=== PATIENT | male | born 1945 | race Caucasian/White ===

== ENCOUNTER 2018-01-10 18:52 | Emergency (ER) | payer OTHER ==
[~2018-01-10] VITALS: Ht 167.6 cm; Wt 98.6 kg
[~2018-01-10 18:52] MED LIST: ACT/30 PO; AMIT75TA2 PO; ASPI-435 PO; ATOR-26 PO; CLOP1TAB5 PO; DONE10TA12 PO; GABA400C PO; GUAI1TAB55 PO; INSUINJ4 SQ; ISOS60TA25 PO; LISI-729 PO; MAGN400T6 PO; METO-551 PO; METO-596 PO; NITR0.4S UT; NVLGI SC; PANT40TA PO; RANO500T PO
[2018-01-10 19:06] VITALS: TEMP 36.7; Ht 167.6 cm; Wt 98.6 kg
[2018-01-10] MEDS ORDERED: ACETAMINOPHEN 500 MG TAB PO STA (19:16)
--- NOTE | 2018-01-10 19:26 | EMERGENCY ROOM VISIT NOTE ---
History Report prepared by Agapito: Kiersten Johnson Under the Supervision of: Dr. Alfonso Corral M.D. First contact with patient: 19:09 Chief Complaint: HEAD INJURY (MINOR) Stated Complaint: HEAD INJURY,ON BLOOD THINNER History of Present Illness The patient is a 72 year old male who presents to the Emergency Room with complaints of a head injury occurring shortly prior to arrival. The patient states that he tripped on the sidewalk and that he hit his head off of a brick wall. He does report having a headache, but denies passing out, nausea, vomiting , double vision, and neck pain. He states that he takes Aspirin and Plavix daily for his heart. He also reports that he takes 600 mg of Gabapentin in the morning and evening and that he takes 4 Tylenol per day. He denies a history of a brain bleed. The patient states that he does not know when his last Tetanus shot was. He reports that he had a CT scan of his carotid arteries today. Source of History: patient Onset: shortly prior to arrival Position: head Quality: other (injury) Associated Symptoms: + headache, No neck pain, No nausea, No vomiting Note: also denies: passing out, double vision Review of Systems See HPI for pertinent positives & negatives. A total of 10 systems reviewed and were otherwise negative. 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 (9) Peripheral vascular disease (10) PERSONAL HX OF TIA,& CEREBRAL INFARCTION W/OUT RES DEFICITS (11) Sleep apnea Family History No pertinent family history Social History Smoking Status: Current Every Day Smoker Marital Status: Housing Status: lives with family Occupation Status: retired Current/Historical Medications Scheduled Amitriptyline Hcl (Elavil), 1 TAB PO HS Aspirin (Aspirin 81), 1 TAB PO QAM Atorvastatin (Lipitor), 1 TAB PO HS Clopidogrel Bisulfate (Plavix), 1 TAB PO HS Donepezil Hydrochloride (Aricept), 1 TAB PO HS Gabapentin (Neurontin), 1 CAP PO TID Insulin Aspart (Novolog), 20 UNITS SC DAILYBB Insulin Aspart (Novolog), 10 UNITS SC DAILYBL Insulin Aspart (Novolog), 15 UNITS SC DAILYBD Insulin Glargine (Lantus Solostar Pen), 45 UNIT SQ QAM Insulin Glargine (Lantus Solostar Pen), 20 UNIT SQ QPM Isosorbide Mononitrate Ext Rel (Imdur Ext Rel), 60 MG PO HS Lisinopril (Prinivil), 5 MG PO HS Magnesium Oxide (Mag-Ox), 400 MG PO QAM Metoprolol Tartrate (Lopressor), 1 TAB PO QPM Metoprolol Tartrate (Lopressor), 1 TAB PO QAM Nitroglycerin (Nitrostat), 0.4 MG UT PRN Pantoprazole Sodium (Protonix), 1 TAB PO QAM Pioglitazone Hcl (Actos), 30 MG PO QAM Ranolazine (Ranexa), 1 TAB PO BID Scheduled PRN Guaifenesin Ext Rel (Mucinex Ext Rel), 600 MG PO Q12 PRN for Cough Allergies Coded Allergies: Fentanyl (Verified Adverse Reaction, Mild, vomiting, 04/10/15) Oxycodone (Verified Adverse Reaction, Mild, vomiting, 04/10/15) Uncoded Allergies: DARVOCET (Allergy, Severe, NAUSEA, 05/16/15) Physical Exam Vital Signs Date Time Temp Pulse Resp B/P (MAP) Pulse Ox O2 Delivery O2 Flow Rate FiO2 01/10/18 20:55 83 164/59 94 01/10/18 19:08 19 92 01/10/18 19:06 36.7 79 19 126/65 92 Room Air Physical Exam GENERAL: Patient is well appearing and in mild distress. EYES: No scleral icterus, unremarkable pupils. HEAD: Large hematoma right posterior scalp with overlying bleeding abrasions. No lacerations. ENT: Mucous membranes moist, no nasal congestion. NECK: No masses appreciated, no meningismus, trachea is midline. RESPIRATORY: No dyspnea. Clear to auscultation and equal bilaterally. No wheeze , no rhonchi. CARDIOVASCULAR: Regular rate and rhythm. No murmurs, rubs, gallops appreciated. BACK: No midline tenderness, no CVA tenderness EXTREMITIES: Normal motion all extremities, no cyanosis, no edema. NEUROLOGIC: Alert and oriented, no acute motor or sensory deficits, no focal weakness, cranial nerves grossly intact. SKIN: No rash, no jaundice, no diaphoresis. Medical Decision & Procedures ER Provider Diagnostic Interpretation: Radiology results and stated below per my review and radiologist interpretation: HEAD WITHOUT CONTRAST (CT) CLINICAL HISTORY: 72 years-old Male with posterior right head injury s/p fall. CTA neck earlier in day. Acute syncope TECHNIQUE: Multiple axial CT images of the head were obtained without contrast. A dose lowering technique was utilized adhering to the principles of ALARA. CT DOSE: 687.98 mGy.cm COMPARISON: CT head 04/10/2015. FINDINGS: No acute intracranial hemorrhage, midline shift, intracranial mass, hydrocephalus, territorial ischemia or abnormal extra-axial collection. Mild brain atrophy with ex vacuo ventriculomegaly. Remote lacunar infarctions about the left bedoya radiata and lentiform nucleus redemonstrated. Senescent calcifications about the basal ganglia. Vascular calcifications are seen at the level of the skull base. The calvarium is intact. Mild mucosal thickening of the sphenoid and left maxillary sinus with moderate ethmoid sinus disease. Soft tissue hematoma of the right parietal scalp at the vertex measures 1.3 x 4.6 cm. No opaque foreign body. Thinning of the bilateral optic lenses. Bilateral exophthalmos. IMPRESSION: 1. No acute intracranial abnormality or calvarial fracture. 2. Right parietal scalp hematoma. 3. Bilateral exophthalmos. The above report was generated using voice recognition software. It may contain grammatical, syntax or spelling errors. Electronically signed by: Magdy Nelson M.D. 01/10/2018 7:50 PM Dictated Date/Time: 01/10/2018 7:46 PM Medications Administered Medications (Trade) Dose Ordered Sig/Sabino Route Start Time Stop Time Status Last Admin Dose Admin Acetaminophen (Tylenol Tab) 1,000 mg NOW STAT PO 01/10/18 19:16 01/10/18 19:17 DC 01/10/18 19:26 1,000 MG Diphtheria/ Pertussis/Tetanus Vacc (Adacel Inj) 0.5 ml ONCE ONCE IM. 01/10/18 19:30 01/10/18 19:31 DC 01/10/18 21:03 0.5 ML ED Course 1909: The patient was evaluated in room C9. A complete history and physical exam was performed. 2020: Reevaluated the patient. Discussed results and discharge instructions: He verbalized understanding and agreement. The patient is ready for discharge. Medical Decision 72 yr old male arrives for evaluation of right posterior head injury. Trip and fall without other injuries. No neck pain nor TTP midline. Moderate headache without other concussion symptoms. Moderate hematoma with some abrasions over it which are deep enough to make it reasonable to treat Adacel. He has negative CT Head. He has with him at home. He was discussed symptoms requiring RTED. Stable and looks well at discharge. Medication Reconcilliation Current Medication List: was personally reviewed by me Blood Pressure Screening Patient's blood pressure: Normal blood pressure Impression Primary Impression: Closed head injury Additional Impressions: Hematoma of right parietal scalp Rrazcdamgl-lqpxjpy-vnlqjmtuz (DTP) vaccination Scribe Attestation The scribe's documentation has been prepared under my direction and personally reviewed by me in its entirety. I confirm that the note above accurately reflects all work, treatment, procedures, and medical decision making performed by me. Departure Information Dispostion Home / Self-Care Referrals Mckinley Wilkes M.D.(KISHOR) (PCP) Forms HOME CARE DOCUMENTATION FORM, IMPORTANT VISIT INFORMATION Patient Instructions ED Head Injury Closed, My [facility] Health Problem Qualifiers
[2018-01-10] MEDS ORDERED: DIPHTHERIA/TETANUS/PERTUSSIS 0.5 ML SYR/VIAL IM. ONE (19:30)
--- NOTE | 2018-01-10 19:51 | DIAGNOSTIC IMAGING REPORT ---
HEAD WITHOUT CONTRAST (CT) CLINICAL HISTORY: 72 years-old Male with posterior right head injury s/p fall. CTA neck earlier in day. Acute syncope TECHNIQUE: Multiple axial CT images of the head were obtained without contrast. A dose lowering technique was utilized adhering to the principles of ALARA. CT DOSE: 687.98 mGy.cm COMPARISON: CT head 04/10/2015. FINDINGS: No acute intracranial hemorrhage, midline shift, intracranial mass, hydrocephalus, territorial ischemia or abnormal extra-axial collection. Mild brain atrophy with ex vacuo ventriculomegaly. Remote lacunar infarctions about the left bedoya radiata and lentiform nucleus redemonstrated. Senescent calcifications about the basal ganglia. Vascular calcifications are seen at the level of the skull base. The calvarium is intact. Mild mucosal thickening of the sphenoid and left maxillary sinus with moderate ethmoid sinus disease. Soft tissue hematoma of the right parietal scalp at the vertex measures 1.3 x 4.6 cm. No opaque foreign body. Thinning of the bilateral optic lenses. Bilateral exophthalmos. IMPRESSION: 1. No acute intracranial abnormality or calvarial fracture. 2. Right parietal scalp hematoma. 3. Bilateral exophthalmos. The above report was generated using voice recognition software. It may contain grammatical, syntax or spelling errors. Electronically signed by: Magdy Nelson M.D. 01/10/2018 7:50 PM Dictated Date/Time: 01/10/2018 7:46 PM
[2018-01-10 20:55] VITALS: BP 164/59; PULSE 83; O2SAT 94
== END 2018-01-10 20:55 | disposition home or self-care (01) ==
LOC: C.EDB 18:53 → C.EDC 20:55
DX: S00.03XA Contusion of scalp, initial encounter (principal); W18.09XA Striking against other object with subsequent fall, initial encounter; Y92.480 Sidewalk as the place of occurrence of the external cause; R51 Headache; Z23 Encounter for immunization; E11.40 Type 2 diabetes mellitus with diabetic neuropathy, unspecified; Z79.4 Long term (current) use of insulin; Z79.82 Long term (current) use of aspirin; E78.5 Hyperlipidemia, unspecified; Z79.02 Long term (current) use of antithrombotics/antiplatelets; I10 Essential (primary) hypertension; F17.200 Nicotine dependence, unspecified, uncomplicated; Z86.73 Personal history of transient ischemic attack (TIA), and cerebral infarction without residual deficits; Z88.6 Allergy status to analgesic agent

== ENCOUNTER 2019-03-01 04:29 | Observation (INO) ==
[2019-03-01] MEDS ORDERED: NITROGLYCERIN 2% OINTMENT 30GM TUBE EXT STA (04:54)
[2019-03-01 05:04] LABS: Basophils # (auto) 0.02 K/uL (0-0.2); Basophils % (auto) 0.3 %; Eosinophils % (auto) 5.4 %; Hematocrit (blood only) 40.3 % (42-52); Immature Granulocytes # (auto) 0.01 K/uL (0.00-0.02); Immature Granulocytes % (auto) 0.1 %; Lymphocytes # (auto) 1.21 K/uL (1.2-3.4); Lymphocytes % (auto) 16.4 %; Mean Corpuscular Hgb Conc 32.3 g/dL (32-36); Mean Platelet Volume 10.6 fL (7.4-10.4); Monocytes # (auto) 0.82 K/uL (0.11-0.59); Monocytes % (auto) 11.1 %; Neutrophils # (auto) 4.91 K/uL (1.4-6.5); Neutrophils % (auto) 66.7 %; Platelet Count 144 K/uL (130-400); RDW Coefficient of Variation 15.6 % (11.5-14.5); RDW Standard Deviation 54.3 fL (36.4-46.3); Red Blood Count 4.24 M/uL (4.7-6.1); White Blood Count 7.37 K/uL (4.8-10.8)
[2019-03-01 05:25] LABS: Albumin Level 3.6 gm/dl (3.4-5.0); BUN Creatinine Ratio 18.1 (10-20); Calcium 8.2 mg/dl (8.5-10.1); Creatinine Clr Calc Pharmacy 53.6 ml/min; Est GFR (African American) 62.3; Est GFR (Non-African American) 53.8; Magnesium 2.3 mg/dl (1.8-2.4); Potassium 4.5 mmol/L (3.5-5.1)
[2019-03-01 05:30] LABS: Albumin Globulin Ratio 0.9 (0.9-2); Bilirubin,Total 0.4 mg/dl (0.2-1); Globulin 3.9 gm/dl (2.5-4.0); Total Protein 7.5 gm/dl (6.4-8.2); Troponin I 0.015 ng/ml (0-0.045)
[2019-03-01] MEDS ORDERED: SODIUM CHLORIDE 0.9% 500 ML IV SCH (06:30)
--- NOTE | 2019-03-01 07:39 | XRay Report ---
XR chest 1V portable HISTORY: Atypical chest pain COMPARISON: Chest 04/10/2015. FINDINGS: The heart remains mildly enlarged. There are poststernotomy changes. No pleural effusions. No pneumothorax. The lungs are clear. No evidence for pulmonary edema. IMPRESSION: No acute process within the chest. Stable mild cardiomegaly. Electronically signed by: Norberto Chan M.D. 03/01/2019 7:38 AM
--- NOTE | 2019-03-01 08:15 | Emergency Department Note ---
Entered by Alan Corado acting as a scribe for Melody Krueger DO History of Present Illness General Chief complaint: Chest Pain Stated complaint: PAIN IN CHEST Time Seen by Provider: 03/01/19 04:39 Source: patient History of Present Illness Provider complaint: chest pain Onset (ago): hour(s) 4 Location: chest Pain Consistency: + intermittent Maximum Pain Intensity: 3 Relieved By: + none Exacerbated By: + none Associated symptoms: + denies other symptoms The patient is a 73 y/o male who presents to the emergency department for intermittent chest pain that began 4 hours prior to arrival. The patient notes that he took 3 aspirins and 4 nitroglycerins before bed but the pain did not go away so he came to the emergency department. The patient notes that yesterday evening before bed he had similar pain but 3 nitroglycerins took away and took away the pain until this evening. He states that he follows with Dr. Ordonez for his angina with execration. He also reports that he has nitroglycerin for his angina though he hasnt needed to use them in the past. The patient has a history of angioplasty, triple bypass surgery, early onset heart issues, and diabetes. Patient states he does still smoke. The patient denies sweaty, being winded, nausea, and any other symptoms. Patient denies any recent illness or change in activity. States he has been compliant with all of his medications. Patient states no pain or symptoms currently. Patient states he does have a his tory of GERD and does take a stomach medication. States the symptoms last night and tonight are different than his usual heartburn/GERD symptoms. Home Medications Home Medications Medication Instructions Recorded Confirmed Type Medical Marijuana 1 - 3 drp PO UD 03/01/19 03/01/19 History Ranexa 1 tab PO BID 03/01/19 03/01/19 History acetaminophen [Tylenol Extra 1,000 mg PO Q6H PRN 03/01/19 03/01/19 History Strength] aspirin [Aspirin Childrens] 81 mg PO QAM 03/01/19 03/01/19 History atorvastatin 80 mg PO HS 03/01/19 03/01/19 History clopidogrel 75 mg PO HS 03/01/19 03/01/19 History donepezil 10 mg PO HS 03/01/19 03/01/19 History gabapentin 400 mg PO TID 03/01/19 03/01/19 History gabapentin 600 mg PO TID 03/01/19 03/01/19 History guaifenesin [Mucinex] 600 mg PO Q12H PRN 03/01/19 03/01/19 History hydrochlorothiazide 12.5 mg PO 3XWK PRN 03/01/19 03/01/19 History insulin NPH isoph U-100 human 25 unit SUBCUT .@ MIDNIGHT DAILY 03/01/19 03/01/19 History [Novolin N NPH U-100 Insulin] insulin NPH isoph U-100 human 36 unit SUBCUT .@ NOON DAILY 03/01/19 03/01/19 History [Novolin N NPH U-100 Insulin] insulin regular human [Novolin R 10 unit SUBCUT .WITH LUNCH 03/01/19 03/01/19 History Regular U-100 Insuln] insulin regular human [Novolin R 15 unit SUBCUT .WITH BREAKFAST 03/01/19 03/01/19 History Regular U-100 Insuln] insulin regular human [Novolin R 15 unit SUBCUT .WITH DINNER 03/01/19 03/01/19 History Regular U-100 Insuln] isosorbide mononitrate 60 mg PO AMHS 03/01/19 03/01/19 History lisinopril 5 mg PO HS 03/01/19 03/01/19 History magnesium oxide 400 mg PO QAM 03/01/19 03/01/19 History metoprolol tartrate 100 mg PO BID 03/01/19 03/01/19 History nitroglycerin [Nitrostat] 0.4 mg SUBLINGUAL UD PRN MDD 3 03/01/19 03/01/19 History doses in 15 minutes nortriptyline 75 mg PO HS 03/01/19 03/01/19 History pantoprazole 40 mg PO QAM 03/01/19 03/01/19 History pioglitazone 30 mg PO QAM 03/01/19 03/01/19 History Allergies Allergy/AdvReac Type Severity Reaction Status Date / Time fentanyl AdvReac Mild vomiting Verified 03/01/19 06:12 oxycodone AdvReac Mild vomiting Verified 03/01/19 06:12 DARVOCET Allergy Severe NAUSEA Uncoded 03/01/19 06:12 Past Med/Surg History Medical History Diabetes (Chronic) Surgical History H/O angioplasty S/P triple vessel bypass Family History Other Heart disease Social History Feels Safe at Home: Yes Smoking Status: Former smoker Review of Systems See HPI for pertinent positives & negatives. and A total of 10 systems reviewed and were otherwise negative Physical Exam Vital Signs Vital Signs - 24 hr 03/01/19 04:31 03/01/19 04:41 03/01/19 04:45 Temperature 36.5 C Temperature Source Oral Sepsis Recent Fever Within 48 Hours No Sepsis Action Taken by Nursing No Action Required Pulse Rate 77 78 78 Pulse Rate [Apical] Pulse Rate from SpO2 Sensor 78 78 Respiratory Rate 20 18 17 Respiratory Effort / Characteristics Non-Labored Spontaneous Respiratory Depth Normal Blood Pressure 147/75 H 152/78 H Blood Pressure [Right Arm] Blood Pressure Mean 99 102 Blood Pressure Mean [Right Arm] Pulse Oximetry 97 94 94 Oxygen Delivery Method Room Air Oxygen Flow Rate 03/01/19 05:00 03/01/19 05:30 03/01/19 06:29 Temperature Temperature Source Sepsis Recent Fever Within 48 Hours Sepsis Action Taken by Nursing Pulse Rate 75 72 Pulse Rate [Apical] 72 Pulse Rate from SpO2 Sensor 75 72 Respiratory Rate 16 21 18 Respiratory Effort / Characteristics Respiratory Depth Normal Blood Pressure 159/63 H 152/61 H Blood Pressure [Right Arm] 120/44 L Blood Pressure Mean 95 91 Blood Pressure Mean [Right Arm] 69 Pulse Oximetry 96 96 94 Oxygen Delivery Method Room Air Oxygen Flow Rate 03/01/19 07:06 Temperature Temperature Source Sepsis Recent Fever Within 48 Hours Sepsis Action Taken by Nursing Pulse Rate Pulse Rate [Apical] 75 Pulse Rate from SpO2 Sensor Respiratory Rate 16 Respiratory Effort / Characteristics Respiratory Depth Blood Pressure Blood Pressure [Right Arm] 117/47 L Blood Pressure Mean Blood Pressure Mean [Right Arm] 70 Pulse Oximetry 93 Oxygen Delivery Method Nasal Cannula Oxygen Flow Rate 2 GENERAL: alert, well appearing, well nourished, no distress, non-toxic EYE EXAM: normal conjunctiva, PERRL and EOM's grossly intact OROPHARYNX: no exudate, no erythema, lips, buccal mucosa, and tongue normal and mucous membranes are moist NECK: supple, no nuchal rigidity, no adenopathy, non-tender LUNGS: Clear to auscultation. Normal chest wall mechanics. No wheezes, rhonchi, or, rales. HEART: no murmurs, S1 normal and S2 normal, no reproducible chest pain ABDOMEN: abdomen soft, non-tender, normo-active bowel sounds, no masses, no rebound or guarding. BACK: Back is symmetrical on inspection and there is no deformity, no midline tenderness, no CVA tenderness. SKIN: no rashes and no bruising, no petechiae UPPER EXTREMITIES: upper extremities are grossly normal. FROM, nml pulses b/l. LOWER EXTREMITIES: 1+ bilateral lower extremity edema, well healed surgical scare to distal lower extremity consistent with prior vein harvest. NEURO EXAM: Cranial nerves II-XII intact, normal speech, no weakness of arms, no weakness of legs. Course 0444: Past medical records reviewed. The patient was evaluated in room A10. A complete history and physical exam was performed. 0548: Recent outpatient cardiology visit notes reviewed. Patient with extensive CAD and PVD. 0617: I checked on the patient. Updated on results. He notes no current chest pain. 0634: I spoke with Dr. Vivas hospitalist. Administered Medications Sodium Chloride (Nss) 500 mls @ 125 mls/hr IV .Q4H [facility] Stop: 03/31/19 06:29 Last Admin: 03/01/19 06:26 Dose: 125 mls/hr Documented by: [id number] Discontinued Medications Nitroglycerin (Nitro-Bid 2%) 1 inch EXT NOW STA Stop: 03/01/19 04:55 Last Admin: 03/01/19 05:05 Dose: 1 inch Documented by: [id number] Medical Decision Making Differential Diagnosis the differential was considered includes acute myocardial infarction, acute coronary syndrome, myocarditis, pericarditis, pericardial effusions /tamponad, esophageal perforation, thoracic aortic dissection, pulmonary embolism, pneumonia, pneumothorax, pancreatitis, shingles, acute cholecystitis, perforated abdominal viscus. Medical Records Attestation: I reviewed the patient's medical records. Home Medications Current Medication List: was personally reviewed by me Laboratory Data Attestation: I reviewed the patient's lab results. Result diagrams: 03/01/19 04:48 03/01/19 04:48 Lab Results 03/01/19 03/01/19 Range/Units 04:48 04:48 WBC 7.37 (4.8-10.8) K/uL RBC 4.24 L (4.7-6.1) M/uL Hgb 13.0 L (14.0-18.0) g/dL Hct 40.3 L (42-52) % MCV 95.0 (80-100) fL MCH 30.7 (25-34) pg MCHC 32.3 (32-36) g/dL RDW Std Deviation 54.3 H (36.4-46.3) fL RDW Coeff of Geremias 15.6 H (11.5-14.5) % Plt Count 144 (130-400) K/uL MPV 10.6 H (7.4-10.4) fL Immature Gran % (Auto) 0.1 % Neut % (Auto) 66.7 % Lymph % (Auto) 16.4 % Rogers % (Auto) 11.1 % Eos % (Auto) 5.4 % Baso % (Auto) 0.3 % Immature Gran # (Auto) 0.01 (0.00-0.02) K/uL Neut # (Auto) 4.91 (1.4-6.5) K/uL Lymph # (Auto) 1.21 (1.2-3.4) K/uL Rogers # (Auto) 0.82 H (0.11-0.59) K/uL Eos # (Auto) 0.40 (0-0.5) K/uL Baso # (Auto) 0.02 (0-0.2) K/uL Sodium 139 (136-145) mmol/L Potassium 4.5 (3.5-5.1) mmol/L Chloride 107 (98-107) mmol/L Carbon Dioxide 29 (21-32) mmol/L Anion Gap 3.0 (3-11) BUN 24 H (7-18) mg/dl Creatinine 1.30 (0.6-1.4) mg/dl Est Cr Clr Drug Dosing 53.6 ml/min Est GFR ( Amer) 62.3 Est GFR (Non-Af Amer) 53.8 BUN/Creatinine Ratio 18.1 (10-20) Glucose 183 H (70-99) mg/dl Calcium 8.2 L (8.5-10.1) mg/dl Magnesium 2.3 (1.8-2.4) mg/dl Total Bilirubin 0.4 (0.2-1) mg/dl AST 16 (15-37) U/L ALT 21 (12-78) U/L Alkaline Phosphatase 111 (45-117) U/L Troponin I 0.015 (0-0.045) ng/ml NT-Pro-B Natriuret Pep 698 (0-900) pg/ml Total Protein 7.5 (6.4-8.2) gm/dl Albumin 3.6 (3.4-5.0) gm/dl Globulin 3.9 (2.5-4.0) gm/dl Albumin/Globulin Ratio 0.9 (0.9-2) Lipase 190 (73-393) U/L ECG Data Indication: chest pain Rate (beats per minute): 79 Rhythm: sinus rhythm Findings: + other (QTC and QRS are normal.), + 1st degree AV block and + left axis deviation; no acute ischemic change Comparison ECG Date: from (03/12/15) Change: no significant change Blood Pressure Blood Pressure Findings: Elevated blood pressure Blood Pressure Disposition: further management by hospitalist MDM Narrative Patient here well-appearing at rest with no recurrent symptoms. Patient with significant past medical history for CAD and peripheral vascular disease and concerning story for evolving anginal symptoms over the last 48 hours. No other evidence of acute infectious etiology. Chest x-ray without effusions, pulmonary edema, or focal infiltrate. Patient hemodynamically stable here. Patient with no acute EKG changes and first troponin negative. Given concerning story and significant risk factors and past medical history, case discussed with hospitalist for additional inpatient evaluation and likely cardiology consultation. Patient and were made aware of all results, were in agreement with plan. Patient's other labs appear stable compared to baseline including his creatinine and H&H. Patient with mild hyperglycemia although is a known diabetic. No evidence of DKA or HHNK. Impression & Plan Unstable angina, Chest pain Discharge Plan Visit Data Chief Complaint: Chest Pain Stated Complaint: PAIN IN CHEST ED Provider: Melody Krueger Discharge Problem: Unstable angina, Chest pain Patient Disposition: Being Evaluated by Hospitalist Forms Stand Alone Forms: Call Back Authorization, [facility] StoreAge Prescriptions Prescriptions: No Action atorvastatin 80 mg Tablet 80 mg PO HS RF: 0 clopidogrel 75 mg Tablet 75 mg PO HS RF: 0 pantoprazole 40 mg Tablet,Delayed Release (Dr/Ec) 40 mg PO QAM RF: 0 aspirin [Aspirin Childrens] 81 mg Tablet,Chewable 81 mg PO QAM RF: 0 magnesium oxide 400 mg magnesium Tablet 400 mg PO QAM RF: 0 metoprolol tartrate 100 mg Tablet 100 mg PO BID RF: 0 donepezil 10 mg Tablet 10 mg PO HS RF: 0 nitroglycerin [Nitrostat] 0.4 mg Tablet, Sublingual 0.4 mg sublingual UD MDD 3 doses in 15 minutes PRN (Reason: Chest Pain) RF: 0 gabapentin 600 mg Tablet 600 mg PO TID RF: 0 gabapentin 400 mg Capsule 400 mg PO TID RF: 0 isosorbide mononitrate 60 mg Tablet Extended Release 24 Hr 60 mg PO AMHS RF: 0 lisinopril 10 mg Tablet 5 mg PO HS RF: 0 pioglitazone 30 mg Tablet 30 mg PO QAM RF: 0 guaifenesin [Mucinex] 600 mg Tablet Extended Release 12hr 600 mg PO Q12H PRN (Reason: cough and congestion) RF: 0 nortriptyline 75 mg Capsule 75 mg PO HS RF: 0 Novolin R Regular U-100 Insuln 100 unit/mL solution 10 unit subcut .WITH LUNCH RF: 0 Novolin R Regular U-100 Insuln 100 unit/mL solution 15 unit subcut .WITH DINNER RF: 0 Novolin R Regular U-100 Insuln 100 unit/mL solution 15 unit subcut .WITH BREAKFAST RF: 0 Novolin N NPH U-100 Insulin 100 unit/mL suspension 36 unit subcut .@ NOON DAILY RF: 0 Novolin N NPH U-100 Insulin 100 unit/mL suspension 25 unit subcut .@ MIDNIGHT DAILY RF: 0 acetaminophen [Tylenol Extra Strength] 500 mg Tablet 1,000 mg PO Q6H PRN (Reason: Pain) RF: 0 hydrochlorothiazide 12.5 mg Tablet 12.5 mg PO 3XWK PRN (Reason: Unknown) RF: 0 Ranexa 1 tab PO BID RF: 0 Medical Marijuana 1 - 3 drp PO UD RF: 0 Referrals Referrals: Mckinley Wilkes MD [Primary Care Provider] - Discharge Problem: Chest pain Qualifiers: Chest pain type: unspecified Qualified Code(s): R07.9 - Chest pain, unspecified The scribe's documentation has been prepared under my direction and personally reviewed by me in its entirety. I confirm that the note above accurately reflects all work, treatment, procedures, and medical decision making performed by me.
--- NOTE | 2019-03-01 09:04 | History & Physical Report ---
Date of Service March 01, 2019 Assessment & Plan (1) Angina pectoris: (2) CAD (coronary artery disease): CAD s/p angioplasty RCA in 1988, s/p CABG x 3 in 1997, NSTEMI demand ischemia after spinal surgery in 2012, S/P DWAYNE and angioplasty left circumflex in 2016; H/O chronic angina Pt presented with nonradiating anterior chest pain with associated mild diaphoresis started 1 AM this morning. Took 4 nitro and 3 baby aspirin at home without relief. Denies shortness of breath, dizziness, nausea, vomiting, palpitations. Presented to ER vitals were stable. 1 inch Nitropaste was placed in ER and patient has been chest pain free since. Troponin: 0.015, EKG no acute ischemic changes noted, CXR: No acute changes CHEST PAIN R/O ACS. Risk factors: Hx, CAD, HTN, hyperlipidemia, DM, obesity, tobacco use -Monitor Vitals -Repeat EKG in am -Will trend troponin -Echo -Lipid panel in am, continue statin -Continue ASA & beta ning -Has nitropaste in place -Continue Plavix, Imdur -Cardiology consult (3) PAD (peripheral artery disease): S/P angioplasty of left external iliac and right common iliac stenosis 07/2010; Dr. Brendon Royal at [facility] [place] (4) Diabetes mellitus, type II: A1c: 6.5 on 12/14/18 -Hold Actos -Hold home insulin -Novolog sliding scale, Lantus, Glycemic pharmacy consult to assist (5) HTN (hypertension): Stable -Continue Lisinopril, metoprolol -Holding home prn HCTZ and reassess extremity edema tomorrow (6) HLD (hyperlipidemia): -Continue atorvastatin (7) VENICE (obstructive sleep apnea): -CPAP HS with 2L oxygen (8) GERD (gastroesophageal reflux disease): -Continue PPI (9) Tobacco use: Currently smoking 4 cigarettes a day -Smoking cessation encouraged -Denies nicotine patch (10) Chronic back pain: On medical marijuana -Continue gabapentin DVT Prophylaxis -Heparin SQ Full Code as per discussion with pt Follows with Dr Wilkes for routine care Pt was seen and care coordinated with Dr Peralta. See addendum History of Present Illness Chief Complaint: CP Primary Care Provider: Mckinley Wilkes MD Pt is 73 y/o M with PMH CAD s/p angioplasty RCA in 1988, s/p CABG x 3 in 1997, NSTEMI demand ischemia after spinal surgery in 2012, S/P DWAYNE and angioplasty left circumflex in 2017, chronic angina, PAD, AAA, TIA, HTN, HLD, DM II, tobacco use, VENICE, COPD presented to ER with c/o CP. Patient states last night around 1 AM started with anterior chest pain with associated mild diaphoresis. Chest pain was nonradiating. Denies SOB, dizziness, palpitations, N/V. Patient states took 3 nitroglycerin without relief and then took a fourth nitroglycerin without relief. Reports took 3 baby aspirin. Chest pain continued and he presented to the ER this morning. In the ER patient 1 inch Nitropaste was applied and patient has been chest pain-free since. 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 Patient states chest pain he experienced today felt like his prior anginal chest pain. Patient followed up with cardiology-Dr. Ordonez in 01/2019 and was started on HCTZ couple times a week for BLE edema. Patient states this is been helpful at decreasing his BLE edema. Denies any increased edema. Denies fever/chills, N/V/D/C, MARI, dizziness, syncope, vision changes, neck pain, SOB, orthopnea, palpitations, cough, sore throat, choking, otalgia, rhinorrhea, abdominal pain, paresthesias, weakness, rashes, urinary symptoms. History cardiac cath 2017: Patent PFEIFFER-LAD and SVG-right PDA, Left circumflex received DWAYNE proximal lesion and balloon to mid lesion. Allergies Allergy/AdvReac Type Severity Reaction Status Date / Time fentanyl AdvReac Mild vomiting Verified 03/01/19 06:12 oxycodone AdvReac Mild vomiting Verified 03/01/19 06:12 DARVOCET Allergy Severe NAUSEA Uncoded 03/01/19 06:12 Home Medications Home Medications Medication Instructions Recorded Confirmed Type Medical Marijuana 1 - 3 drp PO UD 03/01/19 03/01/19 History acetaminophen [Tylenol Extra 1,000 mg PO BID PRN 03/01/19 03/01/19 History Strength] aspirin [Aspirin Childrens] 81 mg PO QAM 03/01/19 03/01/19 History atorvastatin 80 mg PO HS 03/01/19 03/01/19 History clopidogrel 75 mg PO HS 03/01/19 03/01/19 History donepezil 10 mg PO HS 03/01/19 03/01/19 History gabapentin 600 mg PO TID 03/01/19 03/01/19 History guaifenesin [Mucinex] 600 mg PO Q12H PRN 03/01/19 03/01/19 History hydrochlorothiazide 12.5 mg PO 3XWK PRN 03/01/19 03/01/19 History insulin NPH isoph U-100 human 25 unit SUBCUT .@ MIDNIGHT DAILY 03/01/19 03/01/19 History [Novolin N NPH U-100 Insulin] insulin NPH isoph U-100 human 36 unit SUBCUT .@ NOON DAILY 03/01/19 03/01/19 History [Novolin N NPH U-100 Insulin] insulin regular human [Novolin R 10 unit SUBCUT .WITH LUNCH 03/01/19 03/01/19 History Regular U-100 Insuln] insulin regular human [Novolin R 15 unit SUBCUT .WITH BREAKFAST 03/01/19 03/01/19 History Regular U-100 Insuln] insulin regular human [Novolin R 15 unit SUBCUT .WITH DINNER 03/01/19 03/01/19 History Regular U-100 Insuln] isosorbide mononitrate 60 mg PO AMHS 03/01/19 03/01/19 History lisinopril 5 mg PO HS 03/01/19 03/01/19 History magnesium oxide 400 mg PO QAM 03/01/19 03/01/19 History metoprolol tartrate 100 mg PO BID 03/01/19 03/01/19 History nitroglycerin [Nitrostat] 0.4 mg SUBLINGUAL UD PRN MDD 3 03/01/19 03/01/19 History doses in 15 minutes nortriptyline 75 mg PO HS 03/01/19 03/01/19 History pantoprazole 40 mg PO QAM 03/01/19 03/01/19 History pioglitazone 30 mg PO QAM 03/01/19 03/01/19 History Past Med/Surg History Medical History Angina pectoris (Chronic) AAA (abdominal aortic aneurysm) (Chronic) PAD (peripheral artery disease) (Chronic) S/P angioplasty of left external iliac and right common iliac stenosis 07/2010; Dr. 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) Diabetes (Chronic) Surgical History History of cataract surgery (Chronic) History of cardiac cath (Chronic) H/O angioplasty S/P triple vessel bypass Family History Other Diabetes Heart disease Stroke Social History Feels Safe at Home: Yes Smoking Status: Current every day smoker Cigarettes Per Day: 4 Hx Alcohol Use: Yes Alcohol Intake Frequency: Holidays/Special Occasions Hx Substance Use: Yes Substance Use Type Other:: Medical marijuana Review of Systems Review of Systems: All systems reviewed & are unremarkable except as noted in HPI & below Physical Exam Physical Exam: General: no acute distress, obese, chronic ill appearing Head: normocephalic, atraumatic Eyes: PERRL, EOM's intact, conjunctiva non-injected, anicteric ENT: normal inspection external ears, nose, mucous membranes moist Neck: supple, trachea midline Lungs: clear, no respiratory distress, no wheezing/rhonchi/rales CV: RRR, no murmur, anterior mid chest wall with tenderness to palpation, 1+ pretibial edema Abd: normal BS, soft, non-tender Ext: no cyanosis, no calf tenderness Neuro: A&O x 3, no focal deficits noted, normal affect Skin: warm, dry Results & Data Vital Signs (Past 12 Hours) Vital Signs Temp Pulse Pulse Resp BP BP Pulse Ox 03/01/19 08:32 66 18 123/76 98 03/01/19 07:06 75 16 117/47 L 93 03/01/19 06:29 72 18 120/44 L 94 03/01/19 05:30 72 21 152/61 H 96 03/01/19 05:00 75 16 159/63 H 96 03/01/19 04:45 78 17 94 03/01/19 04:41 78 18 152/78 H 94 03/01/19 04:31 36.5 C 77 20 147/75 H 97 Laboratory Results Short CBC 03/01/19 Range/Units 04:48 WBC 7.37 (4.8-10.8) K/uL Hgb 13.0 L (14.0-18.0) g/dL Hct 40.3 L (42-52) % Plt Count 144 (130-400) K/uL BMP 03/01/19 04:48 Sodium 139 Potassium 4.5 Chloride 107 Carbon Dioxide 29 BUN 24 H Creatinine 1.30 Glucose 183 H Calcium 8.2 L Cardiac Enzymes 03/01/19 Range/Units 04:48 Troponin I 0.015 (0-0.045) ng/ml Liver Function 03/01/19 Range/Units 04:48 Total Bilirubin 0.4 (0.2-1) mg/dl AST 16 (15-37) U/L ALT 21 (12-78) U/L Alkaline Phosphatase 111 (45-117) U/L Albumin 3.6 (3.4-5.0) gm/dl Diagnostic Findings CXR: IMPRESSION: No acute process within the chest. Stable mild cardiomegaly. Supervising Physician Co-Signing Physician Notes I have seen and examined the patient with physician equity sales assistant and agree with the assessment and plan as initially documented and would like to update that Patient is now to be transferred to [facility] in [place] for non-ST segment elevation myocardial infarction. Patient currently on IV heparin drip. Patient's care was discussed by software security architect Dr. Dee to the accepting cardiology physician Dr. Mckinley Cadena with possible plans for cardiac catheterization On exam General: comfortable Heart: regular rate and rhytm Lungs: clear to auscultation bilaterally Abdomen: soft, nontender, positive bowel sounds Extremities: moves all extremities
[2019-03-01] MEDS ORDERED: CARBOHYDRATES FOR HYPOGLYCEMIA PO PRN (09:29)
[2019-03-01] MEDS ORDERED: MAGNESIUM OXIDE 400 MG TAB PO SCH (09:29)
[2019-03-01] MEDS ORDERED: GLUCOSE 10 TABS/TUBE PO PRN (09:29)
[2019-03-01] MEDS ORDERED: GLUCAGON FOR INJ 1 MG VIAL SQ PRN (09:29)
[2019-03-01] MEDS ORDERED: PANTOprazole 40 MG TAB PO SCH (09:29)
[2019-03-01] MEDS ORDERED: ISOSORBIDE MONO EXTENDED REL 60 MG TABCR PO SCH (09:29)
[2019-03-01] MEDS ORDERED: METOPROLOL TARTRATE 100 MG TAB PO SCH (09:29)
[2019-03-01] MEDS ORDERED: DEXTROSE 50% 50 ML SYRINGE IV PRN (09:29)
[2019-03-01] MEDS ORDERED: GLUCOSE 40% GEL 15 GM TUBE PO PRN (09:29)
[2019-03-01] MEDS ORDERED: ASPIRIN 81 MG ECTAB PO SCH (09:29)
[2019-03-01] MEDS ORDERED: PHARMACY GLYCEMIC MGMT CONSULT SCH (11:00)
[2019-03-01] MEDS ORDERED: PERFLUTREN LIPID MICROSPHERE (DEFINITY) IV ONE (11:11)
[2019-03-01] MEDS: GABAPENTIN 600 MG TAB PO SCH ×2 (11:22→14:39)
[2019-03-01] MEDS ORDERED: INSULIN HUMAN NPH SC ONE (11:30)
--- NOTE | 2019-03-01 11:31 | Cardiology Consultation ---
Date of Consultation March 01, 2019 Assessment & Plan (1) NSTEMI (non-ST elevated myocardial infarction): The patient is currently pain-free. I will start him on heparin in addition to his current medications. His last cardiac catheterization and stent placement in 2016 along with the majority of his cardiac interventions have been done at [facility] in [place]. He will need a repeat cardiac catheterization. The patient is requesting [facility] and I am in agreement. I will make contact and arrange for transfer, most likely in the morning as long as patient remains stable. (2) CAD (coronary artery disease): (3) Diabetes mellitus, type II: (4) Hx of CABG: History of Present Illness Attending Physician: Nick Peralta MD History of Present Illness This is a 73-year-old male patient with the history as outlined below. The patient has significant vascular disease and chronic angina. He states his last angina episode was several months ago and was relieved with sublingual nitroglycerin. He has been doing well and then last evening he was awoken from sleep with severe angina. He took a total of 4 sublingual nitroglycerin which did not resolve his discomfort and he was brought to the emergency department by his . After treatment in the emergency department his chest pain went away and he was admitted to the hospital. His EKG did not show any acute changes. His initial troponin was essentially negative at point of care in the emergency department. His second troponin however has elevated consistent with a non- STEMI. He denies shortness of breath orthopnea. He has no prior history of cardiac arrhythmias. Past medical history: 1.Long-standing history of coronary artery disease status post remote coronary intervention with angioplasty to the right coronary artery in 1988. 2.History of coronary bypass grafting in 1997 for a diffuse 3-vessel disease receiving a PFEIFFER graft to the LAD, saphenous vein graft to the circumflex obtuse marginal, and saphenous vein graft to the posterior descending artery. 3.Chronic class II angina pectoris. 4.History of non-ST segment elevation myocardial infarction in the setting of demand based ischemia with associated spinal surgery in August 2012. 5.Chronic obstructive lung disease. 6.History of past TIA. 7.History of atherosclerotic peripheral vascular disease status post PTCA of the left external iliac and right common iliac arteries in July of 2010. 8.Atherosclerotic carotid plaquing. 9.Hyperlipidemia. 10.Long-standing insulin-dependent diabetes mellitus. 11.Chronic obstructive lung disease. 12. Status post coronary intervention, proximal and mid left circumflex on 01/29/2017, receiving drug-eluting stent to proximal lesion, balloon angioplasty to the distal lesion. Allergies Allergy/AdvReac Type Severity Reaction Status Date / Time fentanyl AdvReac Mild vomiting Verified 03/01/19 06:12 oxycodone AdvReac Mild vomiting Verified 03/01/19 06:12 DARVOCET Allergy Severe NAUSEA Uncoded 03/01/19 06:12 Home Medications Home Medications Medication Instructions Recorded Confirmed Type Medical Marijuana 1 - 3 drp PO UD 03/01/19 03/01/19 History acetaminophen [Tylenol Extra 1,000 mg PO BID PRN 03/01/19 03/01/19 History Strength] aspirin [Aspirin Childrens] 81 mg PO QAM 03/01/19 03/01/19 History atorvastatin 80 mg PO HS 03/01/19 03/01/19 History clopidogrel 75 mg PO HS 03/01/19 03/01/19 History donepezil 10 mg PO HS 03/01/19 03/01/19 History gabapentin 600 mg PO TID 03/01/19 03/01/19 History guaifenesin [Mucinex] 600 mg PO Q12H PRN 03/01/19 03/01/19 History hydrochlorothiazide 12.5 mg PO 3XWK PRN 03/01/19 03/01/19 History insulin NPH isoph U-100 human 25 unit SUBCUT .@ MIDNIGHT DAILY 03/01/19 03/01/19 History [Novolin N NPH U-100 Insulin] insulin NPH isoph U-100 human 36 unit SUBCUT .@ NOON DAILY 03/01/19 03/01/19 History [Novolin N NPH U-100 Insulin] insulin regular human [Novolin R 10 unit SUBCUT .WITH LUNCH 03/01/19 03/01/19 History Regular U-100 Insuln] insulin regular human [Novolin R 15 unit SUBCUT .WITH BREAKFAST 03/01/19 03/01/19 History Regular U-100 Insuln] insulin regular human [Novolin R 15 unit SUBCUT .WITH DINNER 03/01/19 03/01/19 History Regular U-100 Insuln] isosorbide mononitrate 60 mg PO AMHS 03/01/19 03/01/19 History lisinopril 5 mg PO HS 03/01/19 03/01/19 History magnesium oxide 400 mg PO QAM 03/01/19 03/01/19 History metoprolol tartrate 100 mg PO BID 03/01/19 03/01/19 History nitroglycerin [Nitrostat] 0.4 mg SUBLINGUAL UD PRN MDD 3 03/01/19 03/01/19 History doses in 15 minutes nortriptyline 75 mg PO HS 03/01/19 03/01/19 History pantoprazole 40 mg PO QAM 03/01/19 03/01/19 History pioglitazone 30 mg PO QAM 03/01/19 03/01/19 History Patient History Medical History Angina pectoris (Chronic) AAA (abdominal aortic aneurysm) (Chronic) PAD (peripheral artery disease) (Chronic) S/P angioplasty of left external iliac and right common iliac stenosis 07/2010; Dr. 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) Diabetes (Chronic) Surgical History History of cataract surgery (Chronic) History of cardiac cath (Chronic) H/O angioplasty S/P triple vessel bypass Family History Other Diabetes Heart disease Stroke Social History Feels Safe at Home: Yes Smoking Status: Current every day smoker Cigarettes Per Day: 4 Hx Alcohol Use: Yes Alcohol Intake Frequency: Holidays/Special Occasions Hx Substance Use: Yes Substance Use Type Other:: Medical marijuana Review of Systems Review of Systems: All systems reviewed & are unremarkable except as noted in HPI & below Nothing additional to add Physical Exam Physical Exam: General: no acute distress and stated age Head: normocephalic, no masses, lesions, tenderness or abnormalities Eyes: conjunctiva are pink and non-injected, sclera clear Neck: supple, no adenopathy, no bruits, normal jugular venous pulse, no hepatojugular reflux Chest: normal shape and normal respiratory effort Lungs: clear to auscultation and percussion Cardiac Exam: - regular rate & rhythm, no murmurs gallops or rubs - normal S1, normal S2 Pulses: 2(+) throughout Abdomen: abdomen soft, non-tender, no abnormal masses and no hepatosplenomegaly Musculoskeletal: no gait disturbance, no joint inflammation, no deforming arthritis Extremities: no edema and no cyanosis Neuro: grossly normal exam Results & Data Vital Signs (Past 12 Hours) Vital Signs Temp Pulse Pulse Resp BP BP Pulse Ox 03/01/19 10:39 66 03/01/19 09:11 78 16 116/42 L 98 03/01/19 08:39 36.6 C 66 16 136/76 96 03/01/19 08:32 66 18 123/76 98 03/01/19 07:06 75 16 117/47 L 93 03/01/19 06:29 72 18 120/44 L 94 03/01/19 05:30 72 21 152/61 H 96 03/01/19 05:00 75 16 159/63 H 96 03/01/19 04:45 78 17 94 03/01/19 04:41 78 18 152/78 H 94 03/01/19 04:31 36.5 C 77 20 147/75 H 97 Laboratory Results Laboratory Results - last 24 hr 03/01/19 03/01/19 03/01/19 04:48 04:48 09:56 WBC 7.37 RBC 4.24 L Hgb 13.0 L Hct 40.3 L MCV 95.0 MCH 30.7 MCHC 32.3 RDW Std Deviation 54.3 H RDW Coeff of Geremias 15.6 H Plt Count 144 MPV 10.6 H Immature Gran % (Auto) 0.1 Neut % (Auto) 66.7 Lymph % (Auto) 16.4 Hall % (Auto) 11.1 Eos % (Auto) 5.4 Baso % (Auto) 0.3 Immature Gran # (Auto) 0.01 Neut # (Auto) 4.91 Lymph # (Auto) 1.21 Hall # (Auto) 0.82 H Eos # (Auto) 0.40 Baso # (Auto) 0.02 PT INR Sodium 139 Potassium 4.5 Chloride 107 Carbon Dioxide 29 Anion Gap 3.0 BUN 24 H Creatinine 1.30 Est Cr Clr Drug Dosing 53.6 Est GFR ( Amer) 62.3 Est GFR (Non-Af Amer) 53.8 BUN/Creatinine Ratio 18.1 Glucose 183 H POC Glucose Calcium 8.2 L Magnesium 2.3 Total Bilirubin 0.4 AST 16 ALT 21 Alkaline Phosphatase 111 Troponin I 0.015 1.180 H* NT-Pro-B Natriuret Pep 698 Total Protein 7.5 Albumin 3.6 Globulin 3.9 Albumin/Globulin Ratio 0.9 Lipase 190 03/01/19 03/01/19 03/01/19 11:06 11:39 11:52 WBC 6.37 RBC 3.95 L Hgb 11.8 L Hct 37.3 L MCV 94.4 MCH 29.9 MCHC 31.6 L RDW Std Deviation 52.7 H RDW Coeff of Geremias 15.4 H Plt Count 119 L MPV 10.3 Immature Gran % (Auto) 0.5 Neut % (Auto) 64.7 Lymph % (Auto) 16.6 Hall % (Auto) 11.6 Eos % (Auto) 6.1 Baso % (Auto) 0.5 Immature Gran # (Auto) 0.03 H Neut # (Auto) 4.12 Lymph # (Auto) 1.06 L Hall # (Auto) 0.74 H Eos # (Auto) 0.39 Baso # (Auto) 0.03 PT 10.3 INR 1.0 Sodium Potassium Chloride Carbon Dioxide Anion Gap BUN Creatinine Est Cr Clr Drug Dosing Est GFR ( Amer) Est GFR (Non-Af Amer) BUN/Creatinine Ratio Glucose POC Glucose 149 H Calcium Magnesium Total Bilirubin AST ALT Alkaline Phosphatase Troponin I NT-Pro-B Natriuret Pep Total Protein Albumin Globulin Albumin/Globulin Ratio Lipase Medications Administered Current Inpatient Medications Aspir[facility] ([facility]) [facility] [place] Stop: 03/31/19 09:28 Last Admin: 03/01/19 11:22 Dose: 81 mg Documented by: Atorvastatin Calcium (Lipitor) 80 mg PO [facility] Stop: 03/31/19 20:59 Clopidogrel Bisulfate (Plavix) 75 mg PO HS [facility] Stop: 03/31/19 20:59 Dextrose (Dextrose 50%) 25 - 50 ml IV UD PRN; Protocol PRN Reason: Hypoglycemia Protocol Stop: 03/31/19 09:28 Donepezil HCl (Aricept) 10 mg PO HS [facility] Stop: 03/31/19 20:59 Gabapentin (Neurontin) 600 mg PO TID [facility] Stop: 03/31/19 09:28 Last Admin: 03/01/19 11:22 Dose: 600 mg Documented by: Glucagon (Glucagen) 1 mg SQ UD PRN; Protocol PRN Reason: Hypoglycemia Protocol Stop: 03/31/19 09:28 Glucose (Glucose 40%) 15 - 30 gm PO UD PRN; Protocol PRN Reason: Hypoglycemia Protocol Stop: 03/31/19 09:28 Glucose (Dex4 Glucose) 4 - 8 tabs PO UD PRN; Protocol PRN Reason: Hypoglycemia Protocol Stop: 03/31/19 09:28 Heparin Sodium/Dextrose (Heparin Sodium/Dextrose) 25,000 units in 500 mls @ 27 mls/hr IV .[id number] [facility]; Protocol Stop: 03/31/19 11:45 Last Admin: 03/01/19 12:10 Dose: 1,350 units/hr, 27 mls/hr Documented by: Insulin Aspart (Novolog Flexpen) 0 units SC Q6 LYNDA; Protocol Stop: 03/31/19 11:59 Last Admin: 03/01/19 12:12 Dose: Not Given Documented by: Insulin Human NPH (Novolin N Nph) 15 units SC DAILY@2100 LYNDA; Protocol Stop: 03/31/19 20:59 Insulin Human NPH (Novolin N Nph) 20 units SC DAILY@1130 ONE Stop: 03/02/19 11:31 Isosorbide Mononitrate (Imdur Extended Rel) 60 mg PO AMHS [facility] Stop: 03/31/19 09:28 Last Admin: 03/01/19 11:22 Dose: 60 mg Documented by: Lisinopril (Zestril) 5 mg PO [facility] Stop: 03/31/19 20:59 Magnesium Oxide (Mag-Ox) 400 mg PO QAM [facility] Stop: 03/31/19 09:28 Last Admin: 03/01/19 11:24 Dose: 400 mg Documented by: Metoprolol Tartrate (Lopressor) 100 mg PO BID [facility] Stop: 03/31/19 09:28 Last Admin: 03/01/19 11:23 Dose: 100 mg Documented by: Miscellaneous (Carbohydrates For Hypoglycemia) 15 - 30 gm PO UD PRN PRN Reason: Hypoglycemia Treatment Stop: 03/31/19 09:28 Miscellaneous Information (Consult Glycemic Management Pharmacy) 1 ea N/A UD [facility]YN[facility] Stop: 03/31/19 10:59 Nortriptyline HCl (Pamelor) 75 mg PO HS [facility] Stop: 03/31/19 20:59 Pantoprazole Sodium (Protonix) 40 mg PO QAM [facility] Stop: 03/31/19 09:28 Last Admin: 03/01/19 11:22 Dose: 40 mg Documented by:
[2019-03-01 11:37] LABS: Prothrombin Time 10.3 Seconds (9.0-12.0)
[2019-03-01] MEDS ORDERED: HEPARIN IV BOLUS 6,000 UNITS in SYRINGE 0 ML IV ONE (11:45)
[2019-03-01] MEDS ORDERED: Heparin Adult STANDARD Wt-Based Dextrose 5% 25,000 units/500 mL IV SCH (11:46)
[2019-03-01 11:50] LABS: Basophils # (auto) 0.03 K/uL (0-0.2); Basophils % (auto) 0.5 %; Eosinophils # (auto) 0.39 K/uL (0-0.5); Eosinophils % (auto) 6.1 %; Hematocrit (blood only) 37.3 % (42-52); Hemoglobin 11.8 g/dL (14.0-18.0); Immature Granulocytes # (auto) 0.03 K/uL (0.00-0.02); Immature Granulocytes % (auto) 0.5 %; Lymphocytes # (auto) 1.06 K/uL (1.2-3.4); Lymphocytes % (auto) 16.6 %; Mean Corpuscular Volume 94.4 fL (80-100); Mean Platelet Volume 10.3 fL (7.4-10.4); Monocytes # (auto) 0.74 K/uL (0.11-0.59); Monocytes % (auto) 11.6 %; Neutrophils # (auto) 4.12 K/uL (1.4-6.5); Neutrophils % (auto) 64.7 %; Platelet Count 119 K/uL (130-400); RDW Coefficient of Variation 15.4 % (11.5-14.5); RDW Standard Deviation 52.7 fL (36.4-46.3); Red Blood Count 3.95 M/uL (4.7-6.1); White Blood Count 6.37 K/uL (4.8-10.8)
[2019-03-01 12:10] LABS: Mean Corpuscular Hgb Conc 31.6 g/dL (32-36)
[2019-03-01] MEDS: INSULIN ASPART 100 UNITS/ML 3 ML PEN SC SCH ×2 (12:12→17:52)
[2019-03-01] MEDS ORDERED: SODIUM CHLORIDE 0.9% 1000ML 1,000 ML IV SCH (12:30)
--- NOTE | 2019-03-01 13:41 | Discharge Summary ---
Date of Service March 01, 2019 Admission HPI Per Admitting Provider Pt is 73 y/o M with PMH CAD s/p angioplasty RCA in 1988, s/p CABG x 3 in 1997, NSTEMI demand ischemia after spinal surgery in 2012, S/P DWAYNE and angioplasty left circumflex in 2016, chronic angina, PAD, AAA, TIA, HTN, HLD, DM II, tobacco use, VENICE, COPD presented to ER with c/o CP. Patient states last night around 1 AM started with anterior chest pain with associated mild diaphoresis. Chest pain was nonradiating. Denies SOB, dizziness, palpitations, N/V. Patient states took 3 nitroglycerin without relief and then took a fourth nitroglycerin without relief. Reports took 3 baby aspirin. Chest pain continued and he presented to the ER this morning. In the ER patient 1 inch Nitropaste was applied and patient has been chest pain-free since. 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 Patient states chest pain he expe rienced today felt like his prior anginal chest pain. Patient followed up with cardiology-Dr. Ordonez in 01/2019 and was started on HCTZ couple times a week for BLE edema. Patient states this is been helpful at decreasing his BLE edema. Denies any increased edema. Denies fever/chills, N/V/D/C, MARI, dizziness, syncope, vision changes, neck pain, SOB, orthopnea, palpitations, cough, sore throat, choking, otalgia, rhinorrhea, abdominal pain, paresthesias, weakness, rashes, urinary symptoms. History cardiac cath 2017: Patent PFEIFFER-LAD and SVG-right PDA, Left circumflex received DWAYNE proximal lesion and balloon to mid lesion. Admission Exam Per Admitting Provider General: no acute distress, obese, chronic ill appearing Head: normocephalic, atraumatic Eyes: PERRL, EOM's intact, conjunctiva non-injected, anicteric ENT: normal inspection external ears, nose, mucous membranes moist Neck: supple, trachea midline Lungs: clear, no respiratory distress, no wheezing/rhonchi/rales CV: RRR, no murmur, anterior mid chest wall with tenderness to palpation, 1+ pretibial edema Abd: normal BS, soft, non-tender Ext: no cyanosis, no calf tenderness Neuro: A&O x 3, no focal deficits noted, normal affect Skin: warm, dry Principal Diagnosis non-ST segment elevation myocardial infarction; Diabetes mellitus type 2 with fci current use of insulin Discharge Exam General: no acute distress, obese, chronic ill appearing Head: normocephalic, atraumatic Eyes: PERRL, EOM's intact, conjunctiva non-injected, anicteric ENT: normal inspection external ears, nose, mucous membranes moist Neck: supple, trachea midline Lungs: clear, no respiratory distress, no wheezing/rhonchi/rales CV: RRR, no murmur, anterior mid chest wall with tenderness to palpation, 1+ pretibial edema Abd: normal BS, soft, non-tender Ext: no cyanosis, no calf tenderness Neuro: A&O x 3, no focal deficits noted, normal affect Skin: warm, dry Discharge Data Allergies Allergy/AdvReac Type Severity Reaction Status Date / Time fentanyl AdvReac Mild vomiting Verified 03/01/19 06:12 oxycodone AdvReac Mild vomiting Verified 03/01/19 06:12 DARVOCET Allergy Severe NAUSEA Uncoded 03/01/19 06:12 Consultations 03/01/19 09:29 Consult Cardiology- Dr Dee NSTEMI (non-ST elevated myocardial infarction): The patient is currently pain-free. I will start him on heparin in addition to his current medications. His last cardiac catheterization and stent placement in 2017 along with the majority of his cardiac interventions have been done at [facility] in [place]. He will need a repeat cardiac catheterization. The patient is requesting [facility] and I am in agreement. I will make contact and arrange for transfer, most likely in the morning as long as patient remains stable. Ordered Studies Echo report not available CXR: No acute process within the chest. Stable mild cardiomegaly. Short CBC 03/01/19 03/01/19 Range/Units 04:48 11:39 WBC 7.37 6.37 (4.8-10.8) K/uL Hgb 13.0 L 11.8 L (14.0-18.0) g/dL Hct 40.3 L 37.3 L (42-52) % Plt Count 144 119 L (130-400) K/uL BMP 03/01/19 04:48 Sodium 139 Potassium 4.5 Chloride 107 Carbon Dioxide 29 BUN 24 H Creatinine 1.30 Glucose 183 H Calcium 8.2 L Cardiac Enzymes 03/01/19 03/01/19 Range/Units 04:48 09:56 Troponin I 0.015 1.180 H* (0-0.045) ng/ml Liver Function 03/01/19 Range/Units 04:48 Total Bilirubin 0.4 (0.2-1) mg/dl AST 16 (15-37) U/L ALT 21 (12-78) U/L Alkaline Phosphatase 111 (45-117) U/L Albumin 3.6 (3.4-5.0) gm/dl Hospital Course (1) NSTEMI (non-ST elevated myocardial infarction): Hx CAD s/p angioplasty RCA in 1988, s/p CABG x 3 in 1997, NSTEMI demand ischemia after spinal surgery in 2012, S/P DWAYNE and angioplasty left circumflex in 2016; H/O chronic angina Pt presented with nonradiating anterior chest pain with associated mild diaphoresis started 1 AM this morning. Took 4 nitro and 3 baby aspirin at home without relief. Denies shortness of breath, dizziness, nausea, vomiting, palpitations. Presented to ER vitals were stable. 1 inch Nitropaste was placed in ER and patient has been chest pain free since. Troponin: 0.015, EKG no acute ischemic changes noted, CXR: No acute changes Pt continued on Plavix, aspirin, imdur, metoprolol Repeat troponin: 1.18 Pt continues to be CP free Pt started on Heparin IV Cardiology consult - Recommends repeat cardiac catheterization. The patient is requesting [facility]. Arrangements made and Dr Cadena accepting physician (2) PAD (peripheral artery disease): S/P angioplasty of left external iliac and right common iliac stenosis 07/2010; Dr. Brendon Royal at [facility] (3) Diabetes mellitus, type II: A1c: 6.5 on 12/14/18 -Home Actos on hold -Glycemic pharmacist assisting in NPH insulin dosing (4) HTN (hypertension): Stable -PRN HCTZ on hold -Continue Lisinopril, metoprolol (5) HLD (hyperlipidemia): -Continue atorvastatin (6) VENICE (obstructive sleep apnea): -CPAP HS with 2L oxygen (7) GERD (gastroesophageal reflux disease): -Continue PPI (8) Tobacco use: Currently smoking 4 cigarettes a day -Smoking cessation encouraged -Denies nicotine patch (9) Chronic back pain: On medical marijuana -Continue gabapentin DVT Prophylaxis -Heparin IV Total Time Total Time Spent Total Time Spent (In Minutes): 40 minutes Total Time Includes: Examination of the Patient, Discharge Planning, Medication Reconciliation and Communication With Other Providers Discharge Plan Discharge Items Patient Disposition: Transfer Acute Care Hospital Reason For Visit: cp Discharge Diagnosis: non-ST segment elevation myocardial infarction; 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 Patient currently on IV heparin drip. Patient's care was discussed by sealer sander Dr. Dee to the accepting cardiology physician Dr. Mckinley Cadena with possible plans for cardiac catheterization Prescriptions: Continued atorvastatin 80 mg Tablet 80 mg PO HS RF: 0 clopidogrel 75 mg Tablet 75 mg PO HS RF: 0 pantoprazole 40 mg Tablet,Delayed Release (Dr/Ec) 40 mg PO QAM RF: 0 aspirin [Aspirin Childrens] 81 mg Tablet,Chewable 81 mg PO QAM RF: 0 magnesium oxide 400 mg magnesium Tablet 400 mg PO QAM RF: 0 metoprolol tartrate 100 mg Tablet 100 mg PO BID RF: 0 donepezil 10 mg Tablet 10 mg PO HS RF: 0 nitroglycerin [Nitrostat] 0.4 mg Tablet, Sublingual 0.4 mg sublingual UD MDD 3 doses in 15 minutes PRN (Reason: Chest Pain) RF: 0 gabapentin 600 mg Tablet 600 mg PO TID RF: 0 isosorbide mononitrate 60 mg Tablet Extended Release 24 Hr 60 mg PO AMHS RF: 0 lisinopril 10 mg Tablet 5 mg PO HS RF: 0 pioglitazone 30 mg Tablet 30 mg PO QAM RF: 0 guaifenesin [Mucinex] 600 mg Tablet Extended Release 12hr 600 mg PO Q12H PRN (Reason: cough and congestion) RF: 0 nortriptyline 75 mg Capsule 75 mg PO HS RF: 0 Novolin R Regular U-100 Insuln 100 unit/mL solution 10 unit subcut .WITH LUNCH RF: 0 Novolin R Regular U-100 Insuln 100 unit/mL solution 15 unit subcut .WITH DINNER RF: 0 Novolin R Regular U-100 Insuln 100 unit/mL solution 15 unit subcut .WITH BREAKFAST RF: 0 Novolin N NPH U-100 Insulin 100 unit/mL suspension 36 unit subcut .@ NOON DAILY RF: 0 Novolin N NPH U-100 Insulin 100 unit/mL suspension 25 unit subcut .@ MIDNIGHT DAILY RF: 0 acetaminophen [Tylenol Extra Strength] 500 mg Tablet 1,000 mg PO BID PRN (Reason: Pain) RF: 0 hydrochlorothiazide 12.5 mg Tablet 12.5 mg PO 3XWK PRN (Reason: Unknown) RF: 0 Discontinued Medical Marijuana 1 - 3 drp PO UD RF: 0 Stand-Alone Forms: Call Back Authorization, [facility] Discharge Orders: Discharge Order (Routine); Ordered 03/01/19 Ordered By: Nick Peralta Admission Data Admit Date/Time: 03/01/19 08:32 Attending Provider: Nick Peralta Admit Provider: Nick Peralta Primary Care Provider: Mckinley iWlkes Other Providers: Kanu Dee ; Jose Kessler Service: Telemetry Medical
[2019-03-01] MEDS ORDERED: HEPARIN SOD 5,000 UNIT/0.5 ML VIAL SQ SCH (14:00)
--- NOTE | 2019-03-01 14:03 | Pharmacy Report ---
Pharmacy Glycemic Short Note 2 - Date of Service March 01, 2019 - Glycemic Short BSG Results (Last 24 hours): 03/01/19 03/01/19 04:48 11:52 Glucose 183 H POC Glucose 149 H OUTPATIENT ANTIDIABETIC REGIMEN: * NPH 36 units w/ breakfast (he eats breakfast ~noontime daily) + 25 units at midnight (~12 hours after breakfast NPH dose) * Regular insulin 15 units w/ breakfast + 15 units with dinner; if patient eats a lunch he will also take 10 units with lunch however he rarely does so * A1c = ? ASSESSMENT: * Type 2 diabetic admitted with chest pain. * Uncertain level of glycemic control prior to admission - will check A1c * Will initiate insulin regimen based upon home insulin regimen which typically provides ~76-86 units of insulin per day * Patient does use NPH for his basal needs, will attempt to utilize basal insulin while admitted. Pt is NPO thus will reduce NPH dose to 70% of outpt dose as this insulin does provide some "prandial" needs due to it's peak. * Novolog doses will be based upon out-pt total daily dosage * Patient may be transferred to [facility] this evening? PLAN FOR INPATIENT GLYCEMIC CONTROL: * Basal insulin * NPH units SQ 20 units w/ breakfast + 15 units w/ dinner while on a hospital schedule * Bolus insulin * NovoLog per scale ACHS or Q6hrs while NPO * Goal Range: Low 110 mg/dL - High 140 mg/dL * Correction Factor: 18mg/dL/unit * Nutritional / Prandial insulin per carb ratio of 1 unit per 6 grams CHO consumed PLAN FOR DISCHARGE: * to be determined; A1c is pending
[2019-03-01 18:53] LABS: Partial Thromboplastin Ratio 4.7
[2019-03-01 18:55] LABS: Partial Thromboplastin Time 127.3 Seconds (21.0-31.0)
[2019-03-01] MEDS ORDERED: CLOPIDOGREL BISULFATE 75 MG TAB PO SCH (21:00)
[2019-03-01] MEDS ORDERED: ATORVASTATIN 40 MG TAB PO SCH (21:00)
[2019-03-01] MEDS ORDERED: LISINOPRIL 10 MG TAB PO SCH (21:00)
[2019-03-01] MEDS ORDERED: NORTRIPTYLINE HCL 25 MG CAP PO SCH (21:00)
[2019-03-01] MEDS ORDERED: INSULIN HUMAN NPH SC SCH (21:00)
[2019-03-01] MEDS ORDERED: DONEPEZIL HCL 10 MG TAB PO SCH (21:00)
[2019-03-02] MEDS ORDERED: INSULIN HUMAN NPH SC ONE (11:30)
== END 2019-03-01 20:27 | disposition short-term general hospital (02) ==
LOC: 2N 04:29 → ED 04:29 → 2N 09:18

== ENCOUNTER 2021-06-23 15:07 | Inpatient (IN) ==
--- NOTE | 2021-06-23 15:44 | XRay Report ---
XR chest 1V portable HISTORY: Shortness of breath. COMPARISON: Chest 03/01/2019. FINDINGS: No pneumothorax. No pleural effusions. There are low lung volumes. The cardiac silhouette r emains enlarged. There are poststernotomy changes. Calcifications again noted within the aortic knob. There slight progression of the perihilar interstitial/vascular thickening consistent with mild michael estive change. IMPRESSION: Slight progression of the mild central pulmonary vascular congestion without overt edema. Stable card iomegaly. ACT 112: Negative or not required by law. Electronically signed by: Norberto Chan M.D. 06/23/2021 3:42 PM
--- NOTE | 2021-06-23 15:57 | Emergency Department Note ---
Impression & Plan Breath shortness, New onset atrial flutter ED Provider Note NAME: ALIYAH GUARDADO AGE: 75 SEX: M : 1945 ARRIVES VIA: Walk-In INFORMANT: Patient ED PROVIDER(S): Nestor Stern DO CHIEF COMPLAINT: shortness of breath HPI: Patient is a 75-year-old male who presents to the ER for shortness of breath which has been present for the past 4 to 5 days. It has been getting gradually worse.Shortness of breath is worse with movement and does improve with rest. He does not think it changes with lying flat. He denies any chest pain, cough, runny nose or sore throat. No belly pain, nausea, vomiting, or diarrhea. No dysuria, urgency, or frequency. He was seen by his PCP and referred over for new onset a flutter. ROS: See above HPI for pertinent positives & negatives. A total of 10 systems reviewed and were otherwise negative. PAST MEDICAL HISTORY:See Below PAST SURGICAL HISTORY:See Below FAMILY HISTORY:See Below SOCIAL HISTORY:See Below HOME MEDICATIONS:See Below ALLERGIES:See Below VITALS:See Below PHYSICAL EXAMINATION: GENERAL: Sitting up in bed, alert, Chronically ill-appearing, disheveled EYE EXAM: normal conjunctiva. OROPHARYNX: Mask in place NECK: supple, no nuchal rigidity, no adenopathy, non-tender LUNGS: Clear to auscultation. Normal chest wall mechanics HEART: Irregularly irregular, S1 normal and S2 normal ABDOMEN: abdomen soft, non-tender, normo-active bowel sounds, no masses, no rebound or guarding. UPPER EXTREMITIES: upper extremities are grossly normal. LOWER EXTREMITIES: +edema in B/L LE NEURO EXAM: Normal sensorium, cranial nerves II-XII grossly intact, normal speech, no gross weakness of arms, no gross weakness of legs. MEDICAL DECISION MAKING: Patient is a 75-year-old male who presents the ER for Shortness of breath new onset atrial flutter with a variable block. IV was established blood work was obtained. Labs showed no significant leukocytosis or anemia. INR was unremarkable. BMP along with LFTs bilirubin are negative. Troponin was negative. Covid was negative.Chest x-ray with some mild vascular congestion. EKG did show atrial flutter with a variable block. Patient was rate controlled. Was slightly hypoxic in triage at 80%. Patient was Discussed with hospitalist for further evaluation. Triage Nursing notes reviewed. Limited review of prior medical records performed Vital Signs: reviewed and remarkable for HTN Differential diagnosis: Differential diagnoses includes but is not limited to acute coronary syndrome, myocardial infarction, pericarditis, pulmonary embolus, aortic dissection, pneumonia, pneumothorax, musculoskeletal, shingles, esophageal. ER treatment provided: See below Diagnostics interpreted by me: ECG: Aflutter rate of 70 Left axis No PVCs QTC 442 Cardiac Monitoring: An order was placed for continuous cardiac monitoring. The monitor shows a rate of 70 with aflutter rhythm. Laboratory studies: As stated above and show below. Imaging studies: Chest x-ray with vascular congestion bilaterally Consultation(s): Discussed hospice for further evaluation Procedures: none Critical Care: None Past Med/Surg History Medical History (Updated 06/23/21 @ 19:16 by Nestor Stern DO) AAA (abdominal aortic aneurysm) Angina pectoris CAD (coronary artery disease) s/p angioplasty RCA in 1988, s/p CABG x 3 in 1997; NSTEMI demand ischemia after spinal surgery in 2012; S/P DWAYNE and angioplasty left circumflex in 2017 Chronic back pain COPD (chronic obstructive pulmonary disease) Diabetes Diabetes mellitus, type II GERD (gastroesophageal reflux disease) HLD (hyperlipidemia) HTN (hypertension) 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 Brendon Royal at [facility] Surgical History (Updated 03/01/19 @ 12:50 by Kanu Dee DO) H/O angioplasty History of cardiac cath History of cataract surgery S/P triple vessel bypass Family History Other Diabetes Heart disease Stroke Social History Smoking Status: Current every day smoker Cigarettes Per Day: 2; Second Hand Exposure: No; Do You Dip or Chew Tobacco: No; Tobacco Cessation Education Requested by Patient: No Hx Alcohol Use: No Hx Substance Use: Yes Substance Use Type Other:: Medical marijuana/RSO Gummies Preferred Language: Korean Communication Ability: Effective 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 Beliefs That Will Affect Care: None Current Living Situation: Spouse Current Living Situation Comment: ranch home Other Information That Helps Us Care for You: No Feels Safe at Home: Yes Safety Concerns: Feels Safe At This Time Assistive Devices: CPAP, Glasses and Oxygen - Continuous Allergies Allergies Allergy/AdvReac Type Severity Reaction Status Date / Time fentanyl AdvReac Mild vomiting Verified 06/23/21 16:29 oxycodone AdvReac Mild vomiting Verified 06/23/21 16:29 propoxyphene AdvReac Mild Nausea - Verified 06/23/21 18:44 Darvocet Home Meds Home Medications Medication Instructions Recorded Confirmed acetaminophen 500 mg tablet 1,000 mg PO BID PRN 03/01/19 06/23/21 (Tylenol Extra Strength) aspirin 81 mg chewable tablet 81 mg PO QAM 03/01/19 06/23/21 (Aspirin Childrens) atorvastatin 80 mg tablet 80 mg PO HS 03/01/19 06/23/21 clopidogrel 75 mg tablet 75 mg PO QAM 03/01/19 06/23/21 donepezil 10 mg tablet (Aricept) 10 mg PO HS 03/01/19 06/23/21 gabapentin 600 mg tablet 600 mg PO BID 03/01/19 06/23/21 guaifenesin 600 mg tablet, 600 mg PO Q12H PRN 03/01/19 06/23/21 extended release 12 hr (Mucinex) hydrochlorothiazide 12.5 mg tablet 12.5 mg PO 3XWK PRN 03/01/19 06/23/21 insulin NPH isoph U-100 human 100 25 unit SUBCUT PM 03/01/19 06/23/21 unit/mL subcutaneous suspension (Novolin N NPH U-100 Insulin isophane) insulin NPH isoph U-100 human 100 36 unit SUBCUT QAM 03/01/19 06/23/21 unit/mL subcutaneous suspension (Novolin N NPH U-100 Insulin isophane) insulin regular human 100 unit/mL 10 unit SUBCUT QDD 03/01/19 06/23/21 injection solution (Novolin R Regular U-100 Insulin) insulin regular human 100 unit/mL 15 unit SUBCUT QAM 03/01/19 06/23/21 injection solution (Novolin R Regular U-100 Insulin) insulin regular human 100 unit/mL 15 unit SUBCUT QDL 03/01/19 06/23/21 injection solution (Novolin R Regular U-100 Insulin) isosorbide mononitrate 60 mg 60 mg PO AMHS 03/01/19 06/23/21 tablet,extended release 24 hr lisinopril 10 mg tablet 5 mg PO HS 03/01/19 06/23/21 magnesium oxide 400 mg PO HS 03/01/19 06/23/21 metoprolol tartrate 100 mg tablet 100 mg PO BID 03/01/19 06/23/21 nitroglycerin 0.4 mg sublingual 0.4 mg SUBLINGUAL UD PRN MDD 3 03/01/19 06/23/21 tablet (Nitrostat) doses in 15 minutes nortriptyline 75 mg capsule 75 mg PO HS 03/01/19 06/23/21 pantoprazole 40 mg tablet,delayed 40 mg PO QAM 03/01/19 06/23/21 release pioglitazone 30 mg tablet (Actos) 30 mg PO QAM 03/01/19 06/23/21 trazodone 100 mg tablet 100 mg PO HS 06/23/21 06/23/21 Results & Data (ED) Vital Signs Vital Signs - 24 hr 06/23/21 15:27 06/23/21 15:46 06/23/21 15:52 Temperature 36.5 C Temperature Source Oral Pulse Rate 61 69 62 Pulse Rate [Apical] 68 Pulse Rate from SpO2 Sensor 60 Pulse Rhythm Irregular Respiratory Rate 20 20 28 H Respiratory Effort / Characteristics Non-Labored Spontaneous Respiratory Depth Normal Blood Pressure 153/75 H Blood Pressure [Right Arm] 168/92 H Blood Pressure Mean 101 Blood Pressure Mean [Right Arm] 117 Blood Pressure Position Sitting Blood Pressure Position [Right Arm] Sitting Pulse Oximetry 88 L 92 94 Oxygen Delivery Method Room Air Room Air Oxygen Flow Rate Sepsis Recent Fever Within 48 Hours No Sepsis New/Unexplained Change in Mental Status N/A Sepsis Action Taken by Nursing No Action Required 06/23/21 16:00 06/23/21 16:10 06/23/21 16:20 Temperature Temperature Source Pulse Rate 66 67 67 Pulse Rate [Apical] Pulse Rate from SpO2 Sensor 61 75 72 Pulse Rhythm Respiratory Rate 23 19 23 Respiratory Effort / Characteristics Respiratory Depth Blood Pressure Blood Pressure [Right Arm] Blood Pressure Mean Blood Pressure Mean [Right Arm] Blood Pressure Position Blood Pressure Position [Right Arm] Pulse Oximetry 93 92 87 L Oxygen Delivery Method Oxygen Flow Rate Sepsis Recent Fever Within 48 Hours Sepsis New/Unexplained Change in Mental Status Sepsis Action Taken by Nursing 06/23/21 16:30 06/23/21 16:40 06/23/21 18:52 Temperature Temperature Source Pulse Rate 66 63 Pulse Rate [Apical] 69 Pulse Rate from SpO2 Sensor 69 63 Pulse Rhythm Respiratory Rate 18 26 H 20 Respiratory Effort / Characteristics Respiratory Depth Blood Pressure Blood Pressure [Right Arm] Blood Pressure Mean Blood Pressure Mean [Right Arm] Blood Pressure Position Blood Pressure Position [Right Arm] Pulse Oximetry 84 L 97 96 Oxygen Delivery Method Nasal Cannula Nasal Cannula Oxygen Flow Rate 2 2 Sepsis Recent Fever Within 48 Hours Sepsis New/Unexplained Change in Mental Status Sepsis Action Taken by Nursing 06/23/21 19:03 Temperature 36.8 C Temperature Source Oral Pulse Rate Pulse Rate [Apical] 84 Pulse Rate from SpO2 Sensor Pulse Rhythm Respiratory Rate 21 Respiratory Effort / Characteristics Non-Labored Respiratory Depth Normal Blood Pressure Blood Pressure [Right Arm] 146/104 H Blood Pressure Mean Blood Pressure Mean [Right Arm] 118 Blood Pressure Position Blood Pressure Position [Right Arm] Pulse Oximetry 96 Oxygen Delivery Method Room Air Oxygen Flow Rate Sepsis Recent Fever Within 48 Hours Sepsis New/Unexplained Change in Mental Status Sepsis Action Taken by Nursing Laboratory Data Result diagrams: 06/23/21 15:56 06/23/21 15:56 Lab Results 06/23/21 06/23/21 06/23/21 Range/Units 15:56 15:56 15:56 WBC 6.49 (4.8-10.8) K/uL RBC 4.18 L (4.7-6.1) M/uL Hgb 12.2 L (14.0-18.0) g/dL Hct 38.7 L (42-52) % MCV 92.6 (80-100) fL MCH 29.2 (25-34) pg MCHC 31.5 L (32-36) g/dL RDW Std Deviation 55.3 H (36.4-46.3) fL RDW Coeff of Geremias 16.4 H (11.5-14.5) % Plt Count 157 (130-400) K/uL MPV 10.5 H (7.4-10.4) fL Immature Gran % (Auto) 0.2 % Neut % (Auto) 71.5 % Lymph % (Auto) 12.0 % [place] % (Auto) 11.6 % Eos % (Auto) 4.2 % Baso % (Auto) 0.5 % Neut # (Auto) 4.65 (1.4-6.5) K/uL Lymph # (Auto) 0.78 L (1.2-3.4) K/uL [place] # (Auto) 0.75 H (0.11-0.59) K/uL Eos # (Auto) 0.27 (0-0.5) K/uL Baso # (Auto) 0.03 (0-0.2) K/uL Immature Gran # (Auto) 0.01 (0.00-0.02) K/uL PT 10.3 (9.0-12.0) Seconds INR 1.0 (0.9-1.1) APTT 26.3 (21.0-31.0) Seconds PTT Ratio 1.0 Sodium 137 (136-145) mmol/L Potassium 4.4 (3.5-5.1) mmol/L Chloride 107 (98-107) mmol/L Carbon Dioxide 24 (21-32) mmol/L Anion Gap 6.0 (3-11) BUN 17 (7-18) mg/dl Creatinine 1.14 (0.6-1.4) mg/dl Est Cr Clr Drug Dosing 60.4 ml/min Est GFR ( Amer) 72.0 ml/min Est GFR (Non-Af Amer) 62.1 ml/min BUN/Creatinine Ratio 15.0 (10-20) Glucose 81 (70-99) mg/dl Calcium 8.7 (8.5-10.1) mg/dl Magnesium 2.3 (1.8-2.4) mg/dl Total Bilirubin 0.7 (0.2-1) mg/dl AST 12 L (15-37) U/L ALT 17 (12-78) U/L Alkaline Phosphatase 88 (45-117) U/L Troponin I < 0.015 (0-0.045) ng/ml Total Protein 6.8 (6.4-8.2) gm/dl Albumin 3.1 L (3.4-5.0) gm/dl Globulin 3.7 (2.5-4.0) gm/dl Albumin/Globulin Ratio 0.8 L (0.9-2) COVID-19 Eval Order SARS-CoV-2 (PCR) (Negative) 06/23/21 06/23/21 Range/Units 16:37 16:37 WBC (4.8-10.8) K/uL RBC (4.7-6.1) M/uL Hgb (14.0-18.0) g/dL Hct (42-52) % MCV (80-100) fL MCH (25-34) pg MCHC (32-36) g/dL RDW Std Deviation (36.4-46.3) fL RDW Coeff of Geremias (11.5-14.5) % Plt Count (130-400) K/uL MPV (7.4-10.4) fL Immature Gran % (Auto) % Neut % (Auto) % Lymph % (Auto) % [place] % (Auto) % Eos % (Auto) % Baso % (Auto) % Neut # (Auto) (1.4-6.5) K/uL Lymph # (Auto) (1.2-3.4) K/uL [place] # (Auto) (0.11-0.59) K/uL Eos # (Auto) (0-0.5) K/uL Baso # (Auto) (0-0.2) K/uL Immature Gran # (Auto) (0.00-0.02) K/uL PT (9.0-12.0) Seconds INR (0.9-1.1) APTT (21.0-31.0) Seconds PTT Ratio Sodium (136-145) mmol/L Potassium (3.5-5.1) mmol/L Chloride (98-107) mmol/L Carbon Dioxide (21-32) mmol/L Anion Gap (3-11) BUN (7-18) mg/dl Creatinine (0.6-1.4) mg/dl Est Cr Clr Drug Dosing ml/min Est GFR ( Amer) ml/min Est GFR (Non-Af Amer) ml/min BUN/Creatinine Ratio (10-20) Glucose (70-99) mg/dl Calcium (8.5-10.1) mg/dl Magnesium (1.8-2.4) mg/dl Total Bilirubin (0.2-1) mg/dl AST (15-37) U/L ALT (12-78) U/L Alkaline Phosphatase (45-117) U/L Troponin I (0-0.045) ng/ml Total Protein (6.4-8.2) gm/dl Albumin (3.4-5.0) gm/dl Globulin (2.5-4.0) gm/dl Albumin/Globulin Ratio (0.9-2) COVID-19 Eval Order Covid19 at [facility] SARS-CoV-2 (PCR) NEGATIVE (Negative) Imaging Data Radiologist's Impression: Chest X-Ray 06/23/21 15:31 XR chest 1V portable HISTORY: Shortness of breath. COMPARISON: Chest 03/01/2019. FINDINGS: No pneumothorax. No pleural effusions. There are low lung volumes. The cardiac silhouette remains enlarged. There are poststernotomy changes. Calcifications again noted within the aortic knob. There slight progression of the perihilar interstitial/vascular thickening consistent with mild congestive change. IMPRESSION: Slight progression of the mild central pulmonary vascular congestion without overt edema. Stable cardiomegaly. ACT 112: Negative or not required by law. Electronically signed by: Norberto Chan M.D. 06/23/2021 3:42 PM Discharge Plan Visit Data Chief Complaint: Shortness of Breath/Dyspnea Stated Complaint: SOB,CARDIAC ISSUES, REF BY DOC ED Provider: Nestor Stenr Discharge Problem: Breath shortness, New onset atrial flutter Forms Stand Alone Forms: My [facility] Prescriptions Prescriptions: No Action atorvastatin 80 mg Tablet 80 mg PO HS RF: 0 clopidogrel 75 mg Tablet 75 mg PO QAM RF: 0 pantoprazole 40 mg Tablet,Delayed Release (Dr/Ec) 40 mg PO QAM RF: 0 aspirin [Aspirin Childrens] 81 mg Tablet,Chewable 81 mg PO QAM RF: 0 magnesium oxide 400 mg magnesium Tablet 400 mg PO HS RF: 0 metoprolol tartrate 100 mg Tablet 100 mg PO BID RF: 0 donepezil [Aricept] 10 mg Tablet 10 mg PO HS RF: 0 nitroglycerin [Nitrostat] 0.4 mg Tablet, Sublingual 0.4 mg sublingual UD MDD 3 doses in 15 minutes PRN (Reason: Chest Pain) RF: 0 gabapentin 600 mg Tablet 600 mg PO BID RF: 0 isosorbide mononitrate 60 mg Tablet Extended Release 24 Hr 60 mg PO AMHS RF: 0 lisinopril 10 mg Tablet 5 mg PO HS RF: 0 pioglitazone [Actos] 30 mg Tablet 30 mg PO QAM RF: 0 guaifenesin [Mucinex] 600 mg Tablet Extended Release 12hr 600 mg PO Q12H PRN (Reason: cough and congestion) RF: 0 nortriptyline 75 mg Capsule 75 mg PO HS RF: 0 Novolin R Regular U-100 Insuln 100 unit/mL solution 10 unit subcut QDD RF: 0 Novolin R Regular U-100 Insuln 100 unit/mL solution 15 unit subcut QAM RF: 0 Novolin R Regular U-100 Insuln 100 unit/mL solution 15 unit subcut QDL RF: 0 Novolin N NPH U-100 Insulin 100 unit/mL suspension 36 unit subcut QAM RF: 0 Novolin N NPH U-100 Insulin 100 unit/mL suspension 25 unit subcut PM RF: 0 acetaminophen [Tylenol Extra Strength] 500 mg Tablet 1,000 mg PO BID PRN (Reason: Pain) RF: 0 hydrochlorothiazide 12.5 mg Tablet 12.5 mg PO 3XWK PRN (Reason: Unknown) RF: 0 trazodone 100 mg tablet 100 mg PO HS RF: 0 Referrals Referrals: Mckinley Wilkes MD [Physician] -
[2021-06-23 16:24] LABS: Alanine Aminotransferase 17 U/L (12-78); Albumin Level 3.1 gm/dl (3.4-5.0); Aspartate Aminotransferase 12 U/L (15-37); Blood Urea Nitrogen 17 mg/dl (7-18); Calcium 8.7 mg/dl (8.5-10.1); Carbon Dioxide 24 mmol/L (21-32); Chloride 107 mmol/L (98-107); Creatinine Clr Calc Pharmacy 60.4 ml/min; Est GFR (Non-African American) 62.1 ml/min; Glucose 81 mg/dl (70-99); Magnesium 2.3 mg/dl (1.8-2.4); Potassium 4.4 mmol/L (3.5-5.1); Sodium 137 mmol/L (136-145)
[2021-06-23 16:26] LABS: Partial Thromboplastin Time 26.3 Seconds (21.0-31.0); Prothrombin Time 10.3 Seconds (9.0-12.0)
[2021-06-23 16:28] LABS: Basophils # (auto) 0.03 K/uL (0-0.2); Basophils % (auto) 0.5 %; Eosinophils # (auto) 0.27 K/uL (0-0.5); Eosinophils % (auto) 4.2 %; Hematocrit (blood only) 38.7 % (42-52); Hemoglobin 12.2 g/dL (14.0-18.0); Immature Granulocytes # (auto) 0.01 K/uL (0.00-0.02); Immature Granulocytes % (auto) 0.2 %; Lymphocytes # (auto) 0.78 K/uL (1.2-3.4); Mean Corpuscular Hemoglobin 29.2 pg (25-34); Mean Corpuscular Hgb Conc 31.5 g/dL (32-36); Mean Corpuscular Volume 92.6 fL (80-100); Mean Platelet Volume 10.5 fL (7.4-10.4); Monocytes # (auto) 0.75 K/uL (0.11-0.59); Monocytes % (auto) 11.6 %; Neutrophils # (auto) 4.65 K/uL (1.4-6.5); Neutrophils % (auto) 71.5 %; Platelet Count 157 K/uL (130-400); RDW Coefficient of Variation 16.4 % (11.5-14.5); RDW Standard Deviation 55.3 fL (36.4-46.3); Red Blood Count 4.18 M/uL (4.7-6.1); White Blood Count 6.49 K/uL (4.8-10.8)
[2021-06-23 16:29] LABS: Albumin Globulin Ratio 0.8 (0.9-2); Alkaline Phosphatase 88 U/L (45-117); Bilirubin,Total 0.7 mg/dl (0.2-1); Globulin 3.7 gm/dl (2.5-4.0); Total Protein 6.8 gm/dl (6.4-8.2); Troponin I < 0.015 ng/ml (0-0.045)
--- NOTE | 2021-06-23 17:33 | Electrocardiogram Report ---
Test Reason : Blood Pressure : / mmHG Vent. Rate : 070 BPM Atrial Rate : 234 BPM P-R Int : 000 ms QRS Dur : 086 ms QT Int : 410 ms P-R-T Axes : 082 -60 048 degrees QTc Int : 442 ms Atrial flutter with variable A-V block with premature ventricular or aberrantly conducted complexes Left axis deviation Abnormal ECG When compared with ECG of 01-MAR-2019 04:39, Atrial flutter has replaced Sinus rhythm Confirmed by Jonathan Coates ([id number]) on 06/23/2021 5:33:21 PM Referred By: ED Confirmed By:Christian Coates
[2021-06-23] MEDS ORDERED: Heparin IV Adult Wt-Based Low-Dose *NO* Bolus Protocol IV SCH (18:35)
--- NOTE | 2021-06-23 18:39 | History & Physical Report ---
Date of Service June 23, 2021 Assessment & Plan (1) CHF (congestive heart failure): Plan: Exertional shortness of breath for the last 7 days Chest x-ray evidence of pulmonary congestion and new onset a flutter with variable block Has 1+ edema bilaterally Will give 40 mg Lasix IV x1 and decide further Lasix tomorrow We will get cardiology evaluation (2) Atrial flutter: Plan: Noted to be a flutter with variable block and the rate is controlled Started on low-dose heparin without bolus after discussion pros and cons with heparin We will get serial cardiac enzymes to rule out any ACS Continue beta-ning Echo cardio gram and cardiology evaluation (3) CAD (coronary artery disease): Plan: History of CAD and status post CABG No acute chest pain (4) COPD (chronic obstructive pulmonary disease): Plan: History of COPD and sleep apnea Has been using oxygen at nighttime (5) Diabetes mellitus, type II: Plan: We will put him on sliding scale insulin coverage (6) VENICE (obstructive sleep apnea): Plan: Uses CPAP/BiPAP at night with oxygen Continue BiPAP with home setting (7) PAD (peripheral artery disease): Plan: No acute symptoms (8) AAA (abdominal aortic aneurysm): Plan: Denies any abdominal pain (9) HLD (hyperlipidemia): Plan: Continue statin (10) HTN (hypertension): Plan: Blood pressure remains on the upper side Continue home blood pressure medication (11) GERD (gastroesophageal reflux disease): Plan: Continue PPI DVT prophylaxis Intravenous heparin CODE STATUS Full History of Present Illness Chief Complaint: Shortness of breath with exertion for the last 7 days Primary Care Provider: Zachariah Duarte DO He is a 75 years old male with significant complicated past medical history including CAD status post CABG, abdominal aortic aneurysm, peripheral artery disease, VENICE on CPAP/BiPAP with oxygen at home, hypertension, COPD, type 2 diabetes, hyperlipidemia and history of tobacco abuse apparently has been complaining of exertional shortness of breath for the last 1 week. He denies any fever and/or chills associated with it and denies any cough. No palpitation or chest pain. He has not gained any weight but has minimal bilateral leg swelling. He denies any nausea and or vomiting or any problem with urine and or bowel habit. He was noted to be hypoxic on arrival and chest x-ray did show pulmonary congestion without overt pulmonary edema and also he was noted to have a flutter with controlled rate. He was admitted to telemetry unit for continuation of care and heparin was administered after discussion with him the risk and benefit. Allergies Allergy/AdvReac Type Severity Reaction Status Date / Time fentanyl AdvReac Mild vomiting Verified 06/23/21 16:29 oxycodone AdvReac Mild vomiting Verified 06/23/21 16:29 propoxyphene AdvReac Mild Nausea - Verified 06/23/21 18:44 Darvocet Home Medications Medication Instructions Recorded Confirmed Type acetaminophen 500 mg tablet 1,000 mg PO BID PRN 03/01/19 06/23/21 History (Tylenol Extra Strength) aspirin 81 mg chewable tablet 81 mg PO QAM 03/01/19 06/23/21 History (Aspirin Childrens) atorvastatin 80 mg tablet 80 mg PO HS 03/01/19 06/23/21 History clopidogrel 75 mg tablet 75 mg PO QAM 03/01/19 06/23/21 History donepezil 10 mg tablet (Aricept) 10 mg PO HS 03/01/19 06/23/21 History gabapentin 600 mg tablet 600 mg PO BID 03/01/19 06/23/21 History guaifenesin 600 mg tablet, 600 mg PO Q12H PRN 03/01/19 06/23/21 History extended release 12 hr (Mucinex) hydrochlorothiazide 12.5 mg tablet 12.5 mg PO 3XWK PRN 03/01/19 06/23/21 History insulin NPH isoph U-100 human 100 25 unit SUBCUT PM 03/01/19 06/23/21 History unit/mL subcutaneous suspension (Novolin N NPH U-100 Insulin isophane) insulin NPH isoph U-100 human 100 36 unit SUBCUT QAM 03/01/19 06/23/21 History unit/mL subcutaneous suspension (Novolin N NPH U-100 Insulin isophane) insulin regular human 100 unit/mL 10 unit SUBCUT QDD 03/01/19 06/23/21 History injection solution (Novolin R Regular U-100 Insulin) insulin regular human 100 unit/mL 15 unit SUBCUT QAM 03/01/19 06/23/21 History injection solution (Novolin R Regular U-100 Insulin) insulin regular human 100 unit/mL 15 unit SUBCUT QDL 03/01/19 06/23/21 History injection solution (Novolin R Regular U-100 Insulin) isosorbide mononitrate 60 mg 60 mg PO AMHS 03/01/19 06/23/21 History tablet,extended release 24 hr lisinopril 10 mg tablet 5 mg PO HS 03/01/19 06/23/21 History magnesium oxide 400 mg PO HS 03/01/19 06/23/21 History metoprolol tartrate 100 mg tablet 100 mg PO BID 03/01/19 06/23/21 History nitroglycerin 0.4 mg sublingual 0.4 mg SUBLINGUAL UD PRN MDD 3 03/01/19 06/23/21 History tablet (Nitrostat) doses in 15 minutes nortriptyline 75 mg capsule 75 mg PO HS 03/01/19 06/23/21 History pantoprazole 40 mg tablet,delayed 40 mg PO QAM 03/01/19 06/23/21 History release pioglitazone 30 mg tablet (Actos) 30 mg PO QAM 03/01/19 06/23/21 History trazodone 100 mg tablet 100 mg PO HS 06/23/21 06/23/21 History Past Med/Surg History Medical History (Updated 06/23/21 @ 19:16 by Nestor Stern DO) AAA (abdominal aortic aneurysm) Angina pectoris CAD (coronary artery disease) s/p angioplasty RCA in 1988, s/p CABG x 3 in 1997; NSTEMI demand ischemia after spinal surgery in 2012; S/P DWAYNE and angioplasty left circumflex in 2016 Chronic back pain COPD (chronic obstructive pulmonary disease) Diabetes Diabetes mellitus, type II GERD (gastroesophageal reflux disease) HLD (hyperlipidemia) HTN (hypertension) 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 Required: No Beliefs That Will Affect Care: None Current Living Situation: Spouse Current Living Situation Comment: ranch home Other Information That Helps Us Care for You: No Feels Safe at Home: Yes Safety Concerns: Feels Safe At This Time Assistive Devices: CPAP, Glasses and Oxygen - Continuous Review of Systems Review of Systems: All systems reviewed & are unremarkable except as noted in HPI & below Respiratory: Shortness of breath on exertion Physical Exam Physical Exam: Lying in bed with minimal shortness of breath Constitutional: well developed, well nourished, + ill appearing and + obese Eyes: PERRL, conjunctivae normal, anicteric sclerae ENMT: external ear and nose normal, oropharynx normal Neck: trachea midline, no thyromegaly Respiratory: + respiratory distress (Minimal shortness of breath at rest); no cough Auscultation: + diminished lung sounds and + crackles (Minimal crackles at the bases) Cardiovascular: Rate/Rhythm: + irregularly irregular; not tachycardic Heart Sounds: normal S1, normal S2 and + murmur (2/6 ESM over precordium) Extremities: + edema (1+ edema bilaterally) Gastrointestinal (Abdomen): Inspection/Auscultation: normal bowel sounds; abdomen not distended Percussion/Palpation: abdomen soft; abdomen nontender Musculoskeletal: No acute arthritis in any joint Neurologic: Alert, awake and oriented x3. Generally weak but no focal sensory or motor deficit appreciated Psychiatric: A+Ox3, euthymic affect Lymphatic: no cervical or axillary lymphadenopathy Results & Data Results & Data ([facility]) Vital Signs (Past 12 Hours) Vital Signs Temp Pulse Pulse Resp BP BP Pulse Ox 06/23/21 16:40 63 26 H 97 06/23/21 16:30 66 18 84 L 06/23/21 16:20 67 23 87 L 06/23/21 16:10 67 19 92 06/23/21 16:00 66 23 93 06/23/21 15:52 62 28 H 94 06/23/21 15:46 69 68 20 168/92 H 92 06/23/21 15:27 36.5 C 61 20 153/75 H 88 L Laboratory Results Short CBC 06/23/21 Range/Units 15:56 WBC 6.49 (4.8-10.8) K/uL Hgb 12.2 L (14.0-18.0) g/dL Hct 38.7 L (42-52) % Plt Count 157 (130-400) K/uL BMP 06/23/21 15:56 Sodium 137 Potassium 4.4 Chloride 107 Carbon Dioxide 24 BUN 17 Creatinine 1.14 Glucose 81 Calcium 8.7 Cardiac Enzymes 06/23/21 Range/Units 15:56 Troponin I < 0.015 (0-0.045) ng/ml Liver Function 06/23/21 Range/Units 15:56 Total Bilirubin 0.7 (0.2-1) mg/dl AST 12 L (15-37) U/L ALT 17 (12-78) U/L Alkaline Phosphatase 88 (45-117) U/L Albumin 3.1 L (3.4-5.0) gm/dl Medications Administered Current Inpatient Medications Furosemide (Furosemide 40 Mg/4 Ml Vial) 40 mg IV ONE ONE Stop: 06/23/21 18:34 Heparin Sodium/Dextrose (Heparin Iv Adult Wt-Based Low-Dose *No* Bolus Protocol) 1 ea N/A ONE ONE; Protocol Stop: 06/23/21 18:36 Heparin Sodium/Dextrose (Heparin Sodium/Dextrose) 25,000 units in 500 mls @ 0.02 mls/hr IV .Q24H LYNDA; Protocol Stop: 07/23/21 18:44 Code Status & VTE Plan VTE Prophylaxis Plan VTE Prophylaxis will be ordered: Yes
[2021-06-23] MEDS ORDERED: FUROSEMIDE 40 MG/4 ML VIAL IV ONE (18:45)
[2021-06-23] MEDS: HEPARIN SODIUM/DEXTROSE 25,000 UNITS/500 ML BAG IV SCH (19:12)
[2021-06-23] MEDS ORDERED: PHARMACY GLYCEMIC MGMT CONSULT PRN (20:55)
[2021-06-23] MEDS ORDERED: ACETAMINOPHEN 325 MG TAB PO PRN (20:57)
[2021-06-23] MEDS ORDERED: GLUCAGON FOR INJ 1 MG VIAL SQ PRN (20:57)
[2021-06-23] MEDS ORDERED: POLYETHYLENE (MIRALAX) 17 GM PACK PO PRN (20:57)
[2021-06-23] MEDS ORDERED: DEXTROSE 50% 50 ML SYRINGE IV PRN (20:57)
[2021-06-23] MEDS ORDERED: GLUCOSE 10 TABS/TUBE PO PRN (20:57)
[2021-06-23] MEDS ORDERED: GLUCOSE 40% GEL 15 GM TUBE PO PRN (20:57)
[2021-06-23] MEDS ORDERED: guaiFENesin 600 MG TABCR PO PRN (20:57)
[2021-06-23] MEDS ORDERED: ONDANSETRON INJ 2 MG/ML 2 ML VIAL IV PRN (20:57)
[2021-06-23] MEDS ORDERED: NITROGLYCERIN SL 0.4 MG/TAB TAB SL PRN (20:57)
[2021-06-23] MEDS ORDERED: CARBOHYDRATES FOR HYPOGLYCEMIA PO PRN (20:57)
[2021-06-23] MEDS: GABAPENTIN 600 MG TAB PO SCH (22:38)
[2021-06-23] MEDS: MAGNESIUM OXIDE 400 MG TAB PO SCH (22:38)
[2021-06-23] MEDS: ATORVASTATIN 40 MG TAB PO SCH (22:38)
[2021-06-23] MEDS: lisinopril 5 MG TAB PO SCH (22:38)
[2021-06-23] MEDS: DONEPEZIL HCL 10 MG TAB PO SCH (22:38)
[2021-06-23] MEDS: ISOSORBIDE MONO EXTENDED REL 60 MG TABCR PO SCH (22:38)
[2021-06-23] MEDS: METOPROLOL TARTRATE 100 MG TAB PO SCH (22:39)
[2021-06-23] MEDS: NORTRIPTYLINE HCL 25 MG CAP PO SCH (22:39)
[2021-06-23] MEDS: traZODone HCL 100 MG TAB PO SCH (22:39)
[2021-06-23] MEDS: INSULIN ASPART 100 UNITS/ML 3 ML PEN SC SCH ×2 (22:45→23:39)
--- NOTE | 2021-06-24 00:38 | Pharmacy Report ---
Pharmacy Glycemic Short Note 2 - Date of Service June 24, 2021 - Glycemic Short BSG Results (Last 24 hours): 06/23/21 06/23/21 06/23/21 15:56 22:41 23:38 Glucose 81 POC Glucose 194 H 217 H OUTPATIENT ANTIDIABETIC REGIMEN: * NPH 36 units SC AM + 25 units SC PM * Novolin R 15 units SC with breakfast and lunch, 10 units SC with dinner * HbA1c pending ASSESSMENT: * 75 yo M admitted from outpatient cardiology office today secondary to dyspnea on exertion and abnormal ECG. Outpatient records indicate patient is a type 1 diabetic but our records indicate type 2. Needs confirmed with patient later today. Currently ordered a type 2 diet which may need adjusted. * Plasma BSG was 81 mg/dL upon arrival to ED. No insulin administered and unsure if patient ate in ED. Will utilize NPH and Novolog while inpatient. * POC BSG was 194 mg/dL which increased to 217 mg/dL after receiving 3 units of Novolog. Tightened parameters following midnight dose of Novolog. * No NPH this evening. Will reduce AM NPH by ~25% in case patient needs to have a procedure done in the AM and becomes NPO. PLAN FOR INPATIENT GLYCEMIC CONTROL: * Basal insulin * NPH 25 units SC AM * Needs PM NPH ordered * Bolus insulin * NovoLog per scale ACHS or Q6hrs while NPO * Goal Range: Low 110 mg/dL - High 140 mg/dL * Correction Factor: 15 mg/dL/unit * Nutritional / Prandial insulin per carb ratio of 1 unit per 5 grams CHO consumed PLAN FOR DISCHARGE: * To be determined
[2021-06-24 01:12] LABS: Partial Thromboplastin Ratio 1.6; Partial Thromboplastin Time 43.3 Seconds (21.0-31.0)
[2021-06-24] MEDS: INSULIN ASPART 100 UNITS/ML 3 ML PEN SC SCH ×5 (04:30→20:43)
[2021-06-24 07:12] LABS: Hematocrit (blood only) 37.6 % (42-52); Hemoglobin 11.8 g/dL (14.0-18.0); Mean Corpuscular Hemoglobin 28.2 pg (25-34); Mean Corpuscular Hgb Conc 31.4 g/dL (32-36); Mean Platelet Volume 10.6 fL (7.4-10.4); Platelet Count 160 K/uL (130-400); RDW Coefficient of Variation 16.5 % (11.5-14.5); Red Blood Count 4.18 M/uL (4.7-6.1); White Blood Count 6.51 K/uL (4.8-10.8)
[2021-06-24] MEDS ORDERED: INSULIN HUMAN NPH SC SCH ×3 (07:30→16:30)
[2021-06-24 07:34] LABS: Partial Thromboplastin Ratio 2.6
[2021-06-24 07:43] LABS: Partial Thromboplastin Time 67.5 Seconds (21.0-31.0)
[2021-06-24 08:19] LABS: BUN Creatinine Ratio 16.6 (10-20); Blood Urea Nitrogen 18 mg/dl (7-18); Calcium 8.6 mg/dl (8.5-10.1); Carbon Dioxide 26 mmol/L (21-32); Chloride 103 mmol/L (98-107); Est GFR (African American) 78.6 ml/min; Est GFR (Non-African American) 67.8 ml/min; Glucose 133 mg/dl (70-99); Magnesium 2.2 mg/dl (1.8-2.4); Potassium 3.8 mmol/L (3.5-5.1); Sodium 138 mmol/L (136-145); Troponin I < 0.015 ng/ml (0-0.045)
[2021-06-24] MEDS: PANTOprazole 40 MG TAB PO SCH (08:52)
[2021-06-24] MEDS: CLOPIDOGREL BISULFATE 75 MG TAB PO SCH (08:52)
[2021-06-24] MEDS: ASPIRIN 81 MG CHEW PO SCH (08:52)
[2021-06-24] MEDS: ISOSORBIDE MONO EXTENDED REL 60 MG TABCR PO SCH ×2 (08:52→20:57)
[2021-06-24] MEDS: GABAPENTIN 600 MG TAB PO SCH ×2 (08:52→20:57)
[2021-06-24] MEDS: METOPROLOL TARTRATE 100 MG TAB PO SCH ×2 (08:52→20:57)
--- NOTE | 2021-06-24 09:01 | Cardiology Consultation ---
Date of Consultation June 24, 2021 Assessment & Plan (1) New onset atrial flutter: (2) PAD (peripheral artery disease): (3) CAD (coronary artery disease): (4) Dyspnea: Patiet with new onset atrial flutter, controlled rates, likely starting about 5 days ago. He appears euvolemic. BNP is normal. Troponin negative x3 No ischemic changes on his EKG. He has a history of CAD, s/p remote CABG and PCI to vein grafts in 2018 and history of PVD with history of PTCA of the iliac arteries in 2009. He has been maintained on ASA and Plavix. He also has a histor of TIA due to moderate b/l carotid stenosis. He is followed closely by vascular surgery. Given [id number] VASc score of 7, anticoagulation therapy is recommended for this new onset atrial flutter. Heparin initiated. Treatment options for atrial flutter discussed with patient in detail. Given the fact he is symptomatic, will arrange HEAVENLY/CV for likely the morning of 06/25 (patient ate breakfast this morning). Patient NPO after midnight, except meds. Will then likely transition to Eliquis and Plavix and stop ASA. Continue metoprolol tartrate for now. Echo reviewed with preserved LV systolic function, moderate LA enlargement, and no significant valvular disease. He has [employer] and uses [facility], along with [employer] [facility]. One month supply would be approx $24, so likely affordable on discharge. Case discussed with Dr. Joseph. Supervising Physician Co-Signing Physician Notes Supervising Physician Attestation: I have personally performed a history and physical examination on the patient. I agree with the physician janitorial assistant's findings and plan as documented with the following additions. Subjective: Patient feeling comfortable at present. Rate controlled atrial flutter noted. Exam: Irregular rhythm, 1/6 systolic murmur Data: Echocardiogram with preserved LVEF. Moderate left atrial dilatation noted, moderate aortic valve sclerosis without stenosis, mild mitral regurgitation, moderate atherosclerotic plaque in the ascending aorta. Assessment and Plan: Symptomatic atrial flutter -Rate likely controlled due to his longstanding treatment with high-dose metoprolol, utilized for treatment of his chronic angina. -Patient is currently on a heparin infusion. We will transfer him to Eliquis 5 mg twice daily starting tonight at 2100. N.p.o. after midnight for HEAVENLY guided cardioversion. Informed consent was obtained patient agreeable to proceed. Anesthesia consult placed. DVT prophylaxis: Discontinue unfractionated heparin, start Eliquis. Marco Antonio Joseph DO History of Present Illness Reason for Consultation: Atrial flutter; SOB Requesting Physician: Dr. Stafford Attending Physician: Dr. Joseph History of Present Illness Patient is a 75 year old male who is well known to [facility], following with Dr. Ordonez for complex cardiovascular disease. History includes: 1.Long-standing history of coronary artery disease status post remote c oronary intervention with angioplasty to the right coronary artery in 1988. 2.History of coronary bypass grafting in 1997 for a diffuse 3-vessel disease receiving a PFEIFFER graft to the LAD, saphenous vein graft to the circumflex obtuse marginal, and saphenous vein graft to the posterior descending artery. 3.Chronic class II angina pectoris. 4.History of non-ST segment elevation myocardial infarction in the setting of demand based ischemia with associated spinal surgery in August 2012. 5.Chronic obstructive lung disease. 6.History of past TIA. 7.History of atherosclerotic peripheral vascular disease status post PTCA of the left external iliac and right common iliac arteries in July of 2010. 8.Atherosclerotic carotid plaquing. 9.Hyperlipidemia. 10.Long-standing insulin-dependent diabetes mellitus. 11.Chronic obstructive lung disease. 12. Status post coronary intervention, proximal and mid left circumflex on 01/29/2017, receiving drug-eluting stent to proximal lesion, balloon angioplasty to the distal lesion. 13. Non ST segment elevation myocardial infarction with crescendo angina March 01, 2019 with subsequent coronary intervention (at [facility]) with drug-eluting stents x2 to the saphenous vein graft supplying the distal right coronary artery. Distal circumflex and right coronary artery were notably diffusely diseased. PFEIFFER graft patent Patient presented to PCP office yesterday with complaints of worsening SOB with exertional activities over the prior 5 days. EKG was obtained and found to have new onset atrial flutter with controlled ventricular response. He was sent to the ER for evaluation. Upon arrival to ER, initial troponin was negative, along with subsequent repeat troponin x2. BNP was normal. Chest xray was read as mild pulm vascular congestion without edema. He was treated with one dose of IV lasix. EKG once again confirmed atrial flutter with controlled ventricular response. Rates were controlled. Home dose metoprolol tartrate was continued. He was started on IV heparin and admitted for further treatment/work up. At time of consult, patient resting in bed comfortably. He denies acute complaints other than dyspnea with exertional activities such as ambulation to the restroom. No SOB at rest. No orthopnea, PND or edema. Patient denies recent cough, fever, chills. No recent weight gain. He is unaware of palpitations or "fluttering". No dizziness, syncope or near syncope. To his knowledge, he denies a history of atrial fibrillation or flutter. He ate breakfast this morning prior to consult. Allergies Allergy/AdvReac Type Severity Reaction Status Date / Time fentanyl AdvReac Mild vomiting Verified 06/23/21 16:29 oxycodone AdvReac Mild vomiting Verified 06/23/21 16:29 propoxyphene AdvReac Mild Nausea - Verified 06/23/21 18:44 Darvocet Home Medications Medication Instructions Recorded Confirmed Type acetaminophen 500 mg tablet 1,000 mg PO BID PRN 03/01/19 06/23/21 History (Tylenol Extra Strength) aspirin 81 mg chewable tablet 81 mg PO QAM 03/01/19 06/23/21 History (Aspirin Childrens) atorvastatin 80 mg tablet 80 mg PO HS 03/01/19 06/23/21 History clopidogrel 75 mg tablet 75 mg PO QAM 03/01/19 06/23/21 History donepezil 10 mg tablet (Aricept) 10 mg PO HS 03/01/19 06/23/21 History gabapentin 600 mg tablet 600 mg PO BID 03/01/19 06/23/21 History guaifenesin 600 mg tablet, 600 mg PO Q12H PRN 03/01/19 06/23/21 History extended release 12 hr (Mucinex) hydrochlorothiazide 12.5 mg tablet 12.5 mg PO 3XWK PRN 03/01/19 06/23/21 History insulin NPH isoph U-100 human 100 25 unit SUBCUT PM 03/01/19 06/23/21 History unit/mL subcutaneous suspension (Novolin N NPH U-100 Insulin isophane) insulin NPH isoph U-100 human 100 36 unit SUBCUT QAM 03/01/19 06/23/21 History unit/mL subcutaneous suspension (Novolin N NPH U-100 Insulin isophane) insulin regular human 100 unit/mL 10 unit SUBCUT QDD 03/01/19 06/23/21 History injection solution (Novolin R Regular U-100 Insulin) insulin regular human 100 unit/mL 15 unit SUBCUT QAM 03/01/19 06/23/21 History injection solution (Novolin R Regular U-100 Insulin) insulin regular human 100 unit/mL 15 unit SUBCUT QDL 03/01/19 06/23/21 History injection solution (Novolin R Regular U-100 Insulin) isosorbide mononitrate 60 mg 60 mg PO AMHS 03/01/19 06/23/21 History tablet,extended release 24 hr lisinopril 10 mg tablet 5 mg PO HS 03/01/19 06/23/21 History magnesium oxide 400 mg PO HS 03/01/19 06/23/21 History metoprolol tartrate 100 mg tablet 100 mg PO BID 03/01/19 06/23/21 History nitroglycerin 0.4 mg sublingual 0.4 mg SUBLINGUAL UD PRN MDD 3 03/01/19 06/23/21 History tablet (Nitrostat) doses in 15 minutes nortriptyline 75 mg capsule 75 mg PO HS 03/01/19 06/23/21 History pantoprazole 40 mg tablet,delayed 40 mg PO QAM 03/01/19 06/23/21 History release pioglitazone 30 mg tablet (Actos) 30 mg PO QAM 03/01/19 06/23/21 History trazodone 100 mg tablet 100 mg PO HS 06/23/21 06/23/21 History Patient History Medical History (Updated 06/24/21 @ 12:17 by Faby Singleton PA-C) AAA (abdominal aortic aneurysm) Angina pectoris CAD (coronary artery disease) s/p angioplasty RCA in 1988, s/p CABG x 3 in 1997; NSTEMI demand ischemia after spinal surgery in 2012; S/P DWAYNE and angioplasty left circumflex in 2017 Chronic back pain COPD (chronic obstructive pulmonary disease) Diabetes Diabetes mellitus, type II GERD (gastroesophageal reflux disease) HLD (hyperlipidemia) HTN (hypertension) 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 Brendon Royal at [facility] Surgical History (Updated 03/01/19 @ 12:50 by Kanu Dee DO) H/O angioplasty History of cardiac cath History of cataract surgery S/P triple vessel bypass Family History Other Diabetes Heart disease Stroke Social History Smoking Status: Current every day smoker Cigarettes Per Day: 2; Second Hand Exposure: No; Do You Dip or Chew Tobacco: No; Tobacco Cessation Education Requested by Patient: No Hx Alcohol Use: No Hx Substance Use: Yes Substance Use Type Other:: Medical marijuana/RSO Gummies Preferred Language: Turkmen Communication Ability: Effective Demolition Worker Required: No Beliefs That Will Affect Care: None Current Living Situation: Spouse Current Living Situation Comment: ranch home Other Information That Helps Us Care for You: No Feels Safe at Home: Yes Safety Concerns: Feels Safe At This Time Assistive Devices: Denture - Upper, Denture - Lower, Glasses, Oxygen - at Night and Oxygen - Continuous Review of Systems Review of Systems: All systems reviewed & are unremarkable except as noted in HPI & below Physical Exam Constitutional: WD/WN, vitals as above well developed; no acute distress Respiratory: normal respiratory effort, lungs clear to auscultation Cardiovascular: Rate/Rhythm: + irregularly irregular Heart Sounds: normal S1 and normal S2; no murmur Vessels: no JVD Extremities: no edema Gastrointestinal (Abdomen): normal bowel sounds, soft, nontender, no hepatosplenomegaly Musculoskeletal: no cyanosis or clubbing, extremities motor strength 5/5 Skin: no rashes, warm and dry Results & Data ([facility]) Vital Signs (Past 12 Hours) Vital Signs Temp Pulse Pulse Resp BP Pulse Ox Pulse Ox 06/24/21 05:06 36.6 C 73 22 121/53 L 92 06/24/21 04:10 80 22 94 06/24/21 00:07 24 95 06/23/21 22:53 83 20 166/81 H 94 06/23/21 21:08 67 22 93 92 Laboratory Results 06/24/21 06/24/21 06/24/21 Range/Units 07:47 06:58 06:58 WBC (4.8-10.8) K/uL RBC (4.7-6.1) M/uL Hgb (14.0-18.0) g/dL Hct (42-52) % MCV (80-100) fL MCH (25-34) pg MCHC (32-36) g/dL RDW Std Deviation (36.4-46.3) fL RDW Coeff of Geremias (11.5-14.5) % Plt Count (130-400) K/uL MPV (7.4-10.4) fL Immature Gran % (Auto) % Neut % (Auto) % Lymph % (Auto) % Christian % (Auto) % Eos % (Auto) % Baso % (Auto) % Neut # (Auto) (1.4-6.5) K/uL Lymph # (Auto) (1.2-3.4) K/uL Christian # (Auto) (0.11-0.59) K/uL Eos # (Auto) (0-0.5) K/uL Baso # (Auto) (0-0.2) K/uL Immature Gran # (Auto) (0.00-0.02) K/uL PT (9.0-12.0) Seconds INR (0.9-1.1) APTT 67.5 H* (21.0-31.0) Seconds PTT Ratio 2.6 Sodium 138 (136-145) mmol/L Potassium 3.8 (3.5-5.1) mmol/L Chloride 103 (98-107) mmol/L Carbon Dioxide 26 (21-32) mmol/L Anion Gap 8.0 (3-11) BUN 18 (7-18) mg/dl Creatinine 1.06 (0.6-1.4) mg/dl Est Cr Clr Drug Dosing 65.0 ml/min Est GFR ( Amer) 78.6 ml/min Est GFR (Non-Af Amer) 67.8 ml/min BUN/Creatinine Ratio 16.6 (10-20) Glucose 133 H (70-99) mg/dl POC Glucose 129 H (70-99) mg/dl Estimat Average Glucose Hemoglobin A1c Calcium 8.6 (8.5-10.1) mg/dl Magnesium 2.2 (1.8-2.4) mg/dl Total Bilirubin (0.2-1) mg/dl AST (15-37) U/L ALT (12-78) U/L Alkaline Phosphatase (45-117) U/L Troponin I < 0.015 (0-0.045) ng/ml Total Protein (6.4-8.2) gm/dl Albumin (3.4-5.0) gm/dl Globulin (2.5-4.0) gm/dl Albumin/Globulin Ratio (0.9-2) COVID-19 Eval Order SARS-CoV-2 (PCR) (Negative) 06/24/21 06/24/21 06/24/21 Range/Units 06:58 06:58 04:29 WBC 6.51 (4.8-10.8) K/uL RBC 4.18 L (4.7-6.1) M/uL Hgb 11.8 L (14.0-18.0) g/dL Hct 37.6 L (42-52) % MCV 90.0 (80-100) fL MCH 28.2 (25-34) pg MCHC 31.4 L (32-36) g/dL RDW Std Deviation 54.0 H (36.4-46.3) fL RDW Coeff of Geremias 16.5 H (11.5-14.5) % Plt Count 160 (130-400) K/uL MPV 10.6 H (7.4-10.4) fL Immature Gran % (Auto) % Neut % (Auto) % Lymph % (Auto) % Christian % (Auto) % Eos % (Auto) % Baso % (Auto) % Neut # (Auto) (1.4-6.5) K/uL Lymph # (Auto) (1.2-3.4) K/uL Christian # (Auto) (0.11-0.59) K/uL Eos # (Auto) (0-0.5) K/uL Baso # (Auto) (0-0.2) K/uL Immature Gran # (Auto) (0.00-0.02) K/uL PT (9.0-12.0) Seconds INR (0.9-1.1) APTT (21.0-31.0) Seconds PTT Ratio Sodium (136-145) mmol/L Potassium (3.5-5.1) mmol/L Chloride (98-107) mmol/L Carbon Dioxide (21-32) mmol/L Anion Gap (3-11) BUN (7-18) mg/dl Creatinine (0.6-1.4) mg/dl Est Cr Clr Drug Dosing ml/min Est GFR ( Amer) ml/min Est GFR (Non-Af Amer) ml/min BUN/Creatinine Ratio (10-20) Glucose (70-99) mg/dl POC Glucose 134 H (70-99) mg/dl Estimat Average Glucose Pending Hemoglobin A1c Pending Calcium (8.5-10.1) mg/dl Magnesium (1.8-2.4) mg/dl Total Bilirubin (0.2-1) mg/dl AST (15-37) U/L ALT (12-78) U/L Alkaline Phosphatase (45-117) U/L Troponin I (0-0.045) ng/ml Total Protein (6.4-8.2) gm/dl Albumin (3.4-5.0) gm/dl Globulin (2.5-4.0) gm/dl Albumin/Globulin Ratio (0.9-2) COVID-19 Eval Order SARS-CoV-2 (PCR) (Negative) 06/24/21 06/23/21 06/23/21 Range/Units 00:34 23:38 22:41 WBC (4.8-10.8) K/uL RBC (4.7-6.1) M/uL Hgb (14.0-18.0) g/dL Hct (42-52) % MCV (80-100) fL MCH (25-34) pg MCHC (32-36) g/dL RDW Std Deviation (36.4-46.3) fL RDW Coeff of Geremias (11.5-14.5) % Plt Count (130-400) K/uL MPV (7.4-10.4) fL Immature Gran % (Auto) % Neut % (Auto) % Lymph % (Auto) % Christian % (Auto) % Eos % (Auto) % Baso % (Auto) % Neut # (Auto) (1.4-6.5) K/uL Lymph # (Auto) (1.2-3.4) K/uL Christian # (Auto) (0.11-0.59) K/uL Eos # (Auto) (0-0.5) K/uL Baso # (Auto) (0-0.2) K/uL Immature Gran # (Auto) (0.00-0.02) K/uL PT (9.0-12.0) Seconds INR (0.9-1.1) APTT 43.3 H (21.0-31.0) Seconds PTT Ratio 1.6 Sodium (136-145) mmol/L Potassium (3.5-5.1) mmol/L Chloride (98-107) mmol/L Carbon Dioxide (21-32) mmol/L Anion Gap (3-11) BUN (7-18) mg/dl Creatinine (0.6-1.4) mg/dl Est Cr Clr Drug Dosing ml/min Est GFR ( Amer) ml/min Est GFR (Non-Af Amer) ml/min BUN/Creatinine Ratio (10-20) Glucose (70-99) mg/dl POC Glucose 217 H 194 H (70-99) mg/dl Estimat Average Glucose Hemoglobin A1c Calcium (8.5-10.1) mg/dl Magnesium (1.8-2.4) mg/dl Total Bilirubin (0.2-1) mg/dl AST (15-37) U/L ALT (12-78) U/L Alkaline Phosphatase (45-117) U/L Troponin I (0-0.045) ng/ml Total Protein (6.4-8.2) gm/dl Albumin (3.4-5.0) gm/dl Globulin (2.5-4.0) gm/dl Albumin/Globulin Ratio (0.9-2) COVID-19 Eval Order SARS-CoV-2 (PCR) (Negative) 06/23/21 06/23/21 06/23/21 Range/Units 22:04 16:37 16:37 WBC (4.8-10.8) K/uL RBC (4.7-6.1) M/uL Hgb (14.0-18.0) g/dL Hct (42-52) % MCV (80-100) fL MCH (25-34) pg MCHC (32-36) g/dL RDW Std Deviation (36.4-46.3) fL RDW Coeff of Geremias (11.5-14.5) % Plt Count (130-400) K/uL MPV (7.4-10.4) fL Immature Gran % (Auto) % Neut % (Auto) % Lymph % (Auto) % Christian % (Auto) % Eos % (Auto) % Baso % (Auto) % Neut # (Auto) (1.4-6.5) K/uL Lymph # (Auto) (1.2-3.4) K/uL Christian # (Auto) (0.11-0.59) K/uL Eos # (Auto) (0-0.5) K/uL Baso # (Auto) (0-0.2) K/uL Immature Gran # (Auto) (0.00-0.02) K/uL PT (9.0-12.0) Seconds INR (0.9-1.1) APTT (21.0-31.0) Seconds PTT Ratio Sodium (136-145) mmol/L Potassium (3.5-5.1) mmol/L Chloride (98-107) mmol/L Carbon Dioxide (21-32) mmol/L Anion Gap (3-11) BUN (7-18) mg/dl Creatinine (0.6-1.4) mg/dl Est Cr Clr Drug Dosing ml/min Est GFR ( Amer) ml/min Est GFR (Non-Af Amer) ml/min BUN/Creatinine Ratio (10-20) Glucose (70-99) mg/dl POC Glucose (70-99) mg/dl Estimat Average Glucose Hemoglobin A1c Calcium (8.5-10.1) mg/dl Magnesium (1.8-2.4) mg/dl Total Bilirubin (0.2-1) mg/dl AST (15-37) U/L ALT (12-78) U/L Alkaline Phosphatase (45-117) U/L Troponin I < 0.015 (0-0.045) ng/ml Total Protein (6.4-8.2) gm/dl Albumin (3.4-5.0) gm/dl Globulin (2.5-4.0) gm/dl Albumin/Globulin Ratio (0.9-2) COVID-19 Eval Order Covid19 at [facility] SARS-CoV-2 (PCR) NEGATIVE (Negative) 06/23/21 06/23/21 06/23/21 Range/Units 15:56 15:56 15:56 WBC 6.49 (4.8-10.8) K/uL RBC 4.18 L (4.7-6.1) M/uL Hgb 12.2 L (14.0-18.0) g/dL Hct 38.7 L (42-52) % MCV 92.6 (80-100) fL MCH 29.2 (25-34) pg MCHC 31.5 L (32-36) g/dL RDW Std Deviation 55.3 H (36.4-46.3) fL RDW Coeff of Geremias 16.4 H (11.5-14.5) % Plt Count 157 (130-400) K/uL MPV 10.5 H (7.4-10.4) fL Immature Gran % (Auto) 0.2 % Neut % (Auto) 71.5 % Lymph % (Auto) 12.0 % Christian % (Auto) 11.6 % Eos % (Auto) 4.2 % Baso % (Auto) 0.5 % Neut # (Auto) 4.65 (1.4-6.5) K/uL Lymph # (Auto) 0.78 L (1.2-3.4) K/uL Christian # (Auto) 0.75 H (0.11-0.59) K/uL Eos # (Auto) 0.27 (0-0.5) K/uL Baso # (Auto) 0.03 (0-0.2) K/uL Immature Gran # (Auto) 0.01 (0.00-0.02) K/uL PT 10.3 (9.0-12.0) Seconds INR 1.0 (0.9-1.1) APTT 26.3 (21.0-31.0) Seconds PTT Ratio 1.0 Sodium 137 (136-145) mmol/L Potassium 4.4 (3.5-5.1) mmol/L Chloride 107 (98-107) mmol/L Carbon Dioxide 24 (21-32) mmol/L Anion Gap 6.0 (3-11) BUN 17 (7-18) mg/dl Creatinine 1.14 (0.6-1.4) mg/dl Est Cr Clr Drug Dosing 60.4 ml/min Est GFR ( Amer) 72.0 ml/min Est GFR (Non-Af Amer) 62.1 ml/min BUN/Creatinine Ratio 15.0 (10-20) Glucose 81 (70-99) mg/dl POC Glucose (70-99) mg/dl Estimat Average Glucose Hemoglobin A1c Calcium 8.7 (8.5-10.1) mg/dl Magnesium 2.3 (1.8-2.4) mg/dl Total Bilirubin 0.7 (0.2-1) mg/dl AST 12 L (15-37) U/L ALT 17 (12-78) U/L Alkaline Phosphatase 88 (45-117) U/L Troponin I < 0.015 (0-0.045) ng/ml Total Protein 6.8 (6.4-8.2) gm/dl Albumin 3.1 L (3.4-5.0) gm/dl Globulin 3.7 (2.5-4.0) gm/dl Albumin/Globulin Ratio 0.8 L (0.9-2) COVID-19 Eval Order SARS-CoV-2 (PCR) (Negative) Diagnostic Findings Telemetry reviewed: persistent atrial flutter with variable AV block and controlled rates ranging 70-90 bpm Echo during this admission: Afib/flutter with controlled ventricular rates noted during exam. Mild concentric LVH LV wall motion is normal. EF 55-60% RV is normal in size and function LA is moderately dilated Aortic valve sclerosis moderate without significant aortic valvular stenosis Mild MR. Moderate atherosclerotic plaque in the ascending aorta. EKG on admission reviewed: Atrial flutter with variable A-V block with premature ventricular or aberrantly conducted complexes Left axis deviation Abnormal ECG When compared with ECG of 01-MAR-2019 04:39, Atrial flutter has replaced Sinus rhythm EKG at outpatient office reviewed yesterday - Atrial flutter with controlled rate at 60 bpm Left anterior fascicular block Cannot rule out Anterior infarct , age undetermined Atrial flutter has replaced Sinus rhythm Chest xray report on admission: IMPRESSION: Slight progression of the mild central pulmonary vascular congestion without overt edema. Stable cardiomegaly. Prior echo in 2019: Interpretation Summary The examination is adequate to evaluate the referral indication. The qualitative LV ejection fraction is 50-54% (normal). No LV segmental wall motion abnormalities. There is moderate mitral annular calcification. Mild mitral regurgitation is present. There is no evidence of pulmonary hypertension. Medications Administered Current Inpatient Medications Acetaminophen (Acetaminophen 325 Mg Tab) 650 mg PO Q4H PRN PRN Reason: Pain or Fever Stop: 07/23/21 20:56 [facility]irin ([facility]in 81 Mg Chew) [facility] Stop: 07/24/21 08:59 Last Admin: 06/24/21 08:52 Dose: 81 mg Documented by: Atorvastatin Calcium (Atorvastatin 40 Mg Tab) 80 mg PO [facility] Stop: 07/23/21 21:59 Last Admin: 06/23/21 22:38 Dose: 80 mg Documented by: Clopidogrel Bisulfate (Clopidogrel Bisulfate 75 Mg Tab) 75 mg PO [facility] Stop: 07/24/21 08:59 Last Admin: 06/24/21 08:52 Dose: 75 mg Documented by: Dextrose (Dextrose 50% 50 Ml Syringe) 25 - 50 ml IV UD PRN; Protocol PRN Reason: Hypoglycemia Protocol Stop: 07/23/21 20:56 Donepezil HCl (Donepezil Hcl 10 Mg Tab) 10 mg PO [facility] Stop: 07/23/21 21:59 Last Admin: 06/23/21 22:38 Dose: 10 mg Documented by: Gabapentin (Gabapentin 600 Mg Tab) 600 mg PO BID [facility] Stop: 07/23/21 21:59 Last Admin: 06/24/21 08:52 Dose: 600 mg Documented by: Glucagon (Glucagon For Inj 1 Mg Vial) 1 mg SQ UD PRN; Protocol PRN Reason: Hypoglycemia Protocol Stop: 07/23/21 20:56 Glucose (Glucose 10 Tabs/Tube) 4 - 8 tabs PO UD PRN; Protocol PRN Reason: Hypoglycemia Protocol Stop: 07/23/21 20:56 Glucose (Glucose 40% Gel 15 Gm Tube) 15 - 30 gm PO UD PRN; Protocol PRN Reason: Hypoglycemia Protocol Stop: 07/23/21 20:56 Guaifenesin (Guaifenesin 600 Mg Tabcr) 600 mg PO Q12H PRN PRN Reason: cough and congestion Stop: 07/23/21 20:56 Heparin Sodium/Dextrose (Heparin Sodium/Dextrose) 25,000 units in 500 mls @ 21 mls/hr IV .[id number] [facility]; Protocol Stop: 07/23/21 18:44 Last Titration: 06/24/21 01:18 Dose: 1,050 units/hr, 21 mls/hr Documented by: Insulin Aspart (Insulin Aspart 100 Units/Ml 3 Ml Pen) 0 units SC ACHS [facility]; Protocol Stop: 07/23/21 21:44 Last Admin: 06/24/21 08:51 Dose: 4 units Documented by: Insulin Human NPH (Insulin Human Nph) 25 units SC QDB [facility]; Protocol Stop: 07/24/21 07:29 Last Admin: 06/24/21 08:51 Dose: 25 units Documented by: Insulin Human NPH (Insulin Human Nph) 20 units SC DAILY@1630 [facility]; Protocol Stop: 07/24/21 16:29 Isosorbide Mononitrate (Isosorbide Christian Extended Rel 60 Mg Tabcr) 60 mg PO BID [facility] Stop: 07/23/21 21:59 Last Admin: 06/24/21 08:52 Dose: 60 mg Documented by: Lisinopril (Lisinopril 5 Mg Tab) 5 mg PO [facility] Stop: 07/23/21 21:59 Last Admin: 06/23/21 22:38 Dose: 5 mg Documented by: Magnesium Oxide (Magnesium Oxide 400 Mg Tab) 400 mg PO [facility] Stop: 07/23/21 21:59 Last Admin: 06/23/21 22:38 Dose: 400 mg Documented by: Metoprolol Tartrate (Metoprolol Tartrate 100 Mg Tab) 100 mg PO BID [facility] Stop: 07/23/21 21:59 Last Admin: 06/24/21 08:52 Dose: 100 mg Documented by: Miscellaneous (Carbohydrates For Hypoglycemia ) 15 - 30 gm PO UD PRN PRN Reason: Hypoglycemia Protocol Stop: 07/23/21 20:56 Miscellaneous Information (Pharmacy Glycemic Mgmt Consult) 1 ea N/A UD PRN; Protocol PRN Reason: Consult Stop: 07/23/21 20:54 Nitroglycerin (Nitroglycerin Sl 0.4 Mg/Tab Tab) 0.4 mg SL Q5M PRN PRN Reason: Chest Pain Stop: 07/23/21 20:56 Nortriptyline HCl (Nortriptyline Hcl 25 Mg Cap) 75 mg PO [facility] Stop: 07/23/21 21:59 Last Admin: 06/23/21 22:39 Dose: 75 mg Documented by: Ondansetron HCl (Ondansetron Inj 2 Mg/Ml 2 Ml Vial) 4 mg IV Q6H PRN PRN Reason: Nausea Stop: 07/23/21 20:56 Pantoprazole Sodium (Pantoprazole 40 Mg Tab) 40 mg PO QAM [facility] Stop: 07/24/21 08:59 Last Admin: 06/24/21 08:52 Dose: 40 mg Documented by: Polyethylene Glycol (Polyethylene (Miralax) 17 Gm Pack) 17 gm PO DAILY PRN PRN Reason: Constipation Stop: 07/23/21 20:56 Trazodone HCl (Trazodone Hcl 100 Mg Tab) 100 mg PO HS [facility] Stop: 07/23/21 21:59 Last Admin: 06/23/21 22:39 Dose: 100 mg Documented by:
[2021-06-24 10:13] LABS: Estimated Average Glucose 154 mg/dl
--- NOTE | 2021-06-24 11:19 | Pharmacy Report ---
Pharmacy Glycemic Short Note 2 - Date of Service June 24, 2021 - Glycemic Short BSG Results (Last 24 hours): 06/23/21 06/23/21 06/23/21 15:56 22:41 23:38 Glucose 81 POC Glucose 194 H 217 H 06/24/21 06/24/21 06/24/21 04:29 06:58 07:47 Glucose 133 H POC Glucose 134 H 129 H OUTPATIENT ANTIDIABETIC REGIMEN (per patient report 06/24/21): * NPH 36 units SC AM + 25 units SC PM * Novolin R 15 units SC with breakfast, lunch, and dinner - of note however, he claims that he only eats two meals per day on average * 7.0% 06/24/21 ASSESSMENT: * 75 yo M admitted from outpatient cardiology office today secondary to dyspnea on exertion and new onset a flutter. Outpatient records indicate patient is a type 1 diabetic but our records indicate type 2. I spoke with patient today and he claims he is a type 2 diabetic first diagnosed during his hospital admit for cardiac intervention at [facility]. * Fasting BSG at goal this AM, FBS = 129, after having received only 36 units NPH yesterday AM. Will continue same dose however will split BID and give 2/3 dose in AM and 1/3 dose in PM. * Novolog dosing parameters are reasonable starting points for someone reported to require ~100 units per day in outpt setting PLAN FOR INPATIENT GLYCEMIC CONTROL: * Basal insulin * NPH 25 units SC w/ breakfast + 12 units with evening meal * Bolus insulin * NovoLog per scale ACHS and at 0200 to screen for hyper- / hypo- glycemia initially * Goal Range: Low 110 mg/dL - High 140 mg/dL * Correction Factor: 15 mg/dL/unit * Nutritional / Prandial insulin per carb ratio of 1 unit per 5 grams CHO consumed PLAN FOR DISCHARGE: * To be determined
--- NOTE | 2021-06-24 15:52 | Hospitalist Progress Note ---
Date of Service June 24, 2021 Assessment & Plan (1) CHF (congestive heart failure): Plan: Exertional shortness of breath for the last 7 days Chest x-ray evidence of pulmonary congestion and new onset a flutter with variable block Has 1+ edema bilaterally Will give 40 mg Lasix IV x1 and decide further Lasix tomorrow Appreciate cardiology input and recommendation Echo of the heart did not show any significant findings and the EF was 55 to 60%. LV is moderately dilated. Aortic sclerosis without stenosis. Moderate atherosclerotic plaques in the ascending aorta Denies any symptoms of shortness of breath at rest (2) Atrial flutter: Plan: Noted to be a flutter with variable block and the rate is controlled Started on low-dose heparin without bolus after discussion pros and cons with heparin We will get serial cardiac enzymes to rule out any ACS Continue beta-ning Serial cardiac enzymes have been negative for any ACS and EKG did not show any significant change Has been on heparin and will be put on Eliquis on discharge HEAVENLY tomorrow and cardioversion tomorrow (3) CAD (coronary artery disease): Plan: History of CAD and status post CABG No acute chest pain (4) COPD (chronic obstructive pulmonary disease): Plan: History of COPD and sleep apnea Has been using oxygen at nighttime (5) Diabetes mellitus, type II: Plan: We will put him on sliding scale insulin coverage (6) VENICE (obstructive sleep apnea): Plan: Uses CPAP/BiPAP at night with oxygen Continue BiPAP with home setting (7) PAD (peripheral artery disease): Plan: No acute symptoms (8) AAA (abdominal aortic aneurysm): Plan: Denies any abdominal pain (9) HLD (hyperlipidemia): Plan: Continue statin (10) HTN (hypertension): Plan: Blood pressure remains on the upper side Continue home blood pressure medication (11) GERD (gastroesophageal reflux disease): Plan: Continue PPI DVT prophylaxis Intravenous heparin CODE STATUS Full Admission and Anticipated Discharge Date Admission Date: June 23, 2021 Subjective 06/24/2021 The patient was seen and examined in emergency room-he has been waiting to go up Has been feeling much better Denies any symptoms of palpitation and/or shortness of breath Review of Systems Review of Systems: All systems reviewed and are unremarkable except as noted below Respiratory: Shortness of breath on exertion Physical Exam Physical Exam: Lying in bed with minimal shortness of breath Constitutional: well developed, well nourished, + ill appearing and + obese Eyes: PERRL, conjunctivae normal, anicteric sclerae ENMT: external ear and nose normal, oropharynx normal Neck: trachea midline, no thyromegaly Respiratory: + respiratory distress (Minimal shortness of breath at rest); no cough Auscultation: + diminished lung sounds and + crackles (Minimal crackles at the bases) Cardiovascular: Rate/Rhythm: + irregularly irregular; not tachycardic Heart Sounds: normal S1, normal S2 and + murmur (2/6 ESM over precordium) Extremities: + edema (1+ edema bilaterally) Gastrointestinal (Abdomen): Inspection/Auscultation: normal bowel sounds; abdomen not distended Percussion/Palpation: abdomen soft; abdomen nontender Musculoskeletal: No acute arthritis in any joint Neurologic: Alert, awake and oriented x3 Psychiatric: A+Ox3, euthymic affect Lymphatic: no cervical or axillary lymphadenopathy Results & Data Results & Data ([facility]) Vital Signs (Past 12 Hours) Vital Signs Temp Pulse Pulse Resp BP Pulse Ox 06/24/21 05:06 36.6 C 73 22 121/53 L 92 06/24/21 04:10 80 22 94 Laboratory Results Short CBC 06/23/21 06/24/21 Range/Units 15:56 06:58 WBC 6.49 6.51 (4.8-10.8) K/uL Hgb 12.2 L 11.8 L (14.0-18.0) g/dL Hct 38.7 L 37.6 L (42-52) % Plt Count 157 160 (130-400) K/uL BMP 06/23/21 06/24/21 15:56 06:58 Sodium 137 138 Potassium 4.4 3.8 Chloride 107 103 Carbon Dioxide 24 26 BUN 17 18 Creatinine 1.14 1.06 Glucose 81 133 H Calcium 8.7 8.6 Cardiac Enzymes 06/23/21 06/23/21 06/24/21 Range/Units 15:56 22:04 06:58 Troponin I < 0.015 < 0.015 < 0.015 (0-0.045) ng/ml Liver Function 06/23/21 Range/Units 15:56 Total Bilirubin 0.7 (0.2-1) mg/dl AST 12 L (15-37) U/L ALT 17 (12-78) U/L Alkaline Phosphatase 88 (45-117) U/L Albumin 3.1 L (3.4-5.0) gm/dl Medications Administered Current Inpatient Medications Acetaminophen (Acetaminophen 325 Mg Tab) 650 mg PO Q4H PRN PRN Reason: Pain or Fever Stop: 07/23/21 20:56 Aspirin ([facility]in 81 Mg Chew) [facility] [place]: 07/24/21 08:59 Last Admin: 06/24/21 08:52 Dose: 81 mg Documented by: Atorvastatin Calcium (Atorvastatin 40 Mg Tab) 80 mg PO [facility] Stop: 07/23/21 21:59 Last Admin: 06/23/21 22:38 Dose: 80 mg Documented by: Clopidogrel Bisulfate (Clopidogrel Bisulfate 75 Mg Tab) 75 mg PO [facility] Stop: 07/24/21 08:59 Last Admin: 06/24/21 08:52 Dose: 75 mg Documented by: Dextrose (Dextrose 50% 50 Ml Syringe) 25 - 50 ml IV UD PRN; Protocol PRN Reason: Hypoglycemia Protocol Stop: 07/23/21 20:56 Donepezil HCl (Donepezil Hcl 10 Mg Tab) 10 mg PO [facility] Stop: 07/23/21 21:59 Last Admin: 06/23/21 22:38 Dose: 10 mg Documented by: Gabapentin (Gabapentin 600 Mg Tab) 600 mg PO BID [facility] Stop: 07/23/21 21:59 Last Admin: 06/24/21 08:52 Dose: 600 mg Documented by: Glucagon (Glucagon For Inj 1 Mg Vial) 1 mg SQ UD PRN; Protocol PRN Reason: Hypoglycemia Protocol Stop: 07/23/21 20:56 Glucose (Glucose 10 Tabs/Tube) 4 - 8 tabs PO UD PRN; Protocol PRN Reason: Hypoglycemia Protocol Stop: 07/23/21 20:56 Glucose (Glucose 40% Gel 15 Gm Tube) 15 - 30 gm PO UD PRN; Protocol PRN Reason: Hypoglycemia Protocol Stop: 07/23/21 20:56 Guaifenesin (Guaifenesin 600 Mg Tabcr) 600 mg PO Q12H PRN PRN Reason: cough and congestion Stop: 07/23/21 20:56 Heparin Sodium/Dextrose (Heparin Sodium/Dextrose) 25,000 units in 500 mls @ 19 mls/hr IV .Q24H LYNDA; Protocol Stop: 07/23/21 18:44 Last Titration: 06/24/21 09:07 Dose: 950 units/hr, 19 mls/hr Documented by: Insulin Aspart (Insulin Aspart 100 Units/Ml 3 Ml Pen) 0 units SC ACHS [facility]; Protocol Stop: 07/23/21 21:44 Last Admin: 06/24/21 12:46 Dose: 10 units Documented by: Insulin Aspart (Insulin Aspart 100 Units/Ml 3 Ml Pen) 0 units SC TODAY@0200 [facility]; Protocol Stop: 06/25/21 02:01 Insulin Human NPH (Insulin Human Nph) 25 units SC QDB [facility]; Protocol Stop: 07/24/21 07:29 Last Admin: 06/24/21 08:51 Dose: 25 units Documented by: Insulin Human NPH (Insulin Human Nph) 12 units SC DAILY@1630 [facility]; Protocol Stop: 07/24/21 16:29 Isosorbide Mononitrate (Isosorbide [place] Extended Rel 60 Mg Tabcr) 60 mg PO BID [facility] Stop: 07/23/21 21:59 Last Admin: 06/24/21 08:52 Dose: 60 mg Documented by: Lisinopril (Lisinopril 5 Mg Tab) 5 mg PO [facility] Stop: 07/23/21 21:59 Last Admin: 06/23/21 22:38 Dose: 5 mg Documented by: Magnesium Oxide (Magnesium Oxide 400 Mg Tab) 400 mg PO [facility] Stop: 07/23/21 21:59 Last Admin: 06/23/21 22:38 Dose: 400 mg Documented by: Metoprolol Tartrate (Metoprolol Tartrate 100 Mg Tab) 100 mg PO BID [facility] Stop: 07/23/21 21:59 Last Admin: 06/24/21 08:52 Dose: 100 mg Documented by: Miscellaneous (Carbohydrates For Hypoglycemia ) 15 - 30 gm PO UD PRN PRN Reason: Hypoglycemia Protocol Stop: 07/23/21 20:56 Miscellaneous Information (Pharmacy Glycemic Mgmt Consult) 1 ea N/A UD PRN; Protocol PRN Reason: Consult Stop: 07/23/21 20:54 Nitroglycerin (Nitroglycerin Sl 0.4 Mg/Tab Tab) 0.4 mg SL Q5M PRN PRN Reason: Chest Pain Stop: 07/23/21 20:56 Nortriptyline HCl (Nortriptyline Hcl 25 Mg Cap) 75 mg PO HS [facility] Stop: 07/23/21 21:59 Last Admin: 06/23/21 22:39 Dose: 75 mg Documented by: Ondansetron HCl (Ondansetron Inj 2 Mg/Ml 2 Ml Vial) 4 mg IV Q6H PRN PRN Reason: Nausea Stop: 07/23/21 20:56 Pantoprazole Sodium (Pantoprazole 40 Mg Tab) 40 mg PO [facility] Stop: 07/24/21 08:59 Last Admin: 06/24/21 08:52 Dose: 40 mg Documented by: Polyethylene Glycol (Polyethylene (Miralax) 17 Gm Pack) 17 gm PO DAILY PRN PRN Reason: Constipation Stop: 07/23/21 20:56 Trazodone HCl (Trazodone Hcl 100 Mg Tab) 100 mg PO [facility] Stop: 07/23/21 21:59 Last Admin: 06/23/21 22:39 Dose: 100 mg Documented by:
[2021-06-24 16:06] LABS: Partial Thromboplastin Ratio 2.4
[2021-06-24 16:21] LABS: Partial Thromboplastin Time 62.3 Seconds (21.0-31.0)
--- NOTE | 2021-06-24 16:53 | Anesthesiology Consultation ---
Date of Service June 24, 2021 Assessment & Plan Chart Review Chart Review: Acceptable Risk for Surgery Consults Requested none History Surgery Operation Date: 06/25/21 07:15 Proposed Procedures p Transesophageal Echo w/Anesthesia - Marco Antonio Joseph DO s Cardioversion [employer] w/Anesthesia - Marco Antonio Joseph DO Height/Weight Height: 5 ft 5 in Weight: 101.5 kg Allergies Allergy/AdvReac Type Severity Reaction Status Date / Time fentanyl AdvReac Mild vomiting Verified 06/23/21 16:29 oxycodone AdvReac Mild vomiting Verified 06/23/21 16:29 propoxyphene AdvReac Mild Nausea - Verified 06/23/21 18:44 Darvocet Medications Home Medications Medication Instructions Recorded Confirmed Last Taken acetaminophen 500 mg tablet 1,000 mg PO BID PRN 03/01/19 06/23/21 06/23/21 (Tylenol Extra Strength) aspirin 81 mg chewable tablet 81 mg PO QAM 03/01/19 06/23/21 06/23/21 (Aspirin Childrens) atorvastatin 80 mg tablet 80 mg PO HS 03/01/19 06/23/21 06/22/21 clopidogrel 75 mg tablet 75 mg PO QAM 03/01/19 06/23/21 06/23/21 donepezil 10 mg tablet (Aricept) 10 mg PO HS 03/01/19 06/23/21 06/22/21 gabapentin 600 mg tablet 600 mg PO BID 03/01/19 06/23/21 06/23/21 guaifenesin 600 mg tablet, 600 mg PO Q12H PRN 03/01/19 06/23/21 06/22/21 extended release 12 hr (Mucinex) hydrochlorothiazide 12.5 mg tablet 12.5 mg PO 3XWK PRN 03/01/19 06/23/21 02/26/19 insulin NPH isoph U-100 human 100 25 unit SUBCUT PM 03/01/19 06/23/21 06/22/21 unit/mL subcutaneous suspension (Novolin N NPH U-100 Insulin isophane) insulin NPH isoph U-100 human 100 36 unit SUBCUT QAM 03/01/19 06/23/21 06/23/21 unit/mL subcutaneous suspension (Novolin N NPH U-100 Insulin isophane) insulin regular human 100 unit/mL 10 unit SUBCUT QDD 03/01/19 06/23/21 06/22/21 injection solution (Novolin R Regular U-100 Insulin) insulin regular human 100 unit/mL 15 unit SUBCUT QAM 03/01/19 06/23/21 06/23/21 injection solution (Novolin R Regular U-100 Insulin) insulin regular human 100 unit/mL 15 unit SUBCUT QDL 03/01/19 06/23/21 06/22/21 injection solution (Novolin R Regular U-100 Insulin) isosorbide mononitrate 60 mg 60 mg PO [facility] 03/01/19 06/23/21 06/23/21 tablet,extended release 24 hr lisinopril 10 mg tablet 5 mg PO HS 03/01/19 06/23/21 06/22/21 magnesium oxide 400 mg PO HS 03/01/19 06/23/21 06/22/21 metoprolol tartrate 100 mg tablet 100 mg PO BID 03/01/19 06/23/21 06/23/21 nitroglycerin 0.4 mg sublingual 0.4 mg SUBLINGUAL UD PRN MDD 3 03/01/19 06/23/21 03/01/19 tablet (Nitrostat) doses in 15 minutes nortriptyline 75 mg capsule 75 mg PO HS 03/01/19 06/23/21 06/22/21 pantoprazole 40 mg tablet,delayed 40 mg PO QAM 03/01/19 06/23/21 06/23/21 release pioglitazone 30 mg tablet (Actos) 30 mg PO QAM 03/01/19 06/23/21 06/23/21 trazodone 100 mg tablet 100 mg PO HS 06/23/21 06/23/21 06/22/21 Active Medications Generic Name Dose Route Start Last Admin Trade Name Freq PRN Reason Stop Dose Admin Aspirin 81 mg 06/24/21 09:00 06/24/21 08:52 Aspirin 81 Mg Chew PO 07/24/21 08:59 81 mg QAM LYNDA Administration Atorvastatin Calcium 80 mg 06/23/21 22:00 06/23/21 22:38 Atorvastatin 40 Mg Tab PO 07/23/21 21:59 80 mg HS LYNDA Administration Clopidogrel Bisulfate 75 mg 06/24/21 09:00 06/24/21 08:52 Clopidogrel Bisulfate 75 Mg Tab PO 07/24/21 08:59 75 mg QAM LYNDA Administration Donepezil HCl 10 mg 06/23/21 22:00 06/23/21 22:38 Donepezil Hcl 10 Mg Tab PO 07/23/21 21:59 10 mg HS LYNDA Administration Gabapentin 600 mg 06/23/21 22:00 06/24/21 08:52 Gabapentin 600 Mg Tab PO 07/23/21 21:59 600 mg BID LYNDA Administration Heparin Sodium/Dextrose 25,000 units in 500 mls @ 19 mls/hr 06/23/21 18:45 06/24/21 09:07 Heparin Sodium/Dextrose IV 07/23/21 18:44 950 units/hr .Q24H LYNDA 19 mls/hr Titration Protocol 950 UNITS/HR Insulin Aspart 0 units 06/23/21 21:45 06/24/21 12:46 Insulin Aspart 100 Units/Ml 3 Ml Pen SC 07/23/21 21:44 10 units ACHS LYNDA Administration Protocol Insulin Human NPH 25 units 06/24/21 07:30 06/24/21 08:51 Insulin Human Nph SC 07/24/21 07:29 25 units QDB LYNDA Administration Protocol Isosorbide Mononitrate 60 mg 06/23/21 22:00 06/24/21 08:52 Isosorbide [place] Extended Rel 60 Mg Tabcr PO 07/23/21 21:59 60 mg BID LYNDA Administration Lisinopril 5 mg 06/23/21 22:00 06/23/21 22:38 Lisinopril 5 Mg Tab PO 07/23/21 21:59 5 mg HS LYNDA Administration Magnesium Oxide 400 mg 06/23/21 22:00 06/23/21 22:38 Magnesium Oxide 400 Mg Tab PO 07/23/21 21:59 400 mg HS LYNDA Administration Metoprolol Tartrate 100 mg 06/23/21 22:00 06/24/21 08:52 Metoprolol Tartrate 100 Mg Tab PO 07/23/21 21:59 100 mg BID LYNDA Administration Nortriptyline HCl 75 mg 06/23/21 22:00 06/23/21 22:39 Nortriptyline Hcl 25 Mg Cap PO 07/23/21 21:59 75 mg HS LYNDA Administration Pantoprazole Sodium 40 mg 06/24/21 09:00 06/24/21 08:52 Pantoprazole 40 Mg Tab PO 07/24/21 08:59 40 mg QAM LYNDA Administration Trazodone HCl 100 mg 06/23/21 22:00 06/23/21 22:39 Trazodone Hcl 100 Mg Tab PO 07/23/21 21:59 100 mg HS LYNDA Administration Past Medical History Medical History (Updated 06/24/21 @ 12:17 by Faby Singleton PA-C) AAA (abdominal aortic aneurysm) Angina pectoris CAD (coronary artery disease) s/p angioplasty RCA in 1988, s/p CABG x 3 in 1997; NSTEMI demand ischemia after spinal surgery in 2012; S/P DWAYNE and angioplasty left circumflex in 2016 Chronic back pain COPD (chronic obstructive pulmonary disease) Diabetes Diabetes mellitus, type II GERD (gastroesophageal reflux disease) HLD (hyperlipidemia) HTN (hypertension) 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 [facility] [place] Family History Family History Other Diabetes Heart disease Stroke Past Surgical History Surgical History (Updated 03/01/19 @ 12:50 by Kanu Dee DO) H/O angioplasty History of cardiac cath History of cataract surgery S/P triple vessel bypass Social History Smoking Status: Current every day smoker tobacco type: cigarettes Smoking cigarettes per day: 2 Do You Dip or Chew Tobacco: No Hx Alcohol Use: No Hx Substance Use: Yes Substance Use Type Other:: Medical marijuana/RSO Gummies Physical Exam Vital Signs Last Vital Signs Temp 36.6 C 06/24/21 16:16 Pulse 61 06/24/21 16:16 Resp 18 06/24/21 16:16 BP 117/72 06/24/21 16:16 Pulse Ox 96 06/24/21 16:16 Testing Laboratory Results 06/24/21 06:58 06/24/21 06:58 PT 10.3 Seconds (9.0-12.0) 06/23/21 15:56 INR 1.0 (0.9-1.1) 06/23/21 15:56 APTT 62.3 Seconds (21.0-31.0) H* 06/24/21 15:29 Hemoglobin A1c 7.0 % (4.5-5.6) H 06/24/21 06:58 06/24/21 06/24/21 06/24/21 15:44 12:01 07:47 POC Glucose 101 H 220 H 129 H
[2021-06-24] MEDS: HEPARIN SODIUM/DEXTROSE 25,000 UNITS/500 ML BAG IV SCH (20:16)
[2021-06-24] MEDS: NORTRIPTYLINE HCL 25 MG CAP PO SCH (20:56)
[2021-06-24] MEDS: traZODone HCL 100 MG TAB PO SCH (20:56)
[2021-06-24] MEDS: lisinopril 5 MG TAB PO SCH (20:57)
[2021-06-24] MEDS: DONEPEZIL HCL 10 MG TAB PO SCH (20:57)
[2021-06-24] MEDS: ATORVASTATIN 40 MG TAB PO SCH (20:58)
[2021-06-24] MEDS: MAGNESIUM OXIDE 400 MG TAB PO SCH (20:58)
[2021-06-24] MEDS: APIXABAN 5 MG TABLET PO SCH (20:58)
[2021-06-25] MEDS ORDERED: INSULIN ASPART 100 UNITS/ML 3 ML PEN SC ONE (02:00)
[2021-06-25 06:27] LABS: Mean Corpuscular Hemoglobin 29.2 pg (25-34); Mean Corpuscular Hgb Conc 32.4 g/dL (32-36); Mean Platelet Volume 10.4 fL (7.4-10.4); Platelet Count 156 K/uL (130-400); RDW Coefficient of Variation 16.4 % (11.5-14.5); RDW Standard Deviation 53.7 fL (36.4-46.3); Red Blood Count 4.11 M/uL (4.7-6.1); White Blood Count 6.12 K/uL (4.8-10.8)
[2021-06-25] MEDS ORDERED: LIDOCAINE 2% 2 ML VIAL/AMP(20MG/ML) INFIL ONE (06:52)
[2021-06-25] MEDS ORDERED: PROPOFOL IV EMULSION 10 MG/ML 20 ML VIAL IV ONE (06:52)
[2021-06-25 06:55] LABS: BUN Creatinine Ratio 16.8 (10-20); Calcium 8.3 mg/dl (8.5-10.1); Creatinine Clr Calc Pharmacy 57.5 ml/min; Est GFR (African American) 69.1 ml/min; Est GFR (Non-African American) 59.6 ml/min; Magnesium 2.4 mg/dl (1.8-2.4); Potassium 3.8 mmol/L (3.5-5.1)
--- NOTE | 2021-06-25 07:21 | History & Physical Bridge Note ---
Date of Service June 25, 2021 History & Physical Bridge Note I have examined the patient, reviewed the History & Physical and in the interval since the performance of the History & Physical I have noted the following changes of clinical significance: no changes noted
--- NOTE | 2021-06-25 08:00 | Post Operative Brief Note ---
Cardiology Brief Post Op Date of Surgery June 25, 2021 Pre & Post Diagnosis Preprocedure diagnosis: Symptomatic atrial flutter Postprocedure diagnosis: No left atrial appendage thrombus, successful conversion to sinus rhythm Operation Date: 06/25/21 07:15 Procedure Procedure: Transesophageal echocardiogram guided direct-current cardioversion The patient's vital signs were monitored via the standard fashion. After informed consent was obtained and timeout was performed the patient received sedation with the assistance of the anesthesia service receiving a total of 80 mg of IV lidocaine and 160 mg of IV propofol. The patient underwent transesophageal echocardiogram revealing no evidence of left atrial or left atrial appendage thrombus. The left ventricular ejection fraction was normal. The patient then underwent direct-current cardioversion receiving a single dose of synchronized energy, 200 J, with successful conversion to sinus rhythm the 70s. Patient tolerated procedure well. Warehouser Marco Antonio Joseph DO Administrative Fellow Delia Young RN Estimated Blood Loss 0 Findings Consistent with Post-Op Diagnosis as noted above. Anesthesia Type MAC Complications none Disposition Disposition: PCU
--- NOTE | 2021-06-25 08:04 | Cardioversion ---
Date of Service June 25, 2021 Cardiology Brief Post Op Date of Surgery June 25, 2021 Pre & Post Diagnosis Preprocedure diagnosis: Symptomatic atrial flutter Postprocedure diagnosis: No left atrial appendage thrombus, successful conversion to sinus rhythm Operation Date: 06/25/21 07:15 Procedure Procedure: Transesophageal echocardiogram guided direct-current cardioversion The patient's vital signs were monitored via the standard fashion. After informed consent was obtained and timeout was performed the patient received sedation with the assistance of the anesthesia service receiving a total of 80 mg of IV lidocaine and 160 mg of IV propofol. The patient underwent transesophageal echocardiogram revealing no evidence of left atrial or left atrial appendage thrombus. The left ventricular ejection fraction was normal. The patient then underwent direct-current cardioversion receiving a single dose of synchronized energy, 200 J, with successful conversion to sinus rhythm the 70s. Patient tolerated procedure well. Acute Dialysis Nurse Marco Antonio Joseph DO Manager Domestic Delia Young RN Estimated Blood Loss 0 Findings as noted above. Anesthesia Type MAC Complicationsnone DispositionDisposition:PCU
[2021-06-25] MEDS: GABAPENTIN 600 MG TAB PO SCH (09:23)
[2021-06-25] MEDS: METOPROLOL TARTRATE 100 MG TAB PO SCH (09:23)
[2021-06-25] MEDS: PANTOprazole 40 MG TAB PO SCH (09:23)
[2021-06-25] MEDS: ASPIRIN 81 MG CHEW PO SCH (09:23)
[2021-06-25] MEDS: ISOSORBIDE MONO EXTENDED REL 60 MG TABCR PO SCH (09:23)
[2021-06-25] MEDS: APIXABAN 5 MG TABLET PO SCH (09:24)
[2021-06-25] MEDS: CLOPIDOGREL BISULFATE 75 MG TAB PO SCH (09:24)
[2021-06-25] MEDS: INSULIN ASPART 100 UNITS/ML 3 ML PEN SC SCH ×2 (09:24→11:48)
[2021-06-25] MEDS ORDERED: INSULIN HUMAN NPH SC SCH (11:15)
--- NOTE | 2021-06-25 11:21 | Electrocardiogram Report ---
Test Reason : Blood Pressure : / mmHG Vent. Rate : 070 BPM Atrial Rate : 242 BPM P-R Int : 000 ms QRS Dur : 094 ms QT Int : 452 ms P-R-T Axes : 061 -47 041 degrees QTc Int : 488 ms Atrial flutter with variable A-V block Left axis deviation Incomplete right bundle branch block Prolonged QT Abnormal ECG When compared with ECG of 23-JUN-2021 15:28, No significant change was found Confirmed by Jonathan Coates ([id number]) on 06/25/2021 11:20:46 AM Referred By: Zachariah Duarte Confirmed By:Christian Coates
--- NOTE | 2021-06-25 11:21 | Electrocardiogram Report ---
Test Reason : Blood Pressure : / mmHG Vent. Rate : 072 BPM Atrial Rate : 072 BPM P-R Int : 206 ms QRS Dur : 094 ms QT Int : 424 ms P-R-T Axes : 060 -62 065 degrees QTc Int : 464 ms Normal sinus rhythm with 1st degree AV block Left axis deviation Incomplete right bundle branch block Poor R wave progression, consider anterior MD vs. lead placement vs. LVH Abnormal ECG When compared with ECG of 25-JUN-2021 06:30, (unconfirmed) Sinus rhythm has replaced Atrial flutter Minimal criteria for Anterior infarct are now Present Confirmed by Jonathan Coates ([id number]) on 06/25/2021 11:21:20 AM Referred By: Zachariah Duarte Confirmed By:Christian Coates
--- NOTE | 2021-06-25 11:25 | Anesthesiology Progress Note ---
Date of Service June 25, 2021 Anesthesia Post Procedure Vital Signs Vital Signs: Temp Pulse Pulse Pulse Resp BP BP 06/25/21 10:10 36.9 C 75 16 106/63 06/25/21 09:30 36.5 C 78 12 142/69 H 06/25/21 08:59 36.4 C L 74 14 127/75 06/25/21 08:45 72 06/25/21 08:31 36.3 C L 93 H 14 126/73 06/25/21 08:09 71 20 114/63 06/25/21 07:54 72 20 129/59 L 06/25/21 07:09 97 H 18 131/66 06/25/21 03:08 36.6 C 82 16 137/64 06/24/21 23:47 36.6 C 75 18 100/62 06/24/21 23:00 84 06/24/21 21:00 06/24/21 20:55 83 119/68 06/24/21 19:30 36.7 C 62 18 113/68 06/24/21 16:16 36.6 C 61 18 117/72 06/24/21 15:52 61 Pulse Ox Pulse Ox 06/25/21 10:10 97 06/25/21 09:30 98 06/25/21 08:59 96 06/25/21 08:45 06/25/21 08:31 98 06/25/21 08:09 99 06/25/21 07:54 100 06/25/21 07:09 95 06/25/21 03:08 91 06/24/21 23:47 91 06/24/21 23:00 06/24/21 21:00 91 06/24/21 20:55 06/24/21 19:30 94 06/24/21 16:16 96 06/24/21 15:52 Transfer of Care Handoff Completed per policy Notes Mental Status: alert / awake / arousable and participated in evaluation Patient Amnestic to Procedure: Yes Nausea / Vomiting: adequately controlled Pain: adequately controlled Airway Patency, RR, SpO2: stable & adequate BP & HR: stable & adequate Hydration State: stable & adequate Anesthetic Complications: no major complications apparent and Pt Satisfied with anesthetic care
--- NOTE | 2021-06-25 11:41 | Pharmacy Report ---
Pharmacy Glycemic Short Note 2 - Date of Service June 25, 2021 - Glycemic Short BSG Results (Last 24 hours): 06/24/21 06/24/21 06/24/21 12:01 15:44 20:27 Glucose POC Glucose 220 H 101 H 66 L* 06/24/21 06/24/21 06/24/21 20:28 20:49 21:04 Glucose POC Glucose 65 L* 60 L* 92 06/25/21 06/25/21 06/25/21 02:30 05:44 07:14 Glucose 117 H POC Glucose 125 H 126 H 06/25/21 11:01 Glucose POC Glucose 192 H OUTPATIENT ANTIDIABETIC REGIMEN (per patient report 06/24/21): * NPH 36 units SC AM + 25 units SC PM * Novolin R 15 units SC with breakfast, lunch, and dinner - of note however, he claims that he only eats two meals per day on average * 7.0% 06/24/21 ASSESSMENT: 06/25 * Patient received total of 57 units of insulin yesterday, of which 37 units were NPH * BSGs trending down at HS time yesterday, treated per hypoglycemia protocol - Plan to eliminate evening dose NPH and also loosen CR today * NPO this AM for cardioversion - morning NPH given later this AM 06/24 * 75 yo M admitted from outpatient cardiology office today secondary to dyspnea on exertion and new onset a flutter. Outpatient records indicate patient is a type 1 diabetic but our records indicate type 2. I spoke with patient today and he claims he is a type 2 diabetic first diagnosed during his hospital admit for cardiac intervention at [facility]. * Fasting BSG at goal this AM, FBS = 129, after having received only 36 units NPH yesterday AM. Will continue same dose however will split BID and give 2/3 dose in AM and 1/3 dose in PM. * Novolog dosing parameters are reasonable starting points for someone reported to require ~100 units per day in outpt setting PLAN FOR INPATIENT GLYCEMIC CONTROL: * Basal insulin - decrease * NPH 25 units SC w/ breakfast * Bolus insulin - loosen * NovoLog per scale ACHS * Goal Range: Low 110 mg/dL - High 140 mg/dL * Correction Factor: 20 mg/dL/unit * Nutritional / Prandial insulin per carb ratio of 1 unit per 7 grams CHO consumed PLAN FOR DISCHARGE: * A1c 7% - goal <7% * Reasonable to continue home diabetes regimen on discharge as long as patient not experiencing frequent hypo/hyperglycemia
--- NOTE | 2021-06-25 13:41 | Hospitalist Progress Note ---
Date of Service June 25, 2021 Assessment & Plan (1) CHF (congestive heart failure): Plan: Exertional shortness of breath for the last 7 days Chest x-ray evidence of pulmonary congestion and new onset a flutter with variable block Has 1+ edema bilaterally Will give 40 mg Lasix IV x1 and decide further Lasix tomorrow Appreciate cardiology input and recommendation Echo of the heart did not show any significant findings and the EF was 55 to 60%. LV is moderately dilated. Aortic sclerosis without stenosis. Moderate atherosclerotic plaques in the ascending aorta Denies any symptoms of shortness of breath at rest Condition has improved a lot and will be discharged home this afternoon Cellulitis of the left leg Keflex 500 mg 3 times daily for 7 days was prescribed (2) Atrial flutter: Plan: Noted to be a flutter with variable block and the rate is controlled Started on low-dose heparin without bolus after discussion pros and cons with heparin We will get serial cardiac enzymes to rule out any ACS Continue beta-ning Serial cardiac enzymes have been negative for any ACS and EKG did not show any significant change Has been on heparin and will be put on Eliquis on discharge HEAVENLY tomorrow and cardioversion tomorrow Status post HEAVENLY cardioversion and remained in sinus rhythm Appreciate cardiology input and recommendation Will be discharged home on Eliquis and Plavix but no aspirin (3) CAD (coronary artery disease): Plan: History of CAD and status post CABG No acute chest pain (4) COPD (chronic obstructive pulmonary disease): Plan: History of COPD and sleep apnea Has been using oxygen at nighttime (5) Diabetes mellitus, type II: Plan: We will put him on sliding scale insulin coverage (6) VENICE (obstructive sleep apnea): Plan: Uses CPAP/BiPAP at night with oxygen Continue BiPAP with home setting (7) PAD (peripheral artery disease): Plan: No acute symptoms (8) AAA (abdominal aortic aneurysm): Plan: Denies any abdominal pain (9) HLD (hyperlipidemia): Plan: Continue statin (10) HTN (hypertension): Plan: Blood pressure remains on the upper side Continue home blood pressure medication (11) GERD (gastroesophageal reflux disease): Plan: Continue PPI DVT prophylaxis Intravenous heparin CODE STATUS Full Admission and Anticipated Discharge Date Admission Date: June 23, 2021 Subjective 06/24/2021 The patient was seen and examined in emergency room-he has been waiting to go up Has been feeling much better Denies any symptoms of palpitation and/or shortness of breath 06/25/2021 The patient was seen and examined in telemetry unit He is status post HEAVENLY cardioversion and has been doing fine Denies any cardiac symptoms Has left leg redness with a spreading cellulitis Review of Systems Review of Systems: All systems reviewed and are unremarkable except as noted below Respiratory: Shortness of breath on exertion Physical Exam Physical Exam: Lying in bed with minimal shortness of breath Constitutional: well developed, well nourished, + ill appearing and + obese Eyes: PERRL, conjunctivae normal, anicteric sclerae ENMT: external ear and nose normal, oropharynx normal Neck: trachea midline, no thyromegaly Respiratory: + respiratory distress (Minimal shortness of breath at rest); no cough Auscultation: + diminished lung sounds and + crackles (Minimal crackles at the bases) Cardiovascular: Rate/Rhythm: + irregularly irregular; not tachycardic Heart Sounds: normal S1, normal S2 and + murmur (2/6 ESM over precordium) Extremities: + edema (1+ edema bilaterally) Gastrointestinal (Abdomen): Inspection/Auscultation: normal bowel sounds; abdomen not distended Percussion/Palpation: abdomen soft; abdomen nontender Musculoskeletal: Left lower leg swelling with redness and increased local temperature and tenderness Neurologic: Alert, awake and oriented x3. No focal sensory or motor deficit appreciated Psychiatric: A+Ox3, euthymic affect Lymphatic: no cervical or axillary lymphadenopathy Results & Data Results & Data ([facility]) Vital Signs (Past 12 Hours) Vital Signs Temp Pulse Pulse Pulse Resp BP BP 06/25/21 10:10 36.9 C 75 16 106/63 06/25/21 09:30 36.5 C 78 12 142/69 H 06/25/21 08:59 36.4 C L 74 14 127/75 06/25/21 08:45 72 06/25/21 08:31 36.3 C L 93 H 14 126/73 06/25/21 08:09 71 20 114/63 06/25/21 07:54 72 20 129/59 L 06/25/21 07:09 97 H 18 131/66 06/25/21 03:08 36.6 C 82 16 137/64 Pulse Ox 06/25/21 10:10 97 06/25/21 09:30 98 06/25/21 08:59 96 06/25/21 08:45 06/25/21 08:31 98 06/25/21 08:09 99 06/25/21 07:54 100 06/25/21 07:09 95 06/25/21 03:08 91 Laboratory Results Short CBC 06/25/21 Range/Units 05:44 WBC 6.12 (4.8-10.8) K/uL Hgb 12.0 L (14.0-18.0) g/dL Hct 37.0 L (42-52) % Plt Count 156 (130-400) K/uL BMP 06/25/21 05:44 Sodium 134 L Potassium 3.8 Chloride 101 Carbon Dioxide 28 BUN 20 H Creatinine 1.18 Glucose 117 H Calcium 8.3 L Medications Administered Current Inpatient Medications Acetaminophen (Acetaminophen 325 Mg Tab) 650 mg PO Q4H PRN PRN Reason: Pain or Fever Stop: 07/23/21 20:56 Apixaban (Apixaban 5 Mg Tablet) 5 mg PO BID LYNDA Stop: 07/24/21 20:59 Last Admin: 06/25/21 09:24 Dose: 5 mg Documented by: Aspirin (Aspirin 81 Mg Chew) 81 mg PO QAM [facility] Stop: 07/24/21 08:59 Last Admin: 06/25/21 09:23 Dose: 81 mg Documented by: Atorvastatin Calcium (Atorvastatin 40 Mg Tab) 80 mg PO HS [facility] Stop: 07/23/21 21:59 Last Admin: 06/24/21 20:58 Dose: 80 mg Documented by: Cephalexin HCl (Cephalexin 500 Mg Cap) 500 mg PO TID LYNDA Stop: 07/02/21 13:59 Clopidogrel Bisulfate (Clopidogrel Bisulfate 75 Mg Tab) 75 mg PO QAM LYNDA Stop: 07/24/21 08:59 Last Admin: 06/25/21 09:24 Dose: 75 mg Documented by: Dextrose (Dextrose 50% 50 Ml Syringe) 25 - 50 ml IV UD PRN; Protocol PRN Reason: Hypoglycemia Protocol Stop: 07/23/21 20:56 Donepezil HCl (Donepezil Hcl 10 Mg Tab) 10 mg PO HS LYNDA Stop: 07/23/21 21:59 Last Admin: 06/24/21 20:57 Dose: 10 mg Documented by: Gabapentin (Gabapentin 600 Mg Tab) 600 mg PO BID LYNDA Stop: 07/23/21 21:59 Last Admin: 06/25/21 09:23 Dose: 600 mg Documented by: Glucagon (Glucagon For Inj 1 Mg Vial) 1 mg SQ UD PRN; Protocol PRN Reason: Hypoglycemia Protocol Stop: 07/23/21 20:56 Glucose (Glucose 10 Tabs/Tube) 4 - 8 tabs PO UD PRN; Protocol PRN Reason: Hypoglycemia Protocol Stop: 07/23/21 20:56 Glucose (Glucose 40% Gel 15 Gm Tube) 15 - 30 gm PO UD PRN; Protocol PRN Reason: Hypoglycemia Protocol Stop: 07/23/21 20:56 Guaifenesin (Guaifenesin 600 Mg Tabcr) 600 mg PO Q12H PRN PRN Reason: cough and congestion Stop: 07/23/21 20:56 Insulin Aspart (Insulin Aspart 100 Units/Ml 3 Ml Pen) 0 units SC ACHS [facility]; Protocol Stop: 07/23/21 21:44 Last Admin: 06/25/21 11:48 Dose: 7 units Documented by: Insulin Human NPH (Insulin Human Nph) 25 units SC QDB [facility]; Protocol Stop: 07/25/21 11:14 Last Admin: 06/25/21 11:48 Dose: 25 units Documented by: Isosorbide Mononitrate (Isosorbide [place] Extended Rel 60 Mg Tabcr) 60 mg PO BID [facility] Stop: 07/23/21 21:59 Last Admin: 06/25/21 09:23 Dose: 60 mg Documented by: Lisinopril (Lisinopril 5 Mg Tab) 5 mg PO [facility] Stop: 07/23/21 21:59 Last Admin: 06/24/21 20:57 Dose: 5 mg Documented by: Magnesium Oxide (Magnesium Oxide 400 Mg Tab) 400 mg PO HS [facility] Stop: 07/23/21 21:59 Last Admin: 06/24/21 20:58 Dose: 400 mg Documented by: Metoprolol Tartrate (Metoprolol Tartrate 100 Mg Tab) 100 mg PO BID [facility] Stop: 07/23/21 21:59 Last Admin: 06/25/21 09:23 Dose: 100 mg Documented by: Miscellaneous (Carbohydrates For Hypoglycemia ) 15 - 30 gm PO UD PRN PRN Reason: Hypoglycemia Protocol Stop: 07/23/21 20:56 Last Admin: 06/24/21 20:42 Dose: 15 gm Documented by: Miscellaneous Information (Pharmacy Glycemic Mgmt Consult) 1 ea N/A UD PRN; Protocol PRN Reason: Consult Stop: 07/23/21 20:54 Nitroglycerin (Nitroglycerin Sl 0.4 Mg/Tab Tab) 0.4 mg SL Q5M PRN PRN Reason: Chest Pain Stop: 07/23/21 20:56 Nortriptyline HCl (Nortriptyline Hcl 25 Mg Cap) 75 mg PO HS [facility] Stop: 07/23/21 21:59 Last Admin: 06/24/21 20:56 Dose: 75 mg Documented by: Ondansetron HCl (Ondansetron Inj 2 Mg/Ml 2 Ml Vial) 4 mg IV Q6H PRN PRN Reason: Nausea Stop: 07/23/21 20:56 Pantoprazole Sodium (Pantoprazole 40 Mg Tab) [facility] [place] [facility] [place]: 07/24/21 08:59 Last Admin: 06/25/21 09:23 Dose: 40 mg Documented by: Polyethylene Glycol (Polyethylene (Miralax) 17 Gm Pack) 17 gm PO DAILY PRN PRN Reason: Constipation Stop: 07/23/21 20:56 Trazodone HCl (Trazodone Hcl 100 Mg Tab) 100 mg PO HS LYNDA Stop: 07/23/21 21:59 Last Admin: 06/24/21 20:56 Dose: 100 mg Documented by:
[2021-06-25] MEDS ORDERED: cephALEXin 500 MG CAP PO SCH (14:00)
--- NOTE | 2021-06-25 15:16 | Cardiology Progress Note ---
Date of Service June 25, 2021 Assessment & Plan (1) New onset atrial flutter: Plan: Patient presented with easy fatigability, dyspnea on exertion, likely due to new onset atrial flutter. He underwent transesophageal echocardiogram guided direct-current cardioversion this morning and tolerated the procedure well. He has been found to have mild erythema of the left lower leg, perhaps related to a subtle cellulitis. Please the patient is doing well, and can be discharged with plans to complete a course of oral antibiotics. He is afebrile, and has no leukocytosis. Recommend discharge on new medication of Eliquis 5 mg twice daily for stroke prophylaxis. Given his history of chronic coronary disease with multiple complex coronary inventions he had been on chronic dual antiplatelet therapy with aspirin and clopidogrel. We will discontinue aspirin, and continue chronic clopidogrel. In summary, discharge on Eliquis and clopidogrel without aspirin. Continue current hospital cardiac medications. Admission and Anticipated Discharge Date Admission Date: June 23, 2021 Subjective Patient seen in cardiology follow-up, having had transesophageal echocardiogram guided direct-current cardioversion this morning. He remains in sinus rhythm in the range of 7080 bpm. Post procedure EKG revealed sinus rhythm at 72 bpm with OH interval of 206 ms, QT interval 464 ms. Physical Exam Physical Exam: Temp Pulse Resp BP Pulse Ox 36.9 C 93 H 16 106/63 97 06/25/21 14:08 06/25/21 14:08 06/25/21 14:08 06/25/21 14:08 06/25/21 14:08 Constitutional: WD/WN, vitals as above Respiratory: normal respiratory effort, lungs clear to auscultation Cardiovascular: RRR, no murmur, no edema Gastrointestinal (Abdomen): normal bowel sounds, soft, nontender, no hepatosplenomegaly Skin: Mild erythema at the distal portion of the left lower extremity consiste nt with cellulitis. Neurologic: PERRL, EOMI, accommodation nl, no face palsy, no dysarthria Results & Data ([facility]) Vital Signs (Past 12 Hours) Vital Signs Temp Pulse Pulse Pulse Resp BP BP 06/25/21 14:08 36.9 C 93 H 75 16 126/73 106/63 06/25/21 10:10 36.9 C 75 16 106/63 06/25/21 09:30 36.5 C 78 12 142/69 H 06/25/21 08:59 36.4 C L 74 14 127/75 06/25/21 08:45 72 06/25/21 08:31 36.3 C L 93 H 14 126/73 06/25/21 08:09 71 20 114/63 06/25/21 07:54 72 20 129/59 L 06/25/21 07:09 97 H 18 131/66 Pulse Ox 06/25/21 14:08 97 06/25/21 10:10 97 06/25/21 09:30 98 06/25/21 08:59 96 06/25/21 08:45 06/25/21 08:31 98 06/25/21 08:09 99 06/25/21 07:54 100 06/25/21 07:09 95 Laboratory Results Coagulation 06/24/21 Range/Units 15:29 APTT 62.3 H* (21.0-31.0) Seconds CBC 06/25/21 Range/Units 05:44 WBC 6.12 (4.8-10.8) K/uL RBC 4.11 L (4.7-6.1) M/uL Hgb 12.0 L (14.0-18.0) g/dL Hct 37.0 L (42-52) % Plt Count 156 (130-400) K/uL Comprehensive Metabolic Panel 06/25/21 Range/Units 05:44 Sodium 134 L (136-145) mmol/L Potassium 3.8 (3.5-5.1) mmol/L Chloride 101 (98-107) mmol/L Carbon Dioxide 28 (21-32) mmol/L BUN 20 H (7-18) mg/dl Creatinine 1.18 (0.6-1.4) mg/dl Glucose 117 H (70-99) mg/dl Calcium 8.3 L (8.5-10.1) mg/dl Intake and Output 06/25/21 06/25/21 06/25/21 06:59 14:59 22:59 Intake Total 240 / 993.733 360 / 360 Balance 240 / 993.733 360 / 360 Intake: Oral 240 / 600 360 / 360 Other: Weight 98.7 kg 98.7 kg Weight Measurement Method Built in [facility] Patient Weight 06/26/21 06:59 Weight 98.7 kg
--- NOTE | 2021-06-26 10:54 | Discharge Summary ---
Date of Service June 26, 2021 Admission HPI Per Admitting Provider He is a 75 years old male with significant complicated past medical history including CAD status post CABG, abdominal aortic aneurysm, peripheral artery disease, VENICE on CPAP/BiPAP with oxygen at home, hypertension, COPD, type 2 diabetes, hyperlipidemia and history of tobacco abuse apparently has been complaining of exertional shortness of breath for the last 1 week. He denies any fever and/or chills associated with it and denies any cough. No palpitation or chest pain. He has not gained any weight but has minimal bilateral leg swelling. He denies any nausea and or vomiting or any problem with urine and or bowel habit. He was noted to be hypoxic on arrival and chest x-ray did show pulmonary congestion without overt pulmonary edema and also he was noted to have a flutter with controlled rate. He was admitted to telemetry unit for continuation of care and heparin was administered after discussion with him the risk and benefit. Admission Exam Per Admitting Provider Physical Exam: Lying in bed with minimal shortness of breath Constitutional: well developed, well nourished, + ill appearing and + obese Eyes: PERRL, conjunctivae normal, anicteric sclerae ENMT: external ear and nose normal, oropharynx normal Neck: trachea midline, no thyromegaly Respiratory: + respiratory distress (Minimal shortnes s of breath at rest); no cough Auscultation: + diminished lung sounds and + crackles (Minimal crackles at the bases) Cardiovascular: Rate/Rhythm: + irregularly irregular; not tachycardic Heart Sounds: normal S1, normal S2 and + murmur (2/6 ESM over precordium) Extremities: + edema (1+ edema bilaterally) Gastrointestinal (Abdomen): Inspection/Auscultation: normal bowel sounds; abdomen not distended Percussion/Palpation: abdomen soft; abdomen nontender Musculoskeletal: No acute arthritis in any joint Neurologic: Alert, awake and oriented x3. Generally weak but no focal sensory or motor deficit appreciated Psychiatric: A+Ox3, euthymic affect Lymphatic: no cervical or axillary lymphadenopathy Principal Diagnosis New onset atrial flutter, CHF likely diastolic, CAD, VENICE on CPAP/BiPAP, type 2 diabetes Discharge Exam Lying in bed with minimal shortness of breath Constitutional well developed, well nourished, + ill appearing and + obese Eyes PERRL, conjunctivae normal, anicteric sclerae ENMT external ear and nose normal, oropharynx normal Neck trachea midline, no thyromegaly Respiratory + respiratory distress (Minimal shortness of breath at rest); no cough Auscultation: + diminished lung sounds and + crackles (Minimal crackles at the bases) Cardiovascular Rate/Rhythm: + irregularly irregular; not tachycardic Heart Sounds: normal S1, normal S2 and + murmur (2/6 ESM over precordium) Extremities: + edema (1+ edema bilaterally) Gastrointestinal (Abdomen) Inspection/Auscultation: normal bowel sounds; abdomen not distended Percussion/Palpation: abdomen soft; abdomen nontender Psychiatric A+Ox3, euthymic affect Lymphatic no cervical or axillary lymphadenopathy Discharge Data Allergies Allergy/AdvReac Type Severity Reaction Status Date / Time fentanyl AdvReac Mild vomiting Verified 06/23/21 16:29 oxycodone AdvReac Mild vomiting Verified 06/23/21 16:29 propoxyphene AdvReac Mild Nausea - Verified 06/23/21 18:44 Darvocet Consultations 06/23/21 17:38 ED Decision to Admit Stat 06/23/21 20:57 Consult Cardiology Routine 06/24/21 16:04 Consult Anesthesiology Routine Procedures Performed Operation Date: 06/25/21 07:15 Actual Procedures p Echo Transesophageal - Marco Antonio Joseph DO s Echo Color Flow - Marco Antonio Joseph DO Hospital Course (1) CHF (congestive heart failure): Exertional shortness of breath for the last 7 days Chest x-ray evidence of pulmonary congestion and new onset a flutter with variable block Has 1+ edema bilaterally Will give 40 mg Lasix IV x1 and decide further Lasix tomorrow Appreciate cardiology input and recommendation Echo of the heart did not show any significant findings and the EF was 55 to 6 0%. LV is moderately dilated. Aortic sclerosis without stenosis. Moderate atherosclerotic plaques in the ascending aorta Denies any symptoms of shortness of breath at rest Condition has improved a lot and will be discharged home this afternoon Cellulitis of the left leg Keflex 500 mg 3 times daily for 7 days was prescribed (2) Atrial flutter: Noted to be a flutter with variable block and the rate is controlled Started on low-dose heparin without bolus after discussion pros and cons with heparin We will get serial cardiac enzymes to rule out any ACS Continue beta-ning Serial cardiac enzymes have been negative for any ACS and EKG did not show any significant change Has been on heparin and will be put on Eliquis on discharge HEAVENLY tomorrow and cardioversion tomorrow Status post HEAVENLY cardioversion and remained in sinus rhythm Appreciate cardiology input and recommendation Will be discharged home on Eliquis and Plavix but no aspirin (3) CAD (coronary artery disease): History of CAD and status post CABG No acute chest pain (4) COPD (chronic obstructive pulmonary disease): History of COPD and sleep apnea Has been using oxygen at nighttime (5) Diabetes mellitus, type II: We will put him on sliding scale insulin coverage (6) VENICE (obstructive sleep apnea): Uses CPAP/BiPAP at night with oxygen Continue BiPAP with home setting (7) PAD (peripheral artery disease): No acute symptoms (8) AAA (abdominal aortic aneurysm): Denies any abdominal pain (9) HLD (hyperlipidemia): Continue statin (10) HTN (hypertension): Blood pressure remains on the upper side Continue home blood pressure medication (11) GERD (gastroesophageal reflux disease): Continue PPI DVT prophylaxis Intravenous heparin CODE STATUS Full Total Time Total Time Spent Total Time Spent (In Minutes): 35 minutes Discharge Plan Discharge Items Patient Disposition: Home - Self-Care Reason For Visit: VOLUME OVERLOAD, NEW ONSET RATE ONTROLLED A FLUTTE Discharge Diagnosis: New onset atrial flutter, CHF likely diastolic, CAD, VENICE on CPAP/BiPAP, type 2 diabetes Condition on Discharge: Good Activity: Resume your previous activity Non-emergency contact: Primary Care Provider Call non-emergency contact if: you have any medication questions and your symptoms worsen Follow-up/Referrals: Zachariah Duarte DO [Primary Care Provider] - (Date & Time 07/01/2021 11:20 AM Provider Zachariah Duarte DO Department Family [facility] ) Diet: Carb Consistent or DM2 and Heart Healthy Fluids: 1500ml (6 cups) Addtl Attending Provider Instructions: Please take precautions to avoid falls Your aspirin has been stopped Eliquis has been started and needs to be continued Antibiotic should be continued for 7 days in total Pending Studies at Discharge: No Stand-Alone Forms: My [employer], Smoking Cessation Medications and DC Order Prescriptions: New Eliquis 5 mg Tablet 5 mg PO BID Qty: 30 RF: 0 cephalexin 500 mg Capsule 500 mg PO TID Qty: 20 RF: 0 Continued atorvastatin 80 mg Tablet 80 mg PO HS RF: 0 clopidogrel 75 mg Tablet 75 mg PO QAM RF: 0 pantoprazole 40 mg Tablet,Delayed Release (Dr/Ec) 40 mg PO QAM RF: 0 magnesium oxide 400 mg magnesium Tablet 400 mg PO HS RF: 0 metoprolol tartrate 100 mg Tablet 100 mg PO BID RF: 0 donepezil [Aricept] 10 mg Tablet 10 mg PO HS RF: 0 nitroglycerin [Nitrostat] 0.4 mg Tablet, Sublingual 0.4 mg sublingual UD MDD 3 doses in 15 minutes PRN (Reason: Chest Pain) RF: 0 gabapentin 600 mg Tablet 600 mg PO BID RF: 0 isosorbide mononitrate 60 mg Tablet Extended Release 24 Hr 60 mg PO AMHS RF: 0 lisinopril 10 mg Tablet 5 mg PO HS RF: 0 pioglitazone [Actos] 30 mg Tablet 30 mg PO QAM RF: 0 guaifenesin [Mucinex] 600 mg Tablet Extended Release 12hr 600 mg PO Q12H PRN (Reason: cough and congestion) RF: 0 nortriptyline 75 mg Capsule 75 mg PO HS RF: 0 Novolin R Regular U-100 Insuln 100 unit/mL solution 10 unit subcut QDD RF: 0 Novolin R Regular U-100 Insuln 100 unit/mL solution 15 unit subcut QAM RF: 0 Novolin R Regular U-100 Insuln 100 unit/mL solution 15 unit subcut QDL RF: 0 Novolin N NPH U-100 Insulin 100 unit/mL suspension 36 unit subcut QAM RF: 0 Novolin N NPH U-100 Insulin 100 unit/mL suspension 25 unit subcut PM RF: 0 acetaminophen [Tylenol Extra Strength] 500 mg Tablet 1,000 mg PO BID PRN (Reason: Pain) RF: 0 hydrochlorothiazide 12.5 mg Tablet 12.5 mg PO 3XWK PRN (Reason: Unknown) RF: 0 trazodone 100 mg tablet 100 mg PO HS RF: 0 Discontinued aspirin [Aspirin Childrens] 81 mg Tablet,Chewable 81 mg PO QAM RF: 0 Discharge Orders: Discharge Order (Routine); Ordered 06/25/21 Ordered By: Myron Bergman/Other Patient Handouts: A1C, Managing Type 2 Diabetes Admission Data Admit Date/Time: 06/23/21 18:17 Attending Provider: Myron Stafford Admit Provider: Myron Stafford Primary Care Provider: Zachariah Duarte Other Providers: Myron Stafford ; Marco Antonio Joseph ; Kanu Ding Other Interventions: Discharge Summary Assessment (RN) Last Done: 06/25/21 14:08
== END 2021-06-25 15:00 | disposition home or self-care (01) | DRG 309 ==
LOC: ED 15:07 → EDINP 18:17 → 2S 20:55

== ENCOUNTER 2021-10-21 03:04 | Inpatient (IN) ==
--- NOTE | 2021-10-21 03:15 | Emergency Department Note ---
Impression & Plan Hypoxia ADMIT ED Provider Note HPI: The patient is a 76-year-old gentleman with history of coronary artery disease, status post CABG, history of atrial fibrillation, on Eliquis, presents the emergency department with a chief complaint of shortness of breath and chest pa in. Patient states he has felt short of breath over the past 1 to 2 days. States this evening he also developed a substernal chest discomfort that is now resolved. Patient arrives via EMS, he was given sublingual nitroglycerin prior to arrival and this did seem to help with his pain. On arrival to the ED the patient is noted to be hypoxic at 87% on room air, he was placed on supplemental oxygen with good improvement. ROS: - cardio: Transient chest pain *10 point review systems was conducted and is otherwise negative unless stated above *Outpatient medications and allergy history reviewed PE: General: Alert, NAD HEENT: Normocephalic, atraumatic Eyes: Extraocular eye movement is intact, no scleral erythema Pulmonary: Clear to auscultation bilaterally, no wheezing Cardio: Regular rate and rhythm GI: Abdomen is soft, nontender : No suprapubic tenderness MSK: No evidence of trauma or malformation of the extremities, no edema Skin: No evidence of rash Neuro: Alert, no focal deficits Psychiatric: Cooperative pvc monitor: - An order was placed for continuous cardiac monitoring - Patient was noted to be in sinus rhythm with rate of 80 EKG: Rate: 95 Rhythm: Sinus rhythm Intervals: DE interval prolonged at 222 ms, otherwise within normal limits ST changes: No ST elevation Time: 0312 CTA CHEST: No evidence of pulmonary emboli or acute cardiopulmonary process. Radiologist: Mateusz Thomason MD Medical Decision Making: The patient is a 76-year-old gentleman with history of atrial fibrillation, paroxysmal, on anticoagulation, CHF, history of coronary artery disease with CABG, presents emergency department with a chief complaint of chest discomfort. Patient states this pain had been ongoing but intermittent in nature over the past 1 to 2 days. On arrival here to the ED he states he is no longer symptomatic from the standpoint of chest pain. States he does have some mild shortness of breath, he is noted to be hypoxic at 85% on room air and was placed on supplemental oxygen with good improvement. Patient states he does wear a CPAP at night but does not normally wear oxygen during the day. IV was established, lab work obtained, patient's troponin is slightly elevated at 0.30, he does have a history of troponin elevation with NSTEMI however this did downtrend within normal limits on his last result and is now elevated again at 0.3. Patient was given aspirin in the ED, he is currently asymptomatic, will hold on heparin drip. Lab work otherwise shows hyperglycemia, no evidence of acute kidney injury, no evidence of anion gap elevation. His EKG does not show any acute ischemic changes. CT angiography of the chest was obtained given the patient's hypoxia and this does not show any evidence of pulmonary emboli, no acute cardiopulmonary process is noted. On my reassessment the patient is resting comfortably in bed on 2 L nasal cannula oxygen. Case was discussed with the on-call hospitalist for [facility] [place][note 2], Dr. Diaz, and the patient was admitted in stable condition. * CRITICAL CARE TIME: 33 minutes -Stabilization of hypoxia with oxygen saturations less than 90% on room air requiring supplemental oxygen for improvement, time spent at bedside, interpretation of diagnostic studies, discussion with other physicians and rudolph gasca of admission for hypoxia and elevated troponin Diagnosis: 1. Hypoxia 2. Elevated troponin 3. Chest pain, transient, history of coronary artery disease 4. 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 Brendon Royal at [facility] [place], [place] Surgical History (Updated 03/01/19 @ 12:50 by Kanu Dee DO) H/O angioplasty History of cardiac cath History of cataract surgery S/P triple vessel bypass Family History Other Diabetes Heart disease Stroke Social History Smoking Status: Never smoker Cigarettes Per Day: 2; Second Hand Exposure: No; Hx Alcohol Use: No Hx Substance Use: No Preferred Language: Urdu Communication Ability: Effective Home Lighting Adviser Required: No Beliefs That Will Affect Care: None Current Living Situation: Spouse Current Living Situation Comment: ranch home Feels Safe at Home: Yes Assistive Devices: CPAP and Glasses Allergies Allergies Allergy/AdvReac Type Severity Reaction Status Date / Time fentanyl AdvReac Mild vomiting Verified 06/23/21 16:29 oxycodone AdvReac Mild vomiting Verified 06/23/21 16:29 propoxyphene AdvReac Mild Nausea - Verified 06/23/21 18:44 Darvocet Home Meds Home Medications Medication Instructions Recorded Confirmed acetaminophen 500 mg tablet 1,000 mg PO BID PRN 03/01/19 06/23/21 (Tylenol Extra Strength) atorvastatin 80 mg tablet 80 mg PO HS 03/01/19 06/23/21 clopidogrel 75 mg tablet 75 mg PO QAM 03/01/19 06/23/21 donepezil 10 mg tablet (Aricept) 10 mg PO HS 03/01/19 06/23/21 gabapentin 600 mg tablet 600 mg PO BID 03/01/19 06/23/21 guaifenesin 600 mg tablet, 600 mg PO Q12H PRN 03/01/19 06/23/21 extended release 12 hr (Mucinex) hydrochlorothiazide 12.5 mg tablet 12.5 mg PO 3XWK PRN 03/01/19 06/23/21 insulin NPH isoph U-100 human 100 25 unit SUBCUT PM 03/01/19 06/23/21 unit/mL subcutaneous suspension (Novolin N NPH U-100 Insulin isophane) insulin NPH isoph U-100 human 100 36 unit SUBCUT QAM 03/01/19 06/23/21 unit/mL subcutaneous suspension (Novolin N NPH U-100 Insulin isophane) insulin regular human 100 unit/mL 10 unit SUBCUT QDD 03/01/19 06/23/21 injection solution (Novolin R Regular U-100 Insulin) insulin regular human 100 unit/mL 15 unit SUBCUT QAM 03/01/19 06/23/21 injection solution (Novolin R Regular U-100 Insulin) insulin regular human 100 unit/mL 15 unit SUBCUT QDL 03/01/19 06/23/21 injection solution (Novolin R Regular U-100 Insulin) isosorbide mononitrate 60 mg 60 mg PO AMHS 03/01/19 06/23/21 tablet,extended release 24 hr lisinopril 10 mg tablet 5 mg PO HS 03/01/19 06/23/21 magnesium oxide 400 mg PO HS 03/01/19 06/23/21 metoprolol tartrate 100 mg tablet 100 mg PO BID 03/01/19 06/23/21 nitroglycerin 0.4 mg sublingual 0.4 mg SUBLINGUAL UD PRN MDD 3 03/01/19 06/23/21 tablet (Nitrostat) doses in 15 minutes nortriptyline 75 mg capsule 75 mg PO HS 03/01/19 06/23/21 pantoprazole 40 mg tablet,delayed 40 mg PO QAM 03/01/19 06/23/21 release pioglitazone 30 mg tablet (Actos) 30 mg PO QAM 03/01/19 06/23/21 trazodone 100 mg tablet 100 mg PO HS 06/23/21 06/23/21 Previous Rx's Medication Instructions Recorded apixaban 5 mg tablet (Eliquis) 5 mg PO BID #30 tab 06/25/21 cephalexin 500 mg capsule 500 mg PO TID #20 cap 06/25/21 Results & Data (ED) Vital Signs Vital Signs - 24 hr 10/21/21 02:44 10/21/21 03:11 10/21/21 03:20 Temperature 37.6 C H Temperature Source Oral Pulse Rate 90 96 H 91 H Pulse Rate from SpO2 Sensor 94 H 92 H Respiratory Rate 22 31 H 27 H Respiratory Effort / Characteristics Non-Labored Respiratory Depth Normal Blood Pressure 185/74 H Blood Pressure Mean 111 Pulse Oximetry 87 L 100 99 Oxygen Delivery Method Nasal Cannula Oxygen Flow Rate 3 Sepsis Recent Fever Within 48 Hours No Sepsis New/Unexplained Change in Mental Status No Sepsis Action Taken by Nursing No Action Required Pulse Oximetry Post Tiitration 99 10/21/21 03:30 10/21/21 03:40 10/21/21 03:50 Temperature Temperature Source Pulse Rate 88 88 90 Pulse Rate from SpO2 Sensor 88 88 90 Respiratory Rate 20 22 21 Respiratory Effort / Characteristics Respiratory Depth Blood Pressure Blood Pressure Mean Pulse Oximetry 99 100 99 Oxygen Delivery Method Oxygen Flow Rate Sepsis Recent Fever Within 48 Hours Sepsis New/Unexplained Change in Mental Status Sepsis Action Taken by Nursing Pulse Oximetry Post Tiitration 10/21/21 04:00 10/21/21 04:10 10/21/21 04:20 Temperature Temperature Source Pulse Rate 88 87 89 Pulse Rate from SpO2 Sensor 88 88 Respiratory Rate 18 17 Respiratory Effort / Characteristics Respiratory Depth Blood Pressure Blood Pressure Mean Pulse Oximetry 99 95 Oxygen Delivery Method Oxygen Flow Rate Sepsis Recent Fever Within 48 Hours Sepsis New/Unexplained Change in Mental Status Sepsis Action Taken by Nursing Pulse Oximetry Post Tiitration 10/21/21 04:30 10/21/21 04:40 10/21/21 04:50 Temperature Temperature Source Pulse Rate 85 Pulse Rate from SpO2 Sensor 87 86 86 Respiratory Rate 20 Respiratory Effort / Characteristics Respiratory Depth Blood Pressure Blood Pressure Mean Pulse Oximetry 96 95 97 Oxygen Delivery Method Oxygen Flow Rate Sepsis Recent Fever Within 48 Hours Sepsis New/Unexplained Change in Mental Status Sepsis Action Taken by Nursing Pulse Oximetry Post Tiitration 10/21/21 05:00 Temperature Temperature Source Pulse Rate 80 Pulse Rate from SpO2 Sensor 84 Respiratory Rate Respiratory Effort / Characteristics Respiratory Depth Blood Pressure 162/52 H Blood Pressure Mean 88 Pulse Oximetry 95 Oxygen Delivery Method Oxygen Flow Rate Sepsis Recent Fever Within 48 Hours Sepsis New/Unexplained Change in Mental Status Sepsis Action Taken by Nursing Pulse Oximetry Post Tiitration Laboratory Data Result diagrams: 10/21/21 03:23 10/21/21 03:23 Lab Results 10/21/21 10/21/21 10/21/21 Range/Units 03:23 03:23 03:23 WBC 5.95 (4.8-10.8) K/uL RBC 3.99 L (4.7-6.1) M/uL Hgb 11.3 L (14.0-18.0) g/dL Hct 36.5 L (42-52) % MCV 91.5 (80-100) fL MCH 28.3 (25-34) pg MCHC 31.0 L (32-36) g/dL RDW Std Deviation 55.5 H (36.4-46.3) fL RDW Coeff of Geremias 16.4 H (11.5-14.5) % Plt Count 169 (130-400) K/uL MPV 10.4 (7.4-10.4) fL Immature Gran % (Auto) 1.5 % Neut % (Auto) 80.7 % Lymph % (Auto) 12.1 % [place] % (Auto) 4.7 % Eos % (Auto) 0.7 % Baso % (Auto) 0.3 % Neut # (Auto) 4.80 (1.4-6.5) K/uL Lymph # (Auto) 0.72 L (1.2-3.4) K/uL [place] # (Auto) 0.28 (0.11-0.59) K/uL Eos # (Auto) 0.04 (0-0.5) K/uL Baso # (Auto) 0.02 (0-0.2) K/uL Immature Gran # (Auto) 0.09 H (0.00-0.02) K/uL PT Cancelled INR Cancelled APTT Cancelled PTT Ratio Cancelled VBG pH (7.36-7.41) VBG pCO2 (38-50) mmHg VBG pO2 mmHg VBG HCO3 mmol/L VBG O2 Saturation % VBG Base Excess mEq/L Sodium 134 L (136-145) mmol/L Potassium 4.1 (3.5-5.1) mmol/L Chloride 101 (98-107) mmol/L Carbon Dioxide 25 (21-32) mmol/L Anion Gap 8 (3-11) BUN 25 H (6-23) mg/dl Creatinine 1.17 (0.6-1.4) mg/dl Est Cr Clr Drug Dosing 58.7 ml/min Est GFR ( Amer) 69.3 ml/min Est GFR (Non-Af Amer) 59.8 ml/min BUN/Creatinine Ratio 21.4 H (10-20) Glucose 323 H* (70-99(Fasting)) mg/dl Calcium 7.9 L (8.5-10.1) mg/dl Magnesium (1.7-2.4) mg/dl Total Bilirubin 1.0 (0.2-1.0) mg/dl AST 16 (13-39) U/L ALT 12 (7-52) U/L Alkaline Phosphatase 85 (34-104) U/L Troponin I 0.30 H* (0-0.04) ng/ml B-Natriuretic Peptide (0-100) pg/ml Total Protein 6.7 (6.0-8.3) gm/dl Albumin 3.8 (3.4-5.0) gm/dl Globulin 2.9 (2.5-4.0) gm/dl Albumin/Globulin Ratio 1.3 (0.9-2) Lipase 22 (11-82) U/L Procalcitonin (0-0.5) ng/ml SARS-CoV-2, RNA, NAAT (NEGATIVE) 10/21/21 10/21/21 10/21/21 Range/Units 03:23 03:23 03:23 WBC (4.8-10.8) K/uL RBC (4.7-6.1) M/uL Hgb (14.0-18.0) g/dL Hct (42-52) % MCV (80-100) fL MCH (25-34) pg MCHC (32-36) g/dL RDW Std Deviation (36.4-46.3) fL RDW Coeff of Geremias (11.5-14.5) % Plt Count (130-400) K/uL MPV (7.4-10.4) fL Immature Gran % (Auto) % Neut % (Auto) % Lymph % (Auto) % [place] % (Auto) % Eos % (Auto) % Baso % (Auto) % Neut # (Auto) (1.4-6.5) K/uL Lymph # (Auto) (1.2-3.4) K/uL [place] # (Auto) (0.11-0.59) K/uL Eos # (Auto) (0-0.5) K/uL Baso # (Auto) (0-0.2) K/uL Immature Gran # (Auto) (0.00-0.02) K/uL PT INR APTT PTT Ratio VBG pH (7.36-7.41) VBG pCO2 (38-50) mmHg VBG pO2 mmHg VBG HCO3 mmol/L VBG O2 Saturation % VBG Base Excess mEq/L Sodium (136-145) mmol/L Potassium (3.5-5.1) mmol/L Chloride (98-107) mmol/L Carbon Dioxide (21-32) mmol/L Anion Gap (3-11) BUN (6-23) mg/dl Creatinine (0.6-1.4) mg/dl Est Cr Clr Drug Dosing ml/min Est GFR ( Amer) ml/min Est GFR (Non-Af Amer) ml/min BUN/Creatinine Ratio (10-20) Glucose (70-99(Fasting)) mg/dl Calcium (8.5-10.1) mg/dl Magnesium 2.0 (1.7-2.4) mg/dl Total Bilirubin (0.2-1.0) mg/dl AST (13-39) U/L ALT (7-52) U/L Alkaline Phosphatase (34-104) U/L Troponin I (0-0.04) ng/ml B-Natriuretic Peptide (0-100) pg/ml Total Protein (6.0-8.3) gm/dl Albumin (3.4-5.0) gm/dl Globulin (2.5-4.0) gm/dl Albumin/Globulin Ratio (0.9-2) Lipase (11-82) U/L Procalcitonin 0.50 (0-0.5) ng/ml SARS-CoV-2, RNA, NAAT NEGATIVE (NEGATIVE) 10/21/21 10/21/21 10/21/21 Range/Units 03:49 03:49 03:49 WBC (4.8-10.8) K/uL RBC (4.7-6.1) M/uL Hgb (14.0-18.0) g/dL Hct (42-52) % MCV (80-100) fL MCH (25-34) pg MCHC (32-36) g/dL RDW Std Deviation (36.4-46.3) fL RDW Coeff of Geremias (11.5-14.5) % Plt Count (130-400) K/uL MPV (7.4-10.4) fL Immature Gran % (Auto) % Neut % (Auto) % Lymph % (Auto) % [place] % (Auto) % Eos % (Auto) % Baso % (Auto) % Neut # (Auto) (1.4-6.5) K/uL Lymph # (Auto) (1.2-3.4) K/uL [place] # (Auto) (0.11-0.59) K/uL Eos # (Auto) (0-0.5) K/uL Baso # (Auto) (0-0.2) K/uL Immature Gran # (Auto) (0.00-0.02) K/uL PT 10.5 INR 1.0 APTT 34.0 H PTT Ratio 1.3 VBG pH 7.44 H (7.36-7.41) VBG pCO2 42 (38-50) mmHg VBG pO2 41 mmHg VBG HCO3 28 mmol/L VBG O2 Saturation 73.8 % VBG Base Excess 3.3 mEq/L Sodium (136-145) mmol/L Potassium (3.5-5.1) mmol/L Chloride (98-107) mmol/L Carbon Dioxide (21-32) mmol/L Anion Gap (3-11) BUN (6-23) mg/dl Creatinine (0.6-1.4) mg/dl Est Cr Clr Drug Dosing ml/min Est GFR ( Amer) ml/min Est GFR (Non-Af Amer) ml/min BUN/Creatinine Ratio (10-20) Glucose (70-99(Fasting)) mg/dl Calcium (8.5-10.1) mg/dl Magnesium (1.7-2.4) mg/dl Total Bilirubin (0.2-1.0) mg/dl AST (13-39) U/L ALT (7-52) U/L Alkaline Phosphatase (34-104) U/L Troponin I (0-0.04) ng/ml B-Natriuretic Peptide 338 H (0-100) pg/ml Total Protein (6.0-8.3) gm/dl Albumin (3.4-5.0) gm/dl Globulin (2.5-4.0) gm/dl Albumin/Globulin Ratio (0.9-2) Lipase (11-82) U/L Procalcitonin (0-0.5) ng/ml SARS-CoV-2, RNA, NAAT (NEGATIVE) Administered Medications Discontinued Medications Acetaminophen (Acetaminophen 325 Mg Tab) 650 mg PO NOW STA Stop: 10/21/21 05:04 Last Admin: 10/21/21 06:14 Dose: Not Given Documented by: [id number] Aspirin (Aspirin Chew 324 Mg) 324 mg PO NOW STA Stop: 10/21/21 06:10 Last Admin: 10/21/21 06:14 Dose: Not Given Documented by: [id number] Calcium Gluconate () 1,000 mg in 60 mls @ 240 mls/hr IV NOW STA Stop: 10/21/21 05:19 Last Infusion: 10/21/21 06:35 Dose: 0 mls/hr Documented by: [id number] Admin: 10/21/21 06:10 Dose: 240 mls/hr Documented by: [id number] Sodium Chloride (Nss 1000ml) 500 mls @ 999 mls/hr IV .Q31M ONE Stop: 10/21/21 06:42 Last Admin: 10/21/21 06:45 Dose: Not Given Documented by: [id number] Ioversol (Optiray 320 125ml) 125 ml IV ONCE ONE Stop: 10/21/21 05:23 Last Admin: 10/21/21 05:22 Dose: 97 ml Documented by: [id number] Metoprolol Tartrate (Metoprolol Tartrate 100 Mg Tab) 100 mg PO NOW STA Stop: 10/21/21 05:22 Last Admin: 10/21/21 06:10 Dose: 100 mg Documented by: [id number] Discharge Plan Visit Data Chief Complaint: Chest Pain Stated Complaint: chest pain ED Provider: Jj Rutherford Discharge Problem: Hypoxia Forms Stand Alone Forms: [facility] Prescriptions Prescriptions: No Action atorvastatin 80 mg Tablet 80 mg PO HS RF: 0 clopidogrel 75 mg Tablet 75 mg PO QAM RF: 0 pantoprazole 40 mg Tablet,Delayed Release (Dr/Ec) 40 mg PO QAM RF: 0 magnesium oxide 400 mg magnesium Tablet 400 mg PO HS RF: 0 metoprolol tartrate 100 mg Tablet 100 mg PO BID RF: 0 donepezil [Aricept] 10 mg Tablet 10 mg PO HS RF: 0 nitroglycerin [Nitrostat] 0.4 mg Tablet, Sublingual 0.4 mg sublingual UD MDD 3 doses in 15 minutes PRN (Reason: Chest Pain) RF: 0 gabapentin 600 mg Tablet 600 mg PO BID RF: 0 isosorbide mononitrate 60 mg Tablet Extended Release 24 Hr 60 mg PO AMHS RF: 0 lisinopril 10 mg Tablet 5 mg PO HS RF: 0 pioglitazone [Actos] 30 mg Tablet 30 mg PO QAM RF: 0 guaifenesin [Mucinex] 600 mg Tablet Extended Release 12hr 600 mg PO Q12H PRN (Reason: cough and congestion) RF: 0 nortriptyline 75 mg Capsule 75 mg PO HS RF: 0 Novolin R Regular U-100 Insuln 100 unit/mL solution 10 unit subcut QDD RF: 0 Novolin R Regular U-100 Insuln 100 unit/mL solution 15 unit subcut QAM RF: 0 Novolin R Regular U-100 Insuln 100 unit/mL solution 15 unit subcut QDL RF: 0 Novolin N NPH U-100 Insulin 100 unit/mL suspension 36 unit subcut QAM RF: 0 Novolin N NPH U-100 Insulin 100 unit/mL suspension 25 unit subcut PM RF: 0 acetaminophen [Tylenol Extra Strength] 500 mg Tablet 1,000 mg PO BID PRN (Reason: Pain) RF: 0 hydrochlorothiazide 12.5 mg Tablet 12.5 mg PO 3XWK PRN (Reason: Unknown) RF: 0 trazodone 100 mg tablet 100 mg PO HS RF: 0 Eliquis 5 mg Tablet 5 mg PO BID Qty: 30 RF: 0 cephalexin 500 mg Capsule 500 mg PO TID Qty: 20 RF: 0 Referrals Referrals: Zachariah Duarte DO [Primary Care Provider] -
[2021-10-21 03:38] LABS: Basophils # (auto) 0.02 K/uL (0-0.2); Basophils % (auto) 0.3 %; Eosinophils # (auto) 0.04 K/uL (0-0.5); Eosinophils % (auto) 0.7 %; Hematocrit (blood only) 36.5 % (42-52); Hemoglobin 11.3 g/dL (14.0-18.0); Immature Granulocytes # (auto) 0.09 K/uL (0.00-0.02); Immature Granulocytes % (auto) 1.5 %; Lymphocytes # (auto) 0.72 K/uL (1.2-3.4); Lymphocytes % (auto) 12.1 %; Mean Corpuscular Hemoglobin 28.3 pg (25-34); Mean Corpuscular Volume 91.5 fL (80-100); Mean Platelet Volume 10.4 fL (7.4-10.4); Monocytes # (auto) 0.28 K/uL (0.11-0.59); Monocytes % (auto) 4.7 %; Neutrophils % (auto) 80.7 %; Platelet Count 169 K/uL (130-400); RDW Coefficient of Variation 16.4 % (11.5-14.5); RDW Standard Deviation 55.5 fL (36.4-46.3); Red Blood Count 3.99 M/uL (4.7-6.1); White Blood Count 5.95 K/uL (4.8-10.8)
[2021-10-21 04:01] LABS: Albumin Globulin Ratio 1.3 (0.9-2); Albumin Level 3.8 gm/dl (3.4-5.0); BUN Creatinine Ratio 21.4 (10-20); Calcium 7.9 mg/dl (8.5-10.1); Creatinine Clr Calc Pharmacy 58.7 ml/min; Est GFR (African American) 69.3 ml/min; Est GFR (Non-African American) 59.8 ml/min; Globulin 2.9 gm/dl (2.5-4.0); Potassium 4.1 mmol/L (3.5-5.1); Total Protein 6.7 gm/dl (6.0-8.3)
[2021-10-21 04:12] LABS: Partial Thromboplastin Ratio 1.3; Prothrombin Time 10.5 Seconds (9.0-12.0)
[2021-10-21 04:21] LABS: Troponin I 0.3 ng/ml (0-0.04)
[2021-10-21 04:48] LABS: Base Excess VBG 3.3 mEq/L; HCO3 VBG 28 mmol/L; Oxygen Saturation VBG 73.8 %; PCO2 VBG 42 mmHg (38-50); PO2 VBG 41 mmHg; pH VBG 7.44 (7.36-7.41)
[2021-10-21] MEDS ORDERED: ACETAMINOPHEN 325 MG TAB PO STA (05:03)
[2021-10-21] MEDS ORDERED: CALCIUM GLUCONATE 1,000 MG/60 ML BAG IV STA (05:05)
[2021-10-21] MEDS ORDERED: METOPROLOL TARTRATE 100 MG TAB PO STA (05:21)
[2021-10-21] MEDS ORDERED: OPTIRAY 320 125ml IV ONE (05:22)
--- NOTE | 2021-10-21 06:08 | History & Physical Report ---
Date of Service October 21, 2021 Assessment & Plan (1) Hypoxia: Plan: No PE on initial CT read. No congestion as per conversation with teleradiologist. Some atelectasis noted as per radiologist initial read. Chest pain with troponin elevation Secondary to uncontrolled blood pressure Possible musculoskeletal component given reproducibility on examination Rule out ACS, hx CAD status post CABG/stent chronic diastolic heart failure (EF 60-65%, TTE 2020 ), equivocal volume status given abn BNP atrial flutter status post cardioversion on Eliquis, px NSR hx TIA, PVD hyperlipidemia on statin Rx DM2 insulin requiring, patient markedly hyperglycemic secondary to missed PM insulin because he was not feeling well last night well-controlled as of recent hemoglobin A1c of 29 June 2021 history DVT As per records chronic anemia, Hemoglobin at baseline mixed dementia on Aricept, Patient mentating well lung nodule, 15 mm cavitary lesion on follow-up outpatient CT chest requested by [facility] Pulmonology Possible UTI on 3-day course of Cipro, outpatient UA pending ongoing tobacco abuse Supplemental O2 Follow official CT chest Follow troponin, titrate home BP meds ASA (along w px Plavix) for secondary CAD prevention until ACS ruled out TTE if with progression Cardiology consult Re: Chest pain with troponin elevation N.p.o. until patient seen by cardiology in anticipation of procedure. Hold Eliquis until patient seen by cardiology Pulmonology follow-up for pulmonary nodule Follow outpatient UA result, continue Cipro for now Basal insulin adjusted for n.p.o. status, ISS BG goal 1 10-1 40 DVT prophylaxis. Eliquis if no procedure contemplated Full code Patient requests for to be updated of plan of care. Katherine Sammi Oakley, contact #[phone]. Text document was generated using [employer] voice recognition software. It may contain grammatical or spelling errors. Kindly contact undersigned for clarification of any documentation item in question. History of Present Illness Chief Complaint: Chest pain Primary Care Provider: Zachariah Duarte DO History obtained from patient, family, and records. Medical history significant for chronic diastolic heart failure (EF 60-65%, TTE 2020 ), CAD status post CABG/stent, atrial flutter status post cardioversion on Eliquis, hx TIA, PVD, hypertension, hyperlipidemia, DM2 insulin requiring, history DVT, chronic anemia (baseline hemoglobin 11-12 ), mixed dementia as per records, lung nodule, ongoing tobacco abuse. Last confinement June 2021 for CHF and new onset atrial flutter. Patient underwent HEAVENLY cardioversion. Discharged on Eliquis for anticoagulation. Few days history of worsening shortness of breath mostly on exertion and inte rmittent chest pain symptoms similar to anginal attack as per patient. Patient worried about atrial flutter recurrence. Patient saw PCP yesterday. EKG done at the office. No A. fib or a flutter on EKG as per patient. Patient also told his PCP about dysuria symptoms without hematuria/fever/chills. Ciprofloxacin prescribed by PCP for presumptive UTI symptoms. UA pending at [facility] as per patient. Patient skipped his insulin last night because he went to bed not feeling well and not hungry. Few hours ago, patient noted worsening left-sided chest pain with shortness of breath. Chest pain pleuritic. No unusual cough symptoms. No fluid retention as per patient. No immediate relief with nitroglycerin intake at home. Some improvement after aspirin administration by EMS. Patient compliant with home medications. Usual stressors at home. Does not check blood pressure. O2 sats 87 on room air upon arrival at the ER. Patient currently comfortable. 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 Allergies Allergy/AdvReac Type Severity Reaction Status Date / Time fentanyl AdvReac Mild vomiting Verified 10/21/21 07:30 oxycodone AdvReac Mild vomiting Verified 10/21/21 07:30 propoxyphene AdvReac Mild Nausea - Verified 10/21/21 07:30 Darvocet Home Medications Medication Instructions Recorded Confirmed Type atorvastatin 80 mg tablet 80 mg PO HS 03/01/19 10/21/21 History clopidogrel 75 mg tablet 75 mg PO QAM 03/01/19 10/21/21 History donepezil 10 mg tablet (Aricept) 10 mg PO HS 03/01/19 10/21/21 History gabapentin 600 mg tablet 600 mg PO TID 03/01/19 10/21/21 History guaifenesin 600 mg tablet, 600 mg PO Q12H PRN 03/01/19 10/21/21 History extended release 12 hr (Mucinex) insulin NPH isoph U-100 human 100 25 unit SUBCUT HS 03/01/19 10/21/21 History unit/mL subcutaneous suspension (Novolin N NPH U-100 Insulin isophane) insulin NPH isoph U-100 human 100 36 unit SUBCUT QAM 03/01/19 10/21/21 History unit/mL subcutaneous suspension (Novolin N NPH U-100 Insulin isophane) insulin regular human 100 unit/mL 15 unit SUBCUT TIDM 03/01/19 10/21/21 History injection solution (Novolin R Regular U-100 Insulin) isosorbide mononitrate 60 mg 60 mg PO BID 03/01/19 10/21/21 History tablet,extended release 24 hr lisinopril 10 mg tablet 5 mg PO HS 03/01/19 10/21/21 History magnesium oxide 400 mg PO HS 03/01/19 10/21/21 History metoprolol tartrate 100 mg tablet 100 mg PO BID 03/01/19 10/21/21 History nitroglycerin 0.4 mg sublingual 0.4 mg SUBLINGUAL UD PRN MDD 3 03/01/19 10/21/21 History tablet (Nitrostat) doses in 15 minutes nortriptyline 75 mg capsule 75 mg PO HS 03/01/19 10/21/21 History pantoprazole 40 mg tablet,delayed 40 mg PO QAM 03/01/19 10/21/21 History release pioglitazone 30 mg tablet (Actos) 30 mg PO QAM 03/01/19 10/21/21 History trazodone 100 mg tablet 100 mg PO HS 06/23/21 10/21/21 History apixaban 5 mg tablet (Eliquis) 5 mg PO BID #30 tab 06/25/21 10/21/21 Rx albuterol sulfate 90 mcg/actuation 2 puff INHALATION Q4H PRN 10/21/21 10/21/21 History aerosol inhaler furosemide 20 mg tablet 20 mg PO QAM 10/21/21 10/21/21 History umeclidinium 62.5 mcg-vilanterol 1 inh INHALATION BID 10/21/21 10/21/21 History 25 mcg/actuation powdr for inhalation (Anoro Ellipta) Past Med/Surg History Medical History (Updated 10/21/21 @ 05:47 by Jj Rutherford DO) AAA (abdominal aortic aneurysm) Angina pectoris CAD (coronary artery disease) s/p angioplasty RCA in 1988, s/p CABG x 3 in 1997; NSTEMI demand ischemia after spinal surgery in 2012; S/P DWAYNE and angioplasty left circumflex in 2017 Chronic back pain COPD (chronic obstructive pulmonary disease) Diabetes Diabetes mellitus, type II GERD (gastroesophageal reflux disease) HLD (hyperlipidemia) HTN (hypertension) 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 Brendon Royal at 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 Beliefs That Will Affect Care: None Current Living Situation: Spouse Current Living Situation Comment: ranch home Feels Safe at Home: Yes Assistive Devices: CPAP and Glasses Review of Systems Review of Systems: As per HPI, all 10 systems reviewed, all other ROS negative Physical Exam Physical Exam: GENERAL: Comfortable, Pleasant, obese, no respiratory distress SKIN: Pallor, warm HEENT:Alopecia, pale palpebral conjunctivae, no ptosis, moist buccal mucosa, Nasal cannula in place NECK : Supple, Short neck,no tenderness CHEST : Decreased breath sounds, L Sided chest wall tenderness HEART : RRR, no obvious murmurs ABDOMEN: distention, nontender EXTREMITIES : minimal LE swelling/tenderness, no other conspicuous deformities noted NEUROLOGIC : Coherent, no facial asymmetry, no other gross focality Results & Data Results & Data ([facility]) Vital Signs (Past 12 Hours) Vital Signs Temp Pulse Resp BP Pulse Ox 10/21/21 05:00 80 162/52 H 95 10/21/21 04:50 85 20 97 10/21/21 04:40 95 10/21/21 04:30 96 10/21/21 04:20 89 95 10/21/21 04:10 87 17 10/21/21 04:00 88 18 99 10/21/21 03:50 90 21 99 10/21/21 03:40 88 22 100 10/21/21 03:30 88 20 99 10/21/21 03:20 91 H 27 H 99 10/21/21 03:11 96 H 31 H 100 10/21/21 02:44 37.6 C H 90 22 185/74 H 87 L Laboratory Results Laboratory Results WBC 5.95 K/uL (4.8-10.8) 10/21/21 03:23 RBC 3.99 M/uL (4.7-6.1) L 10/21/21 03:23 Hgb 11.3 g/dL (14.0-18.0) L 10/21/21 03:23 Hct 36.5 % (42-52) L 10/21/21 03:23 MCV 91.5 fL (80-100) 10/21/21 03:23 MCH 28.3 pg (25-34) 10/21/21 03:23 MCHC 31.0 g/dL (32-36) L 10/21/21 03:23 RDW Std Deviation 55.5 fL (36.4-46.3) H 10/21/21 03:23 RDW Coeff of Geremias 16.4 % (11.5-14.5) H 10/21/21 03:23 Plt Count 169 K/uL (130-400) 10/21/21 03:23 MPV 10.4 fL (7.4-10.4) 10/21/21 03:23 Immature Gran % (Auto) 1.5 % 10/21/21 03:23 Neut % (Auto) 80.7 % 10/21/21 03:23 Lymph % (Auto) 12.1 % 10/21/21 03:23 [place] % (Auto) 4.7 % 10/21/21 03:23 Eos % (Auto) 0.7 % 10/21/21 03:23 Baso % (Auto) 0.3 % 10/21/21 03:23 Neut # (Auto) 4.80 K/uL (1.4-6.5) 10/21/21 03:23 Lymph # (Auto) 0.72 K/uL (1.2-3.4) L 10/21/21 03:23 [place] # (Auto) 0.28 K/uL (0.11-0.59) 10/21/21 03:23 Eos # (Auto) 0.04 K/uL (0-0.5) 10/21/21 03:23 Baso # (Auto) 0.02 K/uL (0-0.2) 10/21/21 03:23 Immature Gran # (Auto) 0.09 K/uL (0.00-0.02) H 10/21/21 03:23 PT 10.5 Seconds (9.0-12.0) 10/21/21 03:49 INR 1.0 (0.9-1.1) 10/21/21 03:49 APTT 34.0 Seconds (21.0-31.0) H 10/21/21 03:49 PTT Ratio 1.3 10/21/21 03:49 VBG pH 7.44 (7.36-7.41) H 10/21/21 03:49 VBG pCO2 42 mmHg (38-50) 10/21/21 03:49 VBG pO2 41 mmHg 10/21/21 03:49 VBG HCO3 28 mmol/L 10/21/21 03:49 VBG O2 Saturation 73.8 % 10/21/21 03:49 VBG Base Excess 3.3 mEq/L 10/21/21 03:49 Sodium 134 mmol/L (136-145) L 10/21/21 03:23 Potassium 4.1 mmol/L (3.5-5.1) 10/21/21 03:23 Chloride 101 mmol/L (98-107) 10/21/21 03:23 Carbon Dioxide 25 mmol/L (21-32) 10/21/21 03:23 Anion Gap 8 (3-11) 10/21/21 03:23 BUN 25 mg/dl (6-23) H 10/21/21 03:23 Creatinine 1.17 mg/dl (0.6-1.4) 10/21/21 03:23 Est Cr Clr Drug Dosing 58.7 ml/min 10/21/21 03:23 Est GFR ( Amer) 69.3 ml/min 10/21/21 03:23 Est GFR (Non-Af Amer) 59.8 ml/min 10/21/21 03:23 BUN/Creatinine Ratio 21.4 (10-20) H 10/21/21 03:23 Glucose 323 mg/dl (70-99(Fasting)) H* 10/21/21 03:23 Calcium 7.9 mg/dl (8.5-10.1) L 10/21/21 03:23 Magnesium 2.0 mg/dl (1.7-2.4) 10/21/21 03:23 Total Bilirubin 1.0 mg/dl (0.2-1.0) 10/21/21 03:23 AST 16 U/L (13-39) 10/21/21 03:23 ALT 12 U/L (7-52) 10/21/21 03:23 Alkaline Phosphatase 85 U/L (34-104) 10/21/21 03:23 Troponin I 0.30 ng/ml (0-0.04) H* 10/21/21 03:23 B-Natriuretic Peptide 338 pg/ml (0-100) H 10/21/21 03:49 Total Protein 6.7 gm/dl (6.0-8.3) 10/21/21 03:23 Albumin 3.8 gm/dl (3.4-5.0) 10/21/21 03:23 Globulin 2.9 gm/dl (2.5-4.0) 10/21/21 03:23 Albumin/Globulin Ratio 1.3 (0.9-2) 10/21/21 03:23 Lipase 22 U/L (11-82) 10/21/21 03:23 Procalcitonin 0.50 ng/ml (0-0.5) 10/21/21 03:23 SARS-CoV-2, RNA, NAAT NEGATIVE (NEGATIVE) 10/21/21 03:[address] chest initial read: No evidence of pulmonaryemboli or acute cardiopulmonaryprocess. EKG: As per my interpretation: Rate 95, NSR, LAD, LAFB, no ischemia,
[2021-10-21] MEDS ORDERED: ASPIRIN CHEW 324 MG PO STA (06:09)
[2021-10-21] MEDS ORDERED: SODIUM CHLORIDE 0.9% 1000ML 500 ML IV ONE (06:12)
[2021-10-21] MEDS ORDERED: INSULIN GLARGINE SOLOSTAR 100 UNITS/ML 3 ML PEN SC STA (06:17)
[2021-10-21] MEDS ORDERED: GLUCOSE 40% GEL 15 GM TUBE PO PRN (06:24)
[2021-10-21] MEDS ORDERED: DEXTROSE 50% 50 ML SYRINGE IV PRN (06:24)
[2021-10-21] MEDS ORDERED: CARBOHYDRATES FOR HYPOGLYCEMIA PO PRN (06:24)
[2021-10-21] MEDS ORDERED: GLUCOSE 10 TABS/TUBE PO PRN (06:24)
[2021-10-21] MEDS ORDERED: GLUCAGON FOR INJ 1 MG VIAL SQ PRN (06:24)
[2021-10-21] MEDS ORDERED: PROMETHAZINE HCL 12.5 MG in SODIUM CHLORIDE 0.9% 50 ML IV PRN (06:24)
[2021-10-21] MEDS ORDERED: traMADol HCL 50 MG TABLET PO PRN (06:24)
[2021-10-21 07:49] LABS: Estimated Average Glucose 160 mg/dl; Hemoglobin A1C 7.2 % (4.5-5.6)
[2021-10-21 07:55] LABS: Influenza A virus by PCR Negative (Negative); Influenza B virus by PCR Negative (Negative)
[2021-10-21] MEDS: INSULIN ASPART PER UNIT SC SCH ×5 (08:00→20:08)
[2021-10-21] MEDS ORDERED: MoRPHine SULFATE 2 MG/ML CARP IV PRN (08:02)
[2021-10-21] MEDS ORDERED: ACETAMINOPHEN 325 MG TAB PO PRN (08:02)
[2021-10-21] MEDS ORDERED: NITROGLYCERIN SL 0.4 MG/TAB TAB SL PRN (08:02)
--- NOTE | 2021-10-21 08:28 | Cardiology Consultation ---
Date of Consultation October 21, 2021 Assessment & Plan (1) Hypoxia: (2) Dyspnea: (3) Atrial flutter: (4) Hx of CABG: (5) Tobacco use: (6) PAD (peripheral artery disease): (7) AAA (abdominal aortic aneurysm): (8) Chronic back pain: (9) CAD (coronary artery disease): (10) VENICE (obstructive sleep apnea): (11) HTN (hypertension): (12) Diabetes mellitus, type II: (13) COPD (chronic obstructive pulmonary disease): Patient with a longstanding history of complex coronary artery disease We will repeat a resting 2D echocardiogram at this time but do not see the benefit to stress testing. Patient does not examine volume overloaded. CT of the chest suggests infectious process and asked the primary team to address antibiotics accordingly. Was significantly hypertensive on presentation so we will add spironolactone 25 mg daily for further blood pressure control as well as the aldosterone antagonist and benefits given his diastolic dysfunction. Continue to monitor clinically overnight. History of Present Illness Reason for Consultation: chest pain/uncontrolled hypertension Requesting Physician: Dr. Yoder Attending Physician: Flavio Nuñez MD History of Present Illness Mr. Oakley is a cardiovascularly complex 76 yo male who presented to [facility] ER on 10/20/21 per the recommendations of his pcp for chest pain. PMHX per most recent cardiology note: 1.Long-standing history of coronary artery disease status post remote coronary intervention with angioplasty to the right coronary artery in 1988. 2.History of coronary bypass grafting in 1997 for a diffuse 3-vessel disease receiving a PFEIFFER graft to the LAD, saphenous vein graft to the circumflex obtuse marginal, and saphenous vein graft to the posterior descending artery. 3.Chronic class II angina pectoris. 4.History of non-ST segment elevation myocardial infarction in the setting of demand based ischemia with associated spinal surgery in August 2012. 5.Chronic obstructive lung disease. 6.History of past TIA. 7.History of atherosclerotic peripheral vascular disease status post PTCA of the left external iliac and right common iliac arteries in July of 2010. 8.Atherosclerotic carotid plaquing. 9.Hyperlipidemia. 10.Long-standing insulin-dependent diabetes mellitus. 11.Chronic obstructive lung disease. 12. Status post coronary intervention, proximal and mid left circumflex on 01/29/2017, receiving drug-eluting stent to proximal lesion, balloon angioplasty to the distal lesion. 13. Non ST segment elevation myocardial infarction with crescendo angina March 01, 2019 with subsequent coronary intervention with drug-eluting stents x2 to the saphenous vein graft supplying the distal right coronary artery. Distal circumflex and right coronary artery were notably diffusely diseased. PFEIFFER graft patent 14. New onset atrial flutter, June,, prompting direct current cardioversion 06/25/2021, [facility] on Eliquis Allergies Allergy/AdvReac Type Severity Reaction Status Date / Time fentanyl AdvReac Mild vomiting Verified 10/21/21 07:30 oxycodone AdvReac Mild vomiting Verified 10/21/21 07:30 propoxyphene AdvReac Mild Nausea - Verified 10/21/21 07:30 Darvocet Home Medications Medication Instructions Recorded Confirmed Type atorvastatin 80 mg tablet 80 mg PO HS 03/01/19 10/21/21 History clopidogrel 75 mg tablet 75 mg PO QAM 03/01/19 10/21/21 History donepezil 10 mg tablet (Aricept) 10 mg PO HS 03/01/19 10/21/21 History gabapentin 600 mg tablet 600 mg PO TID 03/01/19 10/21/21 History guaifenesin 600 mg tablet, 600 mg PO Q12H PRN 03/01/19 10/21/21 History extended release 12 hr (Mucinex) insulin NPH isoph U-100 human 100 25 unit SUBCUT HS 03/01/19 10/21/21 History unit/mL subcutaneous suspension (Novolin N NPH U-100 Insulin isophane) insulin NPH isoph U-100 human 100 36 unit SUBCUT QAM 03/01/19 10/21/21 History unit/mL subcutaneous suspension (Novolin N NPH U-100 Insulin isophane) insulin regular human 100 unit/mL 15 unit SUBCUT TIDM 03/01/19 10/21/21 History injection solution (Novolin R Regular U-100 Insulin) isosorbide mononitrate 60 mg 60 mg PO BID 03/01/19 10/21/21 History tablet,extended release 24 hr lisinopril 10 mg tablet 5 mg PO HS 03/01/19 10/21/21 History magnesium oxide 400 mg PO HS 03/01/19 10/21/21 History metoprolol tartrate 100 mg tablet 100 mg PO BID 03/01/19 10/21/21 History nitroglycerin 0.4 mg sublingual 0.4 mg SUBLINGUAL UD PRN MDD 3 03/01/19 10/21/21 History tablet (Nitrostat) doses in 15 minutes nortriptyline 75 mg capsule 75 mg PO HS 03/01/19 10/21/21 History pantoprazole 40 mg tablet,delayed 40 mg PO QAM 03/01/19 10/21/21 History release pioglitazone 30 mg tablet (Actos) 30 mg PO QAM 03/01/19 10/21/21 History trazodone 100 mg tablet 100 mg PO HS 06/23/21 10/21/21 History apixaban 5 mg tablet (Eliquis) 5 mg PO BID #30 tab 06/25/21 10/21/21 Rx albuterol sulfate 90 mcg/actuation 2 puff INHALATION Q4H PRN 10/21/21 10/21/21 History aerosol inhaler furosemide 20 mg tablet 20 mg PO QAM 10/21/21 10/21/21 History umeclidinium 62.5 mcg-vilanterol 1 inh INHALATION BID 10/21/21 10/21/21 History 25 mcg/actuation powdr for inhalation (Anoro Ellipta) Patient History Medical History AAA (abdominal aortic aneurysm) Angina pectoris CAD (coronary artery disease) s/p angioplasty RCA in 1988, s/p CABG x 3 in 1997; NSTEMI demand ischemia after spinal surgery in 2012; S/P DWAYNE and angioplasty left circumflex in 2016 Chronic back pain COPD (chronic obstructive pulmonary disease) Diabetes Diabetes mellitus, type II GERD (gastroesophageal reflux disease) HLD (hyperlipidemia) HTN (hypertension) 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 [facility] [place] History H/O angioplasty History of cardiac cath History of cataract surgery S/P triple vessel bypass Family History Other Diabetes Heart disease Stroke Social History Smoking Status: Light tobacco smoker Cigarettes Per Day: 2 per week; Second Hand Exposure: No; Do You Dip or Chew Tobacco: No; Hx Alcohol Use: Yes Alcohol type: hard liquor Hx Substance Use: No Preferred Language: Gabonese Communication Ability: Effective Mail Handler Required: No Beliefs That Will Affect Care: None Current Living Situation: Spouse Current Living Situation Comment: ranch home Other Information That Helps Us Care for You: No Feels Safe at Home: Yes Safety Concerns: Feels Safe At This Time Assistive Devices: Denture - Upper, Denture - Lower and Glasses Review of Systems Review of Systems: All systems reviewed & are unremarkable except as noted in HPI & below Results & Data ([facility]) Vital Signs (Past 12 Hours) Vital Signs Temp Pulse Pulse Resp BP BP Pulse Ox 10/21/21 07:00 80 16 130/63 95 10/21/21 05:00 80 162/52 H 95 10/21/21 04:50 85 20 97 10/21/21 04:40 95 10/21/21 04:30 96 10/21/21 04:20 89 95 10/21/21 04:10 87 17 10/21/21 04:00 88 18 99 10/21/21 03:50 90 21 99 10/21/21 03:40 88 22 100 10/21/21 03:30 88 20 99 10/21/21 03:20 91 H 27 H 99 10/21/21 03:11 96 H 31 H 100 10/21/21 02:44 37.6 C H 90 22 185/74 H 87 L
--- NOTE | 2021-10-21 08:44 | CT Scan Report ---
CHEST CTA for PULMONARY ARTERIES CT DOSE: 525.28 mGy.cm HISTORY: Shortness of breath. Mid chest pain. TECHNIQUE: Multiaxial CT images of the chest were performed following the intravenous administration of contrast to evaluate the pulmonary arteries. Maximal intensity projection images were also obtaine d. A dose lowering technique was utilized adhering to the principles of ALARA. COMPARISON STUDY: Chest 06/23/2021. FINDINGS: Limited views of the upper abdomen demonstrate a normal liver and spleen. Normal esophagus. The heart is mildly enlarged. No pleural or pericardial effusions. There are few mildly enlarged med iastinal and bilateral hilar lymph nodes. Dominant right paratracheal lymph node on image 191 measure s 1.8 x 1.2 cm. There are poststernotomy changes. No acute fractures within the visualized osseous st ructures. Calcified plaque within the normal caliber thoracic aorta. No evidence for an aortic dissec tion. No filling defects within the pulmonary arteries to suggest a pulmonary embolus. The central ai rways are patent. No pneumothorax. Mild emphysema. Small area of patchy groundglass densities within the base of the left lower lobe. This may represent a mild infectious bronchiolitis. A few calcified granulomas within the right upper lobe. IMPRESSION: 1. No evidence for pulmonary embolus. 2. Mild emphysema. 3. Mild cardiomegaly. 4. Smaller patchy groundglass densities within the base of the left lower lobe. This may represent mi ld inflammatory/infectious change. 5. Nonspecific mild mediastinal and bilateral hilar lymphadenopathy. Consider six-month chest CT foll ow-up to ensure resolution of the lymphadenopathy. ACT 112: Positive. There are findings on this exam that require communication between the performing entity and the patient following Patient Test Result Information Act ([place] Act 112) guidelines. Electronically signed by: Norberto Chan M.D. 10/21/2021 8:43 AM
[2021-10-21] MEDS ORDERED: CIPROFLOXACIN 250 MG TAB PO SCH (09:00)
[2021-10-21] MEDS ORDERED: GABAPENTIN 600 MG TAB PO SCH (09:00)
[2021-10-21] MEDS: CLOPIDOGREL BISULFATE 75 MG TAB PO SCH (09:20)
[2021-10-21] MEDS: PANTOprazole 40 MG TAB PO SCH (09:22)
[2021-10-21] MEDS: ISOSORBIDE MONO EXTENDED REL 60 MG TABCR PO SCH ×2 (09:22→20:03)
[2021-10-21] MEDS: UMECLIDINIUM/VILANTEROL 62.5/25MCG 7 PUFFS/INHALER INH SCH (09:30)
[2021-10-21] MEDS: APIXABAN 5 MG TABLET PO SCH ×2 (11:26→20:04)
[2021-10-21] MEDS: SPIRONOLACTONE 25 MG TAB PO SCH (11:30)
--- NOTE | 2021-10-21 13:18 | Electrocardiogram Report ---
Test Reason : Blood Pressure : / mmHG Vent. Rate : 095 BPM Atrial Rate : 095 BPM P-R Int : 222 ms QRS Dur : 092 ms QT Int : 364 ms P-R-T Axes : 059 -64 077 degrees QTc Int : 457 ms Sinus rhythm with 1st degree A-V block Left anterior fascicular block Poor R wave progression, consider anterior UT vs. lead placement vs. LVH Abnormal ECG When compared with ECG of 25-JUN-2021 08:00, No significant change was found Confirmed by Jesse Flores ([id number]) on 10/21/2021 1:17:51 PM Referred By: REFERRED SELF Confirmed By:Jesse Flores
--- NOTE | 2021-10-21 17:05 | Communication Note ---
Date of Service: October 21, 2021 Pt was seen and examined for worsening SOB with minimal exertion. Sitting in bed with no acute distress eating lunch. Denies any chest pain currently. Troponin 0.3->1.18->1.11. CTA chest showed no evidence of PE. Smaller patchy groundglass densities within the base of the left lower lobe. cardio on board. Case discussed with cardio plan tos start on spironolactone 25mg. Plan to get an echo- Pending. Will d/c cipro that was started by PCP for possible UTI. Will add cefepime to cover for Possible UTI and Pulmonary. Continue monitor closely. MD Joaquin
[2021-10-21] MEDS: CEFDINIR 300 MG CAP PO SCH (20:03)
[2021-10-21] MEDS: GABAPENTIN 600 MG TAB PO SCH (20:04)
[2021-10-21] MEDS: DONEPEZIL HCL 10 MG TAB PO SCH (20:05)
[2021-10-21] MEDS: lisinopril 5 MG TAB PO SCH (20:06)
[2021-10-21] MEDS: METOPROLOL TARTRATE 100 MG TAB PO SCH (20:06)
[2021-10-21] MEDS: traZODone HCL 100 MG TAB PO SCH (20:06)
[2021-10-21] MEDS: NORTRIPTYLINE HCL 25 MG CAP PO SCH (20:06)
[2021-10-21] MEDS: ATORVASTATIN 40 MG TAB PO SCH (20:07)
[2021-10-21] MEDS ORDERED: INSULIN GLARGINE SOLOSTAR 100 UNITS/ML 3 ML PEN SC SCH (21:00)
[2021-10-21 22:44] LABS: Appearance Urine Clear (Clear); Bacteria Urine Automated Negative (Negative); Bilirubin Urine Negative (Negative); Blood Urine 1+ (Negative); Cast Urine Automated 0 /lpf (0-5); Color Urine Yellow; Glucose Urine UA 2+ (Negative); Ketones Urine Negative (Negative); Leukocyte Esterase Urine Negative (Negative); Nitrite Urine Negative (Negative); Protein Urine Trace (Negative); RBC Urine Automated 0-4 /hpf (0-4); Specific Gravity Urine 1.018 (1.000-1.030); Urobilinogen Urine Negative (Negative)
[2021-10-22 06:11] LABS: Basophils # (auto) 0.02 K/uL (0-0.2); Basophils % (auto) 0.3 %; Eosinophils # (auto) 0.14 K/uL (0-0.5); Eosinophils % (auto) 2.3 %; Hemoglobin 10.1 g/dL (14.0-18.0); Immature Granulocytes # (auto) 0.05 K/uL (0.00-0.02); Immature Granulocytes % (auto) 0.8 %; Lymphocytes # (auto) 0.95 K/uL (1.2-3.4); Lymphocytes % (auto) 15.4 %; Mean Corpuscular Hemoglobin 28.8 pg (25-34); Mean Corpuscular Hgb Conc 31.6 g/dL (32-36); Mean Corpuscular Volume 91.2 fL (80-100); Mean Platelet Volume 10.3 fL (7.4-10.4); Monocytes # (auto) 1.02 K/uL (0.11-0.59); Monocytes % (auto) 16.5 %; Neutrophils # (auto) 3.99 K/uL (1.4-6.5); Neutrophils % (auto) 64.7 %; Platelet Count 151 K/uL (130-400); RDW Coefficient of Variation 16.5 % (11.5-14.5); Red Blood Count 3.51 M/uL (4.7-6.1); White Blood Count 6.17 K/uL (4.8-10.8)
[2021-10-22 06:55] LABS: BUN Creatinine Ratio 24.1 (10-20); Calcium 8.6 mg/dl (8.5-10.1); Chol HDL Ratio 2.9 (0-5); Est GFR (African American) 96.5 ml/min; Est GFR (Non-African American) 83.2 ml/min; Potassium 3.7 mmol/L (3.5-5.1)
[2021-10-22] MEDS: CEFDINIR 300 MG CAP PO SCH ×2 (08:15→20:11)
[2021-10-22] MEDS: ASPIRIN 81 MG ECTAB PO SCH (08:15)
[2021-10-22] MEDS: SPIRONOLACTONE 25 MG TAB PO SCH (08:15)
[2021-10-22] MEDS: ISOSORBIDE MONO EXTENDED REL 60 MG TABCR PO SCH ×2 (08:15→20:10)
[2021-10-22] MEDS: APIXABAN 5 MG TABLET PO SCH ×2 (08:15→20:12)
[2021-10-22] MEDS: GABAPENTIN 600 MG TAB PO SCH ×2 (08:16→20:10)
[2021-10-22] MEDS: METOPROLOL TARTRATE 100 MG TAB PO SCH ×2 (08:16→20:11)
[2021-10-22] MEDS: CLOPIDOGREL BISULFATE 75 MG TAB PO SCH (08:16)
[2021-10-22] MEDS: PANTOprazole 40 MG TAB PO SCH (08:16)
[2021-10-22] MEDS: UMECLIDINIUM/VILANTEROL 62.5/25MCG 7 PUFFS/INHALER INH SCH (08:16)
[2021-10-22] MEDS: INSULIN ASPART PER UNIT SC SCH ×4 (08:28→20:14)
[2021-10-22] MEDS: INSULIN GLARGINE SOLOSTAR 100 UNITS/ML 3 ML PEN SC SCH ×2 (08:28→20:13)
--- NOTE | 2021-10-22 09:45 | Cardiology Progress Note ---
Date of Service October 22, 2021 Assessment & Plan (1) Hypoxia: (2) Dyspnea: (3) Atrial flutter: (4) Hx of CABG: (5) Tobacco use: (6) PAD (peripheral artery disease): (7) AAA (abdominal aortic aneurysm): (8) Chronic back pain: (9) CAD (coronary artery disease): (10) VENICE (obstructive sleep apnea): (11) HTN (hypertension): (12) Diabetes mellitus, type II: (13) COPD (chronic obstructive pulmonary disease): Plan: Patient symptoms improved, now chest pain-free. Blood pressure now well controlled with addition of spironolactone. 2D echocardiogram without any significant change. Continue antibiotics as per primary team. Okay to DC from telemetry or to home from a cardiac standpoint. Would discharge home on current medical regimen Admission and Anticipated Discharge Date Admission Date: October 21, 2021 Subjective Patient seen and examined, chart reviewed. States he is feeling much better today. No further chest discomfort and states the breathing is improving. Denies palpitations, lightheadedness, dizziness or syncope. Telemetry reviewed: Normal sinus rhythm with left anterior fascicular block, no arrhythmias Review of Systems Review of Systems: All systems reviewed & are unremarkable except as noted in HPI & below Physical Exam Physical Exam: General: Awake, alert and oriented x 3. No acute distress. HEENT: Normocephalic, atraumatic. Pupils equal, round and reactive to light and accommodation. Extraocular muscles are intact. Anicteric sclera. Moist mucous membranes. Neck: No JVD. No bruit. Cardiovascular: irregularly irregular, unable to appreciate murmur, rub or gallop. Pulmonary: Clear to auscultation bilaterally. No rales, rhonchi, or wheezing. Abdomen: Bowel sounds x 4, soft. No rebound, guarding or tenderness. No organomegaly. Extremities: No clubbing, cyanosis or edema. +2 pedal pulses bilaterally. Skin: Warm and dry. Results & Data ([facility]) Vital Signs (Past 12 Hours) Vital Signs Temp Pulse Pulse Resp BP Pulse Ox 10/22/21 07:08 36.8 C 69 18 124/63 93 10/22/21 07:00 73 10/22/21 03:21 36.7 C 67 18 107/52 L 95 10/21/21 23:17 36.5 C 69 17 114/65 92 10/21/21 22:56 63
--- NOTE | 2021-10-22 16:30 | Hospitalist Progress Note ---
Date of Service October 22, 2021 Assessment & Plan (1) Hypoxia: Plan: Likely multifactorial: History of COPD, chronic diastolic CHF, sleep apnea and he is a smoker No PE on initial CT read. No congestion as per conversation with teleradiologist. Some atelectasis noted as per radiologist initial read. Chronic diastolic heart failure (EF 60-65%, TTE 2020 ), BNP is minimally elevated Atrial flutter status post cardioversion on Eliquis, px NSR Heart rate was minimally elevated at rest 95 on admission Likely had component of acute on chronic heart failure Saturating normally on 2 L of oxygen via nasal cannula Denies any shortness of breath at rest Get PT and OT evaluation and 2 step O2 saturation test tomorrow Increasing troponins Chest pain with troponin elevation Secondary to uncontrolled blood pressure Possible musculoskeletal component given reproducibility on examination Rule out ACS, hx CAD status post CABG/stent Echo remains unremarkable Appreciate cardiology input and recommendation Atrial flutter status post cardioversion on Eliquis, px NSR Heart rate was minimally elevated at rest 95 on admission Has been on high-dose beta-ning Heart rate is controlled Continue Eliquis, aspirin and Plavix Hypertension Continue beta-ning and lisinopril DM2 insulin requiring, patient markedly hyperglycemic secondary to missed PM insulin because he was not feeling well last night Well-controlled as of recent hemoglobin A1c of 29 June 2021 Basal insulin adjusted for n.p.o. status, ISS BG goal 1 10-1 40 Chronic anemia, Hemoglobin at baseline Mixed dementia on Aricept, Patient mentating well Lung nodule, 15 mm cavitary lesion on follow-up outpatient CT chest requested by [facility] Pulmon[facility] Pulmonology follow-up for pulmonary nodule Possible UTI on 3-day course of Cipro, outpatient UA pending Follow outpatient UA result, continue Cipro for now He has been getting Cefdinir 300 mg BID and not Cipro Ongoing tobacco abuse DVT prophylaxis. Eliquis if no procedure contemplated Full code Patient requests for to be updated of plan of care. Ms. Sammi Oakley, contact #[phone]. Admission and Anticipated Discharge Date Admission Date: October 21, 2021 Subjective 10/22/2021 The patient was seen and examined in telemetry unit He has been feeling much better and denies any significant symptoms at rest His blood pressure is maintained Review of Systems Review of Systems: All systems reviewed and are unremarkable except as mentioned below Respiratory: No shortness of breath at rest Cardiovascular: Additional Comments: No palpitation and no chest pain Physical Exam Physical Exam: Lying in bed comfortably Constitutional: well developed, well nourished and + obese; not ill appearing Eyes: PERRL, conjunctivae normal, anicteric sclerae ENMT: external ear and nose normal, oropharynx normal Neck: trachea midline, no thyromegaly Respiratory: no respiratory distress Auscultation: lungs clear to auscultation bilaterally and + diminished lung sounds Cardiovascular: Rate/Rhythm: + irregularly irregular Heart Sounds: normal S1 and normal S2; no murmur Extremities: + edema (1+ edema bilaterally) Gastrointestinal (Abdomen): Inspection/Auscultation: normal bowel sounds; abdomen not distended Percussion/Palpation: abdomen soft; abdomen nontender Musculoskeletal: No acute arthritis in any joint Results & Data Results & Data ([facility]) Vital Signs (Past 12 Hours) Vital Signs Temp Pulse Pulse Resp BP Pulse Ox 10/22/21 15:43 36.5 C 65 19 136/70 95 10/22/21 15:00 65 10/22/21 11:20 36.3 C L 78 18 127/68 90 10/22/21 07:08 36.8 C 69 18 124/63 93 10/22/21 07:00 73 Laboratory Results Short CBC 10/22/21 Range/Units 05:41 WBC 6.17 (4.8-10.8) K/uL Hgb 10.1 L (14.0-18.0) g/dL Hct 32.0 L (42-52) % Plt Count 151 (130-400) K/uL BMP 10/22/21 05:41 Sodium 137 Potassium 3.7 Chloride 104 Carbon Dioxide 27 BUN 21 Creatinine 0.87 D Glucose 153 H Calcium 8.6 Urine 10/21/21 Range/Units 22:33 Urine Color Yellow Urine Appearance Clear (Clear) Urine pH 6.0 (4.5-7.5) Ur Specific [place] 1.018 (1.000-1.030) Urine Protein Trace H (Negative) Urine Glucose (UA) 2+ H (Negative) Medications Administered Current Inpatient Medications Acetaminophen (Acetaminophen 325 Mg Tab) 650 mg PO Q4H PRN PRN Reason: Pain or Fever Stop: 11/20/21 08:01 Last Admin: 10/21/21 15:02 Dose: 650 mg Documented by: Apixaban (Apixaban 5 Mg Tablet) 5 mg PO BID COUNTS INCLUDE 234 BEDS AT THE [facility] Stop: 11/20/21 10:59 Last Admin: 10/22/21 08:15 Dose: 5 mg Documented by: Aspirin (Aspirin 81 Mg Ectab) 81 mg PO QAM COUNTS INCLUDE 234 BEDS AT THE [facility] Stop: 11/21/21 08:59 Last Admin: 10/22/21 08:15 Dose: 81 mg Documented by: Atorvastatin Calcium (Atorvastatin 40 Mg Tab) 80 mg PO HS COUNTS INCLUDE 234 BEDS AT THE [facility] Stop: 11/20/21 20:59 Last Admin: 10/21/21 20:07 Dose: 80 mg Documented by: Cefdinir (Cefdinir 300 Mg Cap) 300 mg PO Q12 COUNTS INCLUDE 234 BEDS AT THE [facility] Stop: 10/26/21 20:59 Last Admin: 10/22/21 08:15 Dose: 300 mg Documented by: Clopidogrel Bisulfate (Clopidogrel Bisulfate 75 Mg Tab) 75 mg PO QAM COUNTS INCLUDE 234 BEDS AT THE [facility] Stop: 11/20/21 08:59 Last Admin: 10/22/21 08:16 Dose: 75 mg Documented by: Dextrose (Dextrose 50% 50 Ml Syringe) 25 - 50 ml IV UD PRN; Protocol PRN Reason: Hypoglycemia Protocol Stop: 11/20/21 06:23 Donepezil HCl (Donepezil Hcl 10 Mg Tab) 10 mg PO [facility] Stop: 11/20/21 20:59 Last Admin: 10/21/21 20:05 Dose: 10 mg Documented by: Gabapentin (Gabapentin 600 Mg Tab) 600 mg PO BID COUNTS INCLUDE 234 BEDS AT [facility] Stop: 11/20/21 20:59 Last Admin: 10/22/21 08:16 Dose: 600 mg Documented by: Glucagon (Glucagon For Inj 1 Mg Vial) 1 mg SQ UD PRN; Protocol PRN Reason: Hypoglycemia Protocol Stop: 11/20/21 06:23 Glucose (Glucose 10 Tabs/Tube) 4 - 8 tabs PO UD PRN; Protocol PRN Reason: Hypoglycemia Protocol Stop: 11/20/21 06:23 Glucose (Glucose 40% Gel 15 Gm Tube) 15 - 30 gm PO UD PRN; Protocol PRN Reason: Hypoglycemia Protocol Stop: 11/20/21 06:23 Promethazine HCl 12.5 mg/ (Sodium Chloride) 50.5 mls @ 202 mls/hr IV Q6H PRN PRN Reason: Nausea And Vomiting Stop: 11/20/21 06:23 Insulin Aspart (Insulin Aspart Per Unit) 0 units SC ACHS COUNTS INCLUDE 234 BEDS AT THE [facility] Stop: 11/20/21 06:24 Last Admin: 10/22/21 12:01 Dose: 6 units Documented by: Insulin Glargine (Insulin Glargine Solostar 100 Units/Ml 3 Ml Pen) 25 units SC BID COUNTS INCLUDE 234 BEDS AT THE [facility] Stop: 11/21/21 08:59 Last Admin: 10/22/21 08:28 Dose: 25 units Documented by: Isosorbide Mononitrate (Isosorbide [place] Extended Rel 60 Mg Tabcr) 60 mg PO [facility] COUNTS INCLUDE 234 BEDS AT [facility] Stop: 11/20/21 08:59 Last Admin: 10/22/21 08:15 Dose: 60 mg Documented by: Lisinopril (Lisinopril 5 Mg Tab) 5 mg PO [facility] Stop: 11/20/21 20:59 Last Admin: 10/21/21 20:06 Dose: 5 mg Documented by: Metoprolol Tartrate (Metoprolol Tartrate 100 Mg Tab) 100 mg PO BID COUNTS INCLUDE 234 BEDS AT [facility] Stop: 11/20/21 20:59 Last Admin: 10/22/21 08:16 Dose: 100 mg Documented by: Miscellaneous (Carbohydrates For Hypoglycemia ) 15 - 30 gm PO UD PRN PRN Reason: Hypoglycemia Protocol Stop: 11/20/21 06:23 Morphine Sulfate (Morphine Sulfate 2 Mg/Ml Carp) 2 mg IV Q3H PRN PRN Reason: Pain Stop: 11/04/21 08:01 Nitroglycerin (Nitroglycerin Sl 0.4 Mg/Tab Tab) 0.4 mg SL UD PRN PRN Reason: Chest Pain Stop: 11/20/21 08:01 Nortriptyline HCl (Nortriptyline Hcl 25 Mg Cap) 75 mg PO [facility] Stop: 11/20/21 20:59 Last Admin: 10/21/21 20:06 Dose: 75 mg Documented by: Pantoprazole Sodium (Pantoprazole 40 Mg Tab) 40 mg PO [facility] Stop: 11/20/21 08:59 Last Admin: 10/22/21 08:16 Dose: 40 mg Documented by: Spironolactone (Spironolactone 25 Mg Tab) 25 mg PO [facility] Stop: 11/20/21 10:59 Last Admin: 10/22/21 08:15 Dose: 25 mg Documented by: Trazodone HCl (Trazodone Hcl 100 Mg Tab) 100 mg PO HS COUNTS INCLUDE 234 BEDS AT [facility] Stop: 11/20/21 20:59 Last Admin: 10/21/21 20:06 Dose: 100 mg Documented by: Umeclidinium/Vilanterol (Umeclidinium/Vilanterol 62.5/25mcg 7 Puffs/Inhaler) 1 puffs INH DAILY [facility] Stop: 11/20/21 08:59 Last Admin: 10/22/21 08:16 Dose: 1 puffs Documented by:
[2021-10-22 18:22] LABS: Appearance Urine Clear (Clear); Bacteria Urine Automated Negative (Negative); Bilirubin Urine Negative (Negative); Blood Urine Trace (Negative); Color Urine Dark Yellow; Epithelial Cell Urine Auto >30 /lpf (0-5); Glucose Urine UA 1+ (Negative); Ketones Urine Trace (Negative); Leukocyte Esterase Urine Trace (Negative); Nitrite Urine Negative (Negative); Protein Urine 1+ (Negative); Specific Gravity Urine 1.024 (1.000-1.030); Urobilinogen Urine Negative (Negative); pH Urine 5.5 (4.5-7.5)
[2021-10-22] MEDS: ATORVASTATIN 40 MG TAB PO SCH (20:10)
[2021-10-22] MEDS: traZODone HCL 100 MG TAB PO SCH (20:11)
[2021-10-22] MEDS: DONEPEZIL HCL 10 MG TAB PO SCH (20:11)
[2021-10-22] MEDS: lisinopril 5 MG TAB PO SCH (20:11)
[2021-10-22] MEDS: NORTRIPTYLINE HCL 25 MG CAP PO SCH (20:12)
[2021-10-23 06:33] LABS: BUN Creatinine Ratio 18.9 (10-20); Calcium 8.5 mg/dl (8.5-10.1); Creatinine Clr Calc Pharmacy 61.9 ml/min; Est GFR (African American) 73.8 ml/min; Est GFR (Non-African American) 63.7 ml/min; Magnesium 2.1 mg/dl (1.7-2.4)
[2021-10-23] MEDS: ISOSORBIDE MONO EXTENDED REL 60 MG TABCR PO SCH (08:10)
[2021-10-23] MEDS: PANTOprazole 40 MG TAB PO SCH (08:10)
[2021-10-23] MEDS: CLOPIDOGREL BISULFATE 75 MG TAB PO SCH (08:10)
[2021-10-23] MEDS: METOPROLOL TARTRATE 100 MG TAB PO SCH (08:10)
[2021-10-23] MEDS: APIXABAN 5 MG TABLET PO SCH (08:10)
[2021-10-23] MEDS: SPIRONOLACTONE 25 MG TAB PO SCH (08:10)
[2021-10-23] MEDS: GABAPENTIN 600 MG TAB PO SCH (08:10)
[2021-10-23] MEDS: CEFDINIR 300 MG CAP PO SCH (08:10)
[2021-10-23] MEDS: ASPIRIN 81 MG ECTAB PO SCH (08:10)
[2021-10-23] MEDS: UMECLIDINIUM/VILANTEROL 62.5/25MCG 7 PUFFS/INHALER INH SCH (08:11)
[2021-10-23] MEDS: INSULIN ASPART PER UNIT SC SCH ×2 (08:17→12:06)
[2021-10-23] MEDS: INSULIN GLARGINE SOLOSTAR 100 UNITS/ML 3 ML PEN SC SCH (08:17)
--- NOTE | 2021-10-23 11:12 | Cardiology Progress Note ---
Date of Service October 23, 2021 Assessment & Plan (1) Hypoxia: (2) Dyspnea: (3) Atrial flutter: (4) Hx of CABG: (5) Tobacco use: (6) PAD (peripheral artery disease): (7) AAA (abdominal aortic aneurysm): (8) Chronic back pain: (9) CAD (coronary artery disease): (10) VENICE (obstructive sleep apnea): (11) HTN (hypertension): (12) Diabetes mellitus, type II: (13) COPD (chronic obstructive pulmonary disease): Plan: Patient symptoms improved, now chest pain-free. Blood pressure now well controlled with addition of spironolactone. 2D echocardiogram without any significant change. Continue antibiotics as per primary team. Okay to DC from telemetry or to home from a cardiac standpoint. Would discharge home on current medical regimen Admission and Anticipated Discharge Date Admission Date: October 21, 2021 Subjective Patient seen and examined, chart reviewed and case discussed with primary team. Patient states he feels much better today. Denies any chest pain or shortness of breath. Tolerating medication changes without any issues. Review of Systems Review of Systems: All systems reviewed & are unremarkable except as noted in HPI & below Physical Exam Physical Exam: General: Awake, alert and oriented x 3. No acute distress. HEENT: Normocephalic, atraumatic. Pupils equal, round and reactive to light and accommodation. Extraocular muscles are intact. Anicteric sclera. Moist mucous membranes. Neck: No JVD. No bruit. Cardiovascular: irregularly irregular, unable to appreciate murmur, rub or gallop. Pulmonary: Clear to auscultation bilaterally. No rales, rhonchi, or wheezing. Abdomen: Bowel sounds x 4, soft. No rebound, guarding or tenderness. No organomegaly. Extremities: No clubbing, cyanosis or edema. +2 pedal pulses bilaterally. Skin: Warm and dry. Results & Data ([facility]) Vital Signs (Past 12 Hours) Vital Signs Temp Pulse Pulse Resp BP Pulse Ox Pulse Ox 10/23/21 11:03 36.6 C 63 16 118/62 92 10/23/21 11:00 92 10/23/21 07:28 36.6 C 65 16 123/69 92 10/23/21 07:00 64 10/23/21 02:50 36.8 C 64 18 127/70 98 10/23/21 00:59 66 10/22/21 23:19 36.8 C 72 18 116/66 92 Pulse Ox Pulse Ox 10/23/21 11:03 10/23/21 11:00 94 83 L 10/23/21 07:28 10/23/21 07:00 10/23/21 02:50 10/23/21 00:59 10/22/21 23:19
--- NOTE | 2021-10-23 12:02 | Hospitalist Progress Note ---
Date of Service October 23, 2021 Assessment & Plan (1) Hypoxia: Plan: Likely multifactorial: History of COPD, chronic diastolic CHF, sleep apnea and he is a smoker No PE on initial CT read. No congestion as per conversation with teleradiologist. Some atelectasis noted as per radiologist initial read. Chronic diastolic heart failure (EF 60-65%, TTE 2020 ), BNP is minimally elevated Atrial flutter status post cardioversion on Eliquis, px NSR Heart rate was minimally elevated at rest 95 on admission Likely had component of acute on chronic heart failure Saturating normally on 2 L of oxygen via nasal cannula Denies any shortness of breath at rest Get PT and OT evaluation and 2 step O2 saturation test tomorrow Will need 3 L at rest and 4 with exertion on discharge We will continue cefdinir for a total of 7 days to cover bronchitis as well as UTI Increasing troponins Chest pain with troponin elevation Secondary to uncontrolled blood pressure Possible musculoskeletal component given reproducibility on examination Rule out ACS, hx CAD status post CABG/stent Echo remains unremarkable Appreciate cardiology input and recommendation Atrial flutter status post cardioversion on Eliquis, px NSR Heart rate was minimally elevated at rest 95 on admission Has been on high-dose beta-ning Heart rate is controlled Continue Eliquis, aspirin and Plavix Hypertension Continue beta-ning and lisinopril DM2 insulin requiring, patient markedly hyperglycemic secondary to missed PM insulin because he was not feeling well last night Well-controlled as of recent hemoglobin A1c of 29 June 2021 Basal insulin adjusted for n.p.o. status, ISS BG goal 1 10-1 40 Chronic anemia, Hemoglobin at baseline Mixed dementia on Aricept, Patient mentating well Lung nodule, 15 mm cavitary lesion on follow-up outpatient CT chest [facility] [place] [facility] Pulmonology follow-up for pulmonary nodule Possible UTI on 3-day course of Cipro, outpatient UA pending Follow outpatient UA result,-no significant growth He has been getting Cefdinir 300 mg BID Ongoing tobacco abuse DVT prophylaxis. Eliquis if no procedure contemplated Full code Patient requests for to be updated of plan of care. Ms. Sammi Oakley, contact #[phone]. Likely discharge this afternoon Admission and Anticipated Discharge Date Admission Date: October 21, 2021 Subjective 10/22/2021 The patient was seen and examined in telemetry unit He has been feeling much better and denies any significant symptoms at rest His blood pressure is maintained 10/23/2021 The patient was seen and examined in telemetry unit He has been feeling much better and denies any significant symptoms No shortness of breath, chest pain or palpitation at rest He has had PT evaluation and also 2 steps O2 saturation test done He will be discharged home this afternoon Review of Systems Review of Systems: All systems reviewed and are unremarkable except as mentioned below Respiratory: No shortness of breath at rest Cardiovascular: Additional Comments: No palpitation and no chest pain Physical Exam Physical Exam: Lying in bed comfortably Constitutional: well developed, well nourished and + obese; not ill appearing Eyes: PERRL, conjunctivae normal, anicteric sclerae ENMT: external ear and nose normal, oropharynx normal Neck: trachea midline, no thyromegaly Respiratory: no respiratory distress Auscultation: lungs clear to auscultation bilaterally and + diminished lung sounds Cardiovascular: Rate/Rhythm: + irregularly irregular Heart Sounds: normal S1 and normal S2; no murmur Extremities: + edema (1+ edema bilaterally) Gastrointestinal (Abdomen): Inspection/Auscultation: normal bowel sounds; abdomen not distended Percussion/Palpation: abdomen soft; abdomen nontender Musculoskeletal: no cyanosis or clubbing, extremities motor strength 5/5 Neurologic: normal touch/pain/proprioception and CN's II-XI intact bilaterally Results & Data Results & Data ([facility]) Vital Signs (Past 12 Hours) Vital Signs Temp Pulse Pulse Resp BP Pulse Ox Pulse Ox 10/23/21 11:03 36.6 C 63 16 118/62 92 10/23/21 11:00 92 10/23/21 07:28 36.6 C 65 16 123/69 92 10/23/21 07:00 64 10/23/21 02:50 36.8 C 64 18 127/70 98 10/23/21 00:59 66 Pulse Ox Pulse Ox 10/23/21 11:03 10/23/21 11:00 94 83 L 10/23/21 07:28 10/23/21 07:00 10/23/21 02:50 10/23/21 00:59 Laboratory Results BMP 10/23/21 05:44 Sodium 137 Potassium 4.0 Chloride 104 Carbon Dioxide 27 BUN 21 Creatinine 1.11 Glucose 178 H Calcium 8.5 Urine 10/22/21 Range/Units 15:25 Urine Color Dark Yellow Urine Appearance Clear (Clear) Urine pH 5.5 (4.5-7.5) Ur Specific [place] 1.024 (1.000-1.030) Urine Protein 1+ H (Negative) Urine Glucose (UA) 1+ H (Negative) Medications Administered Current Inpatient Medications Acetaminophen (Acetaminophen 325 Mg Tab) 650 mg PO Q4H PRN PRN Reason: Pain or Fever Stop: 11/20/21 08:01 Last Admin: 10/21/21 15:02 Dose: 650 mg Documented by: Apixaban (Apixaban 5 Mg Tablet) 5 mg PO BID [facility] Stop: 11/20/21 10:59 Last Admin: 10/23/21 08:10 Dose: 5 mg Documented by: Aspirin (Aspirin 81 Mg Ectab) 81 mg PO QAM [facility] Stop: 11/21/21 08:59 Last Admin: 10/23/21 08:10 Dose: 81 mg Documented by: Atorvastatin Calcium (Atorvastatin 40 Mg Tab) 80 mg PO [facility] Stop: 11/20/21 20:59 Last Admin: 10/22/21 20:10 Dose: 80 mg Documented by: Cefdinir (Cefdinir 300 Mg Cap) 300 mg PO Q12 [facility] Stop: 10/26/21 20:59 Last Admin: 10/23/21 08:10 Dose: 300 mg Documented by: Clopidogrel Bisulfate (Clopidogrel Bisulfate 75 Mg Tab) 75 mg PO QAM [facility] Stop: 11/20/21 08:59 Last Admin: 10/23/21 08:10 Dose: 75 mg Documented by: Dextrose (Dextrose 50% 50 Ml Syringe) 25 - 50 ml IV UD PRN; Protocol PRN Reason: Hypoglycemia Protocol Stop: 11/20/21 06:23 Donepezil HCl (Donepezil Hcl 10 Mg Tab) 10 mg PO [facility] Stop: 11/20/21 20:59 Last Admin: 10/22/21 20:11 Dose: 10 mg Documented by: Gabapentin (Gabapentin 600 Mg Tab) 600 mg PO BID [facility] Stop: 11/20/21 20:59 Last Admin: 10/23/21 08:10 Dose: 600 mg Documented by: Glucagon (Glucagon For Inj 1 Mg Vial) 1 mg SQ UD PRN; Protocol PRN Reason: Hypoglycemia Protocol Stop: 11/20/21 06:23 Glucose (Glucose 10 Tabs/Tube) 4 - 8 tabs PO UD PRN; Protocol PRN Reason: Hypoglycemia Protocol Stop: 11/20/21 06:23 Glucose (Glucose 40% Gel 15 Gm Tube) 15 - 30 gm PO UD PRN; Protocol PRN Reason: Hypoglycemia Protocol Stop: 11/20/21 06:23 Promethazine HCl 12.5 mg/ (Sodium Chloride) 50.5 mls @ 202 mls/hr IV Q6H PRN PRN Reason: Nausea And Vomiting Stop: 11/20/21 06:23 Insulin Aspart (Insulin Aspart Per Unit) 0 units SC ACHS [facility] Stop: 11/20/21 06:24 Last Admin: 10/23/21 08:17 Dose: 6 units Documented by: Insulin Glargine (Insulin Glargine Solostar 100 Units/Ml 3 Ml Pen) 25 units SC BID [facility] Stop: 11/21/21 08:59 Last Admin: 10/23/21 08:17 Dose: 25 units Documented by: Isosorbide Mononitrate (Isosorbide [place] Extended Rel 60 Mg Tabcr) 60 mg PO [facility] Stop: 11/20/21 08:59 Last Admin: 10/23/21 08:10 Dose: 60 mg Documented by: Lisinopril (Lisinopril 5 Mg Tab) 5 mg PO [facility] Stop: 11/20/21 20:59 Last Admin: 10/22/21 20:11 Dose: 5 mg Documented by: Metoprolol Tartrate (Metoprolol Tartrate 100 Mg Tab) 100 mg PO BID [facility] Stop: 11/20/21 20:59 Last Admin: 10/23/21 08:10 Dose: 100 mg Documented by: Miscellaneous (Carbohydrates For Hypoglycemia ) 15 - 30 gm PO UD PRN PRN Reason: Hypoglycemia Protocol Stop: 11/20/21 06:23 Morphine Sulfate (Morphine Sulfate 2 Mg/Ml Carp) 2 mg IV Q3H PRN PRN Reason: Pain Stop: 11/04/21 08:01 Nitroglycerin (Nitroglycerin Sl 0.4 Mg/Tab Tab) 0.4 mg SL UD PRN PRN Reason: Chest Pain Stop: 11/20/21 08:01 Nortriptyline HCl (Nortriptyline Hcl 25 Mg Cap) 75 mg PO [facility] Stop: 11/20/21 20:59 Last Admin: 10/22/21 20:12 Dose: 75 mg Documented by: Pantoprazole Sodium (Pantoprazole 40 Mg Tab) 40 mg PO QAM [facility] Stop: 11/20/21 08:59 Last Admin: 10/23/21 08:10 Dose: 40 mg Documented by: Spironolactone (Spironolactone 25 Mg Tab) 25 mg PO QAM [facility] Stop: 11/20/21 10:59 Last Admin: 10/23/21 08:10 Dose: 25 mg Documented by: Trazodone HCl (Trazodone Hcl 100 Mg Tab) 100 mg PO [facility] Stop: 11/20/21 20:59 Last Admin: 10/22/21 20:11 Dose: 100 mg Documented by: Umeclidinium/Vilanterol (Umeclidinium/Vilanterol 62.5/25mcg 7 Puffs/Inhaler) 1 puffs INH DAILY [facility] Stop: 11/20/21 08:59 Last Admin: 10/23/21 08:11 Dose: 1 puffs Documented by:
--- NOTE | 2021-10-24 07:50 | Discharge Summary ---
Date of Service October 24, 2021 Admission HPI Per Admitting Provider History obtained from patient, family, and records. Medical history significant for chronic diastolic heart failure (EF 60-65%, TTE 2020 ), CAD status post CABG/stent, atrial flutter status post cardioversion on Eliquis, hx TIA, PVD, hypertension, hyperlipidemia, DM2 insulin requiring, history DVT, chronic anemia (baseline hemoglobin 11-12 ), mixed dementia as per records, lung nodule, ongoing tobacco abuse. Last confinement June 2021 for CHF and new onset atrial flutter. Patient underwent HEAVENLY cardioversion. Discharged on Eliquis for anticoagulation. Few days history of worsening shortness of breath mostly on exertion and intermittent chest pain symptoms similar to anginal attack as per patient. Patient worried about atrial flutter recurrence. Patient saw PCP yesterday. EKG done at the office. No A. fib or a flutter on EKG as per patient. Patient also told his PCP about dysuria symptoms without hematuria/fever/chills. Ciprofloxacin prescribed by PCP for presumptive UTI symptoms. UA pending at [facility] as per patient. Patient skipped his insulin last night because he went to bed not feeling well and not hungry. Few hours ago, patient noted worsening left-sided chest pain with shortness of breath. Chest pain pleuritic. No unusual cough symptoms. No fluid retention as per patient. No immediate relief with nitroglycerin intake at home. Some improvement after aspirin administration by EMS. Patient compliant with home medications. Usual stressors at home. Does not check blood pressure. O2 sats 87 on room air upon arrival at the ER. Patient currently comfortable. 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 Admission Exam Per Admitting Provider Physical Exam: GENERAL: Comfortable, Pleasant, obese, no respiratory distress SKIN: Pallor, warm HEENT:Alopecia, pale palpebral conjunctivae, no ptosis, moist buccal mucosa, Nasal cannula in place NECK : Supple, Short neck,no tenderness CHEST : Decreased breath sounds, L Sided chest wall tenderness HEART : RRR, no obvious murmurs ABDOMEN: distention, nontender EXTREMITIES : minimal LE swelling/tenderness, no other conspicuous deformities noted NEUROLOGIC : Coherent, no facial asymmetry, no other gross focality Principal Diagnosis Hypoxia secondary to COPD, pneumonia, chronic diastolic CHF, sleep apnea, atrial flutter on Eliquis, type 2 diabetes, hypertension Discharge Exam Lying in bed comfortably Constitutional well developed, well nourished and + obese; not ill appearing Eyes PERRL, conjunctivae normal, anicteric sclerae ENMT external ear and nose normal, oropharynx normal Neck trachea midline, no thyromegaly Respiratory no respiratory distress Auscultation: lungs clear to auscultation bilaterally and + diminished lung sounds Cardiovascular Rate/Rhythm: + irregularly irregular Heart Sounds: normal S1 and normal S2; no murmur Extremities: + edema (1+ edema bilaterally) Gastrointestinal (Abdomen) Inspection/Auscultation: normal bowel sounds; abdomen not distended Percussion/Palpation: abdomen soft; abdomen nontender Musculoskeletal no cyanosis or clubbing, extremities motor strength 5/5 Neurologic normal touch/pain/proprioception and CN's II-XI intact bilaterally Discharge Data Allergies Allergy/AdvReac Type Severity Reaction Status Date / Time fentanyl AdvReac Mild vomiting Verified 10/21/21 07:30 oxycodone AdvReac Mild vomiting Verified 10/21/21 07:30 propoxyphene AdvReac Mild Nausea - Verified 10/21/21 07:30 Darvocet Consultations 10/21/21 04:56 ED Decision to Admit Stat 10/21/21 05:07 ED Decision to Admit Stat 10/21/21 08:02 Consult Cardiology Routine Ordered Studies 10/21/21 03:13 CT angio chest PE protocol Urgent Hospital Course (1) Hypoxia: Likely multifactorial: History of COPD, chronic diastolic CHF, sleep apnea and he is a smoker No PE on initial CT read. No congestion as per conversation with teleradiologist. Some atelectasis noted as per radiologist initial read. Chronic diastolic heart failure (EF 60-65%, TTE 2020 ), BNP is minimally elevated Atrial flutter status post cardioversion on Eliquis, px NSR Heart rate was minimally elevated at rest 95 on admission Likely had component of acute on chronic heart failure Saturating normally on 2 L of oxygen via nasal cannula Denies any shortness of breath at rest Get PT and OT evaluation and 2 step O2 saturation test tomorrow Will need 3 L at rest and 4 with exertion on discharge We will continue cefdinir for a total of 7 days to cover bronchitis as well as UTI Increasing troponins Chest pain with troponin elevation Secondary to uncontrolled blood pressure Possible musculoskeletal component given reproducibility on examination Rule out ACS, hx CAD status post CABG/stent Echo remains unremarkable Appreciate cardiology input and recommendation Atrial flutter status post cardioversion on Eliquis, px NSR Heart rate was minimally elevated at rest 95 on admission Has been on high-dose beta-ning Heart rate is controlled Continue Eliquis, aspirin and Plavix Hypertension Continue beta-ning and lisinopril DM2 insulin requiring, patient markedly hyperglycemic secondary to missed PM insulin because he was not feeling well last night Well-controlled as of recent hemoglobin A1c of 29 June 2021 Basal insulin adjusted for n.p.o. status, ISS BG goal 1 10-1 40 Chronic anemia, Hemoglobin at baseline Mixed dementia on Aricept, Patient mentating well Lung nodule, 15 mm cavitary lesion on follow-up outpatient CT chest requested by [facility] Pulmonology Pulmonology follow-up for pulmonary nodule Possible UTI on 3-day course of Cipro, outpatient UA pending Follow outpatient UA result,-no significant growth He has been getting Cefdinir 300 mg BID Ongoing tobacco abuse DVT prophylaxis. Eliquis if no procedure contemplated Full code Patient requests for to be updated of plan of care. Ms. Sammi Oakley, contact #[phone]. Likely discharge this afternoon Total Time Total Time Spent Total Time Spent (In Minutes): 35 minutes Discharge Plan Discharge Items Patient Disposition: Home - Self-Care Reason For Visit: RESP FAILURE Discharge Diagnosis: Hypoxia secondary to COPD, pneumonia, chronic diastolic CHF, sleep apnea, atrial flutter on Eliquis, type 2 diabetes, hypertension Condition on Discharge: Fair Activity: Resume your previous activity Non-emergency contact: Primary Care Provider Call non-emergency contact if: you have any medication questions and your symptoms worsen Follow-up/Referrals: Mauri Ordonez MD [Physician] - 11/10/21 3:00 pm (Date & Time 11/10/2021 3:00 PM Provider Mauri Ordonez MD Department Cardiology, [facility] ) Zachariah Duarte DO [Primary Care Provider] - 10/30/21 1:40 pm (Date & Time 10/30/2021 1:40 PM Provider Zachariah Duarte DO Department Family Practice [facility] ) Diet: Heart Healthy and Low Sodium (2gm) Fluids: 1800ml (7 cups) Addtl Attending Provider Instructions: Please take precautions to avoid fall Continue to use your oxygen as advised Finish the course of antibiotic Please take your medications as advised Keep appointments with your healthcare providers You likely need to have repeat CT of the chest in 6-month Pending Studies at Discharge: No Stand-Alone Forms: My [facility], Smoking Cessation Medications and DC Order Prescriptions: New aspirin 81 mg Tablet,Delayed Release (Dr/Ec) 81 mg PO QAM 30 Days Qty: 30 RF: 0 spironolactone 25 mg Tablet 25 mg PO QAM 30 Days Qty: 30 RF: 0 cefdinir 300 mg Capsule 300 mg PO Q12 3 Days Qty: 6 RF: 0 Continued atorvastatin 80 mg Tablet 80 mg PO HS RF: 0 clopidogrel 75 mg Tablet 75 mg PO QAM RF: 0 pantoprazole 40 mg Tablet,Delayed Release (Dr/Ec) 40 mg PO QAM RF: 0 magnesium oxide 400 mg magnesium Tablet 400 mg PO HS RF: 0 metoprolol tartrate 100 mg Tablet 100 mg PO BID RF: 0 donepezil [Aricept] 10 mg Tablet 10 mg PO HS RF: 0 nitroglycerin [Nitrostat] 0.4 mg Tablet, Sublingual 0.4 mg sublingual UD MDD 3 doses in 15 minutes PRN (Reason: Chest Pain) RF: 0 gabapentin 600 mg Tablet 600 mg PO TID RF: 0 isosorbide mononitrate 60 mg Tablet Extended Release 24 Hr 60 mg PO BID RF: 0 lisinopril 10 mg Tablet 5 mg PO HS RF: 0 pioglitazone [Actos] 30 mg Tablet 30 mg PO QAM RF: 0 guaifenesin [Mucinex] 600 mg Tablet Extended Release 12hr 600 mg PO Q12H PRN (Reason: cough and congestion) RF: 0 nortriptyline 75 mg Capsule 75 mg PO HS RF: 0 Novolin R Regular U-100 Insuln 100 unit/mL solution 15 unit subcut TIDM RF: 0 Novolin N NPH U-100 Insulin 100 unit/mL suspension 36 unit subcut QAM RF: 0 Novolin N NPH U-100 Insulin 100 unit/mL suspension 25 unit subcut HS RF: 0 furosemide 20 mg tablet 20 mg PO QAM RF: 0 albuterol sulfate 90 mcg/actuation HFA aerosol inhaler 2 puff INHALATION Q4H PRN (Reason: Shortness Of Breath Or Wheezing) RF: 0 Anoro Ellipta 62.5-25 mcg/actuation blister with device 1 inh INHALATION BID RF: 0 trazodone 100 mg tablet 100 mg PO HS RF: 0 Eliquis 5 mg Tablet 5 mg PO BID Qty: 30 RF: 0 Discharge Orders: Discharge Order (Routine); Ordered 10/23/21 Ordered By: Myron Bergman/Other Patient Handouts: High Blood Sugar (Hyperglycemia), Managing Type 2 Diabetes Admission Data Admit Date/Time: 10/21/21 06:21 Attending Provider: Myron Stafford Admit Provider: Jose Kessler Primary Care Provider: Zachariah Duarte Other Providers: Jose Kessler ; Greg Blair ; Marco Antonio Joseph ; Mauri Ordonez ; Kaleb Paul ; Kanu Dee ; Jj Wilkerson ; Faby Singleton ; Jessica Patterson ; Shanta Cortes ; Gavin Haynes Other Interventions: Discharge Summary Assessment (RN) Last Done: 10/23/21 14:21
--- NOTE | 2021-10-29 15:22 | Coding Query ---
CONGESTIVE HEART FAILURE The patient did not present with Acute CHF. Has Chronic diastolic CHF and did not have any exacerbation-Cardiology note did not have any documentation of CHF. To Promote full compliance with coding requirements relating to patient care, physician participation is requested in all cases of criminalist uncertainty. Please assist us with the following questions. A diagnosis of Congestive Heart Failure is documented in the patient's medical record ( Discharge Summary - acute on chronic heart failure) . To accurately code this diagnosis and to compare patient severity, we ask that you specify the type of heart failure by placing an X within the parenthesis (x). SYSTOLIC HEART FAILURE ( ) Acute ( ) Chronic ( ) Acute on Chronic ( ) Rheumatic ( ) Unknown DIASTOLIC HEART FAILURE ( ) Acute ( ) Chronic ( ) Acute on Chronic ( ) Rheumatic ( ) Unknown COMBINED SYSTOLIC AND DIASTOLIC HEART FAILURE ( ) Acute ( ) Chronic ( ) Acute on Chronic ( ) Rheumatic ( ) Unknown Was the CHF Present On Admission? Please check the appropriate box: ( ) Present on Admission ( +) Not Present On Admission ( ) Clinically undetermined Thank you SAMMI Healy [facility]
--- NOTE | 2021-10-30 07:00 | Coding Query ---
CODING QUERY To promote full compliance with coding requirements relating to patient care, provider participation is requested in all cases of psychology professor uncertainty. Please assist us with the question(s) below: Coding Question(s): Patient admitted with chest pain and shortness of breath- hypoxic , 87% oxymetry in ED. Discharge summary documented multifactoral - including heart failure. Please check below the type of diastolic heart failure that was treated during this Inpatient stay. Thanks for your help! Eddy Malcolm [facility] Physician's Response(s): acute diastolic heart failure POA acute on chronic diastolic heart failure, POA x chronic diastolic heart failure , POA unspecified diastolic heart failure, POA Chronic Diastolic failure is a chronic medical condition. Principal Diagnosis: "that condition established after study, to be chiefly responsible for occasioning the admission of the patient to the hospital for care." Co-Existing Principal Diagnosis: "when two or more diagnoses equally meet the criteria for principal diagnosis as determined by the circumstances of admission, diagnostic work up, and/or therapy provided, and the Alphabetic Index, Tabular List, or another coding guideline does not provide sequencing direction, any one of the diagnoses may be sequenced first." "When the physician has documented what appears to be a current diagnosis in the body of the record, but has not included the diagnosis in the final diagnostic statement, the physician should be asked whether the diagnosis should be added." (Source Coding [facility] 2 QTR90. p3-4) JERRICA
== END 2021-10-23 16:33 | disposition home or self-care (01) | DRG 292 ==
LOC: ED 03:04 → SUATTDRO 06:21 → 2S 06:21

== ENCOUNTER 2023-01-21 14:08 | Inpatient (IN) ==
[2023-01-21] MEDS ORDERED: SODIUM CHLORIDE 0.9% 500 ML IV SCH (15:00)
[2023-01-21 15:09] LABS: Basophils # (auto) 0.05 K/uL (0-0.2); Basophils % (auto) 0.4 %; Eosinophils # (auto) 0.13 K/uL (0-0.50); Eosinophils % (auto) 1.1 %; Hematocrit (blood only) 46.8 % (42.0-52.0); Hemoglobin 16.2 g/dl (14.0-18.0); Immature Granulocytes # (auto) 0.04 K/uL (0.01-0.20); Immature Granulocytes % (auto) 0.4 %; Lymphocytes # (auto) 2.68 K/uL (1.2-3.4); Lymphocytes % (auto) 23.7 %; Mean Corpuscular Hemoglobin 31.3 pg (25.0-34.0); Mean Corpuscular Hgb Conc 34.6 g/dL (32.0-36.0); Mean Corpuscular Volume 90.3 fL (80.0-100.0); Mean Platelet Volume 9.5 fL (9.4-12.4); Monocytes # (auto) 0.72 K/uL (0.11-0.59); Monocytes % (auto) 6.4 %; Neutrophils # (auto) 7.69 K/uL (1.40-6.50); Platelet Count 260 K/uL (130-400); RDW Coefficient of Variation 12.6 % (11.5-14.5); RDW Standard Deviation 41.9 fL (36.4-46.3); Red Blood Count 5.18 M/uL (4.70-6.10); White Blood Count 11.31 K/ul (4.8-10.8)
--- NOTE | 2023-01-21 15:15 | XRay Report ---
XR chest 1V portable CLINICAL HISTORY: weakness TECHNIQUE: Single frontal radiograph of the chest was obtained. Comparison: Comparison is made to chest radiograph 06/23/2021 FINDINGS: Median sternotomy wires are unchanged. Cardiomegaly is noted. The aortic arch is calcified. Reticular interstitial opacities are seen. No evidence of pleural effusion or pneumothorax. IMPRESSION: No acute chest disease. ACT 112: Negative or not required by law. Electronically signed by: Tavo Hayden M.D. 01/21/2023 3:14 PM
--- NOTE | 2023-01-21 15:21 | Emergency Department Note ---
Impression & Plan Weakness, Closed T12 fracture, Closed fracture of transverse process of lumbar vertebra, Leukocytosis ED Provider Note NAME: ALIYAH GUARDADO AGE: 77 SEX: M : 1945 ARRIVES VIA: Ambulance INFORMANT: [Patient][family] ED PROVIDER(S): [Fei Johnson MD] CHIEF COMPLAINT: Leg weakness, bilateral HISTORY OF PRESENT ILLNESS: The patient is a 77-year-old male who states that a few weeks ago, he fell. He injured his lower back. He was seen for the fall and no significant injury was found. He is still swollen and bruised in the area. He has not been quite himself since the fall but today, around 4 to 5 hours ago, he suddenly felt so weak he could not stand on his own. He could not get out of the chair. He was able to walk earlier in the day today. The patient complains of some ongoing lower back pain but no pain at the present. The pain seems to be around and giving him notice when he is moving. He is not short of breath, there has been no cough or congestion or chest pain. No vomiting diarrhea, no urinary complaints. No fever. The patient does state he is thirsty. PMHx/PSHx: See Below SOCIAL HISTORY: See Below. PHYSICAL EXAM: GENERAL: Patient is in no acute distress. HEENT: No acute trauma, normocephalic atraumatic, mucous membranes dry, no nasal congestion. NECK: No stridor, no adenopathy, no meningismus, trachea is midline. LUNGS: Clear to auscultation bilaterally, no wheeze, no rhonchi, breath sounds equal. HEART: 2/6 systolic murmur heard best at the right sternal border. Regular rate and rhythm. ABDOMEN: Soft, nontender, bowel sounds positive, no peritonitis. EXTREMITIES: No cyanosis or edema, full range of motion of all the joints without pain or difficulty, no signs for acute trauma. NEUROLOGIC: Oriented x 3, no acute motor or sensory deficits, no focal weakness. Able to lift both legs off the bed without difficulty. SKIN: No rash, no jaundice, no diaphoresis. Back: There is an older contusion to the right lumbar musculature. This area is tender to palpate. DIFFERENTIAL DIAGNOSIS: Dehydration, electrolyte imbalance, renal or liver failure, spinal stenosis, spinal fracture, intracranial bleeding, infection, UTI, among others. EMERGENCY DEPARTMENT COURSE/PROCEDURES: Prior/Outside records reviewed: EMS notes. ECG per my interpretation: Patient was weakness. The ECG shows a sinus bradycardia with a first-degree AV block. The rate is 56. LVH is present. There is no ST elevation, no PVCs. There is a borderline left bundle branch block. The QTc is 478. Continuous Cardiac Monitoring per my interpretation: An order was placed for continuous cardiac monitoring. The monitor shows a rate of 56 with sinus bradycardia with a first-degree AV block. MEDICAL DECISION MAKING: There is a mild leukocytosis, this could be consistent with the stress of his presentation or potentially infection. There is a normal hemoglobin and platelet count. INR was elevated, this is consistent with his Coumadin use. No electrolyte abnormality in need of emergent correction. Lactic acid level was not elevated making severe sepsis less likely. No concerning liver enzyme elevation. Ammonia level was not elevated. ECG showed a sinus bradycardia, no ischemia. Cardiac enzyme testing is not consistent with acute cardiac injury. Patient appeared to be in a euthyroid state. Urinalysis did not show infection. COVID test was negative. Chest x-ray per my review did not show mediastinal widening, pneumonia or pneumothorax. Brain CT showed no acute bleed or mass effect. CT of the lumbar spine was performed, there was a T12 fracture which appeared stable. There was an L1 right transverse process fracture. Patient received IV saline, 1 L in total. He did not require anything for pain. The patient attempted to walk. His legs were weak and would give out on him. He was in no condition for discharge home. The cause for the weakness is unclear. The back pain can be explained by the fractures found on CT imaging. The patient does require a hospital stay. I spoke with the patient and case management, the on-call hospitalist was consulted. DISPOSITION: Patient's presentation and findings warrant a hospital stay. 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 Beliefs That Will Affect Care: None marital status: Current Living Situation: Spouse Current Living Situation Comment: ranch home How many Children do You have: 3 Other Information That Helps Us Care for You: No Feels Safe at Home: Yes Safety Concerns: Feels Safe At This Time Assistive Devices: Cane, Scooter/Electric Scooter and Walker Allergies Allergies Allergy/AdvReac Type Severity Reaction Status Date / Time fentanyl AdvReac Intermediate vomiting Verified 01/21/23 17:11 oxycodone AdvReac Intermediate vomiting Verified 01/21/23 17:11 propoxyphene AdvReac Intermediate Nausea - Verified 01/21/23 17:11 Darvocet Home Meds Home Medications Medication Instructions Recorded Confirmed atorvastatin 80 mg tablet 80 mg PO HS 03/01/19 01/21/23 clopidogrel 75 mg tablet 75 mg PO QAM 03/01/19 01/21/23 insulin NPH isoph U-100 human 100 25 unit subcut HS 03/01/19 01/21/23 unit/mL subcutaneous suspension (Novolin N NPH U-100 Insulin isophane) insulin NPH isoph U-100 human 100 36 unit subcut QDL 03/01/19 01/21/23 unit/mL subcutaneous suspension (Novolin N NPH U-100 Insulin isophane) insulin regular human 100 unit/mL 15 unit subcut TIDM 03/01/19 01/21/23 injection solution (Novolin R Regular U-100 Insulin) isosorbide mononitrate 60 mg 60 mg PO BID 03/01/19 01/21/23 tablet,extended release 24 hr magnesium oxide 400 mg PO HS 03/01/19 01/21/23 metoprolol tartrate 100 mg tablet 100 mg PO BID 03/01/19 01/21/23 nitroglycerin 0.4 mg sublingual 0.4 mg sublingual UD PRN Chest Pain 03/01/19 01/21/23 tablet (Nitrostat) nortriptyline 75 mg capsule 75 mg PO HS 03/01/19 01/21/23 pantoprazole 40 mg tablet,delayed 40 mg PO QAM 03/01/19 01/21/23 release trazodone 100 mg tablet 100 mg PO HS PRN Sleep 06/23/21 01/21/23 furosemide 20 mg tablet 20 mg PO QAM 10/21/21 01/21/23 acetaminophen 500 mg tablet 1,000 mg PO BID 01/21/23 01/21/23 (Tylenol Extra Strength) albuterol sulfate 2.5 mg/3 mL 2.5 mg inhalation DIRECTED PRN 01/21/23 01/21/23 (0.083 %) solution for nebulization Shortness Of Breath albuterol sulfate 5 mg/mL(0.5 %) 2.5 mg inhalation DIRECTED PRN 01/21/23 01/21/23 solution for nebulization Shortness Of Breath docusate sodium 100 mg capsule 100 mg PO BID 01/21/23 01/21/23 (Colace) famotidine 20 mg tablet 20 mg PO BID PRN Heartburn 01/21/23 01/21/23 ipratropium 0.5 mg-albuterol 3 mg 3 ml inhalation TID 01/21/23 01/21/23 (2.5 mg base)/3 mL nebulization soln memantine 5 mg tablet 5 mg PO BID 01/21/23 01/21/23 ondansetron HCl 4 mg tablet 4 mg PO Q6H PRN NAUSEA/VOMITING 01/21/23 01/21/23 ranolazine 500 mg tablet,extended 500 mg PO Q12H 01/21/23 01/21/23 release,12 hr umeclidinium 62.5 mcg/actuation 1 inh inhalation DAILY 01/21/23 01/21/23 blister powder for inhalation (Incruse Ellipta) warfarin 5 mg tablet 2.5 mg PO SUMOTUWETHSA@1600 01/21/23 01/21/23 warfarin 5 mg tablet 5 mg PO FR@1600 01/21/23 01/21/23 Results & Data (ED) Vital Signs Vital Signs - 24 hr 01/21/23 14:11 01/21/23 14:11 01/21/23 14:49 Temperature 36.7 C 36.7 C Temperature Source Oral Oral Pulse Rate 56 L 56 L Pulse Rate [Right Finger] 56 L Pulse Rhythm Regular Regular Pulse Rhythm [Right Finger] Regular Pulse Strength Normal Pulse Strength [Right Finger] Normal Respiratory Rate 19 19 19 Respiratory Effort / Characteristics Non-Labored Spontaneous Non-Labored Spontaneous Respiratory Depth Normal Normal Respiratory Pattern Regular Regular Blood Pressure 125/55 L Blood Pressure [Right Arm] 125/55 L Blood Pressure Mean 78 Blood Pressure Mean [Right Arm] 78 Blood Pressure Position Lying Blood Pressure Position [Right Arm] Lying Pulse Oximetry 92 92 94 Oxygen Delivery Method Room Air Room Air Room Air Sepsis Recent Fever Within 48 Hours No Sepsis New/Unexplained Change in Mental Status No Sepsis Action Taken by Nursing No Action Required 01/21/23 16:10 Temperature Temperature Source Pulse Rate 58 L Pulse Rate [Right Finger] Pulse Rhythm Pulse Rhythm [Right Finger] Pulse Strength Pulse Strength [Right Finger] Respiratory Rate Respiratory Effort / Characteristics Respiratory Depth Respiratory Pattern Blood Pressure Blood Pressure [Right Arm] Blood Pressure Mean Blood Pressure Mean [Right Arm] Blood Pressure Position Blood Pressure Position [Right Arm] Pulse Oximetry Oxygen Delivery Method Sepsis Recent Fever Within 48 Hours Sepsis New/Unexplained Change in Mental Status Sepsis Action Taken by [facility] Medications Current Medication List: was personally reviewed by me Laboratory Data Attestation: I reviewed the patient's lab results. 01/21/23 14:20 01/21/23 14:20 Lab Results 01/21/23 01/21/23 01/21/23 Range/Units 14:20 14:20 14:20 WBC 11.31 H (4.8-10.8) K/ul RBC 5.18 (4.70-6.10) M/uL Hgb 16.2 (14.0-18.0) g/dl Hct 46.8 (42.0-52.0) % MCV 90.3 (80.0-100.0) fL MCH 31.3 (25.0-34.0) pg MCHC 34.6 (32.0-36.0) g/dL RDW Std Deviation 41.9 (36.4-46.3) fL RDW Coeff of Geremias 12.6 (11.5-14.5) % Plt Count 260 (130-400) K/uL MPV 9.5 (9.4-12.4) fL Immature Gran % (Auto) 0.4 % Neut % (Auto) 68.0 % Lymph % (Auto) 23.7 % [place] % (Auto) 6.4 % Eos % (Auto) 1.1 % Baso % (Auto) 0.4 % Neut # (Auto) 7.69 H (1.40-6.50) K/uL Lymph # (Auto) 2.68 (1.2-3.4) K/uL [place] # (Auto) 0.72 H (0.11-0.59) K/uL Eos # (Auto) 0.13 (0-0.50) K/uL Baso # (Auto) 0.05 (0-0.2) K/uL Immature Gran # (Auto) 0.04 (0.01-0.20) K/uL PT 11.0 (9.0-12.0) Seconds INR 1.0 (0.9-1.1) APTT 36.1 H (21.0-31.0) Seconds PTT Ratio 1.3 Sodium 139 (136-145) mmol/L Potassium 4.0 (3.5-5.1) mmol/L Chloride 104 (98-107) mmol/L Carbon Dioxide 29 (21-32) mmol/L Anion Gap 6 (3-11) BUN 20 (6-23) mg/dl Creatinine 0.86 (0.6-1.4) mg/dl Est Cr Clr Drug Dosing 53.7 ml/min Est GFR ( Amer) 96.3 ml/min Est GFR (Non-Af Amer) 83.1 ml/min BUN/Creatinine Ratio 23.3 H (10-20) Glucose 89 (70-99(Fasting)) mg/dl Lactate (0.4-2.0) mmol/L Calcium 10.0 (8.6-10.3) mg/dl Magnesium 2.1 (1.7-2.4) mg/dl Total Bilirubin 0.6 (0.2-1.0) mg/dl AST 25 (13-39) U/L ALT 24 (7-52) U/L Alkaline Phosphatase 79 (34-104) U/L Ammonia (18-72) umol/L Troponin I High Sens 2.7 (0-20) pg/ml Total Protein 8.1 (6.0-8.3) gm/dl Albumin 4.9 (3.4-5.0) gm/dl Globulin 3.2 (2.5-4.0) gm/dl Albumin/Globulin Ratio 1.5 (0.9-2) TSH (0.300-4.500) uIu/ml Urine Color Urine Appearance (Clear) Urine pH (4.5-7.5) Ur Specific [place] (1.000-1.030) Urine Protein (Negative) Urine Glucose (UA) (Negative) Urine Ketones (Negative) Urine Blood (Negative) Urine Nitrite (Negative) Urine Bilirubin (Negative) Urine Urobilinogen (Negative) Ur Leukocyte Esterase (Negative) SARS-CoV-2, RNA, NAAT (NEGATIVE) 01/21/23 01/21/23 01/21/23 Range/Units 14:20 15:27 15:32 WBC (4.8-10.8) K/ul RBC (4.70-6.10) M/uL Hgb (14.0-18.0) g/dl Hct (42.0-52.0) % MCV (80.0-100.0) fL MCH (25.0-34.0) pg MCHC (32.0-36.0) g/dL RDW Std Deviation (36.4-46.3) fL RDW Coeff of Geremias (11.5-14.5) % Plt Count (130-400) K/uL MPV (9.4-12.4) fL Immature Gran % (Auto) % Neut % (Auto) % Lymph % (Auto) % [place] % (Auto) % Eos % (Auto) % Baso % (Auto) % Neut # (Auto) (1.40-6.50) K/uL Lymph # (Auto) (1.2-3.4) K/uL [place] # (Auto) (0.11-0.59) K/uL Eos # (Auto) (0-0.50) K/uL Baso # (Auto) (0-0.2) K/uL Immature Gran # (Auto) (0.01-0.20) K/uL PT (9.0-12.0) Seconds INR (0.9-1.1) APTT (21.0-31.0) Seconds PTT Ratio Sodium (136-145) mmol/L Potassium (3.5-5.1) mmol/L Chloride (98-107) mmol/L Carbon Dioxide (21-32) mmol/L Anion Gap (3-11) BUN (6-23) mg/dl Creatinine (0.6-1.4) mg/dl Est Cr Clr Drug Dosing ml/min Est GFR ( Amer) ml/min Est GFR (Non-Af Amer) ml/min BUN/Creatinine Ratio (10-20) Glucose (70-99(Fasting)) mg/dl Lactate 1.2 (0.4-2.0) mmol/L Calcium (8.6-10.3) mg/dl Magnesium (1.7-2.4) mg/dl Total Bilirubin (0.2-1.0) mg/dl AST (13-39) U/L ALT (7-52) U/L Alkaline Phosphatase (34-104) U/L Ammonia (18-72) umol/L Troponin I High Sens (0-20) pg/ml Total Protein (6.0-8.3) gm/dl Albumin (3.4-5.0) gm/dl Globulin (2.5-4.0) gm/dl Albumin/Globulin Ratio (0.9-2) TSH 0.987 (0.300-4.500) uIu/ml Urine Color Urine Appearance (Clear) Urine pH (4.5-7.5) Ur Specific [place] (1.000-1.030) Urine Protein (Negative) Urine Glucose (UA) (Negative) Urine Ketones (Negative) Urine Blood (Negative) Urine Nitrite (Negative) Urine Bilirubin (Negative) Urine Urobilinogen (Negative) Ur Leukocyte Esterase (Negative) SARS-CoV-2, RNA, NAAT NEGATIVE (NEGATIVE) 01/21/23 01/21/23 Range/Units 15:32 17:30 WBC (4.8-10.8) K/ul RBC (4.70-6.10) M/uL Hgb (14.0-18.0) g/dl Hct (42.0-52.0) % MCV (80.0-100.0) fL MCH (25.0-34.0) pg MCHC (32.0-36.0) g/dL RDW Std Deviation (36.4-46.3) fL RDW Coeff of Geremias (11.5-14.5) % Plt Count (130-400) K/uL MPV (9.4-12.4) fL Immature Gran % (Auto) % Neut % (Auto) % Lymph % (Auto) % [place] % (Auto) % Eos % (Auto) % Baso % (Auto) % Neut # (Auto) (1.40-6.50) K/uL Lymph # (Auto) (1.2-3.4) K/uL [place] # (Auto) (0.11-0.59) K/uL Eos # (Auto) (0-0.50) K/uL Baso # (Auto) (0-0.2) K/uL Immature Gran # (Auto) (0.01-0.20) K/uL PT (9.0-12.0) Seconds INR (0.9-1.1) APTT (21.0-31.0) Seconds PTT Ratio Sodium (136-145) mmol/L Potassium (3.5-5.1) mmol/L Chloride (98-107) mmol/L Carbon Dioxide (21-32) mmol/L Anion Gap (3-11) BUN (6-23) mg/dl Creatinine (0.6-1.4) mg/dl Est Cr Clr Drug Dosing ml/min Est GFR ( Amer) ml/min Est GFR (Non-Af Amer) ml/min BUN/Creatinine Ratio (10-20) Glucose (70-99(Fasting)) mg/dl Lactate (0.4-2.0) mmol/L Calcium (8.6-10.3) mg/dl Magnesium (1.7-2.4) mg/dl Total Bilirubin (0.2-1.0) mg/dl AST (13-39) U/L ALT (7-52) U/L Alkaline Phosphatase (34-104) U/L Ammonia 19.0 (18-72) umol/L Troponin I High Sens (0-20) pg/ml Total Protein (6.0-8.3) gm/dl Albumin (3.4-5.0) gm/dl Globulin (2.5-4.0) gm/dl Albumin/Globulin Ratio (0.9-2) TSH (0.300-4.500) uIu/ml Urine Color Yellow Urine Appearance Clear (Clear) Urine pH 5.5 (4.5-7.5) Ur Specific [place] 1.017 (1.000-1.030) Urine Protein Negative (Negative) Urine Glucose (UA) Trace H (Negative) Urine Ketones Negative (Negative) Urine Blood Negative (Negative) Urine Nitrite Negative (Negative) Urine Bilirubin Negative (Negative) Urine Urobilinogen Negative (Negative) Ur Leukocyte Esterase Negative (Negative) SARS-CoV-2, RNA, NAAT (NEGATIVE) Administered Medications Acetaminophen (Acetaminophen 500 Mg Tab) 1,000 mg PO BID [facility] Stop: 02/20/23 20:59 Last Admin: 01/21/23 21:30 Dose: 1,000 mg Documented By: AV Atorvastatin Calcium (Atorvastatin 40 Mg Tab) 80 mg PO HS [facility] Stop: 02/20/23 20:59 Last Admin: 01/21/23 21:30 Dose: 80 mg Documented By: AV Docusate Sodium (Docusate Sodium 100 Mg Cap) 100 mg PO BID [facility] Stop: 02/20/23 20:59 Last Admin: 01/21/23 21:30 Dose: 100 mg Documented By: ALLY Insulin Aspart (Insulin Aspart Per Unit Charge) 0 units SC ACHS [facility] Stop: 02/20/23 20:59 Last Admin: 01/21/23 21:28 Dose: 1 units Documented By: ALLY Co-signed By: DANA Insulin Human NPH (Insulin Human Nph) 0 - 20 units SC Q12H [facility]; Protocol Stop: 02/20/23 20:59 Last Admin: 01/21/23 21:29 Dose: 20 units Documented By: ALLY Co-signed By: DANA Isosorbide Mononitrate (Isosorbide [place] Extended Rel 60 Mg Tabcr) 60 mg PO BID [facility] Stop: 02/20/23 20:59 Last Admin: 01/21/23 21:30 Dose: 60 mg Documented By: AV Magnesium Oxide (Magnesium Oxide 400 Mg Tab) 400 mg PO HS [facility] Stop: 02/20/23 20:59 Last Admin: 01/21/23 21:31 Dose: 400 mg Documented By: AV Memantine (Memantine Hcl 5 Mg Tab) 5 mg PO BID [facility] Stop: 02/20/23 20:59 Last Admin: 01/21/23 21:31 Dose: 5 mg Documented By: AV Metoprolol Tartrate (Metoprolol Tartrate 100 Mg Tab) 100 mg PO BID [facility] Stop: 02/20/23 20:59 Last Admin: 01/21/23 21:31 Dose: 100 mg Documented By: AV Nortriptyline HCl (Nortriptyline Hcl 25 Mg Cap) 75 mg PO HS [facility] Stop: 02/20/23 20:59 Last Admin: 01/21/23 21:31 Dose: 75 mg Documented By: AV Ranolazine (Ranolazine 500 Mg Er Tab) 500 mg PO Q12H [facility] Stop: 02/20/23 20:59 Last Admin: 01/21/23 21:31 Dose: 500 mg Documented By: AV Warfarin Sodium (Warfarin Sod 2.5 Mg Tab) 2.5 mg PO SUMOTUWETHSA@1600 [facility] Stop: 02/20/23 20:59 Last Admin: 01/21/23 21:31 Dose: 2.5 mg Documented By: AV Discontinued Medications Albuterol (Albut/Ipratrop 3mg/0.5mg Neb 3 Ml Vial) 3 ml INH TIDR [facility]; Protocol Stop: 02/20/23 20:59 Last Admin: 01/21/23 21:50 Dose: Not Given Documented By: DREW Sodium Chloride (Nss) 500 mls @ 999 mls/hr IV .Q31M [facility] Stop: 01/21/23 15:30 Last Infusion: 01/21/23 18:08 Dose: 0 mls/hr Documented By: COUNCIL ON AGING DIRECTOR Admin: 01/21/23 15:48 Dose: 999 mls/hr Documented By: COUNCIL ON AGING DIRECTOR Sodium Chloride (Nss 1000ml) 500 mls @ 999 mls/hr IV .Q31M [facility] Stop: 01/21/23 16:25 Last Infusion: 01/21/23 18:08 Dose: 0 mls/hr Documented By: COUNCIL ON AGING DIRECTOR Admin: 01/21/23 16:54 Dose: 999 mls/hr Documented By: S Imaging Data Radiologist's Impression: Chest X-Ray 01/21/23 14:49 XR chest 1V portable CLINICAL HISTORY: weakness TECHNIQUE: Single frontal radiograph of the chest was obtained. Comparison: Comparison is made to chest radiograph 06/23/2021 FINDINGS: Median sternotomy wires are unchanged. Cardiomegaly is noted. The aortic arch is calcified. Reticular interstitial opacities are seen. No evidence of pleural effusion or pneumothorax. IMPRESSION: No acute chest disease. ACT 112: Negative or not required by law. Electronically signed by: Tavo Hayden M.D. 01/21/2023 3:[address] 01/21/23 15:13 CT head/brain wo con CLINICAL HISTORY: confused, weak Technique: Contiguous axial CT images of the head were acquired from the base of the skull to the vertex without intravenous contrast administration. Images were viewed in brain, subdural and bone windows. Automated dose lowering techniques and/or adjustment according to patient size were utilized for this exam. Comparison: Comparison is made to CT head 01/02/2023 Findings: Areas of decreased attenuation are present in the periventricular and subcortical white matter bilaterally consistent with small vessel ischemic disease. Generalized cerebral atrophy with commensurate enlargement of the ventricles, sulci, and cisterns is also present. There is no acute intracranial hemorrhage or evidence of acute territorial infarction. No shift of the midline structures, mass effect, or extra-axial abnormalities are shown. Atherosclerotic calcifications are present in the intracranial segments of the internal carotid arteries. 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 Imaged portions of the paranasal sinuses and mastoid air cells are clear. The orbits appear normal. There are no acute fractures of the calvaria or scalp swelling. Impression: No acute intracranial hemorrhage, no evidence of acute territorial infarction or other acute intracranial disease process. ACT 112: Negative or not required by law. Electronically signed by: Tavo Hayden M.D. 01/21/2023 4:[address] 01/21/23 15:[address] DOSE: 1172.28 mGy.cm HISTORY: fall, low back pain TECHNIQUE: Multiaxial CT images of the lumbar spine were performed and reformatted in the sagittal and coronal plane without the use of contrast. A dose lowering technique was utilized adhering to the principles of ALARA. COMPARISON: Abdomen and pelvis CT 01/02/2023. Lumbar spine CT 12/06/2015. FINDINGS: Mild levoscoliosis of the lumbar spine. Nondisplaced fracture within the right L1 transverse process. This appears to be subacute. There is an acute nondisplaced fracture through the superior endplate of T12 which likely involves the T11-T12 disc space. The posterior elements appear intact. No acute fractures within the lumbar spine. Mild to moderate degenerative disc disease and facet osteoarthritis within the lumbar spine. There is a left L5 pars defect noted. IMPRESSION: 1. Acute nondisplaced fracture through the superior endplate of T12 which likely involves the T11-T12 disc space. The posterior elements appear intact. 2. Nondisplaced right L1 transverse process fracture. This appears to be subacute. ACT 112: Negative or not required by law. Electronically signed by: Norberto Chan M.D. 01/21/2023 4:34 PM Discharge Plan Visit Data Chief Complaint: Leg Weakness, Bilateral ED Provider: Fei Johnson Discharge Problem: Weakness, Closed T12 fracture, Closed fracture of transverse process of lumbar vertebra, Leukocytosis Patient Disposition: Admitted As Inpatient Condition: Fair Discharge Instructions Interventions: ED Discharge Assessment Last Done: 01/21/23 20:10
[2023-01-21 15:23] LABS: Albumin Globulin Ratio 1.5 (0.9-2); Albumin Level 4.9 gm/dl (3.4-5.0); BUN Creatinine Ratio 23.3 (10-20); Bilirubin,Total 0.6 mg/dl (0.2-1.0); Creatinine Clr Calc Pharmacy 53.7 ml/min; Est GFR (African American) 96.3 ml/min; Est GFR (Non-African American) 83.1 ml/min; Globulin 3.2 gm/dl (2.5-4.0); Magnesium 2.1 mg/dl (1.7-2.4); Total Protein 8.1 gm/dl (6.0-8.3)
[2023-01-21 15:29] LABS: Troponin I High Sensitivity 2.7 pg/ml (0-20)
[2023-01-21 15:53] LABS: Partial Thromboplastin Ratio 1.3; Partial Thromboplastin Time 36.1 Seconds (21.0-31.0)
[2023-01-21] MEDS ORDERED: SODIUM CHLORIDE 0.9% 1000ML 500 ML IV ONE (15:55)
--- NOTE | 2023-01-21 16:31 | CT Scan Report ---
CT head/brain wo con CLINICAL HISTORY: confused, weak Technique: Contiguous axial CT images of the head were acquired from the base of the skull to the humza leon without intravenous contrast administration. Images were viewed in brain, subdural and bone [facility]. Automated dose lowering techniques and/or adjustment according to patient size were utilized for this exam. Comparison: Comparison is made to CT head 01/02/2023 Findings: Areas of decreased attenuation are present in the periventricular and subcortical white matter bilate rally consistent with small vessel ischemic disease. Generalized cerebral atrophy with commensurate e nlargement of the ventricles, sulci, and cisterns is also present. There is no acute intracranial hem orrhage or evidence of acute territorial infarction. No shift of the midline structures, mass effect, or extra-axial abnormalities are shown. Atherosclerotic calcifications are present in the intracran ial segments of the internal carotid arteries. 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 Imaged portions of the paranasal sinuses and mastoid air cells are clear. The orbits appear normal. There are no acute fractures of the calvaria or scalp swelling. Impression: No acute intracranial hemorrhage, no evidence of acute territorial infarction or other acute intracra nial disease process. ACT 112: Negative or not required by law. Electronically signed by: Tavo Hayden M.D. 01/21/2023 4:30 PM
--- NOTE | 2023-01-21 16:36 | CT Scan Report ---
LUMBAR SPINE CT CT DOSE: 1172.28 mGy.cm HISTORY: fall, low back pain TECHNIQUE: Multiaxial CT images of the lumbar spine were performed and reformatted in the sagittal an d coronal plane without the use of contrast. A dose lowering technique was utilized adhering to the principles of ALARA. COMPARISON: Abdomen and pelvis CT 01/02/2023. Lumbar spine CT 12/06/2015. FINDINGS: Mild levoscoliosis of the lumbar spine. Nondisplaced fracture within the right L1 transvers e process. This appears to be subacute. There is an acute nondisplaced fracture through the superior endplate of T12 which likely involves the T11-T12 disc space. The posterior elements appear intact. N o acute fractures within the lumbar spine. Mild to moderate degenerative disc disease and facet osteo arthritis within the lumbar spine. There is a left L5 pars defect noted. IMPRESSION: 1. Acute nondisplaced fracture through the superior endplate of T12 which likely involves the T11-T12 disc space. The posterior elements appear intact. 2. Nondisplaced right L1 transverse process fracture. This appears to be subacute. ACT 112: Negative or not required by law. Electronically signed by: Norberto Chan M.D. 01/21/2023 4:34 PM
--- NOTE | 2023-01-21 17:33 | Electrocardiogram Report ---
Test Reason : Blood Pressure : / mmHG Vent. Rate : 056 BPM Atrial Rate : 056 BPM P-R Int : 276 ms QRS Dur : 140 ms QT Int : 496 ms P-R-T Axes : 023 -65 133 degrees QTc Int : 478 ms Sinus bradycardia with 1st degree A-V block Left axis deviation Left bundle branch block Abnormal ECG When compared with ECG of 02-JAN-2023 00:36, No significant change Confirmed by Tevin Miles ([id number]) on 01/21/2023 5:33:14 PM Referred By: REFERRED SELF Confirmed By:Tevin Miles
[2023-01-21 18:03] LABS: Appearance Urine Clear (Clear); Bilirubin Urine Negative (Negative); Blood Urine Negative (Negative); Color Urine Yellow; Glucose Urine UA Trace (Negative); Ketones Urine Negative (Negative); Leukocyte Esterase Urine Negative (Negative); Nitrite Urine Negative (Negative); Protein Urine Negative (Negative); Specific Gravity Urine 1.017 (1.000-1.030); Urobilinogen Urine Negative (Negative); pH Urine 5.5 (4.5-7.5)
--- NOTE | 2023-01-21 19:48 | History & Physical Report ---
Date of Service January 21, 2023 Assessment & Plan (1) Bilateral leg weakness: (2) Ambulatory dysfunction: (3) Vertebral compression fracture: (4) New onset left bundle branch block (LBBB): (5) CAD (coronary artery disease): (6) Atrial flutter: (7) CHF (congestive heart failure): (8) COPD (chronic obstructive pulmonary disease): (9) Diabetes mellitus, type II: Plan This is a 77-year-old male with complex medical issues including chronic hypoxic respiratory failure, COPD, VENICE on CPAP, CAD with history of CABG x3, insulin- dependent T2DM, ectatic abdominal aorta, PAD, diastolic CHF, atrial flutter, CKD stage III, bilateral carotid artery stenosis, long-term anticoagulation, HTN, GERD, dementia, history of TIA, chronic back pain, lumbar disc disorder with myelopathy and gait disturbance who presents to ED due to bilateral leg weakness and inability to walk. Bilateral leg weakness Ambulatory dysfunction Compression fracture Admit to med telemetry CT lumbar spine revealed acute nondisplaced fracture through superior endplate of T12 which likely involves the T11-T12 disc space, also noted is a nondisplaced right L1 transverse process fracture Likely related to patient's fall approximately [address] Cruz orthopedic spine PT and OT Patient likely to need rehab Lidocaine patch, heat at bedside states patient does not tolerate narcotics well including oxycodone and Darvocet New left bundle branch block CAD with history of CABG Atrial flutter on long-term anticoagulation Chronic HFpEF HTN HLD Patient without cardiac complaint, troponin normal Given new left bundle branch block and reported weakness will cycle trops, repeat EKG and obtain echocardiogram Patient currently on atorvastatin, Plavix, Lasix, Imdur, metoprolol tartrate and Ranexa Daily weights Continue warfarin, INR in [facility] was 2.9 today, home regimen of 5 mg on Wednesday and 2.5 mg all other days, will continue Chronic hypoxic respiratory failure COPD VENICE on CPAP Continue nebulizer, Incruse Encourage incentive spirometer No acute exacerbation Insulin-dependent T2DM Last A1c in 2021 5.6 NPH/NovoLog per protocol A1c in a.m. Lumbar spinal stenosis Chronic back pain As above CKD stage III Creatinine baseline, avoid nephrotoxic agent Dementia without mood disturbance Continue namenda DVT ppx: warfarin Dispo: med/tele PCP:Felicia Conditional code: no mech ventilation A total of 95 was spent coordinating, documenting, and providing care for this patient excluding time spent in the performance of separately billed services. This included personally viewing all current laboratories and imaging studies, medication reconciliation, outpatient chart review, and discussion with specialists. Pt was seen and collaborated with Dr. Roberto History of Present Illness Chief Complaint: Bilateral leg weakness & inability to walk. Primary Care Provider: Zachariah Duarte DO This is a 77-year-old male with complex medical issues including chronic hypoxic respiratory failure, COPD, VENICE on CPAP, CAD with history of CABG x3, insulin- dependent T2DM, ectatic abdominal aorta, PAD, diastolic CHF, atrial flutter, CKD stage III, bilateral carotid artery stenosis, long-term anticoagulation, HTN, GERD, dementia, history of TIA, chronic back pain, lumbar disc disorder with myelopathy and gait disturbance who presents to ED due to bilateral leg weakness and inability to walk. Patient's is at bedside. She states he fell backward and onto his back approximately 2 to 3 weeks ago. He has chronic back pain at baseline and feels like this fall exacerbated it. Since then has been having increasing difficulty to move around and has been more sedentary. She does make him get up and ambulate with a walker to and from the bathroom approximately 3 times a day. Patient went into the kitchen and sat down today. She went and asked him if he was ready to go shopping when he was unable to get out of the chair. They contacted [facility] to help get him up and was eventually brought to ED. he denies any fever, chills, sweats, lightheadedness, dizziness, chest pain, worsening shortness of breath, nausea, vomiting, abdominal pain. He does complain of mild dysuria but denies any increased urgency or frequency with urination or hematuria. He moves his bowels every other day. His appetite is otherwise stable. No weight loss or lower extremity swelling. In ED patient remained hemodynamically stable. CBC and CMP was generally unremarkable except for mild elevation in WBC at 11 K. His urinalysis was negative for infection. Lumbar spine CT did reveal an acute nondisplaced fracture through the superior endplate of T12 which likely involves the T11-12 disc space. Also noted was an L1 transverse process fracture which appears to be subacute. Patient does state he does have a prior history of laminectomy back in 2012. Head CT negative for any acute abnormality. Allergies Allergy/AdvReac Type Severity Reaction Status Date / Time fentanyl AdvReac Intermediate vomiting Verified 01/21/23 17:11 oxycodone AdvReac Intermediate vomiting Verified 01/21/23 17:11 propoxyphene AdvReac Intermediate Nausea - Verified 01/21/23 17:11 Darvocet Home Medications Medication Instructions Recorded Confirmed Type atorvastatin 80 mg tablet 80 mg PO HS 03/01/19 01/21/23 History clopidogrel 75 mg tablet 75 mg PO QAM 03/01/19 01/21/23 History insulin NPH isoph U-100 human 100 25 unit subcut HS 03/01/19 01/21/23 History unit/mL subcutaneous suspension (Novolin N NPH U-100 Insulin isophane) insulin NPH isoph U-100 human 100 36 unit subcut QDL 03/01/19 01/21/23 History unit/mL subcutaneous suspension (Novolin N NPH U-100 Insulin isophane) insulin regular human 100 unit/mL 15 unit subcut TIDM 03/01/19 01/21/23 History injection solution (Novolin R Regular U-100 Insulin) isosorbide mononitrate 60 mg 60 mg PO BID 03/01/19 01/21/23 History tablet,extended release 24 hr magnesium oxide 400 mg PO HS 03/01/19 01/21/23 History metoprolol tartrate 100 mg tablet 100 mg PO BID 03/01/19 01/21/23 History nitroglycerin 0.4 mg sublingual 0.4 mg sublingual UD PRN Chest Pain 03/01/19 01/21/23 History tablet (Nitrostat) nortriptyline 75 mg capsule 75 mg PO HS 03/01/19 01/21/23 History pantoprazole 40 mg tablet,delayed 40 mg PO QAM 03/01/19 01/21/23 History release trazodone 100 mg tablet 100 mg PO HS PRN Sleep 06/23/21 01/21/23 History furosemide 20 mg tablet 20 mg PO QAM 10/21/21 01/21/23 History acetaminophen 500 mg tablet 1,000 mg PO BID 01/21/23 01/21/23 History (Tylenol Extra Strength) albuterol sulfate 2.5 mg/3 mL 2.5 mg inhalation DIRECTED PRN 01/21/23 01/21/23 History (0.083 %) solution for nebulization Shortness Of Breath albuterol sulfate 5 mg/mL(0.5 %) 2.5 mg inhalation DIRECTED PRN 01/21/23 01/21/23 History solution for nebulization Shortness Of Breath docusate sodium 100 mg capsule 100 mg PO BID 01/21/23 01/21/23 History (Colace) famotidine 20 mg tablet 20 mg PO BID PRN Heartburn 01/21/23 01/21/23 History ipratropium 0.5 mg-albuterol 3 mg 3 ml inhalation TID 01/21/23 01/21/23 History (2.5 mg base)/3 mL nebulization soln memantine 5 mg tablet 5 mg PO BID 01/21/23 01/21/23 History ondansetron HCl 4 mg tablet 4 mg PO Q6H PRN NAUSEA/VOMITING 01/21/23 01/21/23 History ranolazine 500 mg tablet,extended 500 mg PO Q12H 01/21/23 01/21/23 History release,12 hr umeclidinium 62.5 mcg/actuation 1 inh inhalation DAILY 01/21/23 01/21/23 History blister powder for inhalation (Incruse Ellipta) warfarin 5 mg tablet 2.5 mg PO SUMOTUWETHSA@1600 01/21/23 01/21/23 History warfarin 5 mg tablet 5 mg PO FR@1600 01/21/23 01/21/23 History Past Med/Surg History Medical History AAA (abdominal aortic aneurysm) Angina pectoris CAD (coronary artery disease) s/p angioplasty RCA in 1988, s/p CABG x 3 in 1997; NSTEMI demand ischemia after spinal surgery in 2012; S/P DWAYNE and angioplasty left circumflex in 2016 Chronic back pain COPD (chronic obstructive pulmonary disease) Diabetes Diabetes mellitus, type II GERD (gastroesophageal reflux disease) HLD (hyperlipidemia) HTN (hypertension) 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 Brendon Royal at [facility] Surgical History H/O angioplasty History of cardiac cath History of cataract surgery S/P triple vessel bypass Family History Other Diabetes Heart disease Stroke Social History Smoking Status: Former smoker Tobacco Type: Cigarettes Cigarettes Per Day: 2 per week; Second Hand Exposure: No; Do You Dip or Chew Tobacco: No; Hx Alcohol Use: No Hx Substance Use: Yes Substance Use Type Other:: Medical marijuana/RSO Gummies Preferred Language: Czech Communication Ability: Effective Dye Box Operator Required: No Beliefs That Will Affect Care: None marital status: Current Living Situation: Spouse Current Living Situation Comment: ranch home How many Children do You have: 3 Other Information That Helps Us Care for You: No Feels Safe at Home: Yes Safety Concerns: Feels Safe At This Time Assistive Devices: Cane, Scooter/Electric Scooter and Walker Review of Systems Review of Systems: All systems reviewed & are unremarkable except as noted in HPI & below Physical Exam Physical Exam: Constitutional: Elderly male, lying in bed, hard of hearing,WD/WN, vitals as above, NAD, sitting up in bed, pleasant, conversing easily Head: Normocephalic, Atraumatic Eyes: PERRL, conjunctivae normal, anicteric sclerae ENMT: external ear and nose normal, oropharynx normal Neck: trachea midline, no thyromegaly normal visual inspection Respiratory: normal respiratory effort, decreased breath sounds at bases, lungs clear to auscultation, no wheeze, rales, rhonchi. Normal insp/exp effort, no accessory muscle use Cardiovascular: RRR, 2 out of 6 KRISTYN right sternal border, no edema Vessels: no JVD or carotid bruit Chest: normal inspection of chest Abdomen: normal bowel sounds, soft, nontender, no hepatosplenomegaly Musculoskeletal: no cyanosis or clubbing, active range of motion of bilateral upper extremities, he is able to lift both legs off the bed without difficulty Skin: no rashes, warm and dry normal turgor Neurologic: PERRL, EOMI, accommodation nl, no face palsy, no dysarthria CN's II-XI intact bilaterally and moves all extremities Psychiatric: A+Ox3, euthymic affect Lymphatic: no cervical or axillary lymphadenopathy : deferred Results & Data Results & Data Vital Signs (Past 12 Hours) Vital Signs Temp Pulse Pulse Resp BP BP Pulse Ox 01/21/23 16:10 58 L 01/21/23 14:49 56 L 19 94 01/21/23 14:11 36.7 C 56 L 19 125/55 L 92 01/21/23 14:11 36.7 C 56 L 19 125/55 L 92 O2 Del Method 01/21/23 16:10 01/21/23 14:49 Room Air 01/21/23 14:11 Room Air 01/21/23 14:11 Room Air Diagnostic Findings Chest X-Ray 01/21/23 14:49 XR chest 1V portable CLINICAL HISTORY: weakness TECHNIQUE: Single frontal radiograph of the chest was obtained. Comparison: Comparison is made to chest radiograph 06/23/2021 FINDINGS: Median sternotomy wires are unchanged. Cardiomegaly is noted. The aortic arch is calcified. Reticular interstitial opacities are seen. No evidence of pleural effusion or pneumothorax. IMPRESSION: No acute chest disease. ACT 112: Negative or not required by law. Electronically signed by: Tavo Hayden M.D. 01/21/2023 3:[address] 01/21/23 15:13 CT head/brain wo con CLINICAL HISTORY: confused, weak Technique: Contiguous axial CT images of the head were acquired from the base of the skull to the vertex without intravenous contrast administration. Images were viewed in brain, subdural and bone windows. Automated dose lowering techniques and/or adjustment according to patient size were utilized for this exam. Comparison: Comparison is made to CT head 01/02/2023 Findings: Areas of decreased attenuation are present in the periventricular and subcortic al white matter bilaterally consistent with small vessel ischemic disease. Generalized cerebral atrophy with commensurate enlargement of the ventricles, sulci, and cisterns is also present. There is no acute intracranial hemorrhage or evidence of acute territorial infarction. No shift of the midline structures, mass effect, or extra-axial abnormalities are shown. Atherosclerotic calcifications are present in the intracranial segments of the internal carotid arteries. 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 Imaged portions of the paranasal sinuses and mastoid air cells are clear. The orbits appear normal. There are no acute fractures of the calvaria or scalp swelling. Impression: No acute intracranial hemorrhage, no evidence of acute territorial infarction or other acute intracranial disease process. ACT 112: Negative or not required by law. Electronically signed by: Tavo Hayden M.D. 01/21/2023 4:[address] 01/21/23 15:[address] DOSE: 1172.28 mGy.cm HISTORY: fall, low back pain TECHNIQUE: Multiaxial CT images of the lumbar spine were performed and reformatted in the sagittal and coronal plane without the use of contrast. A dose lowering technique was utilized adhering to the principles of ALARA. COMPARISON: Abdomen and pelvis CT 01/02/2023. Lumbar spine CT 12/06/2015. FINDINGS: Mild levoscoliosis of the lumbar spine. Nondisplaced fracture within the right L1 transverse process. This appears to be subacute. There is an acute nondisplaced fracture through the superior endplate of T12 which likely involves the T11-T12 disc space. The posterior elements appear intact. No acute fractures within the lumbar spine. Mild to moderate degenerative disc disease and facet osteoarthritis within the lumbar spine. There is a left L5 pars defect noted. IMPRESSION: 1. Acute nondisplaced fracture through the superior endplate of T12 which likely involves the T11-T12 disc space. The posterior elements appear intact. 2. Nondisplaced right L1 transverse process fracture. This appears to be subacute. ACT 112: Negative or not required by law. Electronically signed by: Norberto Chan M.D. 01/21/2023 4:34 PM Medications Administered Medication List Discontinued Medications Sodium Chloride (Nss) 500 mls @ 999 mls/hr IV .Q31M LYNDA Stop: 01/21/23 15:30 Last Infusion: 01/21/23 18:08 Dose: 0 mls/hr Documented By: AREA RELIEF PILOT Admin: 01/21/23 15:48 Dose: 999 mls/hr Documented By: AREA RELIEF PILOT Sodium Chloride (Nss 1000ml) 500 mls @ 999 mls/hr IV .Q31M ONE Stop: 01/21/23 16:25 Last Infusion: 01/21/23 18:08 Dose: 0 mls/hr Documented By: AREA RELIEF PILOT Admin: 01/21/23 16:54 Dose: 999 mls/hr Documented By: WCS ECG Rate (beats per minute): 56 Rhythm: sinus bradycardia Findings: + LBBB Additional Comments: LBBB is new COVID-19 Results Results COVID-19 Adm Lab Results: RBC 3.73 M/uL (4.70-6.10) L 01/22/23 WBC 7.08 K/ul (4.8-10.8) 01/22/23 Hgb 11.0 g/dl (14.0-18.0) L 01/22/23 Hct 34.3 % (42.0-52.0) L 01/22/23 Plt Count 187 K/uL (130-400) 01/22/23 Neutrophils (%) (Auto) 66.0 % 01/22/23 Lymphocytes (%) (Auto) 14.1 % 01/22/23 Monocytes # (Auto) 0.97 K/uL (0.11-0.59) H 01/22/23 Eosinophils # (Auto) 0.37 K/uL (0-0.50) 01/22/23 Immature Granulocyte % (Auto) 0.3 % 01/22/23 Neutrophils # (Auto) 4.67 K/uL (1.40-6.50) 01/22/23 Lymphocytes # (Auto) 1.00 K/uL (1.2-3.4) L 01/22/23 Monocytes # (Auto) 0.97 K/uL (0.11-0.59) H 01/22/23 Eosinophils # (Auto) 0.37 K/uL (0-0.50) 01/22/23 Basophils # (Auto) 0.05 K/uL (0-0.2) 01/22/23 Immature Granulocyte # (Auto) 0.02 K/uL (0.01-0.20) 3 Na 138 mmol/L (136-145) 01/22/23 K 4.2 mmol/L (3.5-5.1) 01/22/23 Cl 106 mmol/L (98-107) 01/22/23 CO2 27 mmol/L (21-32) 01/22/23 Anion Gap 5 (3-11) 01/22/23 BUN 23 mg/dl (6-23) 01/22/23 Creatinine 1.32 mg/dl (0.6-1.4) 01/22/23 BUN/Creatinine Ratio 17.4 (10-20) 01/22/23 Glucose Level 120 mg/dl (70-99(Fasting)) H 01/22/23 Ca 8.4 mg/dl (8.6-10.3) L 01/22/23 Total Bilirubin 0.6 mg/dl (0.2-1.0) 01/22/23 AST/SGOT 14 U/L (13-39) 01/22/23 ALT/SGPT 10 U/L (7-52) 01/22/23 Alkaline Phosphatase 75 U/L (34-104) 01/22/23 Total Protein 6.3 gm/dl (6.0-8.3) 01/22/23 Albumin 3.6 gm/dl (3.4-5.0) 01/22/23 Globulin 2.7 gm/dl (2.5-4.0) 01/22/23 Albumin/Globulin Ratio 1.3 (0.9-2) 01/22/23 PTT 36.1 Seconds (21.0-31.0) H 01/21/23 INR 3.7 (0.9-1.1) H 01/22/23 SARS-CoV-2, RNA, NAAT NEGATIVE (NEGATIVE) 01/21/23 Chest X-Ray 01/21/23 Code Status & VTE Plan VTE Prophylaxis Plan VTE Prophylaxis will be ordered: Yes Supervising Physician Co-Signing Physician Notes Pt seen and examined by myself, Zaria Roberto MD on the day of service. Care was coordinated with Yahaira Quinones PA-C. Please refer to her note for additional information. 77yoM with dementia, vertebral fracture and ambulatory dysfunction. at bedside, very supportive. Ortho/spine consult, pain control, PT/OT Will likely need placement for ambulatory dysfunction. Otherwise as above. (9) Diabetes mellitus, type II Diabetes mellitus complication status: without complication Diabetes mellitus detention insulin use: unspecified superintendent terminal insulin use status Qualified Code(s): E11.9 - Type 2 diabetes mellitus without complications
[2023-01-21] MEDS ORDERED: POLYETHYLENE (MIRALAX) 17 GM PACK PO PRN (20:35)
[2023-01-21] MEDS ORDERED: FAMOTIDINE 20 MG TAB PO PRN (20:35)
[2023-01-21] MEDS ORDERED: MAGNESIUM HYDROXIDE SUSP 30 ML UDC PO PRN (20:35)
[2023-01-21] MEDS ORDERED: GLUCOSE 10 TAB/TUBE PO PRN (20:35)
[2023-01-21] MEDS ORDERED: ONDANSETRON INJ 2 MG/ML 2 ML VIAL IV PRN (20:35)
[2023-01-21] MEDS ORDERED: GLUCOSE 40% GEL 15 GM TUBE PO PRN (20:35)
[2023-01-21] MEDS ORDERED: DEXTROSE 50% 50 ML SYRINGE IV PRN (20:35)
[2023-01-21] MEDS ORDERED: ALUMINUM/MAGNESIUM SUSP 30 ML UDC PO PRN (20:35)
[2023-01-21] MEDS ORDERED: CARBOHYDRATES FOR HYPOGLYCEMIA PO PRN (20:35)
[2023-01-21] MEDS ORDERED: traZODone HCL 100 MG TAB PO PRN (20:35)
[2023-01-21] MEDS ORDERED: ALBUTEROL 0.083% NEBU SOLN 3 ML VIAL NEB PRN (20:35)
[2023-01-21] MEDS ORDERED: GLUCAGON FOR INJ 1 MG VIAL SQ PRN (20:35)
[2023-01-21] MEDS ORDERED: ACETAMINOPHEN 325 MG TAB PO PRN (20:35)
[2023-01-21] MEDS ORDERED: ALBUT/IPRATROP 3MG/0.5MG NEB 3 ML VIAL INH SCH (21:00)
[2023-01-21] MEDS: INSULIN ASPART PER UNIT CHARGE SC SCH (21:28)
[2023-01-21] MEDS: INSULIN HUMAN NPH SC SCH (21:29)
[2023-01-21] MEDS: ATORVASTATIN 40 MG TAB PO SCH (21:30)
[2023-01-21] MEDS: ISOSORBIDE MONO EXTENDED REL 60 MG TABCR PO SCH (21:30)
[2023-01-21] MEDS: DOCUSATE SODIUM 100 MG CAP PO SCH (21:30)
[2023-01-21] MEDS: ACETAMINOPHEN 500 MG TAB PO SCH (21:30)
[2023-01-21] MEDS: METOPROLOL TARTRATE 100 MG TAB PO SCH (21:31)
[2023-01-21] MEDS: MEMANTINE HCL 5 MG TAB PO SCH (21:31)
[2023-01-21] MEDS: MAGNESIUM OXIDE 400 MG TAB PO SCH (21:31)
[2023-01-21] MEDS: NORTRIPTYLINE HCL 25 MG CAP PO SCH (21:31)
[2023-01-21] MEDS: RANOLAZINE 500 MG ER TAB PO SCH (21:31)
[2023-01-21] MEDS: WARFARIN SOD 2.5 MG TAB PO SCH (21:31)
[2023-01-21 22:10] LABS: INR 3.6 (0.9-1.1); Prothrombin Time 36.2 Seconds (9.0-12.0)
[2023-01-22 03:09] LABS: Albumin Globulin Ratio 1.3 (0.9-2); Albumin Level 3.6 gm/dl (3.4-5.0); BUN Creatinine Ratio 17.4 (10-20); Bilirubin,Total 0.6 mg/dl (0.2-1.0); Calcium 8.4 mg/dl (8.6-10.3); Creatinine Clr Calc Pharmacy 48.9 ml/min; Est GFR (African American) 59.5 ml/min; Est GFR (Non-African American) 51.3 ml/min; Globulin 2.7 gm/dl (2.5-4.0); Potassium 4.2 mmol/L (3.5-5.1); Total Protein 6.3 gm/dl (6.0-8.3)
[2023-01-22 03:19] LABS: Basophils # (auto) 0.05 K/uL (0-0.2); Basophils % (auto) 0.7 %; Eosinophils # (auto) 0.37 K/uL (0-0.50); Eosinophils % (auto) 5.2 %; Hematocrit (blood only) 34.3 % (42.0-52.0); Immature Granulocytes # (auto) 0.02 K/uL (0.01-0.20); Immature Granulocytes % (auto) 0.3 %; Lymphocytes % (auto) 14.1 %; Mean Corpuscular Hemoglobin 29.5 pg (25.0-34.0); Mean Corpuscular Hgb Conc 32.1 g/dL (32.0-36.0); Mean Platelet Volume 10.6 fL (9.4-12.4); Monocytes # (auto) 0.97 K/uL (0.11-0.59); Monocytes % (auto) 13.7 %; Neutrophils # (auto) 4.67 K/uL (1.40-6.50); Platelet Count 187 K/uL (130-400); RDW Coefficient of Variation 15.8 % (11.5-14.5); RDW Standard Deviation 53.1 fL (36.4-46.3); Red Blood Count 3.73 M/uL (4.70-6.10); White Blood Count 7.08 K/ul (4.8-10.8)
[2023-01-22 03:30] LABS: INR 3.7 (0.9-1.1); Prothrombin Time 37.4 Seconds (9.0-12.0)
[2023-01-22] MEDS: ALBUT/IPRATROP 3MG/0.5MG NEB 3 ML VIAL INH SCH ×3 (07:25→19:10)
[2023-01-22 07:46] LABS: Estimated Average Glucose 143 mg/dl; Hemoglobin A1C 6.6 % (4.5-5.6)
[2023-01-22] MEDS: INSULIN ASPART PER UNIT CHARGE SC SCH ×4 (08:22→21:08)
[2023-01-22] MEDS: INSULIN HUMAN NPH SC SCH ×2 (08:23→21:07)
[2023-01-22] MEDS: CLOPIDOGREL BISULFATE 75 MG TAB PO SCH (08:24)
[2023-01-22] MEDS: PANTOprazole 40 MG TAB PO SCH (08:24)
[2023-01-22] MEDS: UMECLIDINIUM BROMIDE 62.5MCG/BLISTER 7 PUFFS/INHALER INH SCH (08:24)
[2023-01-22] MEDS: DOCUSATE SODIUM 100 MG CAP PO SCH ×2 (08:25→21:44)
[2023-01-22] MEDS: MEMANTINE HCL 5 MG TAB PO SCH ×2 (08:25→21:06)
[2023-01-22] MEDS: METOPROLOL TARTRATE 100 MG TAB PO SCH ×2 (08:26→21:06)
[2023-01-22] MEDS: ACETAMINOPHEN 500 MG TAB PO SCH ×2 (08:26→21:06)
[2023-01-22] MEDS: LIDOCAINE 5% 1 PATCH TD SCH (08:26)
[2023-01-22] MEDS: RANOLAZINE 500 MG ER TAB PO SCH ×2 (08:26→21:07)
--- NOTE | 2023-01-22 08:31 | Electrocardiogram Report ---
Test Reason : Blood Pressure : / mmHG Vent. Rate : 059 BPM Atrial Rate : 059 BPM P-R Int : 266 ms QRS Dur : 134 ms QT Int : 478 ms P-R-T Axes : 059 -64 131 degrees QTc Int : 473 ms Sinus bradycardia with 1st degree A-V block Left axis deviation Left ventricular hypertrophy with QRS widening and repolarization abnormality Abnormal ECG When compared with ECG of 21-JAN-2023 15:19, No significant change was found Confirmed by Tevin Miles ([id number]) on 01/22/2023 8:31:02 AM Referred By: REFERRED SELF Confirmed By:Tevin Miles
--- NOTE | 2023-01-22 09:57 | Orthopedic Consultation ---
Date of Consultation January 22, 2023 Assessment & Plan (1) Closed T12 fracture: Dr. Cruz and I have reviewed the films together. The fracture pattern appears to be stable. There is no involvement of the posterior elements at this point would recommend ongoing pain control ambulation with physical therapy the patient does realize that he is going to have weakness in his legs based on neurogenic and vascular claudication. He does not want any type of invasive procedure performed. He may follow-up with his primary care physician as an outpatient. (2) Closed fracture of transverse process of lumbar vertebra: History of Present Illness Attending Physician: Veena Duffy MD History of Present Illness Patient is a pleasant 77-year-old male who presented to the emergency room yesterday secondary to low back pain and ambulatory dysfunction. He had taken a fall approximately 3 weeks ago. He has been having issues with his back since 1997. He has never had any spine surgery. He has chronic pain in his left leg from a vein harvest for his bypass surgery he also has known arterial disease with claudicant symptoms. Today he states his pain is relatively well controll ed. Were consulted to comment on his T12 endplate fracture and the right L1 transverse process fracture. He denies any other numbness, tingling, or paresthesias. Allergies Allergy/AdvReac Type Severity Reaction Status Date / Time fentanyl AdvReac Intermediate vomiting Verified 01/21/23 17:11 oxycodone AdvReac Intermediate vomiting Verified 01/21/23 17:11 propoxyphene AdvReac Intermediate Nausea - Verified 01/21/23 17:11 Darvocet Home Medications Medication Instructions Recorded Confirmed Type atorvastatin 80 mg tablet 80 mg PO HS 03/01/19 01/21/23 History clopidogrel 75 mg tablet 75 mg PO QAM 03/01/19 01/21/23 History insulin NPH isoph U-100 human 100 25 unit subcut HS 03/01/19 01/21/23 History unit/mL subcutaneous suspension (Novolin N NPH U-100 Insulin isophane) insulin NPH isoph U-100 human 100 36 unit subcut QDL 03/01/19 01/21/23 History unit/mL subcutaneous suspension (Novolin N NPH U-100 Insulin isophane) insulin regular human 100 unit/mL 15 unit subcut TIDM 03/01/19 01/21/23 History injection solution (Novolin R Regular U-100 Insulin) isosorbide mononitrate 60 mg 60 mg PO BID 03/01/19 01/21/23 History tablet,extended release 24 hr magnesium oxide 400 mg PO HS 03/01/19 01/21/23 History metoprolol tartrate 100 mg tablet 100 mg PO BID 03/01/19 01/21/23 History nitroglycerin 0.4 mg sublingual 0.4 mg sublingual UD PRN Chest Pain 03/01/19 01/21/23 History tablet (Nitrostat) nortriptyline 75 mg capsule 75 mg PO HS 03/01/19 01/21/23 History pantoprazole 40 mg tablet,delayed 40 mg PO QAM 03/01/19 01/21/23 History release trazodone 100 mg tablet 100 mg PO HS PRN Sleep 06/23/21 01/21/23 History furosemide 20 mg tablet 20 mg PO QAM 10/21/21 01/21/23 History acetaminophen 500 mg tablet 1,000 mg PO BID 01/21/23 01/21/23 History (Tylenol Extra Strength) albuterol sulfate 2.5 mg/3 mL 2.5 mg inhalation DIRECTED PRN 01/21/23 01/21/23 History (0.083 %) solution for nebulization Shortness Of Breath albuterol sulfate 5 mg/mL(0.5 %) 2.5 mg inhalation DIRECTED PRN 01/21/23 01/21/23 History solution for nebulization Shortness Of Breath docusate sodium 100 mg capsule 100 mg PO BID 01/21/23 01/21/23 History (Colace) famotidine 20 mg tablet 20 mg PO BID PRN Heartburn 01/21/23 01/21/23 History ipratropium 0.5 mg-albuterol 3 mg 3 ml inhalation TID 01/21/23 01/21/23 History (2.5 mg base)/3 mL nebulization soln memantine 5 mg tablet 5 mg PO BID 01/21/23 01/21/23 History ondansetron HCl 4 mg tablet 4 mg PO Q6H PRN NAUSEA/VOMITING 01/21/23 01/21/23 History ranolazine 500 mg tablet,extended 500 mg PO Q12H 01/21/23 01/21/23 History release,12 hr umeclidinium 62.5 mcg/actuation 1 inh inhalation DAILY 01/21/23 01/21/23 History blister powder for inhalation (Incruse Ellipta) warfarin 5 mg tablet 2.5 mg PO SUMOTUWETHSA@1600 01/21/23 01/21/23 History warfarin 5 mg tablet 5 mg PO FR@1600 01/21/23 01/21/23 History Patient History Medical History AAA (abdominal aortic aneurysm) Angina pectoris CAD (coronary artery disease) s/p angioplasty RCA in 1988, s/p CABG x 3 in 1997; NSTEMI demand ischemia after spinal surgery in 2012; S/P DWAYNE and angioplasty left circumflex in 2016 Chronic back pain COPD (chronic obstructive pulmonary disease) Diabetes Diabetes mellitus, type II GERD (gastroesophageal reflux disease) HLD (hyperlipidemia) HTN (hypertension) 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 He is able to roll side to side without difficulties. His lower extreme motor exam reveals no focal atrophy his strength is 5 out of 5 to detailed muscle testing without exception. Sensations intact to light touch she is hyperesthetic in the left lower extremity along the medial side from the knee to the ankle. His skin is clean dry and intact. He is nontender palpation along lower portion of his lumbar spine. He has full range of motion of the hips and knees. Cardiovascular exam reveals no gross abnormalities. Visual montemayor are intact. Breathing is even and unlabored. Results & Data Vital Signs (Past 12 Hours) Vital Signs Temp Pulse Pulse Resp BP Pulse Ox O2 Del Method 01/22/23 08:05 36.4 C L 58 L 16 105/58 L 100 Nebulizer 01/22/23 07:40 60 01/22/23 07:38 60 16 98 Nasal Cannula 01/22/23 07:37 60 01/22/23 04:04 36.7 C 59 L 18 119/64 96 Nasal Cannula 01/21/23 22:36 62 01/21/23 23:30 36.4 C L 64 18 116/73 97 Room Air 01/21/23 22:00 36.4 C L 62 18 160/70 H 94 Room Air O2 Flow Rate 01/22/23 08:05 01/22/23 07:40 01/22/23 07:38 3 01/22/23 07:37 01/22/23 04:04 2 01/21/23 22:36 01/21/23 23:30 01/21/23 22:[address] scan of the thoracic and lumbar spine reviewed. This reveals a fracture of the superior portion of the endplate of T12 extending to the disc space. The posterior elements are intact at this level. There is also a nondisplaced right L1 transverse process fracture. (1) Closed T12 fracture Encounter type: initial encounter Fracture morphology: unspecified fracture morphology Qualified Code(s): S22.089A - Unspecified fracture of T11-T12 vertebra, initial encounter for closed fracture (2) Closed fracture of transverse process of lumbar vertebra Encounter type: initial encounter Qualified Code(s): S32.009A - Unspecified fracture of unspecified lumbar vertebra, initial encounter for closed fracture
[2023-01-22] MEDS: FUROSEMIDE 20 MG TAB PO SCH (10:57)
[2023-01-22] MEDS: ISOSORBIDE MONO EXTENDED REL 60 MG TABCR PO SCH ×2 (10:58→21:06)
--- NOTE | 2023-01-22 13:00 | Hospitalist Progress Note ---
Date of Service January 22, 2023 Assessment & Plan (1) Bilateral leg weakness: (2) Ambulatory dysfunction: (3) Vertebral compression fracture: (4) New onset left bundle branch block (LBBB): (5) CAD (coronary artery disease): (6) Atrial flutter: (7) CHF (congestive heart failure): (8) COPD (chronic obstructive pulmonary disease): (9) Diabetes mellitus, type II: Plan This is a 77-year-old male with complex medical issues including chronic hypoxic respiratory failure, COPD, VENICE on CPAP, CAD with history of CABG x3, insulin- dependent T2DM, ectatic abdominal aorta, PAD, diastolic CHF, atrial flutter, CKD stage III, bilateral carotid artery stenosis, long-term anticoagulation, HTN, GERD, dementia, history of TIA, chronic back pain, lumbar disc disorder with myelopathy and gait disturbance who presents to ED due to bilateral leg weakness and inability to walk. Bilateral leg weakness Ambulatory dysfunction Compression fracture CT lumbar spine revealed acute nondisplaced fracture through superior endplate of T12 which likely involves the T11-T12 disc space, also noted is a nondisplaced right L1 transverse process fracture Likely related to patient's fall approximately 3 weeks ago Orthospine evaluated, recommends PT OT and rehab. Pain management. Continue with PT and OT, likely will need rehab. Pain management, lidocaine patch, heat Patient reports pain under control. New left bundle branch block CAD with history of CABG Atrial flutter on long-term anticoagulation Chronic HFpEF HTN HLD Patient without cardiac complaint, troponin trend normal Patient currently on atorvastatin, Plavix, Lasix, Imdur, metoprolol tartrate and Ranexa Echo reviewed, normal RV and LV function. Warfarin: Home regimen of 5 mg on Wednesday and 2.5 mg all other days, will continue We will hold warfarin today, INR 3.7 today. Follow-up INR tomorrow. Chronic hypoxic respiratory failure COPD VENICE on CPAP Continue nebulizer, Incruse Encourage incentive spirometer No acute exacerbation Uses 3 L oxygen during sleep at baseline. Insulin-dependent T2DM NPH/NovoLog per protocol A1c of 6.6 this admission Lumbar spinal stenosis Chronic back pain As above CKD stage III Creatinine baseline, avoid nephrotoxic agent Dementia without mood disturbance Continue namenda DVT ppx: warfarin Dispo: med/tele PCP:Felicia Conditional code: no me[facility] ventilation Admission and Anticipated Discharge Date Admission Date: January 21, 2023 Subjective Patient seen and examined at bedside for follow-up of BLE weakness, compression fracture vertebrae. Patient was lying in bed, on 2 L nasal cannula oxygen, NAD, patient reports low back pain with walking and weakness with walking, denies headache or dizziness or chest pain, reports eating okay and moving bowels okay, has no problem with bowel and bladder movement controlled. Does not have any radicular pain down his legs. Physical Exam Physical Exam: GENERAL: Alert and oriented x3. NAD, on 3L NC O2. appears weak/frail. HEENT: No pallor, no icterus. Pupils equal, round and reactive to light. Oral mucosa moist. NECK: No JVD, no neck masses. HEART: S1 and S2 heard. Regular rate and rhythm. No murmur, no gallop. RESPIRATORY SYSTEM: Normal AP diameter. No accessory muscle use. No wheezing, no crackles. ABDOMEN: Soft, bowel sounds present, nontender, no distention. CENTRAL NERVOUS SYSTEM: No facial droop. Speech is clear. Obeys simple commands. Moves extremities. EXTREMITIES: No edema, no erythema seen. Results & Data Results & Data Vital Signs (Past 12 Hours) Vital Signs Temp Pulse Pulse Resp BP Pulse Ox O2 Del Method 01/22/23 11:50 36.7 C 58 L 16 105/63 96 Nasal Cannula 01/22/23 10:00 36.4 C L 62 16 101/63 95 Nasal Cannula 01/22/23 08:05 36.4 C L 58 L 16 105/58 L 100 Nebulizer 01/22/23 07:40 60 01/22/23 07:38 60 16 98 Nasal Cannula 01/22/23 07:37 60 01/22/23 04:04 36.7 C 59 L 18 119/64 96 Nasal Cannula O2 Flow Rate 01/22/23 11:50 3 01/22/23 10:00 2 01/22/23 08:05 01/22/23 07:40 01/22/23 07:38 3 01/22/23 07:37 01/22/23 04:04 2 (9) Diabetes mellitus, type II Diabetes mellitus complication status: without complication Diabetes mellitus 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
[2023-01-22] MEDS ORDERED: WARFARIN SOD 5 MG TAB PO SCH (16:00)
[2023-01-22] MEDS: ATORVASTATIN 40 MG TAB PO SCH (21:06)
[2023-01-22] MEDS: MAGNESIUM OXIDE 400 MG TAB PO SCH (21:06)
[2023-01-22] MEDS: NORTRIPTYLINE HCL 25 MG CAP PO SCH (21:07)
[2023-01-23 06:28] LABS: INR 3.3 (0.9-1.1); Prothrombin Time 33.9 Seconds (9.0-12.0)
[2023-01-23] MEDS: ALBUT/IPRATROP 3MG/0.5MG NEB 3 ML VIAL INH SCH ×3 (07:04→19:26)
[2023-01-23] MEDS: INSULIN ASPART PER UNIT CHARGE SC SCH ×4 (08:20→21:59)
[2023-01-23] MEDS: INSULIN HUMAN NPH SC SCH ×2 (08:21→22:03)
[2023-01-23] MEDS: UMECLIDINIUM BROMIDE 62.5MCG/BLISTER 7 PUFFS/INHALER INH SCH (09:01)
[2023-01-23] MEDS: ISOSORBIDE MONO EXTENDED REL 60 MG TABCR PO SCH ×2 (09:01→21:54)
[2023-01-23] MEDS: PANTOprazole 40 MG TAB PO SCH (09:02)
[2023-01-23] MEDS: FUROSEMIDE 20 MG TAB PO SCH (09:02)
[2023-01-23] MEDS: METOPROLOL TARTRATE 100 MG TAB PO SCH ×2 (09:02→21:53)
[2023-01-23] MEDS: RANOLAZINE 500 MG ER TAB PO SCH ×2 (09:02→21:52)
[2023-01-23] MEDS: CLOPIDOGREL BISULFATE 75 MG TAB PO SCH (09:02)
[2023-01-23] MEDS: MEMANTINE HCL 5 MG TAB PO SCH ×2 (09:03→21:53)
[2023-01-23] MEDS: ACETAMINOPHEN 500 MG TAB PO SCH ×2 (09:04→21:44)
[2023-01-23] MEDS: LIDOCAINE 5% 1 PATCH TD SCH ×2 (09:04→18:09)
[2023-01-23] MEDS: DOCUSATE SODIUM 100 MG CAP PO SCH ×2 (09:04→21:59)
[2023-01-23] MEDS ORDERED: ERGOCALCIFEROL 50,000 UNITS 1250 MCG CAP PO SCH (10:00)
--- NOTE | 2023-01-23 13:40 | Hospitalist Progress Note ---
Date of Service January 23, 2023 Assessment & Plan (1) Bilateral leg weakness: (2) Ambulatory dysfunction: (3) Vertebral compression fracture: (4) New onset left bundle branch block (LBBB): (5) CAD (coronary artery disease): (6) Atrial flutter: (7) CHF (congestive heart failure): (8) COPD (chronic obstructive pulmonary disease): (9) Diabetes mellitus, type II: Plan This is a 77-year-old male with complex medical issues including chronic hypoxic respiratory failure, COPD, VENICE on CPAP, CAD with history of CABG x3, insulin- dependent T2DM, ectatic abdominal aorta, PAD, diastolic CHF, atrial flutter, CKD stage III, bilateral carotid artery stenosis, long-term anticoagulation, HTN, GERD, dementia, history of TIA, chronic back pain, lumbar disc disorder with myelopathy and gait disturbance who presents to ED due to bilateral leg weakness and inability to walk. Bilateral leg weakness Ambulatory dysfunction Compression fracture CT lumbar spine revealed acute nondisplaced fracture through superior endplate of T12 which likely involves the T11-T12 disc space, also noted is a nondisplaced right L1 transverse process fracture Likely related to patient's fall approximately 3 weeks ago Orthospine evaluated, recommends PT OT and rehab. Pain management. Continue with PT and OT, likely will need rehab. Pain management, lidocaine patch, heat Patient reports pain under control. New left bundle branch block CAD with history of CABG Atrial flutter on long-term anticoagulation Chronic HFpEF HTN HLD Patient without cardiac complaint, troponin trend normal Patient currently on atorvastatin, Plavix, Lasix, Imdur, metoprolol tartrate and Ranexa Echo reviewed, normal RV and LV function. Warfarin: Home regimen of 5 mg on Wednesday and 2.5 mg all other days, will continue Follow-up INR tomorrow. Chronic hypoxic respiratory failure COPD VENICE on CPAP Continue nebulizer, Incruse Encourage incentive spirometer No acute exacerbation Uses 3 L oxygen during sleep at baseline. Insulin-dependent T2DM NPH/NovoLog per protocol A1c of 6.6 this admission Lumbar spinal stenosis Chronic back pain As above CKD stage III Creatinine baseline, avoid nephrotoxic agent Dementia without mood disturbance Continue namenda DVT ppx: warfarin Dispo: med/surg, awaiting placement. PCP:Felicia Conditional code: no [facility] ventilation Admission and Anticipated Discharge Date Admission Date: January 21, 2023 Subjective Patient seen and examined at bedside for follow-up of BLE weakness, compression fracture vertebrae. Patient was lying in bed, on RA, NAD, patient reports low back pain with walking (better today) and weakness with walking, denies headache or dizziness or chest pain, reports eating okay and moving bowels okay, has no problem with bowel and bladder movement controlled. Does not have any radicular pain down his legs. Physical Exam Physical Exam: GENERAL: Alert and oriented x3. NAD, on RA. appears weak/frail. HEENT: No pallor, no icterus. Pupils equal, round and reactive to light. Oral mucosa moist. NECK: No JVD, no neck masses. HEART: S1 and S2 heard. Regular rate and rhythm. No murmur, no gallop. RESPIRATORY SYSTEM: Normal AP diameter. No accessory muscle use. No wheezing, no crackles. ABDOMEN: Soft, bowel sounds present, nontender, no distention. CENTRAL NERVOUS SYSTEM: No facial droop. Speech is clear. Obeys simple commands. Moves extremities. EXTREMITIES: No edema, no erythema seen. 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
[2023-01-23] MEDS: WARFARIN SOD 2.5 MG TAB PO SCH (15:27)
[2023-01-23] MEDS ORDERED: Nursing to Pharmacy Communication SCH (18:15)
[2023-01-23] MEDS: MAGNESIUM OXIDE 400 MG TAB PO SCH (21:52)
[2023-01-23] MEDS: ATORVASTATIN 40 MG TAB PO SCH (21:53)
[2023-01-23] MEDS: NORTRIPTYLINE HCL 25 MG CAP PO SCH (21:53)
[2023-01-24] MEDS: ALBUT/IPRATROP 3MG/0.5MG NEB 3 ML VIAL INH SCH ×3 (07:15→19:21)
[2023-01-24 07:55] LABS: INR 1.9 (0.9-1.1); Prothrombin Time 19.6 Seconds (9.0-12.0)
[2023-01-24] MEDS: METOPROLOL TARTRATE 100 MG TAB PO SCH ×2 (08:05→20:15)
[2023-01-24] MEDS: ISOSORBIDE MONO EXTENDED REL 60 MG TABCR PO SCH ×2 (08:05→20:15)
[2023-01-24] MEDS: MEMANTINE HCL 5 MG TAB PO SCH ×2 (08:06→20:16)
[2023-01-24] MEDS: RANOLAZINE 500 MG ER TAB PO SCH ×2 (08:06→20:15)
[2023-01-24] MEDS: CLOPIDOGREL BISULFATE 75 MG TAB PO SCH (08:07)
[2023-01-24] MEDS: PANTOprazole 40 MG TAB PO SCH (08:07)
[2023-01-24] MEDS: FUROSEMIDE 20 MG TAB PO SCH (08:07)
[2023-01-24] MEDS: UMECLIDINIUM BROMIDE 62.5MCG/BLISTER 7 PUFFS/INHALER INH SCH (08:07)
[2023-01-24] MEDS: INSULIN HUMAN NPH SC SCH ×2 (08:08→20:37)
[2023-01-24] MEDS: INSULIN ASPART PER UNIT CHARGE SC SCH ×4 (08:09→20:36)
[2023-01-24] MEDS: ACETAMINOPHEN 500 MG TAB PO SCH ×2 (08:11→20:15)
[2023-01-24] MEDS: DOCUSATE SODIUM 100 MG CAP PO SCH ×2 (08:49→20:15)
--- NOTE | 2023-01-24 13:54 | Hospitalist Progress Note ---
Date of Service January 24, 2023 Assessment & Plan (1) Bilateral leg weakness: (2) Ambulatory dysfunction: (3) Vertebral compression fracture: (4) New onset left bundle branch block (LBBB): (5) CAD (coronary artery disease): (6) Atrial flutter: (7) CHF (congestive heart failure): (8) COPD (chronic obstructive pulmonary disease): (9) Diabetes mellitus, type II: Plan This is a 77-year-old male with complex medical issues including chronic hypoxic respiratory failure, COPD, VENICE on CPAP, CAD with history of CABG x3, insulin- dependent T2DM, ectatic abdominal aorta, PAD, diastolic CHF, atrial flutter, CKD stage III, bilateral carotid artery stenosis, long-term anticoagulation, HTN, GERD, dementia, history of TIA, chronic back pain, lumbar disc disorder with myelopathy and gait disturbance who presents to ED due to bilateral leg weakness and inability to walk. Bilateral leg weakness Ambulatory dysfunction Compression fracture CT lumbar spine revealed acute nondisplaced fracture through superior endplate of T12 which likely involves the T11-T12 disc space, also noted is a nondisplaced right L1 transverse process fracture Likely related to patient's fall approximately 3 weeks ago Orthospine evaluated, recommends PT OT and rehab. Pain management. Continue with PT and OT, likely will need rehab. Pain management, lidocaine patch, heat Patient reports pain under control. New left bundle branch block CAD with history of CABG Atrial flutter on long-term anticoagulation Chronic HFpEF HTN HLD Patient without cardiac complaint, troponin trend normal Patient currently on atorvastatin, Plavix, Lasix, Imdur, metoprolol tartrate and Ranexa Echo reviewed, normal RV and LV function. Warfarin: Home regimen of 5 mg on Wednesday and 2.5 mg all other days, will continue f/u inr daily or as needed. Chronic hypoxic respiratory failure COPD VENICE on CPAP Continue nebulizer, Incruse Encourage incentive spirometer No acute exacerbation Uses 3 L oxygen during sleep at baseline. Insulin-dependent T2DM NPH/NovoLog per protocol A1c of 6.6 this admission Lumbar spinal stenosis Chronic back pain As above CKD stage III Creatinine baseline, avoid nephrotoxic agent Dementia without mood disturbance Continue namenda DVT ppx: warfarin Dispo: med/surg, awaiting placement. medically stable. PCP:Felicia Conditional code: no [facility] ventilation Admission and Anticipated Discharge Date Admission Date: January 21, 2023 Subjective Patient seen and examined at bedside for follow-up of BLE weakness, compression fracture vertebrae. Patient was lying in bed, on RA, NAD, patient reports low back pain and weakness stable/better, reports filling chilly - increased room temp (it was cold in the room), denies headache or dizziness or chest pain, reports eating okay and moving bowels okay, has no problem with bowel and bladder movement control. Does not have any radicular pain down his legs. Physical Exam Physical Exam: GENERAL: Alert and oriented x3. NAD, on RA. appears weak/frail. HEENT: No pallor, no icterus. Pupils equal, round and reactive to light. Oral mucosa moist. NECK: No JVD, no neck masses. HEART: S1 and S2 heard. Regular rate and rhythm. No murmur, no gallop. RESPIRATORY SYSTEM: Normal AP diameter. No accessory muscle use. No wheezing, no crackles. ABDOMEN: Soft, bowel sounds present, nontender, no distention. CENTRAL NERVOUS SYSTEM: No facial droop. Speech is clear. Obeys simple commands. Moves extremities. EXTREMITIES: No edema, no erythema seen. Results & Data Results & Data Vital Signs (Past 12 Hours) Vital Signs Temp Pulse Pulse Pulse Resp BP Pulse Ox 01/24/23 12:36 70 16 94 01/24/23 11:56 36.8 C 70 18 109/61 91 01/24/23 08:00 01/24/23 08:10 36.2 C L 63 16 116/69 95 01/24/23 07:17 74 20 93 01/24/23 07:05 66 01/24/23 04:00 36.3 C L 71 18 120/75 97 O2 Del Method O2 Flow Rate 01/24/23 12:36 Room Air 01/24/23 11:56 Room Air 01/24/23 08:00 Room Air 01/24/23 08:10 CPAP 3 01/24/23 07:17 CPAP 01/24/23 07:05 01/24/23 04:00 Room Air, CPAP (9) Diabetes mellitus, type II Diabetes mellitus complication status: without complication Diabetes mellitus assisted insulin use: unspecified assisted insulin use status Qualified Code(s): E11.9 - Type 2 diabetes mellitus without complications
[2023-01-24] MEDS: LIDOCAINE 5% 1 PATCH TD SCH (17:38)
[2023-01-24] MEDS: WARFARIN SOD 2.5 MG TAB PO SCH (17:38)
[2023-01-24] MEDS: ATORVASTATIN 40 MG TAB PO SCH (20:15)
[2023-01-24] MEDS: MAGNESIUM OXIDE 400 MG TAB PO SCH (20:15)
[2023-01-24] MEDS: NORTRIPTYLINE HCL 25 MG CAP PO SCH (20:16)
[2023-01-25] MEDS: ALBUT/IPRATROP 3MG/0.5MG NEB 3 ML VIAL INH SCH ×3 (07:10→19:41)
[2023-01-25 08:00] LABS: Prothrombin Time 21.4 Seconds (9.0-12.0)
[2023-01-25] MEDS: METOPROLOL TARTRATE 100 MG TAB PO SCH ×2 (08:42→22:27)
[2023-01-25] MEDS: ACETAMINOPHEN 500 MG TAB PO SCH ×2 (08:42→22:26)
[2023-01-25] MEDS: MEMANTINE HCL 5 MG TAB PO SCH ×2 (08:42→22:28)
[2023-01-25] MEDS: UMECLIDINIUM BROMIDE 62.5MCG/BLISTER 7 PUFFS/INHALER INH SCH (08:42)
[2023-01-25] MEDS: DOCUSATE SODIUM 100 MG CAP PO SCH ×2 (08:42→22:39)
[2023-01-25] MEDS: ISOSORBIDE MONO EXTENDED REL 60 MG TABCR PO SCH ×2 (08:42→22:28)
[2023-01-25] MEDS: RANOLAZINE 500 MG ER TAB PO SCH ×2 (08:42→22:27)
[2023-01-25] MEDS: FUROSEMIDE 20 MG TAB PO SCH (08:43)
[2023-01-25] MEDS: PANTOprazole 40 MG TAB PO SCH (08:43)
[2023-01-25] MEDS: CLOPIDOGREL BISULFATE 75 MG TAB PO SCH (08:44)
[2023-01-25] MEDS: INSULIN HUMAN NPH SC SCH ×2 (08:45→22:40)
[2023-01-25] MEDS: INSULIN ASPART PER UNIT CHARGE SC SCH ×4 (08:45→22:39)
--- NOTE | 2023-01-25 16:25 | Hospitalist Progress Note ---
Date of Service January 25, 2023 Assessment & Plan (1) Bilateral leg weakness: (2) Ambulatory dysfunction: (3) Vertebral compression fracture: (4) New onset left bundle branch block (LBBB): (5) CAD (coronary artery disease): (6) Atrial flutter: (7) CHF (congestive heart failure): (8) COPD (chronic obstructive pulmonary disease): (9) Diabetes mellitus, type II: Plan This is a 77-year-old male with complex medical issues including chronic hypoxic respiratory failure, COPD, VENICE on CPAP, CAD with history of CABG x3, insulin- dependent T2DM, ectatic abdominal aorta, PAD, diastolic CHF, atrial flutter, CKD stage III, bilateral carotid artery stenosis, long-term anticoagulation, HTN, GERD, dementia, history of TIA, chronic back pain, lumbar disc disorder with myelopathy and gait disturbance who presents to ED due to bilateral leg weakness and inability to walk. Bilateral leg weakness Ambulatory dysfunction Compression fracture CT lumbar spine revealed acute nondisplaced fracture through superior endplate of T12 which likely involves the T11-T12 disc space, also noted is a nondisplaced right L1 transverse process fracture Likely related to patient's fall approximately 3 weeks ago Orthospine evaluated, recommends PT OT and rehab. Pain management. Continue with PT and OT, likely will need rehab. Pain management, lidocaine patch, heat Patient reports pain under control. New left bundle branch block CAD with history of CABG Atrial flutter on long-term anticoagulation Chronic HFpEF HTN HLD Patient without cardiac complaint, troponin trend normal Patient currently on atorvastatin, Plavix, Lasix, Imdur, metoprolol tartrate and Ranexa Echo reviewed, normal RV and LV function. Warfarin: Home regimen of 5 mg on Wednesday and 2.5 mg all other days, will continue f/u inr as needed. Chronic hypoxic respiratory failure COPD VENICE on CPAP Continue nebulizer, Incruse Encourage incentive spirometer No acute exacerbation Uses 3 L oxygen during sleep at baseline. Insulin-dependent T2DM NPH/NovoLog per protocol A1c of 6.6 this admission Lumbar spinal stenosis Chronic back pain As above CKD stage III Creatinine baseline, avoid nephrotoxic agent Dementia without mood disturbance Continue namenda DVT ppx: warfarin Dispo: med/surg, awaiting placement. medically stable. PCP:Felicia Conditional code: no [facility] ventilation Admission and Anticipated Discharge Date Admission Date: January 21, 2023 Subjective Patient seen and examined at bedside for follow-up of BLE weakness, compression fracture vertebrae. Patient was lying in bed, on RA, NAD, patient reports low back pain and weakness stable/better, denies headache or dizziness or chest pain, reports eating okay and moving bowels okay, has no problem with bowel and bladder movement control. Does not have any radicular pain down his legs. Physical Exam Physical Exam: GENERAL: Alert and oriented x3. NAD, on RA. appears weak/frail. HEENT: No pallor, no icterus. Pupils equal, round and reactive to light. Oral mucosa moist. NECK: No JVD, no neck masses. HEART: S1 and S2 heard. Regular rate and rhythm. No murmur, no gallop. RESPIRATORY SYSTEM: Normal AP diameter. No accessory muscle use. No wheezing, no crackles. ABDOMEN: Soft, bowel sounds present, nontender, no distention. CENTRAL NERVOUS SYSTEM: No facial droop. Speech is clear. Obeys simple commands. Moves extremities. EXTREMITIES: No edema, no erythema seen. Results & Data Results & Data Vital Signs (Past 12 Hours) Vital Signs Temp Pulse Resp BP BP Pulse Ox O2 Del Method 01/25/23 14:52 36.6 C 60 18 131/77 93 Room Air 01/25/23 13:08 63 18 90 Room Air 01/25/23 07:07 36.5 C 65 18 127/68 93 BiPAP 01/25/23 07:11 63 18 95 Room Air (9) Diabetes mellitus, type II Diabetes mellitus complication status: without complication Diabetes mellitus skilled nursing insulin use: unspecified skilled nursing insulin use status Qualified Code(s): E11.9 - Type 2 diabetes mellitus without complications
[2023-01-25] MEDS: LIDOCAINE 5% 1 PATCH TD SCH (17:08)
[2023-01-25] MEDS: WARFARIN SOD 2.5 MG TAB PO SCH (17:08)
[2023-01-25] MEDS: MAGNESIUM OXIDE 400 MG TAB PO SCH (22:27)
[2023-01-25] MEDS: ATORVASTATIN 40 MG TAB PO SCH (22:28)
[2023-01-25] MEDS: NORTRIPTYLINE HCL 25 MG CAP PO SCH (22:58)
--- NOTE | 2023-01-26 01:24 | Communication Note ---
Date of Service: January 26, 2023 Patient fell on the floor attempting to go to the bathroom. Subsequent head trauma. Patient complaining of headache. AP Head trauma secondary to fall CT head CT cervical spine Hold antiplatelet and anticoagulant Rx until CT results back.
[2023-01-26] MEDS ORDERED: ACETAMINOPHEN 500 MG TAB PO STA (01:48)
--- NOTE | 2023-01-26 01:59 | CT Scan Report ---
Exam(s): CT HEAD Without Contrast EXAM: CT Head Without Intravenous Contrast CLINICAL HISTORY: Reason for exam: head trauma. TECHNIQUE: Axial computed tomography images of the head/brain without intravenous contrast. CTDI is 37.42 mGy and DLP is 702.46 mGy-cm. Automated exposure control was utilized for the study. A dose lowering technique was utilized adhering to the principles of ALARA. COMPARISON: CT head 01/21/23 FINDINGS: Limitations: Motion artifact. Brain: Chronic lacunar infarcts involving the left basal ganglia. Royal-white matter differentiation appears grossly maintained. Generalized parenchymal volume loss. Chronic small vessel ischemic changes. No acute intracranial hemorrhage, mass-effect, or edema. Ventricles: Unremarkable. No hydrocephalus. Bones/joints: Unremarkable. No skull fracture. Soft tissues: Unremarkable. Vasculature: Intracranial atherosclerosis. Sinuses: Patchy mucosal thickening in the paranasal sinuses. No sinus fluid levels. Mastoid air cells: Unremarkable as visualized. No mastoid effusion. Orbits: Bilateral lens replacements. IMPRESSION: No acute intracranial process. Electronically signed by: Vanessa Washburn M.D. 01/26/23 01:58 AM
--- NOTE | 2023-01-26 02:00 | CT Scan Report ---
Exam(s): CT C SPINE EXAM: CT Cervical Spine Without Intravenous Contrast CLINICAL HISTORY: Reason for exam: fall. TECHNIQUE: Axial computed tomography images of the cervical spine without intravenous contrast. CTDI is 26.96 mGy and DLP is 522.73 mGy-cm. Automated exposure control was utilized for the study. A dose lowering technique was utilized adhering to the principles of ALARA. COMPARISON: 01/02/23 FINDINGS: Bones are osteopenic. Vertebral body height and alignment are maintained. There is no acute fracture or traumatic subluxation. Multilevel degenerative changes are stable from prior exam. Carotid calcifications are noted. There is no prevertebral soft tissue swelling. IMPRESSION: 1. No acute osseous findings. 2. Multilevel degenerative changes, stable from 01/02/23. Electronically signed by: Vanessa Washburn M.D. 01/26/23 01:59 AM
[2023-01-26] MEDS: ALBUT/IPRATROP 3MG/0.5MG NEB 3 ML VIAL INH SCH ×3 (07:14→20:04)
[2023-01-26] MEDS: INSULIN HUMAN NPH SC SCH ×2 (08:16→19:53)
[2023-01-26] MEDS: UMECLIDINIUM BROMIDE 62.5MCG/BLISTER 7 PUFFS/INHALER INH SCH (08:18)
[2023-01-26] MEDS: RANOLAZINE 500 MG ER TAB PO SCH ×2 (08:18→19:35)
[2023-01-26] MEDS: CLOPIDOGREL BISULFATE 75 MG TAB PO SCH (08:18)
[2023-01-26] MEDS: MEMANTINE HCL 5 MG TAB PO SCH ×2 (08:18→19:36)
[2023-01-26] MEDS: DOCUSATE SODIUM 100 MG CAP PO SCH ×2 (08:18→19:32)
[2023-01-26] MEDS: FUROSEMIDE 20 MG TAB PO SCH (08:18)
[2023-01-26] MEDS: ISOSORBIDE MONO EXTENDED REL 60 MG TABCR PO SCH ×2 (08:18→19:36)
[2023-01-26] MEDS: METOPROLOL TARTRATE 100 MG TAB PO SCH ×2 (08:18→19:36)
[2023-01-26] MEDS: PANTOprazole 40 MG TAB PO SCH (08:18)
[2023-01-26] MEDS: ACETAMINOPHEN 500 MG TAB PO SCH ×2 (08:27→19:37)
[2023-01-26] MEDS: INSULIN ASPART PER UNIT CHARGE SC SCH ×4 (08:27→19:54)
--- NOTE | 2023-01-26 15:04 | Hospitalist Progress Note ---
Date of Service January 26, 2023 Assessment & Plan (1) Bilateral leg weakness: (2) Ambulatory dysfunction: (3) Vertebral compression fracture: (4) New onset left bundle branch block (LBBB): (5) CAD (coronary artery disease): (6) Atrial flutter: (7) CHF (congestive heart failure): (8) COPD (chronic obstructive pulmonary disease): (9) Diabetes mellitus, type II: Plan This is a 77-year-old male with complex medical issues including chronic hypoxic respiratory failure, COPD, VENICE on CPAP, CAD with history of CABG x3, insulin- dependent T2DM, ectatic abdominal aorta, PAD, diastolic CHF, atrial flutter, CKD stage III, bilateral carotid artery stenosis, long-term anticoagulation, HTN, GERD, dementia, history of TIA, chronic back pain, lumbar disc disorder with myelopathy and gait disturbance who presents to ED due to bilateral leg weakness and inability to walk. Bilateral leg weakness Ambulatory dysfunction Compression fracture CT lumbar spine revealed acute nondisplaced fracture through superior endplate of T12 which likely involves the T11-T12 disc space, also noted is a nondisplaced right L1 transverse process fracture Likely related to patient's fall approximately 3 weeks ago Orthospine evaluated, recommends PT OT and rehab. Pain management. Continue with PT and OT, likely will need rehab. Pain management, lidocaine patch, heat Patient reports pain under control. New left bundle branch block CAD with history of CABG Atrial flutter on long-term anticoagulation Chronic HFpEF HTN HLD Patient without cardiac complaint, troponin trend normal Patient currently on atorvastatin, Plavix, Lasix, Imdur, metoprolol tartrate and Ranexa Echo reviewed, normal RV and LV function. Warfarin: Home regimen of 5 mg on Wednesday and 2.5 mg all other days, will continue f/u inr as needed. Chronic hypoxic respiratory failure COPD VENICE on CPAP Continue nebulizer, Incruse Encourage incentive spirometer No acute exacerbation Uses 3 L oxygen during sleep at baseline. Insulin-dependent T2DM NPH/NovoLog per protocol A1c of 6.6 this admission Lumbar spinal stenosis Chronic back pain As above CKD stage III Creatinine baseline, avoid nephrotoxic agent Dementia without mood disturbance Continue namenda DVT ppx: warfarin Dispo: med/surg, awaiting placement. medically stable. PCP:Felicia Conditional code: no [facility] ventilation Admission and Anticipated Discharge Date Admission Date: January 21, 2023 Subjective Patient seen and examined at bedside for follow-up of BLE weakness, compression fracture vertebrae. Patient was lying in bed, on RA, NAD, patient reports low back pain and weakness stable/better, denies headache or dizziness or chest pain, reports eating okay and moving bowels okay, has no problem with bowel and bladder movement control. Does not have any radicular pain down his legs. Overnight, patient woke up for passing urine and reports that he was confused and then slipped on his own urine and fell on his back. CT of the head and C- spine noted, no acute findings. Patient with no pain. Physical Exam Physical Exam: GENERAL: Alert and oriented x3. NAD, on RA. appears weak/frail. HEENT: No pallor, no icterus. Pupils equal, round and reactive to light. Oral mucosa moist. NECK: No JVD, no neck masses. HEART: S1 and S2 heard. Regular rate and rhythm. No murmur, no gallop. RESPIRATORY SYSTEM: Normal AP diameter. No accessory muscle use. No wheezing, no crackles. ABDOMEN: Soft, bowel sounds present, nontender, no distention. CENTRAL NERVOUS SYSTEM: No facial droop. Speech is clear. Obeys simple commands. Moves extremities. EXTREMITIES: No edema, no erythema seen. Results & Data Results & Data Vital Signs (Past 12 Hours) Vital Signs Temp Pulse Resp BP BP Pulse Ox O2 Del Method 01/26/23 13:20 76 18 92 Room Air 01/26/23 11:57 Room Air 01/26/23 11:32 36.8 C 74 18 114/65 95 Room Air 01/26/23 07:15 67 18 95 Room Air 01/26/23 07:10 35.8 C L 67 18 125/66 95 CPAP 01/26/23 04:00 36.5 C 76 20 157/76 H 97 Room Air (9) Diabetes mellitus, type II Diabetes mellitus complication status: without complication Diabetes mellitus fdc insulin use: unspecified intermediate card tender insulin use status Qualified Code(s): E11.9 - Type 2 diabetes mellitus without complications
[2023-01-26] MEDS: WARFARIN SOD 2.5 MG TAB PO SCH (15:53)
[2023-01-26] MEDS: LIDOCAINE 5% 1 PATCH TD SCH (17:58)
[2023-01-26] MEDS: ATORVASTATIN 40 MG TAB PO SCH (19:36)
[2023-01-26] MEDS: MAGNESIUM OXIDE 400 MG TAB PO SCH (19:36)
[2023-01-26] MEDS: NORTRIPTYLINE HCL 25 MG CAP PO SCH (19:38)
[2023-01-27] MEDS: ALBUT/IPRATROP 3MG/0.5MG NEB 3 ML VIAL INH SCH (07:02)
[2023-01-27] MEDS: METOPROLOL TARTRATE 100 MG TAB PO SCH (08:06)
[2023-01-27] MEDS: RANOLAZINE 500 MG ER TAB PO SCH (08:06)
[2023-01-27] MEDS: ISOSORBIDE MONO EXTENDED REL 60 MG TABCR PO SCH (08:06)
[2023-01-27] MEDS: MEMANTINE HCL 5 MG TAB PO SCH (08:06)
[2023-01-27] MEDS: FUROSEMIDE 20 MG TAB PO SCH (08:06)
[2023-01-27] MEDS: PANTOprazole 40 MG TAB PO SCH (08:06)
[2023-01-27] MEDS: CLOPIDOGREL BISULFATE 75 MG TAB PO SCH (08:06)
[2023-01-27] MEDS: UMECLIDINIUM BROMIDE 62.5MCG/BLISTER 7 PUFFS/INHALER INH SCH (08:07)
[2023-01-27] MEDS: INSULIN ASPART PER UNIT CHARGE SC SCH (08:13)
[2023-01-27] MEDS: ACETAMINOPHEN 500 MG TAB PO SCH (08:13)
[2023-01-27] MEDS: INSULIN HUMAN NPH SC SCH (08:14)
[2023-01-27] MEDS: DOCUSATE SODIUM 100 MG CAP PO SCH (08:14)
[2023-01-27 08:42] LABS: INR 2.6 (0.9-1.1)
--- NOTE | 2023-01-27 10:22 | Discharge Summary ---
Date of Service January 27, 2023 Admission HPI Per Admitting Provider This is a 77-year-old male with complex medical issues including chronic hypoxic respiratory failure, COPD, VENICE on CPAP, CAD with history of CABG x3, insulin- dependent T2DM, ectatic abdominal aorta, PAD, diastolic CHF, atrial flutter, CKD stage III, bilateral carotid artery stenosis, long-term anticoagulation, HTN, GERD, dementia, history of TIA, chronic back pain, lumbar disc disorder with myelopathy and gait disturbance who presents to ED due to bilateral leg weakness and inability to walk. Patient's is at bedside. She states he fell backward and onto his back approximately 2 to 3 weeks ago. He has chronic back pain at baseline and feels like this fall exacerbated it. Since then has been having increasing difficulty to move around and has been more sedentary. She does make him get up and ambulate with a walker to and from the bathroom approximately 3 times a day. Patient went into the kitchen and sat down today. She went and asked him if he was ready to go shopping when he was unable to get out of the chair. They contacted [employer] to help get him up and was eventually brought to ED. he denies any fever, chills, sweats, lightheadedness, dizziness, chest pain, worsening shortness of breath, nausea, vomiting, abdominal pain. He does complain of mild dysuria but denies any increased urgency or frequency with urination or hematuria. He moves his bowels every other day. His appetite is otherwise stable. No weight loss or lower extremity swelling. In ED patient remained hemodynamically stable. CBC and CMP was generally unremarkable except for mild elevation in WBC at 11 K. His urinalysis was negative for infection. Lumbar spine CT did reveal an acute nondisplaced fracture through the superior endplate of T12 which likely involves the T11-12 disc space. Also noted was an L1 transverse process fracture which appears to be subacute. Patient does state he does have a prior history of laminectomy back in 2012. Head CT negative for any acute abnormality. Admission Exam Per Admitting Provider Constitutional: Elderly male, lying in bed, hard of hearing,WD/WN, vitals as above, NAD, sitting up in bed, pleasant, conversing easily Head: Normocephalic, Atraumatic Eyes: PERRL, conjunctivae normal, anicteric sclerae ENMT: external ear and nose normal, oropharynx normal Neck: trachea midline, no thyromegaly normal visual inspection Respiratory: normal respiratory effort, decreased breath sounds at bases, lungs clear to auscultation, no wheeze, rales, rhonchi. Normal insp/exp effort, no accessory muscle use Cardiovascular: RRR, 2 out of 6 KRISTYN right sternal border, no edema Vessels: no JVD or carotid bruit Chest: normal inspection of chest Abdomen: normal bowel sounds, soft, nontender, no hepatosplenomegaly Musculoskeletal: no cyanosis or clubbing, active range of motion of bilateral upper extremities, he is able to lift both legs off the bed without difficulty Skin: no rashes, warm and dry normal turgor Neurologic: PERRL, EOMI, accommodation nl, no face palsy, no dysarthria CN's II-XI intact bilaterally and moves all extremities Psychiatric: A+Ox3, euthymic affect Lymphatic: no cervical or axillary lymphadenopathy : deferred Principal Diagnosis Ambulatory dysfunction Non displaced T12 fracture L1 transverse process fracture Fall Left bundle branch block Discharge Exam Constitutional + well hydrated; no acute distress Eyes PERRL, conjunctivae normal, anicteric sclerae ENMT external ear and nose normal, oropharynx normal Respiratory normal respiratory effort, lungs clear to auscultation Cardiovascular Rate/Rhythm: regular rate and regular rhythm S1 S2 Gastrointestinal (Abdomen) normal bowel sounds, soft, nontender, no hepatosplenomegaly Musculoskeletal No pedal edema Neurologic PERRL, EOMI, accommodation nl, no face palsy, no dysarthria Psychiatric A+Ox3, euthymic affect Discharge Data Allergies Allergy/AdvReac Type Severity Reaction Status Date / Time fentanyl AdvReac Intermediate vomiting Verified 01/21/23 17:11 oxycodone AdvReac Intermediate vomiting Verified 01/21/23 17:11 propoxyphene AdvReac Intermediate Nausea - Verified 01/21/23 17:11 Darvocet Consultations 01/21/23 18:33 ED Decision to Admit Stat 01/21/23 18:46 Consult Orthopedic Surgery Routine Ordered Studies 01/21/23 15:13 CT head/brain wo con Stat CT lumbar spine wo con Stat 01/26/23 01:19 CT cervical spine wo con Stat CT head/brain wo con Stat Hospital Course (1) Bilateral leg weakness: (2) Ambulatory dysfunction: (3) Vertebral compression fracture: (4) New onset left bundle branch block (LBBB): (5) CAD (coronary artery disease): (6) Atrial flutter: (7) CHF (congestive heart failure): (8) COPD (chronic obstructive pulmonary disease): (9) Diabetes mellitus, type II: Plan 77-year-old male with complex medical issues including chronic hypoxic respiratory failure, COPD, VENICE on CPAP, CAD with history of CABG x3, insulin- dependent T2DM, ectatic abdominal aorta, PAD, diastolic CHF, atrial flutter, CKD stage III, bilateral carotid artery stenosis, long-term anticoagulation, HTN, GERD, dementia, history of TIA, chronic back pain, lumbar disc disorder with myelopathy and gait disturbance who presents to ED due to bilateral leg weakness and inability to walk. Bilateral leg weakness Ambulatory dysfunction Compression fracture CT lumbar spine revealed acute nondisplaced fracture through superior endplate of T12 which likely involves the T11-T12 disc space, also noted is a nondisplaced right L1 transverse process fracture Likely related to patient's fall approximately 3 weeks ago Ortho spine Surgeon evaluated and recommends PT/OT/rehab. Patient reports pain is well controlled Left bundle branch block CAD with history of CABG Atrial flutter on long-term anticoagulation Chronic HFpEF HTN HLD Patient without cardiac complaint Troponin trend normal Patient currently on atorvastatin, Plavix, Lasix, Imdur, metoprolol tartrate and Ranexa Echo reviewed, normal RV and LV function, mild MR Warfarin: Home regimen of 5 mg on Wednesday and 2.5 mg all other days INR is 2.6 today. Continue home dose and rehab facility can monitor INR Chronic hypoxic respiratory failure COPD VENICE on CPAP Continue nebulizer, Incruse Encourage incentive spirometer No acute exacerbation Uses 3 L oxygen during sleep at baseline. Insulin-dependent T2DM NPH/NovoLog per protocol A1c of 6.6 this admission Considering report of hypoglycemia episode at home to DM educator, A1c and trend inpatient, home NPH was reduced to 30U AM and 20U HS from 36U AM and 25U HS that patient reported Regimen can be adjusted as needed based on glucose readings at rehab facility Lumbar spinal stenosis Chronic back pain As above CKD stage III Creatinine baseline Dementia without mood disturbance Continue namenda Total Time Total Time Spent Total Time Spent (In Minutes): 50 Total Time Includes: Examination of the Patient, Discharge Planning and Medication Reconciliation Discharge Plan Discharge Items Patient Disposition[facility] Reason For Visit: AMBULATORY DYSFUNCTION, COMPRESSION FRACTURE Discharge Diagnosis: Ambulatory dysfunction Non displaced T12 fracture L1 transverse process fracture Fall Left bundle branch block Condition on Discharge: Fair Activity: As commented below Activity Comment: Per physical therapist recommendations Non-emergency contact: Primary Care Provider Call non-emergency contact if: you have any medication questions Follow-up/Referrals: Zachariah Duarte, [Primary Care Provider] - Diet: Carb Consistent or DM2 and Heart Healthy Ambulatory Orders: Prothrombin Time INR (Timed) Timeframe: 2 Days Location: Determined by Patient Ordered By: Lo Flowers Attending Provider Instructions: Mr Oakley You were brought to the hospital due to worsening leg weakness and ambulatory dysfunction. You were evaluated and noted to have some spinal fracture. These were evaluated by Orthopedic surgeon and noted to be stable. [facility] Your insulin NPH was reduced from 36U in the morning to 30U and 25U at bedtime to 20U. They will continue to monitor your blood glucose at the facility before meals and at bedtime and may make adjustments as needed. You were started on Vitamin D weekly. Please continue your warfarin and the facility can continue to monitor your PT/INR It was a pleasure taking care of you. Pending Studies at Discharge: No Stand-Alone Forms: [facility] Skilled Items Patient informed of condition?: Yes DNR: No Discharge Level of Care: Skilled Communicable Disease: No Discharge Prognosis: Stable Lines: None Urinary Catheter: No Medications and DC Order Prescriptions: New lidocaine 5 % Adhesive Patch,Medicated 1 patch transdermal TODAY@1800 Qty: 30 0RF ergocalciferol (vitamin D2) 1,250 mcg (50,000 unit) Capsule 50,000 unit PO Q7D Qty: 7 0RF Rx Instructions: Next dose is 01/30/23 acetaminophen 325 mg Tablet 650 mg PO Q4H PRN (Reason: pain) Qty: 60 0RF Rx Instructions: Not to exceed 4000mg per day Continued nitroglycerin [Nitrostat] 0.4 mg Tablet, Sublingual 0.4 mg sublingual UD MDD 3 doses in 15 minutes PRN (Reason: Chest Pain) Rx Instructions: place 1 tab under tongue every 5 min as needed for pain. atorvastatin 80 mg Tablet 80 mg PO HS Qty: 30 0RF ipratropium-albuterol 0.5 mg-3 mg(2.5 mg base)/3 mL Solution For Nebulization 3 ml INHALATION TID Qty: 90 0RF metoprolol tartrate 100 mg Tablet 100 mg PO BID Qty: 60 0RF ondansetron HCl 4 mg Tablet 4 mg PO Q6H PRN (Reason: NAUSEA/VOMITING) Qty: 30 0RF clopidogrel 75 mg Tablet 75 mg PO QAM Qty: 30 0RF acetaminophen [Tylenol Extra Strength] 500 mg Tablet 1,000 mg PO BID Qty: 60 0RF isosorbide mononitrate 60 mg Tablet Extended Release 24 Hr 60 mg PO BID Qty: 60 0RF famotidine 20 mg Tablet 20 mg PO BID PRN (Reason: Heartburn) Qty: 60 0RF trazodone 100 mg tablet 100 mg PO HS PRN (Reason: Sleep) Qty: 30 0RF nortriptyline 75 mg Capsule 75 mg PO HS Qty: 30 0RF pantoprazole 40 mg Tablet,Delayed Release (Dr/Ec) 40 mg PO QAM Qty: 30 0RF Novolin R Regular U-100 Insuln 100 unit/mL solution 15 unit subcut TIDM Qty: 10 0RF Rx Instructions: plus correction of 1 unit for every 25 points BS>150 warfarin 5 mg Tablet 2.5 mg PO SUMOTUWETHSA@1600 Qty: 15 0RF warfarin 5 mg Tablet 5 mg PO FR@1600 Qty: 5 0RF docusate sodium [Colace] 100 mg Capsule 100 mg PO BID Qty: 60 0RF furosemide 20 mg tablet 20 mg PO QAM Qty: 30 0RF Rx Instructions: TAKES ADDITIONAL 20 MG 2XWK PER GMG. memantine 5 mg Tablet 5 mg PO BID Qty: 60 0RF ranolazine 500 mg Tablet Extended Release 12 Hr 500 mg PO Q12H Qty: 60 0RF umeclidinium 62.5 mcg/actuation Blister With Device 1 inh INHALATION DAILY Qty: 30 0RF magnesium oxide 400 mg magnesium Tablet 400 mg PO HS Qty: 30 0RF Changed albuterol sulfate 2.5 mg /3 mL (0.083 %) Solution For Nebulization 2.5 mg INHALATION Q6H PRN (Reason: Shortness Of Breath) Qty: 75 0RF Novolin N NPH U-100 Insulin 100 unit/mL suspension 30 unit subcut QDL Qty: 10 0RF Novolin N NPH U-100 Insulin 100 unit/mL suspension 20 unit subcut HS Qty: 10 0RF Discontinued albuterol sulfate [Proventil] 5 mg/mL Solution For Nebulization 2.5 mg INHALATION DIRECTED PRN (Reason: Shortness Of Breath) Discharge Orders: Discharge Order (Routine); Ordered 01/27/23 Ordered By: Lo Bergman/Other Patient Handouts: High Blood Sugar (Hyperglycemia), Hypoglycemia (Low Blood Sugar), Managing Type 2 Diabetes, Falls Prevent Use Cane Walker Admission Data Admit Date/Time: 01/21/23 18:40 Attending Provider: Lo Bingham I. Admit Provider: Zaria Roberto Primary Care Provider: Zachariah Duarte Other Providers: [facility] ; [place] ; Zaria Roberto ; Talat Cruz Rishikesh Other Interventions: Discharge Summary Assessment (RN) Last Done: 01/27/23 09:38
== END 2023-01-27 11:50 | DRG 543 ==
LOC: ED 14:08 → SUATTDRO 18:40 → 3N 18:40 → 2N 21:58

== ENCOUNTER 2023-08-27 14:21 | Inpatient (IN) ==
--- NOTE | 2023-08-27 14:41 | Emergency Department Note ---
Impression & Plan Acute dyspnea, Non-ST elevation PA (NSTEMI), Acute kidney injury superimposed on chronic kidney disease, Acute exacerbation of CHF (congestive heart failure), Elevated brain natriuretic peptide (BNP) level ED Provider Note HISTORY OF PRESENT ILLNESS: Patient is a 77-year-old male presenting with shortness of breath. Patient reports he woke up this morning and was significantly short of breath. He normally wears 5L NC at baseline. Reports a nonproductive cough for the last few days. He states that last night he had substernal chest pain and he took 2 sublingual nitro and the pain resolved. He has not had any pain since. Denies any recent sick contact exposures. Reports he had a low-grade fever last night. Denies any DVT or PE history. He is on aspirin and Coumadin. ROS: as above PHYSICAL EXAM: Constitutional: Patient appears in no acute distress. HENT: Head: Normocephalic and atraumatic. Eyes: EOMI, PERRL Mouth/Throat: Mucous membranes moist. Neck: Trachea midline. Neck supple. Cardiovascular: RRR, No murmurs, rubs or gallops. Intact distal pulses. Pulmonary/Chest: No respiratory distress. Breath sounds clear and equal bilaterally. On 15L non-rebreather. Coarse breath sounds bilaterally Abdominal: Abdomen soft, no tenderness, rebound or guarding. Musculoskeletal: No edema, tenderness or deformity noted. Skin: Warm and dry. No rash, erythema, pallor or cyanosis Psychiatric: Appropriate mood and affect for situation. Neurological: Alert and keenly responsive. CN II-XII grossly intact, moving all extremities equally and fully. MDM: - Vitals signs showed hypoxia. Patient was on 15 L nonrebreather and was transition to high flow nasal cannula given his work of breathing - History obtained via patient. Patient presents with shortness of breath. Patient reports he woke up this morning and was significantly short of breath. He wears 5 L nasal cannula at baseline. He has had a nonproductive cough for the last few days. He had some substernal chest pain last night took 2 sublingual nitro and the pain resolved. Has not had any pain since. Denies any recent sick contact exposures. Reports low-grade fevers last night. He is on aspirin and Coumadin. - Chronic conditions affecting care: CAD; VENICE; COPD; DM-2; HTN; HLD - Differential diagnoses include, but are not limited to: Congestive heart failure; acute coronary syndrome; COPD/asthma exacerbation; pulmonary edema; pulmonary embolism; pneumonia; pneumothorax; viral syndrome - Order placed for continuous cardiac monitoring. At this time, monitor showed rate of 81 bpm with normal sinus rhythm, per my interpretation. - External medical records reviewed. EMS run sheet was reviewed. Patient was hypoxic on his baseline nasal cannula and started on 15 L nonrebreather. - EKG interpreted by myself showed normal sinus rhythm. Rate 77 bpm. QTc 450. No acute ischemic changes. Patient is noted to have some ST depression in leads V4 and V5. - Laboratory workup interpreted by myself showed leukopenia (WBC 2.0); subtherapeutic INR (1.9); normal electrolytes; FERN on CKD (Cr 1.57); elevated troponin (1027.6); elevated BNP (785) - VBG shows respiratory acidosis (pH 7.25; pCO2 57) - Viral respiratory panel negative - CXR showed pulmonary vascular congestion, per my interpretation - Patient givne 40 mg IV lasix - Moderate risk HEART score - His BP became hypotensive. However, with repositioning of the cough and starting 500 cc of normal saline, patient blood pressure improved to 92/44 - CT PE negative for PE. Noted to have cardiomegaly and congestive failure mild pulmonary edema. Small bilateral pleural effusions. - Discussion was had with memory care program resident about patient's case and need for admission - Hospitalist consulted for admission [facility]. I have personally spent 34 minutes of critical care time in the direct management of this patient. This includes bedside care, interpretation of diagnostic studies, and testing, discussion with consultants, patient, and family members, and other required patient management activities. This 34 minutes is in excess of all separately billable procedures. ASSESSMENT AND PLAN: Diagnosis: dyspnea; FERN on CKD; NSTEMI; elevated troponin; CHF exacerbation Plan: admit Past Med/Surg History Medical History (Updated 08/27/23 @ 19:03 by Jennifer Vitale MD) Angina pectoris AAA (abdominal aortic aneurysm) PAD (peripheral artery disease) S/P angioplasty of left external iliac and right common iliac stenosis 07/2010; Dr. Brendon Royal at 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) Surgical History History of cataract surgery History of cardiac cath H/O angioplasty S/P triple vessel bypass Family History Other Diabetes Heart disease Stroke Social History Smoking Status: Never smoker Tobacco Type: Cigarettes Cigarettes Per Day: 2 per week; Second Hand Exposure: No; Do You Dip or Chew Tobacco: No; Hx Alcohol Use: No Hx Substance Use: Yes Substance Use Type Other:: Medical marijuana/RSO Gummies Preferred Language: Polish Communication Ability: Effective 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 Off Machine Unloader Required: No Beliefs That Will Affect Care: None marital status: Current Living Situation: Spouse Current Living Situation Comment: ranch home How many Children do You have: 3 Feels Safe at Home: Yes Assistive Devices: CPAP, Oxygen - at Night and Walker Allergies Allergies Allergy/AdvReac Type Severity Reaction Status Date / Time fentanyl AdvReac Intermediate vomiting Verified 08/27/23 16:07 oxycodone AdvReac Intermediate vomiting Verified 08/27/23 16:07 propoxyphene AdvReac Intermediate Nausea - Verified 08/27/23 16:07 Darvocet Home Meds Home Medications Medication Instructions Recorded Confirmed nitroglycerin 0.4 mg sublingual 0.4 mg sublingual UD PRN Chest Pain 03/01/19 08/27/23 tablet (Nitrostat) insulin NPH isoph U-100 human 100 26 unit subcut HS 08/27/23 08/27/23 unit/mL subcutaneous suspension (Novolin N NPH U-100 Insulin isophane) insulin NPH isoph U-100 human 100 36 unit subcut QDL 08/27/23 08/27/23 unit/mL subcutaneous suspension (Novolin N NPH U-100 Insulin isophane) warfarin 5 mg tablet 2.5 mg PO QPM 08/27/23 08/27/23 Previous Rx's Medication Instructions Recorded acetaminophen 500 mg tablet 1,000 mg (2 x 500 mg) PO BID #60 01/27/23 (Tylenol Extra Strength) tabs atorvastatin 80 mg tablet 80 mg PO HS #30 tabs 01/27/23 furosemide 20 mg tablet 20 mg PO QAM #30 tabs 01/27/23 insulin regular human 100 unit/mL 15 unit (0.15 mL) subcut TIDM #10 01/27/23 injection solution (Novolin R mL Regular U-100 Insulin) isosorbide mononitrate 60 mg 60 mg PO BID #60 tabs 01/27/23 tablet,extended release 24 hr magnesium oxide 400 mg PO HS #30 tabs 01/27/23 memantine 5 mg tablet 5 mg PO BID #60 tabs 01/27/23 metoprolol tartrate 100 mg tablet 100 mg PO BID #60 tabs 01/27/23 ondansetron HCl 4 mg tablet 4 mg PO Q6H PRN NAUSEA/VOMITING 01/27/23 #30 tabs pantoprazole 40 mg tablet,delayed 40 mg PO QAM #30 tabs 01/27/23 release ranolazine 500 mg tablet,extended 500 mg PO Q12H #60 tabs 01/27/23 release,12 hr trazodone 100 mg tablet 100 mg PO HS PRN Sleep #30 tabs 01/27/23 umeclidinium 62.5 mcg/actuation 1 inh inhalation DAILY #30 ea 01/27/23 blister powder for inhalation Results & Data (ED) Vital Signs Vital Signs - 24 hr 08/27/23 14:30 08/27/23 14:30 08/27/23 14:32 Temperature 36.5 C Temperature Source Oral Pulse Rate 77 77 Pulse Rate [Apical] Respiratory Rate 28 H Respiratory Effort / Characteristics Grunting Labored Grunting Labored Respiratory Depth Respiratory Pattern Gasping Grunting Blood Pressure 139/61 Blood Pressure [Right Arm] Blood Pressure Mean 87 Blood Pressure Mean [Right Arm] Blood Pressure Position Lying Blood Pressure Position [Right Arm] Pulse Oximetry 98 Oxygen Delivery Method Non-rebreather Non-rebreather Oxygen Flow Rate 10 10 Fraction of Inspired Oxygen Sepsis Recent Fever Within 48 Hours No Sepsis New/Unexplained Change in Mental Status No Sepsis Action Taken by Nursing No Action Required 08/27/23 15:00 08/27/23 15:01 08/27/23 15:57 Temperature Temperature Source Pulse Rate Pulse Rate [Apical] 79 78 93 H Respiratory Rate 30 H 30 H 26 H Respiratory Effort / Characteristics Spontaneous Short of Breath Spontaneous Respiratory Depth Respiratory Pattern Blood Pressure Blood Pressure [Right Arm] 99/60 L Blood Pressure Mean Blood Pressure Mean [Right Arm] 73 Blood Pressure Position Blood Pressure Position [Right Arm] Semi-fowlers Pulse Oximetry 90 90 94 Oxygen Delivery Method High Flow Nasal Cannula High Flow Nasal Cannula High Flow Nasal Cannula Oxygen Flow Rate 35 35 40 Fraction of Inspired Oxygen 35 60 Sepsis Recent Fever Within 48 Hours Sepsis New/Unexplained Change in Mental Status Sepsis Action Taken by Nursing 08/27/23 16:00 08/27/23 17:05 08/27/23 17:45 Temperature Temperature Source Pulse Rate Pulse Rate [Apical] 95 H 85 85 Respiratory Rate 27 H 35 H Respiratory Effort / Characteristics Respiratory Depth Respiratory Pattern Blood Pressure Blood Pressure [Right Arm] 113/53 L 103/55 L 77/46 L Blood Pressure Mean Blood Pressure Mean [Right Arm] 73 71 56 Blood Pressure Position Blood Pressure Position [Right Arm] Semi-fowlers Semi-fowlers Semi-fowlers Pulse Oximetry 95 93 Oxygen Delivery Method High Flow Nasal Cannula High Flow Nasal Cannula Oxygen Flow Rate 40 40 Fraction of Inspired Oxygen Sepsis Recent Fever Within 48 Hours Sepsis New/Unexplained Change in Mental Status Sepsis Action Taken by Nursing 08/27/23 17:51 08/27/23 18:00 08/27/23 18:41 Temperature Temperature Source Pulse Rate 82 Pulse Rate [Apical] 85 81 Respiratory Rate 23 Respiratory Effort / Characteristics Respiratory Depth Normal Respiratory Pattern Blood Pressure Blood Pressure [Right Arm] 92/44 L 99/47 L Blood Pressure Mean Blood Pressure Mean [Right Arm] 60 64 Blood Pressure Position Blood Pressure Position [Right Arm] Semi-fowlers Semi-fowlers Pulse Oximetry 97 Oxygen Delivery Method High Flow Nasal Cannula Oxygen Flow Rate 40 Fraction of Inspired Oxygen Sepsis Recent Fever Within 48 Hours Sepsis New/Unexplained Change in Mental Status Sepsis Action Taken by Nursing 08/27/23 18:43 Temperature Temperature Source Pulse Rate Pulse Rate [Apical] 81 Respiratory Rate 22 Respiratory Effort / Characteristics Respiratory Depth Normal Respiratory Pattern Blood Pressure Blood Pressure [Right Arm] 95/46 L Blood Pressure Mean Blood Pressure Mean [Right Arm] 62 Blood Pressure Position Blood Pressure Position [Right Arm] Semi-fowlers Pulse Oximetry 93 Oxygen Delivery Method High Flow Nasal Cannula Oxygen Flow Rate 40 Fraction of Inspired Oxygen Sepsis Recent Fever Within 48 Hours Sepsis New/Unexplained Change in Mental Status Sepsis Action Taken by Nursing Laboratory Data 08/27/23 14:42 08/27/23 15:55 Lab Results 08/27/23 08/27/23 08/27/23 Range/Units 14:40 14:42 14:47 WBC 2.00 L (4.8-10.8) K/ul RBC 3.99 L (4.70-6.10) M/uL Hgb 10.5 L (14.0-18.0) g/dl Hct 35.9 L (42.0-52.0) % MCV 90.0 (80.0-100.0) fL MCH 26.3 (25.0-34.0) pg MCHC 29.2 L (32.0-36.0) g/dL RDW Std Deviation 59.8 H (36.4-46.3) fL RDW Coeff of Geremias 18.1 H (11.5-14.5) % Plt Count 160 (130-400) K/uL MPV 10.9 (9.4-12.4) fL Immature Gran % (Auto) 1.0 % Neut % (Auto) 90.0 % Lymph % (Auto) 4.5 % [place] % (Auto) 1.5 % Eos % (Auto) 2.5 % Baso % (Auto) 0.5 % Neut # (Auto) 1.80 (1.40-6.50) K/uL Lymph # (Auto) 0.09 L (1.20-3.40) K/uL [place] # (Auto) 0.03 L (0.11-0.59) K/uL Eos # (Auto) 0.05 (0.00-0.50) K/uL Baso # (Auto) 0.01 (0.00-0.20) K/uL Immature Gran # (Auto) 0.02 (0.01-0.20) K/uL PT (9.0-12.0) Seconds INR (0.9-1.1) VBG pH 7.25 L (7.36-7.41) VBG pCO2 57 H (38-50) mmHg VBG pO2 26 mmHg VBG HCO3 25 mmol/L VBG O2 Saturation < 60.0 % VBG Base Excess -3.1 mEq/L Sodium Cancelled Potassium Cancelled Chloride Cancelled Carbon Dioxide Cancelled Anion Gap Cancelled BUN Cancelled Creatinine Cancelled Est Cr Clr Drug Dosing Cancelled Est GFR ( Amer) Cancelled Est GFR (Non-Af Amer) Cancelled BUN/Creatinine Ratio Cancelled Glucose Cancelled Calcium Cancelled Magnesium Cancelled Total Bilirubin Cancelled AST Cancelled ALT Cancelled Alkaline Phosphatase Cancelled Troponin I High Sens Cancelled B-Natriuretic Peptide (0-100) pg/ml Total Protein Cancelled Albumin Cancelled Globulin Cancelled Albumin/Globulin Ratio Cancelled Adenovirus (PCR) Not Detected (NotDetected) B. pertussis DNA (PCR) Not Detected (NotDetected) B.parapertussis DNA PCR Not Detected (NotDetected) C. pneumoniae DNA (PCR) Not Detected (NotDetected) Coronavirus OC43 (PCR) Not Detected (NotDetected) Coronavirus HKU1 (PCR) Not Detected (NotDetected) Coronavirus 229E (PCR) Not Detected (NotDetected) SARS-CoV-2 (PCR) Not Detected (NotDetected) Coronavirus NL63 (PCR) Not Detected (NotDetected) Human Metapneumovir PCR Not Detected (NotDetected) Influenza Type A (PCR) Not Detected (NotDetected) Influenza Type B (PCR) Not Detected (NotDetected) M. pneumoniae (PCR) Not Detected (NotDetected) Parainfluenza 1 (PCR) Not Detected (NotDetected) Parainfluenza 2 (PCR) Not Detected (NotDetected) Parainfluenza 3 (PCR) Not Detected (NotDetected) Parainfluenza 4 (PCR) Not Detected (NotDetected) RSV (PCR) Not Detected (NotDetected) Entero/Rhino (PCR) Not Detected (NotDetected) 08/27/23 Range/Units 15:55 WBC (4.8-10.8) K/ul RBC (4.70-6.10) M/uL Hgb (14.0-18.0) g/dl Hct (42.0-52.0) % MCV (80.0-100.0) fL MCH (25.0-34.0) pg MCHC (32.0-36.0) g/dL RDW Std Deviation (36.4-46.3) fL RDW Coeff of Geremias (11.5-14.5) % Plt Count (130-400) K/uL MPV (9.4-12.4) fL Immature Gran % (Auto) % Neut % (Auto) % Lymph % (Auto) % [place] % (Auto) % Eos % (Auto) % Baso % (Auto) % Neut # (Auto) (1.40-6.50) K/uL Lymph # (Auto) (1.20-3.40) K/uL [place] # (Auto) (0.11-0.59) K/uL Eos # (Auto) (0.00-0.50) K/uL Baso # (Auto) (0.00-0.20) K/uL Immature Gran # (Auto) (0.01-0.20) K/uL PT 19.8 H (9.0-12.0) Seconds INR 1.9 H (0.9-1.1) VBG pH (7.36-7.41) VBG pCO2 (38-50) mmHg VBG pO2 mmHg VBG HCO3 mmol/L VBG O2 Saturation % VBG Base Excess mEq/L Sodium 142 Potassium 3.9 Chloride 109 H Carbon Dioxide 24 Anion Gap 9 BUN 33 H Creatinine 1.57 H Est Cr Clr Drug Dosing 41.6 Est GFR ( Amer) 48.2 Est GFR (Non-Af Amer) 41.6 BUN/Creatinine Ratio 21.0 H Glucose 94 Calcium 8.0 L Magnesium 2.2 Total Bilirubin 1.6 H AST 19 ALT 11 Alkaline Phosphatase 112 H Troponin I High Sens 1027.6 H* B-Natriuretic Peptide 785 H (0-100) pg/ml Total Protein 6.8 Albumin 3.7 Globulin 3.1 Albumin/Globulin Ratio 1.2 Adenovirus (PCR) (NotDetected) B. pertussis DNA (PCR) (NotDetected) B.parapertussis DNA PCR (NotDetected) C. pneumoniae DNA (PCR) (NotDetected) Coronavirus OC43 (PCR) (NotDetected) Coronavirus HKU1 (PCR) (NotDetected) Coronavirus 229E (PCR) (NotDetected) SARS-CoV-2 (PCR) (NotDetected) Coronavirus NL63 (PCR) (NotDetected) Human Metapneumovir PCR (NotDetected) Influenza Type A (PCR) (NotDetected) Influenza Type B (PCR) (NotDetected) M. pneumoniae (PCR) (NotDetected) Parainfluenza 1 (PCR) (NotDetected) Parainfluenza 2 (PCR) (NotDetected) Parainfluenza 3 (PCR) (NotDetected) Parainfluenza 4 (PCR) (NotDetected) RSV (PCR) (NotDetected) Entero/Rhino (PCR) (NotDetected) Administered Medications Discontinued Medications Aspirin (Aspirin Chew 324 Mg) 324 mg PO NOW STA Stop: 08/27/23 16:49 Last Admin: 08/27/23 16:56 Dose: 324 mg Documented By: ALDO Furosemide (Furosemide 40 Mg/4 Ml Vial) 40 mg IV ONE ONE Stop: 08/27/23 15:37 Last Admin: 08/27/23 15:48 Dose: 40 mg Documented By: ALDO Ioversol (Optiray 320 125ml) 114 ml IV ONCE ONE Stop: 08/27/23 18:33 Last Admin: 08/27/23 18:32 Dose: 114 ml Documented By: RIAN Ondansetron HCl (Ondansetron Inj 2 Mg/Ml 2 Ml Vial) Confirm Administered Dose 4 mg .ROUTE .STK-MED ONE Stop: 08/27/23 15:54 Last Admin: 08/27/23 15:57 Dose: 4 mg Documented By: ALDO Ondansetron HCl (Ondansetron Inj 2 Mg/Ml 2 Ml Vial) 4 mg IV NOW STA Stop: 08/27/23 15:56 Last Admin: 08/27/23 15:59 Dose: Not Given Documented By: ALDO Imaging Data Radiologist's Impression: Chest X-Ray 08/27/23 14:39 XR chest 1V portable HISTORY: Dyspnea COMPARISON: Chest 01/21/2023. FINDINGS: The heart is enlarged with progressive interstitial/vascular thickening and hazy airspace opacities. This is consistent with moderate pulmonary edema. No pneumothorax. Low lung volumes. No pleural effusions. There are poststernotomy changes. No acute fractures. IMPRESSION: Cardiomegaly with progressive interstitial/vascular thickening consistent with moderate pulmonary edema. ACT 112: Negative or not required by law. Electronically signed by: Norberto Chan M.D. 08/27/2023 3:11 PM Chest CTA 08/27/23 17:54 CT ANGIOGRAM OF THE CHEST CLINICAL HISTORY: Dyspnea. COMPARISON STUDY: Chest x-ray dated 08/27/2023. Chest CT dated 10/21/2021. TECHNIQUE: Following the IV administration of 114 cc of Optiray 320, CT angiogram of the chest was performed from the upper abdomen to the thoracic inlet utilizing the pulmonary embolus protocol. Images are reviewed in the axial, sagittal, and coronal planes. 3-D MIPS images are created and assessed. IV contrast was administered without complication. A dose lowering technique was utilized adhering to the principles of ALARA. CT DOSE: 804.11 mGy.cm FINDINGS: Thyroid: Imaged portions of the thyroid gland are normal in size and attenuation. Thoracic aorta: There is atherosclerotic calcification of the thoracic aorta, which is normal in caliber and demonstrates standard 3-vessel arch anatomy. No dissection is seen. Pulmonary vasculature: The pulmonary trunk is normal in caliber. There are no filling defects identified in main, lobar, or segmental pulmonary branches to suggest pulmonary embolus. Heart: The patient is status post midline sternotomy. The heart is enlarged and without pericardial effusion. The coronary arteries are densely calcified. Lungs and pleural spaces: Evaluation of the lung parenchyma is degraded by motion artifact. Emphysema and chronic interstitial thickening is similar to previous. There are small pleural effusions with dependent consolidation. Intralobular septal thickening is noted with associated peribronchial and interstitial thickening with patchy groundglass opacity. There are scattered calcified granulomas. The trachea and central airways are clear. Low suspicion foci of pleural-based nodularity are again seen along an accessory fissure in the right upper lobe. Mediastinum: There are mild enlargement of central lymph nodes. A right paratracheal node on image #147 measures 13 mm short axis and a high right paratracheal node on image #166 measures 14 mm in short axis. Vicki: Mildly enlarged hilar lymph nodes measure up to 15 mm in short axis. Axillae: There is no axillary lymphadenopathy. Upper abdomen: A small hiatal hernia. The gallbladder is distended but otherwise normal as imaged. Skeletal structures: The skeletal structures are osteopenic. Degenerative change is noted in the shoulders and thoracic spine. No lytic or blastic bony lesions are seen. IMPRESSION: 1. There is no evidence of pulmonary embolus in the main, lobar, or segmental pulmonary arteries. 2. Cardiomegaly and emphysema with evidence of congestive failure and mild pulmonary edema. Radiographic follow-up to resolution is recommended. 3. Small pleural effusions with dependent consolidation. 4. The gallbladder is distended but otherwise normal as imaged. If there is clinical concern for gallbladder disease then a right upper quadrant ultrasound should be obtained. 5. Mildly enlarged mediastinal and hilar lymph nodes are nonspecific and similar to the 10/21/2021 examination. Correlate clinically and follow-up if warranted. 6. Additional findings as above. ACT 112: Negative or not required by law. Electronically signed by: Fei Dolan M.D. 08/27/2023 6:55 PM Discharge Plan Visit Data Chief Complaint: Shortness of Breath/Dyspnea ED Provider: Jennifer Vitale Discharge Problem: Acute dyspnea, Non-ST elevation PA (NSTEMI), Acute kidney injury superimposed on chronic kidney disease, Acute exacerbation of CHF (congestive heart failure), Elevated brain natriuretic peptide (BNP) level Forms Stand Alone Forms: [facility] [facility] Prescriptions Prescriptions: No Action nitroglycerin [Nitrostat] 0.4 mg Tablet, Sublingual 0.4 mg sublingual UD MDD 3 doses in 15 minutes PRN (Reason: Chest Pain) Rx Instructions: place 1 tab under tongue every 5 min as needed for pain. atorvastatin 80 mg Tablet 80 mg PO HS Qty: 30 0RF metoprolol tartrate 100 mg Tablet 100 mg PO BID Qty: 60 0RF ondansetron HCl 4 mg Tablet 4 mg PO Q6H PRN (Reason: NAUSEA/VOMITING) Qty: 30 0RF acetaminophen [Tylenol Extra Strength] 500 mg Tablet 1,000 mg PO BID Qty: 60 0RF isosorbide mononitrate 60 mg Tablet Extended Release 24 Hr 60 mg PO BID Qty: 60 0RF trazodone 100 mg tablet 100 mg PO HS PRN (Reason: Sleep) Qty: 30 0RF pantoprazole 40 mg Tablet,Delayed Release (Dr/Ec) 40 mg PO QAM Qty: 30 0RF Novolin R Regular U100 Insulin 100 unit/mL solution 15 unit subcut TIDM Qty: 10 0RF Rx Instructions: plus correction of 1 unit for every 25 points BS>150 furosemide 20 mg tablet 20 mg PO QAM Qty: 30 0RF Rx Instructions: TAKES ADDITIONAL 20 MG 2XWK PER GMG. memantine 5 mg Tablet 5 mg PO BID Qty: 60 0RF ranolazine 500 mg Tablet Extended Release 12 Hr 500 mg PO Q12H Qty: 60 0RF umeclidinium 62.5 mcg/actuation Blister With Device 1 inh INHALATION DAILY Qty: 30 0RF magnesium oxide 400 mg magnesium Tablet 400 mg PO HS Qty: 30 0RF warfarin 5 mg tablet 2.5 mg PO QPM Novolin N NPH U-100 Insulin 100 unit/mL suspension 36 unit subcut QDL Novolin N NPH U-100 Insulin 100 unit/mL suspension 26 unit subcut HS Referrals Referrals: Zachariah Duarte DO [Primary Care Provider] -
[2023-08-27 15:00] LABS: Base Excess VBG -3.1 mEq/L; HCO3 VBG 25 mmol/L; Oxygen Saturation VBG < 60.0 %; PCO2 VBG 57 mmHg (38-50); PO2 VBG 26 mmHg; pH VBG 7.25 (7.36-7.41)
--- NOTE | 2023-08-27 15:12 | XRay Report ---
XR chest 1V portable HISTORY: Dyspnea COMPARISON: Chest 01/21/2023. FINDINGS: The heart is enlarged with progressive interstitial/vascular thickening and hazy airspace o pacities. This is consistent with moderate pulmonary edema. No pneumothorax. Low lung volumes. No ple ural effusions. There are poststernotomy changes. No acute fractures. IMPRESSION: Cardiomegaly with progressive interstitial/vascular thickening consistent with moderate pulmonary tre ma. ACT 112: Negative or not required by law. Electronically signed by: Norberto Chan M.D. 08/27/2023 3:11 PM
[2023-08-27] MEDS ORDERED: FUROSEMIDE 40 MG/4 ML VIAL IV ONE (15:36)
--- NOTE | 2023-08-27 15:41 | Electrocardiogram Report ---
Test Reason : Blood Pressure : / mmHG Vent. Rate : 077 BPM Atrial Rate : 077 BPM P-R Int : 194 ms QRS Dur : 084 ms QT Int : 398 ms P-R-T Axes : 041 -47 125 degrees QTc Int : 450 ms Normal sinus rhythm Left axis deviation Abnormal ECG When compared with ECG of 22-JAN-2023 05:01, OK interval has decreased QRS duration has decreased Confirmed by Jesse Flores ([id number]) on 08/27/2023 3:41:17 PM Referred By: Confirmed By:Jesse Flores
[2023-08-27 15:49] LABS: Adenovirus PCR Not Detected (NotDetected); Bordetella parapertussis PCR Not Detected (NotDetected); Bordetella pertussis PCR Not Detected (NotDetected); Chlamydia pneumoniae PCR Not Detected (NotDetected); Coronavirus 229E PCR Not Detected (NotDetected); Coronavirus CoV-2 (COVID19)PCR Not Detected (NotDetected); Coronavirus HKU1 PCR Not Detected (NotDetected); Coronavirus NL63 PCR Not Detected (NotDetected); Coronavirus OC43PCR Not Detected (NotDetected); Human Metapneumovirus PCR Not Detected (NotDetected); Influenza A PCR Not Detected (NotDetected); Influenza B PCR Not Detected (NotDetected); Mycoplasma pneumoniae PCR Not Detected (NotDetected); Parainfluenza Virus 1 PCR Not Detected (NotDetected); Parainfluenza Virus 2 PCR Not Detected (NotDetected); Parainfluenza Virus 3 PCR Not Detected (NotDetected); Parainfluenza Virus 4 PCR Not Detected (NotDetected); Respiratory Syncytial VirusPCR Not Detected (NotDetected); Rhinovirus/Enterovirus PCR Not Detected (NotDetected)
[2023-08-27] MEDS ORDERED: ONDANSETRON INJ 2 MG/ML 2 ML VIAL ONE (15:53)
[2023-08-27] MEDS ORDERED: ONDANSETRON INJ 2 MG/ML 2 ML VIAL IV STA (15:55)
[2023-08-27 16:40] LABS: Albumin Globulin Ratio 1.2 (0.9-2); Albumin Level 3.7 gm/dl (3.4-5.0); Bilirubin,Total 1.6 mg/dl (0.2-1.0); Creatinine Clr Calc Pharmacy 41.6 ml/min; Est GFR (African American) 48.2 ml/min; Est GFR (Non-African American) 41.6 ml/min; Globulin 3.1 gm/dl (2.5-4.0); Magnesium 2.2 mg/dl (1.7-2.4); Potassium 3.9 mmol/L (3.5-5.1); Total Protein 6.8 gm/dl (6.0-8.3)
[2023-08-27 16:48] LABS: INR 1.9 (0.9-1.1); Prothrombin Time 19.8 Seconds (9.0-12.0)
[2023-08-27] MEDS ORDERED: ASPIRIN CHEW 324 MG PO STA (16:48)
[2023-08-27 16:49] LABS: Troponin I High Sensitivity 1027.6 pg/ml (0-20)
[2023-08-27 17:04] LABS: Basophils # (auto) 0.01 K/uL (0.00-0.20); Basophils % (auto) 0.5 %; Eosinophils # (auto) 0.05 K/uL (0.00-0.50); Eosinophils % (auto) 2.5 %; Hematocrit (blood only) 35.9 % (42.0-52.0); Hemoglobin 10.5 g/dl (14.0-18.0); Immature Granulocytes # (auto) 0.02 K/uL (0.01-0.20); Lymphocytes # (auto) 0.09 K/uL (1.20-3.40); Lymphocytes % (auto) 4.5 %; Mean Corpuscular Hemoglobin 26.3 pg (25.0-34.0); Mean Corpuscular Hgb Conc 29.2 g/dL (32.0-36.0); Mean Platelet Volume 10.9 fL (9.4-12.4); Monocytes # (auto) 0.03 K/uL (0.11-0.59); Monocytes % (auto) 1.5 %; Platelet Count 160 K/uL (130-400); RDW Coefficient of Variation 18.1 % (11.5-14.5); RDW Standard Deviation 59.8 fL (36.4-46.3); Red Blood Count 3.99 M/uL (4.70-6.10)
[2023-08-27] MEDS ORDERED: OPTIRAY 320 125ml IV ONE (18:32)
[2023-08-27] MEDS ORDERED: Heparin IV Adult Wt-Based Standard *NO* INITIAL Bolus Protocol IV STA (18:42)
--- NOTE | 2023-08-27 18:58 | CT Scan Report ---
CT ANGIOGRAM OF THE CHEST CLINICAL HISTORY: Dyspnea. COMPARISON STUDY: Chest x-ray dated 08/27/2023. Chest CT dated 10/21/2021. TECHNIQUE: Following the IV administration of 114 cc of Optiray 320, CT angiogram of the chest was pe rformed from the upper abdomen to the thoracic inlet utilizing the pulmonary embolus protocol. Images are reviewed in the axial, sagittal, and coronal planes. 3-D MIPS images are created and assessed. I V contrast was administered without complication. A dose lowering technique was utilized adhering to the principles of ALARA. CT DOSE: 804.11 mGy.cm FINDINGS: Thyroid: Imaged portions of the thyroid gland are normal in size and attenuation. Thoracic aorta: There is atherosclerotic calcification of the thoracic aorta, which is normal in vic perez and demonstrates standard 3-vessel arch anatomy. No dissection is seen. Pulmonary vasculature: The pulmonary trunk is normal in caliber. There are no filling defects identif ied in main, lobar, or segmental pulmonary branches to suggest pulmonary embolus. Heart: The patient is status post midline sternotomy. The heart is enlarged and without pericardial e ffusion. The coronary arteries are densely calcified. Lungs and pleural spaces: Evaluation of the lung parenchyma is degraded by motion artifact. Emphysema and chronic interstitial thickening is similar to previous. There are small pleural effusions with d ependent consolidation. Intralobular septal thickening is noted with associated peribronchial and int erstitial thickening with patchy groundglass opacity. There are scattered calcified granulomas. The t rachea and central airways are clear. Low suspicion foci of pleural-based nodularity are again seen a long an accessory fissure in the right upper lobe. Mediastinum: There are mild enlargement of central lymph nodes. A right paratracheal node on image #1 [id number] measures 13 mm short axis and a high right paratracheal node on image #166 measures 14 mm in short axis. Vicki: Mildly enlarged hilar lymph nodes measure up to 15 mm in short axis. Axillae: There is no axillary lymphadenopathy. Upper abdomen: A small hiatal hernia. The gallbladder is distended but otherwise normal as imaged. Skeletal structures: The skeletal structures are osteopenic. Degenerative change is noted in the shou lders and thoracic spine. No lytic or blastic bony lesions are seen. IMPRESSION: 1. There is no evidence of pulmonary embolus in the main, lobar, or segmental pulmonary arteries. 2. Cardiomegaly and emphysema with evidence of congestive failure and mild pulmonary edema. Radiograp hic follow-up to resolution is recommended. 3. Small pleural effusions with dependent consolidation. 4. The gallbladder is distended but otherwise normal as imaged. If there is clinical concern for gall bladder disease then a right upper quadrant ultrasound should be obtained. 5. Mildly enlarged mediastinal and hilar lymph nodes are nonspecific and similar to the 10/21/2021 exam ination. Correlate clinically and follow-up if warranted. 6. Additional findings as above. ACT 112: Negative or not required by law. Electronically signed by: Fei Dolan M.D. 08/27/2023 6:55 PM
[2023-08-27] MEDS ORDERED: HEPARIN SODIUM/DEXTROSE 25,000 UNITS/500 ML BAG IV SCH (19:00)
--- NOTE | 2023-08-27 19:50 | Critical Care Consultation ---
Date of Consultation August 27, 2023 Assessment & Plan (1) COPD (chronic obstructive pulmonary disease): (2) HLD (hyperlipidemia): (3) Diabetes mellitus, type II: (4) HTN (hypertension): (5) CAD (coronary artery disease): (6) VENICE (obstructive sleep apnea): (7) Angina pectoris: (8) Acute exacerbation of CHF (congestive heart failure): Plan Overall 77 YOM with cardiac and pulmonary history: At this time most likely that he is experiencing an acute exacerbation of CHF possibly more right than left sided secondary to increase in pulmonary efforts. He was retaining some CO2 on arrival and would treat for COPD exacerbation. Continue with diuresing and with respiratory support. Continue with CPAP 5-10 home settings and consider transitioning to BiPAP if increase in work of breathing or pulmonary edema. Current recommendations: - As he is without vasopressor or inotropic needs at this time nor without immediate need for airway intervention, he can be followed on PCU - From a hemodynamic standpoint- continue with diuresing, BiPAP or CPAP overnight to assist with work of breathing and offloading LV- continue to diurese- would tolerate mild hypotension to allow for diuresing and follow renal indices and perfusion markers. - HScTNI has already trended down- making type II most likely - defer further management to primary service Believe his elevation in his HScTNI and BNP without acute ECG changes are demand from his dyspnea and relative hypoxia- likely Type II demand- Repeat ECHO and cardiology consult may help - His dyspnea is likely worsening of his underlying pulmonary disease- he is only on umeclidinium at home- no PFTs available for review- consider pulmonary consultation for adjustment of inhalers and should have follow up as outpatient with repeat PFTS - He has increase in intraseptal thickening and ground glass opacities- he has had this in the past as well as with lymph-nodes in mediastinum and hilar- I am unsure if this has been serially followed or had further workup- - This may be inflammatory, however with chronicity consider DDX- pulmonary edema, ILD like picture, or inflammatory as above- as well as other - would treat for COPD exacerbation with increase in his CO2 and resp iratory acidosis - Would repeat VBG or ABG to evaluate pulmonary status following treatments - Pleural effusions are mild and do not require intervention to drain- diurese - Continue with home CPAP settings 5-10 autoPAP or BiPAP if indicated - Mild leukopenia- send PCT- currently do not favor a bacterial infection like picture on the pulmonary side Please feel free to consult us if patient deteriorates overnight, otherwise as above and consider pulmonary consultation for above Follow up with outpatient django developer and repeat imaging at interval time would also be favorable. 2144 Addendum: Patient will be admitted to ICU for closer monitoring and vasopressor support as needed ICU CONSULT NOTE FORMAT: Neuro - No acute needs at this time CAM ICU: NEGATIVE Cardiac - HFpEF exacerbation, CAD in [place] and bypassed vessels, PAD, Hypotensive shock unspecified, angina - Patient originally responded well to diureses at initial time of evaluation- he was then found to be hypotensive with HFNC off and hypoxic - Hypotension may have multitude of factors at this time to include hypercarbia, cardiogenic in nature, or medication induced in light of worsening renal function and clearance; however he is not bradycardic at this time - Will give 1-2 GM Calcium Gluconate as CA is low and likely to assist with contractility and hemodynamic support - Will evlauate with bedside POCUS on arrival,. recheck ABG, - Vasopressor in form of Norsynephrine if needed to maintain MAPS 60-65 - Check lactate - HScTNI as above likely elevated secondary to type II demand in setting of chronic cardiac pathology- however heparin infusion initiated by admitting service, continue until cardiology evaluation completed as possible had some angina and decision made on invasive evaluation completed. - Diurese as able - Hold BB and other hypertensive agents until hemodynamics proven stable, likely able to restart in AM Respiratory - COPD, VENICE, Abnormal CT of chest - As above - Continue EMELINA, LABA/LAMA- - HFNC, CPAP, BiPAP as needed for to ease respiratory efforts and at night - With his ground glass opacities appearing chronic in nature will benefit from pulmonary follow up with repeat PFTS and following of lymphadenopathy- see above GI - Distended gallbladder - Fevers, chills, elevated alkphos and bilirubin- noted enlargement on CT scan chest- will obtain RUQUS RENAL/LYTES - Respiratory Acidosis - Improved as above - Continue supportive care - Follow electrolytes - NO acute needs -Condom cath for accurate HARLEEN - Declined miller but was OK with Condom cath ENDO - DMII Hold oral hyperglycemics- will place on ICU hyper and hypoglycemic protocol. HEME - Leukopenia, Anemia - Respiratory biofire negative for viruses tested for - Will check PCT however doubt bacterial pulmonary infection at this time, blood culture and urine culture will be obtained - With his lymphadenopathy in chest - follow cell lines, if remain low will add peripheral smear ID - As above in HEME - PCT elevated 3.74, Lactate normal, Leukpenia, afebrile - Will place on emperiic GI coverage abx with distended gallbladder- Zosyn 4.5 IV q8, Daptomycin emperic - MRSA swab - await urine and blood cultures LINES/IV ACCESS - PIV, Continue use of these lines - May need Sargent for accurate hemodynamic assessment, possible vasopressor need, and blood draws DVT PROPHYLAXIS - - SCDS- Heparin infusion DISPO: ICU until hemodynamics and respiratory efforts proven stable and improving I have personally spent 55 minutes of critical care time in the direct management of this patient. This is a life/limb threatening event. This includes time spent evaluating patient, direct bedside care, chart review, placing orders, interpretation of diagnostic studies, discussion with consultants, patient, and family members, as well as other required patient management activities. This time is exclusive of all separately billable procedures, and teaching time and separate from and in addition to any other critical care service time. Thank you for allowing us to participate in the care of this patient. Please refer to my attending physician's documentation for any further recommendations. History of Present Illness Reason for Consultation: hypotension, dyspnea Requesting Physician: Azra Baird PA-C Attending Physician: Dori Padilla History of Present Illness 77 YOM with medical history of: COPD on home oxygen 5L, VENICE (CPAP [id number] reported), CAD 1988 with hx of CABG PFEIFFER/LAD/SVG to circ and OM and PDA, PCI in 2019 to SVGs, PAD with PTCA 2009, AAA, HTN, Aflutter x1 eppisode. Patient comes to the EMD today for complaints of worsening dyspnea, cough that started today, and chest pain for which he took 2 nitroglycerine last night with minimal relief. The patient was accompanied by his who assisted in medical history gathering. Patient and state that he had fevers and chills over the past 3 days with increasing shortness of breath and a non-productive cough that started yesterday and into this morning. He did have ches pain in his upper left chest and was unsure if it was worse with coughing or with movement. He took 2 nitroglycerine tablets with minimal relieve, but currently he feels his chest pain is gone. He endorsed that he had some radiation of the pain down into his right fingers in the morning, but this has also resolved. In regards to his shortness of breath, he and report that he had very fast breathing this morning with what she felt was respiratory rates in the 40s, this did not improve until this afternoon while in the EMD following initiation of HFNC and Lasix. He had a VBG on arrival that was consistent with Respiratory Acidosis. He had routine labs performed to include HScTNI, BNP, VBG, and ECG performed. He was noted with increased BNP and HsCTNI >1000 with ECG that did no have acute STEMI changes. He had an CTA of the chest performed that was negative for PE, but did have increase in ground glass opacities when compared to previous in 2021, and small pleural effusions (see offical interpretation below). Initially consulted secondary to increased work of breathing and borderline blood pressures with SBP [id number] with MAPS 69-74. On evaluation in the EMD the patient was s/p Lasix, HFNC, and CTA completion. He is actually lying flat in bed and had just finished rolling side to side following DR. Garcia evaluation and he was not conversationally dyspneic, did not suffer from drop in oxygen saturation, and without ectopy on the monitor. He is warm and well perfused. As night progressed at 0- patient was noted to be hypotensive and with HFNC not in and hypoxic. Notified by admitting service and patient will be transferred to ICU for overall closer monitoring as well as hemodynamic support if required. CODE: FULL Allergies Allergy/AdvReac Type Severity Reaction Status Date / Time fentanyl AdvReac Intermediate vomiting Verified 08/27/23 16:07 oxycodone AdvReac Intermediate vomiting Verified 08/27/23 16:07 propoxyphene AdvReac Intermediate Nausea - Verified 08/27/23 16:07 Darvocet Home Medications Medication Instructions Recorded Confirmed Type nitroglycerin 0.4 mg sublingual 0.4 mg sublingual UD PRN Chest Pain 03/01/19 08/27/23 History tablet (Nitrostat) acetaminophen 500 mg tablet 1,000 mg (2 x 500 mg) PO BID #60 01/27/23 08/27/23 Rx (Tylenol Extra Strength) tabs atorvastatin 80 mg tablet 80 mg PO HS #30 tabs 01/27/23 08/27/23 Rx furosemide 20 mg tablet 20 mg PO QAM #30 tabs 01/27/23 08/27/23 Rx insulin regular human 100 unit/mL 15 unit (0.15 mL) subcut TIDM #10 01/27/23 08/27/23 Rx injection solution (Novolin R mL Regular U-100 Insulin) isosorbide mononitrate 60 mg 60 mg PO BID #60 tabs 01/27/23 08/27/23 Rx tablet,extended release 24 hr magnesium oxide 400 mg PO HS #30 tabs 01/27/23 08/27/23 Rx memantine 5 mg tablet 5 mg PO BID #60 tabs 01/27/23 08/27/23 Rx metoprolol tartrate 100 mg tablet 100 mg PO BID #60 tabs 01/27/23 08/27/23 Rx ondansetron HCl 4 mg tablet 4 mg PO Q6H PRN NAUSEA/VOMITING 01/27/23 08/27/23 Rx #30 tabs pantoprazole 40 mg tablet,delayed 40 mg PO QAM #30 tabs 01/27/23 08/27/23 Rx release ranolazine 500 mg tablet,extended 500 mg PO Q12H #60 tabs 01/27/23 08/27/23 Rx release,12 hr trazodone 100 mg tablet 100 mg PO HS PRN Sleep #30 tabs 01/27/23 08/27/23 Rx umeclidinium 62.5 mcg/actuation 1 inh inhalation DAILY #30 ea 01/27/23 08/27/23 Rx blister powder for inhalation cholecalciferol (vitamin D3) 25 25 mcg PO DAILY 08/27/23 08/27/23 History mcg (1,000 unit) tablet insulin NPH isoph U-100 human 100 26 unit subcut HS 08/27/23 08/27/23 History unit/mL subcutaneous suspension (Novolin N NPH U-100 Insulin isophane) insulin NPH isoph U-100 human 100 36 unit subcut QDL 08/27/23 08/27/23 History unit/mL subcutaneous suspension (Novolin N NPH U-100 Insulin isophane) vitamin E 1,000 unit tablet 1 tab PO DAILY 08/27/23 08/27/23 History warfarin 5 mg tablet 2.5 mg PO QPM 08/27/23 08/27/23 History Patient History Medical History Closed T12 fracture Atrial flutter Tobacco use Angina pectoris AAA (abdominal aortic aneurysm) PAD (peripheral artery disease) S/P angioplasty of left external iliac and right common iliac stenosis 07/2010; Dr. Brendon Royal at [facility] [place] Chronic back pain VENICE (obstructive sleep apnea) CAD (coronary artery disease) s/p angioplasty RCA in 1988, s/p CABG x 3 in 1997; NSTEMI demand ischemia after spinal surgery in 2012; S/P WDAYNE and angioplasty left circumflex in 2016 HTN (hypertension) GERD (gastroesophageal reflux disease) COPD (chronic obstructive pulmonary disease) HLD (hyperlipidemia) Diabetes mellitus, type II Diabetes Surgical History History of cataract surgery History of cardiac cath H/O angioplasty S/P triple vessel bypass Family History Other Diabetes Heart disease Stroke Social History Smoking Status: Former smoker Tobacco Type: Cigarettes Cigarettes Per Day: 2 per week; Second Hand Exposure: No; Do You Dip or Chew Tobacco: No; Hx Alcohol Use: No Hx Substance Use: Yes Substance Use Type Other:: Medical marijuana/RSO Gummies Preferred Language: Kyrgyz Communication Ability: Effective Investigation Specialist Required: No Beliefs That Will Affect Care: None marital status: Current Living Situation: Spouse Current Living Situation Comment: [facility] How many Children do You have: 3 Other Information That Helps Us Care for You: No Feels Safe at Home: Yes Safety Concerns: Feels Safe At This Time Assistive Devices: Cane, Scooter/Electric Scooter and Walker Review of Systems Review of Systems: REVIEW OF SYSTEMS: Constitutional: (+) fever, sweats or chills Eyes: No diplopia, no worsening or blurred vision ENT: normal hearing, no trouble swallowing Respiratory: (+) cough, dyspnea at rest or on exertion, sputum, Cardiovascular: (+) chest pain resolved, tightness or palpitations Abdomen: No pain, nausea, vomiting, diarrhea or constipation Musculoskeletal: No joint pain, calf pain, swelling Neurologic: No weakness, numbness/tingling, or balance problems Skin: No rash or itch Physical Exam Physical Exam: PHYSICAL EXAM: General: awake, alert, no apparent distress Head: Normocephalic, atraumatic ENT: PERRLA, EOMI, no pharyngeal exudate, mucous membranes moist Neuro: AAO x 3, speech clear and appropriate, strength intact bilaterally 5/5, sensation intact and equal all extremities and dermatomes, no pronator drift Chest: equal rise and fall of the chest, no accessory muscle use, no heaves or thrills, scattered crackles throughout, not bronchospastic, Cardiac: Regular rate and rhythm, telemetry reviewed- NSR no ectopy, skin warm dry, cap refill <3 seconds, peripheral pulses +2 no JVD, no murmur, no overt peripheral edema GI: NABS x 4 quadrants, soft, epigastric pain with palpation, no rebound, guarding or tenderness : Spontaneously voiding, no pain, no CVA tenderness, Skin: no rash or erythema Results & Data Results & Data Vital Signs (Past 12 Hours) Vital Signs Temp Pulse Pulse Resp BP BP Pulse Ox 08/27/23 18:43 81 22 95/46 L 93 08/27/23 18:41 82 08/27/23 18:00 81 23 99/47 L 97 08/27/23 17:51 85 92/44 L 08/27/23 17:45 85 77/46 L 08/27/23 17:05 85 35 H 103/55 L 93 08/27/23 16:00 95 H 27 H 113/53 L 95 08/27/23 15:57 93 H 26 H 94 08/27/23 15:01 78 30 H 90 08/27/23 15:00 79 30 H 99/60 L 90 08/27/23 14:32 77 08/27/23 14:30 36.5 C 77 28 H 139/61 98 08/27/23 14:30 O2 Del Method O2 Flow Rate FiO2 08/27/23 18:43 High Flow Nasal Cannula 40 08/27/23 18:41 08/27/23 18:00 High Flow Nasal Cannula 40 08/27/23 17:51 08/27/23 17:45 08/27/23 17:05 High Flow Nasal Cannula 40 08/27/23 16:00 High Flow Nasal Cannula 40 08/27/23 15:57 High Flow Nasal Cannula 40 60 08/27/23 15:01 High Flow Nasal Cannula 35 35 08/27/23 15:00 High Flow Nasal Cannula 35 08/27/23 14:32 08/27/23 14:30 Non-rebreather 10 08/27/23 14:30 Non-rebreather 10 Laboratory Results Abnormal lab results 08/27/23 08/27/23 08/27/23 Range/Units 14:40 14:42 15:55 WBC 2.00 L (4.8-10.8) K/ul RBC 3.99 L (4.70-6.10) M/uL Hgb 10.5 L (14.0-18.0) g/dl Hct 35.9 L (42.0-52.0) % MCHC 29.2 L (32.0-36.0) g/dL RDW Std Deviation 59.8 H (36.4-46.3) fL RDW Coeff of Geremias 18.1 H (11.5-14.5) % Lymph # (Auto) 0.09 L (1.20-3.40) K/uL Rains # (Auto) 0.03 L (0.11-0.59) K/uL PT 19.8 H (9.0-12.0) Seconds INR 1.9 H (0.9-1.1) VBG pH 7.25 L (7.36-7.41) VBG pCO2 57 H (38-50) mmHg Chloride 109 H (98-107) mmol/L BUN 33 H (6-23) mg/dl Creatinine 1.57 H (0.6-1.4) mg/dl BUN/Creatinine Ratio 21.0 H (10-20) Calcium 8.0 L (8.6-10.3) mg/dl Total Bilirubin 1.6 H (0.2-1.0) mg/dl Alkaline Phosphatase 112 H (34-104) U/L Troponin I High Sens 1027.6 H* (0-20) pg/ml B-Natriuretic Peptide 785 H (0-100) pg/ml 08/27/23 Range/Units 17:52 WBC (4.8-10.8) K/ul RBC (4.70-6.10) M/uL Hgb (14.0-18.0) g/dl Hct (42.0-52.0) % MCHC (32.0-36.0) g/dL RDW Std Deviation (36.4-46.3) fL RDW Coeff of Geremias (11.5-14.5) % Lymph # (Auto) (1.20-3.40) K/uL Rains # (Auto) (0.11-0.59) K/uL PT (9.0-12.0) Seconds INR (0.9-1.1) VBG pH (7.36-7.41) VBG pCO2 (38-50) mmHg Chloride (98-107) mmol/L BUN (6-23) mg/dl Creatinine (0.6-1.4) mg/dl BUN/Creatinine Ratio (10-20) Calcium (8.6-10.3) mg/dl Total Bilirubin (0.2-1.0) mg/dl Alkaline Phosphatase (34-104) U/L Troponin I High Sens 954.5 H* (0-20) pg/ml B-Natriuretic Peptide (0-100) pg/ml Diagnostic Findings Chest X-Ray 08/27/23 14:39 XR chest 1V portable HISTORY: Dyspnea COMPARISON: Chest 01/21/2023. FINDINGS: The heart is enlarged with progressive interstitial/vascular thickening and hazy airspace opacities. This is consistent with moderate pul monary edema. No pneumothorax. Low lung volumes. No pleural effusions. There are poststernotomy changes. No acute fractures. IMPRESSION: Cardiomegaly with progressive interstitial/vascular thickening consistent with moderate pulmonary edema. ACT 112: Negative or not required by law. Electronically signed by: Norberto Chan M.D. 08/27/2023 3:11 PM Chest CTA 08/27/23 17:54 CT ANGIOGRAM OF THE CHEST CLINICAL HISTORY: Dyspnea. COMPARISON STUDY: Chest x-ray dated 08/27/2023. Chest CT dated 10/21/2021. TECHNIQUE: Following the IV administration of 114 cc of Optiray 320, CT angiogram of the chest was performed from the upper abdomen to the thoracic inlet utilizing the pulmonary embolus protocol. Images are reviewed in the axial, sagittal, and coronal planes. 3-D MIPS images are created and assessed. IV contrast was administered without complication. A dose lowering technique was utilized adhering to the principles of ALARA. CT DOSE: 804.11 mGy.cm FINDINGS: Thyroid: Imaged portions of the thyroid gland are normal in size and attenuation. Thoracic aorta: There is atherosclerotic calcification of the thoracic aorta, which is normal in caliber and demonstrates standard 3-vessel arch anatomy. No dissection is seen. Pulmonary vasculature: The pulmonary trunk is normal in caliber. There are no filling defects identified in main, lobar, or segmental pulmonary branches to suggest pulmonary embolus. Heart: The patient is status post midline sternotomy. The heart is enlarged and without pericardial effusion. The coronary arteries are densely calcified. Lungs and pleural spaces: Evaluation of the lung parenchyma is degraded by motion artifact. Emphysema and chronic interstitial thickening is similar to previous. There are small pleural effusions with dependent consolidation. Intralobular septal thickening is noted with associated peribronchial and interstitial thickening with patchy groundglass opacity. There are scattered calcified granulomas. The trachea and central airways are clear. Low suspicion foci of pleural-based nodularity are again seen along an accessory fissure in the right upper lobe. Mediastinum: There are mild enlargement of central lymph nodes. A right paratracheal node on image #147 measures 13 mm short axis and a high right paratracheal node on image #166 measures 14 mm in short axis. Vicki: Mildly enlarged hilar lymph nodes measure up to 15 mm in short axis. Axillae: There is no axillary lymphadenopathy. Upper abdomen: A small hiatal hernia. The gallbladder is distended but otherwise normal as imaged. Skeletal structures: The skeletal structures are osteopenic. Degenerative change is noted in the shoulders and thoracic spine. No lytic or blastic bony lesions are seen. IMPRESSION: 1. There is no evidence of pulmonary embolus in the main, lobar, or segmental pulmonary arteries. 2. Cardiomegaly and emphysema with evidence of congestive failure and mild pulmonary edema. Radiographic follow-up to resolution is recommended. 3. Small pleural effusions with dependent consolidation. 4. The gallbladder is distended but otherwise normal as imaged. If there is clinical concern for gallbladder disease then a right upper quadrant ultrasound should be obtained. 5. Mildly enlarged mediastinal and hilar lymph nodes are nonspecific and similar to the 10/21/2021 examination. Correlate clinically and follow-up if warranted. 6. Additional findings as above. ACT 112: Negative or not required by law. Electronically signed by: Fei Dolan M.D. 08/27/2023 6:55 PM Medications Administered Discontinued Medications Aspirin (Aspirin Chew 324 Mg) 324 mg PO NOW STA Stop: 08/27/23 16:49 Last Admin: 08/27/23 16:56 Dose: 324 mg Documented By: ALDO Furosemide (Furosemide 40 Mg/4 Ml Vial) 40 mg IV ONE ONE Stop: 08/27/23 15:37 Last Admin: 08/27/23 15:48 Dose: 40 mg Documented By: ALDO Ioversol (Optiray 320 125ml) 114 ml IV ONCE ONE Stop: 08/27/23 18:33 Last Admin: 08/27/23 18:32 Dose: 114 ml Documented By: RIAN Ondansetron HCl (Ondansetron Inj 2 Mg/Ml 2 Ml Vial) Confirm Administered Dose 4 mg .ROUTE .STK-MED ONE Stop: 08/27/23 15:54 Last Admin: 08/27/23 15:57 Dose: 4 mg Documented By: ALDO Ondansetron HCl (Ondansetron Inj 2 Mg/Ml 2 Ml Vial) 4 mg IV NOW STA Stop: 08/27/23 15:56 Last Admin: 08/27/23 15:59 Dose: Not Given Documented By: ALDO ECG Additional Comments: Normal sinus rhythm Left axis deviation Abnormal ECG When compared with ECG of 22-JAN-2023 05:01, RI interval has decreased QRS duration has decreased Confirmed by Jesse Flores ([id number]) on 08/27/2023 3:41:17 PM Coding Level of Care Code 06344 CRITICAL CARE 1ST 30-74M Diagnoses COPD (chronic obstructive pulmonary disease) J44.9 HLD (hyperlipidemia) E78.5 Diabetes mellitus, type II E11.9 Diabetes mellitus complication status: without complication Diabetes mellitus care home insulin use: 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
[2023-08-27 20:01] LABS: Base Excess ABG -2.5 mEq/L (-9-1.8); HCO3 ABG 22 mmol/L (19-24); PCO2 ABG 35 mmHg (35-46); PO2 ABG 69 mmHg (80-95)
--- NOTE | 2023-08-27 20:19 | History & Physical Report ---
Date of Service August 27, 2023 Assessment & Plan (1) Acute hypoxic respiratory failure: (2) Acute exacerbation of CHF (congestive heart failure): (3) CAD (coronary artery disease): (4) Elevated troponin: Plan: Admit to telemetry Patient presenting from home with reports of shortness of breath. History of extensive CAD s/p CABG and multiple interventions, HFpEF managed with Lasix. In the ED, requiring 40L Hi Flow to maintain saturations CXR shows pulmonary edema, proBNP 785 Initial HS trop 1027 -> 954 Episode of chest pain last evening relieved with SL nitro x [address] changes Case discussed with cardiology Dr. 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 Will hold Coumadin and start heparin infusion Change Hi Harjinder to BiPap S/p Lasix 40 mg IV in the ED, will hold on additional diuresis at this time and reevaluate volume status in the morning Resting echo Continue ASA and statin Due to borderline low BPs, will hold isosorbide, continue metoprolol with holding parameters in place (5) Atrial flutter: Plan: Rate controlled on metoprolol Holding Coumadin and placing on heparin as above (6) Diabetes mellitus, type II: Plan: Hgb A1c 7.0 03/2023 Hold home regimen of Novolin and and Novolin R and utilize Lantus and NovoLog per protocol while hospitalized Glycemic pharmacy consult (7) COPD (chronic obstructive pulmonary disease): Plan: Chronically on 3 L of oxygen No wheezing noted on exam Continue home inhalers (8) VENICE (obstructive sleep apnea): Plan: BiPAP as above DVT PROPHYLAXIS On IV heparin Patient seen in collaboration with Dr. Talbert. I spent a total of 75 minutes coordinating, documenting, and providing care for this patient excluding time spent in the performance of separately billed services. This included personally reviewing all current laboratories and imaging studies, medication reconciliation, outpatient chart review, and discussion with specialists. History of Present Illness Chief Complaint: Shortness of breath Primary Care Provider: Zachariah Duarte DO 77-year-old male with PMH COPD, chronic hypoxic respiratory failure on 3 L of oxygen, VENICE on CPAP, extensive CAD s/p multiple stents and CABG, atrial flutter anticoagulated on Coumadin, PAD, diastolic CHF, HTN, GERD, history of TIA, and other problems listed below who presents to the ED for evaluation of shortness of breath. History is obtained from the patient and who is the bedside as well as review of outpatient PCP and cardiology records. Patient reports worsening shortness of breath over the past couple days. Reports last evening while laying in bed, he had sudden onset of chest pain for which she took 2 sublingual nitroglycerin and had resolution. Patient does not remember the last time he used nitroglycerin. Today, patient reports acute worsening of shortness of breath. Reports shortness of breath at rest as well as with minimal exertion. Today he developed a mild, dry, nonproductive cough. Denies fevers and chills. No lightheadedness, dizziness, diaphoresis, syncopal events. While in the ED, patient reports 4 episodes of vomiting. No abdominal pain, hematemesis, diarrhea, bright red bleeding per rectum, dark tarry stools. In the ED, patient was placed on high flow nasal cannula 40 L to maintain saturations. CXR shows signs of pulmonary edema. Initial HS troponin 1027, proBNP 785. EKG without acute ST changes. CTA chest negative for pulmonary embolism. Patient was given full dose aspirin, Lasix 40 mg IV, IV Zofran. Allergies Allergy/AdvReac Type Severity Reaction Status Date / Time fentanyl AdvReac Intermediate vomiting Verified 08/27/23 16:07 oxycodone AdvReac Intermediate vomiting Verified 08/27/23 16:07 propoxyphene AdvReac Intermediate Nausea - Verified 08/27/23 16:07 Darvocet Home Medications Medication Instructions Recorded Confirmed Type nitroglycerin 0.4 mg sublingual 0.4 mg sublingual UD PRN Chest Pain 03/01/19 08/27/23 History tablet (Nitrostat) acetaminophen 500 mg tablet 1,000 mg (2 x 500 mg) PO BID #60 01/27/23 08/27/23 Rx (Tylenol Extra Strength) tabs atorvastatin 80 mg tablet 80 mg PO HS #30 tabs 01/27/23 08/27/23 Rx furosemide 20 mg tablet 20 mg PO QAM #30 tabs 01/27/23 08/27/23 Rx insulin regular human 100 unit/mL 15 unit (0.15 mL) subcut TIDM #10 01/27/23 08/27/23 Rx injection solution (Novolin R mL Regular U-100 Insulin) isosorbide mononitrate 60 mg 60 mg PO BID #60 tabs 01/27/23 08/27/23 Rx tablet,extended release 24 hr magnesium oxide 400 mg PO HS #30 tabs 01/27/23 08/27/23 Rx memantine 5 mg tablet 5 mg PO BID #60 tabs 01/27/23 08/27/23 Rx metoprolol tartrate 100 mg tablet 100 mg PO BID #60 tabs 01/27/23 08/27/23 Rx ondansetron HCl 4 mg tablet 4 mg PO Q6H PRN NAUSEA/VOMITING 01/27/23 08/27/23 Rx #30 tabs pantoprazole 40 mg tablet,delayed 40 mg PO QAM #30 tabs 01/27/23 08/27/23 Rx release ranolazine 500 mg tablet,extended 500 mg PO Q12H #60 tabs 01/27/23 08/27/23 Rx release,12 hr trazodone 100 mg tablet 100 mg PO HS PRN Sleep #30 tabs 01/27/23 08/27/23 Rx umeclidinium 62.5 mcg/actuation 1 inh inhalation DAILY #30 ea 01/27/23 08/27/23 Rx blister powder for inhalation cholecalciferol (vitamin D3) 25 25 mcg PO DAILY 08/27/23 08/27/23 History mcg (1,000 unit) tablet insulin NPH isoph U-100 human 100 26 unit subcut HS 08/27/23 08/27/23 History unit/mL subcutaneous suspension (Novolin N NPH U-100 Insulin isophane) insulin NPH isoph U-100 human 100 36 unit subcut QDL 08/27/23 08/27/23 History unit/mL subcutaneous suspension (Novolin N NPH U-100 Insulin isophane) vitamin E 1,000 unit tablet 1 tab PO DAILY 08/27/23 08/27/23 History warfarin 5 mg tablet 2.5 mg PO QPM 08/27/23 08/27/23 History Past Med/Surg History Medical History (Updated 08/27/23 @ 20:30 by ZEYAD De Anda) Closed T12 fracture Atrial flutter Tobacco use Angina pectoris AAA (abdominal aortic aneurysm) PAD (peripheral artery disease) S/P angioplasty of left external iliac and right common iliac stenosis 07/2010; Dr. Brendon Royal at [facility] Chronic back pain VENICE (obstructive sleep apnea) CAD (coronary artery disease) s/p angioplasty RCA in 1988, s/p CABG x 3 in 1997; NSTEMI demand ischemia after spinal surgery in 2012; S/P DWAYNE and angioplasty left circumflex in 2017 HTN (hypertension) GERD (gastroesophageal reflux disease) COPD (chronic obstructive pulmonary disease) HLD (hyperlipidemia) Diabetes mellitus, type II Diabetes Surgical History History of cataract surgery History of cardiac cath H/O angioplasty S/P triple vessel bypass Family History Other Diabetes Heart disease Stroke Social History Smoking Status: Never smoker Tobacco Type: Cigarettes Cigarettes Per Day: 2 per week; Second Hand Exposure: No; Do You Dip or Chew Tobacco: No; Hx Alcohol Use: No Hx Substance Use: Yes Substance Use Type Other:: Medical marijuana/RSO Gummies Preferred Language: Belarusian Communication Ability: Effective Manager Floral Required: No Beliefs That Will Affect Care: None marital status: Current Living Situation: Spouse Current Living Situation Comment: ranch home How many Children do You have: 3 Feels Safe at Home: Yes Assistive Devices: CPAP, Oxygen - at Night and Walker Physical Exam Constitutional: WD/WN, vitals as above + ill appearing; no acute distress Eyes: PERRL, conjunctivae normal, anicteric sclerae ENMT: external ear and nose normal, oropharynx normal Respiratory: + tachypneic; no respiratory distress Auscultation: + diminished lung sounds Cardiovascular: Rate/Rhythm: regular rate and regular rhythm Vessels: normal peripheral pulses Extremities: + edema (trace edema) Gastrointestinal (Abdomen): normal bowel sounds, soft, nontender, no hepatosplenomegaly Musculoskeletal: no cyanosis or clubbing, extremities motor strength 5/5 Skin: no rashes, warm and dry Neurologic: PERRL, EOMI, accommodation nl, no face palsy, no dysarthria Psychiatric: A+Ox3, euthymic affect Results & Data Results & Data Vital Signs (Past 12 Hours) Vital Signs Temp Pulse Pulse Resp BP BP Pulse Ox 08/27/23 18:43 81 22 95/46 L 93 08/27/23 18:41 82 08/27/23 18:00 81 23 99/47 L 97 08/27/23 17:51 85 92/44 L 08/27/23 17:45 85 77/46 L 08/27/23 17:05 85 35 H 103/55 L 93 08/27/23 16:00 95 H 27 H 113/53 L 95 08/27/23 15:57 93 H 26 H 94 08/27/23 15:01 78 30 H 90 08/27/23 15:00 79 30 H 99/60 L 90 08/27/23 14:32 77 08/27/23 14:30 36.5 C 77 28 H 139/61 98 08/27/23 14:30 O2 Del Method O2 Flow Rate FiO2 08/27/23 18:43 High Flow Nasal Cannula 40 08/27/23 18:41 08/27/23 18:00 High Flow Nasal Cannula 40 08/27/23 17:51 08/27/23 17:45 08/27/23 17:05 High Flow Nasal Cannula 40 08/27/23 16:00 High Flow Nasal Cannula 40 08/27/23 15:57 High Flow Nasal Cannula 40 60 08/27/23 15:01 High Flow Nasal Cannula 35 35 08/27/23 15:00 High Flow Nasal Cannula 35 08/27/23 14:32 08/27/23 14:30 Non-rebreather 10 08/27/23 14:30 Non-rebreather 10 Laboratory Results Short CBC 08/27/23 Range/Units 14:42 WBC 2.00 L (4.8-10.8) K/ul Hgb 10.5 L (14.0-18.0) g/dl Hct 35.9 L (42.0-52.0) % Plt Count 160 (130-400) K/uL BMP 08/27/23 08/27/23 14:42 15:55 Sodium Cancelled 142 Potassium Cancelled 3.9 Chloride Cancelled 109 H Carbon Dioxide Cancelled 24 BUN Cancelled 33 H Creatinine Cancelled 1.57 H Glucose Cancelled 94 Calcium Cancelled 8.0 L Liver Function 08/27/23 08/27/23 Range/Units 14:42 15:55 Total Bilirubin Cancelled 1.6 H AST Cancelled 19 ALT Cancelled 11 Alkaline Phosphatase Cancelled 112 H Albumin Cancelled 3.7 Diagnostic Findings Chest X-Ray 08/27/23 14:39 XR chest 1V portable HISTORY: Dyspnea COMPARISON: Chest 01/21/2023. FINDINGS: The heart is enlarged with progressive interstitial/vascular thickening and hazy airspace opacities. This is consistent with moderate pulmonary edema. No pneumothorax. Low lung volumes. No pleural effusions. There are poststernotomy changes. No acute fractures. IMPRESSION: Cardiomegaly with progressive interstitial/vascular thickening consistent with moderate pulmonary edema. ACT 112: Negative or not required by law. Electronically signed by: Norberto Chan M.D. 08/27/2023 3:11 PM Chest CTA 08/27/23 17:54 CT ANGIOGRAM OF THE CHEST CLINICAL HISTORY: Dyspnea. COMPARISON STUDY: Chest x-ray dated 08/27/2023. Chest CT dated 10/21/2021. TECHNIQUE: Following the IV administration of 114 cc of Optiray 320, CT angiogram of the chest was performed from the upper abdomen to the thoracic inlet utilizing the pulmonary embolus protocol. Images are reviewed in the axial, sagittal, and coronal planes. 3-D MIPS images are created and assessed. IV contrast was administered without complication. A dose lowering technique was utilized adhering to the principles of ALARA. CT DOSE: 804.11 mGy.cm FINDINGS: Thyroid: Imaged portions of the thyroid gland are normal in size and attenuation. Thoracic aorta: There is atherosclerotic calcification of the thoracic aorta, which is normal in caliber and demonstrates standard 3-vessel arch anatomy. No dissection is seen. Pulmonary vasculature: The pulmonary trunk is normal in caliber. There are no filling defects identified in main, lobar, or segmental pulmonary branches to suggest pulmonary embolus. Heart: The patient is status post midline sternotomy. The heart is enlarged and without pericardial effusion. The coronary arteries are densely calcified. Lungs and pleural spaces: Evaluation of the lung parenchyma is degraded by motion artifact. Emphysema and chronic interstitial thickening is similar to previous. There are small pleural effusions with dependent consolidation. Intralobular septal thickening is noted with associated peribronchial and interstitial thickening with patchy groundglass opacity. There are scattered calcified granulomas. The trachea and central airways are clear. Low suspicion foci of pleural-based nodularity are again seen along an accessory fissure in the right upper lobe. Mediastinum: There are mild enlargement of central lymph nodes. A right paratracheal node on image #147 measures 13 mm short axis and a high right paratracheal node on image #166 measures 14 mm in short axis. Vicki: Mildly enlarged hilar lymph nodes measure up to 15 mm in short axis. Axillae: There is no axillary lymphadenopathy. Upper abdomen: A small hiatal hernia. The gallbladder is distended but otherwise normal as imaged. Skeletal structures: The skeletal structures are osteopenic. Degenerative change is noted in the shoulders and thoracic spine. No lytic or blastic bony lesions are seen. IMPRESSION: 1. There is no evidence of pulmonary embolus in the main, lobar, or segmental pulmonary arteries. 2. Cardiomegaly and emphysema with evidence of congestive failure and mild pulmonary edema. Radiographic follow-up to resolution is recommended. 3. Small pleural effusions with dependent consolidation. 4. The gallbladder is distended but otherwise normal as imaged. If there is clinical concern for gallbladder disease then a right upper quadrant ultrasound should be obtained. 5. Mildly enlarged mediastinal and hilar lymph nodes are nonspecific and similar to the 10/21/2021 examination. Correlate clinically and follow-up if warranted. 6. Additional findings as above. ACT 112: Negative or not required by law. Electronically signed by: Fei Dolan M.D. 08/27/2023 6:55 PM Code Status & VTE Plan VTE Prophylaxis Plan VTE Prophylaxis will be ordered: No Supervising Physician Co-Signing Physician Notes I have seen and examined the patient and have discussed the case with the provider above. I agree with the assessment and plan as stated. 77-year-old man with history of chronic hypoxic respiratory failure secondary to COPD also with VENICE on CPAP and extensive CAD status post multiple stents and CABG in the past presents with shortness of breath. reports that he has been short of breath for the last 3 to 4 days. He has had a cough today that is not productive. Denies fevers or chills. Reported chest pain last evening but not present now. Has a significant history of vascular disease. He is on Coumadin for atrial flutter. He arrived hypotensive which spontaneously improved. He was given Lasix 40 mg IV and had an episode of incontinence. He declined a Mar catheter but was fine with a condom catheter. He has evidence of leukopenia with a white blood cell count of 2. H&H is slightly low at 10.5/36. Around 2 PM this afternoon he had a VBG drawn which showed a respiratory acidosis. He was placed on high flow nasal cannula with improvement. Repeat ABG at 7:30p reveals this acidosis has resolved. His creatinine is slightly bumped up to 1.6 from 1.3 baseline. Total bilirubin is mildly elevated to 1.6. Troponin is elevated at 1023 with repeat of 955. EKG reviewed with lots of artifact and no clear ST changes that would be consistent with acute ischemia. BNP is elevated at 785 and chest x-ray with evidence of mild pulmonary edema. Lungs are clear to auscultation throughout on exam. Patient is laying supine and is speaking in full complete sentences. He reports feeling more comfortable lying supine without any elevation in his head. Bio fire nasopharyngeal test was negative. Given history of CAD and PAD, elevated troponin and recent chest pain is concerning for possible developing ACS. Continue trending troponin overnight consult cardiology and start heparin holding Coumadin. Continue metoprolol but hold Imdur in the setting of hypotension. Continue atorvastatin. Diabetes appears well-controlled with last A1c of 6.6 in January. Repeat A1c in AM. Given his elevated BNP, nonproductive cough and evidence of pulmonary edema on chest x-ray, acute heart failure is also in the differential. He received Lasix 40 mg IV once tonight. He does not appear overtly fluid overloaded however. He has no peripheral edema and feels comfortable lying flat and speaking in full sentences. Would not be aggressive with Lasix given hypotension. Reassess in a.m. before additional dosing. His COPD may be also playing a role given he has VENICE and had evidence of a respiratory acidosis on initial blood gas. There is no overt wheezing however. I see no reason to add antibiotics or steroids at this time. Will continue to monitor. If no respiratory improvement with diuresis, would consider consulting pulmonology. Monitor in PCU. 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
[2023-08-27 20:22] LABS: Allen Test Pos (Pos)
[2023-08-27] MEDS ORDERED: GLUCAGON FOR INJ 1 MG VIAL SQ PRN (20:53)
[2023-08-27] MEDS ORDERED: GLUCOSE 10 TAB/TUBE PO PRN (20:53)
[2023-08-27] MEDS ORDERED: CARBOHYDRATES FOR HYPOGLYCEMIA PO PRN (20:53)
[2023-08-27] MEDS ORDERED: PHARMACY GLYCEMIC MGMT CONSULT PRN (20:53)
[2023-08-27] MEDS ORDERED: ACETAMINOPHEN 325 MG TAB PO PRN (20:53)
[2023-08-27] MEDS ORDERED: GLUCOSE 40% GEL 15 GM TUBE PO PRN (20:53)
[2023-08-27] MEDS ORDERED: DEXTROSE 50% 50 ML SYRINGE IV PRN (20:53)
[2023-08-27] MEDS ORDERED: ONDANSETRON INJ 2 MG/ML 2 ML VIAL IV PRN (20:55)
[2023-08-27] MEDS ORDERED: MAGNESIUM OXIDE 400 MG TAB PO SCH (21:00)
[2023-08-27] MEDS ORDERED: MEMANTINE HCL 5 MG TAB PO SCH (21:00)
[2023-08-27] MEDS ORDERED: ISOSORBIDE MONO EXTENDED REL 60 MG TABCR PO SCH (21:00)
[2023-08-27] MEDS ORDERED: METOPROLOL TARTRATE 100 MG TAB PO SCH (21:00)
[2023-08-27] MEDS ORDERED: RANOLAZINE 500 MG ER TAB PO SCH (21:00)
[2023-08-27] MEDS ORDERED: ATORVASTATIN 40 MG TAB PO SCH (21:00)
[2023-08-27] MEDS ORDERED: INSULIN ASPART PER UNIT CHARGE SC SCH (21:00)
--- NOTE | 2023-08-27 22:01 | Communication Note ---
Date of Service: August 27, 2023 Patient persistently hypotensive with systolic blood pressures in the 70s-80s. Patient re-evaluated at the bedside. Patient initially found to be hypoxic however nasal canula off. Hi Harjinder nasal canula reapplied, 40L 50%. O2 sat 93%. BP 87/53 MAP 53 Patient mentating but appears weak. Denies chest pain and shortness of breath. Case rediscussed with ICU ZEYAD Herman and cardiology Dr. Joseph updated on events. Will obtain blood cultures, lactate, and procalcitonin. Transfer to ICU. Total critical care time spent 30 minutes including reevaluation of patient at the bedside, discussion with nursing and providers, and placing ICU transfer orders. ZEYAD De Anda
[2023-08-27] MEDS ORDERED: ALBUTEROL HFA 8 GM INHALER INH PRN (23:39)
[2023-08-27] MEDS ORDERED: ALBUTEROL 0.083% NEBU SOLN 3 ML VIAL NEB PRN (23:39)
[2023-08-27] MEDS ORDERED: CALCIUM GLUCONATE IV ONE (23:42)
[2023-08-27] MEDS ORDERED: MINI B IV ONE (23:42)
[2023-08-27] MEDS ORDERED: SODIUM CHLOR 0.9% IV ONE (23:42)
[2023-08-27] MEDS ORDERED: STAT IV/IM STA (23:42)
[2023-08-27] MEDS ORDERED: PIPER/TAZO 4.5g in D5W MINI-B 100 ML IV STA (23:48)
[2023-08-27] MEDS ORDERED: CALCIUM GLUCONATE 10% 2,000 MG in 0.9 % SODIUM CHLORIDE 100 ML IV STA (23:50)
[2023-08-28] MEDS ORDERED: DAPTOmycin 450 MG in SYRINGE 0 ML IV SCH
[2023-08-28] MEDS ORDERED: RAPID SEQUENCE INDUCTION BAG ONE (01:37)
[2023-08-28] MEDS ORDERED: PROPOFOL IV EMULSION 10 MG/ML 100 ML VIAL IV ONE (01:48)
[2023-08-28] MEDS ORDERED: PHENYLEPHRINE HCL 25 MG/250 ML NSS IV ONE (01:53)
[2023-08-28] MEDS ORDERED: INSULIN ASPART PER UNIT CHARGE SC ONE (02:00)
[2023-08-28 02:12] LABS: iSTAT Allen Test Pass; iSTAT Art Bld Gas pCO2 Correct 39 mmHg (35-46); iSTAT Art Bld Gas pH Corrected 7.233 (7.35-7.45); iSTAT Arterial Blood Gas HCO3 17 meg/L (19-24); iSTAT Arterial Blood Gas pCO2 40 mmHg (35-46); iSTAT Arterial Blood Gas pH 7.23 (7.35-7.45); iSTAT Arterial Blood Gas pO2 52 mmHg (80-95); iSTAT Arterial Blood Gas pO2 C 50; iSTAT Carbon Dioxide 18 mmol/L (24-31); iSTAT FiO2 50 %; iSTAT Hematocrit 24 % (42-52); iSTAT Hemoglobin 8.2 g/dl (14.0-18.0); iSTAT Site L Radial; iSTAT Sodium 140 mmol/L (135-144)
[2023-08-28] MEDS ORDERED: SODIUM BICARB 8.4% INJ 50 MEQ/50 ML SYR IV ONE ×2 (02:33→05:53)
--- NOTE | 2023-08-28 03:01 | Procedure Note ---
Procedure Note Date of Service August 28, 2023 Note INTUBATION PROCEDURE NOTE: Proceduralist: Tomas JEFFERS ([facility] EMD Attending: DR. Krueger Attending: Dr. Quinn Patient was evaluated and required intubation for Cardiac Arrest. Sedative agent used: Versed 5mg Paralysis agent used: Rocuronium 60mg Procedure was Emergent as patient suffered cardiac arrest. The patient was prepared in the appropriate fashion. Sedation was achieved utilizing Versed and Rocuronium, per Dr. Krueger's administration. The patient was easily ventilated using [id number] to achieve adequate oxygenation. A 7.5 Nepali endotracheal tube was placed under 23 to cm at the lip. The stylette was removed and balloon was inflated with 10mL of air. Appropriate Colorimetric change was appreciated. Bilateral breath sounds were heard without air sounds in the abdomen. Dr. Krueger was present for the entire procedure. x Post Intubation Chest X-ray confirms placement without pneumothorax. ETT backed out 1 cm Patient tolerated the procedure well and there were no immediate complications noted Coding CPT Codes Resuscitation - Resuscitation: 52973 Endotracheal Intubation, emergency ([id number]) [facility] [place] [facility] [place] Procedure Codes (Charges) Resuscitation Resuscitation: [id number] Endotracheal Intubation, emergency
--- NOTE | 2023-08-28 03:02 | Cardiology Consultation ---
Date of Consultation August 28, 2023 Assessment & Plan (1) Non-ST elevation VA (NSTEMI): (2) Cardiac arrest: Plan Dr Patel alerted me of the patient's change in status at 1:57 am with EKG then revealing atrial flutter at 143 bpm with left bundle branch block and associated repolarization changes. Patient had previously been observed to have an intermitted left bundle branch block in January. I arrived at just after 2:15 am at which point the patient had already become pulseless 4 times and was intubated and was on epinephrine and phenylephrine infusions. An effort was made for direct current cardioversion, however tachycardia returned followed by more episodes of asystole requiring multiple additional doses of epinephrine in addition to the infusion. Patient had an intermittent pulse but then multiple recurrences of asystole and pulseless electrical activity. Bedside ultrasound revealed progressively worse cardiac function and development of agonal mechanical activity. The cardiac catheterization laboratory was activated however the patient's pulselessness b ecame refractory to intervention and efforts were suspended after over 90 minutes of CPR before patient could be transferred to the cardiac catheterization laboratory. Dr Patel had updated the patient's spouse about his change in condition and he a few minutes before her arrival. I spoke to her and provided a summery of events before taking her to his bedside. History of Present Illness Attending Physician: Dori Talbert DO History of Present Illness Mr Oakley is a 77 year old male seen in cardiology consultation in the Intensive Care Unit. Patient known to the undersigned from previous admission in June, and I have cared for the patient's spouse, Sammi, as her outpatient psychologist counseling for several years. Mr Oakley has a longstanding history of complex vascular disease. His initial coronary intervention had been in 1988 with CABG for severe 3 vessel [place] coronary heart disease in 1997, complex percutaneous coronary intervention to the circumflex in 2017 . In 2019, he underwent complex intervention to the saphenous vein graft supplying the distal right coronary artery. The distal circumflex and right coronary arteries were notably diffusely diseased at that time with patent PFEIFFER graft. Mr Oakley presented to the emergency department the afternoon of 08/27/23 with several days of worsening shortness of breath. The evening prior to arrival he had sudden onset of chest discomfort for which he took two doses of sublingual nitroglycerin with resolution of the chest pain. Through 08/27/23 he developed worsening shortness of breath. Initial EKG revealed sinus rhythm at [address] T wave abnormality, relatively unchanged compared to prior in January,. Chest X ray and CTA chest were compatible with pulmonary edema and initial HS troponin was elevated at 1,027 pg/ml. I initially spoke to the admitting team at 6:45 pm and recommended admission , holding Coumadin and transition to heparin infusion with INR of 1.9 and agreed with treatment with furosemide as had already been initiated. Patient initially admitted to the Progressive Care Unit , but transferred to the ICU for worsening hypotension. At just after 1:30 am patient developed bradycardia and became pulseless. A Code Blue alert was called and resuscitative efforts were initialed per ACLS protocol for findings of pulseless bradycardia and then pulseless electrical activity. Allergies Allergy/AdvReac Type Severity Reaction Status Date / Time fentanyl AdvReac Intermediate vomiting Verified 08/27/23 16:07 oxycodone AdvReac Intermediate vomiting Verified 08/27/23 16:07 propoxyphene AdvReac Intermediate Nausea - Verified 08/27/23 16:07 Darvocet Home Medications Medication Instructions Recorded Confirmed Type nitroglycerin 0.4 mg sublingual 0.4 mg sublingual UD PRN Chest Pain 03/01/19 08/27/23 History tablet (Nitrostat) acetaminophen 500 mg tablet 1,000 mg (2 x 500 mg) PO BID #60 01/27/23 08/27/23 Rx (Tylenol Extra Strength) tabs atorvastatin 80 mg tablet 80 mg PO HS #30 tabs 01/27/23 08/27/23 Rx furosemide 20 mg tablet 20 mg PO QAM #30 tabs 01/27/23 08/27/23 Rx insulin regular human 100 unit/mL 15 unit (0.15 mL) subcut TIDM #10 01/27/23 08/27/23 Rx injection solution (Novolin R mL Regular U-100 Insulin) isosorbide mononitrate 60 mg 60 mg PO BID #60 tabs 01/27/23 08/27/23 Rx tablet,extended release 24 hr magnesium oxide 400 mg PO HS #30 tabs 01/27/23 08/27/23 Rx memantine 5 mg tablet 5 mg PO BID #60 tabs 01/27/23 08/27/23 Rx metoprolol tartrate 100 mg tablet 100 mg PO BID #60 tabs 01/27/23 08/27/23 Rx ondansetron HCl 4 mg tablet 4 mg PO Q6H PRN NAUSEA/VOMITING 01/27/23 08/27/23 Rx #30 tabs pantoprazole 40 mg tablet,delayed 40 mg PO QAM #30 tabs 01/27/23 08/27/23 Rx release ranolazine 500 mg tablet,extended 500 mg PO Q12H #60 tabs 01/27/23 08/27/23 Rx release,12 hr trazodone 100 mg tablet 100 mg PO HS PRN Sleep #30 tabs 01/27/23 08/27/23 Rx umeclidinium 62.5 mcg/actuation 1 inh inhalation DAILY #30 ea 01/27/23 08/27/23 Rx blister powder for inhalation cholecalciferol (vitamin D3) 25 25 mcg PO DAILY 08/27/23 08/27/23 History mcg (1,000 unit) tablet insulin NPH isoph U-100 human 100 26 unit subcut HS 08/27/23 08/27/23 History unit/mL subcutaneous suspension (Novolin N NPH U-100 Insulin isophane) insulin NPH isoph U-100 human 100 36 unit subcut QDL 08/27/23 08/27/23 History unit/mL subcutaneous suspension (Novolin N NPH U-100 Insulin isophane) vitamin E 1,000 unit tablet 1 tab PO DAILY 08/27/23 08/27/23 History warfarin 5 mg tablet 2.5 mg PO QPM 08/27/23 08/27/23 History Patient History Medical History Closed T12 fracture Atrial flutter Tobacco use Angina pectoris AAA (abdominal aortic aneurysm) PAD (peripheral artery disease) S/P angioplasty of left external iliac and right common iliac stenosis 07/2010; Dr. Brendon Royal [place] [facility] [place] Chronic back pain VENICE (obstructive sleep apnea) CAD (coronary artery disease) s/p angioplasty RCA in 1988, s/p CABG x 3 in 1997; NSTEMI demand ischemia after spinal surgery in 2012; S/P DWAYNE and angioplasty left circumflex in 2016 HTN (hypertension) GERD (gastroesophageal reflux disease) COPD (chronic obstructive pulmonary disease) HLD (hyperlipidemia) Diabetes mellitus, type II Diabetes Surgical History History of cataract surgery History of cardiac cath H/O angioplasty S/P triple vessel bypass Family History Other Diabetes Heart disease Stroke Social History Smoking Status: Never smoker Tobacco Type: Cigarettes Cigarettes Per Day: 2 per week; Second Hand Exposure: No; Do You Dip or Chew Tobacco: No; Hx Alcohol Use: No Hx Substance Use: Yes Substance Use Type Other:: Medical marijuana/RSO Gummies Preferred Language: Persian Communication Ability: Effective Live In Companion Required: No Beliefs That Will Affect Care: None marital status: Current Living Situation: Spouse Current Living Situation Comment: ranch home How many Children do You have: 3 Feels Safe at Home: Yes Assistive Devices: CPAP, Oxygen - at Night and Walker Review of Systems Review of Systems: Unobtainable due to reduced consciousness Physical Exam Physical Exam: Unresponsive Endotracheal tube in place Intermitted pulse detected on bedside Doppler of the right femoral artery before patient . Results & Data Vital Signs (Past 12 Hours) Vital Signs Pulse Pulse Resp BP BP Pulse Ox O2 Del Method 08/28/23 01:51 68/50 L 08/28/23 01:51 142 H 24 99 08/28/23 01:50 143 H 24 96 08/28/23 01:45 114/67 08/28/23 01:45 150 H 87 L 08/28/23 01:42 150 H 94 08/28/23 01:42 186/74 H 08/28/23 01:40 155 H 79 L 08/28/23 01:39 155 H 67 L 08/28/23 01:39 211/96 H 08/28/23 01:31 68 27 H 08/28/23 01:31 64/35 L 08/28/23 01:30 71 31 H 08/28/23 01:23 94 H 32 H 08/28/23 01:23 126/44 L 08/28/23 01:20 90 27 H 08/28/23 01:17 84 29 H 08/28/23 01:10 75 28 H 92 08/28/23 01:01 99/53 L 08/28/23 01:01 74 26 H 92 08/28/23 01:00 74 30 H 93 08/28/23 00:50 73 18 92 08/28/23 00:46 73 31 H 94 08/28/23 00:46 111/43 L 08/28/23 00:40 73 28 H 94 08/28/23 00:30 108/44 L 08/28/23 00:30 72 30 H 89 L 08/28/23 00:20 72 29 H 91 08/28/23 00:16 74 32 H 91 08/28/23 00:16 114/45 L 08/28/23 00:15 73 24 92 08/28/23 00:10 73 33 H 90 08/28/23 00:01 118/52 L 08/28/23 00:01 75 29 H 90 08/28/23 00:00 75 20 91 08/27/23 23:50 74 29 H 90 08/27/23 23:45 98/47 L 08/27/23 23:45 74 28 H 90 08/27/23 23:42 76 30 H 95 08/27/23 23:25 76 20 93 High Flow Nasal Cannula 08/27/23 23:00 78 34 H 100 08/27/23 23:00 103/45 L 08/27/23 22:55 78 20 94 High Flow Nasal Cannula 08/27/23 21:59 94 High Flow Nasal Cannula 08/27/23 21:57 75 30 H 82/44 L 94 High Flow Nasal Cannula 08/27/23 20:46 72 30 H 95 High Flow Nasal Cannula 08/27/23 20:46 71/34 L 08/27/23 20:45 77/37 L 08/27/23 20:45 71 35 H 96 High Flow Nasal Cannula 08/27/23 20:39 71 22 99 High Flow Nasal Cannula 08/27/23 20:35 72 28 H 99 High Flow Nasal Cannula 08/27/23 20:24 75 20 93/51 L 94 High Flow Nasal Cannula 08/27/23 18:43 81 22 95/46 L 93 High Flow Nasal Cannula 08/27/23 18:41 82 08/27/23 18:00 81 23 99/47 L 97 High Flow Nasal Cannula 08/27/23 17:51 85 92/44 L 08/27/23 17:45 85 77/46 L 08/27/23 17:05 85 35 H 103/55 L 93 High Flow Nasal Cannula 08/27/23 16:00 95 H 27 H 113/53 L 95 High Flow Nasal Cannula 08/27/23 15:57 93 H 26 H 94 High Flow Nasal Cannula 08/27/23 15:01 78 30 H 90 High Flow Nasal Cannula O2 Flow Rate FiO2 08/28/23 01:51 08/28/23 01:51 08/28/23 01:50 08/28/23 01:45 08/28/23 01:45 08/28/23 01:42 08/28/23 01:42 08/28/23 01:40 08/28/23 01:39 08/28/23 01:39 08/28/23 01:31 08/28/23 01:31 08/28/23 01:30 08/28/23 01:23 08/28/23 01:23 08/28/23 01:20 08/28/23 01:17 08/28/23 01:10 08/28/23 01:01 08/28/23 01:01 08/28/23 01:00 08/28/23 00:50 08/28/23 00:46 08/28/23 00:46 08/28/23 00:40 08/28/23 00:30 08/28/23 00:30 08/28/23 00:20 08/28/23 00:16 08/28/23 00:16 08/28/23 00:15 5 08/28/23 00:10 08/28/23 00:01 08/28/23 00:01 08/28/23 00:00 08/27/23 23:50 08/27/23 23:45 08/27/23 23:45 08/27/23 23:42 08/27/23 23:25 40 45 08/27/23 23:00 08/27/23 23:00 08/27/23 22:55 40 50 08/27/23 21:59 40 08/27/23 21:57 40 08/27/23 20:46 40 08/27/23 20:46 08/27/23 20:45 08/27/23 20:45 40 08/27/23 20:39 40 60 08/27/23 20:35 40 08/27/23 20:24 40 08/27/23 18:43 40 01/05/24 18:41 08/27/23 18:00 40 08/27/23 17:51 08/27/23 17:45 08/27/23 17:05 40 08/27/23 16:00 40 08/27/23 15:57 40 60 08/27/23 15:01 35 35 Laboratory Results Cardiac Enzymes 08/27/23 08/27/23 08/27/23 Range/Units 14:42 15:55 17:52 AST Cancelled 19 Troponin I High Sens Cancelled 1027.6 H* 954.5 H* B-Natriuretic Peptide 785 H (0-100) pg/ml 08/27/23 Range/Units 21:05 AST Troponin I High Sens 899.3 H* B-Natriuretic Peptide (0-100) pg/ml Coagulation 08/27/23 Range/Units 15:55 PT 19.8 H (9.0-12.0) Seconds B-Natriuretic Peptide 785 H (0-100) pg/ml CBC 08/27/23 Range/Units 14:42 WBC 2.00 L (4.8-10.8) K/ul RBC 3.99 L (4.70-6.10) M/uL Hgb 10.5 L (14.0-18.0) g/dl Hct 35.9 L (42.0-52.0) % Plt Count 160 (130-400) K/uL Neut # (Auto) 1.80 (1.40-6.50) K/uL Lymph # (Auto) 0.09 L (1.20-3.40) K/uL [place] # (Auto) 0.03 L (0.11-0.59) K/uL Eos # (Auto) 0.05 (0.00-0.50) K/uL Baso # (Auto) 0.01 (0.00-0.20) K/uL Comprehensive Metabolic Panel 08/27/23 08/27/23 Range/Units 14:42 15:55 Sodium Cancelled 142 Potassium Cancelled 3.9 Chloride Cancelled 109 H Carbon Dioxide Cancelled 24 BUN Cancelled 33 H Creatinine Cancelled 1.57 H Glucose Cancelled 94 Calcium Cancelled 8.0 L AST Cancelled 19 ALT Cancelled 11 Alkaline Phosphatase Cancelled 112 H Total Protein Cancelled 6.8 Albumin Cancelled 3.7
--- NOTE | 2023-08-28 03:26 | Death Pronouncement Note ---
Date of Service August 28, 2023 Pronouncement Note Admission Date Admission Date: August 27, 2023 Contributing Factors (1) CAD (coronary artery disease): (2) COPD (chronic obstructive pulmonary disease): (3) Angina pectoris: (4) Acute exacerbation of CHF (congestive heart failure): (5) HLD (hyperlipidemia): (6) Diabetes mellitus, type II: (7) HTN (hypertension): (8) VENICE (obstructive sleep apnea): Hospital Course Hospital Course: Patient admitted 08/27/23 for worsening dyspnea over the past 2-3 days with developing hypoxia and cough earlier in the day. He was noted to have elevated HScTNI on arrival as well as elevated BNP. Patient and state that he had fevers and chills over the past 3 days with increasing shortness of breath and a non-productive cough that started yesterday and into this morning. He did have chest pain in his upper left chest and was unsure if it was worse with coughing or with movement. He took 2 nitroglycerine tablets with minimal relieve, but currently he feels his chest pain is gone. He endorsed that he had some radiation of the pain down into his right fingers in the morning, but this has also resolved. In regards to his shortness of breath, he and report that he had very fast breathing this morning with what she felt was respiratory rates in the 40s, this did not improve until this afternoon while in the EMD following initiation of HFNC and Lasix. He had a VBG on arrival that was consistent with Respiratory Acidosis. He had routine labs performed to include HScTNI, BNP, VBG, and ECG performed. He was noted with increased BNP and HsCTNI >1000 with ECG that did no have acute STEMI changes. Case was discussed by primary service and cardiology service. He had an CTA of the chest performed that was negative for PE, but did have increase in ground glass opacities when compared to previous in 2021, and small pleural effusions (see official interpretation below). As night progressed patient was noted to be hypotensive and with HFNC not in and hypoxic. Notified by admitting service and patient will be transferred to ICU for overall closer monitoring as well as hemodynamic support if required. Patient was admitted to ICU and remained hemodynamically stable, was tolerating his CPAP for bedtime, around 130 the patient became acutely agitated pulling off his CPAP mask, stated he could not breath and went unresponsive. He underwent CPR for PEA and was successfully resuscitated with return of ROSC, he remained with agonal breathing and subsequently was intubated. He remained hypotensive and was placed on Neosynepherine infusion, his ABG was with PH 7.22, CO2 33, HCO3 16, PaO2 59. PEEP was increased and remained on FIo2 100%. ECG was obtained that was noted with axis change, LBBB, and ST elevations. Cardiology was notified and was on way in. While preparing for access the patient again went bradycardic to asystole requiring CPR initiation Epinephrine pushes, he again had return of ROSC. He was also started on Epinephrine infusion at that time. Following Emergent central access to his groin, the patient again went pulseless with PEA with HR in the 70s. CPR initiated again and return with ROSC following Epinephrine push and Bicarb. After this resuscitation Cardiology was present and assisted with resuscitation. Airway was re-evaluated multiple times and remained with adequate ETcO2 through CPR. Bedside ultrasound performed on by Cardiology Dr. Evans with contractions noted and without tamponade. Patient continued to have refractory PEA and Asystole with cardiac arrests. When he would get a rhythm back appeared to have been in flutter and did attempt x1 at cardioversion to stabilize his electrical activity. Heart Alert was activated with hopes of getting patient to the director labor standards, however we were unsuccessful at maintaining a perfusing rhythm without CPR or further inotrope. Despite epinephrine infusion and Dopamine infusions and Norsynephrine infusions, the patient was resuscitated for close to 1 hour and 25 minutes and decision was made to terminate resuscitation efforts secondary to time of CPR, refractory non perfusable rhythms, and asystole. Time of 0254. See cardiac arrest record for full details. Summary Additional details: Cardiac arrest as above. Likely suffered acute STEMI resulting in cardiac arrest. Additional Data Attending physician: Dori Talbert DO
--- NOTE | 2023-08-28 03:40 | Procedure Note ---
Procedure Note Date of Service August 28, 2023 Note LEFT FEMORAL CENTRAL LINE PROCEDURE NOTE: Procedure: LEFT FEMORAL Central Line Placement Proceduralist: Tomas JEFFERS (ACNP-) Attending: Dr. Quinn Indication: Central Drug Administration, Poor Venous Access, Multiple Lab Draws Necessary, etc. Anesthesia: [x]None Emergent Consent implied as patient was cardiac arrest and active resuscitation. As this was under cardiac arrest the central line WAS NOT placed under Maximum Sterile Barriers. Patients LEFT GROIN was cleansed using Chloraprep, sterile gloves were used and minimal drape was used to cover immediate area. The FEMORAL Vein and FEMORAL Artery were identified using ultrasound. Under direct visualization with the ultrasound the LEFT FEMORAL vein was cannulated under direct ultrasound guidance using an introducer needle on a syringe. Good venous blood return was maintained prior to removal of syringe from introducer needle. Using Seldinger Technique, a guide wire was advanced through the introducer needle without resistance. The introducer needle was removed and ultrasound images were obtained of the guide wire within FEMORAL Vein and saved to the patients medical record. A small incision was made in penetrating fashion at the guide wire insertion site utilizing an 11 blade scalpel. The dilator was advanced to the vessel without resistance. The dilator was exchanged for the triple lumen catheter which was advanced into the vessel without resistance. The guide wire was removed intact from the catheter without issue. Claves were placed on each catheter tip with confirmation of good blood flow from each lumen. Each port was easily flushed with sterile saline. The catheter was placed at 20 cm and sutured in place. BioPatch was applied to the catheter and a sterile Tegaderm dressing was applied over the catheter with careful attention to sterility. Patient tolerated procedure well. No immediate complications were met. Images obtained WERE NOT saved for permanent record as placed under cardiac arrest Artery AND Vein visualized: YES Compressible Vein: YES Guidewire or Short Catheter seen in vein prior to dilation: YES Coding
[2023-08-28] MEDS ORDERED: SODIUM CHLORIDE 0.9% 10ML FLUSH IV ONE (05:53)
[2023-08-28] MEDS ORDERED: ROCURONIUM BROMIDE 10 MG/ML 5 ML VIAL IV ONE (05:53)
[2023-08-28] MEDS ORDERED: ATROPINE SULFATE 0.1 MG/ML 10ML SYR IV ONE (05:53)
[2023-08-28] MEDS ORDERED: CALCIUM CHLORIDE 10% 10 ML SYR IV ONE (05:53)
[2023-08-28] MEDS ORDERED: LORazepam 2 MG/1 ML VIAL IV ONE (05:53)
[2023-08-28] MEDS ORDERED: PIPERACILLIN/TAZOBACTAM 4.5 GM in DEXTROSE 5% MINI-B 100 ML IV SCH (06:00)
--- NOTE | 2023-08-28 07:34 | XRay Report ---
SUPINE PORTABLE AP CHEST RADIOGRAPH CLINICAL HISTORY: eval ETT post intubation COMPARISON STUDY: Chest radiograph and chest CT August 27, 2023. FINDINGS: Tip of endotracheal tube is 1 cm above the eddie. Tip of nasogastric tube is below the low er aspect of this image but at least within the body of the stomach. Elevation of the right hemidiaph ragm is unchanged. There are median sternotomy wires. Cardiomegaly is again noted. There is no pneumo thorax. Small bilateral pleural effusions are suspected although better depicted on prior chest CT. I nterstitial thickening persists. IMPRESSION: 1. Tip of endotracheal tube 1 cm above the eddie. The tube could be withdrawn 2 cm. 2. Persistent interstitial thickening which favors pulmonary edema. An infectious process could appea r similar although is considered less likely. ACT 112: Negative or not required by law. Electronically signed by: Justin Lundy M.D. 08/28/2023 7:33 AM
--- NOTE | 2023-08-28 08:02 | Ultrasound Report ---
ABDOMINAL ULTRASOUND, RIGHT UPPER QUADRANT HISTORY: eval for gallbladder disease. COMPARISON: CT of the abdomen and pelvis January 02, 2023. Chest CT August 27, 2023. FINDINGS: This exam is compromised by suboptimal penetration. The pancreas is largely obscured by sto ol. No hepatic lesions are identified. There is no biliary ductal dilatation. Common bile duct measur es 6 mm in caliber. The gallbladder is distended. However, there are no gallstones. There is no gallb ladder wall thickening. No sonographic Pena sign was reported by the technologist. There is no righ t hydronephrosis. IMPRESSION: 1. Distended gallbladder. However, no gallstones. No gallbladder wall thickening. No sonographic evid ence for acute cholecystitis. 2. No biliary ductal dilatation. ACT 112: Negative or not required by law. Electronically signed by: Justin Lundy M.D. 08/28/2023 8:01 AM
--- NOTE | 2023-08-28 08:24 | Procedure Note ---
Procedure Note Date of Service August 28, 2023 Note CODE ALEXANDER Responded to a CODE BLUE called overhead in room 108. Upon my arrival CPR was in progress, several staff members already at bedside, and medication had been given. ACLS being followed and firer powerhouse recording. Patient was being bagged using BVM by Moses Luong NP in the ICU. We did achieve ROSC, and I assisted respiratory and setting up for intubation. Patient noted to be tachycardic and hypertensive, IV fluids given additionally and medications drawn for intubation. I supervised the sedation and subsequent intubation of this patient noting success using video laryngoscopy watching the 7.5 ET tube passed through the patient's cords. Tube secured at 23 cm at the lip. I personally performed auscultation and noted breath sounds bilaterally, positive color change noted, condensation of the tube, and improved oxygen saturations. Patient given additional IV fluids, and blood pressure maintained following the procedure. Patient started on propofol for sedation. Please see the ICU VETERINARY NURSE notes for additional details regarding this episode and ongoing patient care. Time spent at code: 17 min Coding
--- OUTSIDE RECORDS SUMMARY | 2023-08-28 08:32 | External Medical Summary | Summary of Care ---
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* Allergies Active Allergy Reactions Criticality Noted Date Comments Propoxyphene N-Acetaminophen 06/22/2012 N/V Fentanyl Nausea/vomiting 10/15/2009 Oxycodone High 01/21/2023 Other reaction(s): vomiting Oxycodone-Acetaminophen Nausea/vomiting High 010 documented as of this encounter (statuses as of 08/10/2023) Medications Medication Sig Dispensed Refills Start Date End Date Status SYRINGE (DISPOSABLE) 5 ML MISCIndications:DM type 2 causing neurological disease (HCC) use as directed for lantus 1 box 11 09/11/2009 Active ONETOUCH ULTRA 2 W/DEVICE KITIndications:DM type 2, goal A1C 7-8 use as directed 1 Kit 0 03/09/2012 Active ONETOUCH DELICA LANCETS MISCIndications:DM type 2, goal A1C 7-8 use up to 4 times daily 100 Each 11 03/09/2012 Active ONETOUCH ULTRA BLUE STRPIndications:DM type 2, goal A1C 7-8 TEST BLOOD SUGAR 7 TIMES A DAY 200 Strip 5 01/12/2014 Active Magnesium Oxide 400 MG TabletIndications:H ypomagnesemia TAKE 1 TABLET BY MOUTH ONCE A DAY 30 Tab 5 09/29/2017 Active Insulin Syringe-Needle U-100 (BD INSULIN SYRINGE ULTRAFINE) 31G X 5/16" 0.5 ML MISCIndications:Typ e 1 diabetes mellitus with hemoglobin A1c goal of less than 8.0% (HCC) Use to inject insulin 5 times daily 200 Each 11 06/23/2018 Active Misc Natural Products (T-RELIEF CBD+13) SUBL Place 1 Each under the tongue at bedtime. 0 Active insulin isophane human (NOVOLIN N RELION) 100 UNIT/ML injectionIndication s:Type 1 diabetes mellitus with hemoglobin A1c goal of less than 8.0% (HCC) INJECT 36 UNITS SUBCUTANEOUSLY AT NOON AND INJECT 25 UNITS AT MIDNIGHT DAILY 30 mL 0 01/17/2020 Active CPAP every night at bedtime . 0 Active oxygen IN GASIndications:Cent rilobular emphysema (HCC),Chronic respiratory failure with hypoxia (HCC) Use 2 LPM with exertion 1 Each 0 11/26/2021 Active Additional Information Patient taking differently: 3 L/min(Oxygen) HS, Use 3 LPM with exertion and at night, Reported on 10/26/2022 Nebulizer DeviceIndications:C hronic respiratory failure with hypoxia (HCC),Centrilobular emphysema (HCC) Use with nebulized medications 1 Each 0 04/09/2022 Active oxygen IN GASIndications:Co Op bobbi respiratory failure with hypoxia (HCC),Centrilobular emphysema (HCC) 2 LPM by inogen or portable oxygen concentrator with exertion. Use 3 LPM by standing concentrator with sleep 1 Each 0 05/19/2022 Active Docusate Sodium 100 MG Oral Tablet Take 1 Tablet by mouth in the morning and 1 Tablet before bedtime. 0 Active Tylenol 325 MG Oral Capsule (Acetaminophen) Take 650 mg by mouth in the morning and 650 mg before bedtime. 0 Active Metoprolol Tartrate 100 MG Oral Tablet (Lopressor)Indicati ons:Essential hypertension with goal blood pressure less than 140/90 TAKE 1 TABLET BY MOUTH IN THE MORNING AND 1 TABLET BEFORE BEDTIME 180 Tablet 3 12/30/2022 4 Active traZODone HCl 100 MG Oral Tablet (Desyrel) TAKE ONE TABLET BY MOUTH AT BEDTIME NEEDED FOR SLEEP 90 Tablet 2 11/13/2022 4 Active Umeclidinium [place] 62.5 MCG/ACT Inhalation Aerosol Powder Breath Activated (INCRUSE ellipta)Indications :COPD, group B, by GOLD 2017 classification ([facility]) INHALE ONE PUFF BY MOUTH EVERY DAY IN THE MORNING 90 Each 3 11/05/2022 4 Active Warfarin Sodium 5 MG Oral Tablet (Coumadin) TAKE ONE TABLET BY MOUTH AT BEDTIME 90 Tablet 3 11/02/2022 4 Active Furosemide 20 MG Oral Tablet (Lasix) TAKE ONE TABLET BY MOUTH EVERY MORNING PLUS ADDITIONAL ONE TABLET TWO DAYS PER WEEK 110 Tablet 3 10/23/2022 4 Active Atorvastatin Calcium 80 MG Oral Tablet (Lipitor)Indication s:Dyslipidemia, goal LDL below 100 TAKE ONE TABLET BY MOUTH EVERY DAY 90 Tablet 0 10/06/2022 4 Active Ranolazine ER 500 MG Oral Tablet Extended Release 12 Hour (Ranexa)Indications :Coronary artery disease of [place] artery of [place] heart with stable angina pectoris ([facility]) TAKE ONE TABLET BY MOUTH TWICE A DAY -- IN THE MORNING AND BEFORE BEDTIME 180 Tablet 3 09/07/2022 4 Active Isosorbide Mononitrate ER 60 MG Oral Tablet Extended Release 24 Hour (Imdur)Indications: HTN, goal below 130/80,Old myocardial infarction TAKE ONE TABLET BY MOUTH TWICE A DAY 200 Tablet 3 03/02/2023 Active Vitamin D 25 MCG (1000 UT) Oral Tablet Take 1 Tablet by mouth every evening. 0 Active Vitamin E 1000 UNIT Oral Capsule Take 1 Capsule by mouth in the morning. 0 Active NovoLIN R ReliOn 100 UNIT/ML Injection Solution (insulin REGULAR human)Indications:T ype 1 diabetes mellitus with hemoglobin A1c goal of less than 8.0% ([facility]) Inject 15 Units under the skin in the morning and 15 Units at noon and 15 Units before bedtime. With meals. DISPENSE 5 vials. 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 Has O2 at home to wear. Low suspicion of PE. On coumadin. No wheezing, doubt COPD exacerbation -CMP, CBC, PT/INR and CXR -continue PT -will f/u closely Type 2 diabetes mellitus without complication Last Assessment & Plan: Continue novolin 15 u TID Gait disturbance 10/26/2022 Severe obesity (BMI 35.0-39.9) with comorbidity 08/26/2022 COPD, group B, by GOLD 2017 classification 08/03 Overview: Per COPD GOLD Classification Last Assessment & Plan: Current Status : Actively exacerbating Degree of Condition Awareness: Demonstrates very good awareness of condition, disease course, and prognosis "RED FLAG" COPD symptoms: o Increased dyspnea on exertion ("I can't walk to the kitchen or up the stairs without coughing and wheezing", "My chest feels tight any time I move") Medication Regimen o Class A - SHAMIKA-EMELINA Combination Inhaler, incruse Self-Management plan o High frequency nebulizer treatments every 4-6 hours around the clock Exacerbation plan o Has not required in home advanced interventions Typical atrial flutter 07/31/2022 Chronic respiratory failure with hypoxia 022 Last Assessment & Plan: Only wearing oxygen at night and during exertion. Restrictive lung disease 02/11/2022 Hypertensive heart and kidne y disease with chronic diastolic congestive heart failure and stage 3a chronic kidney disease 01/26/2022 Last Assessment & Plan: Current Status: "Stable" for patient / At or near baseline Degree of Condition Awareness: Demonstrates very good awareness of condition, disease course, and prognosis Current Heart Failure Classifications: o With ordinary activity such as doing housework, yard work or shopping ([employer] CLASS II) "RED FLAG" HF Symptoms: o Increased dyspnea on exertion (Example: "I can't walk to the kitchen or up the stairs") Chronic Medication Regimen: o Beta Charli Therapy: Metoprolol Tartrate o RONY Inhibitor/ARB Therapy: Other: none o Diuretic therapy: Lasix Self - Management Plan o Double dose of Furosemide for 3 days Exacerbation Plan o Anticipated IV Lasix dose: 40 mg Diastolic congestive heart failure 10/20/2021 Last Assessment & Plan: Continue Lasix Spironolactone discontinued Atrial flutter 10/20/2021 Last Assessment & Plan: Rate controlled -changed from eliquis to coumadin. Last INR 3.9. 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 Last Assessment & Plan: Cognition at baseline -not tolerating Aricept HTN (hypertension) 09/28/2012 Atherosclerosis of [place] artery of extremity Obstructive sleep apnea 01/13/2010 Overview: ICD-10 update of inactive term Last Assessment & Plan: Compliant with CPAP Old myocardial infarction 10/25/2009 Lumbar disc disorder with myelopathy 10/15/2009 Overview: Fentanyl patch caused severe nausea and vomiting Failed ultram Oxycodone caused nausea Preglaucoma 08/29/1998 History of TIA (transient ischemic attack) documented as of this encounter (statuses as of 08/10/2023) Resolved Problems Problem Noted Date Diagnosed Date Resolved Date Diabetic polyneuropathy asso ciated with type 1 diabetes mellitus 10/26/2022 10/26/2022 Hypertensive kidney disease with stage 3a chronic kidney disease 10/05/2022 10/20/2022 CKD stage 3 due to type 1 diabetes mellitus 07/01/2020 01/26/2022 Overview: Per CKD protocol-More specific added to PL Hypertensive kidney disease with stage 3a chronic kidney disease 07/01/2020 07/02/2022 Overview: Per CKD protocol - HTN + CKD III - conditions have assumed relationship per current coding guidelines. Hypertensive kidney disease with chronic kidney disease stage III 02/19/2020 07/04/2020 Overview: HTN + CKD III - conditions have assumed relationship per current coding guidelines. Type 1 diabetes mellitus wit h peripheral angiopathy without gangrene 02/19/2020 07/09/2022 Overview: DM1 + PAD - conditions have assumed relationship per current coding guidelines. 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 HTN, goal below 130/80 03/31/201204/14 Overview: Per HTN Protocol #27. Hypertension goal BP (blood pressure) < 140/90 10/06/2011 03/31/2012 HTN, goal below 130/80 09/18/200910/06 Overview: Per HTN Taxonomy. Diuretics caused dizziness. Dyslipidemia, goal LDL below 70 08/01/2009 10/26/2022 Overview: Per Lipid Taxonomy. Last Assessment & Plan: Continue atorvastatin Type 1 diabetes mellitus wit h hemoglobin A1c goal of less than 7.0% 06/06/2009 10/25/2009 Overview: Modified per Diabetes protocol #14. ICD-10 update of inactive term DM type 1, not at goal 07/29/200106/06 Overview: Modified per Diabetes protocol #14. Dyslipidemia, goal to be determined 07/29/2001 07/17/2009 Overview: Per Lipid Taxonomy Other psoriasis 07/29/2001 03/22/2020 HTN, goal below 140/90 07/29/200109/18 Overview: Per HTN Taxonomy. CELLULITIS OF LEG of L vein graft site 12/31/1997 02/19/1998 PURE HYPERCHOLESTEROLEM 07/23 Overview: Per Lipid Taxonomy. CHR ISCHEMIC HRT DIS NEC 12/2009 DM type 2, not at goal 06/06 Overview: Modified per Diabetes protocol #14. documented as of this encounter (statuses as of 08/10/2023) Immunizations Name Administration Dates Next Due COVID-19 mRNA, LNP-s, No Pre serve, 2-Dose Series (Moderna) 12/23/2021,07/24/2021,01/10/2021,12/13 COVID-19, mRNA, LNP-s, PF, B ooster, 100mcg/0.5mg (Moderna) 07/24/2021 H1N1 2009 Influenza, IM 10/15/2009 Pneumococcal Conjugate Vacc, 13 Valent (Prevnar) 05/14/2015 Pneumococcal Polysaccharide PPV23 (Pneumovax) 09/11/2009 Season Influenza, Quad, PF, Adjuvanted, 65+ Yrs, IM (FLUAD) 05/04/2020 Seasonal Influenza, PF, 6 M & above, IM , (FluLaval or Fluzone) 06/08/2018,06/16/2017 Seasonal Influenza, Quadriva lent Hd (Fluzone Hd) 05/18/2023,05/27/2022,06/23/2021 Seasonal Influenza, Quadriva lent, No Preserve, IM 07/06/2016 Seasonal Influenza, Split, I IV3, With Preserve, Inj 05/14/2015,05/11/2014,05/16/2013,06/06,06/29/2011,05/14/2010,06/06/2009 Seasonal Influenza, Trivalen t, Adjuvanted, 65+ yrs 05/16/2019 TDAP (age 10 and older)(Boostrix) 10/03/2012 TDAP (age 11 and older)(Adacel) 01/10/2018 Zoster Vaccine Recombinant (Shingrix) 03/22/2020 ,08/30/2019 documented as of this encounter Social History Tobacco Use Types Packs/Day Years Used Date Smoking Tobacco: Some Days Cigarettes 64 Smokeless Tobacco: Never Comments:2 - 4 cigarettes pe r month Alcohol Use Standard Drinks/Week Comments Yes 0 (1 standard drink = 0.6 oz pur e alcohol) 6 drink/yr if that PHQ-2 Answer Date Recorded PHQ Adult Total Score 0 11/20/2022 Hunger Vital Sign Answer Date Recorded Within the past 12 months, y ou worried that your food would run out before you got the money to buy more. Never true 11/21/19 23 Within the past 12 months, t he food you bought just didn't last and you didn't have money to get more. Never true 11/20/2022 Sex and Gender Information Value Date Recorded Sex Assigned at Male 11/20/2022 1:24 PM EDT Gender Identity Male 11/20/2022 1:24 PM EDT Sexual Orientation Straight 11/20/2022 1: 24 PM EDT Job Start Date Occupation Industry Not on file Not on file Not on file documented as of this encounter Functional Status Functional Status Response Date of Assess ment Are you deaf or do you have serious difficulty h earing? No 03/01/2019 Are you blind or do you have serious difficulty seeing, even when wearing glasses? No 03/01/2019 Do you have serious difficul ty walking or climbing stairs? (5 years old or older) No 03/01/2019 Do you have difficulty dress ing or bathing? (5 years old or older) No 03/01/2019 Because of a physical, menta l, or emotional condition, do you have difficulty doing errands alone such as visiting a doctor s office or shopping? (15 years old or older) No 03/01/20 19 Cognitive Status Response Date of Assessm ent Because of a physical, menta l, or emotional condition, do you have serious difficulty concentrating, remembering, or making decisions? (5 years old or older) No 03/01/2019 documented as of this encounter Progress Notes * Rona Garcia, skein bleacher - 08/10/2023 12:35 PM EST Contacts Type Contact Phone/Fax 08/09/2023 11:38 AM EST Fax (Incoming) 08/10/2023 12:34 PM EST Phone (Outgoing) Kaleb Oakley (Self) [phone] (H) Left Message Subjective Advised patient to contact Anticoagulation Clinic if any unusual bruising or bleeding, recent illness, changes in medication, or questions/concerns. PT/INR results, Coumadin dose instructions, and next PT/INR date communicated as noted by Pharmacist: Yes SHIKHA DAVILA Tech 08/10/2023, 12:35 PM * Layne Fuller RP - 08/10/2023 9:35 AM EST Images from the original note were not included. [facility] Current Warfarin Dose As of 08/10/2023 Warfarin maintenance plan: 2.5 mg (5 mg x 0.5) every day INR Result As of 08/10/2023 INR goal: 2.0-3.0 INR used for dosin.7 (08/09/2023) Assessment & Plan Warfarin Plan As of 08/10/2023 Full warfarin instructions: 08/10: 5 mg; Otherwise 2.5 mg every day Next INR check: 08/16/2023 Repeat PT/INR in 1 week(s) Weekly dose: not changed Additional Dosing Information: Description Home machine (prev GML) Tech to contact patient with dose instructions as noted. Layne Fuller RPh 08/10/2023, 9:35 AM * Vanessa Myles skein bleacher - 08/09/2023 11:38 AM EST Patient Phone Numbers Received fax from [employer] for today's INR result of 1.7 Thank you, Vanessa Myles Tow [employer] [facility] 08/09/2023,11:39 AM documented in this encounter Plan of Treatment Upcoming Encounters Date Type Department Care Team (Late st Contact Info) Description 08/18/2023 4:00 PM EST Home Visit [facility], [facility] [address] [facility] [place] [address] Danitza Salinas, RN [address] [facility] [place] [address] 09/03/2023 1:20 PM EST Pharmacy Family Practice [address] [place] [address] [address] [place] [phone] College, Pharmacist [address] [place] [id number] 09/03/2023 1:40 PM EST Office Visit Family Practice [address] [place] [address] [address] [place] [phone] Gay López DO [address] [place] [address] 2023 10:00 AM EST Office Visit Pulmonary Medicine, [facility] [address] [facility] [place] [address] Grey Green MD [address] [place] [address] 03/28/2024 2:00 PM EDT Office Visit Rheumatology [place] [phone] [facility] [place] [address] Yudi Horowitz CRNP [address] [facility] [place] [address] 07/25/2024 11:40 AM EST Office Visit [facility] [address] [place] [phone] Marnie Hartman, [address] [place] [address] Scheduled Procedures Name Priority Associated Diagnoses Date/Ti me COLONOSCOPY FLEXIBLE PROXIMAL DIAGNOSTIC Recall History of colon polyps Health Maintenance Due Date Last Done Comments Hepatitis B (1 of 3 - Risk 3-dose series) 2004 COLONOSCOPY-EVERY 2 YRS AGES 18-100 11/19/2022 11/19/2020, 11/19/2020, 05/16/2015, Additional history exists Diabetic Foot Exam 02/06/2023 02/06/2022, 0 08/30/2019, 08/18/2018, Additional history exists COVID-19 Vaccine ( season) 2023 12/23/2021, 07/24/2021, 07/24/2021, Additional history exists CKD PHOS USE SMARTSET 00439 07/02/202306/23, 07/01/2021, 03/22/2020 Diabetic Eye Exam 07/20/2023 07/20/2022, , 08/26/2020, Additional history exists O2 ASSESSMENT COMPLETED IN PAST YEAR FOR COPD 08/10/2023 08/10/2022 DISCUSS TOBACCO CESSATION (REFER TO SMARTSET #3291) 08/26/2023 08/26/2022, 05/27/2022, 02/11/2022, Additional history exists HbA1c 10/15/2023 04/14/2023, 06/23, 02/06/2022, Additional history exists Depression Screening 11/21/2023 11/20/2022 GFR 11/26/2023 05/27/2023, 03/24, 03/29/2023, Additional history exists DXA Scan 03/11/2024 03/11/2023 CKD HGB USE SMARTSET 86759 03/29/202403/29, 03/29/2023, 12/01/2022, Additional history exists Albumin/Creatinine Ratio 05/31/2024 023, 10/20/2021, 08/11/2017, Additional history exists DTaP,Tdap,and Td Vaccines (3 - Td or Tdap) 01/11/2028 01/10/2018, 10/03/2012 Pneumococcal Vaccine: 65+ Years Completed 05/14/2015, 09/11/2009, 07/12/2003 Zoster Vaccines Completed 03/22/2020, 08/30/2019 COLONOSCOPY-EVERY 5 YRS AGES 18-100 Discontinued 11/19/2020, 11/19/2020, 05/16/2015, Additional history exists Alpha-1 Antitrypsin Completed 03/11/2022 VITAMIN D LEVEL ONCE IN A LIFETIME-USE SMARTSET# [id number] Completed 03/29/2023, 05/12/2014 Influenza Vaccine (FLU shot) Completed 05/18/2023, 05/27/2022, 06/23/2021, Additional history exists GARDASIL-HPV IMMUNIZATION SERIES Aged Out No longer eligible based on patient's age to complete this topic MENINGOCOCCAL (MENACTRA/MENVEO) Aged Out No longer eligible based on patient's age to complete this topic documented as of this encounter Medical Devices Not on filedocumented as of this encounter Procedures Procedure Name Priority Date/Time Associated Diagnosis Comments OUTSIDE LAB-PT/INR Routine 08/09/2023 documented in this encounter Results * OUTSIDE LAB-PT/INR (08/09/2023) INR-OUTSIDE LAB 1.7 08/09/2023 History Per Patient LABORATORY documented in this encounter Visit Diagnoses Diagnosis [facility] current use of anticoagulant therapy- Primary documented in this encounter Advance Directives Latest Code Status on File Code Status Date Activated Date Inactivated Comments Full Code 08/10/2022 7:57 AM 08/10/2022 12:46 PM Th is order reflects the patients wishes and were consensually agreed upon. Question Answer Comments Discussion of Advance Directives occurred with: Not Discussed due to patient's condition Code Status History Code Status Date Activated Date Inactivated Comments Full Code 08/10/2022 7:57 AM 08/10/2022 7:57 AM Thi s order reflects the patients wishes and were consensually agreed upon. Question Answer Comments Discussion of Advance Directives occurred with: Not Discussed due to patient's condition Full Code 03/02/2019 8:50 AM 03/03/2019 8:02 PM This order reflects the patients wishes and were consensually agreed upon. Question Answer Comments Discussion of Advance Directives occurred with: Patient Full Code 01/29/2017 11:10 AM 01/30/2017 3:01 PM This order reflects the patients wishes and were consensually agreed upon. Question Answer Comments Discussion of Advance Directives occurred with: Not Discussed Does the patient have a Living Will? No Does the patient have Health Care Power of Ship Rigger? No Full Code 08/14/2010 2:57 PM 08/15/2010 2:24 PM Thi s order reflects the patients wishes and were consensually agreed upon.
--- OUTSIDE RECORDS SUMMARY | 2023-08-28 08:32 | External Medical Summary | Summary of Care ---
Author Name Unknown Organization [facility] Address [address] [facility] [place] [address] Phone [phone] Care Team Providers Care Balance Wheel Motion Inspector Name Role Phone Unavailable Primary Care Provider Unavailabl e Encounter Details Date Type Department Care Team (Late st Contact Info) Description 08/16/2023 Result Scan Unspecified Department <No scans attached> Allergies Active Allergy Reactions Criticality Noted Date Comments Propoxyphene N-Acetaminophen 06/22/2012 N/V Fentanyl Nausea/vomiting 10/15/2009 Oxycodone High 01/21/2023 Other reaction(s): vomiting Oxycodone-Acetaminophen Nausea/vomiting High 010 documented as of this encounter (statuses as of 08/17/2023) Medications Medication Sig Dispensed Refills Start Date End Date Status SYRINGE (DISPOSABLE) 5 ML MISCIndications:DM type 2 causing neurological disease (HCC) use as directed for lantus 1 box 11 09/11/2009 Active ONETOUCH ULTRA 2 W/DEVICE KITIndications:DM type 2, goal A1C 7-8 use as directed 1 Kit 0 03/09/2012 Active ONETOUCH DELOSCAR LANCETS MISCIndications:DM type 2, goal A1C 7-8 [...] 1 Each 0 04/09/2022 Active oxygen IN GASIndications: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 respiratory failure with hypoxia (HCC),Centrilobular emphysema [...] 90 Tablet 2 11/13/2022 4 Active Umeclidinium [place] 62.5 MCG/ACT Inhalation Aerosol Powder Breath Activated (INCRUSE ellipta)Indications :COPD, group B, by GOLD 2017 classification ([facility]) INHALE ONE PUFF BY MOUTH EVERY DAY [...] 12 Hour (Ranexa)Indications :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 With meals. DISPENSE 5 vials. 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 Obstructive sleep apnea 01/13/2010 Overview: ICD-10 update of inactive term Last Assessment & Plan: Compliant with CPAP Old myocardial infarction 10/25/2009 Lumbar disc disorder with myelopathy 10/15/2009 Overview: Fentanyl patch caused severe nausea and vomiting Failed ultram Oxycodone caused nausea Preglaucoma 08/29/1998 History of TIA (transient ischemic attack) documented as of this encounter (statuses as of 08/17/2023) Resolved Problems Problem Noted Date Diagnosed Date [...] as of this encounter (statuses as of 08/17/2023) Immunizations Name Administration Dates Next Due COVID-19 mRNA, LNP-s, No Pre serve, 2-Dose Series (Moderna) 12/23/2021,07/24/2021,01/10/2021,12/13 COVID-19, mRNA, LNP-s, PF, B ooster, 100mcg/0.5mg (Moderna) 07/24/2021 H1N1 2008 Influenza, IM 10/15/2009 Pneumococcal Conjugate Vacc, 13 [...] No 03/01/2019 documented as of this encounter Plan of Treatment Upcoming Encounters Date Type Department Care Team (Late st Contact Info) Description 08/18/2023 4:00 PM EST Home Visit [facility] at [facility] [address] [place] [address] Danitza Salinas RN 132 [place] [address] 09/03/2023 1:20 PM EST Pharmacy Family Practice [facility] 293 [place] [phone] College, Pharmacist [address] [place] [address] 09/03/2023 1:40 PM EST Office Visit Family Practice [facility] 293 [place] [phone] Gay López, DO 293 [place] [address] 2023 10:00 AM EST Office Visit Pulmonary Medicine, [facility] [address] Grey Green [facility] [address] [facility] [address] 03/28/2024 2:00 PM EDT Office Visit Rheumatology [place] [id number] [facility], [place] [address] Yudi Horowitz CRNP [address] [place] [address] 07/25/2024 11:40 AM EST Office Visit Sleep Disorders Ctr [facility] 132 [facility] [place] [phone] Marnie Hartman, 132 [facility] [place] [address] Scheduled Procedures Name Priority Associated Diagnoses Date/Ti [...] Additional history exists CKD PHOS USE SMARTSET 33991 07/02/202306/23, 07/01/2021, 03/22/2020 Diabetic Eye Exam 07/20/2023 07/20/2022, , 08/26/2020, Additional history exists DISCUSS TOBACCO CESSATION (REFER TO SMARTSET #3291) 08/26/2023 08/26/2022, 05/27/2022, 02/11/2022, Additional history exists HbA1c 10/15/2023 04/14/2023, 06/23, 02/06/2022, Additional history exists Depression Screening 11/21/2023 11/20/2022 GFR 11/26/2023 05/27/2023, 03/24, 03/29/2023, Additional history exists DXA Scan 03/11/2024 03/11/2023 CKD HGB USE SMARTSET 96219 03/29/202403/29, 03/29/2023, 12/01/2022, Additional history exists Albumin/Creatinine Ratio 05/31/2024 023, 10/20/2021, 08/11/2017, Additional history exists O2 ASSESSMENT COMPLETED IN PAST YEAR FOR COPD 07/22/2024 07/22/2023 DTaP,Tdap,and Td Vaccines (3 - Td or Tdap) 01/11/2028 01/10/2018, 10/03/2012 Pneumococcal Vaccine: 65+ Years Completed 05/14/2015, 09/11/2009, 07/12/2003 Zoster Vaccines Completed 03/22/2020, 08/30/2019 COLONOSCOPY-EVERY 5 YRS AGES 18-100 Discontinued 11/19/2020, 11/19/2020, 05/16/2015, Additional history exists Alpha-1 Antitrypsin Completed 03/11/2022 VITAMIN D LEVEL ONCE IN A LIFETIME-USE SMARTSET# [id number] Completed 03/29/2023, 05/12/2014 Influenza Vaccine (FLU shot) [...] Name Priority Date/Time Associated Diagnosis Comments OUTSIDE LAB RESULTS 08/16/2023 documented in this encounter Results * OUTSIDE LAB RESULTS (08/16/2023) 08/16/2023 No Physician Data Unknown LABORATORY documented in this encounter Advance Directives Latest [...] the patient have Health Care Power of Plastic Sheets Finishing Supervisor? No Full Code 08/14/2010 2:57 PM 08/15/2010 2:24 PM Thi s order reflects the patients wishes and were consensually agreed upon.
--- OUTSIDE RECORDS SUMMARY | 2023-08-28 08:32 | External Medical Summary | Summary of Care ---
Author Name Unknown Organization [facility] Address [address] [place] [address] Phone [phone] Care Team Providers Care Hand Buffer Name Role Phone Unavailable Primary Care Provider Unavailabl e Reason for Visit * Reason Onset Date Comments Appointment 08/24/2023 Encounter Details Date Type Department Care Team (Late st Contact Info) Description 08/24/2023 Telephone [facility], [facility] [address] [place] [address] [place], [facility] [address] [place] [address] Appointment (/) Allergies Active Allergy Reactions Criticality Noted Date Comments Propoxyphene N-Acetaminophen 06/22/2012 N/V Fentanyl Nausea/vomiting 10/15/2009 Oxycodone High 01/21/2023 Other reaction(s): vomiting Oxycodone-Acetaminophen Nausea/vomiting High 010 documented as of this encounter (statuses as of 08/24/2023) Medications Medication Sig Dispensed Refills Start Date [...] nebulized medications 1 Each 0 04/09/2022 Active Additional Information Patient not taking.Reported on 08/18/2023 oxygen IN GASIndications: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 respiratory failure with hypoxia (HCC),Centrilobular emphysema [...] 90 Tablet 2 11/13/2022 4 Active Umeclidinium [place] 62.5 MCG/ACT Inhalation Aerosol Powder Breath Activated (INCRUSE ellipta)Indications :COPD, group B, by GOLD 2017 classification ([facility]) INHALE ONE PUFF BY MOUTH EVERY DAY [...] 12 Hour (Ranexa)Indications :Coronary artery disease of [place] artery of [place] heart with stable angina pectoris ([facility]) TAKE ONE TABLET BY MOUTH TWICE A [...] hemoglobin A1c goal of less than 8.0% ([facility]) Inject 15 Units under the skin in [...] as of this encounter (statuses as of 08/24/2023) Active Problems Problem Noted Date Diagnosed Date [...] artery disease of n ative artery of me[place]op[place] heart with stable angina pectoris 01/30/2017 Overview: More specific. 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 Last Assessment & Plan: Cognition at baseline -not tolerating Aricept HTN (hypertension) 09/28/2012 Atherosclerosis of [place] artery of extremity Obstructive sleep apnea 01/13/2010 Overview: ICD-10 update of inactive term Last Assessment & Plan: Compliant with CPAP Old myocardial infarction 10/25/2009 Lumbar disc disorder with myelopathy 10/15/2009 Overview: Fentanyl patch caused severe nausea and vomiting Failed ultram Oxycodone caused nausea Preglaucoma 08/29/1998 History of TIA (transient ischemic attack) documented as of this encounter (statuses as of 08/24/2023) Resolved Problems Problem Noted Date Diagnosed Date [...] as of this encounter (statuses as of 08/24/2023) Immunizations Name Administration Dates Next Due COVID-19 [...] No 03/01/2019 documented as of this encounter Miscellaneous Notes * Telephone Encounter - [place] [facility] - 08/24/2023 12:34 PM EST Per request schedule return home visit w/Chivo Rubio. Called [facility] for Pt with appt for 08/31/23 @ 3pm. documented in this encounter Plan of Treatment Upcoming Encounters Date Type Department Care Team (Late st Contact Info) Description 08/31/2023 3:00 PM EST Home Visit [facility] [place], [facility] [address] [place] [address] Camron Rubio PA-C [address] [place] [address] 09/03/2023 1:20 PM EST Pharmacy Family Practice [address] [place] [address] 293 [place] [address] College, Pharmacist [address] [place] [address] 09/03/2023 1:40 PM EST Office Visit Family Practice [address] [place] [address] 293 [place] [address] Gay López, 293 [place] [address] 2023 10:00 AM EST Office Visit Pulmonary Medicine, [facility] [address] [place] [address] Grey Green MD [address] [place] [address] 10/18/2023 4:00 PM EST Home Visit [facility], [facility] [address] [place] [address] Danitza Salinas, RN [address] [place] [address] 03/28/2024 2:00 PM EDT Office Visit Rheumatology [facility] [place] [address] [employer] [place] [address] Yudi Horowitz CRNP [address] [email or web address] [place] [address] 07/25/2024 11:40 AM EST Office Visit [facility] Disorders Ctr [facility] [address] [place] [phone] Marnie Hartman DO [address] [place] [address] Scheduled Procedures Name Priority Associated Diagnoses Date/Ti [...] Additional history exists CKD PHOS USE SMARTSET 46766 07/02/202306/23, 07/01/2021, 03/22/2020 Diabetic Eye Exam 07/20/2023 07/20/2022, , 08/26/2020, Additional history exists DISCUSS TOBACCO CESSATION (REFER TO SMARTSET #3291) 08/26/2023 08/26/2022, 05/27/2022, 02/11/2022, Additional history exists HbA1c 10/15/2023 04/14/2023, 06/23, 02/06/2022, Additional history exists Depression Screening 11/21/2023 11/20/2022 GFR 11/26/2023 05/27/2023, 03/24, 03/29/2023, Additional history exists DXA Scan 03/11/2024 03/11/2023 CKD HGB USE SMARTSET 21268 03/29/202403/29, 03/29/2023, 12/01/2022, Additional history exists Albumin/Creatinine Ratio 05/31/2024 023, 10/20/2021, 08/11/2017, Additional history exists O2 ASSESSMENT COMPLETED IN PAST YEAR FOR COPD 08/18/2024 08/18/2023 DTaP,Tdap,and Td Vaccines (3 - Td or Tdap) 01/11/2028 01/10/2018, 10/03/2012 Pneumococcal Vaccine: 65+ Years Completed 05/14/2015, 09/11/2009, 07/12/2003 Zoster Vaccines Completed 03/22/2020, 08/30/2019 COLONOSCOPY-EVERY 5 YRS AGES 18-100 Discontinued 11/19/2020, 11/19/2020, 05/16/2015, Additional history exists Alpha-1 Antitrypsin Completed 03/11/2022 VITAMIN D LEVEL ONCE IN A LIFETIME-USE SMARTSET# [id number] Completed 03/29/2023, 05/12/2014 Influenza Vaccine (FLU shot) Completed 05/18/2023, 05/27/2022, 06/23/2021, Additional history exists GARDASIL-HPV IMMUNIZATION SERIES Aged Out No longer eligible based on patient's age to complete this topic MENINGOCOCCAL (MENACTRA/MENVEO) Aged Out No longer eligible based on patient's age to complete this topic documented as of this encounter Medical Devices Not on filedocumented as of this encounter Advance Directives Latest Code Status [...] the patient have Health Care Power of Variety Lathe Operator? No Full Code 08/14/2010 2:57 PM 08/15/2010 2:24 PM Thi s order reflects the patients wishes and were consensually agreed upon.
--- OUTSIDE RECORDS SUMMARY | 2023-08-28 08:32 | External Medical Summary | Summary of Care ---
Author Name Unknown Organization [facility] Address [address] [facility] [place] [address] Phone [phone] Care Team Providers Care Ginseng Farmer Name Role Phone Unavailable Primary Care Provider Unavailabl e Reason for Visit * Reason Comments Dosage Adjustment Via Phone (anticoag Cl inic) Encounter Details Date Type Department Care Team (Latest Contact Info) Description 08/24/2023 6:30 AM EST Anticoagulation Pharmacy Call Center [phone] [place] [address] 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 Last Assessment & Plan: Cognition at baseline -not tolerating Aricept HTN (hypertension) 09/28/2012 Atherosclerosis of inaja artery of extremity Obstructive sleep apnea 01/13/2010 [...] as of this encounter Progress Notes * Sterling Steele CPhT - 08/24/2023 10:06 AM EST Contacts Type Contact Phone/Fax 08/24/2023 07:31 AM EST Fax (Incoming) 08/24/2023 10:04 AM EST Phone (Outgoing) Kaleb Oakley Renee (Self) [phone] (H) Left Message Subjective Advised patient to contact Anticoagulation Clinic if any unusual bruising or bleeding, recent illness, changes in medication, or questions/concerns. PT/INR results, Coumadin dose instructions, and next PT/INR date communicated as noted by Pharmacist: Yes Sterling Steele CPhT 08/24/2023, 10:06 AM * Layne Fuller RPh - 08/24/2023 8:42 AM EST Coumadin Clinic (region specific) Objective Current Warfarin Dose As of 08/24/2023 Warfarin maintenance plan: 2.5 mg (5 mg x 0.5) every day INR Result As of 08/24/2023 INR goal: 2.0-3.0 INR used for dosin.4 (08/23/2023) Assessment & Plan Warfarin Plan As of 08/24/2023 Full warfarin instructions: 2.5 mg every day No change documented: Layne Fuller RPh Next INR check: 08/30/2023 Repeat PT/INR in 1 week(s) Weekly dose: not changed Additional Dosing Information: Description Home machine (prev GML) Tech to contact patient with dose instructions as noted. Layne Fuller RPh 08/24/2023, 8:42 AM * Vanessa Myles creel operator - 08/24/2023 7:31 AM EST Patient Phone Numbers Received fax from [employer] for today's INR result of 2.4 Thank you, Vanessa Myles Engineering Designer [facility] 08/24/2023,7:31 AM documented in this encounter Plan of Treatment Upcoming Encounters Date Type Department Care Team (Late st Contact Info) Description 09/03/2023 1:20 PM EST Pharmacy Family Practice 65 [facility] 293 [place] [address] College, Pharmacist [address] [address] 09/03/2023 1:40 PM EST Office Visit Family Practice [address] [place] [address] 293 [place] [address] Gay López, 293 [place] [address] 2023 10:00 AM EST Office Visit Pulmonary Medicine, [facility] 132 [facility] [place] [address] Grey Green MD [address] [facility] [address] 10/18/2023 4:00 PM EST [facility] Visit [facility] 132 [facility] [place] [address] Danitza Salinas, RN 132 [facility] [place] [address] 03/28/2024 2:00 PM EDT Office Visit Rheumatology [place] [phone] [facility] [place], [place] [address] Yudi Horowitz CRNP [facility] [address] 07/25/2024 11:40 AM EST Office Visit Sleep Disorders Ctr [facility] [address] [place] [address] Marnie Hartman DO [address] [place] [address] Scheduled Procedures Name Priority Associated Diagnoses Date/Ti [...] Additional history exists CKD PHOS USE SMARTSET 63122 07/02/202306/23, 07/01/2021, 03/22/2020 Diabetic Eye Exam 07/20/2023 07/20/2022, , 08/26/2020, Additional history exists DISCUSS TOBACCO CESSATION (REFER TO SMARTSET #6211) 08/26/2023 08/26/2022, 05/27/2022, 02/11/2022, Additional history exists HbA1c 10/15/2023 04/14/2023, 06/23, 02/06/2022, Additional history exists Depression Screening 11/21/2023 11/20/2022 GFR 11/26/2023 05/27/2023, 03/24, 03/29/2023, Additional history exists DXA Scan 03/11/2024 03/11/2023 CKD HGB USE SMARTSET 54514 03/29/202403/29, 03/29/2023, 12/01/2022, Additional history exists Albumin/Creatinine [...] D LEVEL ONCE IN A LIFETIME-USE SMARTSET# 33088 Completed 03/29/2023, 05/12/2014 Influenza Vaccine (FLU shot) [...] Date/Time Associated Diagnosis Comments OUTSIDE LAB-PT/INR Routine 08/23/2023 documented in this encounter Results * OUTSIDE LAB-PT/INR (08/23/2023) INR-OUTSIDE LAB 2.4 08/23/2023 History Per Patient LABORATORY documented in this encounter Visit Diagnoses 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 No Full Code 08/14/2010 2:57 PM 08/15/2010 2:24 PM Thi s order reflects the patients wishes and were consensually agreed upon.
--- OUTSIDE RECORDS SUMMARY | 2023-08-28 08:32 | External Medical Summary | Summary of Care ---
Author Name Unknown Organization [facility] Address [address] [facility] [place] [address] Phone [phone] Care Team Providers Care Program Engagement Director Name Role Phone Unavailable Primary Care Provider Unavailabl e Reason for Visit * Reason Comments [facility]: Maintenance Encounter Details Date Type Department Care Team (Late st Contact Info) Description 08/18/2023 4:00 PM EST Home Visit [facility], [facility] [address] [place] [address] Danitza Salinas RN [address] [place] [address] Allergies Active Allergy Reactions Criticality Noted Date Comments Propoxyphene N-Acetaminophen 06/22/2012 N/V Fentanyl Nausea/vomiting 10/15/2009 Oxycodone High 01/21/2023 Other reaction(s): vomiting Oxycodone-Acetaminophen Nausea/vomiting High 010 documented as of this encounter (statuses as of 08/18/2023) Medications Medication Sig Dispensed Refills Start Date [...] Patient not taking.Reported on 08/18/2023 oxygen IN GASIndications:Clinical Review Nurse bobbi respiratory failure with hypoxia (HCC),Centrilobular emphysema [...] 90 Tablet 2 11/13/2022 4 Active Umeclidinium [place] 62.5 MCG/ACT Inhalation Aerosol Powder Breath Activated (INCRUSE ellipta)Indications :COPD, group B, by GOLD 2017 classification ([facility]) INHALE ONE PUFF BY MOUTH EVERY [...] 12 Hour (Ranexa)Indications :Coronary artery disease of [place] artery of [place] heart with stable angina pectoris ([facility]) TAKE ONE TABLET BY MOUTH TWICE [...] hemoglobin A1c goal of less than 8.0% ([facility]) Inject 15 Units under the skin [...] as of this encounter (statuses as of 08/18/2023) Active Problems Problem Noted Date Diagnosed Date [...] artery disease of n ative artery of [place] heart with stable angina pectoris 01/30/2017 Overview: More specific. 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 Last Assessment & Plan: Cognition at baseline -not tolerating Aricept HTN (hypertension) 09/28/2012 Atherosclerosis of [place] artery of extremity Obstructive sleep apnea 01/13/2010 Overview: ICD-10 update of inactive term Last Assessment & Plan: Compliant with CPAP Old myocardial infarction 10/25/2009 Lumbar disc disorder with myelopathy 10/15/2009 Overview: Fentanyl patch caused severe nausea and vomiting Failed ultram Oxycodone caused nausea Preglaucoma 08/29/1998 History of TIA (transient ischemic attack) documented as of this encounter (statuses as of 08/18/2023) Resolved Problems Problem Noted Date Diagnosed Date [...] as of this encounter (statuses as of 08/18/2023) Immunizations Name Administration Dates Next Due COVID-19 [...] on file documented as of this encounter Last Filed Vital Signs Vital Sign Reading Time Taken Comments Blood Pressure 146/70 08/18/2023 2:41 PM EST Pulse 60 08/18/2023 2:41 PM EST Temperature 36.1 C (97 F) 08/18/2023 2:41 PM EST Respiratory Rate 18 08/18/2023 2:41 PM EST Oxygen Saturation 95% 08/18/2023 2:41 PM EST Inhaled Oxygen Concentration - - Weight - - Height - - Body Mass Index - - documented in this encounter Functional Status Functional Status Response [...] as of this encounter Progress Notes * Danitza Salinas, RN - 08/18/2023 1:49 PM EST [facility] [employer] Instructor Visit Date: 08/18/2023 Time: 1:49 PM Name: Kaleb Oakley : 1945 Current Concerns: Pt seen for return RNCM visit Switching PCP to [facility] Forward - has initial appt with Dr. López on 09/03 Has some mild redness and pain of base of left 2nd toe - feels he may have stubbed his toe on the bed He is going next week to see director prospect at [facility] foot care Looks as though base of toenail is loose also Will keep clean and apply triple abx ointment Will continue to monitor and alert GA if redness or pain worsens Vitals stable Lungs clear bilaterally Wears oxygen at 3 l/min with CPAP qHS He does notice his breathing is slowly getting worse - he states he is going to wear his oxygen more during the day because he level does drop down into 80's when up moving around Sees salvage clerk Dr. Green on 09/09 Physical Exam: BP 146/70 | Pulse 60 | Temp 36.1 C (97 F) | Resp 18 | SpO2 95% Pain 0 Physical Exam Constitutional: General: He is not in acute distress. Cardiovascular: Rate and Rhythm: Normal rate and regular rhythm. Pulses: Normal pulses. Heart sounds: Normal heart sounds. Pulmonary: Effort: Pulmonary effort is normal. Breath sounds: Normal breath sounds. Abdominal: General: Bowel sounds are normal. Palpations: Abdomen is soft. Skin: General: Skin is warm and dry. Neurological: Mental Status: He is alert and oriented to person, place, and time. Problems/Symptoms: Review of Systems Constitutional: Positive for fatigue. Eyes: Negative. Respiratory: Positive for shortness of breath (ORONA - at baseline). Cardiovascular: Negative. Gastrointestinal: Negative. Endocrine: Negative. Genitourinary: Negative. Musculoskeletal: Positive for arthralgias, back pain and gait problem (poor balance). Skin: Mild redness at base of left 2nd toe Psychiatric/Behavioral: Negative. Medication Reconciliation: (See medication list) Does patient take medications as ordered: Yes Patient Well Being: PHQ2/9: Myc Visit Accident Related Question Question 08/14/2023 11:53 PM EST - Filed by Patient Is this visit related to an accident? (i.e work, motor vehicle) No No change in living situation Denies falls [facility]-10 Completed this Visit: No. Routine visit and No falls since last visit Advanced Care Planning: No documentation, acp on file. Patient's Goals of Care: Stay out of hospital Less back pain Get stronger Reinforcement/Education: Educated on home safety: Create a fall proof home Clear floors of clutter, loose wires, throw rugs, and cords. Make sure halls, stairways, and entrances are well lit. Install a nightlight in your bedroom, hallway and bathroom. Install grab bars or handrails in the bathroom and on stairs. Use a non-skid tub/shower mat. Avoid climbing on a chair; instead use a step stool with a high handrail. Keep sidewalks and steps in good repair Keep steps and sidewalks free of snow and ice. Using aids to support and prevent falls If you have poor balance or have fallen in the past, consider additional support such as a cane or walker. Use a cane with good support and that is the proper length for you. Use a walker if a cane doesnt provide enough support. Avoid medications that increase the risk of falling by causing dizziness, change in sensation or slowed reflexes. Certain medicines may cause falls - blood pressure pills, heart medicines, water pills, or sleepingpills. Be sure to understand each medicine that you are taking and any side effects that may occur. Improve your balance and flexibility with muscle strengthening exercises. Ask your health care provider for some exercises that will be right for you. Reinforced safety education and fall prevention. and Reinforced medication regimen. Timing., Dosing., and Purspose. Treatment/Plan: Continue medications as prescribed Keep all upcoming MD appointment Fall precautions Fluids encouraged Blood sugars prn Aspercreme with Lidocaine for pain Uses cbd gummies for pain Home Interventions Provided: Home Intervention: Other; evaluation Reinforced current Plan of Care, including self-management and medication regimen Patient's 'Red Flags': Increased weakness Change in mental status/confusion Uncontrolled pain Patient Needs to Remember: Call [facility] at with any new or worsening health concerns or problems, red flag symptoms. Referrals Needed: Other none Follow Up: Is there cellular connectivity/connectivity in the home? Yes Does the patient have internet in the home? Yes Patient encouraged to call the intake phone number for all urgent but not emergent issues. Is the patient new to [facility] within the last 30 days? No, Assess appropriateness for upcoming telehealth visits. Cancel telehealth visits & schedule home visit with care production team member(s)as indicated. Provider is in agreement with Plan of Care: Yes Scheduled to follow up with patient in one month with provider, following month with RNCM. Danitza Salinas RN 08/18/2023 1:49 PM documented in this encounter Plan of Treatment Upcoming Encounters Date Type Department Care Team (Late st Contact Info) Description 08/24/2023 6:30 AM EST Anticoagulation Pharmacy Call Center WB [address] [facility] [place] [address] [facility] 58 60 [facility] [address] 09/03/2023 1:20 PM EST Pharmacy Family Practice 65 [facility] 293 [facility] [place] [phone] College, Pharmacist [address], [place] [address] 09/03/2023 1:40 PM EST Office Visit Family Practice 65 [facility] [phone] Gay López, DO 293 [facility] [address] 2023 10:00 AM EST Office Visit Pulmonary Medicine, [facility] 132 [facility] [place] [address] Grey Green MD [address] [place] [address] 10/18/2023 4:00 PM EST Home Visit [facility], [facility] 132 [facility] [place] [address] Danitza Salinas RN 132 [facility] [place] [address] 03/28/2024 2:00 PM EDT Office Visit Rheumatology [place] [id number] [facility] [place] [place] [address] Yudi Horowitz CRNP [facility]0 [facility] [place] [place] [address] 07/25/2024 11:40 AM EST Office Visit [facility]tr [facility] [phone] Marnie Hartman, 132 [facility] [place] [address] Scheduled Procedures Name Priority Associated Diagnoses Date/Ti me COLONOSCOPY FLEXIBLE PROXIMAL DIAGNOSTIC Recall History of colon polyps Health Maintenance Due Date Last Done Comments Hepatitis B (1 of 3 - Risk 3-dose series) 2004 COLONOSCOPY-EVERY 2 YRS AGES 18-100 11/19/2022 11/19/2020, 11/19/2020, 05/16/2015, Additional history exists Diabetic Foot Exam 02/06/2023 02/06/2022, 0 08/30/2019, 08/18/2018, Additional history exists COVID-19 Vaccine (2022- season) 2023 12/23/2021, 07/24/2021, 07/24/2021, Additional history exists CKD PHOS USE SMARTSET 71337 07/02/202306/23, 07/01/2021, 03/22/2020 Diabetic Eye Exam 07/20/2023 07/20/2022, , 08/26/2020, Additional history exists DISCUSS TOBACCO CESSATION (REFER TO SMARTSET #[id number]) 08/26/2023 08/26/2022, 05/27/2022, 02/11/2022, Additional history exists HbA1c 10/15/2023 04/14/2023, 06/23, 02/06/2022, Additional history exists Depression Screening 11/21/2023 11/20/2022 GFR 11/26/2023 05/27/2023, 03/24, 03/29/2023, Additional history exists DXA Scan 03/11/2024 03/11/2023 CKD HGB USE SMARTSET [id number] 03/29/202403/29, 03/29/2023, 12/01/2022, Additional history exists Albumin/Creatinine Ratio 05/31/2024 023, 10/20/2021, 08/11/2017, Additional history exists O2 ASSESSMENT COMPLETED IN PAST YEAR FOR COPD 07/22/2024 08/18/2023 DTaP,Tdap,and Td Vaccines (3 - Td or Tdap) 01/11/2028 01/10/2018, 10/03/2012 Pneumococcal Vaccine: 65+ Years Completed 05/14/2015, 09/11/2009, 07/12/2003 Zoster Vaccines Completed 03/22/2020, 08/30/2019 COLONOSCOPY-EVERY 5 YRS AGES 18-100 Discontinued 11/19/2020, 11/19/2020, 05/16/2015, Additional history exists Alpha-1 Antitrypsin Completed 03/11/2022 VITAMIN D LEVEL ONCE IN A LIFETIME-USE SMARTSET# [id number] Completed 03/29/2023, 05/12/2014 Influenza Vaccine (FLU shot) [...] the patient have Health Care Power of Assembling Inspector? No Full Code 08/14/2010 2:57 PM 08/15/2010 2:24 PM Thi s order reflects the patients wishes and were consensually agreed upon.
--- OUTSIDE RECORDS SUMMARY | 2023-08-28 08:32 | External Medical Summary | Summary of Care ---
Author Name Unknown Organization [facility] Address [address] [facility] [place] [address] Phone [phone] Care Team Providers Care Tubing Supervisor Name Role Phone Unavailable Primary Care Provider Unavailabl e Encounter Details Date Type Department Care Team (Late st Contact Info) Description 08/09/2023 Result Scan Unspecified Department Layne Fuller, [facility] [address] [place] [address] <No scans attached> Allergies Active Allergy Reactions Criticality Noted Date Comments Propoxyphene N-Acetaminophen 06/22/2012 N/V Fentanyl Nausea/vomiting 10/15/2009 Oxycodone High 01/21/2023 Other reaction(s): vomiting Oxycodone-Acetaminophen Nausea/vomiting High 010 documented as of this encounter (statuses as of 08/09/2023) Medications Medication Sig Dispensed Refills Start Date [...] 1 Each 0 04/09/2022 Active oxygen IN GASIndications: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 Player bobbi respiratory failure with hypoxia (HCC),Centrilobular emphysema [...] 90 Tablet 2 11/13/2022 4 Active Umeclidinium [place] 62.5 MCG/ACT Inhalation Aerosol Powder Breath Activated (INCRUSE ellipta)Indications :COPD, group B, by GOLD 2017 classification ([facility]) INHALE ONE PUFF BY MOUTH EVERY DAY [...] 12 Hour (Ranexa)Indications :Coronary artery disease of [place] artery of [place] heart with stable angina pectoris ([facility]) TAKE ONE TABLET BY MOUTH TWICE A [...] hemoglobin A1c goal of less than 8.0% ([facility]) Inject 15 Units under the skin in the morning and 15 Units at noon and 15 Units before bedtime. With meals. DISPENSE 5 vials. 0 05/20/2023 Active Memantine HCl 5 MG Oral Tablet (Namenda)Indication s:Dementia in Alzheimer's disease ([facility]) TAKE ONE TABLET BY MOUTH IN THE MORNING AND ONE TABLET BEFORE BEDTIME 60 Tablet 5 06/19/2023 4 Active Pantoprazole Sodium 40 MG Oral Tablet Delayed Release (Protonix)Indicatio ns:Gastroesophageal reflux disease TAKE ONE TABLET BY MOUTH EVERY DAY 90 Tablet 2 07/19/2023 4 Active documented as of this encounter (statuses as of 08/09/2023) Active Problems Problem Noted Date Diagnosed Date [...] artery disease of n ative artery of [place] heart with stable angina pectoris 01/30/2017 Overview: More specific. 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 Last Assessment & Plan: Cognition at baseline -not tolerating Aricept HTN (hypertension) 09/28/2012 Atherosclerosis of [place] artery of extremity Obstructive sleep apnea 01/13/2010 Overview: ICD-10 update of inactive term Last Assessment & Plan: Compliant with CPAP Old myocardial infarction 10/25/2009 Lumbar disc disorder with myelopathy 10/15/2009 Overview: Fentanyl patch caused severe nausea and vomiting Failed ultram Oxycodone caused nausea Preglaucoma 08/29/1998 History of TIA (transient ischemic attack) documented as of this encounter (statuses as of 08/09/2023) Resolved Problems Problem Noted Date Diagnosed Date [...] as of this encounter (statuses as of 08/09/2023) Immunizations Name Administration Dates Next Due COVID-19 [...] Care Team (Late st Contact Info) Description 08/10/2023 6:30 AM EST Anticoagulation Pharmacy Call Center [address] [place] [address] [facility], [facility] 58 60 [facility] [place], [place] [address] 08/18/2023 4:00 PM EST [facility] Visit [facility], [facility] 132 [facility] [place] [address] Danitza Salinas, RN 132 [facility] [address] 09/03/2023 1:20 PM EST Pharmacy Family Practice [address] [place] [address] 293 [place] [phone] College, Pharmacist [address] [place] [address] 09/03/2023 1:40 PM EST Office Visit Family Practice [address] [place] [address] 293 [place] [phone] Gay López DO 293 [place] [address] 2023 10:00 AM EST Office Visit Pulmonary Medicine, [facility] 132 [facility] [address] Grey Green MD [address] [facility] [address] 03/28/2024 2:00 PM EDT Office Visit Rheumatology [place] [phone] [place] [address] Yudi Horowitz CRNP [facility]0 [place] [address] 07/25/2024 11:40 AM EST Office Visit [facility] Disorders Ctr [facility] 132 [facility] [place] [phone] Marnie Hartman, DO [address] [place] [address] Scheduled Procedures Name Priority Associated Diagnoses Date/Ti [...] Additional history exists CKD PHOS USE SMARTSET 47259 07/02/202306/23, 07/01/2021, 03/22/2020 Diabetic Eye Exam 07/20/2023 [...] Scan 03/11/2024 03/11/2023 CKD HGB USE SMARTSET [id number] 03/29/202403/29, 03/29/2023, 12/01/2022, Additional history exists Albumin/Creatinine Ratio 05/31/2024 023, 10/20/2021, 08/11/2017, Additional history exists DTaP,Tdap,and Td Vaccines (3 - Td or Tdap) 01/11/2028 01/10/2018, 10/03/2012 Pneumococcal Vaccine: 65+ Years Completed 05/14/2015, 09/11/2009, 07/12/2003 Zoster Vaccines Completed 03/22/2020, 08/30/2019 COLONOSCOPY-EVERY 5 YRS AGES 18-100 Discontinued 11/19/2020, 11/19/2020, 05/16/2015, Additional history exists Alpha-1 Antitrypsin Completed 03/11/2022 VITAMIN D LEVEL ONCE IN A LIFETIME-USE SMARTSET# [id number] Completed 03/29/2023, 05/12/2014 Influenza Vaccine (FLU shot) [...] Date/Time Associated Diagnosis Comments OUTSIDE LAB RESULTS 08/09/2023 documented in this encounter Results * OUTSIDE LAB RESULTS (08/09/2023) 08/09/2023 Layne Fuller [facility] LABORATORY documented in this encounter Advance Directives Latest Code Status on File Code Status Date Activated Date Inactivated Comments Full Code 08/10/2022 7:57 AM 08/10/2022 12:46 PM T his order reflects the patients wishes and were [...] the patient have Health Care Power of Bristle Machine Operator? No Full Code 08/14/2010 2:57 PM 08/15/2010 2:24 PM Thi s order reflects the patients wishes and were consensually agreed upon.
--- OUTSIDE RECORDS SUMMARY | 2023-08-28 08:32 | External Medical Summary | Summary of Care ---
Author Name Unknown Organization [facility] Address [address] [facility] [place] [address] Phone [phone] Care Team Providers Care Customer Contact Sales Associate Name Role Phone Unavailable Primary Care Provider Unavailabl e Reason for Visit * Reason Comments Dosage Adjustment Via Phone (anticoag Cl inic) Encounter Details Date Type Department Care Team (Latest Contact Info) Description 08/03/2023 6:30 AM EST Anticoagulation Pharmacy Call Center [address] [place] [address] 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 respiratory failure with hypoxia (HCC),Centrilobular emphysema [...] 90 Tablet 2 11/13/2022 4 Active Umeclidinium [place] 62.5 MCG/ACT Inhalation Aerosol Powder Breath Activated (INCRUSE ellipta)Indications :COPD, group B, by GOLD 2017 classification ([facility]) INHALE ONE PUFF BY MOUTH EVERY DAY [...] 12 Hour (Ranexa)Indications :Coronary artery disease of [place] artery of [place] heart with stable angina pectoris ([facility]) TAKE ONE TABLET BY MOUTH TWICE A [...] hemoglobin A1c goal of less than 8.0% ([facility]) Inject 15 Units under the skin in [...] as of this encounter (statuses as of 08/03/2023) Active Problems Problem Noted Date Diagnosed Date [...] artery disease of n ative artery of al[place] heart with stable angina pectoris 01/30/2017 Overview: More specific. 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 Last Assessment & Plan: Cognition at baseline -not tolerating Aricept HTN (hypertension) 09/28/2012 Atherosclerosis of [place] artery of extremity Obstructive sleep apnea 01/13/2010 Overview: ICD-10 update of inactive term Last Assessment & Plan: Compliant with CPAP Old myocardial infarction 10/25/2009 Lumbar disc disorder with myelopathy 10/15/2009 Overview: Fentanyl patch caused severe nausea and vomiting Failed ultram Oxycodone caused nausea Preglaucoma 08/29/1998 History of TIA (transient ischemic attack) documented as of this encounter (statuses as of 08/03/2023) Resolved Problems Problem Noted Date Diagnosed Date [...] as of this encounter (statuses as of 08/03/2023) Immunizations Name Administration Dates Next Due COVID-19 [...] as of this encounter Progress Notes * Cindi Gonsalez, solar manufacturer's representative - 08/03/2023 8:31 AM EST Contacts Type Contact Phone/Fax 08/03/2023 08:29 AM EST Phone (Outgoing) Kaleb Oakley (Self) [phone] (H) Left Message Subjective Advised patient to contact Anticoagulation Clinic if any unusual bruising or bleeding, recent illness, changes in medication, or questions/concerns. PT/INR results, Coumadin dose instructions, and next PT/INR date communicated as noted by Pharmacist: Yes SHIKHA HARRIS 08/03/2023, 8:31 AM * Paris Wilkes RPh - 08/03/2023 8:08 AM EST Images from the original note were not included. Coumadin Clinic (region specific) Objective Current Warfarin Dose As of 08/03/2023 Warfarin maintenance plan: 5 mg (5 mg x 1) every Mon; 2.5 mg (5 mg x 0.5) all other days INR Result As of 08/03/2023 INR goal: 2.0-3.0 INR used for dosin.4 (08/02/2023) Assessment & Plan Warfarin Plan As of 08/03/2023 Full warfarin instructions: 08/03: Hold; 08/04: Hold; Otherwise 2.5 mg every day Next INR check: 08/09/2023 Repeat PT/INR in 1 week(s) Weekly dose: decreased Additional Dosing Information: Description Home machine (prev GML) Tech to contact patient with dose instructions as noted. Paris Wilkes RPh 08/03/2023, 8:08 AM JOSE * Rona Garcia PHARM Tech - 08/03/2023 6:56 AM EST Received a fax from [employer] with INR result from 08/02/23. Patient usually uses GML, does still havea GML appointment scheduled for next week. INR = 4.4 Thank you, Rona Garcia Sueding Machine Tender [facility] ([facility]) 08/03/2023,6:57 AM documented in this encounter Plan of Treatment Upcoming Encounters Date Type Department Care Team (Late st Contact Info) Description 08/10/2023 6:30 AM EST Anticoagulation Pharmacy Call Center WB [phone] [facility] [place] [address] [facility], [facility] 58 60 [facility] [place] [address] 08/18/2023 4:00 PM EST [facility], [facility] 132 [facility] [place] [address] Danitza Salinas RN 132 [facility] [place] [address] 09/03/2023 1:20 PM EST Pharmacy Family Practice [address] [place] [address] 293 [facility], [place] [address] College, Pharmacist [address] [place] [address] 09/03/2023 1:40 PM EST Office Visit Family Practice [address] [place] [address] 293 [facility] [address] Gay López DO 293 [place] [address] 2023 10:00 AM EST Office Visit Pulmonary Medicine, [facility] 132 [facility] [place] [address] Grey Green MD [address] [place] [id number] 03/28/2024 2:00 PM EDT Office Visit Rheumatology [place] [phone] [place] [address] Yudi Horowitz CRNP [address] [place] [address] 07/25/2024 11:40 AM EST Office Visit Sleep Disorders Ctr Aj Zacarias [place] [address] [place] [phone] Marnie Hartman, [address] [place] [address] Scheduled Procedures Name Priority Associated Diagnoses Date/Ti [...] Additional history exists CKD PHOS USE SMARTSET 94179 07/02/202306/23, 07/01/2021, 03/22/2020 Diabetic Eye Exam 07/20/2023 [...] Scan 03/11/2024 03/11/2023 CKD HGB USE SMARTSET 56529 03/29/202403/29, 03/29/2023, 12/01/2022, Additional history exists Albumin/Creatinine Ratio 05/31/2024 023, 10/20/2021, 08/11/2017, Additional history exists DTaP,Tdap,and Td Vaccines (3 - Td or Tdap) 01/11/2028 01/10/2018, 10/03/2012 Pneumococcal Vaccine: 65+ Years Completed 05/14/2015, 09/11/2009, 07/12/2003 Zoster Vaccines Completed 03/22/2020, 08/30/2019 COLONOSCOPY-EVERY 5 YRS AGES 18-100 Discontinued 11/19/2020, 11/19/2020, 05/16/2015, Additional history exists Alpha-1 Antitrypsin Completed 03/11/2022 VITAMIN D LEVEL ONCE IN A LIFETIME-USE SMARTSET# [id number] Completed 03/29/2023, 05/12/2014 Influenza Vaccine (FLU shot) [...] Date/Time Associated Diagnosis Comments OUTSIDE LAB-PT/INR Routine 08/02/2023 documented in this encounter Results * OUTSIDE LAB-PT/INR (08/02/2023) INR-OUTSIDE LAB 4.4 History Per Patient LABORATORY documented in this encounter Visit Diagnoses Diagnosis Anticoagulation management encounter- Primary Encounter for therapeutic drug monitoring documented in this encounter Advance Directives Latest [...] the patient have Health Care Power of Cloth Grader? No Full Code 08/14/2010 2:57 PM 08/15/2010 2:24 PM Thi s order reflects the patients wishes and were consensually agreed upon.
--- OUTSIDE RECORDS SUMMARY | 2023-08-28 08:32 | External Medical Summary | Summary of Care ---
Author Name Unknown Organization [facility] Address [address] [facility] [place] [place] [address] Phone [phone] Care Team Providers Care Trauma Manager Name Role Phone Unavailable Primary Care Provider Unavailabl e Encounter Details Date Type Department Care Team (Late st Contact Info) Description 08/23/2023 Result Scan Unspecified Department Layne Fuller, 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 respiratory failure with hypoxia (HCC),Centrilobular emphysema [...] 90 Tablet 2 11/13/2022 4 Active Umeclidinium [place] 62.5 MCG/ACT Inhalation Aerosol Powder Breath Activated (INCRUSE ellipta)Indications :COPD, group B, by GOLD 2017 classification ([facility]) INHALE ONE PUFF BY MOUTH EVERY DAY [...] 12 Hour (Ranexa)Indications :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 Last Assessment & Plan: Cognition at baseline -not tolerating Aricept HTN (hypertension) 09/28/2012 Atherosclerosis of lime artery of extremity Obstructive sleep apnea 01/13/2010 [...] 1:20 PM EST Pharmacy Family Practice [address], [place] 293 [place] [address] College, Pharmacist [address] [place] [address] 09/03/2023 1:40 PM EST Office Visit Family Practice 65 [facility] 293 [facility], [place] [address] Gay López, DO 293 [place] [address] 2023 10:00 AM EST Office Visit Pulmonary Medicine, [facility] 132 [facility] [place] [address] Grey Green MD [address] [place] [address] 10/18/2023 4:00 PM EST [facility] 132 [facility] [place] [address] Danitza Salinas, RN 132 [facility] [place] [address] 03/28/2024 2:00 PM EDT Office Visit Rheumatology [place] [address] [facility], [place] [address] Yudi Horowitz CRNP [address] [place] [address] [place], [place] [address] 07/25/2024 11:40 AM EST Office Visit Sleep Disorders Ctr [facility] 132 [facility] [place] [phone] Marnie Hartman, 132 [facility] [place] [address] Scheduled Procedures Name Priority Associated Diagnoses Date/Ti [...] Additional history exists CKD PHOS USE SMARTSET 52381 07/02/202306/23, 07/01/2021, 03/22/2020 Diabetic Eye Exam 07/20/2023 07/20/2022, , 08/26/2020, Additional history exists DISCUSS TOBACCO CESSATION (REFER TO SMARTSET #3892) 08/26/2023 08/26/2022, 05/27/2022, 02/11/2022, Additional history exists HbA1c 10/15/2023 04/14/2023, 06/23, 02/06/2022, Additional history exists Depression Screening 11/21/2023 11/20/2022 GFR 11/26/2023 05/27/2023, 03/24, 03/29/2023, Additional history exists DXA Scan 03/11/2024 03/11/2023 CKD HGB USE SMARTSET 96409 03/29/202403/29, 03/29/2023, 12/01/2022, Additional history exists Albumin/Creatinine [...] D LEVEL ONCE IN A LIFETIME-USE SMARTSET# 28073 Completed 03/29/2023, 05/12/2014 Influenza Vaccine (FLU shot) [...] Date/Time Associated Diagnosis Comments OUTSIDE LAB RESULTS 08/23/2023 documented in this encounter Results * OUTSIDE LAB RESULTS (08/23/2023) 08/23/2023 Layne Fuller [facility] LABORATORY documented in this encounter Advance Directives [...] the patient have Health Care Power of Deckhand Fishing Vessel? No Full Code 08/14/2010 2:57 PM 08/15/2010 2:24 PM Thi s order reflects the patients wishes and were consensually agreed upon.
--- OUTSIDE RECORDS SUMMARY | 2023-08-28 08:32 | External Medical Summary | Summary of Care ---
Author Name Unknown Organization [facility] Address [address] [facility] [place] [address] Phone [phone] Care Team Providers Care Can Washer Name Role Phone Unavailable Primary Care Provider Unavailabl e Reason for Visit * Reason Comments Dosage Adjustment Via Phone (anticoag Cl inic) Encounter Details Date Type Department Care Team (Latest Contact Info) Description 08/17/2023 6:30 AM EST Anticoagulation Pharmacy Call Center [address] [place] [address] [facility] 58 60 [facility] [place] [address] Typical atrial flutter (HCC)* Allergies Active Allergy Reactions Criticality Noted Date [...] times daily 200 Each 11 06/23/[address] 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 respiratory failure with hypoxia (HCC),Centrilobular emphysema [...] 90 Tablet 2 11/13/2022 4 Active Umeclidinium [place] 62.5 MCG/ACT Inhalation Aerosol Powder Breath Activated (INCRUSE ellipta)Indications :COPD, group B, by GOLD 2017 classification ([facility]) INHALE ONE PUFF BY MOUTH [...] 12 Hour (Ranexa)Indications :Coronary artery disease of [place] artery of [place] heart with stable angina pectoris ([facility]) TAKE ONE TABLET BY MOUTH [...] hemoglobin A1c goal of less than 8.0% ([facility]) Inject 15 Units under the [...] artery disease of n ative artery of [place] heart with stable angina pectoris 01/30/2017 Overview: More specific. 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 Last Assessment & Plan: Cognition at baseline -not tolerating Aricept HTN (hypertension) 09/28/2012 Atherosclerosis of [place] artery of extremity Obstructive sleep apnea 01/13/2010 [...] as of this encounter Progress Notes * Ambrocio Benitez PHARM Tech - 08/17/2023 10:02 AM EST Contacts Type Contact Phone/Fax 08/17/2023 10:00 AM EST Phone (Outgoing) Kaleb Oakley (Self) [phone] (H) Left Message Subjective PT/INR results, Coumadin dose instructions, and next PT/INR date communicated as noted by Pharmacist: Yes SHIKHA Garcia 08/17/2023, 10:02 AM * Layne Fuller RPh - 08/17/2023 8:41 AM [facility] Objective Current Warfarin Dose As of 08/17/2023 Warfarin maintenance plan: 2.5 mg (5 mg x 0.5) every day INR Result As of 08/17/2023 INR goal: 2.0-3.0 INR used for dosin.3 (08/16/2023) Assessment & Plan Warfarin Plan As of 08/17/2023 Full warfarin instructions: 2.5 mg every day No change documented: Layne Fuller RPh Next INR check: 08/23/2023 Repeat PT/INR in 1 week(s) Weekly dose: not changed Additional Dosing Information: Description Home machine (prev GML) Tech to contact patient with dose instructions as noted. Layne Fuller RPh 08/17/2023, 8:41 AM * Cindi Gonsalez PHARM Tech - 08/17/2023 7:20 AM EST Incoming fax from [facility], patient self tested 08/16/23. INR-2.3. Thank you, Mary Gonsalez Business Center Representative [facility] ([facility]) ( [facility]) 08/17/2023, 7:20 AM documented in this encounter Plan of Treatment Upcoming Encounters Date Type Department Care Team (Late st Contact Info) Description 08/18/2023 4:00 PM EST [facility] Visit [facility] 132 [facility] [place] [address] Danitza Salinas, RN 132 [facility] [place] [address] 08/24/2023 6:30 AM EST Anticoagulation Pharmacy Call Center WB [address] [facility] [place] [address] [facility], [facility] 58 60 [facility] [place] [address] 09/03/2023 1:20 PM EST Pharmacy Family Practice [facility] 293 [place] [phone] College, Pharmacist [address] [place] [address] 09/03/2023 1:40 PM EST Office Visit Family Practice [address] [place] [address] 293 [place] [phone] Gay López DO 293 [facility] [place] [address] 2023 10:00 AM EST Office Visit Pulmonary Medicine, [facility] 132 [facility] [place] [address] Grey Green MD [address] [place] [address] 03/28/2024 2:00 PM EDT Office Visit Rheumatology [place] [address] [facility] [place] [address] Yudi Horowitz CRNP [facility] [place] [address] 07/25/2024 11:40 AM EST Office Visit Sleep Disorders Ctr Aj [facility] [address] [place] [address] Marnie Hartmanaret, [address] [place] [address] Scheduled Procedures Name Priority Associated Diagnoses Date/Ti [...] Additional history exists CKD PHOS USE SMARTSET 93412 07/02/202306/23, 07/01/2021, 03/22/2020 Diabetic Eye Exam 07/20/2023 07/20/2022, , 08/26/2020, Additional history exists DISCUSS TOBACCO CESSATION (REFER TO SMARTSET #2890) 08/26/2023 08/26/2022, 05/27/2022, 02/11/2022, Additional history exists HbA1c 10/15/2023 04/14/2023, 06/23, 02/06/2022, Additional history exists Depression Screening 11/21/2023 11/20/2022 GFR 11/26/2023 05/27/2023, 03/24, 03/29/2023, Additional history exists DXA Scan 03/11/2024 03/11/2023 CKD HGB USE SMARTSET 45844 03/29/202403/29, 03/29/2023, 12/01/2022, Additional history exists Albumin/Creatinine [...] D LEVEL ONCE IN A LIFETIME-USE SMARTSET# 64729 Completed 03/29/2023, 05/12/2014 Influenza Vaccine (FLU shot) [...] Date/Time Associated Diagnosis Comments OUTSIDE LAB-PT/INR Routine 08/16/2023 documented in this encounter Results * OUTSIDE LAB-PT/INR (08/16/2023) INR-OUTSIDE LAB 2.3 08/16/2023 History Per Patient LABORATORY documented in this encounter Visit Diagnoses Diagnosis Typical atrial flutter (HCC)- Primary Atrial flutter documented in this encounter Advance Directives Latest [...] the patient have Health Care Power of Safety Investigator? No Full Code 08/14/2010 2:57 PM 08/15/2010 2:24 PM Thi s order reflects the patients wishes and were consensually agreed upon.
--- OUTSIDE RECORDS SUMMARY | 2023-08-28 08:33 | External Medical Summary | Summary of Care ---
Author Name Unknown Organization [facility] Address [address] [facility] [place] [address] Phone [phone] Care Team Providers Care Kiln Drawer Name Role Phone Unavailable Primary Care Provider Unavailabl e Reason for Visit * Reason Onset Date Comments Protime Testing 07/22/2023 Encounter Details Date Type Department Care Team (Late st Contact Info) Description 07/22/2023 Telephone Family Practice [facility] 132 [facility] [place] [address] Zachariah Duarte DO [address] [place] [place] [address] Protime Testing (/) Allergies Active Allergy Reactions Criticality Noted Date Comments Propoxyphene N-Acetaminophen 06/22/2012 N/V Fentanyl Nausea/vomiting 10/15/2009 Oxycodone High 01/21/2023 Other reaction(s): vomiting Oxycodone-Acetaminophen Nausea/vomiting High 010 documented as of this encounter (statuses as of 07/22/2023) Medications Medication Sig Dispensed Refills Start Date [...] 1 Each 0 04/09/2022 Active oxygen IN GASIndications: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 respiratory failure with hypoxia (HCC),Centrilobular emphysema [...] 90 Tablet 2 11/13/2022 4 Active Umeclidinium [place] 62.5 MCG/ACT Inhalation Aerosol Powder Breath Activated (INCRUSE ellipta)Indications :COPD, group B, by GOLD 2017 classification ([facility]) INHALE ONE PUFF BY MOUTH EVERY DAY [...] 12 Hour (Ranexa)Indications :Coronary artery disease of [place] artery of [place]ka heart with stable angina pectoris ([facility]) TAKE ONE TABLET BY MOUTH TWICE A [...] goal of less than 8.0% ([facility]) Inject 15 Units under the skin in [...] as of this encounter (statuses as of 07/22/2023) Active Problems Problem Noted Date Diagnosed Date [...] artery disease of n ative artery of atka heart with stable angina pectoris 01/30/2017 Overview: More specific. 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 Last Assessment & Plan: Cognition at baseline -not tolerating Aricept HTN (hypertension) 09/28/2012 Atherosclerosis of [place] artery of extremity Obstructive sleep apnea 01/13/2010 Overview: ICD-10 update of inactive term Last Assessment & Plan: Compliant with CPAP Old myocardial infarction 10/25/2009 Lumbar disc disorder with myelopathy 10/15/2009 Overview: Fentanyl patch caused severe nausea and vomiting Failed ultram Oxycodone caused nausea Preglaucoma 08/29/1998 History of TIA (transient ischemic attack) documented as of this encounter (statuses as of 07/22/2023) Resolved Problems Problem Noted Date Diagnosed Date [...] as of this encounter (statuses as of 07/22/2023) Immunizations Name Administration Dates Next Due COVID-19 mRNA, LNP-s, No Pre serve, 2-Dose Series (Moderna) 12/23/2021,07/24/2021,01/10/2021,12/13 COVID-19, mRNA, LNP-s, PF, B ooster, 100mcg/0.5mg (Moderna) 07/24/2021 H1N1 2009 Influenza, IM 10/15/2009 Pneumococcal Conjugate Vacc, 13 Valent (Prevnar) 05/14/2015 Pneumococcal Polysaccharide PPV23 (Pneumovax) 09/11/2009 SEASONAL INFLUENZA, PF, 6 M & Above, IM , (FLULAVAL or FLUZONE) 06/08/2018,06/16/2017 Season Influenza, Quad, PF, Adjuvanted, 65+ Yrs, IM (FLUAD) 05/04/2020 Seasonal Influenza, Quadriva lent Hd (Fluzone Hd) [...] encounter Miscellaneous Notes * Telephone Encounter - Layne Fuller RPh - 07/22/2023 4:28 PM EST Form was completed and e-mailed to Dr Duarte on 07/01/23. Will forward again today if doctor is willing to sign for patient. Layne Fuller [facility], Pharm.D. Clinical Pharmacist [facility] ([facility]) (formerly Telepharmacy) [phone] 07/22/2023,4:29 PM * Telephone Encounter - Layne Caballero LPN - 07/22/2023 4:06 PM EST Pt is technically no longer a Felicia pt, however, stops in office and says that he needs an order for a HOME INR MACHINE. It has to be signed by an MD/DO, it cannot be signed by a PA or LAND RECLAMATION SPECIALIST or a pharmacist apparently. He is between providers right now and want to check out [address] [place]. Can Dr. Duarte sign an order for an INR home machine until he can get in with new PCP? documented in this encounter Plan of Treatment Upcoming Encounters Date Type Department Care Team (Late st Contact Info) Description 07/26/2023 9:10 AM EST Laboratory Lab Mobile Phlebotomy [facility] [address] [place] [address] [facility], [facility] Mobile Home Draw [address] [place] [address] 07/27/2023 6:00 AM EST Anticoagulation Pharmacy Call Center [address] [place] [address] [facility] 58 60 [facility] [place] [address] 08/18/2023 4:00 PM EST [facility] [address] [facility] [place] [address] Danitza Salinas, RN [address] [place] [address] 2023 10:00 AM EST Office Visit Pulmonary Medicine, [facility] [address] [facility] [place] [address] Grey Green [facility] [address] [facility] [address] 03/28/2024 2:00 PM EDT Office Visit Rheumatology [facility] [address] [place] [address] Yudi Horowitz CRNP [address] [place] [address] 07/25/2024 11:40 AM EST Office Visit Sleep Disorders Ctr [facility] [address] [facility] [place] [phone] Marnie Hartman, 132 [facility] [place] [address] Scheduled Procedures Name Priority Associated Diagnoses Date/Ti [...] Additional history exists CKD PHOS USE SMARTSET 09481 07/02/202306/23, 07/01/2021, 03/22/2020 Diabetic Eye Exam 07/20/2023 07/20/2022, , 08/26/2020, Additional history exists O2 ASSESSMENT COMPLETED IN PAST YEAR FOR COPD 08/10/2023 08/10/2022 DISCUSS TOBACCO CESSATION (REFER TO SMARTSET #[id number]) 08/26/2023 08/26/2022, 05/27/2022, 02/11/2022, Additional history exists HbA1c 10/15/2023 04/14/2023, 06/23, 02/06/2022, Additional history exists Depression Screening 11/21/2023 11/20/2022 GFR 11/26/2023 05/27/2023, 03/24, 03/29/2023, Additional history exists DXA Scan 03/11/2024 03/11/2023 CKD HGB USE SMARTSET 03633 03/29/202403/29, 03/29/2023, 12/01/2022, Additional history exists Albumin/Creatinine Ratio 05/31/2024 023, 10/20/2021, 08/11/2017, Additional history exists DTaP,Tdap,and Td Vaccines (3 - Td or Tdap) 01/11/2028 01/10/2018, 10/03/2012 Pneumococcal Vaccine: 65+ Years Completed 05/14/2015, 09/11/2009, 07/12/2003 Zoster Vaccines Completed 03/22/2020, 08/30/2019 COLONOSCOPY-EVERY 5 YRS AGES 18-100 Discontinued 11/19/2020, 11/19/2020, 05/16/2015, Additional history exists Alpha-1 Antitrypsin Completed 03/11/2022 VITAMIN D LEVEL ONCE IN A LIFETIME-USE SMARTSET# [id number] Completed 03/29/2023, 05/12/2014 Influenza Vaccine (FLU shot) [...] the patient have Health Care Power of Television Analyzer? No Full Code 08/14/2010 2:57 PM 08/15/2010 2:24 PM Thi s order reflects the patients wishes and were consensually agreed upon.
--- OUTSIDE RECORDS SUMMARY | 2023-08-28 08:33 | External Medical Summary | Summary of Care ---
Author Name Unknown Organization [facility] Address [address] [facility] [place] [address] Phone [phone] Care Team Providers Care Junior Qa Analyst Name Role Phone Unavailable Primary Care Provider Unavailabl e Reason for Visit * Reason Onset Date Comments Follow Up 07/27/2023 Encounter Details Date Type Department Care Team (Late st Contact Info) Description 07/27/2023 Telephone Interventional [facility] Center, [facility] [address] [place] [address] Wendi Taveras PA-C [address] [place] [address] Follow Up Allergies Active Allergy Reactions Criticality Noted Date Comments Propoxyphene N-Acetaminophen 06/22/2012 N/V Fentanyl Nausea/vomiting 10/15/2009 Oxycodone High 01/21/2023 Other reaction(s): vomiting Oxycodone-Acetaminophen Nausea/vomiting High 010 documented as of this encounter (statuses as of 07/27/2023) Medications Medication Sig Dispensed Refills Start Date [...] 1 Each 0 04/09/2022 Active oxygen IN GASIndications: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 respiratory failure with hypoxia (HCC),Centrilobular emphysema [...] 90 Tablet 2 11/13/2022 4 Active Umeclidinium [place] 62.5 MCG/ACT Inhalation Aerosol Powder Breath Activated (INCRUSE ellipta)Indications :COPD, group B, by GOLD 2017 classification ([facility]) INHALE ONE PUFF BY MOUTH EVERY DAY [...] 12 Hour (Ranexa)Indications :Coronary artery disease of [place] artery of [place] heart with stable angina pectoris ([facility]) TAKE ONE TABLET BY MOUTH TWICE A [...] hemoglobin A1c goal of less than 8.0% ([facility]) Inject 15 Units under the skin in [...] as of this encounter (statuses as of 07/27/2023) Active Problems Problem Noted Date Diagnosed Date [...] artery disease of n ative artery of [place] heart with stable angina pectoris 01/30/2017 Overview: More specific. 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 Last Assessment & Plan: Cognition at baseline -not tolerating Aricept HTN (hypertension) 09/28/2012 Atherosclerosis of tang[place]na[place] artery of extremity Obstructive sleep apnea 01/13/2010 Overview: ICD-10 update of inactive term Last Assessment & Plan: Compliant with CPAP Old myocardial infarction 10/25/2009 Lumbar disc disorder with myelopathy 10/15/2009 Overview: Fentanyl patch caused severe nausea and vomiting Failed ultram Oxycodone caused nausea Preglaucoma 08/29/1998 History of TIA (transient ischemic attack) documented as of this encounter (statuses as of 07/27/2023) Resolved Problems Problem Noted Date Diagnosed Date [...] as of this encounter (statuses as of 07/27/2023) Immunizations Name Administration Dates Next Due COVID-19 [...] encounter Miscellaneous Notes * Telephone Encounter - Day, Wendi, PA-C - 07/27/2023 10:41 AM EST Spoke to patient regarding possible low back injection. Declines consideration of injection this time. Would require five day coumadin hold. Will contact clinic if interested. Total call duration four minutes. documented in this encounter Plan of Treatment Upcoming Encounters Date Type Department Care Team (Late st Contact Info) Description 08/10/2023 6:00 AM EST Anticoagulation Pharmacy Call Center WB [phone] [facility] [place] [address] [address], [facility] [address] [facility] [address] 08/18/2023 4:00 PM EST [facility] [address] [place] [address] Danitza Salinas RN 132 [facility] [place] [address] 2023 10:00 AM EST Office Visit Pulmonary Medicine, [facility] [address] [place] [address] Grey Green MD [address] [facility] [address] 03/28/2024 2:00 PM EDT Office Visit Rheumatology [place] [address] [facility] [place] [address] Yudi Horowitz CRNP [facility] [employer] [facility] [place] [address] 07/25/2024 11:40 AM EST Office Visit Sleep Disorders Ctr [facility] 132 [facility] [place] [phone] Marnie Hartman DO 132 [facility] [place] [address] Scheduled Procedures Name Priority Associated Diagnoses Date/Ti [...] Additional history exists CKD PHOS USE SMARTSET 46031 07/02/202306/23, 07/01/2021, 03/22/2020 Diabetic Eye Exam 07/20/2023 [...] Scan 03/11/2024 03/11/2023 CKD HGB USE SMARTSET 07713 03/29/202403/29, 03/29/2023, 12/01/2022, Additional history exists Albumin/Creatinine Ratio 05/31/2024 023, 10/20/2021, 08/11/2017, Additional history exists DTaP,Tdap,and Td Vaccines (3 - Td or Tdap) 01/11/2028 01/10/2018, 10/03/2012 Pneumococcal Vaccine: 65+ Years Completed 05/14/2015, 09/11/2009, 07/12/2003 Zoster Vaccines Completed 03/22/2020, 08/30/2019 COLONOSCOPY-EVERY 5 YRS AGES 18-100 Discontinued 11/19/2020, 11/19/2020, 05/16/2015, Additional history exists Alpha-1 Antitrypsin Completed 03/11/2022 VITAMIN D LEVEL ONCE IN A LIFETIME-USE SMARTSET# [id number] Completed 03/29/2023, 05/12/2014 Influenza Vaccine (FLU shot) [...] the patient have Health Care Power of Service Parts Driver? No Full Code 08/14/2010 2:57 PM 08/15/2010 2:24 PM Thi s order reflects the patients wishes and were consensually agreed upon.
--- OUTSIDE RECORDS SUMMARY | 2023-08-28 08:33 | External Medical Summary | Summary of Care ---
Author Name Unknown Organization [facility] Address [address] [facility] 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 (HCC),Centrilobular emphysema [...] 90 Tablet 2 11/13/2022 4 Active Umeclidinium [place] 62.5 MCG/ACT Inhalation Aerosol Powder Breath Activated (INCRUSE ellipta)Indications :COPD, group B, by GOLD 2017 classification ([facility]) INHALE ONE PUFF BY MOUTH [...] 12 Hour (Ranexa)Indications :Coronary artery disease of [place] artery of [place] heart with stable angina pectoris ([facility]) TAKE ONE TABLET BY MOUTH [...] hemoglobin A1c goal of less than 8.0% ([facility]) Inject 15 Units under the skin in the morning and 15 Units at noon and 15 Units before bedtime. With meals. DISPENSE 5 vials. 0 05/20/2023 Active Memantine HCl 5 MG Oral Tablet (Namenda)Indication s:Dementia in Alzheimer's disease ([facility]) TAKE ONE TABLET BY MOUTH IN THE [...] artery disease of n ative artery of [place] heart with stable angina pectoris 01/30/2017 Overview: More specific. 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 Last Assessment & Plan: Cognition at baseline -not tolerating Aricept HTN (hypertension) 09/28/2012 Atherosclerosis of [place] artery of extremity Obstructive sleep apnea 01/13/2010 [...] Team (Late st Contact Info) Description 08/09/2023 9:40 AM EST Laboratory Lab Mobile Phlebotomy [facility] [address] [place] [address] [facility] Draw [address] [place] [address] 08/10/2023 6:00 AM EST Anticoagulation Pharmacy Call Center [address] [facility] [place] [address] [facility], [facility] 58 60 [facility] [place] [address] 08/18/2023 4:00 PM EST [facility], [facility] 132 [facility] [place] [address] Danitza Salinas, RN 132 [place] [address] 09/03/2023 1:20 PM EST Pharmacy Family Practice [address] [place] [address] 293 [place] [phone] College, Pharmacist [address] [place] [address] 09/03/2023 1:40 PM EST Office Visit Family Practice [address] [place] [address] 293 [place] [phone] Gay López DO [address] [place] [address] 2023 10:00 AM EST Office Visit Pulmonary Medicine, [facility] 132 [facility] [place] [address] Grey Green MD [address] [place] [address] 03/28/2024 2:00 PM EDT Office Visit Rheumatology [place] [phone] [facility] [place] [address] Yudi Horowitz CRNP 25[address] [facility] [place], [place] [address] 07/25/2024 11:40 AM EST Office Visit Sleep Disorders Ctr [facility] [address] [place] [phone] Marnie Hartman, [address] [place] [address] Scheduled Procedures Name Priority Associated Diagnoses Date/Ti [...] Additional history exists CKD PHOS USE SMARTSET 87955 07/02/202306/23, 07/01/2021, 03/22/2020 Diabetic Eye Exam 07/20/2023 [...] Scan 03/11/2024 03/11/2023 CKD HGB USE SMARTSET [id number] 03/29/202403/29, 03/29/2023, 12/01/2022, Additional history exists Albumin/Creatinine Ratio 05/31/2024 023, 10/20/2021, 08/11/2017, Additional history exists DTaP,Tdap,and Td Vaccines (3 - Td or Tdap) 01/11/2028 01/10/2018, 10/03/2012 Pneumococcal Vaccine: 65+ Years Completed 05/14/2015, 09/11/2009, 07/12/2003 Zoster Vaccines Completed 03/22/2020, 08/30/2019 COLONOSCOPY-EVERY 5 YRS AGES 18-100 Discontinued 11/19/2020, 11/19/2020, 05/16/2015, Additional history exists Alpha-1 Antitrypsin Completed 03/11/2022 VITAMIN D LEVEL ONCE IN A LIFETIME-USE SMARTSET# [id number] Completed 03/29/2023, 05/12/2014 Influenza Vaccine (FLU shot) [...] Date/Time Associated Diagnosis Comments OUTSIDE LAB RESULTS 08/02/2023 documented in this encounter Results * OUTSIDE LAB RESULTS (08/02/2023) 08/02/2023 No Physician Data Unknown LABORATORY documented in [...] the patient have Health Care Power of Periodontal Assistant? No Full Code 08/14/2010 2:57 PM 08/15/2010 2:24 PM Thi s order reflects the patients wishes and were consensually agreed upon.
--- OUTSIDE RECORDS SUMMARY | 2023-08-28 08:33 | External Medical Summary | Summary of Care ---
Author Name Unknown Organization [facility] Address [address] [facility] [place] [address] Phone [phone] Care Team Providers Care Document Coordinator Name Role Phone Unavailable Primary Care Provider Unavailabl e Reason for Visit * Reason Comments Follow Up Here for 1 year retu rn. F/u VENICE/ on CPAP and O2. Patient o2 consentrater was this morning . So I placed o2 on patient due to his o2 was at 88 % . Encounter Details Date Type Department Care Team (Late st Contact Info) Description 07/22/2023 3:00 PM EST Office Visit Sleep Disorders Ctr [facility] [address] [facility] [place] [address] Marnie Hartman DO 132 [facility] [place] [address] Obstructive sleep apnea*; Nocturnal hypoxemia Allergies Active Allergy Reactions Criticality Noted Date Comments Propoxyphene N-Acetaminophen 06/22/2012 N/V Fentanyl Nausea/vomiting 10/15/2009 Oxycodone High 01/21/2023 Other reaction(s): vomiting Oxycodone-Acetaminophen Nausea/vomiting High 010 documented as of this encounter (statuses as of 07/25/2023) Medications Medication Sig Dispensed Refills Start Date End Date Status SYRINGE (DISPOSABLE) 5 ML MISCIndications:DM type 2 causing neurological disease (HCC) use as directed for lantus 1 box 11 09/11/2009 Active Yoke ULTRA 2 W/DEVICE KITIndications:DM type 2, goal A1C 7-8 use as directed 1 Kit 0 03/09/2012 Active Yoke WILLY LANCETS MISCIndications:DM type 2, goal A1C 7-8 use up to 4 times daily 100 Each 11 03/09/2012 Active Ionic SecurityTOUCH ULTRA BLUE STRPIndications:DM type 2, goal A1C [...] 1 Each 0 04/09/2022 Active oxygen IN GASIndications: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 respiratory failure with hypoxia (HCC),Centrilobular emphysema [...] 90 Tablet 2 11/13/2022 4 Active Umeclidinium Orange 62.5 MCG/ACT Inhalation Aerosol Powder Breath Activated (INCRUSE ellipta)Indications :COPD, group B, by GOLD 2017 classification ([facility]) INHALE ONE PUFF BY MOUTH EVERY [...] 12 Hour (Ranexa)Indications :Coronary artery disease of [place] artery of [place] heart with stable angina pectoris (HCC) TAKE ONE TABLET BY MOUTH TWICE A [...] hemoglobin A1c goal of less than 8.0% ([facility]) Inject 15 Units under the skin [...] as of this encounter (statuses as of 07/25/2023) Active Problems Problem Noted Date Diagnosed Date [...] artery disease of n ative artery of [place] heart with stable angina pectoris 01/30/2017 Overview: More specific. 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 History of TIA (transient ischemic attack) documented as of this encounter (statuses as of 07/25/2023) Resolved Problems Problem Noted Date Diagnosed Date [...] as of this encounter (statuses as of 07/25/2023) Immunizations Name Administration Dates Next Due COVID-19 [...] Some Days Cigarettes 64 Smokeless Tobacco: Never Tobacco Cessation:Ready to Q uit: Not Asked; Counseling Given: Not Answered Comments:2 - 4 cigarettes per month Alcohol Use Standard Drinks/Week Comments Yes [...] Sign Reading Time Taken Comments Blood Pressure 130/80 07/22/2023 3:09 PM EST Pulse 61 07/22/2023 3:09 PM EST Temperature 36 C (96.8 F) 07/22/2023 3:09 PM EST Respiratory Rate 18 07/22/2023 3:09 PM EST Oxygen Saturation 98% 07/22/2023 3:09 PM EST Inhaled Oxygen Concentration - - [...] as of this encounter Progress Notes * Marnie Hartman, DO - 07/22/2023 3:14 PM EST Sleep Medicine Follow-Up HISTORY: Kaleb Oakley is a 77 year old male for follow up of VENICE. PSG 12/20/2009: no REM sleep, AHI 11.1, SpO2 <90% 254 min. PAP titration 05/19/2010: CPAP 15 cwp. Nocturnal oximetry 07/28/21 on CPAP & 2 L/min: time <= 88% 95.4 min. Adjusted oxygen to 3 L/min via CPAP. At last year's appt, adjusted CPAP from 10 cwp to 5-10 cwp due to awakening with nausea (he also had GI evaluation planned). Using CPAP 5-10 cmH2O with 3 L/min oxygen (also uses oxygen with exertion). On GI evaluation he was found to have bleeding in stomach & intestine, which was cauterized. Nausea improved with that. He sometimes feels like he could use more air pressure from the CPAP now. Subjective PAP adherence: excellent Snoring on PAP: no, but he makes some noise, moaning/groaning. Daytime sleepiness: not usually Drowsy driving: none Mask leak: occasional Morning headaches: no [place] Sleepiness Scale: 5 Travel Screening Question 07/22/2023 2:35 PM EST - Filed by Patient Do you have any of the following new or worsening symptoms? None of these Have you recently been in contact with someone who was sick? No / Unsure [place] Sleepiness Scale Question 07/22/2023 3:09 PM EST - Filed by Sharon Feldman LPN What is the chance you will doze off in the following situation? Sitting and reading No chance of dozing Watching TV Moderate chance of dozing Sitting inactive in a public place, such as a theater or meeting High chance of dozing As a passenger in a car for an hour without a break No chance of dozing Lying down to rest in the afternoon when circumstances permit No chance of dozing When sitting and talking to someone No chance of dozing When sitting quietly after lunch without alcohol No chance of dozing In a car, while stopped for a few minutes in traffic No chance of dozing Score (range: 0 - 24) 5 CPAP Compliance: Report date: 07/19/23 % total days used: 100% % days used > 4 hours: 100% Average hours per day used: 10h 16m Large leak: sometimes (95%ile 44.9 L/min) AHI: 3.0 /hr Median pressure: 7.8 cmH2O 95%ile pressure: 9.7 cmH2O Pressure settin-10 cmH2O Equipment: DME Provider is [facility] Uses a AirSense 10. Patient Active Problem List Diagnosis Code History of TIA (transient ischemic attack) Z86.73 Preglaucoma H40.009 Lumbar disc disorder with myelopathy M51.06 Old myocardial infarction I25.2 Obstructive sleep apnea G47.33 Atherosclerosis of [place] artery of extremity ([facility]) I70.209 HTN (hypertension) I10 Dementia in Alzheimer's disease ([facility]) G30.9, F02.80 S/P primary angioplasty with coronary stent Z95.5 Coronary artery disease of [place] artery of [place] heart with stable angina pectoris ([facility]) I25.118 Ectatic abdominal aorta ([facility]) I77.811 PAD (peripheral artery disease) ([facility]) I73.9 Asymptomatic bilateral carotid artery stenosis I65.23 Gastro-esophageal reflux disease without esophagitis K21.9 Chronic kidney disease, stage 3a (HCC) N18.31 Diastolic congestive heart failure (HCC) I50.30 Atrial flutter ([facility]) I48.92 Centrilobular emphysema ([facility]) J43.2 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) I13.0, I50.32, N18.31 Chronic respiratory failure with hypoxia ([facility]) J96.11 Restrictive lung disease J98.4 Typical atrial flutter ([facility]) I48.3 COPD, group B, by GOLD 2017 classification ([facility]) J44.9 Severe obesity (BMI 35.0-39.9) with comorbidity ([facility]) E66.01 Type 2 diabetes mellitus without complication ([facility]) E11.9 Gait disturbance R26.9 Generalized weakness R53.1 Type 2 diabetes mellitus with peripheral artery disease (HCC) E11.51 Type 2 diabetes mellitus with stage 3a chronic kidney disease, with long-term current use of insulin (HCC) E11.22, N18.31, Z79.4 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 M80.08XD Type 2 diabetes mellitus with diabetic polyneuropathy, with long-term current use of insulin ([facility]) E11.42, Z79.4 Atherosclerosis of aorta ([facility]) I70.0 Outpatient Medications Marked as Taking for the 07/22/23 encounter (Office Visit) with Marnie Hartman, DO Medication Sig Pantoprazole Sodium 40 MG Oral Tablet Delayed Release (Protonix) TAKE ONE TABLET BY MOUTH EVERY DAY Memantine HCl 5 MG Oral Tablet (Namenda) TAKE ONE TABLET BY MOUTH IN THE MORNING AND ONE TABLET BEFORE BEDTIME NovoLIN R ReliOn 100 UNIT/ML Injection Solution (insulin REGULAR human) Inject 15 Units under the skin in the morning and 15 Units at noon and 15 Units before bedtime. With meals. DISPENSE 5 vials. Vitamin D 25 MCG (1000 UT) Oral Tablet Take 1 Tablet by mouth every evening. Vitamin E 1000 UNIT Oral Capsule Take 1 Capsule by mouth in the morning. Isosorbide Mononitrate ER 60 MG Oral Tablet Extended Release 24 Hour (Imdur) TAKE ONE TABLET BY MOUTH TWICE A DAY Tylenol 325 MG Oral Capsule (Acetaminophen) Take 650 mg by mouth in the morning and 650 mg before bedtime. Metoprolol Tartrate 100 MG Oral Tablet (Lopressor) TAKE 1 TABLET BY MOUTH IN THE MORNING AND 1 TABLET BEFORE BEDTIME traZODone HCl 100 MG Oral Tablet (Desyrel) TAKE ONE TABLET BY MOUTH AT BEDTIME NEEDED FOR SLEEP Umeclidinium Orange 62.5 MCG/ACT Inhalation Aerosol Powder Breath Activated (INCRUSE ellipta) INHALE ONE PUFF BY MOUTH EVERY DAY IN THE MORNING Warfarin Sodium 5 MG Oral Tablet (Coumadin) TAKE ONE TABLET BY MOUTH AT BEDTIME Furosemide 20 MG Oral Tablet (Lasix) TAKE ONE TABLET BY MOUTH EVERY MORNING PLUS ADDITIONAL ONE TABLET TWO DAYS PER WEEK Atorvastatin Calcium 80 MG Oral Tablet (Lipitor) TAKE ONE TABLET BY MOUTH EVERY DAY Ranolazine ER 500 MG Oral Tablet Extended Release 12 Hour (Ranexa) TAKE ONE TABLET BY MOUTH TWICE ADAY -- IN THE MORNING AND BEFORE BEDTIME Docusate Sodium 100 MG Oral Tablet Take 1 Tablet by mouth in the morning and 1 Tablet before bedtime. oxygen IN GAS 2 LPM by inogen or portable oxygen concentrator with exertion. Use 3 LPM by standing concentrator with sleep Nebulizer Device Use with nebulized medications oxygen IN GAS Use 2 LPM with exertion (Patient taking differently: 3 L/min(Oxygen) at bedtime. Use 3 LPM with exertion and at night) CPAP every night at bedtime . insulin isophane human (NOVOLIN N RELION) 100 UNIT/ML injection INJECT 36 UNITS SUBCUTANEOUSLY AT NOON AND INJECT 25 UNITS AT MIDNIGHT DAILY Misc Natural Products (T-RELIEF CBD+13) SUBL Place 1 Each under the tongue at bedtime. Insulin Syringe-Needle U-100 (BD INSULIN SYRINGE ULTRAFINE) 31G X 5/16" 0.5 ML MISC Use to inject insulin 5 times daily Magnesium Oxide 400 MG Tablet TAKE 1 TABLET BY MOUTH ONCE A DAY ONETOUCH ULTRA BLUE STRP TEST BLOOD SUGAR 7 TIMES A DAY ONETOUCH DELICA LANCETS MISC use up to 4 times daily ONETOUCH ULTRA 2 W/DEVICE KIT use as directed SYRINGE (DISPOSABLE) 5 ML MISC use as directed for lantus RSO gummy at bedtime. PHYSICAL EXAM: Filed Vitals: 07/22/23 1509 BP: 130/80 Pulse: 61 Resp: 18 Temp: 36 C (96.8 F) TempSrc: Tympanic SpO2: 98% BMI Readings from Last 1 Encounters: 05/21/23 35.07 kg/m General: alert, no acute distress Head: NC/AT Lungs: normal respiratory effort Neuro: speech clear and appropriate ASSESSMENT/PLAN: Obstructive sleep apnea - excellent adherence; encourage continued use of CPAP with all sleep - good efficacy of therapy, though sometimes feels like he could use more pressure; adjust CPAP back to 10 cmH2O - DME: [facility] - Routine cleaning and change of supplies as needed. - Continue to avoid driving when feeling sleepy/drowsy. Chronic hypoxemic respiratory failure Emphysema/COPD, CHF - nocturnal oximetry on CPAP 10 cwp with 3 L/min oxygen Follow-up with Sleep Medicine in 1 year. Marnie Hartman DO documented in this encounter Nursing Notes * Sharon Feldman LPN - 07/22/2023 3:11 PM EST Chief Complaint Patient presents with Follow Up Here for 1 year return. F/u VENICE/ on CPAP and O2. Patient o2 consentrater was this morning . SoI placed o2 on patient due to his o2 was at 88 % . So O2 placed and O2 increased to 98 @ 3L of O2. Pulse 61. Patient has no c/o distress at this time. Travel Screening Question 07/22/2023 2:35 PM EST - Filed by Patient Do you have any of the following new or worsening symptoms? None of these Have you recently been in contact with someone who was sick? No / Unsure [place] Sleepiness Scale Question 07/22/2023 3:09 PM EST - Filed by Sharon Feldman LPN What is the chance you will doze off in the following situation? Sitting and reading No chance of dozing Watching TV Moderate chance of dozing Sitting inactive in a public place, such as a theater or meeting High chance of dozing As a passenger in a car for an hour without a break No chance of dozing Lying down to rest in the afternoon when circumstances permit No chance of dozing When sitting and talking to someone No chance of dozing When sitting quietly after lunch without alcohol No chance of dozing In a car, while stopped for a few minutes in traffic No chance of dozing Score (range: 0 - 24) 5 documented in this encounter Plan of Treatment Upcoming Encounters Date Type Department Care Team (Late st Contact Info) Description 07/26/2023 9:10 AM EST Laboratory Lab Mobile Phlebotomy [facility] [address] [facility] [place] [address] [facility] Mobile Home Draw [address] [place] [address] 07/27/2023 6:00 AM EST Anticoagulation Pharmacy Call Center [address] [facility] [place] [address] [facility], [facility] [address] [facility] [place] [address] 08/18/2023 4:00 PM EST [facility] Visit [facility], [facility] 132 [facility] [place] [address] Danitza Salinas, RN 132 [facility] [place] [address] 2023 10:00 AM EST Office Visit Pulmonary Medicine, [facility] 132 [facility] [place] [address] Grey Green MD [address] [facility] [place] [place] [address] 03/28/2024 2:00 PM EDT Office Visit Rheumatology [place] [address] [facility] [place] [address] Yudi Horowitz CRNP [facility] [facility] [place] [address] 07/25/2024 11:40 AM EST Office Visit Sleep Disorders Ctr [facility] 132 [facility] [place] [phone] Marnie Hartman DO 132 [facility] [place] [address] Scheduled Orders Name Type Priority Associated Diagnoses Orde r Schedule NOCTURNAL HOME OXIMETRY (OP) Procedures Routine Obstructive sleep apnea Nocturnal hypoxemia Ordered: 07/22/2023 Scheduled Procedures Name Priority Associated Diagnoses Date/Ti [...] Additional history exists CKD PHOS USE SMARTSET 50235 07/02/202306/23, 07/01/2021, 03/22/2020 Diabetic Eye Exam 07/20/2023 07/20/2022, , 08/26/2020, Additional history exists O2 ASSESSMENT COMPLETED IN PAST YEAR FOR COPD 08/10/2023 08/10/2022 DISCUSS TOBACCO CESSATION (REFER TO SMARTSET #[id number]) 08/26/2023 08/26/2022, 05/27/2022, 02/11/2022, Additional history exists HbA1c 10/15/2023 04/14/2023, 06/23, 02/06/2022, Additional history exists Depression Screening 11/21/2023 11/20/2022 GFR 11/26/2023 05/27/2023, 0810/2022, 03/29/2023, Additional history exists DXA Scan 03/11/2024 03/11/2023 CKD HGB USE SMARTSET 34108 03/29/202403/29, 03/29/2023, 12/01/2022, Additional history exists Albumin/Creatinine Ratio 05/31/2024 023, 10/20/2021, 08/11/2017, Additional history exists DTaP,Tdap,and Td Vaccines (3 - Td or Tdap) 01/11/2028 01/10/2018, 10/03/2012 Pneumococcal Vaccine: 65+ Years Completed 05/14/2015, 09/11/2009, 07/12/2003 Zoster Vaccines Completed 03/22/2020, 08/30/2019 COLONOSCOPY-EVERY 5 YRS AGES 18-100 Discontinued 11/19/2020, 11/19/2020, 05/16/2015, Additional history exists Alpha-1 Antitrypsin Completed 03/11/2022 VITAMIN D LEVEL ONCE IN A LIFETIME-USE SMARTSET# [id number] Completed 03/29/2023, 05/12/2014 Influenza Vaccine (FLU shot) Completed 05/18/2023, 05/27/2022, 06/23/2021, Additional history exists GARDASIL-HPV IMMUNIZATION SERIES Aged Out No longer eligible based on patient's age to complete this topic MENINGOCOCCAL (MENACTRA/MENVEO) Aged Out No longer eligible based on patient's age to complete this topic documented as of this encounter Medical Devices Not on filedocumented as of this encounter Visit Diagnoses Diagnosis Obstructive sleep apnea- Primary Obstructive sleep apnea (adult) (pediatric) Nocturnal hypoxemia Hypoxemia documented in this encounter Advance Directives Latest [...] the patient have Health Care Power of Scratch Finisher? No Full Code 08/14/2010 2:57 PM 08/15/2010 2:24 PM Thi s order reflects the patients wishes and were consensually agreed upon.
--- OUTSIDE RECORDS SUMMARY | 2023-08-28 08:33 | External Medical Summary | Summary of Care ---
Author Name Unknown Organization [facility] Address [address] [facility] [place] [address] Phone [phone] Care Team Providers Care Real Estate Services Coordinator Name Role Phone Unavailable Primary Care Provider Unavailabl e Reason for Visit * Reason Onset Date Comments [facility]: Maintenance 07/21/2023 Encounter Details Date Type Department Care Team (Latest Contact Info) Description 07/21/2023 10:00 AM EST Scheduled Telephone [facility], [facility] [address] [facility] [place] [address] [facility] Nurse Triage [address] [facility] [place] [address] Canceled (Clinician Appt Cancel Appt Not Needed) Allergies Active Allergy Reactions Criticality Noted Date Comments Propoxyphene N-Acetaminophen 06/22/2012 N/V Fentanyl Nausea/vomiting 10/15/2009 Oxycodone High 01/21/2023 Other reaction(s): vomiting Oxycodone-Acetaminophen Nausea/vomiting High 010 documented as of this encounter (statuses as of 07/24/2023) Medications Medication Sig Dispensed Refills Start Date End Date Status SYRINGE (DISPOSABLE) 5 ML MISCIndications:DM type 2 causing neurological disease (HCC) use as directed for lantus 1 box 11 09/11/2009 Active ONETOUCH ULTRA 2 W/DEVICE KITIndications:DM type 2, goal A1C 7-8 use as directed 1 Kit 0 03/09/2012 Active ONETOUCH IWLLY LANCETS MISCIndications:DM type 2, goal A1C 7-8 [...] Each 0 04/09/2022 Active oxygen IN GASIndications:Director Search Marketing Strategies bobbi respiratory failure with hypoxia (HCC),Centrilobular emphysema [...] 90 Tablet 2 11/13/2022 4 Active Umeclidinium [place] 62.5 MCG/ACT Inhalation Aerosol Powder Breath Activated (INCRUSE ellipta)Indications :COPD, group B, by GOLD 2017 classification ([facility]) INHALE ONE PUFF BY MOUTH EVERY DAY [...] 12 Hour (Ranexa)Indications :Coronary artery disease of [place] artery of [place] heart with stable angina pectoris ([facility]) TAKE ONE TABLET BY MOUTH TWICE A [...] goal of less than 8.0% ([facility]) Inject 15 Units under the skin in [...] as of this encounter (statuses as of 07/24/2023) Active Problems Problem Noted Date Diagnosed Date [...] artery disease of n ative artery of [place] heart with stable angina pectoris 01/30/2017 Overview: More specific. 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 Last Assessment & Plan: Cognition at baseline -not tolerating Aricept HTN (hypertension) 09/28/2012 Atherosclerosis of [place] artery of extremity Obstructive sleep apnea 01/13/2010 Overview: ICD-10 update of inactive term Last Assessment & Plan: Compliant with CPAP Old myocardial infarction 10/25/2009 Lumbar disc disorder with myelopathy 10/15/2009 Overview: Fentanyl patch caused severe nausea and vomiting Failed ultram Oxycodone caused nausea Preglaucoma 08/29/1998 History of TIA (transient ischemic attack) documented as of this encounter (statuses as of 07/24/2023) Resolved Problems Problem Noted Date Diagnosed Date [...] as of this encounter (statuses as of 07/24/2023) Immunizations Name Administration Dates Next Due COVID-19 [...] 9:10 AM EST Laboratory Lab Mobile Phlebotomy [facility] [address] [place] [address] [facility], [facility] Mobile Home Draw [address] [place] [address] 07/27/2023 6:00 AM EST Anticoagulation Pharmacy Call Center WB [address] [facility] [place] [address] [facility], [facility] [address] [facility] [address] 08/18/2023 4:00 PM EST [facility] [address] [facility] [place] [address] Danitza Salinas RN [address] [facility] [place] [address] 2023 10:00 AM EST Office Visit Pulmonary Medicine, [facility] [address] [facility] [place] [address] Grey Green MD [address] [facility] [place] [address] 03/28/2024 2:00 PM EDT Office Visit Rheumatology [place] [phone] [facility] [place] [address] Yudi Horowitz CRNP [facility] [place] [address] 07/25/2024 11:40 AM EST Office Visit Sleep Disorders Ctr [facility] [address] [facility] [place] [phone] Marnie Hartman DO [address] [facility] [place] [address] Scheduled Procedures Name Priority Associated Diagnoses Date/Ti [...] Additional history exists CKD PHOS USE SMARTSET 08639 07/02/202306/23, 07/01/2021, 03/22/2020 Diabetic Eye Exam 07/20/2023 [...] Scan 03/11/2024 03/11/2023 CKD HGB USE SMARTSET 70108 03/29/202403/29, 03/29/2023, 12/01/2022, Additional history exists Albumin/Creatinine Ratio 05/31/2024 023, 10/20/2021, 08/11/2017, Additional history exists DTaP,Tdap,and Td Vaccines (3 - Td or Tdap) 01/11/2028 01/10/2018, 10/03/2012 Pneumococcal Vaccine: 65+ Years Completed 05/14/2015, 09/11/2009, 07/12/2003 Zoster Vaccines Completed 03/22/2020, 08/30/2019 COLONOSCOPY-EVERY 5 YRS AGES 18-100 Discontinued 11/19/2020, 11/19/2020, 05/16/2015, Additional history exists Alpha-1 Antitrypsin Completed 03/11/2022 VITAMIN D LEVEL ONCE IN A LIFETIME-USE SMARTSET# [id number] Completed 03/29/2023, 05/12/2014 Influenza Vaccine (FLU shot) [...] the patient have Health Care Power of Flotation Operator? No Full Code 08/14/2010 2:57 PM 08/15/2010 2:24 PM Thi s order reflects the patients wishes and were consensually agreed upon.
--- OUTSIDE RECORDS SUMMARY | 2023-08-28 08:33 | External Medical Summary ---
Author Name Unknown Address Unknown Organization K0G:[facility] [address] [place] [id number] Laboratory Report Ordering Provider Test Date Status LUIS ALBERTO CASH 07/26/2023 10:21:00 Final Warfarin Therapy
INR: 2 .0-3.0 conventional anticoagulation
INR: 2.5- 3.5 high intensity anticoagulation Observation Date Value Abnormality Reference (Units ) Status PT 07/26/2023 10:21:00 28.7 Above high normal 11 .6-15.2 (seconds) Final INR 07/26/2023 10:21:00 2.7 Above high normal 0. 8-1.2 Final Performing Location [facility] [address] [place] [id number]
--- OUTSIDE RECORDS SUMMARY | 2023-08-28 08:33 | External Medical Summary | Summary of Care ---
Author Name Unknown Organization [facility] Address [address] [facility] [place] [address] Phone [phone] Care Team Providers Care Principal Data Architect Name Role Phone Unavailable Primary Care Provider Unavailabl e Reason for Visit * Reason Comments Dosage Adjustment Via Phone (anticoag Cl inic) Encounter Details Date Type Department Care Team (Latest Contact Info) Description 07/13/2023 6:00 AM EST Anticoagulation Pharmacy Call Center [address] [place] [address] [facility] 58 60 [facility] [place] [address] Anticoagulation management encounter* Allergies Active Allergy Reactions [...] as directed for lantus 1 box 11 0 Active ONETOUCH ULTRA 2 W/DEVICE KITIndications:DM type 2, goal A1C 7-8 use as directed 1 Kit 0 2 Active ONETOUCH DELICA LANCETS MISCIndications:DM type 2, goal A1C 7-8 use up to 4 times daily 100 Each 11 2 Active ONETOUCH ULTRA BLUE STRPIndications:DM type 2, goal A1C 7-8 TEST BLOOD SUGAR 7 TIMES A DAY 200 Strip 5 4 Active Magnesium Oxide 400 MG TabletIndications:H ypomagnesemia TAKE 1 TABLET BY MOUTH ONCE A DAY 30 Tab 5 8 Active Insulin Syringe-Needle U-100 (BD INSULIN SYRINGE ULTRAFINE) 31G X 5/16" 0.5 ML MISCIndications:Typ e 1 diabetes mellitus with hemoglobin A1c goal of less than 8.0% (HCC) Use to inject insulin 5 times daily 200 Each 11 8 Active Misc Natural Products (T-RELIEF CBD+13) SUBL Place 1 Each under the tongue at bedtime. 0 Active insulin isophane human (NOVOLIN N RELION) 100 UNIT/ML injectionIndication s:Type 1 diabetes mellitus with hemoglobin A1c goal of less than 8.0% (HCC) INJECT 36 UNITS SUBCUTANEOUSLY AT NOON AND INJECT 25 UNITS AT MIDNIGHT DAILY 30 mL 0 0 Active CPAP every night at bedtime . 0 Active oxygen IN GASIndications:Cent rilobular emphysema (HCC),Chronic respiratory failure with hypoxia (HCC) Use 2 LPM with exertion 1 Each 0 2 Active Additional Information Patient taking differently: 3 L/min(Oxygen) HS, Use 3 LPM with exertion and at night, Reported on 10/26/2022 Nebulizer DeviceIndications:C hronic respiratory failure with hypoxia (HCC),Centrilobular emphysema (HCC) Use with nebulized medications 1 Each 0 2 Active oxygen IN GASIndications:Shake Backboard Notcher bobbi respiratory failure with hypoxia (HCC),Centrilobular emphysema (HCC) 2 LPM by inogen or portable oxygen concentrator with exertion. Use 3 LPM by standing concentrator with sleep 1 Each 0 2 Active Docusate Sodium 100 MG Oral Tablet [...] 1 TABLET BEFORE BEDTIME 180 Tablet 3 3 12/30/19 24 Active traZODone HCl 100 MG Oral Tablet (Desyrel) TAKE ONE TABLET BY MOUTH AT BEDTIME NEEDED FOR SLEEP 90 Tablet 2 3 11/13/19 24 Active Umeclidinium [place] 62.5 MCG/ACT Inhalation Aerosol Powder Breath Activated (INCRUSE ellipta)Indications :COPD, group B, by GOLD 2017 classification ([facility]) INHALE ONE PUFF BY MOUTH EVERY DAY IN THE MORNING 90 Each 3 3 11/05/19 24 Active Warfarin Sodium 5 MG Oral Tablet (Coumadin) TAKE ONE TABLET BY MOUTH AT BEDTIME 90 Tablet 3 3 11/02/19 24 Active Furosemide 20 MG Oral Tablet (Lasix) TAKE ONE TABLET BY MOUTH EVERY MORNING PLUS ADDITIONAL ONE TABLET TWO DAYS PER WEEK 110 Tablet 3 3 10/23/19 24 Active Atorvastatin Calcium 80 MG Oral Tablet (Lipitor)Indication s:Dyslipidemia, goal LDL below 100 TAKE ONE TABLET BY MOUTH EVERY DAY 90 Tablet 0 3 10/06/19 24 Active Ranolazine ER 500 MG Oral Tablet Extended Release 12 Hour (Ranexa)Indications :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 With meals. DISPENSE 5 vials. 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 PT/INR results, Coumadin dose instructions, and next PT/INR date communicated as noted by Pharmacist: Yes Ambrocio Benitez front sight attacher 07/13/2023, 9:20 AM * Layne Fuller RPh - 07/13/2023 8:02 AM EST Images from the original note were not included. Coumadin Clinic (region specific) Objective Current Warfarin Dose As of 07/13/2023 Warfarin maintenance plan: 5 mg (5 mg x 1) every Mon; 2.5 mg (5 mg x 0.5) all other days INR Result As of 07/13/2023 INR goal: 2.0-3.0 INR used for dosin.2 (07/12/2023) Assessment & Plan Warfarin Plan As of 07/13/2023 Full warfarin instructions: 07/13: Hold; Otherwise 5 mg every Mon; 2.5 mg all other days Next INR check: 07/26/2023 Has pt received home machine? Date of interventional pain injection? Repeat PT/INR in 2 week(s) Weekly dose: not changed Additional Dosing Information: Description L Tech to contact patient with dose instructions as noted. Layne Fuller RPh 07/13/2023, 8:03 AM documented in this encounter Plan of Treatment Upcoming Encounters Date Type Department Care Team (Late st Contact Info) Description 07/26/2023 9:10 AM EST Laboratory Lab Mobile Phlebotomy [facility] [address] [place], [place] [id number] [facility] Mobile Home Draw [address] [facility] [place], [place] [address] 07/27/2023 6:00 AM EST Anticoagulation Pharmacy Call Center WB [address]60 [facility] [place] [address] [facility], [facility] 58 60 [facility] [place] [address] 08/18/2023 4:00 PM EST [facility], [facility] 132 [facility] [place] [address] Danitza Salinas RN 132 [facility] [place] [address] 2023 10:00 AM EST Office Visit Pulmonary Medicine, [facility] 132 [facility] [place] [address] Grey Green [facility] [address] [facility] [address] 03/28/2024 2:00 PM EDT Office Visit Rheumatology [place] [address] [facility] [place] [address] Yudi Horowitz CRNP [facility] [address] 07/25/2024 11:40 AM EST Office Visit Sleep Disorders Ctr [facility] 132 [facility] [place] [phone] Marnie Hartman DO 132 [facility] [place] [address] Scheduled Procedures Name Priority Associated Diagnoses Date/Ti me COLONOSCOPY FLEXIBLE PROXIMAL DIAGNOSTIC Recall History of colon polyps Health Maintenance Due Date Last Done Comments Hepatitis B (1 of 3 - Risk 3-dose series) 2004 COLONOSCOPY-EVERY 2 YRS AGES 18-100 11/19/2022 11/19/2020, 11/19/2020, 05/16/2015, Additional history exists Diabetic Foot Exam 02/06/2023 02/06/2022, 0 08/30/2019, 08/18/2018, Additional history exists COVID-19 Vaccine ( - 2022- season) 2023 12/23/2021, 07/24/2021, 07/24/2021, Additional history exists CKD PHOS USE SMARTSET 83558 07/02/202306/23, 07/01/2021, 03/22/2020 Diabetic Eye Exam 07/20/2023 [...] Scan 03/11/2024 03/11/2023 CKD HGB USE SMARTSET 00980 03/29/202403/29, 03/29/2023, 12/01/2022, Additional history exists Albumin/Creatinine Ratio 05/31/2024 023, 10/20/2021, 08/11/2017, Additional history exists DTaP,Tdap,and Td Vaccines (3 - Td or Tdap) 01/11/2028 01/10/2018, 10/03/2012 Pneumococcal Vaccine: 65+ Years Completed 05/14/2015, 09/11/2009, 07/12/2003 Zoster Vaccines Completed 03/22/2020, 08/30/2019 COLONOSCOPY-EVERY 5 YRS AGES 18-100 Discontinued 11/19/2020, 11/19/2020, 05/16/2015, Additional history exists Alpha-1 Antitrypsin Completed 03/11/2022 VITAMIN D LEVEL ONCE IN A LIFETIME-USE SMARTSET# [id number] Completed 03/29/2023, 05/12/2014 Influenza Vaccine (FLU shot) Completed 05/18/2023, 05/27/2022, 06/23/2021, Additional history exists GARDASIL-HPV IMMUNIZATION SERIES Aged Out No longer eligible based on patient's age to complete this topic MENINGOCOCCAL (MENACTRA/MENVEO) Aged Out No longer eligible based on patient's age to complete this topic documented as of this encounter Medical Devices Not on filedocumented as of this encounter Visit Diagnoses Diagnosis Anticoagulation management [...] the patient have Health Care Power of Director Of Cardiac Cath Lab? No Full Code 08/14/2010 2:57 PM 08/15/2010 2:24 PM Thi s order reflects the patients wishes and were consensually agreed upon.
--- OUTSIDE RECORDS SUMMARY | 2023-08-28 08:33 | External Medical Summary | Summary of Care ---
Author Name Unknown Organization [facility] Address [address] [facility] [place] [address] Phone [phone] Care Team Providers Care Bail Agent Name Role Phone Unavailable Primary Care Provider Unavailabl e Encounter Details Date Type Department Care Team (Late st Contact Info) Description 07/26/2023 Telephone Pulmonary Medicine, [facility] [address] [place] [address] Marnie Hartman DO [address] [place] [address] Allergies Active Allergy Reactions Criticality Noted Date Comments Propoxyphene N-Acetaminophen 06/22/2012 N/V Fentanyl Nausea/vomiting 10/15/2009 Oxycodone High 01/21/2023 Other reaction(s): vomiting Oxycodone-Acetaminophen Nausea/vomiting High 010 documented as of this encounter (statuses as of 07/26/2023) Medications Medication Sig Dispensed Refills Start Date End Date Status SYRINGE (DISPOSABLE) 5 ML MISCIndications:DM type 2 causing neurological disease (HCC) use as directed for lantus 1 box 11 09/11/2009 Active Apnex MedicalTOUCH ULTRA 2 W/DEVICE KITIndications:DM type 2, goal A1C 7-8 use as directed 1 Kit 0 03/09/2012 Active Apnex MedicalTOUCH DELICA LANCETS MISCIndications:DM type 2, goal A1C [...] 1 Each 0 04/09/2022 Active oxygen IN GASIndications:Global Compensation Director bobbi respiratory failure with hypoxia (HCC),Centrilobular emphysema [...] 90 Tablet 2 11/13/2022 4 Active Umeclidinium [place] 62.5 MCG/ACT Inhalation Aerosol Powder Breath Activated (INCRUSE ellipta)Indications :COPD, group B, by GOLD 2017 classification ([facility]) INHALE ONE PUFF BY MOUTH [...] 12 Hour (Ranexa)Indications :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 Last Assessment & Plan: Cognition at baseline -not tolerating Aricept HTN (hypertension) 09/28/2012 Atherosclerosis of ruby artery of extremity Obstructive sleep apnea 01/13/2010 Overview: ICD-10 update of inactive term Last Assessment & Plan: Compliant with CPAP Old myocardial infarction 10/25/2009 Lumbar disc disorder with myelopathy 10/15/2009 Overview: Fentanyl patch caused severe nausea and vomiting Failed ultram Oxycodone caused nausea Preglaucoma 08/29/1998 History of TIA (transient ischemic attack) documented as of this encounter (statuses as of 07/26/2023) Resolved Problems Problem Noted Date Diagnosed Date [...] as of this encounter (statuses as of 07/26/2023) Immunizations Name Administration Dates Next Due COVID-19 [...] encounter Miscellaneous Notes * Telephone Encounter - Ludivina Navarrete OSA - 07/26/2023 9:29 AM EST CPAP supply order entered into TH. Adjust CPAP order entered into TH. Nocturnal order entered into TH. documented in this encounter Plan of Treatment Upcoming Encounters Date Type Department Care Team (Late st Contact Info) Description 07/27/2023 6:00 AM EST Anticoagulation Pharmacy Call Center 58-60 [facility] [place] [address] [facility], [facility] 58 60 [facility] [place] [address] 08/18/2023 4:00 PM EST [facility] 132 [facility] [place] [address] Danitza Salinas RN 132 [facility] [place] [address] 2023 10:00 AM EST Office Visit Pulmonary Medicine, [facility] [address] [place] [address] Grey Green MD [address] [facility] [place] [address] 03/28/2024 2:00 PM EDT Office Visit Rheumatology [address] [place] [address] Yudi Horowitz CRNP [address] [place] [address] [place] [address] 07/25/2024 11:40 AM EST Office Visit Sleep Disorders Ctr [facility] 132 [facility] [place] [phone] Marnie Hartman DO [address] [place] [address] Scheduled Procedures Name Priority Associated Diagnoses Date/Ti [...] Additional history exists CKD PHOS USE SMARTSET 59521 07/02/202306/23, 07/01/2021, 03/22/2020 Diabetic Eye Exam 07/20/2023 [...] Scan 03/11/2024 03/11/2023 CKD HGB USE SMARTSET 05083 03/29/202403/29, 03/29/2023, 12/01/2022, Additional history exists Albumin/Creatinine Ratio 05/31/2024 023, 10/20/2021, 08/11/2017, Additional history exists DTaP,Tdap,and Td Vaccines (3 - Td or Tdap) 01/11/2028 01/10/2018, 10/03/2012 Pneumococcal Vaccine: 65+ Years Completed 05/14/2015, 09/11/2009, 07/12/2003 Zoster Vaccines Completed 03/22/2020, 08/30/2019 COLONOSCOPY-EVERY 5 YRS AGES 18-100 Discontinued 11/19/2020, 11/19/2020, 05/16/2015, Additional history exists Alpha-1 Antitrypsin Completed 03/11/2022 VITAMIN D LEVEL ONCE IN A LIFETIME-USE SMARTSET# [id number] Completed 03/29/2023, 05/12/2014 Influenza Vaccine (FLU shot) [...] the patient have Health Care Power of Billing Spec? No Full Code 08/14/2010 2:57 PM 08/15/2010 2:24 PM Thi s order reflects the patients wishes and were consensually agreed upon.
--- OUTSIDE RECORDS SUMMARY | 2023-08-28 08:33 | External Medical Summary | Summary of Care ---
Author Name Unknown Organization [facility] Address [address] [facility] [place] [address] Phone [phone] Care Team Providers Care Correctional Officer Lieutenant Name Role Phone Unavailable Primary Care Provider Unavailabl e Reason for Visit * Reason Onset Date Comments Insurance 07/30/2023 65 Fwd Tour/requ irements Encounter Details Date Type Department Care Team (Late st Contact Info) Description 07/30/2023 Telephone Family Practice 65 [facility] [address] [place] [address] Gya Lóepz, [address] [place] [address] Insurance (65 Fwd Tour/requirements) Allergies Active Allergy Reactions Criticality Noted Date Comments Propoxyphene N-Acetaminophen 06/22/2012 N/V Fentanyl Nausea/vomiting 10/15/2009 Oxycodone High 01/21/2023 Other reaction(s): vomiting Oxycodone-Acetaminophen Nausea/vomiting High 010 documented as of this encounter (statuses as of 07/30/2023) Medications Medication Sig Dispensed Refills Start Date [...] Each 0 04/09/2022 Active oxygen IN GASIndications: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 bobbi respiratory failure with hypoxia (HCC),Centrilobular [...] 90 Tablet 2 11/13/2022 4 Active Umeclidinium [place] 62.5 MCG/ACT Inhalation Aerosol Powder Breath Activated (INCRUSE ellipta)Indications :COPD, group B, by GOLD 2017 classification ([facility]) INHALE ONE PUFF BY MOUTH EVERY [...] 12 Hour (Ranexa)Indications :Coronary artery disease of [place] artery of [place] heart with stable angina pectoris ([facility]) TAKE ONE TABLET BY MOUTH TWICE [...] hemoglobin A1c goal of less than 8.0% ([facility]) Inject 15 Units under the skin [...] as of this encounter (statuses as of 07/30/2023) Active Problems Problem Noted Date Diagnosed Date [...] 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 Obstructive sleep apnea 01/13/2010 Overview: ICD-10 update of inactive term Last Assessment & Plan: Compliant with CPAP Old myocardial infarction 10/25/2009 Lumbar disc disorder with myelopathy 10/15/2009 Overview: Fentanyl patch caused severe nausea and vomiting Failed ultram Oxycodone caused nausea Preglaucoma 08/29/1998 History of TIA (transient ischemic attack) documented as of this encounter (statuses as of 07/30/2023) Resolved Problems Problem Noted Date Diagnosed Date [...] as of this encounter (statuses as of 07/30/2023) Immunizations Name Administration Dates Next Due COVID-19 [...] encounter Miscellaneous Notes * Telephone Encounter - Kymberly Burger OSA - 07/30/2023 3:56 PM EST Discussed GOLD requirement, patient acknowledges and understands. Pt aware to keep/maintain jessica gold coverage. Tour given today, 07.30.23. Pt scheduled with Dr. López on 09.03.23 documented in this encounter Plan of Treatment Upcoming Encounters Date Type Department Care Team (Late st Contact Info) Description 08/09/2023 9:40 AM EST Laboratory Lab Mobile Phlebotomy [facility] [address] [place] [address] [facility], [facility] Mobile Home Draw [address] [place] [address] 08/10/2023 6:00 AM EST Anticoagulation Pharmacy Call Center 58-[address] [place] [address] [facility], [facility] 58 60 [facility] [place] [address] 08/18/2023 4:00 PM EST [facility] Visit [facility] 132 [facility] [place] [address] Danitza Salinas, RN 132 [place] [address] 09/03/2023 1:20 PM EST Pharmacy Family Practice 65 [facility] [address] [place] [address] College, Pharmacist 65 [facility] 293 [place] [address] 09/03/2023 1:40 PM EST Office Visit Family Practice 65 [facility] 293 [place] [phone] Gay López DO 293 [place] [address] 2023 10:00 AM EST Office Visit Pulmonary Medicine, [facility] 132 [facility] [place] [address] Grey Green MD [address] [place] [address] 03/28/2024 2:00 PM EDT Office Visit Rheumatology [place] [address] [employer] [place] [address] Yudi Horowitz CRNP [facility]0 [employer] [place] [address] 07/25/2024 11:40 AM EST Office Visit Sleep Disorders Ctr [facility] 132 [facility] [place] [phone] Marnie Hartman DO 132 [facility] [place] [address] Scheduled Procedures Name Priority Associated Diagnoses Date/Ti [...] Additional history exists CKD PHOS USE SMARTSET 78380 07/02/202306/23, 07/01/2021, 03/22/2020 Diabetic Eye Exam 07/20/2023 [...] Scan 03/11/2024 03/11/2023 CKD HGB USE SMARTSET 85777 03/29/202403/29, 03/29/2023, 12/01/2022, Additional history exists Albumin/Creatinine Ratio 05/31/2024 023, 10/20/2021, 08/11/2017, Additional history exists DTaP,Tdap,and Td Vaccines (3 - Td or Tdap) 01/11/2028 01/10/2018, 10/03/2012 Pneumococcal Vaccine: 65+ Years Completed 05/14/2015, 09/11/2009, 07/12/2003 Zoster Vaccines Completed 03/22/2020, 08/30/2019 COLONOSCOPY-EVERY 5 YRS AGES 18-100 Discontinued 11/19/2020, 11/19/2020, 05/16/2015, Additional history exists Alpha-1 Antitrypsin Completed 03/11/2022 VITAMIN D LEVEL ONCE IN A LIFETIME-USE SMARTSET# [id number] Completed 03/29/2023, 05/12/2014 Influenza Vaccine (FLU shot) [...] the patient have Health Care Power of Tactical Response Group Officer? No Full Code 08/14/2010 2:57 PM 08/15/2010 2:24 PM Thi s order reflects the patients wishes and were consensually agreed upon.
--- OUTSIDE RECORDS SUMMARY | 2023-08-28 08:33 | External Medical Summary | Summary of Care ---
Author Name Unknown Organization [facility] Address [address] [facility] [place] [address] Phone [phone] Care Team Providers Care Thermometer Maker Name Role Phone Unavailable Primary Care Provider Unavailabl e Reason for Visit * Reason Comments Dosage Adjustment Via Phone (anticoag Cl inic) Encounter Details Date Type Department Care Team (Latest Contact Info) Description 07/27/2023 6:00 AM EST Anticoagulation Pharmacy Call Center [address] [place] [address] [facility] 58 60 [facility] [place] [address] Anticoagulation management encounter* Allergies Active Allergy Reactions [...] 1 Each 0 04/09/2022 Active oxygen IN GASIndications: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 respiratory failure with hypoxia (HCC),Centrilobular [...] 90 Tablet 2 11/13/2022 4 Active Umeclidinium Arthur 62.5 MCG/ACT Inhalation Aerosol Powder Breath Activated (INCRUSE ellipta)Indications :COPD, group B, by GOLD 2017 classification ([facility]) INHALE ONE PUFF BY MOUTH EVERY DAY [...] 12 Hour (Ranexa)Indications :Coronary artery disease of [place] artery of [place] heart with stable angina pectoris ([facility]) TAKE ONE TABLET BY MOUTH TWICE A [...] A1c goal of less than 8.0% ([facility]) Inject 15 Units under the skin in [...] artery disease of n ative artery of [place] heart with stable angina pectoris 01/30/2017 Overview: More specific. 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 Last Assessment & Plan: Cognition at baseline -not tolerating Aricept HTN (hypertension) 09/28/2012 Atherosclerosis of [place] artery of extremity Obstructive sleep apnea 01/13/2010 [...] this encounter Progress Notes * Cindi Gonsalez, apparatus operator - 07/27/2023 9:22 AM EST Contacts Type Contact Phone/Fax 07/27/2023 09:21 AM EST Phone (Outgoing) Kaleb Oakley (Self) [phone] (H) Left Message Subjective Advised patient to contact Anticoagulation Clinic if any unusual bruising or bleeding, recent illness, changes in medication, or questions/concerns. PT/INR results, Coumadin dose instructions, and next PT/INR date communicated as noted by Pharmacist: Yes SHIKHA HARRIS 07/27/2023, 9:22 AM * Layne Fuller RPh - 07/27/2023 8:37 AM EST Coumadin Clinic (region specific) Objective Current Warfarin Dose As of 07/27/2023 Warfarin maintenance plan: 5 mg (5 mg x 1) every Mon; 2.5 mg (5 mg x 0.5) all other days INR Result As of 07/27/2023 INR goal: 2.0-3.0 INR used for dosin.7 (07/26/2023) Assessment & Plan Warfarin Plan As of 07/27/2023 Full warfarin instructions: 5 mg every Mon; 2.5 mg all other days No change documented: Layne Fuller RPh Next INR check: 08/09/2023 Repeat PT/INR in 2 week(s) Weekly dose: not changed Additional Dosing Information: Description L Tech to contact patient with dose instructions as noted. Layne Fuller RPh 07/27/2023, 8:37 AM documented in this encounter Plan of Treatment Upcoming Encounters Date Type Department Care Team (Late st Contact Info) Description 08/10/2023 6:00 AM EST Anticoagulation Pharmacy Call Center WB [address] [place] [address] [facility] 58 60 [facility] [place] [address] 08/18/2023 4:00 PM EST [facility], [facility] 132 [facility] [place] [address] Danitza Salinas, RN 132 [facility] [place] [address] 2023 10:00 AM EST Office Visit Pulmonary Medicine, [facility] 132 [facility] [place] [address] Grey Green MD [address] [facility] [place] [address] 03/28/2024 2:00 PM EDT Office Visit Rheumatology [place] [phone] [facility] [place] [address] Yudi Horowitz CRNP [facility] [place] [facility] [employer] [place] [address] 07/25/2024 11:40 AM EST Office Visit Sleep Disorders Ctr [facility] 132 [facility] [place] [phone] Marnie Hartman, 132 [facility] [place] [phone] Scheduled Procedures Name Priority Associated Diagnoses Date/Ti [...] Additional history exists CKD PHOS USE SMARTSET 22196 07/02/202306/23, 07/01/2021, 03/22/2020 Diabetic Eye Exam 07/20/2023 [...] Scan 03/11/2024 03/11/2023 CKD HGB USE SMARTSET 14461 03/29/202403/29, 03/29/2023, 12/01/2022, Additional history exists Albumin/Creatinine Ratio 05/31/2024 023, 10/20/2021, 08/11/2017, Additional history exists DTaP,Tdap,and Td Vaccines (3 - Td or Tdap) 01/11/2028 01/10/2018, 10/03/2012 Pneumococcal Vaccine: 65+ Years Completed 05/14/2015, 09/11/2009, 07/12/2003 Zoster Vaccines Completed 03/22/2020, 08/30/2019 COLONOSCOPY-EVERY 5 YRS AGES 18-100 Discontinued 11/19/2020, 11/19/2020, 05/16/2015, Additional history exists Alpha-1 Antitrypsin Completed 03/11/2022 VITAMIN D LEVEL ONCE IN A LIFETIME-USE SMARTSET# [id number] Completed 03/29/2023, 05/12/2014 Influenza Vaccine (FLU shot) [...] Code 08/10/2022 7:57 AM 08/10/2022 7:57 AM Th is order reflects the patients wishes [...] the patient have Health Care Power of Hydrodynamicist? No Full Code 08/14/2010 2:57 PM 08/15/2010 2:24 PM Thi s order reflects the patients wishes and were consensually agreed upon.
--- OUTSIDE RECORDS SUMMARY | 2023-08-28 08:34 | External Medical Summary | Summary of Care ---
Author Name Unknown Organization [facility] Address [address] [facility] [place] [address] Phone [phone] Care Team Providers Care Wood Getter Name Role Phone Unavailable Primary Care Provider Unavailabl e Reason for Visit * Reason Comments [facility]: Maintenance Encounter Details Date Type Department Care Team (Late st Contact Info) Description 07/19/2023 4:00 PM EST [facility] Visit [facility], [facility] [address] [place] [address] Danitza Salinas RN [address] [place] [address] Allergies Active Allergy Reactions Criticality Noted Date Comments Propoxyphene N-Acetaminophen 06/22/2012 N/V Fentanyl Nausea/vomiting 10/15/2009 Oxycodone High 01/21/2023 Other reaction(s): vomiting Oxycodone-Acetaminophen Nausea/vomiting High 010 documented as of this encounter (statuses as of 07/19/2023) Medications Medication Sig Dispensed Refills Start Date [...] 1 Each 0 04/09/2022 Active oxygen IN GASIndications: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 respiratory failure with hypoxia [...] 90 Tablet 2 11/13/2022 4 Active Umeclidinium [place] 62.5 MCG/ACT Inhalation Aerosol Powder Breath Activated (INCRUSE ellipta)Indications :COPD, group B, by GOLD 2017 classification ([facility]) INHALE ONE PUFF BY MOUTH [...] 12 Hour (Ranexa)Indications :Coronary artery disease of [place] artery of [place] heart with stable angina pectoris ([facility]) TAKE ONE TABLET BY MOUTH [...] hemoglobin A1c goal of less than 8.0% ([facility]) Inject 15 Units under the [...] as of this encounter (statuses as of 07/19/2023) Active Problems Problem Noted Date Diagnosed Date [...] artery disease of n ative artery of [place] heart with stable angina pectoris 01/30/2017 Overview: More specific. 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 Last Assessment & Plan: Cognition at baseline -not tolerating Aricept HTN (hypertension) 09/28/2012 Atherosclerosis of [place] artery of extremity Obstructive sleep apnea 01/13/2010 Overview: ICD-10 update of inactive term Last Assessment & Plan: Compliant with CPAP Old myocardial infarction 10/25/2009 Lumbar disc disorder with myelopathy 10/15/2009 Overview: Fentanyl patch caused severe nausea and vomiting Failed ultram Oxycodone caused nausea Preglaucoma 08/29/1998 History of TIA (transient ischemic attack) documented as of this encounter (statuses as of 07/19/2023) Resolved Problems Problem Noted Date Diagnosed Date [...] as of this encounter (statuses as of 07/19/2023) Immunizations Name Administration Dates Next Due COVID-19 [...] Sign Reading Time Taken Comments Blood Pressure 132/76 07/19/2023 4:05 PM EST Pulse 64 07/19/2023 4:05 PM EST Temperature 36.2 C (97.1 F) 07/19/2023 4:05 PM ES T Respiratory Rate 18 07/19/2023 4:05 PM EST Oxygen Saturation 91% 07/19/2023 4:05 PM EST Inhaled Oxygen Concentration - - [...] Progress Notes * Danitza Salinas, RN - 07/19/2023 4:00 PM EST [facility] Substation Inspector Monthly Visit Date: 07/19/2023 Time: 4:04 PM Name: Kaleb Oakley : 1945 Current Concerns: Pt seen for return RNCM visit He reports he has been feeling well No recent falls - has been using his roller walker No longer has Dr. Garcia for PCP - he recently moved to another area He is going to check into [address] Has only been checking blood sugar if he feels it is low or high He does not check it with insulin administration - educated on this to be checking before giving insulin dose Wears CPAP at night - oxygen at 3 l/min via PR qhs and as needed if SOB Has a portable concentrator Denies any acute concerns Vitals stable Lungs clear bilaterally Physical Exam: BP 132/76 | Pulse 64 | Temp 36.2 C (97.1 F) | Resp 18 | SpO2 91% Pain 0 Physical Exam Constitutional: General: He is not in acute distress. Cardiovascular: Rate and Rhythm: Normal rate and regular rhythm. Pulses: Normal pulses. Heart sounds: Normal heart sounds. Pulmonary: Effort: Pulmonary effort is normal. Breath sounds: Normal breath sounds. Abdominal: Palpations: Abdomen is soft. Skin: General: Skin is warm and dry. Neurological: Mental Status: He is alert and oriented to person, place, and time. Problems/Symptoms: Review of Systems Constitutional: Negative. Eyes: Negative. Respiratory: Positive for shortness of breath ([place] - at baseline). Cardiovascular: Negative. Gastrointestinal: Negative. Genitourinary: Negative. Musculoskeletal: Positive for arthralgias, back pain and gait problem. Hematological: Bruises/bleeds easily. Psychiatric/Behavioral: Negative. Medication Reconciliation: (See medication list) Does patient take medications as ordered: Yes Patient Well Being: PHQ2/9: No questionnaires available. No change in living situation Denies any recent falls [facility]-10 Completed this Visit: No. Routine visit and [...] exercises that will be right for you. DIABETES: -Blood sugar testing schedule: Twice a day, once in the morning and again 2 hours after a meal. -Blood sugar goals: Less than 120, fasting and less than 180, 2 hours after a meal -Record and take to PCP appointments -Notify your doctor if your blood sugar is consistently above goal -Hypoglycemia (low blood sugar) action plan: If blood sugar is less than 70 or having symptoms of low blood sugar eat or drink a snack of 15gm of carbohydrate (2-3 glucose tablets, glass juice, 1Cnon-fat milk, etc) wait 15 min if blood sugar still low repeat snack, wait 15 minutes if still low call health care provider. Ask provider if a medication adjustment is needed if experiencing low blood sugars frequently, twice a week or more. -Hyperglycemia (high blood sugar) action Plan: Take medications as directed, test blood sugars frequently, if above goal, contact your health care provider. Ask for changes to medication if blood sugars continue to run above goal. -Eat three well balanced meals a day 5 servings fruit/vegetable per day Reinforced safety education and fall prevention. and Reinforced medication regimen. Timing., Dosing., and Purspose. Treatment/Plan: Continue medications as prescribed Keep all upcoming MD appointment Fall precautions Fluids encouraged Blood sugars prn Aspercreme with Lidocaine for pain Uses cbd gummies for pain Home Interventions Provided: Home Intervention: Other; eval Reinforced current Plan of Care, including self-management and medication regimen Patient's 'Red Flags': Increased weakness Change in mental status/confusion Uncontrolled pain Patient Needs to Remember: Call [facility] at with any new or worsening health concerns or problems, red flag symptoms. Referrals Needed: Other none Follow Up: Is there cellular connectivity/connectivity in the home? Yes Does the patient have internet in the home? Yes Patient encouraged to call the intake phone number for all urgent but not emergent issues. Is the patient new to [facility] within the last 30 days? No, Assess appropriateness for upcoming telehealth visits. Cancel telehealth visits & schedule home visit with care environmental field team member(s)as indicated. Provider is in agreement with Plan of Care: Yes Scheduled to follow up with patient in one month. Danitza Salinas RN 07/19/2023 4:04 PM documented in this encounter Plan of Treatment Upcoming Encounters Date Type Department Care Team (Late st Contact Info) Description 07/21/2023 10:00 AM EST Scheduled Telephone [facility], [facility] 132 [place] [address] [facility] Nurse Triage [address] [place] [address] 07/22/2023 3:00 PM EST Office Visit Sleep Disorders Ctr [facility] 132 [facility] [place] [phone] Marnie Hartman, 132 [facility] [place] [address] 07/26/2023 9:10 AM EST Laboratory Lab Mobile Phlebotomy [facility] [address] [place] [address] Gm, [facility] Mobile Home Draw [address] [place] [address] 07/27/2023 6:00 AM EST Anticoagulation Pharmacy Call Center [address] [place] [address] Ccp, [facility] 58 60 [place] [address] 08/18/2023 4:00 PM EST [facility] 132 [facility] [place] [address] Danitza Salinas, RN 132 [facility] [place] [address] 03/28/2024 2:00 PM EDT Office Visit Rheumatology [address] [place] [address] Yudi Horowitz CRNP [address] [place] [address] [place] [address] Scheduled Procedures Name Priority Associated Diagnoses Date/Ti me COLONOSCOPY FLEXIBLE PROXIMAL DIAGNOSTIC Recall History of colon polyps Health Maintenance Due Date Last Done Comments Hepatitis B (1 of 3 - Risk 3-dose series) 2004 COLONOSCOPY-EVERY 2 YRS AGES 18-100 11/19/2022 11/19/2020, 11/19/2020, 05/16/2015, Additional history exists Diabetic Foot Exam 02/06/2023 02/06/2022, 0 08/30/2019, 08/18/2018, Additional history exists COVID-19 Vaccine (6 - 2022- season) 2023 12/23/2021, 07/24/2021, 07/24/2021, Additional history exists CKD PHOS USE SMARTSET 58238 07/02/202306/23, 07/01/2021, 03/22/2020 Diabetic Eye Exam 07/20/2023 [...] Scan 03/11/2024 03/11/2023 CKD HGB USE SMARTSET 48435 03/29/202403/29, 03/29/2023, 12/01/2022, Additional history exists Albumin/Creatinine Ratio 05/31/2024 023, 10/20/2021, 08/11/2017, Additional history exists DTaP,Tdap,and Td Vaccines (3 - Td or Tdap) 01/11/2028 01/10/2018, 10/03/2012 Pneumococcal Vaccine: 65+ Years Completed 05/14/2015, 09/11/2009, 07/12/2003 Zoster Vaccines Completed 03/22/2020, 08/30/2019 COLONOSCOPY-EVERY 5 YRS AGES 18-100 Discontinued 11/19/2020, 11/19/2020, 05/16/2015, Additional history exists Alpha-1 Antitrypsin Completed 03/11/2022 VITAMIN D LEVEL ONCE IN A LIFETIME-USE SMARTSET# [id number] Completed 03/29/2023, 05/12/2014 Influenza Vaccine (FLU shot) [...] the patient have Health Care Power of Classifier Operator? No Full Code 08/14/2010 2:57 PM 08/15/2010 2:24 PM Thi s order reflects the patients wishes and were consensually agreed upon.
--- OUTSIDE RECORDS SUMMARY | 2023-08-28 08:34 | External Medical Summary | Summary of Care ---
Author Name Unknown Organization [facility] Address [address] [facility] [place] [address] Phone [phone] Care Team Providers Care Netezza Architect Name Role Phone Unavailable Primary Care Provider Unavailabl e Encounter Details Date Type Department Care Team (Late st Contact Info) Description 07/07/2023 Population Health External Data Unspecified Department Allergies Active Allergy Reactions Criticality Noted Date Comments Propoxyphene N-Acetaminophen 06/22/2012 N/V Fentanyl Nausea/vomiting 10/15/2009 Oxycodone High 01/21/2023 Other reaction(s): vomiting Oxycodone-Acetaminophen Nausea/vomiting High 010 documented as of this encounter (statuses as of 07/07/2023) Medications Medication Sig Dispensed Refills Start Date [...] 1 Each 0 04/09/2022 Active oxygen IN GASIndications: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 respiratory failure with hypoxia (HCC),Centrilobular emphysema [...] 90 Tablet 2 11/13/2022 4 Active Umeclidinium [place] 62.5 MCG/ACT Inhalation Aerosol Powder Breath Activated (INCRUSE ellipta)Indications :COPD, group B, by GOLD 2017 classification ([facility]) INHALE ONE PUFF BY MOUTH [...] WEEK 110 Tablet 3 10/23/2022 4 Active Pantoprazole Sodium 40 MG Oral Tablet Delayed Release (Protonix)Indicatio ns:Gastroesophageal reflux disease TAKE ONE TABLET BY MOUTH EVERY DAY 90 Tablet 2 10/06/2022 4 Active Atorvastatin Calcium 80 MG Oral Tablet (Lipitor)Indication s:Dyslipidemia, goal LDL below 100 TAKE ONE TABLET BY MOUTH EVERY DAY 90 Tablet 0 10/06/2022 4 Active Ranolazine ER 500 MG Oral Tablet Extended Release 12 Hour (Ranexa)Indications :Coronary artery disease of [place] artery of [place] heart with stable angina pectoris ([facility]) TAKE ONE TABLET BY MOUTH [...] goal of less than 8.0% ([facility]) Inject 15 Units under the skin in the morning and 15 Units at noon and 15 Units before bedtime. With meals. DISPENSE 5 vials. 0 05/20/2023 Active Memantine HCl 5 MG Oral Tablet (Namenda)Indication s:Dementia in Alzheimer's disease ([facility]) TAKE ONE TABLET BY MOUTH IN THE MORNING AND ONE TABLET BEFORE BEDTIME 60 Tablet 5 06/19/2023 4 Active documented as of this encounter (statuses as of 07/07/2023) Active Problems Problem Noted Date Diagnosed Date [...] artery disease of n ative artery of [place] heart with stable angina pectoris 01/30/2017 Overview: More specific. 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 Last Assessment & Plan: Cognition at baseline -not tolerating Aricept HTN (hypertension) 09/28/2012 Atherosclerosis of [place] artery of extremity Obstructive sleep apnea 01/13/2010 Overview: ICD-10 update of inactive term Last Assessment & Plan: Compliant with CPAP Old myocardial infarction 10/25/2009 Lumbar disc disorder with myelopathy 10/15/2009 Overview: Fentanyl patch caused severe nausea and vomiting Failed ultram Oxycodone caused nausea Preglaucoma 08/29/1998 History of TIA (transient ischemic attack) documented as of this encounter (statuses as of 07/07/2023) Resolved Problems Problem Noted Date Diagnosed Date [...] as of this encounter (statuses as of 07/07/2023) Immunizations Name Administration Dates Next Due COVID-19 [...] Care Team (Late st Contact Info) Description 07/12/2023 8:40 AM EST Laboratory Lab Mobile Phlebotomy [facility] [address] [place] [address] [facility] Mobile Home Draw [address] [place] [address] 07/13/2023 6:00 AM EST Anticoagulation Pharmacy Call Center WB [address] [facility] [place] [address] Ccps, [facility] 58 60 [facility] [place] [address] 07/19/2023 4:00 PM EST [facility] Visit [facility], [facility] 132 [facility] [place] [address] Danitza Salinas, RN 132 [facility] [place] [address] 07/21/2023 10:00 AM EST Scheduled Telephone [facility], [facility] [address] [place] [address] [facility] Nurse Triage 132 [facility] [place] [address] 07/22/2023 3:00 PM EST Office Visit [facility] Disorders Ctr [facility] 132 [facility] [place] [phone] Marnie Hartman DO [address] [place] [address] 03/28/2024 2:00 PM EDT Office Visit Rheumatology [address] [place] [address] Yudi Horowitz CRNP [address] [place] [address] [place] [address] Scheduled Procedures Name Priority Associated Diagnoses Date/Ti [...] Additional history exists CKD PHOS USE SMARTSET 38126 07/02/202306/23, 07/01/2021, 03/22/2020 Diabetic Eye Exam 07/20/2023 [...] Scan 03/11/2024 03/11/2023 CKD HGB USE SMARTSET 31469 03/29/202403/29, 03/29/2023, 12/01/2022, Additional history exists Albumin/Creatinine Ratio 05/31/2024 023, 10/20/2021, 08/11/2017, Additional history exists DTaP,Tdap,and Td Vaccines (3 - Td or Tdap) 01/11/2028 01/10/2018, 10/03/2012 Pneumococcal Vaccine: 65+ Years Completed 05/14/2015, 09/11/2009, 07/12/2003 Zoster Vaccines Completed 03/22/2020, 08/30/2019 COLONOSCOPY-EVERY 5 YRS AGES 18-100 Discontinued 11/19/2020, 11/19/2020, 05/16/2015, Additional history exists Alpha-1 Antitrypsin Completed 03/11/2022 VITAMIN D LEVEL ONCE IN A LIFETIME-USE SMARTSET# [id number] Completed 03/29/2023, 05/12/2014 Influenza Vaccine (FLU shot) [...] the patient have Health Care Power of Clinical Documentation Clerk? No Full Code 08/14/2010 2:57 PM 08/15/2010 2:24 PM Thi s order reflects the patients wishes and were consensually agreed upon.
--- OUTSIDE RECORDS SUMMARY | 2023-08-28 08:34 | External Medical Summary | Summary of Care ---
Author Name Unknown Organization [facility] Address [address] [facility] [place] [address] Phone [phone] Care Team Providers Care Fifth Grade Teacher Name Role Phone Zachariah Duarte DO Primary Care Provider [phone] Encounter Details Date Type Department Care Team (Late st Contact Info) Description 06/29/2023 Telephone Cardiology, [facility] [address] [place] [address] Faby Singleton PA-C [address] [place] [address] Allergies Active Allergy Reactions Criticality Noted Date Comments Propoxyphene N-Acetaminophen 06/22/2012 N/V Fentanyl Nausea/vomiting 10/15/2009 Oxycodone High 01/21/2023 Other reaction(s): vomiting Oxycodone-Acetaminophen Nausea/vomiting High 010 documented as of this encounter (statuses as of 07/02/2023) Medications Medication Sig Dispensed Refills Start Date [...] 1 Each 0 04/09/2022 Active oxygen IN GASIndications: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 respiratory failure with hypoxia (HCC),Centrilobular emphysema [...] 90 Tablet 2 11/13/2022 4 Active Umeclidinium Concord 62.5 MCG/ACT Inhalation Aerosol Powder Breath Activated (INCRUSE ellipta)Indications :COPD, group B, by GOLD 2017 classification ([facility]) INHALE ONE PUFF BY MOUTH EVERY DAY [...] 12 Hour (Ranexa)Indications :Coronary artery disease of hughes artery of hughes heart with stable angina pectoris ([facility]) TAKE ONE TABLET BY MOUTH TWICE A [...] hemoglobin A1c goal of less than 8.0% ([facility]) Inject 15 Units under the skin in [...] as of this encounter (statuses as of 07/02/2023) Active Problems Problem Noted Date Diagnosed Date [...] artery disease of n ative artery of hughes heart with stable angina pectoris 01/30/2017 Overview: More specific. 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 Last Assessment & Plan: Cognition at baseline -not tolerating Aricept HTN (hypertension) 09/28/2012 Atherosclerosis of hughes artery of extremity Obstructive sleep apnea 01/13/2010 Overview: ICD-10 update of inactive term Last Assessment & Plan: Compliant with CPAP Old myocardial infarction 10/25/2009 Lumbar disc disorder with myelopathy 10/15/2009 Overview: Fentanyl patch caused severe nausea and vomiting Failed ultram Oxycodone caused nausea Preglaucoma 08/29/1998 History of TIA (transient ischemic attack) documented as of this encounter (statuses as of 07/02/2023) Resolved Problems Problem Noted Date Diagnosed Date [...] as of this encounter (statuses as of 07/02/2023) Immunizations Name Administration Dates Next Due COVID-19 [...] or making decisions? (5 years old or older No 03/01/2019 documented as of this encounter Miscellaneous Notes * Telephone Encounter - Faby Singleton PA-C - 06/30/2023 4:24 PM EST Given extensive coronary artery disease and PVD, patient should at least be taking ASA 81 mg daily I do not see this on his med list. He was only taking Plavix and coumadin. But when Plavix was stopped he should have been started on aspirin. If he is not taking, he needs to start * Telephone Encounter - Magaly Trinidad LPN - 06/30/2023 3:26 PM EST Spoke with pt. Per the patient Dr. Duarte stopped plavix 3-4 months ago d/t pt concern over cost - [facility] * Telephone Encounter - Bernie Joyner OSA - 06/30/2023 3:23 PM EST Reason for patient's call: returning call Caller was transferred to Magaly at the nurse line. * Telephone Encounter - Belgica Montes De Oca CMA - 06/30/2023 2:25 PM EST Attempted to contact patient by phone, no answer. Left brief message on unidentified VM for patient to return call. * Telephone Encounter - Faby Singleton PA-C - 06/29/2023 3:13 PM EST Received message from interventional pain clinic today. Contemplating lumbar epidural steroid injection which would require 5 day coumadin hold. He takes coumadin for history of DVT, atrial flutter and history of TIA's. Also history of CAD. He would require Lovenox bridge given high CHADSVASC score Per review of med list, it also appears Plavix was discontinued today. I confirmed with pain management provider that patient requested this be removed. Nursing staff - please call patient and see who stopped plavix and when patient stopped. He should be taking Plavix AND coumadin with his history. documented in this encounter Plan of Treatment Upcoming Encounters Date Type Department Care Team (Late st Contact Info) Description 07/12/2023 8:40 AM EST Laboratory Lab Mobile Phlebotomy [facility] [address] [place] [address] [facility], [facility] Mobile Home Draw [address] [place] [address] 07/13/2023 6:00 AM EST Anticoagulation Pharmacy Call Center [address] [facility] [place] [address] [facility] 58 60 [facility] [place] [address] 07/19/2023 4:00 PM EST [facility] Visit [facility], [facility] [address] [place] [address] Danitza Salinas, SWAPNA [address] [place] [address] 07/21/2023 10:00 AM EST Scheduled Telephone [facility], [facility] [address] [place] [address] [facility] Nurse Triage [address] [place] [address] 07/22/2023 3:00 PM EST [facility] [address] [place] [phone] Marnie Hartman DO [address] [place] [address] 03/28/2024 2:00 PM EDT Office Visit Rheumatology [facility] [address] [place] [address] Yudi Horowitz CRNP [address] [facility] [place] [address] Scheduled Procedures Name Priority Associated Diagnoses Date/Ti [...] Additional history exists CKD PHOS USE SMARTSET 51399 07/02/202306/23, 07/01/2021, 03/22/2020 Diabetic Eye Exam 07/20/2023 [...] Scan 03/11/2024 03/11/2023 CKD HGB USE SMARTSET 95360 03/29/202403/29, 03/29/2023, 12/01/2022, Additional history exists Albumin/Creatinine Ratio 05/31/2024 023, 10/20/2021, 08/11/2017, Additional history exists DTaP,Tdap,and Td Vaccines (3 - Td or Tdap) 01/11/2028 01/10/2018, 10/03/2012 Pneumococcal Vaccine: 65+ Years Completed 05/14/2015, 09/11/2009, 07/12/2003 Zoster Vaccines Completed 03/22/2020, 08/30/2019 COLONOSCOPY-EVERY 5 YRS AGES 18-100 Discontinued 11/19/2020, 11/19/2020, 05/16/2015, Additional history exists Alpha-1 Antitrypsin Completed 03/11/2022 VITAMIN D LEVEL ONCE IN A LIFETIME-USE SMARTSET# [id number] Completed 03/29/2023, 05/12/2014 Influenza Vaccine (FLU shot) [...] the patient have Health Care Power of Medical Officer Psychiatry? No Full Code 08/14/2010 2:57 PM 08/15/2010 2:24 PM Thi s order reflects the patients wishes and were consensually agreed upon. Care Teams Fifth Grade Teacher Relationship Specialty Start Date End Date Zachariah Duarte DO PCP - General Family Medicine 12/20/20 06/30/23 documented as of this encounter
--- OUTSIDE RECORDS SUMMARY | 2023-08-28 08:34 | External Medical Summary | Summary of Care ---
Author Name Unknown Organization [facility] Address [address] [facility] [place] [address] Phone [phone] Care Team Providers Care Sports Teacher Name Role Phone Zachariah Duarte DO Primary Care Provider [phone] Reason for Visit * Reason Onset Date Comments Information 06/29/2023 Encounter Details Date Type Department Care Team (Late st Contact Info) Description 06/29/2023 Telephone Cardiology, [facility] [address] [place] [address] Faby Singleton, KINGSLEY [address] [place] [phone] Information Allergies Active Allergy Reactions Criticality Noted Date Comments Propoxyphene N-Acetaminophen 06/22/2012 N/V Fentanyl Nausea/vomiting 10/15/2009 Oxycodone High 01/21/2023 Other reaction(s): vomiting Oxycodone-Acetaminophen Nausea/vomiting High 010 documented as of this encounter (statuses as of 07/06/2023) Medications Medication Sig Dispensed Refills Start Date End Date Status SYRINGE (DISPOSABLE) 5 ML MISCIndications:DM type 2 causing neurological disease (HCC) use as directed for lantus 1 box 11 09/11/2009 Active ONETOUCH ULTRA 2 W/DEVICE KITIndications:DM type 2, goal A1C 7-8 use as directed 1 Kit 0 03/09/2012 Active Stealth10TOUCH DELICA LANCETS MISCIndications:DM type 2, goal A1C [...] 1 Each 0 04/09/2022 Active oxygen IN GASIndications: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 With meals. DISPENSE 5 vials. 0 05/20/2023 Active Memantine HCl 5 MG Oral Tablet (Namenda)Indication s:Dementia in Alzheimer's disease ([facility]) TAKE ONE TABLET BY MOUTH IN THE MORNING AND ONE TABLET BEFORE BEDTIME 60 Tablet 5 06/19/2023 4 Active documented as of this encounter (statuses as of 07/06/2023) Active Problems Problem Noted Date Diagnosed Date [...] artery disease of n ative artery of quinault heart with stable angina pectoris 01/30/2017 Overview: More specific. 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 Last Assessment & Plan: Cognition at baseline -not tolerating Aricept HTN (hypertension) 09/28/2012 Atherosclerosis of quinault artery of extremity Obstructive sleep apnea 01/13/2010 Overview: ICD-10 update of inactive term Last Assessment & Plan: Compliant with CPAP Old myocardial infarction 10/25/2009 Lumbar disc disorder with myelopathy 10/15/2009 Overview: Fentanyl patch caused severe nausea and vomiting Failed ultram Oxycodone caused nausea Preglaucoma 08/29/1998 History of TIA (transient ischemic attack) documented as of this encounter (statuses as of 07/06/2023) Resolved Problems Problem Noted Date Diagnosed Date [...] as of this encounter (statuses as of 07/06/2023) Immunizations Name Administration Dates Next Due COVID-19 mRNA, LNP-s, No Pre serve, 2-Dose Series (Moderna) 12/23/2021,07/24/2021,01/10/2021,12/13 COVID-19, mRNA, LNP-s, PF, B ooster, 100mcg/0.5mg (Moderna) 07/24/2021 H1N1 2009 Influenza, IM 10/15/2009 Pneumococcal Conjugate Vacc, 13 Valent (Prevnar) 05/14/2015 Pneumococcal Polysaccharide PPV23 (Pneumovax) 09/11/2009,07/12/2003 SEASONAL INFLUENZA, PF, 6 M & Above, IM , (FLULAVAL or FLUZONE) 06/08/2018,06/16/2017 Season Influenza, Quad, PF, Adjuvanted, 65+ Yrs, IM (FLUAD) 05/04/2020 Seasonal Influenza Virus Vac cine, Unspecified Formulation 07/04/1998 Seasonal Influenza, Quadriva lent Hd (Fluzone Hd) [...] Telephone Encounter - Faby Singleton PA-C - 07/05/2023 1:20 PM EST He should be taking coumadin and aspirin 81 mg daily * Telephone Encounter - Faby Singleton PA-C [...] concern over cost [facility]. * Telephone Encounter - Bernie [...] 8:40 AM EST Laboratory Lab Mobile Phlebotomy [facility] [address] [place] [address] [facility], [facility] Mobile Home Draw [address] [place] [address] 07/13/2023 6:00 AM EST Anticoagulation Pharmacy Call Center [address] [place] [address] [facility] 58 60 [place] [address] 07/19/2023 4:00 PM EST [facility], [facility] [address] [place] [address] Danitza Salinas, RN [address] [place] [address] 07/21/2023 10:00 AM EST Scheduled Telephone [facility], [facility] [address] [place] [address] [address] [facility] Nurse Triage [address] [place] [address] 07/22/2023 3:00 PM EST Office Visit Sleep Disorders Ctr Aj [facility] [place] [address] [place] [address] [phone] Marnie Hartmanaret, [address] [place] [address] 03/28/2024 2:00 PM EDT Office Visit Rheumatology [facility] [address] [place] [address] Yudi Horowitz CRNP [address] [facility] [place] [address] Scheduled Procedures Name Priority Associated Diagnoses Date/Ti [...] Additional history exists CKD PHOS USE SMARTSET 65684 07/02/202306/23, 07/01/2021, 03/22/2020 Diabetic Eye Exam 07/20/2023 [...] Scan 03/11/2024 03/11/2023 CKD HGB USE SMARTSET 32932 03/29/202403/29, 03/29/2023, 12/01/2022, Additional history exists Albumin/Creatinine Ratio 05/31/2024 023, 10/20/2021, 08/11/2017, Additional history exists DTaP,Tdap,and Td Vaccines (3 - Td or Tdap) 01/11/2028 01/10/2018, 10/03/2012 Pneumococcal Vaccine: 65+ Years Completed 05/14/2015, 09/11/2009, 07/12/2003 Zoster Vaccines Completed 03/22/2020, 08/30/2019 COLONOSCOPY-EVERY 5 YRS AGES 18-100 Discontinued 11/19/2020, 11/19/2020, 05/16/2015, Additional history exists Alpha-1 Antitrypsin Completed 03/11/2022 VITAMIN D LEVEL ONCE IN A LIFETIME-USE SMARTSET# [id number] Completed 03/29/2023, 05/12/2014 Influenza Vaccine (FLU shot) [...] the patient have Health Care Power of Steeler? No Full Code 08/14/2010 2:57 PM 08/15/2010 2:24 PM Thi s order reflects the patients wishes and were consensually agreed upon. Care Teams Sports Teacher Relationship Specialty Start Date End Date Zachariah Duarte DO PCP - General Family Medicine 12/20/20 06/30/23 documented as of this encounter
--- OUTSIDE RECORDS SUMMARY | 2023-08-28 08:34 | External Medical Summary | Summary of Care ---
Author Name Unknown Organization [facility] Address [address] [facility] [place] [address] Phone [phone] Care Team Providers Care Host Coordinator Name Role Phone Unavailable Primary Care Provider Unavailabl e Reason for Visit * Reason Comments Dosage Adjustment Via Phone (anticoag Cl inic) Encounter Details Date Type Department Care Team (Latest Contact Info) Description 07/13/2023 6:00 AM EST Anticoagulation Pharmacy Call Center [address] [place] [address] [facility] 58 60 [facility] [place] [address] Anticoagulation management encounter* Allergies Active Allergy Reactions Criticality Noted Date Comments Propoxyphene N-Acetaminophen 06/22/2012 N/V Fentanyl Nausea/vomiting 10/15/2009 Oxycodone High 01/21/2023 Other reaction(s): vomiting Oxycodone-Acetaminophen Nausea/vomiting High 010 documented as of this encounter (statuses as of 07/13/2023) Medications Medication Sig Dispensed Refills Start Date [...] 1 Each 0 04/09/2022 Active oxygen IN GASIndications: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 respiratory failure with hypoxia (HCC),Centrilobular emphysema [...] 90 Tablet 2 11/13/2022 4 Active Umeclidinium Fith[place] 62.5 MCG/ACT Inhalation Aerosol Powder Breath Activated (INCRUSE ellipta)Indications :COPD, group B, by GOLD 2017 classification ([facility]) INHALE ONE PUFF BY MOUTH [...] 12 Hour (Ranexa)Indications :Coronary artery disease of [place] artery of [place] heart with stable angina pectoris ([facility]) TAKE ONE TABLET BY MOUTH [...] hemoglobin A1c goal of less than 8.0% ([facility]) Inject 15 Units under the [...] as of this encounter (statuses as of 07/13/2023) Active Problems Problem Noted Date Diagnosed Date [...] artery disease of n ative artery of [place] heart with stable angina pectoris 01/30/2017 Overview: More specific. 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 Last Assessment & Plan: Cognition at baseline -not tolerating Aricept HTN (hypertension) 09/28/2012 Atherosclerosis of [place] artery of extremity Obstructive sleep apnea 01/13/2010 Overview: ICD-10 update of inactive term Last Assessment & Plan: Compliant with CPAP Old myocardial infarction 10/25/2009 Lumbar disc disorder with myelopathy 10/15/2009 Overview: Fentanyl patch caused severe nausea and vomiting Failed ultram Oxycodone caused nausea Preglaucoma 08/29/1998 History of TIA (transient ischemic attack) documented as of this encounter (statuses as of 07/13/2023) Resolved Problems Problem Noted Date Diagnosed Date [...] as of this encounter (statuses as of 07/13/2023) Immunizations Name Administration Dates Next Due COVID-19 [...] of this encounter Progress Notes * Ambrocio Benitez, composite technician - 07/13/2023 9:20 AM EST Contacts Type Contact Phone/Fax 07/13/2023 09:17 AM EST Phone (Outgoing) Kaleb Oakley (Self) [phone] (H) Left Message Subjective Left vm to call back and let us know if Home Machine came yet or if he has appt set for pain injections. PT/INR results, Coumadin dose instructions, and next PT/INR date communicated as noted by Pharmacist: Yes Ambrocio Benitez composite technician 07/13/2023, 9:20 AM * Layne Fuller RPh [...] dose: not changed Additional Dosing Information: Description [facility] Tech to contact patient with dose instructions as noted. Layne Fuller RPh 07/13/2023, 8:03 AM documented in this encounter Plan of Treatment Upcoming Encounters Date Type Department Care Team (Late st Contact Info) Description 07/19/2023 4:00 PM EST [facility] Visit [facility] [place], [address] [place] [address] Danitza Salinas RN 132 [facility] [place] [address] 07/21/2023 10:00 AM EST Scheduled Telephone [facility], [facility] 132 [facility] [place] [address] [facility] Nurse Triage 132 [facility] [place] [address] 07/22/2023 3:00 PM EST Office Visit Sleep Disorders Ctr Aj [facility] 132 [facility] [place] [phone] Marnie Hartman DO [facility] [place] [address] 07/26/2023 9:10 AM EST Laboratory Lab Mobile Phlebotomy [facility] [address] [place] [address] [facility], [facility] Mobile Home Draw [address] [place] [address] 07/27/2023 6:00 AM EST Anticoagulation Pharmacy Call Center [address] [place] [address] [facility] [address] [place] [address] 03/28/2024 2:00 PM EDT Office Visit Rheumatology [place] [address] [employer] [address] Yudi Horowitz CRNP [facility] [place] [address] Scheduled Procedures Name Priority Associated Diagnoses Date/Ti [...] Additional history exists CKD PHOS USE SMARTSET 99268 07/02/202306/23, 07/01/2021, 03/22/2020 Diabetic Eye Exam 07/20/2023 [...] Scan 03/11/2024 03/11/2023 CKD HGB USE SMARTSET 76230 03/29/202403/29, 03/29/2023, 12/01/2022, Additional history exists Albumin/Creatinine Ratio 05/31/2024 023, 10/20/2021, 08/11/2017, Additional history exists DTaP,Tdap,and Td Vaccines (3 - Td or Tdap) 01/11/2028 01/10/2018, 10/03/2012 Pneumococcal Vaccine: 65+ Years Completed 05/14/2015, 09/11/2009, 07/12/2003 Zoster Vaccines Completed 03/22/2020, 08/30/2019 COLONOSCOPY-EVERY 5 YRS AGES 18-100 Discontinued 11/19/2020, 11/19/2020, 05/16/2015, Additional history exists Alpha-1 Antitrypsin Completed 03/11/2022 VITAMIN D LEVEL ONCE IN A LIFETIME-USE SMARTSET# [id number] Completed 03/29/2023, 05/12/2014 Influenza Vaccine (FLU shot) [...] the patient have Health Care Power of Industrial Technologist? No Full Code 08/14/2010 2:57 PM 08/15/2010 2:24 PM Thi s order reflects the patients wishes and were consensually agreed upon.
--- OUTSIDE RECORDS SUMMARY | 2023-08-28 08:34 | External Medical Summary ---
Author Name Unknown Address Unknown Organization K0G:[facility] [address] [place] [address] Laboratory Report Ordering Provider Test Date Status LUIS ALBERTO CASH 07/12/2023 09:21:00 Final Warfarin Therapy
INR: 2 .0-3.0 conventional anticoagulation
INR: 2.5- 3.5 high intensity anticoagulation Observation Date Value Abnormality Reference (Units ) Status PT 07/12/2023 09:21:00 32.7 Above high normal 11 .6-15.2 (seconds) Final INR 07/12/2023 09:21:00 3.2 Above high normal 0. 8-1.2 Final Performing Location [facility] [address] [place] [address]
--- OUTSIDE RECORDS SUMMARY | 2023-08-28 08:34 | External Medical Summary | Summary of Care ---
Author Name Unknown Organization [facility] Address [address] [facility] [place] [address] Phone [phone] Care Team Providers Care Supervisor [employer] Name Role Phone Kj Duarteinic Primary Care Provider + [phone] Reason for Visit * Reason Comments Back Pain * Evaluate & Treat - Unlimited Visits (Within 10 days (routine)) - Authorized Specialty Diagnoses / Procedures Referred By Tito zaidi Referred To Contact Pain Management / Pain Medicine Diagnoses Spinal stenosis of lumbar region, unspecified whether neurogenic claudication present Valerie Tilley PA-C [address] [place] [address] Referral ID Status Reason Start Date Expiration Date Visits Requested Visits Authorized [id number] Authorized Specialty Services Required [phone] Encounter Details Date Type Department Care Team (Latest Contact Info) Description 06/29/2023 12:30 PM EST Office Visit [facility], [facility] [address] [place] [address] Wendi Taveras PA-C [address] [place] [address] Lumbar radicular pain*; Hx of decompressive lumbar laminectomy Allergies Active Allergy Reactions Criticality Noted Date Comments Propoxyphene N-Acetaminophen 06/22/2012 N/V Fentanyl Nausea/vomiting 10/15/2009 Oxycodone High 01/21/2023 Other reaction(s): vomiting Oxycodone-Acetaminophen Nausea/vomiting High 010 documented as of this encounter (statuses as of 06/29/2023) Medications Medication Sig Dispensed Refills Start Date End Date Status SYRINGE (DISPOSABLE) 5 ML MISCIndications:DM type 2 causing neurological disease (HCC) use as directed for lantus 1 box 11 09/11/2009 Active [employer] ULTRA 2 W/DEVICE KITIndications:DM type 2, goal A1C 7-8 use as directed 1 Kit 0 03/09/2012 Active SpotOnWayTOUCH DELICA LANCETS MISCIndications:DM type 2, goal A1C 7-8 use up to 4 times daily 100 Each 11 03/09/2012 Active SpotOnWayTOUCH ULTRA BLUE STRPIndications:DM type 2, goal A1C [...] 1 Each 0 04/09/2022 Active oxygen IN GASIndications: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 respiratory failure with hypoxia (HCC),Centrilobular emphysema [...] 90 Tablet 2 11/13/2022 4 Active Umeclidinium Newport 62.5 MCG/ACT Inhalation Aerosol Powder Breath Activated (INCRUSE ellipta)Indications :COPD, group B, by GOLD 2017 classification ([facility]) INHALE ONE PUFF BY MOUTH EVERY [...] 12 Hour (Ranexa)Indications :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 Last Assessment & Plan: Cognition at baseline -not tolerating Aricept HTN (hypertension) 09/28/2012 Atherosclerosis of rampart artery of extremity Obstructive sleep apnea 01/13/2010 Overview: ICD-10 update of inactive term Last Assessment & Plan: Compliant with CPAP Old myocardial infarction 10/25/2009 Lumbar disc disorder with myelopathy 10/15/2009 Overview: Fentanyl patch caused severe nausea and vomiting Failed ultram Oxycodone caused nausea Preglaucoma 08/29/1998 History of TIA (transient ischemic attack) documented as of this encounter (statuses as of 06/29/2023) Resolved Problems Problem Noted Date Diagnosed Date [...] as of this encounter (statuses as of 06/29/2023) Immunizations Name Administration Dates Next Due COVID-19 [...] as of this encounter Progress Notes * Wendi Taveras PA-C - 06/29/2023 12:27 PM EST GENERAL HISTORY & PHYSICAL EXAMINATION - Anesthesia and Pain Service Name: Kaleb Oakley Location: [facility] REFERRING PHYSICIAN: Valerie Tilley PA-C Thank you for referring Kaleb Oakley. CHIEF COMPLAINT: Low back pain HPI: Kaleb Oakley is a 77 year old male who complains of bilateral low back pain. This pain started more than 15 years ago without preceding injury. Significant hx posterior decompression at the L4/5 and L5/S1 in 2012 which provided a few years of pain relief. Notes hx of one lumbar injection prior to surgery. Progressive pain in the past few years, multiple mechanical falls including injury Spring 2022, evaluated at [facility] ED mild compression fracture T12 without retropulsion and R transverse process fracture L1. [facility] followed by home PT for about one month. HE does still continue daily home stretching program without pain reduction. Previously followed with pain management in [place], medication only - no lasting relief with Duragesic, dilaudid and oxycodone. Followed with neurosurgery, notes from 05/21/23, 06/17/23 reviewed. Requesting consideration of TF ESIs. Personally reviewed L spine MRI 06/08/23 - scoliotic curvature, moderate to severe B sánchez inal narrowing L3/4 and L4/5, moderate R and moderate to severe L foraminal narrowing L5/S1, s/p posterior decompression L4/5 and L5/S1, no significant central stenosis. Personally reviewed L spine xray 05/18/23 - moderate osteophyte formation lower lumbar region with moderate levoscoliosis. Symptoms occur daily. Pain is constant, rated 1/10 sitting, increase to 8/10 at worst. Aggravating factors include: walking, standing. Alleviating factors include: lidocaine patch. Admits associated weaknessB LE, using walker which he's needed for approximately six months. Associated B LE "burning" ratherdiffusely. Denies bowel or bladder incontinence. Known PAD, most recent VERONIKA February 2023 revealed mild R LE occlusion, moderate L LE occlusion. Significant past medical hx includes: COPD, DM type II, HTN, VENICE, Alzheimers disease, morbid obesity. Current medications used for pain: tylenol, medical marijuana, Salonpas patch. Past medications used for pain: gabapentin, Duragesic, dilaudid and oxycodone. Anticoagulation therapy: coumadin Diabetic: yes, most recent HbA1c 7.Mar Presents with , Sammi, who answer large portion of HPI due to patients dementia. 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 Royal AORTOGRAM ABDOMINAL-TECH ONLY 08/14/2010 IMAGING S&I ABDOMINAL AO performed by MICHAEL ROYAL at OR [facility] BYPASS GRAFT ANGIOGRAPHY W/LEFT HEART CATH Left 01/29/2017 BYPASS GRAFT ANGIOGRAPHY W/LEFT HEART CATH performed by Tiffanie Contreras MD at CARDIAC LABS [facility] BYPASS GRAFT ANGIOGRAPHY W/LEFT HEART CATH Left 03/02/2019 BYPASS GRAFT ANGIOGRAPHY W/LEFT HEART CATH performed by Marco Antonio Cerda MD at CARDIAC LABS [facility] COLONOSCOPY W/ BIOPSY (RECTUM) 03/07/2010 done diverticulosis, polyps x2 path shows adenomatous repeat in 5 years COLONOSCOPY, DIAGNOSTIC (RECTUM) 11/19/2020 tubular adenoma polyps, repeat 2 yrs health permiting/ COLONOSCOPY FLEXIBLE PROXIMAL DIAGNOSTIC performed by Silvia Howard MD at ENDOSCOPY [facility] COLONOSCOPY, GI REFERRAL OP 10/04/2003 normal CORONARY ARTERY BYPASS, SINGLE 11/21/1997 CABG(Peripheral Bypass) ?Triple CORONARY ARTERY DILATION, BALLOON 08/23/1988 Angioplasty (PALMAZ-LIDIA) EGD, FLEXIBLE, DIAGNOSTIC N/A 08/10/2022 gastritis/single bleeding angioectasia in stomach, treated with APC/biopsies normal/ESOPHAGOGASTRODUODENOSCOPY (EGD), FLEXIBLE, TRANSORAL, DIAGNOSTIC performed by Nelly Perez DO at OR [facility] INJECTION LUMBAR/SACRAL 08/23/2011 IR ARTERIOGRAM EXTREMITY BILATERAL 08/14/2010 ANGIOGRAPHY EXTREMITY BILATERAL performed by MICHAEL ROYAL at OR [facility] LAMINECTOMY/LAMINOTOMY, LUMBAR, GUIDE 09/08/2012 L4-5, L5-S1 laminectomy MISCELLANEOUS ORDER ([facility] ONLY) Angioplasty in leg, right REMOVE CATARACT, INSERT LENS PROSTH 10/22/2011 rt eye REMOVE CATARACT, INSERT LENS PROSTH 10/22/2011 left eye FAMILY HISTORY: Family History Problem Relation Age of Onset Diabetes Mother Stroke Mother in her 70s Diabetes Father Heart attack Father Fatal [place] age 80 Heart attack Sister Fatal [place] age 55 Heart disease Sister CABG Breast Cancer Sister Diabetes Sister Heart failure Sister in her 60s Diabetes Sister Diabetes Brother COPD Brother Heart disease Brother age 77 Cancer Brother Pancreatic, in his 50s Heart Disorder Sister CABG and [place] age 55 Other ( as a baby) Sister Other (nephrolithiasis) Son required ESWL Other (no FH of kidney disease) Son Family History - Pertinent Findings: (-) clotting disorder SOCIAL HISTORY: Social History Tobacco Use Smoking status: Some Days Years: 63 Types: Cigarettes Smokeless tobacco: Never Tobacco comments: 2 - 4 cigarettes per month Vaping Use Vaping Use: Never used Substance Use Topics Alcohol use: Yes Comment: 6 drink/yr if that Drug use: Yes Frequency: 7.0 times per week Types: Marijuana Comment: capsules. has medical marijuana card CURRENT MEDICATIONS: Note that discontinued and completed medications (per the MAR) continue to display for 24 hours. Ordered medications to be given in the future also display. Current Outpatient Medications Medication Sig Dispense Refill SYRINGE (DISPOSABLE) 5 ML MISC use as directed for lantus 1 box 11 SpotOnWayTOUCH ULTRA 2 W/DEVICE KIT use as directed 1 Kit 0 SpotOnWayTOUCH DELICA LANCETS MISC use up to 4 times daily 100 Each 11 SpotOnWayTOUCH ULTRA BLUE STRP TEST BLOOD SUGAR 7 TIMES A DAY 200 Strip 5 Magnesium Oxide 400 MG Tablet TAKE 1 TABLET BY MOUTH ONCE A DAY 30 Tab 5 Insulin Syringe-Needle U-100 (BD INSULIN SYRINGE ULTRAFINE) 31G X 5/16" 0.5 ML MISC Use to inject insulin 5 times daily 200 Each 11 Misc Natural Products (T-RELIEF CBD+13) SUBL Place 1 Each under the tongue at bedtime. insulin isophane human (NOVOLIN N RELION) 100 UNIT/ML injection INJECT 36 UNITS SUBCUTANEOUSLY AT NOON AND INJECT 25 UNITS AT MIDNIGHT DAILY 30 mL 0 CPAP every night at bedtime . oxygen IN GAS Use 2 LPM with exertion (Patient taking differently: 3 L/min(Oxygen) at bedtime. Use 3 LPM with exertion and at night) 1 Each 0 Nebulizer Device Use with nebulized medications 1 Each 0 oxygen IN GAS 2 LPM by inogen or portable oxygen concentrator with exertion. Use 3 LPM by standing concentrator with sleep 1 Each 0 Docusate Sodium 100 MG Oral Tablet Take 1 Tablet by mouth in the morning and 1 Tablet before bedtime. Tylenol 325 MG Oral Capsule (Acetaminophen) Take 650 mg by mouth in the morning and 650 mg before bedtime. Metoprolol Tartrate 100 MG Oral Tablet (Lopressor) TAKE 1 TABLET BY MOUTH IN THE MORNING AND 1 TABLET BEFORE BEDTIME 180 Tablet 3 traZODone HCl 100 MG Oral Tablet (Desyrel) TAKE ONE TABLET BY MOUTH AT BEDTIME NEEDED FOR SLEEP 90 Tablet 2 Umeclidinium Newport 62.5 MCG/ACT Inhalation Aerosol Powder Breath Activated (INCRUSE ellipta) INHALE ONE PUFF BY MOUTH EVERY DAY IN THE MORNING 90 Each 3 Warfarin Sodium 5 MG Oral Tablet (Coumadin) TAKE ONE TABLET BY MOUTH AT BEDTIME 90 Tablet 3 Furosemide 20 MG Oral Tablet (Lasix) TAKE ONE TABLET BY MOUTH EVERY MORNING PLUS ADDITIONAL ONE TABLET TWO DAYS PER WEEK 110 Tablet 3 Pantoprazole Sodium 40 MG Oral Tablet Delayed Release (Protonix) TAKE ONE TABLET BY MOUTH EVERY DAY90 Tablet 2 Atorvastatin Calcium 80 MG Oral Tablet (Lipitor) TAKE ONE TABLET BY MOUTH EVERY DAY 90 Tablet 0 Ranolazine ER 500 MG Oral Tablet Extended Release 12 Hour (Ranexa) TAKE ONE TABLET BY MOUTH TWICE ADAY -- IN THE MORNING AND BEFORE BEDTIME 180 Tablet 3 Isosorbide Mononitrate ER 60 MG Oral Tablet Extended Release 24 Hour (Imdur) TAKE ONE TABLET BY MOUTH TWICE A DAY 200 Tablet 3 Vitamin D 25 MCG (1000 UT) Oral Tablet Take 1 Tablet by mouth every evening. Vitamin E 1000 UNIT Oral Capsule Take 1 Capsule by mouth in the morning. NovoLIN R ReliOn 100 UNIT/ML Injection Solution (insulin REGULAR human) Inject 15 Units under the skin in the morning and 15 Units at noon and 15 Units before bedtime. With meals. DISPENSE 5 vials. Memantine HCl 5 MG Oral Tablet (Namenda) TAKE ONE TABLET BY MOUTH IN THE MORNING AND ONE TABLET BEFORE BEDTIME 60 Tablet 5 No current facility-administered medications for this visit. ALLERGIES: Oxycodone, Percocet [oxycodone-acetaminophen], Darvocet [propoxyphene n- acetaminophen], and Fentanyl ROS: Constitutional: Negative for fatigue, fever, appetite change, unexplained weight loss. ENT: Negative for hearing loss, sore throat. Respiratory: Negative for cough, shortness of breath, dyspnea. Musculoskeletal: Negative for neck, mid-back pain. + low back pain - see HPI Neurological: Negative for headaches, seizures. + paresthesias B LE - see HPI Genitourinary: Negative for dysuria, urinary frequency, hematuria. Hematologic/ Lymphatic: Negative for lymphadenopathy. + easy bleeding, bruising Gastrointestinal: Negative for abdominal pain, nausea, vomiting, constipation, diarrhea. Cardiovascular: Negative for chest pain, palpitations, ankle swelling, orthopnea. PHYSICAL EXAMINATION: Most Recent Vital Signs: There were no vitals filed for this visit. General Appearance: Patient appears to be about stated age, pleasant and cooperative with normal affect. HEENT: head normocephalic, pupils equal round and reactive to light and accommodation, EOMI, hearing intact and equal bilaterally, and nose clear, throat normal Chest: no gross abnormality. Nonlabored breathing. Lumbar Spine: Normal lumbar lordatic curvature is present. Skin is intact with well healed midline surgical scar. No masses palpable. Midline and B paravertebral musculature nontender. B sacroiliac joint nontender. No evidence of myofascial trigger points. Limited active ROM with flexion and extension of the lumbar spine. Lower Extremity Strength: Hip Flexion 5/5 bilaterally. Hip Abductor 5/5 bilaterally. Hip Adductor 5/5 bilaterally. Extensor Hallicus Longus 5/5 bilaterally. Deep Tendon Reflex: Patellar: 2/4 bilaterally. Achilles: 1/4 bilaterally. Low Back Provocative Testing: PRESTON test: negative bilaterally. Straight Leg Raise Test: positive bilaterally. Lumbar Facet Loading: positive bilaterally. Sensation: Dermatomal sensation not formally tested. Grossly normal and symmetric unless otherwise specified. Gait: Intact, no sign of ataxia. Ambulates without assistance. IMAGING: MRI LUMBAR SPINE WITHOUT CONTRAST 06/08/23 The retroperitoneal tissues are unremarkable in appearance. There is leftward curvature of the lumbar spine with its apex at the L3-4 level which is similar to prior imaging. The conus terminates at L1. Signal in the distal cord is normal. There are postsurgical changes of prior posterior decompression at the L4-5 and L5-S1 levels. In the sagittal plane trace retrolisthesis of L3 on L4 and L4 on L5 is noted. There is disc space narrowing throughout the mid lumbar spine most notably at L3-4 and L4-5 as well as L5-S1 with associated discogenic endplate changes. On the STIR imaging no focal marrow signal abnormalities are evident elsewhere in the lumbar spine. At L1-2 there is disc bulge without thecal sac or significant subarticular compromise. Mild bilateral foraminal narrowing is evident. At L2-3 again there is disc bulge and there is facet hypertrophy without thecal sac or subarticularcompromise. Mild bilateral foraminal narrowing is present. At L3-4 disc bulge and facet degeneration cause right subarticular stenosis greater than left. There is mild thecal sac narrowing and there is moderate right foraminal narrowing. These findings are largely similar when compared to prior imaging. At L4-5 postoperative changes are noted. There is bilateral facet degeneration without thecal sac stenosis. However, there is severe foraminal narrowing bilaterally at this level which is similar to prior imaging. At L5-S1 marked bilateral facet degeneration is present and there has been posterior decompression.No thecal sac stenosis is present. There is moderate right and moderate to severe left-sided foraminal narrowing, also similar to prior study. IMPRESSION: Postsurgical changes in the lower lumbar spine with advanced degenerative spondylosis appears largely similar to the prior examination. There is no high- grade thecal sac stenosis, but there is multilevel foraminal stenosis in the lower lumbar spine. XR Lumbosacral Spine 05/18/2023 5:45 PM Bones/joints: Moderate levoscoliosis of lumbar spine. Moderate multilevel lumbar spondylosis with osteophyte formation. Degenerative type spinal stenosis at lower lumbar spine. No acute fractures. Soft tissues: Extensive atherosclerotic changes of abdominal aorta. IMPRESSION: Stable appearing moderate scoliosis and multilevel degenerative changes. ASSESSMENT: Lumbar radicular pain S/P posterior lumbar decompression L4/5 and L5/S1 PAD PLAN: Chronic low back pain with B LE paresthesia and weakness. Recent surgical consultation who are requesting consideration of injections. Personally reviewed L spine MRI 06/08/23 - scoliotic curvature, moderate to severe B foraminal narrowing L3/4 and L4/5, moderate R and moderate to severe L foraminal narrowing L5/S1, s/p posterior decompression L4/5 and L5/S1, no significant central stenosis. Personally reviewed L spine xray 05/18/23 - moderate osteophyte formation lower lumbar region with moderate levoscoliosis. Discussed possible LESI using fluoroscopy. Risks including, but not limited to, bleeding, infection, worsening pain, failure to alleviate pain, nerve injury and possible steroid sideeffects were reviewed. Reviewed need to stop coumadin prior to injection therapy to decrease risk of bleeding or epidural hematoma. Reviewed increased risk of stroke or cardiac event while coumadin is stopped. Patient stated understanding. Will contact cardiology regarding possible five day hold. Patient also unsure he would like to pursue injections again - one injection attempted prior to surgery in 2012. Wendi Taveras PA-C 06/29/2023 Received response from cardiology - he should be using both plavix and coumadin. Cardiology startedtelephone encounter. Wendi Taveras [phone] 06/29/23 documented in this encounter Nursing Notes * Shanta Torres LPN - 06/29/2023 12:31 PM EST Patient presents with low back pain since 2003, no known injury Hx of injection in 2011, surgery in 2013 No relief with PT in the last 2yrs MRI in chart Worse with walking, 04/01 at the worst documented in this encounter Plan of Treatment Upcoming Encounters Date Type Department Care Team (Late st Contact Info) Description 07/12/2023 8:40 AM EST Laboratory Lab Mobile Phlebotomy [facility] [address] [place] [address] [facility] Home Draw [address] [place] [address] 07/13/2023 6:00 AM EST Anticoagulation Pharmacy Call Center [phone] [facility] [place] [address] [facility] [address] [facility] [address] 07/19/2023 4:00 PM EST Home Visit [facility] [place] [address] [address] Danitza Salinas, RN [address] [address] 07/21/2023 10:00 AM EST Scheduled Telephone [facility], [facility] [address] [address] [facility] T[facility] [address] [address] 07/22/2023 3:00 PM EST Office Visit [facility] [address] [phone] Marnie Hartman DO [address] [address] 03/28/2024 2:00 PM EDT Office Visit Rheumatology [facility] [address] [facility] [place] [address] Yudi Horowitz CRNP [address] [facility] [place] [address] Scheduled Procedures Name Priority Associated Diagnoses Date/Ti me COLONOSCOPY FLEXIBLE PROXIMAL DIAGNOSTIC Recall History of colon polyps Scheduled Referrals Name Type Priority Associated Diagnoses Orde r Schedule PAIN MEDICINE REFERRAL OP Referral Within 10 days (routine) Spinal stenosis of lumbar region, unspecified whether neurogenic claudication present Ordered: 06/17/2023 Health Maintenance Due Date Last Done Comments Hepatitis B (1 of 3 - Risk 3-dose series) 2004 COLONOSCOPY-EVERY 2 YRS AGES 18-100 11/19/2022 11/19/2020, 11/19/2020, 05/16/2015, Additional history exists Diabetic Foot Exam 02/06/2023 02/06/2022, 0 08/30/2019, 08/18/2018, Additional history exists COVID-19 Vaccine ( season) 2023 12/23/2021, 07/24/2021, 07/24/2021, Additional history exists CKD PHOS USE SMARTSET 77384 07/02/202306/23, 07/01/2021, 03/22/2020 Diabetic Eye Exam 07/20/2023 [...] Scan 03/11/2024 03/11/2023 CKD HGB USE SMARTSET 01615 03/29/202403/29, 03/29/2023, 12/01/2022, Additional history exists Albumin/Creatinine Ratio 05/31/2024 023, 10/20/2021, 08/11/2017, Additional history exists DTaP,Tdap,and Td Vaccines (3 - Td or Tdap) 01/11/2028 01/10/2018, 10/03/2012 Pneumococcal Vaccine: 65+ Years Completed 05/14/2015, 09/11/2009, 07/12/2003 Zoster Vaccines Completed 03/22/2020, 08/30/2019 COLONOSCOPY-EVERY 5 YRS AGES 18-100 Discontinued 11/19/2020, 11/19/2020, 05/16/2015, Additional history exists Alpha-1 Antitrypsin Completed 03/11/2022 VITAMIN D LEVEL ONCE IN A LIFETIME-USE SMARTSET# [id number] Completed 03/29/2023, 05/12/2014 Influenza Vaccine (FLU shot) Completed 05/18/2023, 05/27/2022, 06/23/2021, Additional history exists GARDASIL-HPV IMMUNIZATION SERIES Aged Out No longer eligible based on patient's age to complete this topic MENINGOCOCCAL (MENACTRA/MENVEO) Aged Out No longer eligible based on patient's age to complete this topic documented as of this encounter Medical Devices Not on filedocumented as of this encounter Visit Diagnoses Diagnosis Lumbar radicular pain- Primary Thoracic or lumbosacral neuritis or radiculitis, unspecified Hx of decompressive lumbar laminectomy Other postprocedural status documented in this encounter Advance Directives Latest [...] the patient have Health Care Power of Emergency Medical Service Coordinator? No Full Code 08/14/2010 2:57 PM 08/15/2010 2:24 PM Thi s order reflects the patients wishes and were consensually agreed upon. Care Teams Supervisor [employer] Relationship Specialty Start Date End Date Zachariah Duarte DO PCP - General Family Medicine 12/20/20 documented as of this encounter
--- OUTSIDE RECORDS SUMMARY | 2023-08-28 08:34 | External Medical Summary | Summary of Care ---
Author Name Unknown Organization [facility] Address [address] [facility] [address] [place] [address] Phone [phone] Care Team Providers Care Embroidery Finisher Name Role Phone Zachariah Duarte DO Primary Care Provider Reason for Visit * Reason Onset Date Comments Information 06/29/2023 Encounter Details Date Type Department Care Team (Late st Contact Info) Description 06/29/2023 Telephone Cardiology, [facility] [address] [place] [address] Faby Singleton, [place] [address] [place] [id number] Information Allergies Active Allergy Reactions Criticality Noted Date Comments Propoxyphene N-Acetaminophen 06/22/2012 N/V Fentanyl Nausea/vomiting 10/15/2009 Oxycodone High 01/21/2023 Other reaction(s): vomiting Oxycodone-Acetaminophen Nausea/vomiting High 010 documented as of this encounter (statuses as of 07/05/2023) Medications Medication Sig Dispensed Refills Start Date End Date Status SYRINGE (DISPOSABLE) 5 ML MISCIndications:DM type 2 causing neurological disease (HCC) use as directed for lantus 1 box 11 09/11/2009 Active ONETOUCH ULTRA 2 W/DEVICE KITIndications:DM type 2, goal A1C 7-8 use as directed 1 Kit 0 03/09/2012 Active Invoke SolutionsTOUCH DELICA LANCETS MISCIndications:DM type 2, goal A1C [...] 1 Each 0 04/09/2022 Active oxygen IN GASIndications: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 bobbi respiratory failure with hypoxia (HCC),Centrilobular emphysema [...] 90 Tablet 2 11/13/2022 4 Active Umeclidinium [place] 62.5 MCG/ACT Inhalation Aerosol Powder Breath Activated (INCRUSE ellipta)Indications :COPD, group B, by GOLD 2017 classification ([facility]) INHALE ONE PUFF BY MOUTH EVERY DAY [...] 12 Hour (Ranexa)Indications :Coronary artery disease of [place] artery of [place] heart with stable angina pectoris (HCC) TAKE [...] goal of less than 8.0% ([facility]) Inject 15 Units under the skin in the morning and 15 Units at noon and 15 Units before bedtime. With meals. DISPENSE 5 vials. 0 05/20/2023 Active Memantine HCl 5 MG Oral Tablet (Namenda)Indication s:Dementia in Alzheimer's disease ([facility]) TAKE ONE TABLET BY MOUTH IN THE MORNING AND ONE TABLET BEFORE BEDTIME 60 Tablet 5 06/19/2023 4 Active documented as of this encounter (statuses as of 07/05/2023) Active Problems Problem Noted Date Diagnosed Date [...] artery disease of n ative artery of [place] heart with stable angina pectoris 01/30/2017 Overview: More specific. 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 Last Assessment & Plan: Cognition at baseline -not tolerating Aricept HTN (hypertension) 09/28/2012 Atherosclerosis of [place] artery of extremity Obstructive sleep apnea 01/13/2010 Overview: ICD-10 update of inactive term Last Assessment & Plan: Compliant with CPAP Old myocardial infarction 10/25/2009 Lumbar disc disorder with myelopathy 10/15/2009 Overview: Fentanyl patch caused severe nausea and vomiting Failed ultram Oxycodone caused nausea Preglaucoma 08/29/1998 History of TIA (transient ischemic attack) documented as of this encounter (statuses as of 07/05/2023) Resolved Problems Problem Noted Date Diagnosed Date [...] as of this encounter (statuses as of 07/05/2023) Immunizations Name Administration Dates Next Due COVID-19 [...] to start * Telephone Encounter - Magaly Tirnidad LPN - 06/30/2023 3:26 PM EST Spoke with pt. Per the patient Dr. Duarte stopped plavix 3-4 months ago d/t pt concern over cost - [facility]. * Telephone Encounter - [...] Laboratory Lab Mobile [facility] [address] [place] [address] [facility] Mobile Home Draw [address] [place] [address] 07/13/2023 6:00 AM EST Anticoagulation Pharmacy Call Center [address] [place] [address] [facility] [address] [facility] [place] [address] 07/19/2023 4:00 PM EST [facility], [facility] [address] [place] [address] Danitza Salinas RN [address] [place] [address] 07/21/2023 10:00 AM EST Scheduled Telephone [facility], [facility] [address] [place] [address] [facility] Nurse Triage [address] [place] [address] 07/22/2023 3:00 PM EST Office Visit Sleep Disorders Ctr [facility] [address] [place] [phone] Marnie Hartman DO [address] [place] [address] 03/28/2024 2:00 PM EDT Office Visit Rheumatology [facility] [address] [place] [address] Yudi Horowitz CRNP [address] [place] [address] Scheduled Procedures Name Priority Associated Diagnoses Date/Ti [...] Additional history exists CKD PHOS USE SMARTSET 14063 07/02/202306/23, 07/01/2021, 03/22/2020 Diabetic Eye Exam 07/20/2023 [...] Scan 03/11/2024 03/11/2023 CKD HGB USE SMARTSET 25948 03/29/202403/29, 03/29/2023, 12/01/2022, Additional history exists Albumin/Creatinine Ratio 05/31/2024 023, 10/20/2021, 08/11/2017, Additional history exists DTaP,Tdap,and Td Vaccines (3 - Td or Tdap) 01/11/2028 01/10/2018, 10/03/2012 Pneumococcal Vaccine: 65+ Years Completed 05/14/2015, 09/11/2009, 07/12/2003 Zoster Vaccines Completed 03/22/2020, 08/30/2019 COLONOSCOPY-EVERY 5 YRS AGES 18-100 Discontinued 11/19/2020, 11/19/2020, 05/16/2015, Additional history exists Alpha-1 Antitrypsin Completed 03/11/2022 VITAMIN D LEVEL ONCE IN A LIFETIME-USE SMARTSET# [id number] Completed 03/29/2023, 05/12/2014 Influenza Vaccine (FLU shot) [...] the patient have Health Care Power of Accounting File Clerk? No Full Code 08/14/2010 2:57 PM 08/15/2010 2:24 PM Thi s order reflects the patients wishes and were consensually agreed upon. Care Teams Embroidery Finisher Relationship Specialty Start Date End Date Zachariah Duarte DO PCP - General Family Medicine 12/20/20 06/30/23 documented as of this encounter
--- OUTSIDE RECORDS SUMMARY | 2023-08-28 08:34 | External Medical Summary | Summary of Care ---
Author Name Unknown Organization [facility] Address [address] , [place] Care Team Providers Care Nurse Anesthesia Program Director Name Role Phone Zachariah Duarte DO Primary Care Provider [phone] Reason for Visit * Reason Onset Date Comments Advice 06/30/2023 Encounter Details Date Type Department Care Team (Late st Contact Info) Description 06/30/2023 Telephone Pharmacy, [facility] [address] [facility] [place] [address] [facility] [address] 60 [facility] [place] [address] Advice Allergies Active Allergy Reactions Criticality Noted Date Comments Propoxyphene N-Acetaminophen 06/22/2012 N/V Fentanyl Nausea/vomiting 10/15/2009 Oxycodone High 01/21/2023 Other reaction(s): vomiting Oxycodone-Acetaminophen Nausea/vomiting High 010 documented as of this encounter (statuses as of 07/01/2023) Medications Medication Sig Dispensed Refills Start Date End Date Status SYRINGE (DISPOSABLE) 5 ML MISCIndications:DM type 2 causing neurological disease (HCC) use as directed for lantus 1 box 11 09/11/2009 Active ONETOUCH ULTRA 2 W/DEVICE KITIndications:DM type 2, goal A1C 7-8 use as directed 1 Kit 0 03/09/2012 Active ThirdPresenceTOUCH DELICA LANCETS MISCIndications:DM type 2, goal A1C [...] 1 Each 0 04/09/2022 Active oxygen IN GASIndications: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 respiratory failure with hypoxia (HCC),Centrilobular emphysema [...] 90 Tablet 2 11/13/2022 4 Active Umeclidinium [place] 62.5 MCG/ACT Inhalation Aerosol Powder Breath Activated (INCRUSE ellipta)Indications :COPD, group B, by GOLD 2017 classification ([facility]) INHALE ONE PUFF BY MOUTH [...] 12 Hour (Ranexa)Indications :Coronary artery disease of [place] artery of [place] heart with stable angina pectoris ([facility]) TAKE ONE TABLET BY MOUTH [...] hemoglobin A1c goal of less than 8.0% ([facility]) Inject 15 Units under the [...] as of this encounter (statuses as of 07/01/2023) Active Problems Problem Noted Date Diagnosed Date [...] artery disease of n ative artery of [place] heart with stable angina pectoris 01/30/2017 Overview: More specific. 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 Last Assessment & Plan: Cognition at baseline -not tolerating Aricept HTN (hypertension) 09/28/2012 Atherosclerosis of [place] artery of extremity Obstructive sleep apnea 01/13/2010 Overview: ICD-10 update of inactive term Last Assessment & Plan: Compliant with CPAP Old myocardial infarction 10/25/2009 Lumbar disc disorder with myelopathy 10/15/2009 Overview: Fentanyl patch caused severe nausea and vomiting Failed ultram Oxycodone caused nausea Preglaucoma 08/29/1998 History of TIA (transient ischemic attack) documented as of this encounter (statuses as of 07/01/2023) Resolved Problems Problem Noted Date Diagnosed Date [...] as of this encounter (statuses as of 07/01/2023) Immunizations Name Administration Dates Next Due COVID-19 [...] Miscellaneous Notes * Telephone Encounter - Layne Fuller, [facility] - 07/01/2023 1:53 PM EST LVM to pt. Asked to call back if Dr Elder is no longer his PCP. [facility] states no PCP in chart. Spoke with [employer] rep today. Initial form that was submitted was rejected bc it was signed by RN TRAVELING,needs to be signed by PCP with NPI number. New form completed and emailed to provider (Felicia) for signature. Layne Fuller [facility], Pharm.D. Clinical Pharmacist [facility] ([facility]) (formerly Telepharmacy) [phone] 07/01/2023,1:55 PM * Telephone Encounter - Yesenia Harris, manager flight - 06/30/2023 3:46 PM EST Caller's name: Kaleb Preferred call back number(OFFICE NUMBER FOR ): [phone] Reason for call: requesting a call back, he is trying to get a home INR machine from [employer] but they need a signed prescription. Yesenia Harris MA Housekeeping Cleaner I [facility] ([facility]) (formerly Telepharmacy) [address] [facility] [address] [place] [phone] ext [phone] documented in this encounter Plan of Treatment Upcoming Encounters Date Type Department Care Team (Late st Contact Info) Description 07/12/2023 8:40 AM EST Laboratory Lab Mobile Phlebotomy [facility] [place] [address] [place] [address] [facility] [facility] Mobile Home Draw [address] [place] [address] 07/13/2023 6:00 AM EST Anticoagulation Pharmacy Call Center [address] [place] [address] [facility], [facility] 58 60 [facility] [place] [address] 07/19/2023 4:00 PM EST [facility], [facility] [address] [facility] [place] [address] Danitza Salinas, RN 132 [facility] [place] [address] 07/21/2023 10:00 AM EST Scheduled Telephone [facility], [facility] [address] [facility] [place] [address] [facility] Nurse Triage 132 [facility] [place] [address] 07/22/2023 3:00 PM EST Office Visit Sleep Disorders Ctr [facility] 132 [facility] [place] [phone] Marnie Hartman, 132 [facility] [place] [address] 03/28/2024 2:00 PM EDT Office Visit Rheumatology [place] [phone] [facility] [place], [place] [address] Yudi Horowitz CRNP [facility] [place], [place] [address] Scheduled Procedures Name Priority Associated Diagnoses Date/Ti [...] Additional history exists CKD PHOS USE SMARTSET 39787 07/02/202306/23, 07/01/2021, 03/22/2020 Diabetic Eye Exam 07/20/2023 [...] Scan 03/11/2024 03/11/2023 CKD HGB USE SMARTSET 34124 03/29/202403/29, 03/29/2023, 12/01/2022, Additional history exists Albumin/Creatinine Ratio 05/31/2024 023, 10/20/2021, 08/11/2017, Additional history exists DTaP,Tdap,and Td Vaccines (3 - Td or Tdap) 01/11/2028 01/10/2018, 10/03/2012 Pneumococcal Vaccine: 65+ Years Completed 05/14/2015, 09/11/2009, 07/12/2003 Zoster Vaccines Completed 03/22/2020, 08/30/2019 COLONOSCOPY-EVERY 5 YRS AGES 18-100 Discontinued 11/19/2020, 11/19/2020, 05/16/2015, Additional history exists Alpha-1 Antitrypsin Completed 03/11/2022 VITAMIN D LEVEL ONCE IN A LIFETIME-USE SMARTSET# [id number] Completed 03/29/2023, 05/12/2014 Influenza Vaccine (FLU shot) [...] the patient have Health Care Power of Circulation Assistant? No Full Code 08/14/2010 2:57 PM 08/15/2010 2:24 PM Thi s order reflects the patients wishes and were consensually agreed upon. Care Teams Nurse Anesthesia Program Director Relationship Specialty Start Date End Date Zachraiah Duarte DO PCP - General Family Medicine 12/20/20 06/30/23 documented as of this encounter
--- OUTSIDE RECORDS SUMMARY | 2023-08-28 08:34 | External Medical Summary | Summary of Care ---
Author Name Unknown Organization [facility] Address [address] [facility] [address] [place] [address] Phone [phone] Care Team Providers Care Farm Adviser Name Role Phone Zachariah Duarte DO Primary Care Provider Reason for Visit * Reason Onset Date Comments Information 06/29/2023 Encounter Details Date Type Department Care Team (Late st Contact Info) Description 06/29/2023 Telephone Cardiology, [facility] [address] [place] [address] Faby Singleton, [place] [address] [place] [phone] Information Allergies Active Allergy Reactions Criticality Noted [...] as directed 1 Kit 0 03/09/2012 Active SonomaTOUCH DELICA LANCETS MISCIndications:DM type 2, goal A1C [...] 1 Each 0 04/09/2022 Active oxygen IN GASIndications: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 With meals. DISPENSE 5 vials. 0 05/20/2023 Active Memantine HCl 5 MG Oral Tablet (Namenda)Indication s:Dementia in Alzheimer's disease ([facility]) TAKE ONE TABLET BY MOUTH [...] artery disease of n ative artery of [place] heart with stable angina pectoris 01/30/2017 Overview: More specific. 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 Last Assessment & Plan: Cognition at baseline -not tolerating Aricept HTN (hypertension) 09/28/2012 Atherosclerosis of [place] artery of extremity Obstructive sleep apnea 01/13/2010 [...] concern over cost - [facility]. * Telephone Encounter - [...] Laboratory Lab [facility] [address] [place] [address] [facility], [facility] Mobile Home Draw [address] [place] [address] 07/13/2023 6:00 AM EST Anticoagulation Pharmacy Call Center [address] [place] [address] [facility] [address] 60 [place] [address] 07/19/2023 4:00 PM EST [facility], [facility] [address] [place] [address] Danitza Salinas, RN [address] [place] [address] 07/21/2023 10:00 AM EST Scheduled Telephone [facility], [facility] [address] [place] [address] [facility] Nurse Triage [address] [place] [address] 07/22/2023 3:00 PM EST Office Visit Sleep Disorders Ctr [facility] [place] [address] [place] [phone] Marnie Hartmanaret, [address] [place] [address] 03/28/2024 2:00 PM EDT Office Visit Rheumatology [facility] [address] [place] [address] Yudi Horowitz CRNP [address] [place] [address] Scheduled Procedures Name Priority Associated Diagnoses Date/Ti [...] Additional history exists CKD PHOS USE SMARTSET 50570 07/02/202306/23, 07/01/2021, 03/22/2020 Diabetic Eye Exam 07/20/2023 [...] Scan 03/11/2024 03/11/2023 CKD HGB USE SMARTSET 47348 03/29/202403/29, 03/29/2023, 12/01/2022, Additional history exists Albumin/Creatinine Ratio 05/31/2024 023, 10/20/2021, 08/11/2017, Additional history exists DTaP,Tdap,and Td Vaccines (3 - Td or Tdap) 01/11/2028 01/10/2018, 10/03/2012 Pneumococcal Vaccine: 65+ Years Completed 05/14/2015, 09/11/2009, 07/12/2003 Zoster Vaccines Completed 03/22/2020, 08/30/2019 COLONOSCOPY-EVERY 5 YRS AGES 18-100 Discontinued 11/19/2020, 11/19/2020, 05/16/2015, Additional history exists Alpha-1 Antitrypsin Completed 03/11/2022 VITAMIN D LEVEL ONCE IN A LIFETIME-USE SMARTSET# [id number] Completed 03/29/2023, 05/12/2014 Influenza Vaccine (FLU shot) [...] the patient have Health Care Power of Tmh Teacher? No Full Code 08/14/2010 2:57 PM 08/15/2010 2:24 PM Thi s order reflects the patients wishes and were consensually agreed upon. Care Teams Farm Adviser Relationship Specialty Start Date End Date Zachariah Duarte DO PCP - General Family Medicine 12/20/20 06/30/23 documented as of this encounter
--- OUTSIDE RECORDS SUMMARY | 2023-08-28 08:34 | External Medical Summary | Summary of Care ---
Author Name Unknown Organization [facility] Address [address] [facility] [place] [address] Phone [phone] Care Team Providers Care Churner Name Role Phone Unavailable Primary Care Provider Unavailabl e Reason for Visit * Reason Comments Medication Refill Encounter Details Date Type Department Care Team (Late st Contact Info) Description 07/18/2023 Refill Family Practice [facility] [address] [facility] [place] [address] Zachariah Duarte, DO [address] [place] [address] Gastroesophageal reflux disease Allergies Active Allergy Reactions Criticality Noted Date [...] 1 Each 0 2 Active oxygen IN GASIndications: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 Last Assessment & Plan: Cognition at baseline -not tolerating Aricept HTN (hypertension) 09/28/2012 Atherosclerosis of [place] artery of extremity Obstructive sleep apnea 01/13/2010 [...] encounter Miscellaneous Notes * Telephone Encounter - Presley Quiroz MD - 07/19/2023 1:40 PM EST Signed Prescriptions: Disp Refills Pantoprazole Sodium 40 MG Oral Tablet Sommer*90 Tab*2 Sig: TAKE ONE TABLET BY MOUTH EVERY DAY Authorizing Provider: PRESLEY QUIROZ * Telephone Encounter - Estela White LPN - 07/19/2023 12:35 PM ESTPending Prescriptions: Disp Refills Pantoprazole Sodium 40 MG Oral Tablet Sommer*90 Tab*2 Sig: TAKE ONE TABLET BY MOUTH EVERY DAY * Telephone Encounter - Estela White LPN - 07/19/2023 12:34 PM EST Assist to set up with new pcp * Telephone Encounter - Estela White LPN - 07/19/2023 12:33 PM EST DOD Did you pend patient's preferred pharmacy and medication before forwarding?yes Pharmacy: [facility] Pending Prescriptions: Disp Refills Pantoprazole Sodium 40 MG Oral Tablet Del*90 Tab*2 Sig: TAKE ONE TABLET BY MOUTH EVERY DAY Last Visit: 05/18/2023 (in office), Visit date not found (telemedicine) Next Visit: Visit date not found If no future appointments scheduled, and last appointment is greater than a year ago, please schedule patient for a follow-up appointment Last date the medication was ordered: 10/06/22 Is this request for a controlled substance?No Urine Drug Screen:No results found. However, due to the size of the patient record, not all encounters were searched. Please check Results Review for a complete set of results. Patient Phone Numbers Labs: Lab Results Component Value Date/Time CREAT 1.4 (H) 05/27/2023 01:24 PM CREAT 1.6 (H) 03/22/2020 03:38 PM CREAT 0.8 10/09/1996 08:35 AM POTASSIUM 4.5 05/27/2023 01:24 PM POTASSIUM 5.3 (H) 03/22/2020 03:38 PM POTASSIUM 4.2 10/09/1996 08:35 AM TSH 2.71 03/29/2023 11:11 AM TSH 0.92 12/08/2016 03:58 PM LDLCALC 66 05/27/2023 01:24 PM LDLCALC 58 03/22/2020 03:38 PM LDLCALC 119. 10/09/1996 08:35 AM LDLDIRECT NOT APPLICABLE 03/22/2020 03:38 PM LDLDIRECT 69 04/14/2015 11:10 AM ALT 16 04/14/2023 11:52 AM ALT 16 03/22/2020 03:38 PM ALT 30 10/09/1996 08:35 AM HGBA1C 7.0 (H) 04/14/2023 11:52 AM HGBA1C 6.8 (H) 03/22/2020 03:38 PM HGBA1C 10.4 (H) 10/09/1996 08:35 AM * Telephone Encounter - Bonnie Steele [facility] - 07/19/2023 10:35 AM EST Pending Prescriptions: Disp Refills Pantoprazole Sodium 40 MG Oral Tablet Sommer*90 Tab*2 Sig: TAKE ONE TABLET BY MOUTH EVERY DAY * Telephone Encounter - Bonnie Steele RP - 07/19/2023 10:34 AM EST Patient has no PCP under whom to authorize refills. Please approve if appropriate. Thank You Bonnie Steele, PharmD Clinical Pharmacist [facility] [phone] / [phone] 07/19/2023, 10:34 AM * Telephone Encounter - Bonnie Steele RP - 07/19/2023 10:33 AM EST Did you pend patient's preferred pharmacy and medication before forwarding?yes Pharmacy: [facility] Pending Prescriptions: Disp Refills Pantoprazole Sodium 40 MG Oral Tablet Del*90 Tab*2 Sig: TAKE ONE TABLET BY MOUTH EVERY DAY Last Visit: 05/18/2023 (in office), Visit date not found (telemedicine) Next Visit: Visit date not found If no future appointments scheduled, and last appointment is greater than a year ago, please schedule patient for a follow-up appointment Last date the medication was ordered: 10/06/22 Is this request for a controlled substance?No Urine Drug Screen:No results found. However, due to the size of the patient record, not all encounters were searched. Please check Results Review for a complete set of results. Patient Phone Numbers Labs: Lab Results Component Value Date/Time CREAT 1.4 (H) 05/27/2023 01:24 PM CREAT 1.6 (H) 03/22/2020 03:38 PM CREAT 0.8 10/09/1996 08:35 AM POTASSIUM 4.5 05/27/2023 01:24 PM POTASSIUM 5.3 (H) 03/22/2020 03:38 PM POTASSIUM 4.2 10/09/1996 08:35 AM TSH 2.71 03/29/2023 11:11 AM TSH 0.92 12/08/2016 03:58 PM LDLCALC 66 05/27/2023 01:24 PM LDLCALC 58 03/22/2020 03:38 PM LDLCALC 119. 10/09/1996 08:35 AM LDLDIRECT NOT APPLICABLE 03/22/2020 03:38 PM LDLDIRECT 69 04/14/2015 11:10 AM ALT 16 04/14/2023 11:52 AM ALT 16 03/22/2020 03:38 PM ALT 30 10/09/1996 08:35 AM HGBA1C 7.0 (H) 04/14/2023 11:52 AM HGBA1C 6.8 (H) 03/22/2020 03:38 PM HGBA1C 10.4 (H) 10/09/1996 08:35 AM documented in this encounter Plan of Treatment Upcoming Encounters Date Type Department Care Team (Late st Contact Info) Description 07/19/2023 4:00 PM EST Home Visit [facility] [place], [facility] [address] [place] [address] Danitza Salinas RN [address] [place] [address] 07/21/2023 10:00 AM EST Scheduled Telephone [facility], [facility] [address] [place] [address] [address] [place] Nurse Triage [address] [place] [address] 07/22/2023 3:00 PM EST Office Visit Sleep Disorders [facility] [address] [place] [phone] Marnie Hartman, DO [address] [place] [address] 07/26/2023 9:10 AM EST Laboratory Lab [place] [facility] [address] [place] [address] [facility], [facility] Mobile Home Draw [address] [place] [address] 07/27/2023 6:00 AM EST Anticoagulation Pharmacy Call Center [phone] [facility] [address] [facility], [facility] [address] [facility] [address] 03/28/2024 2:00 PM EDT Office Visit [address]umatology [address] [place] [address] Yudi Horowitz CRNP [facility] [place] In [place] [address] Scheduled Procedures Name Priority Associated Diagnoses Date/Ti [...] Additional history exists CKD PHOS USE SMARTSET 11299 07/02/202306/23, 07/01/2021, 03/22/2020 Diabetic Eye Exam 07/20/2023 [...] Scan 03/11/2024 03/11/2023 CKD HGB USE SMARTSET 85314 03/29/202403/29, 03/29/2023, 12/01/2022, Additional history exists Albumin/Creatinine Ratio 05/31/2024 023, 10/20/2021, 08/11/2017, Additional history exists DTaP,Tdap,and Td Vaccines (3 - Td or Tdap) 01/11/2028 01/10/2018, 10/03/2012 Pneumococcal Vaccine: 65+ Years Completed 05/14/2015, 09/11/2009, 07/12/2003 Zoster Vaccines Completed 03/22/2020, 08/30/2019 COLONOSCOPY-EVERY 5 YRS AGES 18-100 Discontinued 11/19/2020, 11/19/2020, 05/16/2015, Additional history exists Alpha-1 Antitrypsin Completed 03/11/2022 VITAMIN D LEVEL ONCE IN A LIFETIME-USE SMARTSET# [id number] Completed 03/29/2023, 05/12/2014 Influenza Vaccine (FLU shot) Completed 05/18/2023, 05/27/2022, 06/23/2021, Additional history exists GARDASIL-HPV IMMUNIZATION SERIES Aged Out No longer eligible based on patient's age to complete this topic MENINGOCOCCAL (MENACTRA/MENVEO) Aged Out No longer eligible based on patient's age to complete this topic documented as of this encounter Medical Devices Not on filedocumented as of this encounter Visit Diagnoses Diagnosis Gastroesophageal reflux disease Esophageal reflux documented in this encounter Advance Directives Latest [...] the patient have Health Care Power of Branch Library Clerk? No Full Code 08/14/2010 2:57 PM 08/15/2010 2:24 PM Thi s order reflects the patients wishes and were consensually agreed upon.
--- OUTSIDE RECORDS SUMMARY | 2023-08-28 08:35 | External Medical Summary | Summary of Care ---
Author Name Unknown Organization [facility] Address [address] [facility] [place] [address] Phone [phone] Care Team Providers Care Power Plant Supervisor Name Role Phone Zachariah Duarte DO Primary Care Provider Reason for Visit * Reason Onset Date Comments [facility]: Maintenance 06/11/2023 Encounter Details Date Type Department Care Team Description 06/11/2023 Scheduled Telephone [facility], [facility] [address] [facility] [place] [address] [facility] Nurse Triage [address] 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),Centrilobular emphysema [...] BEDTIME 180 Tablet 3 12/30/2022 4 Active Memantine HCl 5 MG Oral Tablet (Namenda)Indication s: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) TAKE ONE TABLET BY MOUTH IN THE MORNING AND ONE TABLET BEFORE BEDTIME 60 Tablet 5 12/29/2022 4 Active traZODone HCl 100 MG Oral Tablet (Desyrel) TAKE ONE TABLET BY MOUTH AT BEDTIME NEEDED FOR SLEEP 90 Tablet 2 11/13/2022 4 Active Umeclidinium [place] 62.5 MCG/ACT Inhalation Aerosol Powder Breath Activated (INCRUSE ellipta)Indications :COPD, group B, by GOLD 2017 classification ([facility]) INHALE ONE PUFF BY MOUTH [...] 12 Hour (Ranexa)Indications :Coronary artery disease of [place] artery of [place] heart with stable angina pectoris (HCC) TAKE [...] A1c goal of less than 8.0% ([facility]) Inject 15 Units under the skin in the morning and 15 Units at noon and 15 Units before bedtime. With meals. DISPENSE 5 vials. 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 of [...] f/u closely Type 2 diabetes mellitus without complic ation 10/26/2022 Last Assessment & Plan: Continue novolin 15 u TID Gait disturbance 10/26/2022 Severe obesity (BMI 35.0-39.9) with srinivas rbidity 08/26/2022 COPD, group B, by GOLD 2017 classificati on 08/03/2022 Overview: Per COPD GOLD Classification Last Assessment [...] flutter 07/31/2022 Chronic respiratory failure with hypoxia 02/11/2022 Last Assessment & Plan: Only wearing oxygen [...] dose: 40 mg Diastolic congestive heart failure 10/20 Last Assessment & Plan: Continue Lasix Spironolactone discontinued Atrial flutter 10/20/2021 Last Assessment & Plan: Rate controlled -changed from eliquis to coumadin. Last INR 3.9. Pharmacy following Centrilobular emphysema 10/20/2021 Chronic kidney disease, stage 3a 021 Overview: Per CKD protocol Asymptomatic bilateral carotid artery st enosis 12/25/2020 Last Assessment & Plan: Continue Ranexa, Plavix, atorvastatin Gastro-esophageal reflux disease without esophagitis 12/25/2020 Last Assessment & Plan: Controlled with pantoprazole PAD (peripheral artery disease) 03/02/20 19 Ectatic abdominal aorta 01/24/2018 S/P primary angioplasty with coronary st ent 01/30/2017 Last Assessment & Plan: Plan as noted above Coronary artery disease of n ative artery of [place] heart with stable angina pectoris 01/30/2017 Overview: More specific. 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 17 Last Assessment & Plan: Cognition at baseline -not tolerating Aricept HTN (hypertension) 09/28/2012 Atherosclerosis of [place] artery of extr emity 06/22/2012 Obstructive sleep apnea 01/13/2010 Overview: ICD-10 update of inactive term Last Assessment & Plan: Compliant with CPAP Old myocardial infarction 10/25/2009 Lumbar disc disorder with myelopathy Overview: Fentanyl patch caused severe nausea and vomiting Failed ultram Oxycodone caused nausea Preglaucoma 08/29/1998 History of TIA (transient ischemic attac k) documented as of this encounter (statuses as of 06/11/2023) Resolved Problems Problem Noted Date Resolved Date Diabetic polyneuropathy asso ciated with type 1 diabetes mellitus 10/26/2022 10/26/2022 Hypertensive kidney disease with stage 3a chronic kidney disease 10/05/2022 10/20/2022 CKD stage 3 due to type 1 diabetes mellitus 04/202001/26/2022 Overview: Per CKD protocol-More specific added to [...] current coding guidelines. 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 HTN, goal below 130/80 03/31/2012 2 Overview: Per HTN Protocol #27. Hypertension goal BP (blood pressure) < 140/90 0 10/06/2011 03/31/2012 HTN, goal below 130/80 09/18/2009 2 Overview: Per HTN Taxonomy. Diuretics caused dizziness. Dyslipidemia, goal LDL below 70 08/01/2009 10/26/2022 Overview: Per Lipid Taxonomy. Last Assessment & Plan: Continue atorvastatin Type 1 diabetes mellitus wit h hemoglobin A1c goal of less than 7.0% 06/06/2009 10/25/2009 Overview: Modified per Diabetes protocol #14. ICD-10 update of inactive term DM type 1, not at goal 07/29/2001 9 Overview: Modified per Diabetes protocol #14. Dyslipidemia, goal to be determined 07/29/2001 07/17/2009 Overview: Per Lipid Taxonomy Other psoriasis 07/29/2001 03/22/2020 HTN, goal below 140/90 07/29/2001 0 Overview: Per HTN Taxonomy. CELLULITIS OF LEG of L vein graft site 8 02/19/1998 PURE HYPERCHOLESTEROLEM 08/01/20 09 Overview: Per Lipid Taxonomy. CHR ISCHEMIC HRT DIS NEC 010 DM type 2, not at goal 9 Overview: Modified per Diabetes protocol #14. documented as of this encounter (statuses as of 06/11/2023) Immunizations Name Administration Dates Next Due COVID-19 [...] pur e alcohol) 6 drink/yr if that Food Insecurity Answer Date Recorded Within the past 12 months, y ou worried that your food would run out before you got money to buy more. Never true 11/20/2022 Within the past 12 months, t he food you bought just didn't last and you didn't have money to get more. Never true 11/20/2022 Sex Assigned at Date Recorded Male 11/20/2022 1:24 PM E DT Job Start Date Occupation Industry Not on [...] encounter Miscellaneous Notes * Telephone Encounter - Mackenzie Garcia RN - 06/11/2023 10:35 AM EDT Patient calling to speak to Isabel. He said she was to call him today a 1 pm. They will not be home. They are leaving for a family emergency. Isabel not logged on at this time. Will send message toher to reschedule call. Routed to SWAPNA Soto. RN GAH headrig sawyer [phone] documented in this encounter Plan of Treatment Upcoming Encounters Date Type Specialty Care Team Description 06/24/2023 Laboratory Laboratory Processing [facility], [facility] Mobile Home Draw [address] [place] [address] 06/25/2023 Anticoagulation Pharmacy [facility] [address] [place] [address] 07/22/2023 Office Visit Sleep Disorders Marnie Hartman, DO [address] [place] [address] 03/28/2024 Office Visit Rheumatology Yudi Horowitz CRNP [address] [place] [address] Scheduled Procedures Name Priority Associated Diagnoses Date/Ti me COLONOSCOPY FLEXIBLE PROXIMAL DIAGNOSTIC Recall History of colon polyps Health Maintenance Due Date Last Done Comments COLONOSCOPY-EVERY 2 YRS AGES 18-100 11/19/2022 11/19/2020, 11/19/2020, 05/16/2015, Additional history exists Diabetic Foot Exam 02/06/2023 02/06/2022, 0 08/30/2019, 08/18/2018, Additional history exists COVID-19 Vaccine ( season) 2023 12/23/2021, 07/24/2021, 07/24/2021, Additional history exists CKD PHOS USE SMARTSET 58041 07/02/202306/23, 07/01/2021, 03/22/2020 DIABETES-EYE EXAM 07/20/2023 07/20/2022, , 08/26/2020, Additional history exists O2 ASSESSMENT COMPLETED IN PAST YEAR FOR COPD 08/10/2023 08/10/2022 DISCUSS TOBACCO CESSATION (REFER TO SMARTSET #3291) 08/26/2023 08/26/2022, 05/27/2022, 02/11/2022, Additional history exists HbA1c 10/15/2023 04/14/2023, 06/23, 02/06/2022, Additional history exists Depression Screening 11/21/2023 11/20/2022 GFR 11/26/2023 05/27/2023, 03/24, 03/29/2023, Additional history exists DXA Scan 03/11/2024 03/11/2023 CKD HGB USE SMARTSET 59431 03/29/202403/29, 03/29/2023, 12/01/2022, Additional history exists Albumin/Creatinine Ratio 05/31/2024 023, 10/20/2021, 08/11/2017, Additional history exists DTaP,Tdap,and Td Vaccines (3 - Td or Tdap) 01/11/2028 01/10/2018, 10/03/2012 Pneumococcal Vaccine: 65+ Years Completed 05/14/2015, 09/11/2009, 07/12/2003 Zoster Vaccines Completed 03/22/2020, 08/30/2019 COLONOSCOPY-EVERY 5 YRS AGES 18-100 Discontinued 11/19/2020, 11/19/2020, 05/16/2015, Additional history exists Alpha-1 Antitrypsin Completed 03/11/2022 VITAMIN D LEVEL ONCE IN A LIFETIME-USE SMARTSET# [id number] Completed 03/29/2023, 05/12/2014 Influenza Vaccine (FLU shot) Completed 05/18/2023, 05/27/2022, 06/23/2021, Additional history exists GARDASIL-HPV IMMUNIZATION SERIES Aged Out No longer eligible based on patient's age to complete this topic Hepatitis B Aged Out No longer eligi ble based on patient's age to complete this [...] the patient have Health Care Power of Brine Supervisor? No Full Code 08/14/2010 2:57 PM 08/15/2010 2:24 PM Thi s order reflects the patients wishes and were consensually agreed upon. Care Teams Power Plant Supervisor Relationship Specialty Start Date End Date Zachariah Duarte DO [address] [place] [address] PCP - General Family Medicine 12/20/20 documented as of this encounter
--- OUTSIDE RECORDS SUMMARY | 2023-08-28 08:35 | External Medical Summary | Summary of Care ---
Author Name Unknown Organization [facility] Address [address] [facility] [place] [address] Phone [phone] Care Team Providers Care Physical Sciences Professor Name Role Phone Zachariah Duarte DO Primary Care Provider Reason for Visit * Reason Comments FYI [facility] INR stat us Encounter Details Date Type Department Care Team Description 06/10/2023 Anticoagulation Pharmacy Call Center [address] [place] [address] [facility] [address] [facility] [place] [address] Anticoagulation management encounter* Allergies Active Allergy Reactions Severity Noted Date Comments Propoxyphene N-Acetaminophen 06/22/2012 N/V Fentanyl Nausea/vomiting 10/15/2009 Oxycodone High 01/21/2023 Other reaction(s): vomiting Oxycodone-Acetaminophen Nausea/vomiting High 010 documented as of this encounter (statuses as of 06/10/2023) Medications Medication Sig Dispensed Refills Start Date [...] 1 Each 0 04/09/2022 Active oxygen IN GASIndications:Patient Care Assistant bobbi respiratory failure with hypoxia (HCC),Centrilobular [...] 90 Tablet 2 11/13/2022 4 Active Umeclidinium [place] 62.5 MCG/ACT Inhalation Aerosol Powder Breath Activated (INCRUSE ellipta)Indications :COPD, group B, by GOLD 2017 classification ([facility]) INHALE ONE PUFF BY MOUTH [...] 12 Hour (Ranexa)Indications :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 With meals. DISPENSE 5 vials. 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 Last Assessment & Plan: Cognition at baseline -not tolerating Aricept HTN (hypertension) 09/28/2012 Atherosclerosis of huslia artery of extr emity 06/22/2012 Obstructive sleep apnea 01/13/2010 Overview: ICD-10 update of inactive term Last Assessment & Plan: Compliant with CPAP Old myocardial infarction 10/25/2009 Lumbar disc disorder with myelopathy Overview: Fentanyl patch caused severe nausea and vomiting Failed ultram Oxycodone caused nausea Preglaucoma 08/29/1998 History of TIA (transient ischemic attac k) documented as of this encounter (statuses as of 06/10/2023) Resolved Problems Problem Noted Date Resolved Date [...] DM type 1, not at goal 07/29/2001 10/15/200 9 Overview: Modified per Diabetes protocol #14. [...] as of this encounter (statuses as of 06/10/2023) Immunizations Name Administration Dates Next Due COVID-19 [...] as of this encounter Progress Notes * Layne Fuller, [facility] - 06/10/2023 2:03 PM EDT Spoke with Daksha casarez today. Forms mistakenly scanned in under 's name since she is an existing pt. Rep reviewed form and states some information is missing. She will fax form back to provider to complete: Prescribing provider and NPI are missiing in appropriate box on form. Will need to be completed with Initials and date next to those montemayor (item 3) since exisiting form is not being edited. They will not accept information written at the bottom of the form. Please be aware fax is coming; Complete Item 3 and add initials and date. Thank you, Layne Fuller [facility], Pharm.D. Clinical Pharmacist [facility] ([facility]) (formerly Telepharmacy) [phone] 06/10/2023,2:34 PM documented in this encounter Plan of Treatment Upcoming Encounters Date Type Specialty Care Team Description 06/11/2023 Scheduled Telephone [facility] Nurse Triage [address] [place] [address] 06/24/2023 Laboratory Laboratory Processing [facility], [facility] Mobile Home Draw [address] [place] [address] 06/25/2023 Anticoagulation Pharmacy [facility] [address] [place] [address] 07/22/2023 Office Visit Sleep Disorders Marnie Hartman DO [address] [place] [address] 03/28/2024 Office Visit Rheumatology Yudi Horowitz CRNP [address] [facility] [place] [address] Scheduled Procedures Name Priority Associated Diagnoses Date/Ti me COLONOSCOPY FLEXIBLE PROXIMAL DIAGNOSTIC Recall History of colon polyps Health Maintenance Due Date Last Done Comments COLONOSCOPY-EVERY 2 YRS AGES 18-100 11/19/2022 11/19/2020, 11/19/2020, 05/16/2015, Additional history exists Diabetic Foot Exam 02/06/2023 02/06/2022, 0 08/30/2019, 08/18/2018, Additional history exists COVID-19 Vaccine (2022- season) 2023 12/23/2021, 07/24/2021, 07/24/2021, Additional history exists CKD PHOS USE SMARTSET 46967 07/02/202306/23, 07/01/2021, 03/22/2020 DIABETES-EYE EXAM 07/20/2023 07/20/2022, [...] Scan 03/11/2024 03/11/2023 CKD HGB USE SMARTSET 33440 03/29/202403/29, 03/29/2023, 12/01/2022, Additional history exists Albumin/Creatinine Ratio 05/31/2024 023, 10/20/2021, 08/11/2017, Additional history exists DTaP,Tdap,and Td Vaccines (3 - Td or Tdap) 01/11/2028 01/10/2018, 10/03/2012 Pneumococcal Vaccine: 65+ Years Completed 05/14/2015, 09/11/2009, 07/12/2003 Zoster Vaccines Completed 03/22/2020, 08/30/2019 COLONOSCOPY-EVERY 5 YRS AGES 18-100 Discontinued 11/19/2020, 11/19/2020, 05/16/2015, Additional history exists Alpha-1 Antitrypsin Completed 03/11/2022 VITAMIN D LEVEL ONCE IN A LIFETIME-USE SMARTSET# [id number] Completed 03/29/2023, 05/12/2014 Influenza Vaccine (FLU shot) [...] the patient have Health Care Power of Enterprise Infrastructure Architect? No Full Code 08/14/2010 2:57 PM 08/15/2010 2:24 PM Thi s order reflects the patients wishes and were consensually agreed upon. Care Teams Physical Sciences Professor Relationship Specialty Start Date End Date Zachariah Duarte DO [address] [place] [address] PCP - General Family Medicine 12/20/20 documented as of this encounter
--- OUTSIDE RECORDS SUMMARY | 2023-08-28 08:35 | External Medical Summary | Summary of Care ---
Author Name Unknown Organization [facility] Address [address] [place] [address] Phone [phone] Care Team Providers Care Cloth Desizing Range Tender Name Role Phone Zachariah Duarte DO Primary Care Provider Reason for Referral * Evaluate & Treat - Unlimited Visits (Within 10 days (routine)) - Authorized Specialty Diagnoses / Procedures Referred By Tito zaidi Referred To Contact Pain Management / Pain Medicine Diagnoses Spinal stenosis of lumbar region, unspecified whether neurogenic claudication present Valerie Tilley PA-C [address] [place] [address] Referral ID Status Reason Start Date Expiration Date Visits Requested Visits Authorized [id number] Authorized Specialty Services Required 3 [phone] Question Answer Referral Priority Within 10 days (routine) Where should this appointment be scheduled? [facility] Reason for referral? Interventional Pain Management - (Injection) What condition is the patient being referred for? Lumbar Radiculopathy - bilateral L34 L45 TFESI What is the preferred location to have this test performed? [facility] Comments Patient Name: Kaleb Oakley Date of : 1945 Department Phone Number: MRI or CT (if unable to have a MRI) is recommended if any of the following apply: 1. Patient has neck or back pain with radiation to extremities. A previous MRI will be accepted if symptoms unchanged since prior MRI. 2. Spinal surgery since last MRI. If yes, order a MRI with and without contrast. 3. Hx or ongoing cancer treatment. Patient will need spine x-ray (Ap/Lat) for axial neck or back pain if not done previously. Fax No. [facility] [phone] or contact assistant front office manager [phone] Fax No. [facility] [phone] or contact assistant front office manager [phone] Fax No. [facility] [phone] or contact assistant front office manager [phone] Reason for Visit * Reason Comments Follow Up Encounter Details Date Type Department Care Team (Late st Contact Info) Description 06/17/2023 8:00 AM EDT Telemedicine Orthopaedics Spine Surgery, [place] [address] [place] [phone] Valerie Tilley PA-C [address] [place] [address] Spinal stenosis of lumbar region, unspecified whether neurogenic claudication present* Allergies Active Allergy Reactions Criticality Noted Date Comments Propoxyphene N-Acetaminophen 06/22/2012 N/V Fentanyl Nausea/vomiting 10/15/2009 Oxycodone High 01/21/2023 Other reaction(s): vomiting Oxycodone-Acetaminophen Nausea/vomiting High 010 documented as of this encounter (statuses as of 06/17/2023) Medications Medication Sig Dispensed Refills Start Date [...] 1 Each 0 04/09/2022 Active oxygen IN GASIndications: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 respiratory failure with hypoxia (HCC),Centrilobular emphysema [...] 90 Tablet 2 11/13/2022 4 Active Umeclidinium [place] 62.5 MCG/ACT Inhalation Aerosol Powder Breath Activated (INCRUSE ellipta)Indications :COPD, group B, by GOLD 2017 classification ([facility]) INHALE ONE PUFF BY MOUTH EVERY DAY [...] 12 Hour (Ranexa)Indications :Coronary artery disease of nulato artery of nulato heart with stable angina pectoris ([facility]) TAKE ONE TABLET BY MOUTH TWICE A [...] of less than 8.0% ([facility]) Inject 15 Units under the skin in the morning and 15 Units at noon and 15 Units before bedtime. With meals. DISPENSE 5 vials. 0 05/20/2023 Active documented as of this encounter (statuses as of 06/17/2023) Active Problems Problem Noted Date Diagnosed Date [...] artery disease of n ative artery of nulato heart with stable angina pectoris 01/30/2017 Overview: More specific. 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 Last Assessment & Plan: Cognition at baseline -not tolerating Aricept HTN (hypertension) 09/28/2012 Atherosclerosis of nulato artery of extremity Obstructive sleep apnea 01/13/2010 Overview: ICD-10 update of inactive term Last Assessment & Plan: Compliant with CPAP Old myocardial infarction 10/25/2009 Lumbar disc disorder with myelopathy 10/15/2009 Overview: Fentanyl patch caused severe nausea and vomiting Failed ultram Oxycodone caused nausea Preglaucoma 08/29/1998 History of TIA (transient ischemic attack) documented as of this encounter (statuses as of 06/17/2023) Resolved Problems Problem Noted Date Diagnosed Date [...] as of this encounter (statuses as of 06/17/2023) Immunizations Name Administration Dates Next Due COVID-19 [...] as of this encounter Progress Notes * Valerie Tilley PA-C - 06/17/2023 1:31 PM EDT After connecting to the patient via telephone, the patient was identified by name and date of . Patient was then informed that this was a telephone call only visit. The patient agreed to participate. Visit Disposition: Routine follow-up Total call duration was 11 minutes. Orthopaedic Spine Surgery Outpatient Note Date: 06/17/23 Time: Approximately 12:51 PM Patient is a 77-year-old male who was contacted via telephone for follow-up today. He recently underwent an MRI which was reviewed by Dr. Upton. The MRI shows evidence of prior laminectomy from L4-S1 which appears to be well decompressed. Additionally, there is bilateral L3-4, L4-5, and L5-S1 foraminal stenosis. Recommendations moving forward would be possible TFESI bilaterally with pain management at L3-4 and L4-5. Dr. Upton would recommend exhausting injections before potentially considering surgery. If patient gets to the point of surgery, he might need lateral interbody fusions at L3-4 and L4-5. After discussion with the patient, he states he had injections once or twice before and they did not help. I educated him that each injection stands alone and each individual injection has about 75% chance of providing relief. After discussion, patient was agreeable to trying injections again. He would like to pursue those with Dr. Vilchis at [facility] where he got them in the past. He states he is not interested in surgery at this time. Patient's was in the background listening to the conversation. Their questions were answered to apparent satisfaction. Patient was agreeableto and expressed understanding to above plan. Valerie Tilley PA-C Physician Rn Icu - Certified Orthopedic Spine Surgery [place], [place] documented in this encounter Miscellaneous Notes * Addendum Note - Valerie Tilley PA-C - 06/17/2023 2:05 PM EDTAddended by: VALERIE TILLEY on: 06/17/2023 02:05 PM Modules accepted: Orders documented in this encounter Plan of Treatment Upcoming Encounters Date Type Department Care Team (Late st Contact Info) Description 06/24/2023 8:10 AM EDT Laboratory Lab Mobile Phlebotomy [facility] [address] [place] [address] [facility] Mobile Home Draw [address] [place] [address] 06/25/2023 6:00 AM EDT Anticoagulation Pharmacy Call Center [address] [facility] [place] [address] [facility], [facility] [address] [facility] [place] [address] 07/19/2023 4:00 PM EST [facility], [facility] [address] [facility] [place] [address] Danitza Salinas RN [address] [facility] [place] [address] 07/21/2023 10:00 AM EST Scheduled Telephone [facility] [place], [facility] [address] [facility] [place] [address] [facility] Nurse Triage [address] [facility] [place] [address] 07/22/2023 3:00 PM EST Office Visit Sleep Disorders Ctr [facility] [address] [facility] [place] [phone] Marnie Hartman DO [address] [facility] [place] [address] 03/28/2024 2:00 PM EDT Office Visit Rheumatology [place] [phone] Located [facility] [place] [address] Yudi Horowitz CRNP [facility] [place] [address] Scheduled Procedures Name Priority Associated Diagnoses Date/Ti [...] Additional history exists CKD PHOS USE SMARTSET 57691 07/02/202306/23, 07/01/2021, 03/22/2020 DIABETES-EYE EXAM 07/20/2023 07/20/2022, , 08/26/2020, Additional history exists O2 ASSESSMENT COMPLETED IN PAST YEAR FOR COPD 08/10/2023 08/10/2022 DISCUSS TOBACCO CESSATION (REFER TO SMARTSET #3296) 08/26/2023 08/26/2022, 05/27/2022, 02/11/2022, Additional history exists HbA1c 10/15/2023 04/14/2023, 06/23, 02/06/2022, Additional history exists Depression Screening 11/21/2023 11/20/2022 GFR 11/26/2023 05/27/2023, 0810/2022, 03/29/2023, Additional history exists DXA Scan 03/11/2024 03/11/2023 CKD HGB USE SMARTSET 07185 03/29/202403/29, 03/29/2023, 12/01/2022, Additional history exists Albumin/Creatinine Ratio 05/31/2024 023, 10/20/2021, 08/11/2017, Additional history exists DTaP,Tdap,and Td Vaccines (3 - Td or Tdap) 01/11/2028 01/10/2018, 10/03/2012 Pneumococcal Vaccine: 65+ Years Completed 05/14/2015, 09/11/2009, 07/12/2003 Zoster Vaccines Completed 03/22/2020, 08/30/2019 COLONOSCOPY-EVERY 5 YRS AGES 18-100 Discontinued 11/19/2020, 11/19/2020, 05/16/2015, Additional history exists Alpha-1 Antitrypsin Completed 03/11/2022 VITAMIN D LEVEL ONCE IN A LIFETIME-USE SMARTSET# [id number] Completed 03/29/2023, 05/12/2014 Influenza Vaccine (FLU shot) Completed 05/18/2023, 05/27/2022, 06/23/2021, Additional history exists GARDASIL-HPV IMMUNIZATION SERIES Aged Out No longer eligible based on patient's age to complete this topic MENINGOCOCCAL (MENACTRA/MENVEO) Aged Out No longer eligible based on patient's age to complete this topic documented as of this encounter Medical Devices Not on filedocumented as of this encounter Visit Diagnoses Diagnosis Spinal stenosis of lumbar region, unspecified whether neurogenic claudication present- Primary documented in this encounter Advance Directives [...] the patient have Health Care Power of Product Development Consultant? No Full Code 08/14/2010 2:57 PM 08/15/2010 2:24 PM Thi s order reflects the patients wishes and were consensually agreed upon. Care Teams Cloth Desizing Range Tender Relationship Specialty Start Date End Date Zachariah Duarte DO [address] [place] [address] PCP - General Family Medicine 12/20/20 documented as of this encounter
--- OUTSIDE RECORDS SUMMARY | 2023-08-28 08:35 | External Medical Summary | Summary of Care ---
Author Name Unknown Organization [facility] Address [address] [place] [address] Phone [phone] Care Team Providers Care Wing Mailer Machine Operator Name Role Phone Zachariah Duarte DO Primary Care Provider Encounter Details Date Type Department Care Team (Late st Contact Info) Description 06/17/2023 Telephone Orthopaedics Spine Surgery, [place] [address] [place] [facility] [place] [address] Valerie Tilley PA-C [address] [place] [address] Allergies Active Allergy Reactions Criticality Noted Date [...] as directed 1 Kit 0 03/09/2012 Active FrogAppsTOUCH DELICA LANCETS MISCIndications:DM type 2, goal A1C [...] 1 Each 0 04/09/2022 Active oxygen IN GASIndications: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 Last Assessment & Plan: Cognition at baseline -not tolerating Aricept HTN (hypertension) 09/28/2012 Atherosclerosis of st[place] river artery of extremity Obstructive sleep apnea 01/13/2010 [...] encounter Miscellaneous Notes * Telephone Encounter - VENICE El - 06/17/2023 12:10 PM EDT Pt calling requesting a return call. documented in this encounter Plan of Treatment Upcoming Encounters Date Type Department Care Team (Late st Contact Info) Description 06/24/2023 8:10 AM EDT Laboratory Lab Mobile Phlebotomy [facility] [address] [place] [address] [facility] [facility] Mobile Home Draw [address] [place] [address] 06/25/2023 6:00 AM EDT Anticoagulation Pharmacy Call Center [address] [facility] [place] [address] [facility] [address] [place] [address] 07/19/2023 4:00 PM EST [facility], [facility] [address] [place] [address] Danitza Salinas, RN [address] [place] [address] 07/21/2023 10:00 AM EST Scheduled Telephone [facility] [place], [facility] [address] [place] [address] [facility] [address] [place] [address] 07/22/2023 3:00 PM EST Office Visit Sleep Disorders [facility]tr [facility] [address] [place] [phone] Marnie Hartman DO [address] [place] [address] 03/28/2024 2:00 PM EDT Office Visit Rheumatology [facility] [address] [place] [address] Yudi Horowitz CRNP [address] [place] [address] Scheduled Procedures Name Priority Associated Diagnoses Date/Ti [...] Additional history exists CKD PHOS USE SMARTSET 85810 07/02/202306/23, 07/01/2021, 03/22/2020 DIABETES-EYE EXAM 07/20/2023 07/20/2022, , 08/26/2020, Additional history exists O2 ASSESSMENT COMPLETED IN PAST YEAR FOR COPD 08/10/2023 08/10/2022 DISCUSS TOBACCO CESSATION (REFER TO SMARTSET #1119) 08/26/2023 08/26/2022, 05/27/2022, 02/11/2022, Additional history exists HbA1c 10/15/2023 04/14/2023, 06/23, 02/06/2022, Additional history exists Depression Screening 11/21/2023 11/20/2022 GFR 11/26/2023 05/27/2023, 03/24, 03/29/2023, Additional history exists DXA Scan 03/11/2024 03/11/2023 CKD HGB USE SMARTSET 36725 03/29/202403/29, 03/29/2023, 12/01/2022, Additional history exists Albumin/Creatinine Ratio 05/31/2024 023, 10/20/2021, 08/11/2017, Additional history exists DTaP,Tdap,and Td Vaccines (3 - Td or Tdap) 01/11/2028 01/10/2018, 10/03/2012 Pneumococcal Vaccine: 65+ Years Completed 05/14/2015, 09/11/2009, 07/12/2003 Zoster Vaccines Completed 03/22/2020, 08/30/2019 COLONOSCOPY-EVERY 5 YRS AGES 18-100 Discontinued 11/19/2020, 11/19/2020, 05/16/2015, Additional history exists Alpha-1 Antitrypsin Completed 03/11/2022 VITAMIN D LEVEL ONCE IN A LIFETIME-USE SMARTSET# [id number] Completed 03/29/2023, 05/12/2014 Influenza Vaccine (FLU shot) [...] the patient have Health Care Power of Box Folding Machine Operator? No Full Code 08/14/2010 2:57 PM 08/15/2010 2:24 PM Thi s order reflects the patients wishes and were consensually agreed upon. Care Teams Wing Mailer Machine Operator Relationship Specialty Start Date End Date Zachariah Duarte DO [address] [place] [address] PCP - General Family Medicine 12/20/20 documented as of this encounter
--- OUTSIDE RECORDS SUMMARY | 2023-08-28 08:35 | External Medical Summary | Summary of Care ---
Author Name Unknown Organization [facility] Address [address] [facility] [place] [address] Phone [phone] Care Team Providers Care Sheriffs Detective Name Role Phone Zachariah Duarte DO Primary Care Provider Reason for Visit * Reason Comments Dosage Adjustment Via Phone (anticoag Cl inic) Encounter Details Date Type Department Care Team (Latest Contact Info) Description 06/25/2023 6:00 AM EDT Anticoagulation Pharmacy Call Center [phone] [place] [address] [facility] [address] [facility] [place] [address] Anticoagulation management encounter* Allergies Active Allergy Reactions Criticality Noted Date Comments Propoxyphene N-Acetaminophen 06/22/2012 N/V Fentanyl Nausea/vomiting 10/15/2009 Oxycodone High 01/21/2023 Other reaction(s): vomiting Oxycodone-Acetaminophen Nausea/vomiting High 010 documented as of this encounter (statuses as of 06/25/2023) Medications Medication Sig Dispensed Refills Start Date [...] 1 Each 0 04/09/2022 Active oxygen IN GASIndications: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 respiratory failure with hypoxia (HCC),Centrilobular emphysema [...] 90 Tablet 2 11/13/2022 4 Active Umeclidinium [place] 62.5 MCG/ACT Inhalation Aerosol Powder Breath Activated (INCRUSE ellipta)Indications :COPD, group B, by GOLD 2017 classification ([facility]) INHALE ONE PUFF BY MOUTH [...] 12 Hour (Ranexa)Indications :Coronary artery disease of [place] artery of [place] heart with stable angina pectoris ([facility]) TAKE ONE TABLET BY MOUTH [...] goal of less than 8.0% ([facility]) Inject 15 Units under the skin in the morning and 15 Units at noon and 15 Units before bedtime. With meals. DISPENSE 5 vials. 0 05/20/2023 Active Memantine HCl 5 MG Oral Tablet (Namenda)Indication s:Dementia in Alzheimer's disease ([facility]) TAKE ONE TABLET BY MOUTH IN THE MORNING AND ONE TABLET BEFORE BEDTIME 60 Tablet 5 06/19/2023 4 Active documented as of this encounter (statuses as of 06/25/2023) Active Problems Problem Noted Date Diagnosed Date [...] artery disease of n ative artery of [place] heart with stable angina pectoris 01/30/2017 Overview: More specific. 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 Last Assessment & Plan: Cognition at baseline -not tolerating Aricept HTN (hypertension) 09/28/2012 Atherosclerosis of [place] artery of extremity Obstructive sleep apnea 01/13/2010 Overview: ICD-10 update of inactive term Last Assessment & Plan: Compliant with CPAP Old myocardial infarction 10/25/2009 Lumbar disc disorder with myelopathy 10/15/2009 Overview: Fentanyl patch caused severe nausea and vomiting Failed ultram Oxycodone caused nausea Preglaucoma 08/29/1998 History of TIA (transient ischemic attack) documented as of this encounter (statuses as of 06/25/2023) Resolved Problems Problem Noted Date Diagnosed Date [...] as of this encounter (statuses as of 06/25/2023) Immunizations Name Administration Dates Next Due COVID-19 [...] as of this encounter Progress Notes * Meghan, Layne A, agricultural real estate agent - 06/25/2023 8:17 AM EDT Contacts Type Contact Phone/Fax 06/25/2023 08:15 AM EDT Phone (Outgoing) Kaleb Oakley (Self) [phone] (H) Left Message Left detailed message asking to please call us back with any updates from [facility] per [facility] message below. Subjective Advised patient to contact Anticoagulation Clinic if any unusual bruising or bleeding, recent illness, changes in medication, or questions/concerns. PT/INR results, Coumadin dose instructions, and next PT/INR date communicated as noted by Pharmacist: Yes Layne Christianson CPhT 06/25/2023, 8:17 AM * Layne Fuller RPh - 06/25/2023 8:11 AM EDT Images from the original note were not included. Coumadin Clinic (region specific) Objective Current Warfarin Dose As of 06/25/2023 Warfarin maintenance plan: 2.5 mg (5 mg x 0.5) every day INR Result As of 06/25/2023 INR goal: 2.0-3.0 INR used for dosin.8 (06/24/2023) Assessment & Plan Warfarin Plan As of 06/25/2023 Full warfarin instructions: 06/25: 5 mg; Otherwise 5 mg every Mon; 2.5 mg all other days Next INR check: 07/12/2023 Any updates from [facility] regarding new machine status? Repeat PT/INR in 2.5 week(s) Weekly dose: increased Additional Dosing Information: Description GML Tech to contact patient with dose instructions as noted. Layne Fuller RPh 06/25/2023, 8:12 AM documented in this encounter Plan of Treatment Upcoming Encounters Date Type Department Care Team ([facility] Contact Info) Description 06/29/2023 12:30 PM EST Office Visit Interventional Pain Center, [facility] [address] [place] [address] Wendi Taveras PA-C [address] [place] [address] 07/13/2023 6:00 AM EST Anticoagulation Pharmacy Call Center WB [phone] [facility] [place] [address] Ccps, [facility] 58 60 [facility] [place] [address] 07/19/2023 4:00 PM EST [facility], [facility] [address] [place] [address] Danitza Salinas RN [address] [place] [address] 07/21/2023 10:00 AM EST Scheduled Telephone [facility], [facility] [address] [place] [address] Lucy Linn Nurse Triage [address] [place] [address] 07/22/2023 3:00 PM EST Office Visit Sleep Disorders Ctr [facility] [address] [place] [phone] Marnie Hartman DO [address] [place] [address] 03/28/2024 2:00 PM EDT Office Visit Rheumatology [place] [address] [facility] [place] [address] Yuid Horowitz CRNP [facility] [place] [address] Scheduled Procedures Name Priority Associated Diagnoses Date/Ti [...] Additional history exists CKD PHOS USE SMARTSET 01048 07/02/202306/23, 07/01/2021, 03/22/2020 Diabetic Eye Exam 07/20/2023 [...] Scan 03/11/2024 03/11/2023 CKD HGB USE SMARTSET 81976 03/29/202403/29, 03/29/2023, 12/01/2022, Additional history exists Albumin/Creatinine Ratio 05/31/2024 023, 10/20/2021, 08/11/2017, Additional history exists DTaP,Tdap,and Td Vaccines (3 - Td or Tdap) 01/11/2028 01/10/2018, 10/03/2012 Pneumococcal Vaccine: 65+ Years Completed 05/14/2015, 09/11/2009, 07/12/2003 Zoster Vaccines Completed 03/22/2020, 08/30/2019 COLONOSCOPY-EVERY 5 YRS AGES 18-100 Discontinued 11/19/2020, 11/19/2020, 05/16/2015, Additional history exists Alpha-1 Antitrypsin Completed 03/11/2022 VITAMIN D LEVEL ONCE IN A LIFETIME-USE SMARTSET# [id number] Completed 03/29/2023, 05/12/2014 Influenza Vaccine (FLU shot) [...] the patient have Health Care Power of Merchandise Handler? No Full Code 08/14/2010 2:57 PM 08/15/2010 2:24 PM Thi s order reflects the patients wishes and were consensually agreed upon. Care Teams Sheriffs Detective Relationship Specialty Start Date End Date Zachariah Duarte DO [address] [place] [address] PCP - General Family Medicine 12/20/20 documented as of this encounter
--- OUTSIDE RECORDS SUMMARY | 2023-08-28 08:35 | External Medical Summary | Summary of Care ---
Author Name Unknown Organization [facility] Address [address] [facility] [place] [address] Phone [phone] Care Team Providers Care Licensed And Certified Midwife Name Role Phone Zachariah Duarte DO Primary Care Provider Reason for Visit * Reason Onset Date Comments [facility]: Maintenance 06/15/2023 Encounter Details Date Type Department Care Team (Late st Contact Info) Description 06/15/2023 12:00 PM EDT Scheduled Telephone [facility], [facility] 132 [facility] [place] [address] [facility] Nurse Triage 132 [facility] [place] [address] Allergies Active Allergy Reactions Criticality Noted Date Comments Propoxyphene N-Acetaminophen 06/22/2012 N/V Fentanyl Nausea/vomiting 10/15/2009 Oxycodone High 01/21/2023 Other reaction(s): vomiting Oxycodone-Acetaminophen Nausea/vomiting High 010 documented as of this encounter (statuses as of 06/15/2023) Medications Medication Sig Dispensed Refills Start Date End Date Status SYRINGE (DISPOSABLE) 5 ML MISCIndications:DM type 2 causing neurological disease (HCC) use as directed for lantus 1 box 11 09/11/2009 Active ONETOUCH ULTRA 2 W/DEVICE KITIndications:DM type 2, goal A1C 7-8 use as directed 1 Kit 0 03/09/2012 Active ONETOUCH WILLY LANCELIZABETH MISCIndications:DM type 2, goal A1C 7-8 use [...] 1 Each 0 04/09/2022 Active oxygen IN GASIndications: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 respiratory failure with hypoxia (HCC),Centrilobular emphysema [...] 90 Tablet 2 11/13/2022 4 Active Umeclidinium [place] 62.5 MCG/ACT Inhalation Aerosol Powder Breath Activated (INCRUSE ellipta)Indications :COPD, group B, by GOLD 2017 classification ([facility]) INHALE ONE PUFF BY MOUTH EVERY [...] 12 Hour (Ranexa)Indications :Coronary artery disease of [place] artery of [place] heart with stable angina pectoris (HCC) TAKE [...] hemoglobin A1c goal of less than 8.0% ([facility]) Inject 15 Units under the skin in the morning and 15 Units at noon and 15 Units before bedtime. With meals. DISPENSE 5 vials. 0 05/20/2023 Active documented as of this encounter (statuses as of 06/15/2023) Active Problems Problem Noted Date Diagnosed Date [...] artery disease of n ative artery of [place] heart with stable angina pectoris 01/30/2017 Overview: More specific. 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 Last Assessment & Plan: Cognition at baseline -not tolerating Aricept HTN (hypertension) 09/28/2012 Atherosclerosis of [place] artery of extremity Obstructive sleep apnea 01/13/2010 Overview: ICD-10 update of inactive term Last Assessment & Plan: Compliant with CPAP Old myocardial infarction 10/25/2009 Lumbar disc disorder with myelopathy 10/15/2009 Overview: Fentanyl patch caused severe nausea and vomiting Failed ultram Oxycodone caused nausea Preglaucoma 08/29/1998 History of TIA (transient ischemic attack) documented as of this encounter (statuses as of 06/15/2023) Resolved Problems Problem Noted Date Diagnosed Date [...] as of this encounter (statuses as of 06/15/2023) Immunizations Name Administration Dates Next Due COVID-19 [...] encounter Miscellaneous Notes * Telephone Encounter - Margi Etienne RN - 06/15/2023 10:24 AM EDT [facility] 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 Problems/Symptoms: HPI: Kaleb reports he is doing fine, no falls for past couple of months Constitutional: no weight loss, + some weakness, and + some fatigue, has been traveling to [facility] see DIL who is very ill and him and are tired from the travel Resp: no cough, no sputum, no wheezing, and + dyspnea with exertion, wears O2 at times, uses Lumigen at HS and PRN Cardiac: no chest pain, no orthopnea, no dyspnea on exertion, no PND, no edema, no claudication, and no palpitations GI: no pain, no heartburn, no diarrhea, no constipation, no blood/melena, no nausea, no vomiting Musculoskeletal: no swelling and + back pain that is chronic Neuro: no memory loss, no falling, no numbness or tingling, and no vertigo Medication Reconciliation: Does patient take medications as ordered: Yes, sets up weekly pill packs, No refills needed Monthly follow up scheduled Margi Etienne RN 06/15/2023 documented in this encounter Plan of Treatment Upcoming Encounters Date Type Department Care Team (Late st Contact Info) Description 06/24/2023 8:10 AM EDT Laboratory Lab [place] [facility] [address] [place] [address] [facility] Draw [address] [place] [address] 06/25/2023 6:00 AM EDT Anticoagulation Pharmacy Call Center [phone] [place] [address] [facility] 58 60 [facility] [place] [address] 07/19/2023 4:00 PM EST Home Visit [facility], [facility] [address] [place] [address] Danitza Salinas, RN [address] [place] [address] 07/21/2023 10:00 AM EST Scheduled Telephone [facility], [facility] 132 [facility] [place] [address] Lucy Linn Nurse Triage 132 [facility] [place] [address] 07/22/2023 3:00 PM EST Office Visit Sleep Disorders Ctr [facility] 132 [facility] [place] [phone] Marnie Hartman DO [facility] [place] [address] 03/28/2024 2:00 PM EDT Office Visit Rheumatology [place] [phone] [facility] [place], [place] [address] Yudi Horowitz CRNP [facility] [place], [place] [address] Scheduled Procedures Name Priority Associated Diagnoses Date/Ti [...] Additional history exists CKD PHOS USE SMARTSET 17556 07/02/202306/23, 07/01/2021, 03/22/2020 DIABETES-EYE EXAM 07/20/2023 07/20/2022, [...] Scan 03/11/2024 03/11/2023 CKD HGB USE SMARTSET 98466 03/29/202403/29, 03/29/2023, 12/01/2022, Additional history exists Albumin/Creatinine Ratio 05/31/2024 023, 10/20/2021, 08/11/2017, Additional history exists DTaP,Tdap,and Td Vaccines (3 - Td or Tdap) 01/11/2028 01/10/2018, 10/03/2012 Pneumococcal Vaccine: 65+ Years Completed 05/14/2015, 09/11/2009, 07/12/2003 Zoster Vaccines Completed 03/22/2020, 08/30/2019 COLONOSCOPY-EVERY 5 YRS AGES 18-100 Discontinued 11/19/2020, 11/19/2020, 05/16/2015, Additional history exists Alpha-1 Antitrypsin Completed 03/11/2022 VITAMIN D LEVEL ONCE IN A LIFETIME-USE SMARTSET# [id number] Completed 03/29/2023, 05/12/2014 Influenza Vaccine (FLU shot) [...] the patient have Health Care Power of Sensitized Paper Tester? No Full Code 08/14/2010 2:57 PM 08/15/2010 2:24 PM Thi s order reflects the patients wishes and were consensually agreed upon. Care Teams Licensed And Certified Midwife Relationship Specialty Start Date End Date Zachariah Duarte DO [address] [place] [address] PCP - General Family Medicine 12/20/20 documented as of this encounter
--- OUTSIDE RECORDS SUMMARY | 2023-08-28 08:35 | External Medical Summary | Summary of Care ---
Author Name Unknown Organization [facility] Address [address] [place] [address] Phone [phone] Care Team Providers Care Media Relations Specialist Name Role Phone Zachariah Duarte DO Primary Care Provider [phone] Reason for Referral * Evaluate & Treat - Unlimited Visits (Within 10 days (routine)) - Authorized Specialty Diagnoses / Procedures Referred By Tito zaidi Referred To Contact Pain Management / Pain Medicine Diagnoses Spinal stenosis of lumbar region, unspecified whether neurogenic claudication present Valerie Tilley PA-C [address] [place] [address] Referral ID Status Reason Start Date Expiration Date Visits Requested Visits Authorized [id number] Authorized Specialty Services Required 3 999 999 Question Answer Referral Priority Within 10 days (routine) Where should this appointment be scheduled? [facility] Reason for referral? Interventional Pain Management - [...] pain if not done previously. Fax No. [facility] [phone] or contact electrician front [phone] Fax No. [facility] [phone] or contact electrician front [phone] 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 respiratory failure with hypoxia (HCC),Centrilobular emphysema [...] 90 Tablet 2 11/13/2022 4 Active Umeclidinium [place] 62.5 MCG/ACT Inhalation Aerosol Powder Breath Activated (INCRUSE ellipta)Indications :COPD, group B, by GOLD 2017 classification ([facility]) INHALE ONE PUFF BY MOUTH EVERY [...] 12 Hour (Ranexa)Indications :Coronary artery disease of [place] artery of [place] heart with stable angina pectoris ([facility]) TAKE ONE TABLET BY MOUTH TWICE [...] hemoglobin A1c goal of less than 8.0% ([facility]) Inject 15 Units under the skin [...] artery disease of n ative artery of [place] heart with stable angina pectoris 01/30/2017 Overview: More specific. 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 Last Assessment & Plan: Cognition at baseline -not tolerating Aricept HTN (hypertension) 09/28/2012 Atherosclerosis of [place] artery of extremity Obstructive sleep apnea 01/13/2010 [...] as of this encounter Miscellaneous Notes * Addendum Note - Valerie Tilley PA-C - 06/17/2023 2:05 PM EDTAddended by: VALERIE TILLEY on: 06/17/2023 02:05 PM Modules accepted: Orders documented in this encounter Plan of Treatment Upcoming Encounters Date Type Department Care Team (Late st Contact Info) Description 06/24/2023 8:10 AM EDT Laboratory Lab [place] Phlebot[facility] [address] [place] [address] [facility] Home Draw [address] [place] [address] 06/25/2023 6:00 AM EDT Anticoagulation Pharmacy Call Center [phone] [facility] [place] [address] [facility], [facility] 58 60 [facility] [place] [address] 07/19/2023 4:00 PM EST [facility] Visit [facility], [facility] [address] [place] [address] Danitza Salinas RN 132 [facility] [place] [address] 07/21/2023 10:00 AM EST Scheduled Telephone [facility], [facility] [address] [place] [address] [facility] Nurse Triage [address] [place] [address] 07/22/2023 3:00 PM EST Office Visit Sleep Disorders Ctr [facility] [address] [place] [phone] Marnie Hartman DO [address] [place] [address] 03/28/2024 2:00 PM EDT Office Visit Rheumatology [address] [place] [address] Yudi Horowitz CRNP [address] [place], [place] [address] Scheduled Procedures Name Priority Associated Diagnoses Date/Ti [...] Additional history exists CKD PHOS USE SMARTSET 84636 07/02/202306/23, 07/01/2021, 03/22/2020 DIABETES-EYE EXAM 07/20/2023 07/20/2022, [...] Scan 03/11/2024 03/11/2023 CKD HGB USE SMARTSET 76710 03/29/202403/29, 03/29/2023, 12/01/2022, Additional history exists Albumin/Creatinine Ratio 05/31/2024 023, 10/20/2021, 08/11/2017, Additional history exists DTaP,Tdap,and Td Vaccines (3 - Td or Tdap) 01/11/2028 01/10/2018, 10/03/2012 Pneumococcal Vaccine: 65+ Years Completed 05/14/2015, 09/11/2009, 07/12/2003 Zoster Vaccines Completed 03/22/2020, 08/30/2019 COLONOSCOPY-EVERY 5 YRS AGES 18-100 Discontinued 11/19/2020, 11/19/2020, 05/16/2015, Additional history exists Alpha-1 Antitrypsin Completed 03/11/2022 VITAMIN D LEVEL ONCE IN A LIFETIME-USE SMARTSET# [id number] Completed 03/29/2023, 05/12/2014 Influenza Vaccine (FLU shot) [...] the patient have Health Care Power of Order Picker/Assembler? No Full Code 08/14/2010 2:57 PM 08/15/2010 2:24 PM Thi s order reflects the patients wishes and were consensually agreed upon. Care Teams Media Relations Specialist Relationship Specialty Start Date End Date Zachariah Duarte DO [address] [place] [address] PCP - General Family Medicine 12/20/20 documented as of this encounter
--- OUTSIDE RECORDS SUMMARY | 2023-08-28 08:35 | External Medical Summary ---
Author Name Unknown Address Unknown Organization K01:LABORATORY [facility] [place] - [address] [place] [address] Laboratory Report Ordering Provider Test Date Status LUIS ALBERTO CASH 06/24/2023 10:44:00 Final Warfarin Therapy
INR: 2 .0-3.0 conventional anticoagulation
INR: 2.5- 3.5 high intensity anticoagulation Observation Date Value Abnormality Reference (Units ) Status PT 06/24/2023 10:44:00 20.7 Above high normal 11 .6-15.2 (seconds) Final INR 06/24/2023 10:44:00 1.8 Above high normal 0. 8-1.2 Final Performing Location [facility] [place] - [address] [place] [address]
--- OUTSIDE RECORDS SUMMARY | 2023-08-28 08:35 | External Medical Summary | Summary of Care ---
Author Name Unknown Organization [facility] Address [address] [place] [address] Phone [phone] Care Team Providers Care Car Retarder Operator Name Role Phone Kj Duarteinic Primary Care Provider [phone] Reason for Visit * Reason Onset Date Comments Information 06/17/2023 Encounter Details Date Type Department Care Team (Late st Contact Info) Description 06/17[facility]2023 [facility] [address] [place] [address] Valerie Tilley PA-C [address] [place] [address] Information Allergies Active Allergy Reactions Criticality Noted [...] 1 Each 0 04/09/2022 Active oxygen IN GASIndications:Face Boss bobbi respiratory failure with hypoxia (HCC),Centrilobular emphysema [...] 90 Tablet 2 11/13/2022 4 Active Umeclidinium [place] 62.5 MCG/ACT Inhalation Aerosol Powder Breath Activated [...] 12 Hour (Ranexa)Indications :Coronary artery disease of [place] artery of [place] heart with stable angina pectoris (HCC) TAKE [...] artery disease of n ative artery of [place] heart with stable angina pectoris 01/30/2017 Overview: More specific. 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 Last Assessment & Plan: Cognition at baseline -not tolerating Aricept HTN (hypertension) 09/28/2012 Atherosclerosis of [place] artery of extremity Obstructive sleep apnea 01/13/2010 [...] encounter Miscellaneous Notes * Telephone Encounter - Valerie Tilley PA-C - 06/17/2023 1:03 PM EDT Contacted patient. See telephonic appointment documentation. * Telephone Encounter - VENICE El - 06/17/2023 12:10 PM EDT Pt calling requesting a return call. documented in this encounter Plan of Treatment Upcoming Encounters Date Type Department Care Team (Late st Contact Info) Description 06/24/2023 8:10 AM EDT Laboratory Lab Mobile Phlebotomy [facility] [address] [place] [address] [facility] Mobile Home Draw [address] [place] [address] 06/25/2023 6:00 AM EDT Anticoagulation Pharmacy Call Center [address] [place] [address] [facility] [address] [place] [address] 07/19/2023 4:00 PM EST [facility] [address] [place] [address] Danitza Salinas, RN [address] [place] [address] 07/21/2023 10:00 AM EST Scheduled Telephone [facility], [facility] [address] [place] [address] [facility] Nurse Triage [address] [place] [address] 07/22/2023 3:00 PM EST [facility] [address] [place] [address] Marnie Hartman, [address] [place] [address] 03/28/2024 2:00 PM EDT Office Visit Rheumatology [facility] [address] [place] [address] Yudi Horowitz CRNP [address] [place] [address] Scheduled Procedures Name Priority Associated Diagnoses Date/Ti [...] Additional history exists CKD PHOS USE SMARTSET 55812 07/02/202306/23, 07/01/2021, 03/22/2020 DIABETES-EYE EXAM 07/20/2023 07/20/2022, [...] Scan 03/11/2024 03/11/2023 CKD HGB USE SMARTSET 40302 03/29/202403/29, 03/29/2023, 12/01/2022, Additional history exists Albumin/Creatinine Ratio 05/31/2024 023, 10/20/2021, 08/11/2017, Additional history exists DTaP,Tdap,and Td Vaccines (3 - Td or Tdap) 01/11/2028 01/10/2018, 10/03/2012 Pneumococcal Vaccine: 65+ Years Completed 05/14/2015, 09/11/2009, 07/12/2003 Zoster Vaccines Completed 03/22/2020, 08/30/2019 COLONOSCOPY-EVERY 5 YRS AGES 18-100 Discontinued 11/19/2020, 11/19/2020, 05/16/2015, Additional history exists Alpha-1 Antitrypsin Completed 03/11/2022 VITAMIN D LEVEL ONCE IN A LIFETIME-USE SMARTSET# [id number] Completed 03/29/2023, 05/12/2014 Influenza Vaccine (FLU shot) [...] the patient have Health Care Power of Energy Audit Advisor? No Full Code 08/14/2010 2:57 PM 08/15/2010 2:24 PM Thi s order reflects the patients wishes and were consensually agreed upon. Care Teams Car Retarder Operator Relationship Specialty Start Date End Date Zachariah Duarte DO [address] [facility] [place] [address] PCP - General Family Medicine 12/20/20 documented as of this encounter
--- OUTSIDE RECORDS SUMMARY | 2023-08-28 08:35 | External Medical Summary | Summary of Care ---
Author Name Unknown Organization [facility] Address [address] [facility] [place] [address] Phone [phone] Care Team Providers Care Electronics Engineering Professor Name Role Phone Kj Duarteinic Primary Care Provider [phone] Reason for Visit * Reason Comments Back Pain * Evaluate & Treat - Unlimited Visits (Within 10 days (routine)) - Authorized Specialty Diagnoses / Procedures Referred By Tito zaidi Referred To Contact Pain Management / Pain Medicine Diagnoses Spinal stenosis of lumbar region, unspecified whether neurogenic claudication present Valerie Tilley PA-C [address] [place] [address] Referral ID Status Reason Start Date Expiration Date Visits Requested Visits Authorized [id number] Authorized Specialty Services Required [phone] Encounter Details Date Type Department Care Team (Latest Contact Info) Description 06/29/2023 12:30 PM EST Office Visit [facility], [facility] [address] [place] [address] Wendi Taveras PA-C [address] [place] [address] Lumbar radicular pain*; Hx of decompressive lumbar [...] for lantus 1 box 11 09/11/2009 Active [employer] ULTRA 2 W/DEVICE KITIndications:DM type 2, goal A1C 7-8 use as directed 1 Kit 0 03/09/2012 Active OptimusTOUCH DELICA LANCETS MISCIndications:DM type 2, goal A1C 7-8 use up to 4 times daily 100 Each 11 03/09/2012 Active OptimusTOUCH ULTRA BLUE STRPIndications:DM type 2, goal A1C [...] 1 Each 0 04/09/2022 Active oxygen IN GASIndications:Black Leather Trimmer bobbi respiratory failure with hypoxia (HCC),Centrilobular [...] 90 Tablet 2 11/13/2022 4 Active Umeclidinium [place] 62.5 MCG/ACT Inhalation Aerosol Powder Breath Activated [...] 12 Hour (Ranexa)Indications :Coronary artery disease of [place] artery of [place] heart with stable angina pectoris (HCC) TAKE [...] artery disease of n ative artery of [place] heart with stable angina pectoris 01/30/2017 Overview: More specific. 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 Last Assessment & Plan: Cognition at baseline -not tolerating Aricept HTN (hypertension) 09/28/2012 Atherosclerosis of [place] artery of extremity Obstructive sleep apnea 01/13/2010 [...] Name: Kaleb Oakley Location: [facility], [facility] REFERRING PHYSICIAN: Valerie Tilley PA-C Thank [...] falls including injury Spring 2022, evaluated at [facility] ED mild compression fracture T12 without retropulsion [...] central stenosis. Personally reviewed L spine xray 9/26/23 - moderate osteophyte formation lower lumbar region [...] History: Diagnosis Date AAA (abdominal aortic aneurysm) ([facility]) 04/04/2014 ASCVD (arteriosclerotic cardiovascular disease) Benign neoplasm of colon 03/17/2010 diverticulosis, polyps x2 path shows adenomatous repeat in 5 years Cardiac catheterization as the cause of abnormal reaction of patient, or of later complication, without mention of misadventure at time of procedure Cardiac Cath COPD (chronic obstructive pulmonary disease) ([facility]) GERD (gastroesophageal reflux disease) Lung nodule 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 Royal AORTOGRAM ABDOMINAL-TECH ONLY 08/14/2010 IMAGING S&I ABDOMINAL AO performed by MICHAEL ROYAL [place] [facility] [place] ANGIOGRAPHY W/LEFT HEART CATH Left 01/29/2017 BYPASS GRAFT ANGIOGRAPHY W/LEFT HEART CATH performed by Tiffanie Contreras MD at [facility]ARDIAC LAB[facility] [place] GRAFT ANGIOGRAPHY W/LEFT HEART CATH Left 03/02/2019 BYPASS GRAFT ANGIOGRAPHY W/LEFT HEART CATH performed by Marco Antonio Cerda MD at [facility] COLONOSCOPY W/ BIOPSY (RECTUM) 03/07/2010 done diverticulosis, polyps x2 path shows adenomatous repeat in 5 years COLONOSCOPY, DIAGNOSTIC (RECTUM) 11/19/2020 tubular adenoma polyps, repeat 2 yrs health permiting/ COLONOSCOPY FLEXIBLE PROXIMAL DIAGNOSTIC performed by Silvia Howard MD at ENDOSCOPY [facility] COLONOSCOPY, GI REFERRAL OP 10/04/2003 normal CORONARY ARTERY BYPASS, SINGLE 11/21/1997 CABG(Peripheral Bypass) ?Triple CORONARY ARTERY DILATION, BALLOON 08/23/1988 Angioplasty (PALMAZ-LIDIA) EGD, FLEXIBLE, DIAGNOSTIC N/A 08/10/2022 gastritis/single bleeding angioectasia in stomach, treated with APC/biopsies normal/ESOPHAGOGASTRODUODENOSCOPY (EGD), FLEXIBLE, TRANSORAL, DIAGNOSTIC performed by Nelly Perez DO at OR [facility] INJECTION LUMBAR/SACRAL 08/23/2011 IR ARTERIOGRAM EXTREMITY BILATERAL 08/14/2010 ANGIOGRAPHY EXTREMITY BILATERAL performed by MICHAEL ROYAL [place] [facility] LAMINECT[place]Y/LAMINOTOMY, LUMBAR, GUIDE 09/08/2012 L4-5, L5-S1 laminectomy MISCELLANEOUS ORDER ([facility] ONLY) Angioplasty in leg, right REMOVE CATARACT, INSERT LENS PROSTH 10/22/2011 rt eye REMOVE CATARACT, INSERT LENS PROSTH 10/22/2011 left eye FAMILY HISTORY: Family History Problem Relation Age of Onset Diabetes Mother Stroke Mother in her 70s Diabetes Father Heart attack Father Fatal MA age 80 Heart attack Sister Fatal MA age 55 Heart disease Sister CABG Breast Cancer Sister Diabetes Sister Heart failure Sister in her 60s Diabetes Sister Diabetes Brother COPD Brother Heart disease Brother age 77 Cancer Brother Pancreatic, in his 50s Heart Disorder Sister CABG and MA age 55 Other ( as a baby) [...] as directed for lantus 1 box 11 ONETOUCH ULTRA 2 W/DEVICE KIT use as directed 1 Kit 0 ONETOUCH DELICA LANCETS MISC use up to 4 times daily 100 Each 11 ONETOUCH ULTRA BLUE STRP TEST BLOOD SUGAR [...] NEEDED FOR SLEEP 90 Tablet 2 Umeclidinium [place] 62.5 MCG/ACT Inhalation Aerosol Powder Breath Activated [...] one injection attempted prior to surgery in 2013. Wendi Taveras PA-C 06/29/2023 documented in this encounter Nursing Notes * Shanta Torres LPN - 06/29/2023 12:31 PM EST Patient presents with low back pain since 2003, no known injury Hx of injection in 2011, surgery in 2012 No relief with PT in the last 2yrs MRI in chart Worse with walking, 8/10 at the worst documented in this encounter Plan of Treatment Upcoming Encounters Date Type Department Care Team (Late st Contact Info) Description 07/12/2023 8:40 AM EST Laboratory Lab Mobile Phlebotomy [facility] [address] [place] [address] [facility], [facility] Mobile Home Draw [address] [place] [address] 07/13/2023 6:00 AM EST Anticoagulation Pharmacy Call Center [address] [place] [address] [facility], [facility] [address] [facility] [address] 07/19/2023 4:00 PM EST [facility] [place], [facility] [address] [place] [address] Danitza Salinas RN 132 [facility] [place] [address] 07/21/2023 10:00 AM EST Scheduled Telephone [facility] [place], [facility] [address] [place] [address] Kaveh [facility] Nurse Triage [address] [facility] [place] [address] 07/22/2023 3:00 PM EST Office Visit Sleep Disorders Ctr [facility] [address] [place] [phone] Marnie Hartman DO [address] [place] [address] 03/28/2024 2:00 PM EDT Office Visit Rheumatology [place] [address] [facility] [place] [address] Yudi Horowitz CRNP [address] [place] [address] [place] [address] Scheduled Procedures Name Priority Associated Diagnoses Date/Ti [...] Additional history exists CKD PHOS USE SMARTSET 48591 07/02/202306/23, 07/01/2021, 03/22/2020 Diabetic Eye Exam 07/20/2023 07/20/2022, , 08/26/2020, Additional history exists O2 ASSESSMENT COMPLETED IN PAST YEAR FOR COPD 08/10/2023 08/10/2022 DISCUSS TOBACCO CESSATION (REFER TO SMARTSET #9928) 08/26/2023 08/26/2022, 05/27/2022, 02/11/2022, Additional history exists HbA1c 10/15/2023 04/14/2023, 06/23, 02/06/2022, Additional history exists Depression Screening 11/21/2023 11/20/2022 GFR 11/26/2023 05/27/2023, 03/24, 03/29/2023, Additional history exists DXA Scan 03/11/2024 03/11/2023 CKD HGB USE SMARTSET 66406 03/29/202403/29, 03/29/2023, 12/01/2022, Additional history exists Albumin/Creatinine Ratio 05/31/2024 023, 10/20/2021, 08/11/2017, Additional history exists DTaP,Tdap,and Td Vaccines (3 - Td or Tdap) 01/11/2028 01/10/2018, 10/03/2012 Pneumococcal Vaccine: 65+ Years Completed 05/14/2015, 09/11/2009, 07/12/2003 Zoster Vaccines Completed 03/22/2020, 08/30/2019 COLONOSCOPY-EVERY 5 YRS AGES 18-100 Discontinued 11/19/2020, 11/19/2020, 05/16/2015, Additional history exists Alpha-1 Antitrypsin Completed 03/11/2022 VITAMIN D LEVEL ONCE IN A LIFETIME-USE SMARTSET# [id number] Completed 03/29/2023, 05/12/2014 Influenza Vaccine (FLU shot) [...] the patient have Health Care Power of Cardiograph Operator? No Full Code 08/14/2010 2:57 PM 08/15/2010 2:24 PM Thi s order reflects the patients wishes and were consensually agreed upon. Care Teams Electronics Engineering Professor Relationship Specialty Start Date End Date Zachariah Duarte DO PCP - General Family Medicine 12/20/20 documented as of this encounter
--- OUTSIDE RECORDS SUMMARY | 2023-08-28 08:35 | External Medical Summary | Summary of Care ---
Author Name Unknown Organization [facility] Address [address] [facility] [place] [address] Phone [phone] Care Team Providers Care Production Proofreader Name Role Phone Zachariah Duarte DO Primary Care Provider Reason for Visit * Reason Comments Medication Refill Encounter Details Date Type Department Care Team (Late st Contact Info) Description 06/19/2023 Refill Family Practice [facility] 132 [facility] [place] [address] Zachariah Duarte DO [address] [place] [id number] 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) Allergies Active Allergy Reactions Criticality Noted Date Comments Propoxyphene N-Acetaminophen 06/22/2012 N/V Fentanyl Nausea/vomiting 10/15/2009 Oxycodone High 01/21/2023 Other reaction(s): vomiting Oxycodone-Acetaminophen Nausea/vomiting High 010 documented as of this encounter (statuses as of 06/19/2023) Medications Medication Sig Dispensed Refills Start Date [...] 1 Each 0 2 Active oxygen IN GASIndications: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 bobbi respiratory failure with hypoxia (HCC),Centrilobular [...] Tablet 2 3 11/13/19 24 Active Umeclidinium [place] 62.5 MCG/ACT Inhalation Aerosol Powder Breath Activated (INCRUSE ellipta)Indications :COPD, group B, by GOLD 2017 classification ([facility]) INHALE ONE PUFF BY MOUTH EVERY DAY [...] 110 Tablet 3 3 10/23/19 24 Active Pantoprazole Sodium 40 MG Oral Tablet Delayed Release (Protonix)Indicatio ns:Gastroesophageal reflux disease TAKE ONE TABLET BY MOUTH EVERY DAY 90 Tablet 2 3 10/06/19 24 Active Atorvastatin Calcium 80 MG Oral Tablet (Lipitor)Indication s:Dyslipidemia, goal LDL below 100 TAKE ONE TABLET BY MOUTH EVERY DAY 90 Tablet 0 3 10/06/19 24 Active Ranolazine ER 500 MG Oral Tablet Extended Release 12 Hour (Ranexa)Indications :Coronary artery disease of [place] artery of [place] heart with stable angina pectoris (HCC) TAKE [...] less than 8.0% ([facility]) Inject 15 Units under the skin in the morning and 15 Units at noon and 15 Units before bedtime. With meals. DISPENSE 5 vials. 0 3 Active Memantine HCl 5 MG Oral Tablet (Namenda)Indication s:Dementia in Alzheimer's disease ([facility]) TAKE ONE TABLET BY MOUTH IN THE MORNING AND ONE TABLET BEFORE BEDTIME 60 Tablet 5 3 06/18/20 24 Active Memantine HCl 5 MG Oral Tablet (Namenda)Indication s:Dementia in Alzheimer's disease ([facility]) TAKE ONE TABLET BY MOUTH IN THE MORNING AND ONE TABLET BEFORE BEDTIME 60 Tablet 5 3 06/19/20 23 Discontinu ed(Refill) documented as of this encounter (statuses as of 06/19/2023) Active Problems Problem Noted Date Diagnosed Date [...] artery disease of n ative artery of [place] heart with stable angina pectoris 01/30/2017 Overview: More specific. 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 Last Assessment & Plan: Cognition at baseline -not tolerating Aricept HTN (hypertension) 09/28/2012 Atherosclerosis of [place] artery of extremity Obstructive sleep apnea 01/13/2010 Overview: ICD-10 update of inactive term Last Assessment & Plan: Compliant with CPAP Old myocardial infarction 10/25/2009 Lumbar disc disorder with myelopathy 10/15/2009 Overview: Fentanyl patch caused severe nausea and vomiting Failed ultram Oxycodone caused nausea Preglaucoma 08/29/1998 History of TIA (transient ischemic attack) documented as of this encounter (statuses as of 06/19/2023) Resolved Problems Problem Noted Date Diagnosed Date [...] as of this encounter (statuses as of 06/19/2023) Immunizations Name Administration Dates Next Due COVID-19 [...] encounter Miscellaneous Notes * Telephone Encounter - Zachariah Duarte DO - 06/19/2023 4:14 PM EDTSigned Prescriptions: Disp Refills Memantine HCl 5 MG Oral Tablet (Namenda) 60 Tab*5 Sig: TAKE ONE TABLET BY MOUTH IN THE MORNING AND ONE TABLET BEFORE BEDTIME Authorizing Provider: ZACHARIAH DUARTE * Telephone Encounter - Guy Pisano [facility] - 06/19/2023 1:32 PM EDT Pending Prescriptions: Disp Refills Memantine HCl 5 MG Oral Tablet (Namenda) 60 Tab*5 Sig: TAKE ONE TABLET BY MOUTH IN THE MORNING AND ONE TABLET BEFORE BEDTIME * Telephone Encounter - Guy Pisano [facility] - 06/19/2023 1:32 PM EDT Telepharmacy not authorized to fill for this medication per protocol. Please approve if appropriate. Pending Prescriptions: Disp Refills Memantine HCl 5 MG Oral Tablet (Namenda) 60 Tab*5 Sig: TAKE ONE TABLET BY MOUTH IN THE MORNING AND ONE TABLET BEFORE BEDTIME 05/18/2023 (in office), Visit date not found (telemedicine) Visit date not found If no future appointments scheduled, and last appointment is greater than a year ago, please schedule patient for a follow-up appointment Last date the medication was ordered: Pharmacy: [facility] Is this request for a controlled substance? No Urine Drug Screen:No results found. However, due [...] 8:10 AM EDT Laboratory Lab Mobile Phlebotomy [facility] [address] [place] [address] [facility], [facility] Mobile Home Draw [address] [place] [facility] [address] 06/25/2023 6:00 AM EDT Anticoagulation Pharmacy Call Center [address] [facility] [place] [address] [facility], [facility] [address] [facility] [place] [address] 07/19/2023 4:00 PM EST [facility], [facility] [address] [place] [address] Danitza Salinas RN [address] [place] [address] 07/21/2023 10:00 AM EST Scheduled Telephone [facility], [facility] [address] [place] [address] Kaveh [facility] Nurse Triage 132 [facility] [place] [address] 07/22/2023 3:00 PM EST Office Visit Sleep Disorders Ctr [facility] [address] [place] [phone] Marnie Hartman DO [address] [place] [address] 03/28/2024 2:00 PM EDT Office Visit Rheumatology [place] [phone] [employer] [place] [address] Yudi Horowitz CRNP [facility] [address] [place] [address] Scheduled Procedures Name Priority Associated Diagnoses Date/Ti [...] Additional history exists CKD PHOS USE SMARTSET 92356 07/02/202306/23, 07/01/2021, 03/22/2020 DIABETES-EYE EXAM 07/20/2023 07/20/2022, [...] Scan 03/11/2024 03/11/2023 CKD HGB USE SMARTSET 38813 03/29/202403/29, 03/29/2023, 12/01/2022, Additional history exists Albumin/Creatinine Ratio 05/31/2024 023, 10/20/2021, 08/11/2017, Additional history exists DTaP,Tdap,and Td Vaccines (3 - Td or Tdap) 01/11/2028 01/10/2018, 10/03/2012 Pneumococcal Vaccine: 65+ Years Completed 05/14/2015, 09/11/2009, 07/12/2003 Zoster Vaccines Completed 03/22/2020, 08/30/2019 COLONOSCOPY-EVERY 5 YRS AGES 18-100 Discontinued 11/19/2020, 11/19/2020, 05/16/2015, Additional history exists Alpha-1 Antitrypsin Completed 03/11/2022 VITAMIN D LEVEL ONCE IN A LIFETIME-USE SMARTSET# [id number] Completed 03/29/2023, 05/12/2014 Influenza Vaccine (FLU shot) Completed 05/18/2023, 05/27/2022, 06/23/2021, Additional history exists GARDASIL-HPV IMMUNIZATION SERIES Aged Out No longer eligible based on patient's age to complete this topic MENINGOCOCCAL (MENACTRA/MENVEO) Aged Out No longer eligible based on patient's age to complete this topic documented as of this encounter Medical Devices Not on filedocumented as of this encounter Visit Diagnoses Diagnosis 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) Alzheimer's disease documented in this encounter Advance Directives Latest [...] the patient have Health Care Power of Clerical Receptionist? No Full Code 08/14/2010 2:57 PM 08/15/2010 2:24 PM Thi s order reflects the patients wishes and were consensually agreed upon. Care Teams Production Proofreader Relationship Specialty Start Date End Date Zachariah Duarte DO [address] [place] [address] PCP - General Family Medicine 12/20/20 documented as of this encounter
--- OUTSIDE RECORDS SUMMARY | 2023-08-28 08:36 | External Medical Summary | Summary of Care ---
Author Name Unknown Organization [facility] Address [address] [facility] [place] [address] Phone [phone] Care Team Providers Care Director Channel Name Role Phone Zachariah Duarte DO Primary Care Provider Reason for Visit * Reason Onset Date Comments [facility]: Maintenance 06/10/2023 Encounter Details Date Type Department Care Team Description 06/10/2023 Telephone [facility] [address] [facility] [place] [address] [facility], Nurse [facility] [address] [facility] [place] [address] [facility]: Maintenance Allergies Active Allergy Reactions Severity Noted Date [...] Each 0 04/09/2022 Active oxygen IN GASIndications: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 Abap 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 bobbi respiratory failure with hypoxia (HCC),Centrilobular emphysema [...] 90 Tablet 2 11/13/2022 4 Active Umeclidinium [place] 62.5 MCG/ACT Inhalation Aerosol Powder Breath Activated (INCRUSE ellipta)Indications :COPD, group B, by GOLD 2017 classification ([facility]) INHALE ONE PUFF BY MOUTH [...] 12 Hour (Ranexa)Indications :Coronary artery disease of [place] artery of [place] heart with stable angina pectoris (HCC) TAKE [...] hemoglobin A1c goal of less than 8.0% ([facility]) Inject 15 Units under the [...] artery disease of n ative artery of [place] heart with stable angina pectoris 01/30/2017 Overview: More specific. 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 17 Last Assessment & Plan: Cognition at baseline -not tolerating Aricept HTN (hypertension) 09/28/2012 Atherosclerosis of [place] artery of extr emity 06/22/2012 Obstructive sleep [...] encounter Miscellaneous Notes * Telephone Encounter - Rubi Escoto RN - 06/10/2023 2:12 PM EDT Call from patient to speak with Geetha Advised she is on the other line with a patient. Kaleb not able to hold on phone, requested a callback tomorrow at 1pm RN notified of same Romy Escoto, RN, BSN [facility] Intake Triage Coordinator [phone] documented in this encounter Plan of Treatment Upcoming Encounters Date Type Specialty Care Team Description 06/11/2023 Scheduled Telephone [facility] Nurse Triage [address] [place] [address] 06/24/2023 Laboratory Laboratory Processing [facility] [place] Draw [address] [place] [address] 06/25/2023 Anticoagulation Pharmacy [facility] [address] [place] [address] 07/22/2023 Office Visit Sleep Disorders Marnie Hartman DO [address] [place] [address] 03/28/2024 Office Visit Rheumatology Yudi Horowitz CRNP [address] [place] [address] Scheduled Procedures Name Priority Associated Diagnoses Date/Ti me COLONOSCOPY FLEXIBLE PROXIMAL DIAGNOSTIC Recall History of colon polyps Health Maintenance Due Date Last Done Comments COLONOSCOPY-EVERY 2 YRS AGES 18-100 11/19/2022 11/19/2020, 11/19/2020, 05/16/2015, Additional history exists Diabetic Foot Exam 02/06/2023 02/06/2022, 0 08/30/2019, 08/18/2018, Additional history exists COVID-19 Vaccine ( season) 2023 12/23/2021, 07/24/2021, 07/24/2021, Additional history exists CKD PHOS USE SMARTSET 95291 07/02/202306/23, 07/01/2021, 03/22/2020 DIABETES-EYE EXAM 07/20/2023 07/20/2022, [...] Scan 03/11/2024 03/11/2023 CKD HGB USE SMARTSET 20697 03/29/202403/29, 03/29/2023, 12/01/2022, Additional history exists Albumin/Creatinine Ratio 05/31/2024 023, 10/20/2021, 08/11/2017, Additional history exists DTaP,Tdap,and Td Vaccines (3 - Td or Tdap) 01/11/2028 01/10/2018, 10/03/2012 Pneumococcal Vaccine: 65+ Years Completed 05/14/2015, 09/11/2009, 07/12/2003 Zoster Vaccines Completed 03/22/2020, 08/30/2019 COLONOSCOPY-EVERY 5 YRS AGES 18-100 Discontinued 11/19/2020, 11/19/2020, 05/16/2015, Additional history exists Alpha-1 Antitrypsin Completed 03/11/2022 VITAMIN D LEVEL ONCE IN A LIFETIME-USE SMARTSET# [id number] Completed 03/29/2023, 05/12/2014 Influenza Vaccine (FLU shot) [...] the patient have Health Care Power of Monomer Purification Operator? No Full Code 08/14/2010 2:57 PM 08/15/2010 2:24 PM Thi s order reflects the patients wishes and were consensually agreed upon. Care Teams Director Channel Relationship Specialty Start Date End Date Zachariah Duarte DO [address] [place] [address] PCP - General Family Medicine 12/20/20 documented as of this encounter
--- OUTSIDE RECORDS SUMMARY | 2023-08-28 08:36 | External Medical Summary ---
Author Name Unknown Address Unknown Organization [id number][facility] [place] [address] [place] [address] Laboratory Report Ordering Provider Test Date Status GUSTABO GARCIA 05/31/2023 15:46:53 Final Normal: <30 mg/g creatinine< br/>High: 30-300 mg/g creatinine
Very High: >300 mg/g creatinine
Nephrotic: >2200 mg/g creatinine Observation Date Value Abnormality Reference (Units ) Status Albumin, Urine 05/31/2023 15:46:53 1.74 (mg/dL) Final Creatinine, Urine 05/31/2023 15:46:53 75 (mg/dL) Final Albumin/Creatinine [Mass Ratio] in Urine 05/31/2023 15:46:53 23 <30 (mg/g Creat) Final Performing Location [facility] [place] [address] [place] [address]
--- OUTSIDE RECORDS SUMMARY | 2023-08-28 08:36 | External Medical Summary | Summary of Care ---
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 / Neurological Surgery Diagnoses Spinal stenosis of lumbar region with neurogenic claudication Zachariah Duarte DO [address] [place] [id number] Referral ID Status Reason Start Date Expiration Date Visits Requested Visits Authorized [id number] Authorized Specialty Services Required 05/18/[phone] Question Answer Referral Priority Within 10 days (routine) Select spine region: Back - Thoracic/Lumbar Do you have any recent complete loss of bladder or bowel function? No Reason for Visit * Reason Onset Date Comments Follow Up Pt here for a 3m f/u Medication Administration 05/18/2023 Flu an d/or Pneumo Inj Encounter Details Date Type Department Care Team Description 05/18/2023 Office Visit Family [facility] [address] [id number] Zachariah Duarte DO [address] [place] [id number] Hypertensive heart and kidney disease with chronic diastolic congestive heart failure and stage 3a chronic kidney disease ([facility])*; Type 2 diabetes mellitus with stage 3a chronic kidney disease, with long-term current use of insulin ([facility]); COPD, group B, by GOLD 2017 classification ([facility]); Chronic diastolic congestive heart failure ([facility]); Chronic respiratory failure with hypoxia ([facility]); Impacted cerumen of left ear; Need for prophylactic vaccination and inoculation against influenza; Risk and functional assessment; Spinal stenosis of lumbar region with neurogenic claudication Allergies Active Allergy Reactions Severity Noted Date Comments Propoxyphene N-Acetaminophen 06/22/2012 N/V Fentanyl Nausea/vomiting 10/15/2009 Oxycodone High 01/21/2023 Other reaction(s): vomiting Oxycodone-Acetaminophen Nausea/vomiting High 010 documented as of this encounter (statuses as of 05/27/2023) Medications Medication Sig Dispensed Refills Start Date End Date Status SYRINGE (DISPOSABLE) 5 ML MISCIndications:DM type 2 causing neurological disease ([facility]) use as directed for lantus 1 box 11 09/11/19 10 Active ONETOUCH ULTRA 2 W/DEVICE KITIndications:DM type 2, goal A1C 7-8 use as directed 1 Kit 0 03/09/20 12 Active ONETOUCH DELICA LANCETS MISCIndications:DM type 2, goal A1C 7-8 use up to 4 times daily 100 Each 11 03/09/20 12 Active ONETOUCH ULTRA BLUE STRPIndications:DM type 2, goal A1C 7-8 TEST BLOOD SUGAR 7 TIMES A DAY 200 Strip 5 01/13/20 14 Active Magnesium Oxide 400 MG TabletIndications: Hypomagnesemia TAKE 1 TABLET BY MOUTH ONCE A DAY 30 Tab 5 09/29/19 18 Active Insulin Syringe-Needle U-100 (BD INSULIN SYRINGE ULTRAFINE) 31G X 5/16" 0.5 ML MISCIndications:Ty pe 1 diabetes mellitus with hemoglobin A1c goal of less than 8.0% ([facility]) Use to inject insulin 5 times daily 200 Each 11 06/23/20 18 Active Misc Natural Products (T-RELIEF CBD+13) SUBL Place 1 Each under the tongue at bedtime. 0 Active insulin isophane human (NOVOLIN N RELION) 100 UNIT/ML injectionIndicatio ns:Type 1 diabetes mellitus with hemoglobin A1c goal of less than 8.0% ([facility]) INJECT 36 UNITS SUBCUTANEOUSLY AT NOON AND INJECT 25 UNITS AT MIDNIGHT DAILY 30 mL 0 01/17/20 20 Active CPAP every night at bedtime . 0 Active oxygen IN GASIndications:Ashwin trilobular emphysema (HCC),Chronic respiratory failure with hypoxia (HCC) Use 2 LPM with exertion 1 Each 0 11/27/19 22 Active Additional Information Patient taking differently: 3 L/min(Oxygen) HS, Use 3 LPM with exertion and at night, Reported on 10/26/2022 Nebulizer DeviceIndications: Chronic respiratory failure with hypoxia (HCC),Centrilobula r emphysema (HCC) Use with nebulized medications 1 Each 0 04/09/20 22 Active oxygen IN GASIndications:Chr onic respiratory failure with hypoxia (HCC),Centrilobula r emphysema (HCC) 2 LPM by inogen or portable oxygen concentrator with exertion. Use 3 LPM by standing concentrator with sleep 1 Each 0 05/19/20 22 Active Docusate Sodium 100 MG Oral Tablet Take 1 Tablet by mouth in the morning and 1 Tablet before bedtime. 0 Active Tylenol 325 MG Oral Capsule (Acetaminophen) Take 650 mg by mouth in the morning and 650 mg before bedtime. 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) TAKE ONE TABLET BY MOUTH IN THE MORNING AND ONE TABLET BEFORE BEDTIME 60 Tablet 5 12/30/19 23 024 Active traZODone HCl 100 MG Oral Tablet (Desyrel) TAKE ONE TABLET BY MOUTH AT BEDTIME NEEDED FOR SLEEP 90 Tablet 2 11/14/19 23 024 Active Umeclidinium [place] 62.5 MCG/ACT Inhalation Aerosol Powder Breath Activated (INCRUSE ellipta)Indication s:COPD, group B, by GOLD 2017 classification ([facility]) INHALE ONE PUFF BY MOUTH EVERY DAY IN THE MORNING 90 Each 3 11/06/19 23 024 Active Warfarin Sodium 5 MG Oral Tablet (Coumadin) TAKE ONE TABLET BY MOUTH AT BEDTIME 90 Tablet 3 11/03/19 23 024 Active Furosemide 20 MG Oral Tablet (Lasix) TAKE ONE TABLET BY MOUTH EVERY MORNING PLUS ADDITIONAL ONE TABLET TWO DAYS PER WEEK 110 Tablet 3 10/24/19 23 024 Active Pantoprazole Sodium 40 MG Oral Tablet Delayed Release (Protonix)Indicati ons:Gastroesophage al reflux disease TAKE ONE TABLET BY MOUTH EVERY DAY 90 Tablet 2 10/06/19 23 024 Active Atorvastatin Calcium 80 MG Oral Tablet (Lipitor)Indicatio ns:Dyslipidemia, goal LDL below 100 TAKE ONE TABLET BY MOUTH EVERY DAY 90 Tablet 0 10/06/19 23 024 Active Ranolazine ER 500 MG Oral Tablet Extended Release 12 Hour (Ranexa)Indication s:Coronary artery disease of [place] artery of [place] heart with stable angina pectoris (HCC) TAKE ONE TABLET BY MOUTH TWICE A DAY -- IN THE MORNING AND BEFORE BEDTIME 180 Tablet 3 09/07/19 23 024 Active Isosorbide Mononitrate ER 60 MG Oral Tablet Extended Release 24 Hour (Imdur)Indications :HTN, goal below 130/80,Old myocardial infarction TAKE ONE TABLET BY MOUTH TWICE A DAY 200 Tablet 3 03/02/20 23 Active Vitamin D 25 MCG (1000 UT) Oral Tablet Take 1 Tablet by mouth every evening. 0 Active Vitamin E 1000 UNIT Oral Capsule Take 1 Capsule by mouth in the morning. 0 Active insulin REGULAR human (NOVOLIN R RELION) 100 UNIT/ML injectionIndicatio ns:Type 1 diabetes mellitus with hemoglobin A1c goal of less than 8.0% (HCC) Inject 12 units with breakfast, 10 units with lunch, 15 units with dinner DISPENSE 5 vials 5 Each 3 12/29/19 20 023 Discontinued(Re fill) Ondansetron HCl 4 MG Oral Tablet (Zofran)Indication s:Gastroparesis TAKE ONE TABLET BY MOUTH EVERY 6 HOURS NEEDED FOR NAUSEA. 15 Tablet 0 07/09/20 22 023 Discontinued Famotidine 20 MG Oral Tablet (Pepcid)Indication s:Gastro-esophagea l reflux disease without esophagitis TAKE ONE TABLET BY MOUTH TWO TIMES A DAILY AY NEEDED FOR HEARTBURN 30 Tablet 1 08/03/20 22 023 Discontinued Nortriptyline HCl 75 MG Oral Capsule (Pamelor)Indicatio ns:Diabetic polyneuropathy associated with type 1 diabetes mellitus (HCC) TAKE ONE CAPSULE BY MOUTH AT BEDTIME 90 Capsule 3 07/20/20 22 023 Discontinued(Ad verse reaction) Spironolactone 25 MG Oral Tablet (Aldactone) Take 1 Tablet by mouth in the morning. 100 Tablet 3 03/22/20 23 023 Discontinued documented as of this encounter (statuses as of 05/27/2023) Active Problems Problem Noted Date Age-related osteopor [...] artery disease of n ative artery of [place] heart with stable angina pectoris 01/30/2017 Overview: More specific. 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 17 Last Assessment & Plan: Cognition at baseline -not tolerating Aricept HTN (hypertension) 09/28/2012 Atherosclerosis of [place] artery of extr emity 06/22/2012 Obstructive sleep apnea 01/13/2010 Overview: ICD-10 update of inactive term Last Assessment & Plan: Compliant with CPAP Old myocardial infarction 10/25/2009 Lumbar disc disorder with myelopathy Overview: Fentanyl patch caused severe nausea and vomiting Failed ultram Oxycodone caused nausea Preglaucoma 08/29/1998 History of TIA (transient ischemic attac k) documented as of this encounter (statuses as of 05/27/2023) Resolved Problems Problem Noted Date Resolved Date [...] as of this encounter (statuses as of 05/27/2023) Immunizations Name Administration Dates Next Due COVID-19 [...] Date Smoking Tobacco: Some Days Cigarettes 63 Last attempted to quit: 04/23/2022 Smokeless Tobacco: Never Tobacco Cessation:Ready to Q uit: No; Counseling Given: No Comments:2 - 4 cigarettes per month Alcohol [...] Sign Reading Time Taken Comments Blood Pressure 124/52 05/18/2023 4:27 PM EDT Pulse 68 05/18/2023 4:27 PM EDT Temperature 36.1 C (96.9 F) 05/18/2023 4:27 PM ED T Respiratory Rate 16 05/18/2023 4:27 PM EDT Oxygen Saturation 97% 05/18/2023 4:27 PM EDT Inhaled Oxygen Concentration - - Weight 90.4 kg (199 lb 6.4 oz) 05/18/2023 4:27 P M EDT Height 162.6 cm (5' 4") 05/18/2023 4:27 PM EDT Body Mass Index 34.23 05/18/2023 4:27 PM EDT documented in this encounter Functional Status Functional [...] No 03/01/2019 documented as of this encounter Patient Instructions * Patient Instructions* Estela White LPN - 05/18/2023 4:25 PM EDT ~~PATIENT INSTRUCTIONS FOR FLU SHOT~~ Possible side effects of influenza vaccine, (flu shot), are usually mild and include: 1. Soreness or redness at injection site 2. Low grade fever 3. Body aches You may use Tylenol/Acetaminophen as needed for these symptoms. LET YOUR DOCTOR KNOW IMMEDIATELY IF YOU HAVE DIFFICULTY BREATHING OR SWALLOWING, EXPERIENCE ITCHINGOF FEET OR HANDS, HAVE SWELLING OF EYES, FACE OR INSIDE OF NOSE. Patient Instructions - Fall Prevention (This education is for all patients over 65 regardless of symptoms) Remember to take your current medications as prescribed. In order to prevent falls, you are encouraged to: Exercise Utilize assistive/adaptive devices Avoid multifocal lenses when walking Avoid hazards in home Maintain a regular toileting schedule Any questions please contact our office. Preventing Falls in the Home (This education is for all patients over 65 regardless of symptoms) As you get older, falls are more likely. Thats because your reaction time slows. Your muscles and joints may also get stiffer, making them less flexible. Illness, medications, and vision changes can also affect your balance. A fall could leave you unable to live on your own. To make your home safer, follow these tips: Floors Put nonskid pads under area rugs Remove throw rugs Replace worn floor coverings Tack carpets firmly to each step on carpeted stairs. Put nonskid strips on the edges of uncarpeted stairs Keep floors and stairs free of clutter and cords Arrange furniture so there are clear pathways Clean up any spills right away Bathrooms Install grab bars in the tub or shower Apply nonskid strips or put a nonskid rubber mat in the tub or shower Sit on a bath chair to bathe Use bathmats with nonskid backing Lighting Keep a flashlight in each room Put a nightlight along the pathway between the bedroom and the bathroom [employer] Patient Education Copyright 2008 - 2010 [employer] except where otherwise noted Preventing Falls: Exercises to Improve Balance, Flexibility, Strength, and Staying Power (This education is for all patients over 65 regardless of symptoms) Certain types of exercises may help make you less likely to fall. Try the ones below. Or do other exercises that your healthcare provider suggests. Depending on your health, you may need to start slowly. Dont let that stop you. Even small amounts of exercise can help you. Be sure to talk to yourhealthcare provider before starting any exercise program. Improve Balance Many types of exercise can help improve balance. Dev chi and yoga are good examples. Heres another one to try. You can do it anytime and almost anywhere. Stand next to a counter or solid support. Push yourself up onto your tiptoes. Hold for 5 seconds. If you start to lose your balance, hold on to the counter. Rest and repeat 5 times. Work up to holding for 20 to 30 seconds, if you can. Increase Flexibility Being more flexible makes it easier for you to move around safely. Try exercises like the seated hamstring stretch. Sit in a chair and put one foot on a stool. Straighten your leg and reach with both hands down either side of your leg. Reach as far down your leg as you can. Hold for about 20 seconds. Go back to the starting position. Then repeat 5 times. Switch legs. Build Strength Resistance exercises help build strength. You can do them without equipment. Or you can use weights, elastic bands, or special machines. One such exercise is called the biceps curl. You can hold a 1 pound weight or even a can of soup. Do this exercise at least 3 times a week. Strive for everyday. Sit up straight in a chair. Keep your elbow close to your body and your wrist straight. Bend your arm, moving your hand up to your shoulder. Then slowly lower your arm. Repeat 5 times. Switch to the other arm. Build Your Staying Power Aerobic exercises make your heart and lungs stronger so you can keep moving longer. Walking and swimming are two of the best types of exercises you can do. Using a stationary bike is great, too. Find an aerobic exercise that you enjoy. Start slowly and build up. Even 5 minutes is helpful. Aimfor a goal of 30 minutes, at least 3 times a week. You dont have to do 30 minutes in one session. Break it up and walk a little throughout the day. More Helpful Tips Start easy. Slowly work up to doing more. Talk with your healthcare provider about the best exercises for you. Call senior centers or health clubs about exercise programs. If needed, have a family member watch you walk every so often to check your stability. Exercise with a friend. Choose an activity you both enjoy. Try exercises that you can do anytime, anywhere. Here are two examples. Have someone with you when you first try these: Practice walking by placing one foot right in front of the other. Stand up and sit down 10 times. Repeat this throughout the day. [employer] Patient Education Copyright 2009 - 2010 [employer] except where otherwise noted. Preventing Falls: Moving Safely Using a Cane or Walker (This education is for all patients over 65 regardless of symptoms) Keep the cane away from your feet so you dont trip. A walking aid, such as a cane or walker, can help you stay more independent and avoid falls. Remember to keep your walking aid within easy reach when youre in a chair or in bed. And learn how to use it safely so you dont injure yourself. Using a Cane If you have a stronger side, hold the cane on that side. Get your balance. Move the cane and your weaker leg forward. Support your weight on both the cane and your weaker side. Step with your stronger leg. Start again from step 1. If youre using a folding walker, be sure you know how to lock it open. Check that its locked open before each use. Using a Walker Roll the walker (or lift it, if youre using one without wheels) forward about 12 inches. Step forward with your weaker leg first. Use the walker to help keep your balance. Bring your other foot forward to the center of the walker. Start again from step 1. Helpful Tips Check with your healthcare provider about the right walking aid to use. Ask about a walker with a seat attached. Check the tips of your cane or walker to make sure they have nonskid covers. Move slowly from room to room. Dont lugo. Sit down to get dressed. Use a jody pack or backpack to keep your hands free. Get help for jobs that mean climbing, even on a stepstool. [employer] Patient Education Copyright 2008 - 2010 [employer] except where otherwise noted. Treating Urinary Incontinence in Men (This education is for all patients over 65 regardless of symptoms) You can't always control the release of urine. You may leak urine. Or you may not be able to hold your urine until you can get to a bathroom. This is called urinary incontinence. The problem can be managed. Talk to your doctor about your treatment options. Taking Medications Prescription medications may help you. They may: Help the sphincter to work better. (This is the muscle that closes to keep urine from leaking out of the bladder.) Help stop the bladder from jaret too often to push urine out. Help the bladder muscles contract with more force. Help relax the sphincter muscle and allow urine to flow more freely. Making Changes to Your Routine Certain changes in your daily routine may help. These include: Avoiding caffeine and alcohol. Using timed voiding. This is following a schedule for drinking fluids and urinating. Doing Kegel exercises daily. These exercises involve tightening the muscles in your sphincter and around your bladder to help strengthen them. Your doctor can explain how to do them. Using a Catheter A catheter is a narrow tube that is inserted through the urethra into the bladder. It drains urine.A condom catheter covers the penis. It channels urine into a collection bag. It is worn most of thetime. Intermittent catheterization means inserting a catheter to drain the bladder, then removing it. This is done on a regular schedule. Having Surgery If other options don't work, surgery may be recommended. If surgery is an option, your healthcare provider can discuss it with you and explain its risks and benefits. Healing After Prostate Surgery Surgery on the prostate gland can cause incontinence. Most often, the incontinence is only for a short time. It clears up when healing is complete. Very rarely, prostate surgery can result in permanent incontinence. documented in this encounter Progress Notes * Zachariah Duarte, DO - 05/27/2023 5:13 PM EDT Images from the original note were not included. History of Present Illness Kaleb Oakley is a 77 year old male that presents for Follow Up (Pt here for a 3m f/u) and Medication Administration (Flu and/or Pneumo Inj) Patient is a 77-year-old male with history of hypertension, diabetes mellitus type 2, CKD 3, COPD, chronic diastolic congestive heart failure, chronic respiratory failure with hypoxia, lumbar spinal stenosis. Patient complains of chronic shortness breath and dyspnea on exertion stable. Patient denies cough or sputum Patient denies chest pain palpitations or edema. Patient complains of clogged feeling left ear. Patient denies nasal congestion sore throat or earache. Patient complains of chronic low back pain with increased difficulty ambulating. Patient denies recent fall. Patient denies polyuria polydipsia or blurred vision. Patient denies hypoglycemia. Patient denies fatigue fever chills or sweats. Patient denies abdominal pain nausea vomiting diarrhea constipation. Patient denies urinary frequency dysuria urgency or hematuria. Patient denies headache dizziness weakness or numbness. Patient denies skin rash or lesions. Review systems otherwise negative Physical Exam Vitals: 05/18/23 1627 Temp: 36.1 C (96.9 F) Pulse: 68 Resp: 16 SpO2: 97% BP: 124/52 BMI: 34.21 General: alert, healthy, and no distress Head: Normocephalic, No masses, lesions, tenderness or abnormalities Eye Exam: PERRLA, extraocular movements intact, conjunctiva are pink and non- injected, sclera clear Ears: External ears normal, cerumen impaction left ear, TM's Normal Nose: no mucosal erythema, no mucosal edema, no purulent discharge Oropharynx: no exudate, no erythema, lips, buccal mucosa, and tongue normal, and mucous membranes are moist Neck: supple, no adenopathy, no bruits, thyroid normal size, non-tender, without nodularity Lymph: no palpable lymphadenopathy Heart: regular rate & rhythm, no murmur, and no gallops Lungs: chest symmetric with normal AP diameter, no chest deformities noted, no chest wall tenderness, decreased breath sounds bilateral with end-expiratory wheeze, no rales or rhonchi Pulses: carotid=2/4 w/o bruits Abdomen: abdomen soft, non-tender, normal bowel sounds, and no masses or organomegaly Back: back symmetric, no curvature, no costovertebral angle tenderness, r lumbar paravertebral muscle spasm and tenderness decreased range of motion lumbar flexion L1-L5 Extremities: less than 2 second capillary refill, no joint deformities, effusion, or inflammation Neuro Exam: alert & oriented x 3 with fluent speech, no focal motor/sensory deficits, shuffled gait decreased DTRs bilateral patella and Achilles Skin: skin color, texture, turgor are normal, no rashes or significant lesions I have reviewed the following results: PT INR, CMP, Lipid Panel, and Hemoglobin A1C Assessment and Plan Hypertensive heart and kidney disease with chronic diastolic congestive heart failure and stage 3a chronic kidney disease ([facility]) Continue present medication Metoprolol tartrate 100 mg 1 tab twice daily - ALBUMIN / CREATININE RATIO, URINE; Future Type 2 diabetes mellitus with stage 3a chronic kidney disease, with long-term current use of insulin ([facility]) Continue present medication Novolin N as directed twice daily Novolin R insulin 15 units three times daily with meals directed COPD, group B, by GOLD 2017 classification ([facility]) Continue present medication Incruse Ellipta 62.5 mcg inhale 1 puff once daily DuoNeb via nebulizer four times daily Chronic diastolic congestive heart failure ([facility]) Continue present medication Furosemide 20 mg 1 tab once daily plus additional 1 tab 2 days per week Chronic respiratory failure with hypoxia ([facility]) O2 2 liters/minute Impacted cerumen of left ear - REMOVAL IMPACTED CERUMEN IRRIGATION/LAVAGE, UNILAT Ear irrigation performed with success. Patient tolerated procedure well with no complications Need for prophylactic vaccination and inoculation against influenza - INFLUENZA VACC, QUAD, HIGH DOSE (FLUZ[facility] HD) Risk and functional assessment Spinal stenosis of lumbar region with neurogenic claudication Avoid strenuous activities, no heavy lifting Warm compresses four times daily affected area - XR L SPINE AP AND LATERAL - SPINE SURGERY REFERRAL OP Wrap-Up Follow Up: Return in about 3 months (around 08/17/2023) for Clinic Visit. | For: Clinic Visit Time: I spent a total of 40-54 minutes (exact time 40 mins) on the date of service in preparation, delivery, and documentation of the care provided to Kaleb Oakley excluding any time spent in the performance of separately billed services. * Estela White LPN - 05/18/2023 4:25 PM EDT PRE - ADMINISTRATION DOCUMENTATION Are you experiencing any cold symptoms or fever? No Have you had Guillain-Embarrass Syndrome (an illness that causes paralysis) within the last 6 weeks? No Have you had the flu shot in the past? YES Have you ever had a reaction to the flu shot? No Estela White LPN, 05/18/2023 4:25 PM Immunization Administration Documentation Time Out Procedure Performed: Yes Patient Identified (Ask Name/Date of ): Yes Does the patient have a fever greater than 101 degrees today? No Patient allergic to latex? No VFC Stock: No Immunization(s) verified: Yes, Immunization Name: Flu, VIS Sheet(s) given: Yes Verified Side and Site: Yes Verified Shot(s) with Parent(s)/Patient: Yes Fall Risk Plan of Care Documentation: - Current medications reconciled Patient encouraged to: - Exercise - Provide education materials for Core strengthening - Utilize assistive/adaptive devices - Provide education materials - Avoid multifocal lenses when walking - Avoid hazards in home - Provide education materials - Maintain a regular toileting schedule Estela White LPN 05/18/2023 documented in this encounter Plan of Treatment Upcoming Encounters Date Type Specialty Care Team Description 05/28/2023 [facility] [address] [facility] [place] [address] 06/08/2023 Appointment Radiology 06/10/2023 Scheduled Telephone [facility] Nurse Triage [address] [place] [address] 07/22/2023 Office Visit Sleep Disorders Marnie Hartman DO [address] [place] [address] 03/28/2024 Office Visit Rheumatology Yudi Horowitz CRNP [address] [facility] [place] [address] Scheduled Orders Name Type Priority Associated Diagnoses Orde r Schedule REMOVAL IMPACTED CERUMEN IRRIGATION/LAVAGE, UNILAT Procedures Routine Impacted cerumen of left ear Ordered: 05/18/2023 ALBUMIN / CREATININE RATIO, URINE Lab Routine 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) Expected: 05/18/2023 (Approximate), Expires: 05/17/2024 Scheduled Procedures Name Priority Associated Diagnoses Date/Ti me COLONOSCOPY FLEXIBLE PROXIMAL DIAGNOSTIC Recall History of colon polyps Scheduled Referrals Name Type Priority Associated Diagnoses Orde r Schedule SPINE SURGERY REFERRAL OP Referral Within 10 days (routine) Spinal stenosis of lumbar region with neurogenic claudication Ordered: 05/18/2023 Health Maintenance Due Date Last Done Comments Albumin/Creatinine Ratio 10/20/2022 022, 08/11/2017, 10/31/2015, Additional history exists COLONOSCOPY-EVERY 2 YRS AGES 18-100 11/19/2022 11/19/2020, 11/19/2020, 05/16/2015, Additional history exists Diabetic Foot Exam 02/06/2023 02/06/2022, 0 08/30/2019, 08/18/2018, Additional history exists COVID-19 Vaccine ( season) 2023 12/23/2021, 07/24/2021, 07/24/2021, Additional history exists CKD PHOS USE SMARTSET 70934 07/02/202306/23, 07/01/2021, 03/22/2020 DIABETES-EYE EXAM 07/20/2023 07/20/2022, [...] Scan 03/11/2024 03/11/2023 CKD HGB USE SMARTSET 45547 03/29/202403/29, 03/29/2023, 12/01/2022, Additional history exists DTaP,Tdap,and Td Vaccines (3 - Td or Tdap) 01/11/2028 01/10/2018, 10/03/2012 Pneumococcal Vaccine: 65+ Years Completed 05/14/2015, 09/11/2009, 07/12/2003 Zoster Vaccines Completed 03/22/2020, 08/30/2019 COLONOSCOPY-EVERY 5 YRS AGES 18-100 Discontinued 11/19/2020, 11/19/2020, 05/16/2015, Additional history exists Alpha-1 Antitrypsin Completed 03/11/2022 VITAMIN D LEVEL ONCE IN A LIFETIME-USE SMARTSET# [id number] Completed 03/29/2023, 05/12/2014 Influenza Vaccine (FLU shot) [...] Procedure Name Priority Date/Time Associated Diagnosis Comments XR L SPINE AP AND LATERAL Routine 05/18/2023 5:43 PM EDT Spinal stenosis of lumbar region with neurogenic claudication documented in this encounter Results * XR L SPINE AP AND LATERAL (05/18/2023 5:43 PM EDT) Anatomical Region Laterality Modality Vertebra, Lspine Computed Radiog russel 05/18/2023 5:45 PM EDT Impressions 05/22/2023 9:18 AM EDT IMPRESSION: Stable appearing moderate scoliosis and multilevel degenerative changes. THIS DOCUMENT HAS BEEN ELECTRONICALLY SIGNED BY ANTHONY TANNER MD Narrative 05/22/2023 9:18 AM EDT PROCEDURE INFORMATION: Exam: XR Lumbosacral Spine Exam date and time: 05/18/2023 5:45 PM Age: 77 years old Clinical indication: Spinal stenosis, lumbar region with neurogenic claudication; Additional info: Lumbar spinal stenosis TECHNIQUE: Imaging protocol: Radiologic exam of the lumbosacral spine. Views: 2 or 3 views. COMPARISON: DX XR L SPINE AP AND LATERAL 07/09/2022 6:35 PM FINDINGS: Bones/joints: Moderate levoscoliosis of lumbar spine. Moderate multilevel lumbar spondylosis with osteophyte formation. Degenerative type spinal stenosis at lower lumbar spine. No acute fractures. Soft tissues: Extensive atherosclerotic changes of abdominal aorta. Procedure Note Anthony Tanner MD - 05/22/2023 PROCEDURE INFORMATION: Exam: XR Lumbosacral Spine Exam date and time: 05/18/2023 5:45 PM Age: 77 years old Clinical indication: Spinal stenosis, lumbar region with neurogenic claudication; Additional info: Lumbar spinal stenosis TECHNIQUE: Imaging protocol: Radiologic exam of the lumbosacral spine. Views: 2 or 3 views. COMPARISON: DX XR L SPINE AP AND LATERAL 07/09/2022 6:35 PM FINDINGS: Bones/joints: Moderate levoscoliosis of lumbar spine. Moderatemultilevel lumbar spondylosis with osteophyte formation. Degenerative type spinal stenosis at lower lumbar spine. No acute fractures. Soft tissues: Extensive atherosclerotic changes of abdominal aorta. IMPRESSION IMPRESSION: Stable appearing moderate scoliosis and multilevel degenerative changes. 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)- Primary Type 2 diabetes mellitus with stage 3a chronic kidney disease, with long-term current use of insulin (HCC) COPD, group B, by GOLD 2017 classification (HCC) Chronic diastolic congestive heart failure (HCC) Chronic diastolic heart failure Chronic respiratory failure with hypoxia (HCC) Chronic respiratory failure Impacted cerumen of left ear Impacted cerumen Need for prophylactic vaccination and inoculation against influenza Risk and functional assessment Screening for unspecified condition Spinal stenosis of lumbar region with neurogenic claudication Spinal stenosis, lumbar region, with neurogenic claudication documented in this encounter Advance Directives Latest [...] the patient have Health Care Power of Poke In? No Full Code 08/14/2010 2:57 PM 08/15/2010 2:24 PM Thi s order reflects the patients wishes and were consensually agreed upon. Care Teams Variety Saw Operator Relationship Specialty Start Date End Date Zachariah Duarte DO [address] [place] [address] PCP - General Family Medicine 12/20/20 documented as of this encounter
--- OUTSIDE RECORDS SUMMARY | 2023-08-28 08:36 | External Medical Summary | Summary of Care ---
Author Name Unknown Organization [facility] Address [address] [facility] [place] [address] Phone [phone] Care Team Providers Care Web Services Professional Name Role Phone Zachariah Duarte DO Primary Care Provider [phone] Reason for Visit * Reason Comments Dosage Adjustment Via Phone (anticoag Cl inic) Encounter Details Date Type Department Care Team Description 05/28/2023 Anticoagulation Pharmacy Call Center [address] [place] [address] [facility] [address] [facility] [place] [address] Anticoagulation management encounter* Allergies Active Allergy Reactions Severity Noted Date Comments Propoxyphene N-Acetaminophen 06/22/2012 N/V Fentanyl Nausea/vomiting 10/15/2009 Oxycodone High 01/21/2023 Other reaction(s): vomiting Oxycodone-Acetaminophen Nausea/vomiting High 010 documented as of this encounter (statuses as of 05/28/2023) Medications Medication Sig Dispensed Refills Start Date [...] times daily 200 Each 11 06/23/2018 Active [facility] Natural Products (T-RELIEF [...] 1 Each 0 04/09/2022 Active oxygen IN GASIndications:[facility] Magistrate bobbi respiratory failure with hypoxia (HCC),Centrilobular emphysema [...] 90 Tablet 2 11/13/2022 4 Active Umeclidinium [place] 62.5 MCG/ACT Inhalation Aerosol Powder Breath Activated (INCRUSE ellipta)Indications :COPD, group B, by GOLD 2017 classification ([facility]) INHALE ONE PUFF BY MOUTH EVERY [...] 12 Hour (Ranexa)Indications :Coronary artery disease of [place] artery of [place] heart with stable angina pectoris (HCC) TAKE [...] hemoglobin A1c goal of less than 8.0% ([facility]) Inject 15 Units under the skin in the morning and 15 Units at noon and 15 Units before bedtime. With meals. DISPENSE 5 vials. 0 05/20/2023 Active documented as of this encounter (statuses as of 05/28/2023) Active Problems Problem Noted Date Age-related osteopor [...] artery disease of n ative artery of [place] heart with stable angina pectoris 01/30/2017 Overview: More specific. 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 17 Last Assessment & Plan: Cognition at baseline -not tolerating Aricept HTN (hypertension) 09/28/2012 Atherosclerosis of [place] artery of extr emity 06/22/2012 Obstructive sleep apnea 01/13/2010 Overview: ICD-10 update of inactive term Last Assessment & Plan: Compliant with CPAP Old myocardial infarction 10/25/2009 Lumbar disc disorder with myelopathy Overview: Fentanyl patch caused severe nausea and vomiting Failed ultram Oxycodone caused nausea Preglaucoma 08/29/1998 History of TIA (transient ischemic attac k) documented as of this encounter (statuses as of 05/28/2023) Resolved Problems Problem Noted Date Resolved Date [...] as of this encounter (statuses as of 05/28/2023) Immunizations Name Administration Dates Next Due COVID-19 [...] as of this encounter Progress Notes * Dori Ibarra, scale assembly set up worker - 05/28/2023 11:04 AM EDT Contacts Type Contact Phone/Fax 05/28/2023 11:02 AM EDT Phone (Outgoing) AdinKaleb (Self) [phone] (H) Left Message Subjective Advised patient to contact Anticoagulation Clinic if any unusual bruising or bleeding, recent illness, changes in medication, or questions/concerns. PT/INR results, Coumadin dose instructions, and next PT/INR date communicated as noted by Pharmacist: Yes SHIKHA BARLOW 05/28/2023, 11:04 AM * Layne Fuller RP - 05/28/2023 7:54 AM EDT Images from the original note were not included. Coumadin Clinic (region specific) Objective Current Warfarin Dose As of 05/28/2023 Warfarin maintenance plan: 2.5 mg (5 mg x 0.5) every day INR Result As of 05/28/2023 INR goal: 2.0-3.0 INR used for dosin.8 (05/27/2023) Assessment & Plan Warfarin Plan As of 05/28/2023 Full warfarin instructions: 10/6: 5 mg; Otherwise 2.5 mg every day Next INR check: 06/24/2023 Repeat PT/INR in 4 week(s) Weekly dose: not changed Additional Dosing Information: Description [facility] Tech to contact patient with dose instructions as noted. Layne Fuller RPh 05/28/2023, 7:54 AM documented in this encounter Plan of Treatment Upcoming Encounters Date Type Specialty Care Team Description 06/08/2023 Appointment Radiology 06/10/2023 Scheduled Telephone [facility] Nurse Triage [address] [facility] [place] [address] 06/24/2023 Laboratory Laboratory Processing [facility], [facility] Mobile Home Draw [address] [facility] [place] [id number] 06/25/2023 Anticoagulation Pharmacy Telepharmacy, [facility] 58 60 [facility] [place] [address] 07/22/2023 Office Visit Sleep Disorders Marnie Hartman, DO [address] [place] [address] 03/28/2024 Office Visit Rheumatology Yudi Horowitz CRNP [address] [facility] [place] [address] Scheduled Procedures Name Priority Associated Diagnoses Date/Ti [...] Additional history exists CKD PHOS USE SMARTSET 81686 07/02/202306/23, 07/01/2021, 03/22/2020 DIABETES-EYE EXAM 07/20/2023 07/20/2022, , 08/26/2020, Additional history exists O2 ASSESSMENT COMPLETED IN PAST YEAR FOR COPD 08/10/2023 08/10/2022 DISCUSS TOBACCO CESSATION (REFER TO SMARTSET #[id number]) 08/26/2023 08/26/2022, 05/27/2022, 02/11/2022, Additional history exists HbA1c 10/15/2023 04/14/2023, 06/23, 02/06/2022, Additional history exists Depression Screening 11/21/2023 11/20/2022 GFR 11/26/2023 05/27/2023, 08/10/2022, 03/29/2023, Additional history exists DXA Scan 03/11/2024 03/11/2023 CKD HGB USE SMARTSET 07280 03/29/202403/29, 03/29/2023, 12/01/2022, Additional history exists DTaP,Tdap,and Td Vaccines (3 - Td or Tdap) 01/11/2028 01/10/2018, 10/03/2012 Pneumococcal Vaccine: 65+ Years Completed 05/14/2015, 09/11/2009, 07/12/2003 Zoster Vaccines Completed 03/22/2020, 08/30/2019 COLONOSCOPY-EVERY 5 YRS AGES 18-100 Discontinued 11/19/2020, 11/19/2020, 05/16/2015, Additional history exists Alpha-1 Antitrypsin Completed 03/11/2022 VITAMIN D LEVEL ONCE IN A LIFETIME-USE SMARTSET# [id number] Completed 03/29/2023, 05/12/2014 Influenza Vaccine (FLU shot) [...] the patient have Health Care Power of Research Instructor? No Full Code 08/14/2010 2:57 PM 08/15/2010 2:24 PM Thi s order reflects the patients wishes and were consensually agreed upon. Care Teams Web Services Professional Relationship Specialty Start Date End Date Zachariah Duarte DO [address] [place] [address] PCP - General Family Medicine 12/20/20 documented as of this encounter
--- OUTSIDE RECORDS SUMMARY | 2023-08-28 08:36 | External Medical Summary | Summary of Care ---
Author Name Unknown Organization [facility] Address [address] [facility] [place] [address] Phone [phone] Care Team Providers Care Storage Garage Attendant Name Role Phone Zachariah Duarte DO Primary Care Provider Reason for Visit * Reason Onset Date Comments FYI 06/04/2023 Advice 06/04/2023 Encounter Details Date Type Department Care Team Description 06/04/2023 Telephone Pharmacy Call Center [address] [place] [address] [facility] 58 60 [facility] [place] [address] FYI; Advice Allergies Active Allergy Reactions Severity Noted Date Comments Propoxyphene N-Acetaminophen 06/22/2012 N/V Fentanyl Nausea/vomiting 10/15/2009 Oxycodone High 01/21/2023 Other reaction(s): vomiting Oxycodone-Acetaminophen Nausea/vomiting High 010 documented as of this encounter (statuses as of 06/09/2023) Medications Medication Sig Dispensed Refills Start Date [...] 1 Each 0 04/09/2022 Active oxygen IN GASIndications:Shade Bander bobbi respiratory failure with hypoxia (HCC),Centrilobular emphysema [...] 90 Tablet 2 11/13/2022 4 Active Umeclidinium [place] 62.5 MCG/ACT Inhalation Aerosol Powder Breath Activated (INCRUSE ellipta)Indications :COPD, group B, by GOLD 2017 classification ([facility]) INHALE ONE PUFF BY MOUTH EVERY DAY [...] 12 Hour (Ranexa)Indications :Coronary artery disease of [place] artery of [place] heart with stable angina pectoris (HCC) TAKE [...] hemoglobin A1c goal of less than 8.0% ([facility]) Inject 15 Units under the skin in the morning and 15 Units at noon and 15 Units before bedtime. With meals. DISPENSE 5 vials. 0 05/20/2023 Active documented as of this encounter (statuses as of 06/09/2023) Active Problems Problem Noted Date Age-related osteopor [...] artery disease of n ative artery of [place] heart with stable angina pectoris 01/30/2017 Overview: More specific. 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 17 Last Assessment & Plan: Cognition at baseline -not tolerating Aricept HTN (hypertension) 09/28/2012 Atherosclerosis of [place] artery of extr emity 06/22/2012 Obstructive sleep apnea 01/13/2010 Overview: ICD-10 update of inactive term Last Assessment & Plan: Compliant with CPAP Old myocardial infarction 10/25/2009 Lumbar disc disorder with myelopathy Overview: Fentanyl patch caused severe nausea and vomiting Failed ultram Oxycodone caused nausea Preglaucoma 08/29/1998 History of TIA (transient ischemic attac k) documented as of this encounter (statuses as of 06/09/2023) Resolved Problems Problem Noted Date Resolved Date [...] as of this encounter (statuses as of 06/09/2023) Immunizations Name Administration Dates Next Due COVID-19 [...] Notes * Telephone Encounter - Layne Fuller [facility] - 06/09/2023 4:09 PM EDT Spoke to patient today. Pt looking for status of [employer] home machine. [facility] will follow up with [employer] and let pt know. Layne Fuller Rp, Pharm.D. Clinical Pharmacist [facility] ([facility]) (formerly Telepharmacy) [phone] 06/09/2023,4:10 PM g * Telephone Encounter - SHIKHA Holcomb Tech - 06/07/2023 3:42 PM EDT Caller's name: Kaleb Preferred call back number(OFFICE NUMBER FOR ): [phone] Reason for call: Pt calling in asking to speak to Susu. Pt has questions about a home machine. Pt was unclear if it was in regards to glucose check or coumadin checks. Pls call pt to discuss. Padmini Carlson Urologist Physician [facility] ([facility]) (Formerly Telepharmacy) 06/07/2023, 3:42 PM * Telephone Encounter - Paris Wilkes RPh - 06/04/2023 9:04 AM EDT Noted - ACC to keep GML scheduled for 06/24/23 at this time unless [employer] team is able to get patient set up sooner with home machine. Thanks, Paris Wilkes PharmD Clinical Pharmacist [facility] ([facility]) (Formerly Telepharmacy) [phone] 06/04/2023 9:04 AM * Telephone Encounter - SHIKHA Schmitz - 06/04/2023 8:20 AM EDT Caller's name: Alexandro Preferred call back number(OFFICE NUMBER FOR ): [phone] Reason for call: Pt left VM to make [facility] aware that he received a letter from [employer] but has not received his equipment yet. Thank you, Kassy Mckee Outreach Associate [facility] ([facility]) (formerly Telepharmacy) 06/04/2023,8:20 AM documented in this encounter Plan of Treatment Upcoming Encounters Date Type Specialty Care Team Description 06/10/2023 Scheduled Telephone [facility] Nurse Triage [address] [place] [address] 06/24/2023 Laboratory Laboratory Processing [facility], [facility] Mobile Home Draw [address] [place] [address] 06/25/2023 [facility], [facility] [address] [place] [address] 07/22/2023 Office Visit Sleep Disorders Marnie Hartman, [address] [place] [address] 03/28/2024 Office Visit Rheumatology Yudi Horowitz CRNP [address] [place] [address] Scheduled Procedures Name Priority Associated Diagnoses Date/Ti me COLONOSCOPY FLEXIBLE PROXIMAL DIAGNOSTIC Recall History of colon polyps Health Maintenance Due Date Last Done Comments COLONOSCOPY-EVERY 2 YRS AGES 18-100 11/19/2022 11/19/2020, 11/19/2020, 05/16/2015, Additional history exists Diabetic Foot Exam 02/06/2023 02/06/2022, 0 08/30/2019, 08/18/2018, Additional history exists COVID-19 Vaccine ( season) 2023 12/23/2021, 07/24/2021, 07/24/2021, Additional history exists CKD PHOS USE SMARTSET 07399 07/02/202306/23, 07/01/2021, 03/22/2020 DIABETES-EYE EXAM 07/20/2023 07/20/2022, [...] Scan 03/11/2024 03/11/2023 CKD HGB USE SMARTSET 11993 03/29/202403/29, 03/29/2023, 12/01/2022, Additional history exists Albumin/Creatinine Ratio 05/31/2024 023, 10/20/2021, 08/11/2017, Additional history exists DTaP,Tdap,and Td Vaccines (3 - Td or Tdap) 01/11/2028 01/10/2018, 10/03/2012 Pneumococcal Vaccine: 65+ Years Completed 05/14/2015, 09/11/2009, 07/12/2003 Zoster Vaccines Completed 03/22/2020, 08/30/2019 COLONOSCOPY-EVERY 5 YRS AGES 18-100 Discontinued 11/19/2020, 11/19/2020, 05/16/2015, Additional history exists Alpha-1 Antitrypsin Completed 03/11/2022 VITAMIN D LEVEL ONCE IN A LIFETIME-USE SMARTSET# [id number] Completed 03/29/2023, 05/12/2014 Influenza Vaccine (FLU shot) [...] the patient have Health Care Power of Professor Of Vegetable Science? No Full Code 08/14/2010 2:57 PM 08/15/2010 2:24 PM Thi s order reflects the patients wishes and were consensually agreed upon. Care Teams Storage Garage Attendant Relationship Specialty Start Date End Date Zachariah Duarte DO [address] [place] [address] PCP - General Family Medicine 12/20/20 documented as of this encounter
--- OUTSIDE RECORDS SUMMARY | 2023-08-28 08:36 | External Medical Summary | Summary of Care ---
Author Name Unknown Organization [facility] Address [address] [facility] [place] [address] Phone [phone] Care Team Providers Care Flexo Press Operator Name Role Phone Zachariah Duarte DO Primary Care Provider Reason for Visit * Reason Onset Date Comments FYI 06/04/2023 Encounter Details Date Type Department Care Team Description 06/04/2023 Telephone Pharmacy Call Center [address] [place] [address] [facility] 58 60 [facility] [place] [address] FYI Allergies Active Allergy Reactions Severity Noted Date Comments Propoxyphene N-Acetaminophen 06/22/2012 N/V Fentanyl Nausea/vomiting 10/15/2009 Oxycodone High 01/21/2023 Other reaction(s): vomiting Oxycodone-Acetaminophen Nausea/vomiting High 010 documented as of this encounter (statuses as of 06/04/2023) Medications Medication Sig Dispensed Refills Start Date [...] 1 Each 0 04/09/2022 Active oxygen IN GASIndications: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 Specialist bobbi respiratory failure with hypoxia (HCC),Centrilobular emphysema [...] 90 Tablet 2 11/13/2022 4 Active Umeclidinium [place] 62.5 MCG/ACT Inhalation Aerosol Powder Breath Activated (INCRUSE ellipta)Indications :COPD, group B, by GOLD 2017 classification ([facility]) INHALE ONE PUFF BY MOUTH EVERY [...] 12 Hour (Ranexa)Indications :Coronary artery disease of [place] artery of [place] heart with stable angina pectoris (HCC) TAKE [...] A1c goal of less than 8.0% ([facility]) Inject 15 Units under the skin in the morning and 15 Units at noon and 15 Units before bedtime. With meals. DISPENSE 5 vials. 0 05/20/2023 Active documented as of this encounter (statuses as of 06/04/2023) Active Problems Problem Noted Date Age-related osteopor [...] artery disease of n ative artery of [place] heart with stable angina pectoris 01/30/2017 Overview: More specific. 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 Last Assessment & Plan: Cognition at baseline -not tolerating Aricept HTN (hypertension) 09/28/2012 Atherosclerosis of [place] artery of extr emity 06/22/2012 Obstructive sleep apnea 01/13/2010 Overview: ICD-10 update of inactive term Last Assessment & Plan: Compliant with CPAP Old myocardial infarction 10/25/2009 Lumbar disc disorder with myelopathy Overview: Fentanyl patch caused severe nausea and vomiting Failed ultram Oxycodone caused nausea Preglaucoma 08/29/1998 History of TIA (transient ischemic attac k) documented as of this encounter (statuses as of 06/04/2023) Resolved Problems Problem Noted Date Resolved Date [...] as of this encounter (statuses as of 06/04/2023) Immunizations Name Administration Dates Next Due COVID-19 [...] encounter Miscellaneous Notes * Telephone Encounter - Paris Wilkes [facility] - 06/04/2023 9:04 AM EDT Noted - ACC to keep GML scheduled for 06/24/23 at this time unless [employer] team is able to get patient set up sooner with home machine. Thanks, Paris Wilkes PharmD Clinical Pharmacist Centralized Clinical Pharmacy Services (CCPS) (Formerly Telepharmacy) [phone] 06/04/2023 9:04 AM * Telephone Encounter - SHIKHA Schmitz - 06/04/2023 8:20 AM EDT Caller's name: Alexandro Preferred call back number(OFFICE NUMBER FOR ): [phone] Reason for call: Pt left to make ACC aware that he received a letter from [employer] but has not received his equipment yet. Thank you, Kassy Mckee Turner Off Centralized Clinical Pharmacy Services (CCPS) (formerly Telepharmacy) 06/04/2023,8:20 AM documented in this encounter Plan of Treatment Upcoming Encounters Date Type Specialty Care Team Description 06/08/2023 Appointment Radiology 06/10/2023 Scheduled Telephone [facility] Nurse Triage [address] [place] [address] 06/24/2023 Laboratory Laboratory Processing [facility], [facility] Mobile Home Draw [address] [place] [address] 06/25/2023 [facility], [facility] [address] [place] [address] 07/22/2023 Office Visit Sleep Disorders Marnie Hartman DO [address] [place] [address] 03/28/2024 Office Visit Rheumatology Yudi Horowitz CRNP [address] [place] [address], [place] [address] Scheduled Procedures Name Priority Associated Diagnoses Date/Ti me COLONOSCOPY FLEXIBLE PROXIMAL DIAGNOSTIC Recall History of colon polyps Health Maintenance Due Date Last Done Comments COLONOSCOPY-EVERY 2 YRS AGES 18-100 11/19/2022 11/19/2020, 11/19/2020, 05/16/2015, Additional history exists Diabetic Foot Exam 02/06/2023 02/06/2022, 0 08/30/2019, 08/18/2018, Additional history exists COVID-19 Vaccine ( season) 2023 12/23/2021, 07/24/2021, 07/24/2021, Additional history exists CKD PHOS USE SMARTSET 05219 07/02/202306/23, 07/01/2021, 03/22/2020 DIABETES-EYE EXAM 07/20/2023 07/20/2022, [...] Scan 03/11/2024 03/11/2023 CKD HGB USE SMARTSET 13835 03/29/202403/29, 03/29/2023, 12/01/2022, Additional history exists Albumin/Creatinine Ratio 05/31/2024 023, 10/20/2021, 08/11/2017, Additional history exists DTaP,Tdap,and Td Vaccines (3 - Td or Tdap) 01/11/2028 01/10/2018, 10/03/2012 Pneumococcal Vaccine: 65+ Years Completed 05/14/2015, 09/11/2009, 07/12/2003 Zoster Vaccines Completed 03/22/2020, 08/30/2019 COLONOSCOPY-EVERY 5 YRS AGES 18-100 Discontinued 11/19/2020, 11/19/2020, 05/16/2015, Additional history exists Alpha-1 Antitrypsin Completed 03/11/2022 VITAMIN D LEVEL ONCE IN A LIFETIME-USE SMARTSET# [id number] Completed 03/29/2023, 05/12/2014 Influenza Vaccine (FLU shot) [...] the patient have Health Care Power of Sandwich Maker? No Full Code 08/14/2010 2:57 PM 08/15/2010 2:24 PM Thi s order reflects the patients wishes and were consensually agreed upon. Care Teams Flexo Press Operator Relationship Specialty Start Date End Date Zachariah Duarte DO [address] [place] [address] PCP - General Family Medicine 12/20/20 documented as of this encounter
--- OUTSIDE RECORDS SUMMARY | 2023-08-28 08:36 | External Medical Summary | Summary of Care ---
Author Name Unknown Organization [facility] Address [address] [facility] [place] [place] [address] Phone [phone] Care Team Providers Care Power And Recovery Supervisor Name Role Phone Zachariah Duarte DO Primary Care Provider Reason for Visit * Reason Onset Date Comments FYI 06/04/2023 Advice 06/04/2023 Encounter Details Date Type Department Care Team Description 06/04/2023 Telephone Pharmacy Call Center [address] [place] [address] [facility] 58 60 [facility] [place] [address] FYI; Advice Allergies Active Allergy Reactions Severity Noted Date Comments Propoxyphene N-Acetaminophen 06/22/2012 N/V Fentanyl Nausea/vomiting 10/15/2009 Oxycodone High 01/21/2023 Other reaction(s): vomiting Oxycodone-Acetaminophen Nausea/vomiting High 010 documented as of this encounter (statuses as of 06/07/2023) Medications Medication Sig Dispensed Refills Start Date [...] 1 Each 0 04/09/2022 Active oxygen IN GASIndications: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 17 Last Assessment & Plan: Cognition at baseline -not tolerating Aricept HTN (hypertension) 09/28/2012 Atherosclerosis of [place] artery of extr emity 06/22/2012 Obstructive sleep apnea 01/13/2010 Overview: ICD-10 update of inactive term Last Assessment & Plan: Compliant with CPAP Old myocardial infarction 10/25/2009 Lumbar disc disorder with myelopathy Overview: Fentanyl patch caused severe nausea and vomiting Failed ultram Oxycodone caused nausea Preglaucoma 08/29/1998 History of TIA (transient ischemic attac k) documented as of this encounter (statuses as of 06/07/2023) Resolved Problems Problem Noted Date Resolved Date [...] as of this encounter (statuses as of 06/07/2023) Immunizations Name Administration Dates Next Due COVID-19 [...] encounter Miscellaneous Notes * Telephone Encounter - Padmini Carlson, commercial airline pilot - 06/07/2023 3:42 PM EDT Caller's name: Kaleb Preferred call back number(OFFICE NUMBER FOR ): [phone] Reason for call: Pt calling in asking to speak to Susu. Pt has questions about a home machine. Pt was unclear if it was in regards to glucose check or coumadin checks. Pls call pt to discuss. Padmini Carlson Lamp Decorator Centralized Clinical Pharmacy Services (CCPS) (Formerly Telepharmacy) 06/07/2023, 3:42 PM * Telephone Encounter - Paris Wilkes RPh - 06/04/2023 9:04 AM EDT Noted - ACC to keep GML scheduled for 06/24/23 at this time unless [employer] team is able to get patient set up sooner with home machine. Thanks, Paris Wilkes PharmD Clinical Pharmacist Centralized Clinical Pharmacy Services (CCPS) (Formerly Telepharmacy) [phone] 06/04/2023 9:04 AM * Telephone Encounter - SHIKHA Schmitz - 06/04/2023 8:20 AM EDT Caller's name: Alexandro Preferred call back number(OFFICE NUMBER FOR ): [phone] Reason for call: Pt left to make ACC aware that he received a letter from [employer] but has not received his equipment yet. Thank you, Kassy Mckee Screw Machine Adjuster Automatic Centralized Clinical Pharmacy Services (CCPS) (formerly Telepharmacy) 06/04/2023,8:20 AM documented in this encounter Plan of Treatment Upcoming Encounters Date Type Specialty Care Team Description 06/10/2023 Scheduled Telephone [facility] Nurse Triage [address] [facility] [place] [address] 06/24/2023 Laboratory Laboratory Processing [facility] Mobile Home Draw [address] [place] [address] 06/25/2023 [facility]ticoagulation Pharmacy [facility] [address] 60 [facility] [address] 07/22/2023 Office Visit Sleep Disorders Marnie Hartman, DO [address] [place] [address] 03/28/2024 Office Visit Rheumatology Yudi Horowitz CRNP [address] [facility], [place] [address] Scheduled Procedures Name Priority Associated Diagnoses Date/Ti me COLONOSCOPY FLEXIBLE PROXIMAL DIAGNOSTIC Recall History of colon polyps Health Maintenance Due Date Last Done Comments COLONOSCOPY-EVERY 2 YRS AGES 18-100 11/19/2022 11/19/2020, 11/19/2020, 05/16/2015, Additional history exists Diabetic Foot Exam 02/06/2023 02/06/2022, 0 08/30/2019, 08/18/2018, Additional history exists COVID-19 Vaccine ( season) 2023 12/23/2021, 07/24/2021, 07/24/2021, Additional history exists CKD PHOS USE SMARTSET 25153 07/02/202306/23, 07/01/2021, 03/22/2020 DIABETES-EYE EXAM 07/20/2023 07/20/2022, [...] Scan 03/11/2024 03/11/2023 CKD HGB USE SMARTSET 09419 03/29/202403/29, 03/29/2023, 12/01/2022, Additional history exists Albumin/Creatinine Ratio 05/31/2024 023, 10/20/2021, 08/11/2017, Additional history exists DTaP,Tdap,and Td Vaccines (3 - Td or Tdap) 01/11/2028 01/10/2018, 10/03/2012 Pneumococcal Vaccine: 65+ Years Completed 05/14/2015, 09/11/2009, 07/12/2003 Zoster Vaccines Completed 03/22/2020, 08/30/2019 COLONOSCOPY-EVERY 5 YRS AGES 18-100 Discontinued 11/19/2020, 11/19/2020, 05/16/2015, Additional history exists Alpha-1 Antitrypsin Completed 03/11/2022 VITAMIN D LEVEL ONCE IN A LIFETIME-USE SMARTSET# [id number] Completed 03/29/2023, 05/12/2014 Influenza Vaccine (FLU shot) [...] the patient have Health Care Power of [place] Gold Attendant? No Full Code 08/14/2010 2:57 PM 08/15/2010 2:24 PM Thi s order reflects the patients wishes and were consensually agreed upon. Care Teams Power And Recovery Supervisor Relationship Specialty Start Date End Date Zachariah Duarte DO [address] [place] [address] PCP - General Family Medicine 12/20/20 documented as of this encounter
--- OUTSIDE RECORDS SUMMARY | 2023-08-28 08:36 | External Medical Summary | Summary of Care ---
Author Name Unknown Organization [facility] Address [address] [facility] [place] [address] Phone [phone] Care Team Providers Care Superintendent Tests Name Role Phone Zachariah Duarte DO Primary Care Provider Reason for Visit * Reason Onset Date Comments Test Results 06/01/2023 Encounter Details Date Type Department Care Team Description 06/01/2023 Telephone Cardiology, [facility] [address] [place] [address] Faby Singleton PA-C [address] [place] [id number] Test Results Allergies Active Allergy Reactions Severity Noted Date Comments Propoxyphene N-Acetaminophen 06/22/2012 N/V Fentanyl Nausea/vomiting 10/15/2009 Oxycodone High 01/21/2023 Other reaction(s): vomiting Oxycodone-Acetaminophen Nausea/vomiting High 010 documented as of this encounter (statuses as of 06/01/2023) Medications Medication Sig Dispensed Refills Start Date [...] 1 Each 0 04/09/2022 Active oxygen IN GASIndications:Bridge Welder bobbi respiratory failure with hypoxia (HCC),Centrilobular emphysema [...] 90 Tablet 2 11/13/2022 4 Active Umeclidinium [place] 62.5 MCG/ACT Inhalation Aerosol Powder Breath Activated [...] 12 Hour (Ranexa)Indications :Coronary artery disease of [place] artery of [place] heart with stable angina pectoris (HCC) TAKE [...] as of this encounter (statuses as of 06/01/2023) Active Problems Problem Noted Date Age-related osteopor [...] artery disease of n ative artery of [place] heart with stable angina pectoris 01/30/2017 Overview: More specific. 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 17 Last Assessment & Plan: Cognition at baseline -not tolerating Aricept HTN (hypertension) 09/28/2012 Atherosclerosis of [place] artery of extr emity 06/22/2012 Obstructive sleep apnea 01/13/2010 Overview: ICD-10 update of inactive term Last Assessment & Plan: Compliant with CPAP Old myocardial infarction 10/25/2009 Lumbar disc disorder with myelopathy Overview: Fentanyl patch caused severe nausea and vomiting Failed ultram Oxycodone caused nausea Preglaucoma 08/29/1998 History of TIA (transient ischemic attac k) documented as of this encounter (statuses as of 06/01/2023) Resolved Problems Problem Noted Date Resolved Date [...] as of this encounter (statuses as of 06/01/2023) Immunizations Name Administration Dates Next Due COVID-19 [...] encounter Miscellaneous Notes * Telephone Encounter - Lady Merrill CMA - 06/01/2023 12:51 PM EDT Portal message sent to pt. * Telephone Encounter - Lady Merrill CMA - 06/01/2023 12:47 PM EDT ----- Message from Faby Singleton PA-C sent at 05/31/2023 4:56 PM EDT ----- Improved renal function and potassium. Remain off spironolactone Continue furosemide. Monitor fluid status and call with worsening edema/weight gain/SOB No changes at this time documented in this encounter Plan of Treatment Upcoming Encounters Date Type Specialty Care Team Description 06/08/2023 Appointment Radiology 06/10/2023 Scheduled Telephone [facility] Nurse Triage [address] [place] [address] 06/24/2023 Laboratory Laboratory Processing [facility], [facility] Mobile Home Draw [address] [place] [address] 06/25/2023 [facility] [address] [place] [address] 07/22/2023 Office Visit Sleep Disorders Marnie Hartman DO [address] [place] [address] 03/28/2024 Office Visit Rheumatology Yudi Horowitz CRNP [facility] [place] [address] Scheduled Procedures Name Priority Associated Diagnoses Date/Ti me COLONOSCOPY FLEXIBLE PROXIMAL DIAGNOSTIC Recall History of colon polyps Health Maintenance Due Date Last Done Comments COLONOSCOPY-EVERY 2 YRS AGES 18-100 11/19/2022 11/19/2020, 11/19/2020, 05/16/2015, Additional history exists Diabetic Foot Exam 02/06/2023 02/06/2022, 0 08/30/2019, 08/18/2018, Additional history exists COVID-19 Vaccine ( season) 2023 12/23/2021, 07/24/2021, 07/24/2021, Additional history exists CKD PHOS USE SMARTSET 87682 07/02/202306/23, 07/01/2021, 03/22/2020 DIABETES-EYE EXAM 07/20/2023 07/20/2022, [...] Scan 03/11/2024 03/11/2023 CKD HGB USE SMARTSET 16026 03/29/202403/29, 03/29/2023, 12/01/2022, Additional history exists Albumin/Creatinine Ratio 05/31/2024 023, 10/20/2021, 08/11/2017, Additional history exists DTaP,Tdap,and Td Vaccines (3 - Td or Tdap) 01/11/2028 01/10/2018, 10/03/2012 Pneumococcal Vaccine: 65+ Years Completed 05/14/2015, 09/11/2009, 07/12/2003 Zoster Vaccines Completed 03/22/2020, 08/30/2019 COLONOSCOPY-EVERY 5 YRS AGES 18-100 Discontinued 11/19/2020, 11/19/2020, 05/16/2015, Additional history exists Alpha-1 Antitrypsin Completed 03/11/2022 VITAMIN D LEVEL ONCE IN A LIFETIME-USE SMARTSET# [id number] Completed 03/29/2023, 05/12/2014 Influenza Vaccine (FLU shot) [...] the patient have Health Care Power of Adzing And Boring Machine Helper? No Full Code 08/14/2010 2:57 PM 08/15/2010 2:24 PM Thi s order reflects the patients wishes and were consensually agreed upon. Care Teams Superintendent Tests Relationship Specialty Start Date End Date Zachariah Duarte DO [address] [place] [address] PCP - General Family Medicine 12/20/20 documented as of this encounter
--- OUTSIDE RECORDS SUMMARY | 2023-08-28 08:36 | External Medical Summary | Summary of Care ---
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..] 1 Each 0 04/09/2022 Active oxygen IN GASIndications:Music Publisher bobbi respiratory failure with hypoxia (HCC),Centrilobular emphysema [...] 90 Tablet 2 11/13/2022 4 Active Umeclidinium [place] 62.5 MCG/ACT Inhalation Aerosol Powder Breath Activated (INCRUSE ellipta)Indications :COPD, group B, by GOLD 2017 classification ([facility]) INHALE ONE PUFF BY MOUTH EVERY DAY [...] 12 Hour (Ranexa)Indications :Coronary artery disease of [place] artery of [place] heart with stable angina pectoris (HCC) TAKE [...] hemoglobin A1c goal of less than 8.0% ([facility]) Inject 15 Units under the skin in the morning and 15 Units at noon and 15 Units before bedtime. With meals. DISPENSE 5 vials. 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 17 Last Assessment & Plan: Cognition at baseline -not tolerating Aricept HTN (hypertension) 09/28/2012 Atherosclerosis of [place] artery of extr emity 06/22/2012 Obstructive sleep apnea 01/13/2010 Overview: ICD-10 update of inactive term Last Assessment & Plan: Compliant with CPAP Old myocardial infarction 10/25/2009 Lumbar disc disorder with myelopathy Overview: Fentanyl patch caused severe nausea and vomiting Failed ultram Oxycodone caused nausea Preglaucoma 08/29/1998 History of TIA (transient ischemic attac k) documented as of this encounter (statuses as of 05/31/2023) Resolved Problems Problem Noted Date Resolved Date [...] as of this encounter (statuses as of 05/31/2023) Immunizations Name Administration Dates Next Due COVID-19 [...] (15 years old or older) No 03/01/20 Cognitive Status Response Date of Assessm ent Because of a physical, menta l, or emotional condition, do you have serious difficulty concentrating, remembering, or making decisions? (5 years old or older No 03/01/2019 documented as of this encounter Plan of Treatment Upcoming Encounters Date Type Specialty Care Team Description 06/08/2023 Appointment Radiology 06/10/2023 Scheduled Telephone [facility] Nurse Triage [address] [place] [address] 06/24/2023 Laboratory Laboratory Processing [facility] Mobile Home Draw [address] [place] [address] 06/25/2023 [facility] [address] [facility] [address] 07/22/2023 Office Visit Sleep Disorders Marnie Hartman DO [address] [place] [address] 03/28/2024 Office Visit [facility]umat[facility]owitz [facility] [address] [facility] [address] Pending Results Name Type Priority Associated Diagnoses Date /Time ALBUMIN / CREATININE RATIO, URINE Lab Routine Chronic kidney disease, stage 3a (HCC) 05/31/2023 3:46 PM EDT Scheduled Procedures Name Priority Associated Diagnoses Date/Ti me COLONOSCOPY FLEXIBLE PROXIMAL DIAGNOSTIC Recall History of colon polyps Health Maintenance Due Date Last Done Comments Albumin/Creatinine Ratio 10/20/202210/20/2 022, 08/11/2017, 10/31/2015, Additional history exists COLONOSCOPY-EVERY 2 YRS AGES 18-100 11/19/2022 11/19/2020, 11/19/2020, 05/16/2015, Additional history exists Diabetic Foot Exam 02/06/2023 02/06/2022, 0 08/30/2019, 08/18/2018, Additional history exists COVID-19 Vaccine ( season) 2023 12/23/2021, 07/24/2021, 07/24/2021, Additional history exists CKD PHOS USE SMARTSET [id number] 07/02/202306/23, 07/01/2021, 03/22/2020 DIABETES-EYE EXAM 07/20/2023 07/20/2022, [...] Scan 03/11/2024 03/11/2023 CKD HGB USE SMARTSET 62115 03/29/202403/29, 03/29/2023, 12/01/2022, Additional history exists DTaP,Tdap,and Td Vaccines (3 - Td or Tdap) 01/11/2028 01/10/2018, 10/03/2012 Pneumococcal Vaccine: 65+ Years Completed 05/14/2015, 09/11/2009, 07/12/2003 Zoster Vaccines Completed 03/22/2020, 08/30/2019 COLONOSCOPY-EVERY 5 YRS AGES 18-100 Discontinued 11/19/2020, 11/19/2020, 05/16/2015, Additional history exists Alpha-1 Antitrypsin Completed 03/11/2022 VITAMIN D LEVEL ONCE IN A LIFETIME-USE SMARTSET# [id number] Completed 03/29/2023, 05/12/2014 Influenza Vaccine (FLU shot) [...] as of this encounter Visit Diagnoses Diagnosis Chronic kidney disease, stage 3a (HCC) 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 No Full Code 08/14/2010 2:57 PM 08/15/2010 2:24 PM Thi s order reflects the patients wishes and were consensually agreed upon. Care Teams Voice Writing Reporter Relationship Specialty Start Date End Date Zachariah Duarte DO [address] [place] [address] PCP - General Family Medicine 12/20/20 documented as of this encounter
--- OUTSIDE RECORDS SUMMARY | 2023-08-28 08:36 | External Medical Summary | Summary of Care ---
Author Name Unknown Organization [facility] Address [address] [facility] [place] [address] Phone [phone] Care Team Providers Care Core Checker Name Role Phone Zachariah Duarte DO Primary Care Provider [phone] Reason for Visit * Reason Onset Date Comments [facility]: Maintenance 06/10/2023 Encounter Details Date Type Department Care Team Description 06/10/2023 Scheduled Telephone 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 17 Last Assessment & Plan: Cognition at baseline -not tolerating Aricept HTN (hypertension) 09/28/2012 Atherosclerosis of [place] artery of extr emity 06/22/2012 Obstructive sleep [...] Telephone Encounter - Margi Etienne RN - 06/10/2023 9:21 AM EDT [facility] [employer] [employer] Monthly Visit Date: 06/10/2023 Time: 9:21 AM Name: Kaleb Oakley : 1945 Monthly follow up call to Kaleb, no answer, left detailed message requesting call back. Will call back at 1pm tomorrow Margi Etienne RN 06/10/2023 documented in this encounter Plan of Treatment Upcoming Encounters Date Type Specialty Care Team Description 06/11/2023 Scheduled Telephone [facility] Nurse Triage [address] [place] [address] 06/24/2023 Laboratory [place] [facility] [facility] Home Draw [address] [place] [address] 06/25/2023 [facility] [address] [place] [address] 07/22/2023 Office Visit Sleep Disorders Marnie Hartman DO [address] [place] [address] 03/28/2024 Office Visit Rheumatology Yudi Horowitz CRNP [address] [place] [address] Scheduled Procedures Name Priority Associated Diagnoses Date/Ti me COLONOSCOPY FLEXIBLE PROXIMAL DIAGNOSTIC Recall History of colon polyps Health Maintenance Due Date Last Done Comments COLONOSCOPY-EVERY 2 YRS AGES 18-100 11/19/2022 11/19/2020, 11/19/2020, 05/16/2015, Additional history exists Diabetic Foot Exam 02/06/2023 02/06/2022, 0 08/30/2019, 08/18/2018, Additional history exists COVID-19 Vaccine ( season) 2023 12/23/2021, 07/24/2021, 07/24/2021, Additional history exists CKD PHOS USE SMARTSET 43672 07/02/202306/23, 07/01/2021, 03/22/2020 DIABETES-EYE EXAM 07/20/2023 07/20/2022, [...] Scan 03/11/2024 03/11/2023 CKD HGB USE SMARTSET 21366 03/29/202403/29, 03/29/2023, 12/01/2022, Additional history exists Albumin/Creatinine Ratio 05/31/2024 023, 10/20/2021, 08/11/2017, Additional history exists DTaP,Tdap,and Td Vaccines (3 - Td or Tdap) 01/11/2028 01/10/2018, 10/03/2012 Pneumococcal Vaccine: 65+ Years Completed 05/14/2015, 09/11/2009, 07/12/2003 Zoster Vaccines Completed 03/22/2020, 08/30/2019 COLONOSCOPY-EVERY 5 YRS AGES 18-100 Discontinued 11/19/2020, 11/19/2020, 05/16/2015, Additional history exists Alpha-1 Antitrypsin Completed 03/11/2022 VITAMIN D LEVEL ONCE IN A LIFETIME-USE SMARTSET# [id number] Completed 03/29/2023, 05/12/2014 Influenza Vaccine (FLU shot) [...] the patient have Health Care Power of Verse Writer? No Full Code 08/14/2010 2:57 PM 08/15/2010 2:24 PM Thi s order reflects the patients wishes and were consensually agreed upon. Care Teams Core Checker Relationship Specialty Start Date End Date Zachariah Duarte DO [address] [place] [address] PCP - General Family Medicine 12/20/20 documented as of this encounter
--- OUTSIDE RECORDS SUMMARY | 2023-08-28 08:36 | External Medical Summary | Summary of Care ---
Author Name Unknown Organization [facility] Address [address] [facility] [address] Phone [phone] Care Team Providers Care Web Design Intern Name Role Phone Zachariah Duarte DO Primary Care Provider [phone] Reason for Referral * Precert (Within 10 days (routine)) - Pending Review Specialty Diagnoses / Procedures Referred By Contac t Referred To Contact Radiology Diagnoses Degenerative scoliosis Spinal stenosis of lumbar region, unspecified whether neurogenic claudication present Procedures MRI L SPINE WO CONTRAST Rocio Upton MD [address] [place] [id number] Referral ID Status Reason Start Date Expiration Date V isits Requested Visits Authorized [id number] Pending Review 05/28/2023 999 999 Reason for Visit * Precert (Within 10 days (routine)) - Pending Review Specialty Diagnoses / Procedures Referred By Contac t Referred To Contact Radiology Diagnoses Degenerative scoliosis Spinal stenosis of lumbar region, unspecified whether neurogenic claudication present Procedures MRI L SPINE WO CONTRAST Rocio Upton MD [address] [place] [id number] Referral ID Status Reason Start Date Expiration Date V isits Requested Visits Authorized [id number] Pending Review 05/28/[phone] Encounter Details Date Type Department Care Team Description 06/08/2023 Hospital Encounter Radiology, [address] [place] [address] Arrived Allergies Active Allergy Reactions Severity Noted Date [...] for lantus 1 box 11 09/11/2009 Active [employer] ToursTOUCH ULTRA 2 W/DEVICE KITIndications:DM type 2, goal A1C 7-8 use as directed 1 Kit 0 03/09/2012 Active Okoaafrica ToursTOUCH DELICA LANCETS MISCIndications:DM type 2, goal A1C 7-8 use up to 4 times daily 100 Each 11 03/09/2012 Active [employer] ToursTOUCH ULTRA BLUE STRPIndications:DM type 2, goal A1C [...] 8.0% ([facility]) Use to inject insulin 5 times daily [...] Each 0 04/09/2022 Active oxygen IN GASIndications: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 17 Last Assessment & Plan: Cognition at baseline -not tolerating Aricept HTN (hypertension) 09/28/2012 Atherosclerosis of [place] artery of extr emity 06/22/2012 Obstructive sleep [...] Team Description 06/10/2023 Scheduled Telephone [facility] Nurse Triage [address] [place] [address] 06/24/2023 Laboratory Laboratory Processing [facility], [facility] Mobile Home Draw [address] [place] [address] 06/25/2023 Anticoagulation Pharmacy [facility] [address] [place] [address] 07/22/2023 Office Visit Sleep Disorders Marnie Hartman DO [address] [place] [address] 03/28/2024 Office Visit Rheumatology Yudi Horowitz CRNP [address] [place] [address] Scheduled Procedures Name Priority Associated Diagnoses Date/Ti me COLONOSCOPY FLEXIBLE PROXIMAL DIAGNOSTIC Recall History of colon polyps Health Maintenance Due Date Last Done Comments COLONOSCOPY-EVERY 2 YRS AGES 18-100 11/19/2022 11/19/2020, 11/19/2020, 05/16/2015, Additional history exists Diabetic Foot Exam 02/06/2023 02/06/2022, 0 08/30/2019, 08/18/2018, Additional history exists COVID-19 Vaccine (2022- season) 2023 12/23/2021, 07/24/2021, 07/24/2021, Additional history exists CKD PHOS USE SMARTSET 41033 07/02/202306/23, 07/01/2021, 03/22/2020 DIABETES-EYE EXAM 07/20/2023 07/20/2022, [...] Scan 03/11/2024 03/11/2023 CKD HGB USE SMARTSET [id number] 03/29/202403/29, 03/29/2023, 12/01/2022, Additional history exists Albumin/Creatinine Ratio 05/31/2024 023, 10/20/2021, 08/11/2017, Additional history exists DTaP,Tdap,and Td Vaccines (3 - Td or Tdap) 01/11/2028 01/10/2018, 10/03/2012 Pneumococcal Vaccine: 65+ Years Completed 05/14/2015, 09/11/2009, 07/12/2003 Zoster Vaccines Completed 03/22/2020, 08/30/2019 COLONOSCOPY-EVERY 5 YRS AGES 18-100 Discontinued 11/19/2020, 11/19/2020, 05/16/2015, Additional history exists Alpha-1 Antitrypsin Completed 03/11/2022 VITAMIN D LEVEL ONCE IN A LIFETIME-USE SMARTSET# [id number] Completed 03/29/2023, 05/12/2014 Influenza Vaccine (FLU shot) [...] Procedure Name Priority Date/Time Associated Diagnosis Comments MRI L SPINE WO CONTRAST Routine 06/08/2023 4:20 PM EDT Degenerative scoliosis Spinal stenosis of lumbar region, unspecified whether neurogenic claudication present documented in this encounter Results * MRI L SPINE WO CONTRAST (06/08/2023 4:20 PM EDT) Anatomical Region Laterality Modality Vertebra, Lspine Magnetic Resona nce 06/09/2023 11:5 4 AM EDT Narrative 06/09/2023 11:52 AM EDT EXAM: MRI LUMBAR SPINE WITHOUT CONTRAST HISTORY: stenosis COMPARISON: November 16, 2016. TECHNIQUE: Multiplanar multisequence MRI of the lumbar spine without contrast was performed. FINDINGS: The retroperitoneal tissues are unremarkable in appearance. [...] is facet hypertrophy without thecal sac or subarticular compromise. Mild bilateral foraminal narrowing is present. At [...] is present and there has been posterior decompression. No thecal sac stenosis is present. There is moderate right and moderate to severe left-sided foraminal narrowing, also similar to prior study. IMPRESSION: Postsurgical changes in the lower lumbar spine with advanced degenerative spondylosis appears largely similar to the prior examination. There is no high-grade thecal sac stenosis, but there is multilevel foraminal stenosis in the lower lumbar spine. Procedure Note Thanh Lilly MD - 06/09/2023 EXAM: MRI LUMBAR SPINE WITHOUT CONTRAST HISTORY: stenosis COMPARISON: November 16, 2016. TECHNIQUE: Multiplanar multisequence MRI of the lumbar spine without contrast wasperformed. FINDINGS: The retroperitoneal tissues are unremarkable in appearance. There isleftward curvature of the lumbar spine with its apex at the L3-4 levelwhich is similar to prior imaging. The conus terminates at L1. Signal inthe distal cord is normal. There are postsurgical changes of priorposterior decompression at the L4-5 and L5-S1 levels. In the sagittalplane trace retrolisthesis of L3 on L4 and L4 on L5 is noted. There isdisc space narrowing throughout the mid lumbar spine most notably at L3- 4and L4-5 as well as L5-S1 with associated discogenic endplate changes. Onthe STIR imaging no focal marrow signal abnormalities are evidentelsewhere in the lumbar spine. At L1-2 there is disc bulge without thecal sac or significant subarticularcompromise. Mild bilateral foraminal narrowing is evident. At L2-3 again there is disc bulge and there is facet hypertrophy withoutthecal sac or subarticular compromise. Mild bilateral foraminal narrowingis present. At L3-4 disc bulge and facet degeneration cause right subarticularstenosis greater than left. There is mild thecal sac narrowing and thereis moderate right foraminal narrowing. These findings are largely similarwhen compared to prior imaging. At L4-5 postoperative changes are noted. There is bilateral facetdegeneration without thecal sac stenosis. However, there is severeforaminal narrowing bilaterally at this level which is similar to priorimaging. At L5-S1 marked bilateral facet degeneration is present and there has beenposterior decompression. No thecal sac stenosis is present. There ismoderate right and moderate to severe left-sided foraminal narrowing, alsosimilar to prior study. IMPRESSION: Postsurgical changes in the lower lumbar spine with advanced degenerativespondylosis appears largely similar to the prior examination. There is nohigh-grade thecal sac stenosis, but there is multilevel foraminal stenosisin the lower lumbar spine. Rocio Upton MD RAD MRI-MRA documented in this encounter Visit Diagnoses Diagnosis Degenerative scoliosis Spinal stenosis of lumbar region, unspecified whether neurogenic claudication present documented in this encounter Advance Directives Latest [...] the patient have Health Care Power of Seat Cover Installer? No Full Code 08/14/2010 2:57 PM 08/15/2010 2:24 PM Thi s order reflects the patients wishes and were consensually agreed upon. Care Teams Web Design Intern Relationship Specialty Start Date End Date Zachariah Duarte DO [address] [place] [address] PCP - General Family Medicine 12/20/20 documented as of this encounter
--- OUTSIDE RECORDS SUMMARY | 2023-08-28 08:37 | External Medical Summary | Summary of Care ---
Author Name Unknown Organization [facility] Address [address] [facility] [place] [address] Phone [phone] Care Team Providers Care Marketing Mgr Name Role Phone Zachariah Duarte DO Primary Care Provider Reason for Visit * Reason Onset Date Comments Medication Question 05/20/2023 Encounter Details Date Type Department Care Team Description 05/20/2023 Telephone Pharmacy, [place] [address] [facility] [place] [address] [facility] [address] [facility] [place] [address] Medication Question Allergies Active Allergy Reactions Severity Noted Date Comments Propoxyphene N-Acetaminophen 06/22/2012 N/V Fentanyl Nausea/vomiting 10/15/2009 Oxycodone High 01/21/2023 Other reaction(s): vomiting Oxycodone-Acetaminophen Nausea/vomiting High 010 documented as of this encounter (statuses as of 05/24/2023) Medications Medication Sig Dispensed Refills Start Date [...] 1 Each 0 04/09/2022 Active oxygen IN GASIndications: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 respiratory failure with hypoxia (HCC),Centrilobular emphysema [...] 90 Tablet 2 11/13/2022 4 Active Umeclidinium [place] 62.5 MCG/ACT Inhalation Aerosol Powder Breath Activated [...] 12 Hour (Ranexa)Indications :Coronary artery disease of [place] artery of [place] heart with stable angina pectoris (HCC) TAKE ONE TABLET BY MOUTH TWICE A DAY -- IN THE MORNING AND BEFORE BEDTIME 180 Tablet 3 09/07/2022 4 Active Nortriptyline HCl 75 MG Oral Capsule (Pamelor)Indication s:Diabetic polyneuropathy associated with type 1 diabetes mellitus (HCC) TAKE ONE CAPSULE BY MOUTH AT BEDTIME 90 Capsule 3 07/20/2022 3 Active Isosorbide Mononitrate ER 60 MG Oral [...] as of this encounter (statuses as of 05/24/2023) Active Problems Problem Noted Date Age-related osteopor [...] artery disease of n ative artery of [place] heart with stable angina pectoris 01/30/2017 Overview: More specific. 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 17 Last Assessment & Plan: Cognition at baseline -not tolerating Aricept HTN (hypertension) 09/28/2012 Atherosclerosis of [place] artery of extr emity 06/22/2012 Obstructive sleep apnea 01/13/2010 Overview: ICD-10 update of inactive term Last Assessment & Plan: Compliant with CPAP Old myocardial infarction 10/25/2009 Lumbar disc disorder with myelopathy Overview: Fentanyl patch caused severe nausea and vomiting Failed ultram Oxycodone caused nausea Preglaucoma 08/29/1998 History of TIA (transient ischemic attac k) documented as of this encounter (statuses as of 05/24/2023) Resolved Problems Problem Noted Date Resolved Date [...] as of this encounter (statuses as of 05/24/2023) Immunizations Name Administration Dates Next Due COVID-19 [...] attempted to quit: 04/23/2022 Smokeless Tobacco: Never Comments:2 - 4 cigarettes [...] encounter Miscellaneous Notes * Telephone Encounter - Debbie Figueroa RPh - 05/20/2023 4:01 PM EDT Mr. Oakley completed his annual medication review with our pharmacy team today. During that encounter, the following was noted: This patient is currently prescribed NORTRIPTYLIN CAP 75MG. The [place] [employer] (AGS) Beers Criteria List indicates, with a high level of evidence, use of certain antidepressants in elderly patients is considered high risk. Use of this medication has been associated with an increased risk of anticholinergic side effects, such as sedation, cognitive impairment, weakness, urinary retention, as well as questionable efficacy at lower doses. Given the patient's history of dementia and falls, would you consider discontinuing? If so, you can route back to me and I can discuss with him. documented in this encounter Plan of Treatment Upcoming Encounters Date Type Specialty Care Team Description 05/27/2023 Laboratory Laboratory Processing [facility] [place], [facility] Mobile Home Draw [address] [place] [address] 05/28/2023 [facility] [address] [place] [address] 06/10/2023 [facility] Telephone [facility] Nurse Triage [address] [place] [address] 07/22/2023 Office Visit Sleep Disorders Marnie Hartman DO [address] [place] [address] 03/28/2024 Office Visit Rheumatology Yudi Horowitz CRNP [address] [place] [address] Scheduled Procedures Name Priority Associated Diagnoses Date/Ti me COLONOSCOPY FLEXIBLE PROXIMAL DIAGNOSTIC Recall History of colon polyps Health Maintenance Due Date Last Done Comments COVID-19 Vaccine (6 - Moderna series) 02/17/2022 12/23/2021, 07/24/2021, 07/24/2021, Additional history exists Albumin/Creatinine Ratio 10/20/2022 022, 08/11/2017, 10/31/2015, Additional history exists COLONOSCOPY-EVERY 2 YRS AGES 18-100 11/19/2022 11/19/2020, 11/19/2020, 05/16/2015, Additional history exists Diabetic Foot Exam 02/06/2023 02/06/2022, 0 08/30/2019, 08/18/2018, Additional history exists CKD PHOS USE SMARTSET 24480 07/02/202306/23, 07/01/2021, 03/22/2020 DIABETES-EYE EXAM 07/20/2023 07/20/2022, , 08/26/2020, Additional history exists O2 ASSESSMENT COMPLETED IN PAST YEAR FOR COPD 08/10/2023 08/10/2022 DISCUSS TOBACCO CESSATION (REFER TO SMARTSET #[id number]) 08/26/2023 08/26/2022, 05/27/2022, 02/11/2022, Additional history exists GFR 10/15/2023 04/14/2023, 08/0 02/2023, 12/01/2022, Additional history exists HbA1c 10/15/2023 04/14/2023, 06/23, 02/06/2022, Additional history exists Depression Screening 11/21/2023 11/20/2022 DXA Scan 03/11/2024 03/11/2023 CKD HGB USE SMARTSET [id number] 03/29/202403/29, 03/29/2023, 12/01/2022, Additional history exists DTaP,Tdap,and Td Vaccines (3 - Td or Tdap) 01/11/2028 01/10/2018, 10/03/2012 Pneumococcal Vaccine: 65+ Years Completed 05/14/2015, 09/11/2009, 07/12/2003 Zoster Vaccines Completed 03/22/2020, 08/30/2019 COLONOSCOPY-EVERY 5 YRS AGES 18-100 Discontinued 11/19/2020, 11/19/2020, 05/16/2015, Additional history exists Alpha-1 Antitrypsin Completed 03/11/2022 VITAMIN D LEVEL ONCE IN A LIFETIME-USE SMARTSET# [id number] Completed 03/29/2023, 05/12/2014 Influenza Vaccine (FLU shot) [...] patient have Health Care Power of Medical Corps Officer? No Full Code 08/14/2010 2:57 PM 08/15/2010 2:24 PM Thi s order reflects the patients wishes and were consensually agreed upon. Care Teams Marketing Mgr Relationship Specialty Start Date End Date Zachariah Duarte DO [address] [place] [address] PCP - General Family Medicine 12/20/20 documented as of this encounter
--- OUTSIDE RECORDS SUMMARY | 2023-08-28 08:37 | External Medical Summary | Summary of Care ---
Author Name Unknown Organization [facility] Address [address] [facility] [place] [address] Phone [phone] Care Team Providers Care Hose Wrapper Name Role Phone Zachariah Duarte DO Primary Care Provider [phone] Reason for Visit * Reason Onset Date Comments Medication Question 05/20/2023 Encounter Details Date Type Department Care Team Description 05/20/2023 Telephone Pharmacy, [place] [address] [facility] [place] [address] [facility] [address] [facility] [place] [address] Medication Question Allergies Active Allergy Reactions Severity [...] 1 Each 0 2 Active oxygen IN GASIndications: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 Manager bobbi respiratory failure with hypoxia (HCC),Centrilobular emphysema [...] 180 Tablet 3 3 12/30/19 24 Active Memantine HCl 5 MG Oral Tablet (Namenda)Indication s: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) TAKE ONE TABLET BY MOUTH IN THE MORNING AND ONE TABLET BEFORE BEDTIME 60 Tablet 5 3 12/29/19 24 Active traZODone HCl 100 MG Oral Tablet (Desyrel) TAKE ONE TABLET BY MOUTH AT BEDTIME NEEDED FOR SLEEP 90 Tablet 2 3 11/13/19 24 Active Umeclidinium [place] 62.5 MCG/ACT Inhalation Aerosol Powder Breath Activated (INCRUSE ellipta)Indications :COPD, group B, by GOLD 2017 classification ([facility]) INHALE ONE PUFF BY MOUTH [...] 12 Hour (Ranexa)Indications :Coronary artery disease of [place] artery of [place] heart with stable angina pectoris (HCC) TAKE [...] goal of less than 8.0% ([facility]) Inject 15 Units under the skin in the morning and 15 Units at noon and 15 Units before bedtime. With meals. DISPENSE 5 vials. 0 3 Active Nortriptyline HCl 75 MG Oral Capsule (Pamelor)Indication s:Diabetic polyneuropathy associated with type 1 diabetes mellitus ([facility]) TAKE ONE CAPSULE BY MOUTH AT BEDTIME 90 Capsule 3 2 05/24/20 23 Discontinu ed(Adverse reaction) documented as of this encounter (statuses as [...] artery disease of n ative artery of [place] heart with stable angina pectoris 01/30/2017 Overview: More specific. 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 17 Last Assessment & Plan: Cognition at baseline -not tolerating Aricept HTN (hypertension) 09/28/2012 Atherosclerosis of [place] artery of extr emity 06/22/2012 Obstructive sleep [...] encounter Miscellaneous Notes * Addendum Note - Dominic Figueroa RPh - 05/24/2023 3:58 PM EDTAddended by: DOMINIC FIGUEROA on: 05/24/2023 03:58 PM Modules accepted: Orders * Telephone Encounter - Zachariah Duarte DO - 05/24/2023 11:54 AM EDT Advise patient to discontinue nortriptyline * Telephone Encounter - Dominic Figueroa RPh - 05/20/2023 4:01 PM EDT Mr. Oakley completed his annual medication review with our pharmacy team today. During that encounter, the following was noted: This patient is currently prescribed NORTRIPTYLIN CAP 75MG. The [place] Ger[employer] (AGS) Beers Criteria List indicates, [...] Care Team Description 05/27/2023 Laboratory Laboratory Processing [facility], [facility] Mobile Home Draw [address] [place] [address] 05/28/2023 [facility] [place] [address] [address] [facility] [place] [address] 06/10/2023 Scheduled Telephone [facility] Nurse Triage [address] [place] [address] 07/22/2023 Office Visit Sleep Disorders Marnie Hartman, [address] [place] [address] 03/28/2024 Office Visit Rheumatology Yudi Horowitz CRNP [address] [facility] [address] Scheduled Procedures Name Priority Associated Diagnoses Date/Ti me COLONOSCOPY FLEXIBLE PROXIMAL DIAGNOSTIC Recall History of colon polyps Health Maintenance Due Date Last Done Comments COVID-19 Vaccine (6 - Moderna series) 02/17/2022 12/23/2021, 07/24/2021, 07/24/2021, Additional history exists Albumin/Creatinine Ratio 10/20/20222 022, 08/11/2017, 10/31/2015, Additional history exists COLONOSCOPY-EVERY 2 YRS AGES 18-100 11/19/2022 11/19/2020, 11/19/2020, 05/16/2015, Additional history exists Diabetic Foot Exam 02/06/2023 02/06/2022, 0 08/30/2019, 08/18/2018, Additional history exists CKD PHOS USE SMARTSET 86056 07/02/202306/23, 07/01/2021, 03/22/2020 DIABETES-EYE EXAM 07/20/2023 07/20/2022, , 08/26/2020, Additional history exists O2 ASSESSMENT COMPLETED IN PAST YEAR FOR COPD 08/10/2023 08/10/2022 DISCUSS TOBACCO CESSATION (REFER TO SMARTSET #3291) 08/26/2023 08/26/2022, 05/27/2022, 02/11/2022, Additional history exists GFR 10/15/2023 04/14/2023, 02/2023, 12/01/2022, Additional history exists HbA1c 10/15/2023 04/14/2023, 06/23, 02/06/2022, Additional history exists Depression Screening 11/21/2023 11/20/2022 DXA Scan 03/11/2024 03/11/2023 CKD HGB USE SMARTSET 68006 03/29/202403/29, 03/29/2023, 12/01/2022, Additional history exists DTaP,Tdap,and Td Vaccines (3 - Td or Tdap) 01/11/2028 01/10/2018, 10/03/2012 Pneumococcal Vaccine: 65+ Years Completed 05/14/2015, 09/11/2009, 07/12/2003 Zoster Vaccines Completed 03/22/2020, 08/30/2019 COLONOSCOPY-EVERY 5 YRS AGES 18-100 Discontinued 11/19/2020, 11/19/2020, 05/16/2015, Additional history exists Alpha-1 Antitrypsin Completed 03/11/2022 VITAMIN D LEVEL ONCE IN A LIFETIME-USE SMARTSET# [id number] Completed 03/29/2023, 05/12/2014 Influenza Vaccine (FLU shot) [...] the patient have Health Care Power of Aesthetics Instructor? No Full Code 08/14/2010 2:57 PM 08/15/2010 2:24 PM Thi s order reflects the patients wishes and were consensually agreed upon. Care Teams Hose Wrapper Relationship Specialty Start Date End Date Zachariah Duarte DO [address] [place] [address] PCP - General Family Medicine 12/20/20 documented as of this encounter
--- OUTSIDE RECORDS SUMMARY | 2023-08-28 08:37 | External Medical Summary | Summary of Care ---
Author Name Unknown Organization [facility] Address [address] [facility] [place] [address] Phone [phone] Care Team Providers Care Vehicle Technician Name Role Phone Zachariah Duarte DO Primary Care Provider Reason for Visit * Reason Onset Date Comments Medication Question 05/20/2023 Encounter Details Date Type Department Care Team Description 05/20/2023 Telephone Pharmacy, [place] [address] [facility] [place] [address] [facility] [address] [facility] [place] [address] Medication Question Allergies Active Allergy Reactions Severity [...] 1 Each 0 2 Active oxygen IN GASIndications: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 17 Last Assessment & Plan: Cognition at baseline -not tolerating Aricept HTN (hypertension) 09/28/2012 Atherosclerosis of [place] artery of extr emity 06/22/2012 Obstructive sleep [...] encounter Miscellaneous Notes * Telephone Encounter - Dominic Figueroa RPh - 05/24/2023 3:58 PM EDT Spoke with patient. He will discontinue nortriptyline. Dominic Figueroa RP, PharmD, BCACP Clinical Pharmacist - [facility] 05/24/2023, 3:58 PM * Addendum Note - Dominic Figueroa RPh [...] is currently prescribed NORTRIPTYLIN CAP 75MG. The [place] Ger[employer]s [employer] (AGS) Beers Criteria List indicates, [...] Care Team Description 05/27/2023 Laboratory Laboratory Processing [place], [facility] Mobile Home Draw [address] [place] [address] 05/28/2023 [facility] [address] [facility] [place] [address] 06/10/2023 Scheduled Telephone [facility] Nurse Triage [address] [place] [address] 07/22/2023 Office Visit Sleep Disorders Marnie Hartman DO [address] [place] [address] 03/28/2024 Office Visit Rheumatology [facility] Horowitz [facility] [address] [facility] [address] Scheduled Procedures Name Priority Associated Diagnoses Date/Ti [...] Additional history exists CKD PHOS USE SMARTSET 71208 07/02/2023 11, 07/01/2021, 03/22/2020 DIABETES-EYE EXAM 07/20/2023 07/20/2022, , [...] Scan 03/11/2024 03/11/2023 CKD HGB USE SMARTSET 49257 03/29/202403/29, 03/29/2023, 12/01/2022, Additional history exists DTaP,Tdap,and Td Vaccines (3 - Td or Tdap) 01/11/2028 01/10/2018, 10/03/2012 Pneumococcal Vaccine: 65+ Years Completed 05/14/2015, 09/11/2009, 07/12/2003 Zoster Vaccines Completed 03/22/2020, 08/30/2019 COLONOSCOPY-EVERY 5 YRS AGES 18-100 Discontinued 11/19/2020, 11/19/2020, 05/16/2015, Additional history exists Alpha-1 Antitrypsin Completed 03/11/2022 VITAMIN D LEVEL ONCE IN A LIFETIME-USE SMARTSET# [id number] Completed 03/29/2023, 05/12/2014 Influenza Vaccine (FLU shot) [...] the patient have Health Care Power of Sexer? No Full Code 08/14/2010 2:57 PM 08/15/2010 2:24 PM Thi s order reflects the patients wishes and were consensually agreed upon. Care Teams Vehicle Technician Relationship Specialty Start Date End Date Zachariah Duarte DO [address] [place] [address] PCP - General Family Medicine 12/20/20 documented as of this encounter
--- OUTSIDE RECORDS SUMMARY | 2023-08-28 08:37 | External Medical Summary ---
Author Name Unknown Address Unknown Organization [facility] [place] [address] [place] [id number] Laboratory Report Ordering Provider Test Date Status BRAYAN NICHOLAS 05/27/2023 13:24:16 Final Observation Date Value Abnormality Reference (Units ) Status BUN 05/27/2023 13:24:16 20 6-20 (mg/dL) Final Creatinine 05/27/2023 13:24:16 1.4 Above high normal 0.6-1.2 (mg/dL) Final Glomerular filtration rate/1.73 sq M.predicted [Volume Rate/Area] in Serum, Plasma or Blood by Creatinine-based formula (CKD-EPI) 05/27/2023 13:24:16 53 Below low normal >=60 (mL/min) Final eGFR is calculated based on the CKD-EPI 2020 equation SODIUM 05/27/2023 13:24:16 139 135-146 (m mol/L) Final Potassium 05/27/2023 13:24:16 4.5 3.5-5.1 (m mol/L) Final Cl 05/27/2023 13:24:16 101 98-107 (mm ol/L) Final CO2 05/27/2023 13:24:16 26 22-32 (mmo l/L) Final Anion gap 05/27/2023 13:24:16 12 7-15 (mmol /L) Final Glucose 05/27/2023 13:24:16 83 70-120 (mg /dL) Final Calcium 05/27/2023 13:24:16 9.0 8.4-10.2 ( mg/dL) Final Performing Location [facility] [place] [id number]
--- OUTSIDE RECORDS SUMMARY | 2023-08-28 08:37 | External Medical Summary | Summary of Care ---
Author Name Unknown Organization [facility] Address [address] [facility] [place] [address] Phone [phone] Care Team Providers Care Kickboxing Instructor Name Role Phone Zachariah Duarte DO Primary Care Provider [phone] Reason for Visit * Reason Onset Date Comments Order Request 05/25/2023 Encounter Details Date Type Department Care Team Description 05/25/2023 Telephone Family Practice [facility] [address] [place] [address] Maged Ho CRNP [address] [place] [address] Order Request Allergies Active Allergy Reactions Severity Noted Date Comments Propoxyphene N-Acetaminophen 06/22/2012 N/V Fentanyl Nausea/vomiting 10/15/2009 Oxycodone High 01/21/2023 Other reaction(s): vomiting Oxycodone-Acetaminophen Nausea/vomiting High 010 documented as of this encounter (statuses as of 05/26/2023) Medications Medication Sig Dispensed Refills Start Date [...] 1 Each 0 04/09/2022 Active oxygen IN GASIndications: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 respiratory failure with hypoxia (HCC),Centrilobular [...] 90 Tablet 2 11/13/2022 4 Active Umeclidinium [place] 62.5 MCG/ACT Inhalation Aerosol Powder Breath Activated (INCRUSE ellipta)Indications :COPD, group B, by GOLD 2017 classification ([facility]) INHALE ONE PUFF BY MOUTH EVERY [...] 12 Hour (Ranexa)Indications :Coronary artery disease of [place] artery of [place] heart with stable angina pectoris (HCC) TAKE [...] goal of less than 8.0% ([facility]) Inject 15 Units under the skin in the morning and 15 Units at noon and 15 Units before bedtime. With meals. DISPENSE 5 vials. 0 05/20/2023 Active documented as of this encounter (statuses as of 05/26/2023) Active Problems Problem Noted Date Age-related osteopor [...] artery disease of n ative artery of [place] heart with stable angina pectoris 01/30/2017 Overview: More specific. 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 17 Last Assessment & Plan: Cognition at baseline -not tolerating Aricept HTN (hypertension) 09/28/2012 Atherosclerosis of [place] artery of extr emity 06/22/2012 Obstructive sleep apnea 01/13/2010 Overview: ICD-10 update of inactive term Last Assessment & Plan: Compliant with CPAP Old myocardial infarction 10/25/2009 Lumbar disc disorder with myelopathy Overview: Fentanyl patch caused severe nausea and vomiting Failed ultram Oxycodone caused nausea Preglaucoma 08/29/1998 History of TIA (transient ischemic attac k) documented as of this encounter (statuses as of 05/26/2023) Resolved Problems Problem Noted Date Resolved Date [...] as of this encounter (statuses as of 05/26/2023) Immunizations Name Administration Dates Next Due COVID-19 [...] Notes * Telephone Encounter - Paris Wilkes [facility] - 05/26/2023 4:01 PM EDT Noted - thank you; [facility] to follow-up with [facility] this week regarding home machine INR monitoring application. Thanks, Paris Wilkes PharmD Clinical Pharmacist Centralized Clinical Pharmacy Services ([facility]) ([facility]) [phone] 05/26/2023 4:01 PM * Telephone Encounter - Alfonso Urrutia RN - 05/26/2023 1:16 PM EDT Discussed form with [place] Suárez pharmacist. Per Amber, form is already filled out, but it just needs provider signature. Informed Maged of Kamini's message. Maged signed form. [facility] with [facility]. Please see MyG message from 05/01/2023 re: [facility] formore information. FYI. * Telephone Encounter - ZEYAD Schrader - 05/25/2023 7:24 PM EDT I saw him once post fall 6 months ago. He is following telepharmacy. This form is most appropriated to be filled by [facility]. * Telephone Encounter - Kiara Clarke LPN - 05/25/2023 2:56 PM EDT Provider to address: Patient calling back. Yes, he requested the INR meter and strips. Please complete the form. Reason for Call: Order Request Contact: Telephone Call Contact Type: Information Total Time including non face to face (minutes): 5 * Telephone Encounter - Alfonso Urrutia RN - 05/25/2023 10:47 AM EDT Called, left message for patient to return call to nurse call center. Received fax from [facility] INR Prescription form for home INR monitor and strips. Please confirm if patient requested the home INR testing meter and strips. Form placed in CoPatient's mailbox for review. documented in this encounter Plan of Treatment Upcoming Encounters Date Type Specialty Care Team Description 05/27/2023 Laboratory Laboratory Processing [facility], [facility] Mobile Home Draw [address] [place] [address] 05/28/[address] [address] [place] [address] 06/08/2023 Appointment Radiology 06/10/2023 Scheduled Telephone [facility] Nurse Triage [address] [place] [address] 07/22/2023 Office Visit Sleep Disorders Marnie Hartman DO [address] [place] [address] 03/28/2024 Office Visit Rheumatology Yudi Horowitz CRNP [address] [place] [address] Scheduled Procedures Name Priority Associated Diagnoses Date/Ti me COLONOSCOPY FLEXIBLE PROXIMAL DIAGNOSTIC Recall History of colon polyps Health Maintenance Due Date Last Done Comments Albumin/Creatinine Ratio 10/20/20222 022, 08/11/2017, 10/31/2015, Additional history exists COLONOSCOPY-EVERY 2 YRS AGES 18-100 11/19/2022 11/19/2020, 11/19/2020, 05/16/2015, Additional history exists Diabetic Foot Exam 02/06/2023 02/06/2022, 0 08/30/2019, 08/18/2018, Additional history exists COVID-19 Vaccine ( season) 2023 12/23/2021, 07/24/2021, 07/24/2021, Additional history exists CKD PHOS USE SMARTSET 80041 07/02/202306/23, 07/01/2021, 03/22/2020 DIABETES-EYE EXAM 07/20/2023 07/20/2022, , 08/26/2020, Additional history exists O2 ASSESSMENT COMPLETED IN PAST YEAR FOR COPD 08/10/2023 08/10/2022 DISCUSS TOBACCO CESSATION (REFER TO SMARTSET #3291) 08/26/2023 08/26/2022, 05/27/2022, 02/11/2022, Additional history exists GFR 10/15/2023 04/14/2023, 08/02/2023, 12/01/2022, Additional history exists HbA1c 10/15/2023 04/14/2023, 06/23, 02/06/2022, Additional history exists Depression Screening 11/21/2023 11/20/2022 DXA Scan 03/11/2024 03/11/2023 CKD HGB USE SMARTSET 06143 03/29/202403/29, 03/29/2023, 12/01/2022, Additional history exists DTaP,Tdap,and Td Vaccines (3 - Td or Tdap) 01/11/2028 01/10/2018, 10/03/2012 Pneumococcal Vaccine: 65+ Years Completed 05/14/2015, 09/11/2009, 07/12/2003 Zoster Vaccines Completed 03/22/2020, 08/30/2019 COLONOSCOPY-EVERY 5 YRS AGES 18-100 Discontinued 11/19/2020, 11/19/2020, 05/16/2015, Additional history exists Alpha-1 Antitrypsin Completed 03/11/2022 VITAMIN D LEVEL ONCE IN A LIFETIME-USE SMARTSET# [id number] Completed 03/29/2023, 05/12/2014 Influenza Vaccine (FLU shot) [...] the patient have Health Care Power of Reverberatory Skimmer? No Full Code 08/14/2010 2:57 PM 08/15/2010 2:24 PM Thi s order reflects the patients wishes and were consensually agreed upon. Care Teams Kickboxing Instructor Relationship Specialty Start Date End Date Zachariah Duarte DO [address] [place] [address] PCP - General Family Medicine 12/20/20 documented as of this encounter
--- OUTSIDE RECORDS SUMMARY | 2023-08-28 08:37 | External Medical Summary | Summary of Care ---
Author Name Unknown Organization [facility] Address [address] [facility] [place] [address] Phone [phone] Care Team Providers Care Lead Designer Name Role Phone Zachariah Duarte DO Primary Care Provider Reason for Visit * Reason Onset Date Comments Medication Question 05/20/2023 Encounter Details Date Type Department Care Team Description 05/20/2023 Telephone Pharmacy, [place] [address] [facility] [place] [address] [facility] [address] 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 17 Last Assessment & Plan: Cognition at baseline -not tolerating Aricept HTN (hypertension) 09/28/2012 Atherosclerosis of [place] artery of extr emity 06/22/2012 Obstructive sleep [...] to discontinue nortriptyline * Telephone Encounter - Debbie Figueroa [facility] - 05/20/2023 4:01 PM EDT Mr. Oakley completed his annual medication review with our pharmacy team today. During that encounter, the following was noted: This patient is currently prescribed NORTRIPTYLIN CAP 75MG. The [place] Ger[employer]s [employer] (AGS) Beers Criteria List indicates, [...] Care Team Description 05/27/2023 Laboratory Laboratory Processing [facility], [facility] Mobile [facility] Draw [address] [facility] [address] 05/28/2023 [facility] [address] [facility] [place] [address] 06/10/2023 Scheduled Telephone [facility] Nurse Triage [address] [facility] [place] [address] 07/22/2023 Office Visit Sleep Disorders Marnie Hartman DO [address] [place] [address] 03/28/2024 Office Visit Rheumatology Yudi Horowitz CRNP [address] [facility] [address] Scheduled Procedures Name Priority Associated Diagnoses Date/Ti [...] Additional history exists CKD PHOS USE SMARTSET 30660 07/02/202306/23, 07/01/2021, 03/22/2020 DIABETES-EYE EXAM 07/20/2023 07/20/2022, [...] Scan 03/11/2024 03/11/2023 CKD HGB USE SMARTSET 66980 03/29/202403/29, 03/29/2023, 12/01/2022, Additional history exists DTaP,Tdap,and Td Vaccines (3 - Td or Tdap) 01/11/2028 01/10/2018, 10/03/2012 Pneumococcal Vaccine: 65+ Years Completed 05/14/2015, 09/11/2009, 07/12/2003 Zoster Vaccines Completed 03/22/2020, 08/30/2019 COLONOSCOPY-EVERY 5 YRS AGES 18-100 Discontinued 11/19/2020, 11/19/2020, 05/16/2015, Additional history exists Alpha-1 Antitrypsin Completed 03/11/2022 VITAMIN D LEVEL ONCE IN A LIFETIME-USE SMARTSET# 16667 Completed 03/29/2023, 05/12/2014 Influenza Vaccine (FLU shot) [...] the patient have Health Care Power of Shipping And Receiving Supervisor? No Full Code 08/14/2010 2:57 PM 08/15/2010 2:24 PM Thi s order reflects the patients wishes and were consensually agreed upon. Care Teams Lead Designer Relationship Specialty Start Date End Date Zachariah Duarte DO [address] [place] [address] PCP - General Family Medicine 12/20/20 documented as of this encounter
--- OUTSIDE RECORDS SUMMARY | 2023-08-28 08:37 | External Medical Summary | Summary of Care ---
Author Name Unknown Organization [facility] Address [address] [facility] [place] [address] Phone [phone] Care Team Providers Care Artillery Meteorological Man Name Role Phone Zachariah Duarte DO Primary Care Provider Reason for Visit * Reason Comments Dosage Adjustment Via Phone (anticoag Cl inic) Medication Discussion Encounter Details Date Type Department Care Team Description 05/20/2023 Pharmacy Pharmacy, [place] [address] [facility] [place] [address] [place] [facility] [address] Encounter for medication review*; Type 1 diabetes mellitus with hemoglobin A1c goal of less than 8.0% (HCC) Allergies Active Allergy Reactions Severity Noted [...] Tablet 2 11/14/19 23 024 Active Umeclidinium Essie 62.5 MCG/ACT Inhalation Aerosol Powder Breath Activated (INCRUSE ellipta)Indication s:COPD, group B, by GOLD 2017 classification ([facility]) INHALE ONE PUFF BY MOUTH [...] 12 Hour (Ranexa)Indication s:Coronary artery disease of [place] artery of [place] heart with stable angina pectoris (HCC) TAKE [...] ReliOn 100 UNIT/ML Injection Solution (insulin REGULAR human)Indications: Type 1 diabetes mellitus with hemoglobin A1c goal of less than 8.0% (HCC) Inject 15 Units under the skin in the morning and 15 Units at noon and 15 Units before bedtime. With meals. DISPENSE 5 vials. 0 05/20/20 23 Active insulin REGULAR human (NOVOLIN R RELION) [...] artery disease of n ative artery of [place] heart with stable angina pectoris 01/30/2017 Overview: More specific. 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 17 Last Assessment & Plan: Cognition at baseline -not tolerating Aricept HTN (hypertension) 09/28/2012 Atherosclerosis of [place] artery of extr emity 06/22/2012 Obstructive sleep [...] as of this encounter Progress Notes * Debbie Figueroa, [facility] - 05/20/2023 3:36 PM EDT Images from the original note were not included. PHARMACY MTM PROGRESS NOTE [facility] ([facility]) [address] [facility] [place] [address] Service Delivery Delivery Method: Phone Outcome: CMR Completed Health Profile Current Conditions: COPD, Depression, Diabetes, Heart Disease, Heart Failure, and Other (GERD, atrial flutter, Alzheimer's, HTN) Drug allergies & side effects: Review of patient's allergies indicates: Allergen Reactions Oxycodone Other reaction(s): vomiting Percocet [Oxycodone-Acetaminophen] Nausea/vomiting Darvocet [Propoxyphene N-Acetaminophen] N/V Fentanyl Nausea/vomiting Med List Home Medications Provider Atorvastatin Calcium 80 MG Oral Tablet (Lipitor) Zachariah Duarte DO TAKE ONE TABLET BY MOUTH EVERY DAY Associated Diagnoses: cholesterol CPAP History Per Patient Associated Diagnoses: -- Docusate Sodium 100 MG Oral Tablet History Per Patient Associated Diagnoses: stool softener Furosemide 20 MG Oral Tablet (Lasix) Mauri Ordonez MD TAKE ONE TABLET BY MOUTH EVERY MORNING PLUS ADDITIONAL ONE TABLET TWO DAYS PER WEEK Associated Diagnoses: heart failure/swelling insulin isophane human (NOVOLIN N RELION) 100 UNIT/ML injection Mckinley Wilkes MD INJECT 36 UNITS SUBCUTANEOUSLY AT NOON AND INJECT 25 UNITS AT MIDNIGHT DAILY Associated Diagnoses: blood sugar Insulin Syringe-Needle U-100 (BD INSULIN SYRINGE ULTRAFINE) 31G X 5/16" 0.5 ML MISC Mckinley Wilkes MD Use to inject insulin 5 times daily Associated Diagnoses: Type 1 diabetes mellitus with hemoglobin A1c goal of less than 8.0% ([facility]) Isosorbide Mononitrate ER 60 MG Oral Tablet Extended Release 24 Hour (Imdur) Zachariah Duarte DO TAKE ONE TABLET BY MOUTH TWICE A DAY Associated Diagnoses: blood pressure/heart Magnesium Oxide 400 MG Tablet Mckinley Wilkes MD TAKE 1 TABLET BY MOUTH ONCE A DAY Associated Diagnoses: low magnesium levels Memantine HCl 5 MG Oral Tablet (Namenda) Zachariah Duarte DO TAKE ONE TABLET BY MOUTH IN THE MORNING AND ONE TABLET BEFORE BEDTIME Associated Diagnoses: memory Metoprolol Tartrate 100 MG Oral Tablet (Lopressor) Mauri Ordonez MD TAKE 1 TABLET BY MOUTH IN THE MORNING AND 1 TABLET BEFORE BEDTIME Associated Diagnoses: blood pressure/heart Misc Natural Products (T-RELIEF CBD+13) SUBL History Per Patient Associated Diagnoses: sleep Nebulizer Device Johnathan Hutchinson MD Use with nebulized medications Associated Diagnoses: Chronic respiratory failure with hypoxia (HCC), Centrilobular emphysema (HCC) Nortriptyline HCl 75 MG Oral Capsule (Pamelor) Zachariah Duarte DO TAKE ONE CAPSULE BY MOUTH AT BEDTIME Associated Diagnoses: mood NovoLIN R ReliOn 100 UNIT/ML Injection Solution (insulin REGULAR human) -- Associated Diagnoses: blood sugar ONETOUCH DELICA LANCETS [facility] Mckinley Wilkes MD use up to 4 times daily Associated Diagnoses: DM type 2, goal A1C 7-8 ONETOUCH ULTRA 2 W/DEVICE KIT Mckinley Wilkes MD Associated Diagnoses: DM type 2, goal A1C 7-8 ONETOUCH ULTRA BLUE STRP Mckinley Wilkes MD TEST BLOOD SUGAR 7 TIMES A DAY Associated Diagnoses: DM type 2, goal A1C 7-8 oxygen IN GAS Johnathan Hutchinson MD Use 2 LPM with exertion Patient taking differently: 3 L/min(Oxygen) at bedtime. Use 3 LPM with exertion and at night Associated Diagnoses: Centrilobular emphysema (HCC), Chronic respiratory failure with hypoxia (HCC) Notes: Electronically Signed by: Johnathan Hutchinson MD oxygen IN GAS Johnathan Hutchinson MD 2 LPM by inogen or portable oxygen concentrator with exertion. Use 3 LPM by standing concentrator with sleep Associated Diagnoses: Chronic respiratory failure with hypoxia (HCC), Centrilobular emphysema (HCC) Notes: Electronically Signed by: Johnathan Hutchinson MD Pantoprazole Sodium 40 MG Oral Tablet Delayed Release (Protonix) Zachariah Duarte, DO TAKE ONE TABLET BY MOUTH EVERY DAY Associated Diagnoses: reflux Ranolazine ER 500 MG Oral Tablet Extended Release 12 Hour (Ranexa) Zachariah Duarte, DO TAKE ONE TABLET BY MOUTH TWICE A DAY -- IN THE MORNING AND BEFORE BEDTIME Associated Diagnoses: heart SYRINGE (DISPOSABLE) 5 ML [facility] Mckinley Wilkes MD use as directed for lantus Associated Diagnoses: DM type 2 causing neurological disease (HCC) traZODone HCl 100 MG Oral Tablet (Desyrel) Zachariah Duarte, DO TAKE ONE TABLET BY MOUTH AT BEDTIME NEEDED FOR SLEEP Associated Diagnoses: sleep Tylenol 325 MG Oral Capsule (Acetaminophen) History Per Patient Associated Diagnoses: pain Umeclidinium Essie 62.5 MCG/ACT Inhalation Aerosol Powder Breath Activated (INCRUSE ellipta) Zachariah Duarte DO INHALE ONE PUFF BY MOUTH EVERY DAY IN THE MORNING Associated Diagnoses: COPD/breathing Vitamin D 25 MCG (1000 UT) Oral Tablet History Per Patient Associated Diagnoses: vitamin replacement Vitamin E 1000 UNIT Oral Capsule History Per Patient Associated Diagnoses: vitamin replacement Warfarin Sodium 5 MG Oral Tablet (Coumadin) Zachariah Duarte, DO TAKE ONE TABLET BY MOUTH AT BEDTIME Associated Diagnoses: blood thinner Notes: 2.5mg daily Clopidogrel Bisulfate 75 MG Oral Tablet (pLAVix) Zachariah Duarte, DO TAKE ONE TABLET BY MOUTH EVERY DAY Associated Diagnoses: History of TIA (transient ischemic attack) Notes: pt requested Famotidine 20 MG Oral Tablet (Pepcid) Zachariah Duarte, DO TAKE ONE TABLET BY MOUTH TWO TIMES A DAILY AY NEEDED FOR HEARTBURN Associated Diagnoses: Gastro-esophageal reflux disease without esophagitis insulin REGULAR human (NOVOLIN R RELION) 100 UNIT/ML injection Ludivina Meier PA-C Inject 12 units with breakfast, 10 units with lunch, 15 units with dinner DISPENSE 5 vials Patient taking differently: Inject 15 Units under the skin in the morning and 15 Units at noon and 15 Units before bedtime. With meals. DISPENSE 5 vials. Associated Diagnoses: Type 1 diabetes mellitus with hemoglobin A1c goal of less than 8.0% ([facility]) Ondansetron HCl 4 MG Oral Tablet (Zofran) Zachariah Duarte, DO TAKE ONE TABLET BY MOUTH EVERY 6 HOURS NEEDED FOR NAUSEA. Associated Diagnoses: Gastroparesis Spironolactone 25 MG Oral Tablet (Aldactone) Faby Singleton PA-C Take 1 Tablet by mouth in the morning. Associated Diagnoses: -- Ongoing Comment Yesenia Allen LPN 09/10/2015 11:21 AM Reviewed medications verbally. Shanta Salinas LPN 08/27/2014 Medications reviewed from list 09/10/2015 Aguilar Allen LPN TIPs 1. Why was the service initiated?: Needs Drug Therapy - Statin (Stroke/TIA) Category of TIP: Needs Drug Therapy; Targeted medication or medication class: statin Is the patient already taking this medication/a medication in the referenced medication class? Yes;No Intervention Needed; Patient is already taking the medication 2. Why was the service initiated?: Needs Medication Assessment - Warfarin Category of TIP: Needs Medication Assessment; Targeted medication or medication class: warfarin Is the patient already taking this medication/a medication in the referenced medication class? Yes; What would you like to do with this TIP? Start a Claim for this TIP; What service was provided? Patient consultation What was the outcome of the service? Assessment completed - No issues identified - I educated the patient as outlined in the TIP overview.; Date the outcome was determined: 05/20/2023 Additional notes (optional): Patient is monitored by the [facility] clinic and has regular and routine INR monitoring. Approximate time it took to complete the MTM service: 10 minutes 3. Why was the service initiated?: High Risk Medication - Antidepressant Category of TIP: High Risk Medication; Targeted medication or medication class: nortriptyline Is the patient already taking this medication/a medication in the referenced medication class? Yes; What would you like to do with this TIP? Start a Claim for this TIP; What service was provided? Prescriber consultation What was the outcome of the service? Recommended prescriber discontinue. Awaiting response from provider. Action Plan 1. What type of item is this? Related to a current medication (nortriptyline) Describe the item for the patient takeaway: Nortriptyline safety and effectiveness Describe what the patient should do (for the patient takeaway): Discuss whether there is a better alternative to nortriptyline if needed for mood. Takeaway Service Information Date CMR was completed: 05/20/2023 Who was the recipient of the CMR service: Patient Was the patient in a long filler cigar roller machine care (LTC) facility when the CMR was completed? No Pharmacist's availability for questions: Wednesday-Wednesday 8:00am-4:30pm Takeaway Information Will the Patient Takeaway be sent to the Patient or someone else? Patient Language Template for the Patient Takeaway: Italian Additional notes for the Patient Takeaway (optional): None I attest that I have reviewed and updated the patient's conditions, allergies, and medications to the best of my ability. Patient Access: Is patient utilizing [facility]? Yes Is patient utilizing [email or web address]? Yes Additional Call Notes Time to complete CMR: 20 minutes Reviewed medication list with patient. Counseled on warfarin and importance of monitoring. He has been adherent with this and his most recent INR was at goal. Sent telephone encounter to PCP regarding nortriptyline and risk for adverse effects in this patient population. Patient felt that it was not helping mood much or providing benefit that he felt was significant. Debbie Figueroa [facility] Clinical Pharmacist Centralized Clinical Pharmacy Services (CCPS) 05/20/2023, 3:53 PM documented in this encounter Plan of Treatment Upcoming Encounters Date Type Specialty Care Team Description 05/27/2023 Laboratory Laboratory Processing [facility], [facility] [address] [facility] [address] 05/28/2023 [facility] [address] [facility] [address] 06/08/2023 Appointment Radiology 06/10/2023 Scheduled Telephone [facility] Nurse Triage [address] [place] [address] 07/22/2023 Office Visit Sleep Disorders Marnie Hartman DO [address] [place] [address] 03/28/2024 Office Visit Rheumatology Yudi Horowitz CRNP [address] [place] [address] Scheduled Procedures Name Priority Associated Diagnoses Date/Ti [...] Additional history exists CKD PHOS USE SMARTSET 36080 07/02/202306/23, 07/01/2021, 03/22/2020 DIABETES-EYE EXAM 07/20/2023 07/20/2022, [...] Scan 03/11/2024 03/11/2023 CKD HGB USE SMARTSET 81814 03/29/202403/29, 03/29/2023, 12/01/2022, Additional history exists DTaP,Tdap,and Td Vaccines (3 - Td or Tdap) 01/11/2028 01/10/2018, 10/03/2012 Pneumococcal Vaccine: 65+ Years Completed 05/14/2015, 09/11/2009, 07/12/2003 Zoster Vaccines Completed 03/22/2020, 08/30/2019 COLONOSCOPY-EVERY 5 YRS AGES 18-100 Discontinued 11/19/2020, 11/19/2020, 05/16/2015, Additional history exists Alpha-1 Antitrypsin Completed 03/11/2022 VITAMIN D LEVEL ONCE IN A LIFETIME-USE SMARTSET# [id number] Completed 03/29/2023, 05/12/2014 Influenza Vaccine (FLU shot) [...] as of this encounter Visit Diagnoses Diagnosis Encounter for medication review- Primary Encounter for long-term (current) use of other medications Type 1 diabetes mellitus with hemoglobin A1c goal of less than 8.0% ([facility]) documented in this encounter Advance Directives Latest [...] the patient have Health Care Power of Thermal Technician? No Full Code 08/14/2010 2:57 PM 08/15/2010 2:24 PM Thi s order reflects the patients wishes and were consensually agreed upon. Care Teams Artillery Meteorological Man Relationship Specialty Start Date End Date Zachariah Duarte DO [address] [place] [address] PCP - General Family Medicine 12/20/20 documented as of this encounter
--- OUTSIDE RECORDS SUMMARY | 2023-08-28 08:37 | External Medical Summary | Summary of Care ---
Author Name Unknown Organization [facility] Address [address] [facility] [place] [address] Phone [phone] Care Team Providers Care Counseling Program Leader Name Role Phone Zachariah Duarte DO Primary Care Provider Reason for Visit * Reason Onset Date Comments Medication Question 05/20/2023 Encounter Details Date Type Department Care Team Description 05/20/2023 Telephone Pharmacy, [place] [address] [facility] [place] [address] [facility] [address] [facility] [place] [address] Medication Question Allergies Active Allergy Reactions Severity [...] 1 Each 0 04/09/2022 Active oxygen IN GASIndications:Flexographic Press Plate Setter bobbi respiratory failure with hypoxia (HCC),Centrilobular emphysema [...] 90 Tablet 2 11/13/2022 4 Active Umeclidinium [place] 62.5 MCG/ACT Inhalation Aerosol Powder Breath Activated (INCRUSE ellipta)Indications :COPD, group B, by GOLD 2017 classification ([facility]) INHALE ONE PUFF BY MOUTH [...] of [place] heart with stable angina pectoris (HCC) TAKE [...] goal of less than 8.0% ([facility]) Inject 15 Units under the [...] (hypertension) 09/28/2012 Atherosclerosis of [place] artery of extr emity 06/22/2012 Obstructive sleep [...] nortriptyline * Telephone Encounter - Debbie Figueroa [facility] - 05/20/2023 4:01 PM EDT Mr. Oakley completed his annual medication review with our pharmacy team today. During that encounter, the following was noted: This patient is currently prescribed NORTRIPTYLIN CAP 75MG. The [place] [employer] (AGS) Beers Criteria List indicates, [...] Care Team Description 05/27/2023 Laboratory Laboratory Processing [facility] Draw [address] [facility] [address] 05/28/2023 [facility] [address] [facility] [place] [address] 06/10/2023 Scheduled Telephone [facility] Nurse Triage [address] [facility] [place] [address] 07/22/2023 Office Visit Sleep Disorders Marnie Hartman DO [address] [place] [address] 03/28/2024 Office Visit Rheumatology Yudi Horowitz CRNP [address] [facility] [place] [address] Scheduled Procedures Name Priority Associated Diagnoses Date/Ti [...] Additional history exists CKD PHOS USE SMARTSET 41478 07/02/202306/23, 07/01/2021, 03/22/2020 DIABETES-EYE EXAM 07/20/2023 07/20/2022, [...] Scan 03/11/2024 03/11/2023 CKD HGB USE SMARTSET 22399 03/29/202403/29, 03/29/2023, 12/01/2022, Additional history exists DTaP,Tdap,and Td Vaccines (3 - Td or Tdap) 01/11/2028 01/10/2018, 10/03/2012 Pneumococcal Vaccine: 65+ Years Completed 05/14/2015, 09/11/2009, 07/12/2003 Zoster Vaccines Completed 03/22/2020, 08/30/2019 COLONOSCOPY-EVERY 5 YRS AGES 18-100 Discontinued 11/19/2020, 11/19/2020, 05/16/2015, Additional history exists Alpha-1 Antitrypsin Completed 03/11/2022 VITAMIN D LEVEL ONCE IN A LIFETIME-USE SMARTSET# [id number] Completed 03/29/2023, 05/12/2014 Influenza Vaccine (FLU shot) [...] the patient have Health Care Power of Regional Office Coordinator? No Full Code 08/14/2010 2:57 PM 08/15/2010 2:24 PM Thi s order reflects the patients wishes and were consensually agreed upon. Care Teams Counseling Program Leader Relationship Specialty Start Date End Date Zachariah Duarte DO [address] [place] [address] PCP - General Family Medicine 12/20/20 documented as of this encounter
--- OUTSIDE RECORDS SUMMARY | 2023-08-28 08:37 | External Medical Summary | Summary of Care ---
Author Name Unknown Organization [facility] Address [address] [facility] [place] [address] Phone [phone] Care Team Providers Care Angle Dozer Operator Name Role Phone Zachariah Duarte DO Primary Care Provider Reason for Visit * Reason Comments Dosage Adjustment Via Phone (anticoag Cl inic) Medication Discussion Encounter Details Date Type Department Care Team Description 05/20/2023 Pharmacy Pharmacy, [place] [address] [facility] [place] [address] [place] [facility] [address] [facility] [address] Encounter for medication review*; Type 1 diabetes [...] Tablet 2 11/14/19 23 024 Active Umeclidinium Iva 62.5 MCG/ACT Inhalation Aerosol Powder Breath Activated (INCRUSE ellipta)Indication s:COPD, group B, by GOLD 2017 classification ([facility]) INHALE ONE PUFF BY MOUTH [...] 12 Hour (Ranexa)Indication s:Coronary artery disease of [place] artery of [place] heart with stable angina pectoris (HCC) TAKE [...] Atherosclerosis of [place] artery of extr emity 06/22/2012 Obstructive sleep [...] encounter Progress Notes * Debbie Figueroa, Former[facility] - 05/20/2023 3:36 PM EDT Images from the original note were not included. PHARMACY MTM PROGRESS NOTE [facility] ([facility]PS) [address] [facility] [place] [address] Service Delivery Delivery Method: Phone Outcome: CMR [...] hemoglobin A1c goal of less than 8.0% ([facility]) Isosorbide Mononitrate ER 60 MG Oral Tablet [...] Associated Diagnoses: blood sugar ONETOUCH DELICA LANCETS [facility] Mckinley Wilkes MD use up to 4 [...] Associated Diagnoses: heart SYRINGE (DISPOSABLE) [address] [facility] Mckinley Wilkes MD use as directed for lantus Associated Diagnoses: DM type 2 causing neurological disease (HCC) traZODone HCl 100 MG Oral Tablet (Desyrel) Zachariah Duarte, DO TAKE ONE TABLET BY MOUTH AT BEDTIME NEEDED FOR SLEEP Associated Diagnoses: sleep Tylenol 325 MG Oral Capsule (Acetaminophen) History Per Patient Associated Diagnoses: pain Umeclidinium Iva 62.5 MCG/ACT Inhalation Aerosol Powder Breath Activated [...] hemoglobin A1c goal of less than 8.0% ([facility]) Ondansetron HCl 4 MG Oral Tablet (Zofran) [...] notes (optional): Patient is monitored by the [facility] clinic and has regular and routine INR [...] service: Patient Was the patient in a ad terminal makeup operator care (LTC) facility when the CMR was completed? No Pharmacist's availability for questions: Wednesday-Wednesday 8:00am-4:30pm Takeaway Information Will the Patient Takeaway be sent to the Patient or someone else? Patient Language Template for the Patient Takeaway: Romanian Additional notes for the Patient Takeaway (optional): None I attest that I have reviewed and updated the patient's conditions, allergies, and medications to the best of my ability. Patient Access: Is patient utilizing [facility]? Yes Is patient utilizing [facility]? Yes Additional Call Notes Time to complete [...] he felt was significant. Debbie Figueroa [facility] Clinical Pharmacist Centralized Clinical Pharmacy Services (CCPS) 05/20/2023, 3:53 PM documented in this encounter Plan of Treatment Upcoming Encounters Date Type Specialty Care Team Description 05/27/2023 Laboratory Laboratory Processing [facility], [facility] [address] [facility] [address] 05/28/2023 [facility] [address] [facility] [address] 06/08/2023 Appointment Radiology 06/10/2023 Scheduled Telephone [facility] Nurse Triage [address] [place] [address] 07/22/2023 Office Visit Sleep Disorders Marnie Hartman DO [address] [place] [address] 03/28/2024 Office Visit Rheumatology Yudi Horowitz CRNP [address] [place] [address] Scheduled Procedures Name Priority Associated Diagnoses Date/Ti [...] Additional history exists CKD PHOS USE SMARTSET 45714 07/02/202306/23, 07/01/2021, 03/22/2020 DIABETES-EYE EXAM 07/20/2023 07/20/2022, [...] Scan 03/11/2024 03/11/2023 CKD HGB USE SMARTSET 56995 03/29/202403/29, 03/29/2023, 12/01/2022, Additional history exists DTaP,Tdap,and Td Vaccines (3 - Td or Tdap) 01/11/2028 01/10/2018, 10/03/2012 Pneumococcal Vaccine: 65+ Years Completed 05/14/2015, 09/11/2009, 07/12/2003 Zoster Vaccines Completed 03/22/2020, 08/30/2019 COLONOSCOPY-EVERY 5 YRS AGES 18-100 Discontinued 11/19/2020, 11/19/2020, 05/16/2015, Additional history exists Alpha-1 Antitrypsin Completed 03/11/2022 VITAMIN D LEVEL ONCE IN A LIFETIME-USE SMARTSET# [id number] Completed 03/29/2023, 05/12/2014 Influenza Vaccine (FLU shot) [...] hemoglobin A1c goal of less than 8.0% ([facility]) documented in this encounter Advance Directives Latest [...] patient have Health Care Power of Industrial Engineering Director? No Full Code 08/14/2010 2:57 PM 08/15/2010 2:24 PM Thi s order reflects the patients wishes and were consensually agreed upon. Care Teams Angle Dozer Operator Relationship Specialty Start Date End Date Zachariah Duarte DO [address] [place] [address] PCP - General Family Medicine 12/20/20 documented as of this encounter
--- OUTSIDE RECORDS SUMMARY | 2023-08-28 08:37 | External Medical Summary ---
Author Name Unknown Address Unknown Organization [id number]:[facility] [place] [address] [place] [address] Laboratory Report Ordering Provider Test Date Status GUSTABO GARCIA 05/27/2023 13:24:16 Final Observation Date Value Abnormality Reference (Units ) Status Triglyceride 05/27/2023 13:24:16 123 <=174 ( mg/dL) Final Triglyceride Reference Range s (mg/dL):
<150 Acceptable
150-174 Borderline high
175-499 High
>=500 Very high Cholesterol 05/27/2023 13:24:16 132 <200 (mg /dL) Final Total Cholesterol Reference Ranges (mg/dL):
<200 Desirable
200-239 Borderline high
>=240 High HDL 05/27/2023 13:24:16 41 >39 (mg/dL ) Final HDL Cholesterol Reference Ra nges (mg/dL):
>=60 High (Desirable)
<50 Low (Undesirable) For Females
<40 Low (Undesirable) For Males NON-HDL CHOLESTEROL 05/27/2023 13:24:16 91 <=159 (mg/dL) Final Non-HDL Cholesterol Referenc e Range (mg/dL):
<100 Target level for high risk ASCVD patient
<130 Optimal for general population
130-159 Near optimal for general population
160-189 Borderline High
190-219 High
>=220 Very High LDL, (calculated) 05/27/2023 13:24:16 66 <= 129 (mg/dL) Final LDL Cholesterol Reference Ra nges (mg/dL):
<70 Target level for high risk ASCVD patient
<100 Optimal for general population
100-129 Near optimal for general population
130-159 Borderline high
160-189 High
>=190 Very high Performing Location [facility] [place] [address] [facility] [address]
--- OUTSIDE RECORDS SUMMARY | 2023-08-28 08:37 | External Medical Summary ---
Author Name Unknown Address Unknown Organization [id number]:[facility]ATORY [facility] [place] - [address] [place] [address] Laboratory Report Ordering Provider Test Date Status LUIS ALBERTO CASH 05/27/2023 12:12:19 Final Warfarin Therapy
INR: 2 .0-3.0 conventional anticoagulation
INR: 2.5- 3.5 high intensity anticoagulation Observation Date Value Abnormality Reference (Units ) Status PT 05/27/2023 12:12:19 21.4 Above high normal 11 .6-15.2 (seconds) Final INR 05/27/2023 12:12:19 1.8 Above high normal 0. 8-1.2 Final Performing Location LABORATORY [facility] [place] - [address] [place] [address]
--- OUTSIDE RECORDS SUMMARY | 2023-08-28 08:37 | External Medical Summary | Summary of Care ---
Author Name Unknown Organization [facility] Address [address] [facility] [place] [address] Phone [phone] Care Team Providers Care Cook Specialty Foreign Food Name Role Phone Zachariah Duarte DO Primary Care Provider Reason for Visit * Reason Comments Outpatient Testing Encounter Details Date Type Department Care Team Description 05/27/2023 Laboratory Laboratory, [facility] [address] [facility] [place] [phone] [facility] [address] [facility] [address] Dyslipidemia, goal LDL below 100; Chronic ischemic heart disease; Hypertension, unspecified type; PAD (peripheral artery disease) ([facility]); Chronic kidney disease, stage 3a ([facility]) Allergies Active Allergy Reactions Severity Noted Date [...] for lantus 1 box 11 09/11/2009 Active AuthoreaUCH ULTRA 2 W/DEVICE KITIndications:DM type 2, goal [...] 1 Each 0 04/09/2022 Active oxygen IN GASIndications:Sports Recruiter bobbi respiratory failure with hypoxia (HCC),Centrilobular emphysema [...] 90 Tablet 2 11/13/2022 4 Active Umeclidinium [place] 62.5 MCG/ACT Inhalation Aerosol Powder Breath Activated (INCRUSE ellipta)Indications :COPD, group B, by GOLD 2017 classification ([facility]) INHALE ONE PUFF BY MOUTH [...] 12 Hour (Ranexa)Indications :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 17 Last Assessment & Plan: Cognition at baseline -not tolerating Aricept HTN (hypertension) 09/28/2012 Atherosclerosis of tetlin artery of extr emity 06/22/2012 Obstructive sleep [...] Specialty Care Team Description 05/28/2023 [facility] [address] [facility] [place] [address] 06/08/2023 Appointment Radiology 06/10/2023 [facility] [address] [place] [address] 07/22/2023 Office Visit Sleep Disorders Marnie Hartman, [address] [place] [address] 03/28/2024 Office Visit Rheumatology Yudi Horowitz CRNP [address] [facility] [address] Pending Results Name Type Priority Associated Diagnoses Date /Time LIPID PANEL WITH DIRECT LDL IF TG IS HIGH Lab Routine Dyslipidemia, goal LDL below 100 05/27/2023 1:24 PM EDT MAGNESIUM Lab Routine Chronic ischemic heart disease 05/27/2023 1:24 PM EDT BASIC METABOLIC PANEL Lab Routine Hypertension, unspecified type PAD (peripheral artery disease) (HCC) Chronic kidney disease, stage 3a (HCC) 05/27/2023 1:24 PM EDT Scheduled Procedures Name Priority Associated [...] Additional history exists CKD PHOS USE SMARTSET 10842 07/02/202306/23, 07/01/2021, 03/22/2020 DIABETES-EYE EXAM 07/20/2023 07/20/2022, [...] Scan 03/11/2024 03/11/2023 CKD HGB USE SMARTSET [id number] 03/29/202403/29, 03/29/2023, 12/01/2022, Additional history exists DTaP,Tdap,and Td Vaccines (3 - Td or Tdap) 01/11/2028 01/10/2018, 10/03/2012 Pneumococcal Vaccine: 65+ Years Completed 05/14/2015, 09/11/2009, 07/12/2003 Zoster Vaccines Completed 03/22/2020, 08/30/2019 COLONOSCOPY-EVERY 5 YRS AGES 18-100 Discontinued 11/19/2020, 11/19/2020, 05/16/2015, Additional history exists Alpha-1 Antitrypsin Completed 03/11/2022 VITAMIN D LEVEL ONCE IN A LIFETIME-USE SMARTSET# [id number] Completed 03/29/2023, 05/12/2014 Influenza Vaccine (FLU shot) [...] as of this encounter Visit Diagnoses Diagnosis Dyslipidemia, goal LDL below 100 Other and unspecified hyperlipidemia Chronic ischemic heart disease Chronic ischemic heart disease, unspecified Hypertension, unspecified type PAD (peripheral artery disease) (HCC) Peripheral vascular disease, unspecified Chronic kidney disease, stage 3a (HCC) documented in this encounter Advance Directives [...] the patient have Health Care Power of Cigar Roller? No Full Code 08/14/2010 2:57 PM 08/15/2010 2:24 PM Thi s order reflects the patients wishes and were consensually agreed upon. Care Teams Cook Specialty Foreign Food Relationship Specialty Start Date End Date Zachariah Duarte DO [address] [place] [address] PCP - General Family Medicine 12/20/20 documented as of this encounter
--- OUTSIDE RECORDS SUMMARY | 2023-08-28 08:38 | External Medical Summary ---
Author Name Unknown Address Unknown Organization [id number]:[facility] - [address] [place] [address] Laboratory Report Ordering Provider Test Date Status LUIS ALBERTO CASH 04/29/2023 12:00:00 Final Warfarin Therapy
INR: 2 .0-3.0 conventional anticoagulation
INR: 2.5- 3.5 high intensity anticoagulation Observation Date Value Abnormality Reference (Units ) Status PT 04/29/2023 12:00:00 27.7 Above high normal 11 .6-15.2 (seconds) Final INR 04/29/2023 12:00:00 2.6 Above high normal 0. 8-1.2 Final Performing Location LAB[facility]ATORY [facility] [address] 0 - [address] [place] [address]
--- OUTSIDE RECORDS SUMMARY | 2023-08-28 08:38 | External Medical Summary | Summary of Care ---
Author Name Unknown Organization [facility] Address [address] [facility] [place] [address] Phone [phone] Care Team Providers Care Executive Producer Promos Name Role Phone Zachariah Duarte DO Primary Care Provider Reason for Visit * Reason Comments Dosage Adjustment Via Phone (anticoag Cl inic) Medication Discussion Encounter Details Date Type Department Care Team Description 05/20/2023 Pharmacy Pharmacy, [facility] [address] [facility] [place] [address] [facility] [address] Encounter for medication review*; Type 1 diabetes mellitus with hemoglobin A1c goal of less than 8.0% (HCC) Allergies Active Allergy Reactions Severity Noted Date Comments Propoxyphene N-Acetaminophen 06/22/2012 N/V Fentanyl Nausea/vomiting 10/15/2009 Oxycodone High 01/21/2023 Other reaction(s): vomiting Oxycodone-Acetaminophen Nausea/vomiting High 010 documented as of this encounter (statuses as of 05/20/2023) Medications Medication Sig Dispensed Refills Start Date [...] Tablet 2 11/14/19 23 024 Active Umeclidinium [place] 62.5 MCG/ACT Inhalation Aerosol Powder Breath Activated (INCRUSE ellipta)Indication s:COPD, group B, by GOLD 2017 classification ([facility] [...] 12 Hour (Ranexa)Indication s: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 100 Tablet 3 03/22/20 23 023 Discontinued documented as of this encounter (statuses as of 05/20/2023) Active Problems Problem Noted Date Age-related osteopor [...] artery disease of n ative artery of pokagon heart with stable angina pectoris 01/30/2017 Overview: More specific. 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 17 Last Assessment & Plan: Cognition at baseline -not tolerating Aricept HTN (hypertension) 09/28/2012 Atherosclerosis of pokagon artery of extr emity 06/22/2012 Obstructive sleep apnea 01/13/2010 Overview: ICD-10 update of inactive term Last Assessment & Plan: Compliant with CPAP Old myocardial infarction 10/25/2009 Lumbar disc disorder with myelopathy Overview: Fentanyl patch caused severe nausea and vomiting Failed ultram Oxycodone caused nausea Preglaucoma 08/29/1998 History of TIA (transient ischemic attac k) documented as of this encounter (statuses as of 05/20/2023) Resolved Problems Problem Noted Date Resolved Date [...] as of this encounter (statuses as of 05/20/2023) Immunizations Name Administration Dates Next Due COVID-19 mRNA, LNP-s, No Pre serve, 2-Dose Series (Moderna) 12/23/2021,07/24/2021,01/10/2021,12/13 COVID-19, mRNA, LNP-s, PF, B ooster, 100mcg/0.5mg (Moderna) 07/24/2021 H1N1 2009 Influenza, IM 10/15/2009 Pneumococcal Conjugate Vacc, 13 Valent (Prevnar) 05/14/2015 Pneumococcal Polysaccharide PPV23 (Pneumovax) 09/11/2009 Season Influenza, Quad, PF, Adjuvanted, 65+ Yrs, IM (FLUAD) 05/04/2020 Seasonal Influenza, PF, 6 mo ns & Above, IM , (Flulaval) 06/08/2018,06/16/2017 Seasonal Influenza, Quadriva lent Hd (Fluzone [...] this encounter Progress Notes * Debbie Figueroa, [facility] - 05/20/2023 3:36 PM EDT Images from the original note were not included. PHARMACY MTM PROGRESS NOTE [facility] ([facility]) [address] [address] Service Delivery Delivery Method: Phone Outcome: CMR [...] SYRINGE ULTRAFINE) 31G X 5/16" 0.5 ML [facility] Mckinley Wilkes MD Use to inject insulin 5 times daily Associated Diagnoses: Type 1 diabetes mellitus with hemoglobin A1c goal of less than 8.0% ([facility]) Isosorbide Mononitrate ER 60 MG [...] Associated Diagnoses: blood sugar ONETOUCH DELICA LANCETS [facility] Mckinley Wilkes MD use up to 4 times daily Associated Diagnoses: DM type 2, goal A1C 7-8 ONETOUCH ULTRA 2 W/DEVICE KIT Mckinley Wilkes MD Associated Diagnoses: DM type 2, goal A1C 7-8 ONETOUCH ULTRA BLUE STRP Mckinley Wilkes MD TEST BLOOD SUGAR 7 TIMES A DAY Associated Diagnoses: DM type 2, goal A1C 7-8 oxygen IN GAS Johnathan Hutchinosn MD Use 2 LPM with exertion Patient [...] Oral Tablet Delayed Release (Protonix) Zachariah Duarte, TAKE ONE TABLET BY MOUTH EVERY DAY Associated Diagnoses: reflux Ranolazine ER 500 MG Oral Tablet Extended Release 12 Hour (Ranexa) Zachariah Daurte, DO TAKE ONE TABLET BY MOUTH TWICE A DAY -- IN THE MORNING AND BEFORE BEDTIME Associated Diagnoses: heart SYRINGE (DISPOSABLE) 5 ML MISC Mckinley Wilkes MD use as directed for lantus Associated Diagnoses: DM type 2 causing neurological disease (HCC) traZODone HCl 100 MG Oral Tablet (Desyrel) Zachariah Duarte DO TAKE ONE TABLET BY MOUTH AT BEDTIME NEEDED FOR SLEEP Associated Diagnoses: sleep Tylenol 325 MG Oral Capsule (Acetaminophen) History Per Patient Associated Diagnoses: pain Umeclidinium [place] 62.5 MCG/ACT Inhalation Aerosol Powder Breath Activated (INCRUSE ellipta) Zachariah Duarte DO INHALE ONE PUFF BY MOUTH EVERY DAY IN THE MORNING Associated Diagnoses: COPD/breathing Vitamin D 25 MCG (1000 UT) Oral Tablet History Per Patient Associated Diagnoses: vitamin replacement Vitamin E 1000 UNIT Oral Capsule History Per Patient Associated Diagnoses: vitamin replacement Warfarin Sodium 5 MG Oral Tablet (Coumadin) Zachariah Felicia, DO TAKE ONE TABLET BY MOUTH AT [...] of less than 8.0% ([facility]) Ondansetron HCl 4 MG Oral [...] notes (optional): Patient is monitored by the [facility] and has regular and routine INR [...] service: Patient Was the patient in a senior care care (LTC) facility when the CMR was completed? No Pharmacist's availability for questions: Wednesday-Wednesday 8:00am-4:30pm Takeaway Information Will the Patient Takeaway be sent to the Patient or someone else? Patient Language Template for the Patient Takeaway: Turkish Additional notes for the Patient Takeaway (optional): None I attest that I have reviewed and updated the patient's conditions, allergies, and medications to the best of my ability. Patient Access: Is patient utilizing [facility]? Yes Is patient utilizing [facility]? Yes Additional Call Notes Time to complete [...] that he felt was significant. Debbie Figueroa RPh Clinical Pharmacist [facility] ([facility]) 05/20/2023, 3:53 PM documented in this encounter Plan of Treatment Upcoming Encounters Date Type Specialty Care Team Description 05/21/2023 Office Visit Orthopedic Surgery Rocio Upton MD [address] [place] [id number] 05/27/2023 Laboratory Laboratory Processing [facility] Mobile Home Draw [address] [place] [address] 05/28/2023 Anticoagulation Pharmacy Tele[facility], [facility] [address] [facility] [address] 06/10/2023 Scheduled Telephone [facility] Nurse Triage [address] [place] [address] 07/22/2023 Office Visit Sleep Disorders Marnie Hartman, [address] [place] [address] 03/28/2024 Office Visit Rheumatology Yudi Horowitz CRNP [facility] [place] [address] Scheduled Procedures Name Priority Associated Diagnoses Date/Ti [...] Additional history exists CKD PHOS USE SMARTSET 99672 07/02/202306/23, 07/01/2021, 03/22/2020 DIABETES-EYE EXAM 07/20/2023 07/20/2022, [...] Scan 03/11/2024 03/11/2023 CKD HGB USE SMARTSET [id number] 03/29/202403/29, 03/29/2023, 12/01/2022, Additional history exists DTaP,Tdap,and Td Vaccines (3 - Td or Tdap) 01/11/2028 01/10/2018, 10/03/2012 Pneumococcal Vaccine: 65+ Years Completed 05/14/2015, 09/11/2009, 07/12/2003 Zoster Vaccines Completed 03/22/2020, 08/30/2019 COLONOSCOPY-EVERY 5 YRS AGES 18-100 Discontinued 11/19/2020, 11/19/2020, 05/16/2015, Additional history exists Alpha-1 Antitrypsin Completed 03/11/2022 VITAMIN D LEVEL ONCE IN A LIFETIME-USE SMARTSET# [id number] Completed 03/29/2023, 05/12/2014 Influenza Vaccine (FLU shot) [...] of less than 8.0% ([facility]) documented in this encounter Advance [...] the patient have Health Care Power of Air Hammer Operator? No Full Code 08/14/2010 2:57 PM 08/15/2010 2:24 PM Thi s order reflects the patients wishes and were consensually agreed upon. Care Teams Executive Producer Promos Relationship Specialty Start Date End Date Zachariah Duarte DO [address] [place] [address] PCP - General Family Medicine 12/20/20 documented as of this encounter
--- OUTSIDE RECORDS SUMMARY | 2023-08-28 08:38 | External Medical Summary | Summary of Care ---
Author Name Unknown Organization [facility] Address [address] [facility] [place] [address] Phone [phone] Care Team Providers Care Mine Analyst Name Role Phone Kj Duarteinic Primary Care Provider Encounter Details Date Type Department Care Team Description 05/19/2023 Patient Reported Data Patient Survey Ortho OBERD Allergies Active Allergy Reactions Severity Noted Date Comments Propoxyphene N-Acetaminophen 06/22/2012 N/V Fentanyl Nausea/vomiting 10/15/2009 Oxycodone High 01/21/2023 Other reaction(s): vomiting Oxycodone-Acetaminophen Nausea/vomiting High 010 documented as of this encounter (statuses as of 05/19/2023) Medications Medication Sig Dispensed Refills Start Date [...] Misc Natural Products (T-RELIEF CBD+13) SUBL Place under the tongue. 0 Active insulin isophane human (NOVOLIN N RELION) 100 UNIT/ML injectionIndication s:Type 1 diabetes mellitus with hemoglobin A1c goal of less than 8.0% (HCC) INJECT 36 UNITS SUBCUTANEOUSLY AT NOON AND INJECT 25 UNITS AT MIDNIGHT DAILY 30 mL 0 01/17/2020 Active insulin REGULAR human (NOVOLIN R RELION) 100 UNIT/ML injectionIndication s:Type 1 diabetes mellitus with hemoglobin A1c goal of less than 8.0% (HCC) Inject 12 units with breakfast, 10 units with lunch, 15 units with dinner DISPENSE 5 vials 5 Each 3 12/29/2019 Active Additional Information Patient taking differently: 15 Units Subcutaneous TID(AM/NOON/HS), With meals. DISPENSE 5 vials, Informant: At Discharge, Reported on 07/22/2022 CPAP every night at bedtime . 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 Use 3 LPM by standing concentrator with sleep 1 Each 0 05/19/2022 Active Ondansetron HCl 4 MG Oral Tablet (Zofran)Indications :Gastroparesis TAKE ONE TABLET BY MOUTH EVERY 6 HOURS NEEDED FOR NAUSEA. 15 Tablet 0 07/09/2022 3 Active Docusate Sodium 100 MG Oral Tablet [...] 90 Tablet 2 11/13/2022 4 Active Umeclidinium [place] 62.5 MCG/ACT Inhalation Aerosol Powder Breath Activated (INCRUSE ellipta)Indications :COPD, group B, by GOLD 2017 classification ([facility]) INHALE ONE PUFF BY MOUTH [...] 12 Hour (Ranexa)Indications :Coronary artery disease of flandreau artery of flandreau heart with stable angina pectoris (HCC) TAKE ONE TABLET BY MOUTH TWICE A DAY -- IN THE MORNING AND BEFORE BEDTIME 180 Tablet 3 09/07/2022 4 Active Famotidine 20 MG Oral Tablet (Pepcid)Indications :Gastro-esophageal reflux disease without esophagitis TAKE ONE TABLET BY MOUTH TWO TIMES A DAILY AY NEEDED FOR HEARTBURN 30 Tablet 1 08/03/2022 3 Active Nortriptyline HCl 75 MG Oral [...] 25 MCG (1000 UT) Oral Tablet Take by mouth. 0 Active Vitamin E 1000 UNIT Oral Capsule Take 1 Capsule by mouth in the morning. 0 Active Spironolactone 25 MG Oral Tablet (Aldactone) Take 1 Tablet by mouth in the morning. 100 Tablet 3 03/22/2023 Active documented as of this encounter (statuses as of 05/19/2023) Active Problems Problem Noted Date Age-related osteopor [...] artery disease of n ative artery of flandreau heart with stable angina pectoris 01/30/2017 Overview: More specific. 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 17 Last Assessment & Plan: Cognition at baseline -not tolerating Aricept HTN (hypertension) 09/28/2012 Atherosclerosis of flandreau artery of extr emity 06/22/2012 Obstructive sleep apnea 01/13/2010 Overview: ICD-10 update of inactive term Last Assessment & Plan: Compliant with CPAP Old myocardial infarction 10/25/2009 Lumbar disc disorder with myelopathy Overview: Fentanyl patch caused severe nausea and vomiting Failed ultram Oxycodone caused nausea Preglaucoma 08/29/1998 History of TIA (transient ischemic attac k) documented as of this encounter (statuses as of 05/19/2023) Resolved Problems Problem Noted Date Resolved Date [...] as of this encounter (statuses as of 05/19/2023) Immunizations Name Administration Dates Next Due COVID-19 [...] Orthopedic Surgery Rocio Upton MD [address] [place] [address] 05/27/2023 Laboratory Laboratory Processing [facility], [facility] Mobile Home Draw [address] [place] [address] 05/28/2023 [facility] [address] [place] [address] 06/10/2023 Scheduled Telephone [facility] Nurse Triage [address] [place] [address] 07/22/2023 Office Visit Sleep Disorders Marnie Hartman DO [address] [place] [address] 03/28/2024 Office Visit Rheumatology Yudi Horowitz CRNP [address] [place] [address] Scheduled Procedures Name Priority Associated Diagnoses Date/Ti [...] Additional history exists CKD PHOS USE SMARTSET 38206 07/02/202306/23, 07/01/2021, 03/22/2020 DIABETES-EYE EXAM 07/20/2023 07/20/2022, [...] Scan 03/11/2024 03/11/2023 CKD HGB USE SMARTSET [id number] 03/29/202403/29, 03/29/2023, 12/01/2022, Additional history exists DTaP,Tdap,and Td Vaccines (3 - Td or Tdap) 01/11/2028 01/10/2018, 10/03/2012 Pneumococcal Vaccine: 65+ Years Completed 05/14/2015, 09/11/2009, 07/12/2003 Zoster Vaccines Completed 03/22/2020, 08/30/2019 COLONOSCOPY-EVERY 5 YRS AGES 18-100 Discontinued 11/19/2020, 11/19/2020, 05/16/2015, Additional history exists Alpha-1 Antitrypsin Completed 03/11/2022 VITAMIN D LEVEL ONCE IN A LIFETIME-USE SMARTSET# [id number] Completed 03/29/2023, 05/12/2014 Influenza Vaccine (FLU shot) [...] the patient have Health Care Power of Legal Manager? No Full Code 08/14/2010 2:57 PM 08/15/2010 2:24 PM Thi s order reflects the patients wishes and were consensually agreed upon. Care Teams Mine Analyst Relationship Specialty Start Date End Date Zachariah Duarte DO [address] [place] [address] PCP - General Family Medicine 12/20/20 documented as of this encounter
--- OUTSIDE RECORDS SUMMARY | 2023-08-28 08:38 | External Medical Summary | Summary of Care ---
Author Name Unknown Organization [facility] Address [address] [facility] [place] [place] [address] Phone [phone] Care Team Providers Care Chief Business Officer Name Role Phone Zachariah Duarte DO Primary Care Provider Reason for Visit * Reason Onset Date Comments Test Results 04/29/2023 Encounter Details Date Type Department Care Team Description 04/29/2023 Telephone Cardiology, [facility] [address] [place] [address] Faby Singleton PA-C [address] [place] [id number] Test Results Allergies Active Allergy Reactions Severity Noted Date Comments Propoxyphene N-Acetaminophen 06/22/2012 N/V Fentanyl Nausea/vomiting 10/15/2009 Oxycodone High 01/21/2023 Other reaction(s): vomiting Oxycodone-Acetaminophen Nausea/vomiting High 010 documented as of this encounter (statuses as of 04/29/2023) Medications Medication Sig Dispensed Refills Start Date [...] 1 Each 0 04/09/2022 Active oxygen IN GASIndications: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 Use 3 LPM by standing concentrator with sleep 1 Each 0 05/19/2022 Active Ondansetron HCl 4 MG Oral Tablet (Zofran)Indications :Gastroparesis TAKE ONE TABLET BY MOUTH EVERY 6 HOURS NEEDED FOR NAUSEA. 15 Tablet 0 07/09/2022 3 Active Ipratropium-Albuter ol 0.5-2.5 (3) MG/3ML Inhalation Solution (Duoneb)Indications :Centrilobular emphysema (HCC) INHALE 3 ML (1 VIAL) BY MOUTH VIA NEBULIZER IN THE MORNING AND 3 ML AT NOON THEN 3 ML IN THE EVENING AND 3 ML BEFORE BEDTIME 360 mL 11 04/09/2022 3 Active Docusate Sodium 100 MG Oral [...] 90 Tablet 2 11/13/2022 4 Active Umeclidinium [place] 62.5 MCG/ACT Inhalation Aerosol Powder Breath Activated (INCRUSE ellipta)Indications :COPD, group B, by GOLD 2017 classification ([facility]) INHALE ONE PUFF BY MOUTH [...] 12 Hour (Ranexa)Indications :Coronary artery disease of [place] artery of [place] heart with stable angina pectoris (HCC) [...] as of this encounter (statuses as of 04/29/2023) Active Problems Problem Noted Date Age-related osteopor [...] artery disease of n ative artery of [place] heart with stable angina pectoris 01/30/2017 Overview: More specific. 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 17 Last Assessment & Plan: Cognition at baseline -not tolerating Aricept HTN (hypertension) 09/28/2012 Atherosclerosis of [place] artery of extr emity 06/22/2012 Obstructive sleep apnea 01/13/2010 Overview: ICD-10 update of inactive term Last Assessment & Plan: Compliant with CPAP Old myocardial infarction 10/25/2009 Lumbar disc disorder with myelopathy Overview: Fentanyl patch caused severe nausea and vomiting Failed ultram Oxycodone caused nausea Preglaucoma 08/29/1998 History of TIA (transient ischemic attac k) documented as of this encounter (statuses as of 04/29/2023) Resolved Problems Problem Noted Date Resolved Date [...] as of this encounter (statuses as of 04/29/2023) Immunizations Name Administration Dates Next Due COVID-19 [...] Seasonal Influenza, Quadriva lent Hd (Fluzone Hd) 05/27/2022,06/23/2021 Seasonal Influenza, Quadriva lent, No Preserve, IM [...] quit: 04/23/2022 Smokeless Tobacco: Never Comments:2 - 3 cigarettes pe r month Alcohol Use Standard [...] Telephone Encounter - Faby Singleton PA-C - 04/29/2023 3:43 PM EDT Noted. Await repeat results. Lab order signed. * Telephone Encounter - Lady Merrill CMA - 04/29/2023 12:13 PM EDT Pt and his are aware of results. He is not taking any potassium supplements. (Just magnesium supplements) Aware to stop spironolactone and continue lasix. Repeat BMP order placed. * Telephone Encounter - Lady Merrill CMA - 04/29/2023 11:29 AM EDT ----- Message from ERASMO WilsonC sent at 04/29/2023 10:43 AM EDT ----- Cholesterol well controlled Worsening kidney function and elevated potassium noted on labs. Stop spironolactone. Verify he is not taking any potassium supplements. Continue low dose furosemide for now Repeat BMP in 1 week. documented in this encounter Plan of Treatment Upcoming Encounters Date Type Specialty Care Team Description 04/30[facility] [address] [facility] [address] 05/11/2023 Scheduled Tele[facility] Nurse Triage [address] [place] [address] 05/18/2023 Office Visit Family Medicine Zachariah Duarte, DO [address] [place] [address] 07/22/2023 Office Visit Sleep Disorders Marnie Hartman, [address] [place] [address] 03/28/2024 Office Visit Rheumatology Yudi Horowitz CRNP [address] [facility], [place] [address] Scheduled Orders Name Type Priority Associated Diagnoses Orde r Schedule BASIC METABOLIC PANEL Lab Routine Hypertension, unspecified type PAD (peripheral artery disease) (HCC) Chronic kidney disease, stage 3a (HCC) Expected: 05/06/2023 (Approximate), Expires: 04/29/2024 Scheduled Procedures Name Priority Associated Diagnoses Date/Ti [...] 02/06/2022, 0 08/30/2019, 08/18/2018, Additional history exists Influenza Vaccine (FLU shot) (#1) 2023 05/27/2022, 06/23/2021, 05/04/2020, Additional history exists CKD PHOS USE SMARTSET 26805 07/02/202306/23, 07/01/2021, 03/22/2020 DIABETES-EYE EXAM 07/20/2023 07/20/2022, [...] Scan 03/11/2024 03/11/2023 CKD HGB USE SMARTSET [id number] 03/29/202403/29, 03/29/2023, 12/01/2022, Additional history exists DTaP,Tdap,and Td Vaccines (3 - Td or Tdap) 01/11/2028 01/10/2018, 10/03/2012 Pneumococcal Vaccine: 65+ Years Completed 05/14/2015, 09/11/2009, 07/12/2003 Zoster Vaccines Completed 03/22/2020, 08/30/2019 COLONOSCOPY-EVERY 5 YRS AGES 18-100 Discontinued 11/19/2020, 11/19/2020, 05/16/2015, Additional history exists Alpha-1 Antitrypsin Completed 03/11/2022 VITAMIN D LEVEL ONCE IN A LIFETIME-USE SMARTSET# [id number] Completed 03/29/2023, 05/12/2014 GARDASIL-HPV IMMUNIZATION SERIES Aged Out No longer [...] as of this encounter Visit Diagnoses Diagnosis Hypertension, unspecified type- Primary PAD (peripheral artery disease) (HCC) Peripheral vascular [...] the patient have Health Care Power of Software Firmware Engineer? No Full Code 08/14/2010 2:57 PM 08/15/2010 2:24 PM Thi s order reflects the patients wishes and were consensually agreed upon. Care Teams Chief Business Officer Relationship Specialty Start Date End Date Zachariah Duarte DO [address] [place] [address] PCP - General Family Medicine 12/20/20 documented as of this encounter
--- OUTSIDE RECORDS SUMMARY | 2023-08-28 08:38 | External Medical Summary | Summary of Care ---
Author Name Unknown Organization [facility] Address [address] [facility] [place] [address] Phone [phone] Care Team Providers Care Seal Skinner Name Role Phone Zachariah Duarte DO Primary Care Provider Encounter Details Date Type Department Care Team Description 04/14/2023 Telephone Pulmonary Medicine Ezekiel Rodríguez [address] [place] [id number] Grey Green MD [address] [place] [id number] Allergies Active Allergy Reactions Severity Noted Date Comments Propoxyphene N-Acetaminophen 06/22/2012 N/V Fentanyl Nausea/vomiting 10/15/2009 Oxycodone High 01/21/2023 Other reaction(s): vomiting Oxycodone-Acetaminophen Nausea/vomiting High 010 documented as of this encounter (statuses as of 04/14/2023) Medications Medication Sig Dispensed Refills Start Date End Date Status SYRINGE (DISPOSABLE) 5 ML MISCIndications:DM type 2 causing neurological disease (HCC) use as directed for lantus 1 box 11 09/11/2009 Active AdfacesTOUCH ULTRA 2 W/DEVICE KITIndications:DM type 2, goal A1C 7-8 use as directed 1 Kit 0 03/09/2012 Active AdfacesTOUCH DELICA LANCETS MISCIndications:DM type 2, goal A1C [...] 1 Each 0 04/09/2022 Active oxygen IN GASIndications: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 17 Last Assessment & Plan: Cognition at baseline -not tolerating Aricept HTN (hypertension) 09/28/2012 Atherosclerosis of [place] artery of extr emity 06/22/2012 Obstructive sleep apnea 01/13/2010 Overview: ICD-10 update of inactive term Last Assessment & Plan: Compliant with CPAP Old myocardial infarction 10/25/2009 Lumbar disc disorder with myelopathy Overview: Fentanyl patch caused severe nausea and vomiting Failed ultram Oxycodone caused nausea Preglaucoma 08/29/1998 History of TIA (transient ischemic attac k) documented as of this encounter (statuses as of 04/14/2023) Resolved Problems Problem Noted Date Resolved Date [...] as of this encounter (statuses as of 04/14/2023) Immunizations Name Administration Dates Next Due COVID-19 mRNA, LNP-s, No Pre serve, 2-Dose Series (Moderna) 12/23/2021,07/24/2021,01/10/2021,12/13 Covid-19 Mrna, Lnp-s, No Pre serve, Booster (Moderna) 07/24/2021 H1N1 2009 Influenza, IM 10/15/2009 [...] Miscellaneous Notes * Telephone Encounter - VENICE Alexis - 04/14/2023 1:49 PM EDT Oxygen order entered into TH. documented in this encounter Plan of Treatment Upcoming Encounters Date Type Specialty Care Team Description 04/29/2023 Laboratory Laboratory Processing [facility] Draw [address] [place] [address] 04/30/2023 [facility] [address] [facility] [address] 05/11[facility]2023 [facility] [address] [place] [address] 05/18/2023 Office Visit Family Medicine Zachariah Duarte DO [address] [place] [address] 07/22/2023 Office Visit Sleep Disorders Marnie Hartman, DO [address] [place] [address] 03/28/2024 Office Visit Rheumatology [facility] Horowitz [facility] [address] [facility] [address] Scheduled Procedures Name Priority Associated Diagnoses Date/Ti me COLONOSCOPY FLEXIBLE PROXIMAL DIAGNOSTIC Recall History of colon polyps Health Maintenance Due Date Last Done Comments COVID-19 Vaccine (6 - Moderna series) 02/17/2022 12/23/2021, 07/24/2021, 07/24/2021, Additional history exists Albumin/Creatinine Ratio 10/20/2022 022, 08/11/2017, 10/31/2015, Additional history exists COLONOSCOPY-EVERY 2 YRS AGES 18-100 11/19/2022 11/19/2020, 11/19/2020, 05/16/2015, Additional history exists HbA1c 12/30/2022 07/02/2022, 01/21, 07/01/2021, Additional history exists DIABETES-FOOT EXAM 02/06/2023 02/06/2022, 0 08/30/2019, 08/18/2018, Additional history exists Influenza Vaccine (FLU shot) (#1) 2023 05/27/2022, 06/23/2021, 05/04/2020, Additional history exists CKD PHOS USE SMARTSET 30871 07/02/202306/23, 07/01/2021, 03/22/2020 DIABETES-EYE EXAM 07/20/2023 07/20/2022, , 08/26/2020, Additional history exists O2 ASSESSMENT COMPLETED IN PAST YEAR FOR COPD 08/10/2023 08/10/2022 DISCUSS TOBACCO CESSATION (REFER TO SMARTSET #[id number]) 08/26/2023 08/26/2022, 05/27/2022, 02/11/2022, Additional history exists GFR 10/15/2023 04/14/2023, 08/0 02/2023, 12/01/2022, Additional history exists Depression Screening, Annual for Pts 12 and Over 11/21/2023 11/20/2022 DXA Scan 03/11/2024 03/11/2023 CKD HGB USE SMARTSET 23635 03/29/202403/29, 03/29/2023, 12/01/2022, Additional history exists DTaP,Tdap,and Td Vaccines (3 - Td or Tdap) 01/11/2028 01/10/2018, 10/03/2012 Pneumococcal Vaccine: 65+ Years Completed 05/14/2015, 09/11/2009, 07/12/2003 Zoster Vaccines Completed 03/22/2020, 08/30/2019 COLONOSCOPY-EVERY 5 YRS AGES 18-100 Discontinued 11/19/2020, 11/19/2020, 05/16/2015, Additional history exists Alpha-1 Antitrypsin Completed 03/11/2022 VITAMIN D LEVEL ONCE IN A LIFETIME-USE SMARTSET# [id number] Completed 03/29/2023, 05/12/2014 GARDASIL-HPV IMMUNIZATION SERIES Aged [...] the patient have Health Care Power of Diamond Sizer And Grader? No Full Code 08/14/2010 2:57 PM 08/15/2010 2:24 PM Thi s order reflects the patients wishes and were consensually agreed upon. Care Teams Seal Skinner Relationship Specialty Start Date End Date Zachariah Duarte DO [address] [place] [address] PCP - General Family Medicine 12/20/20 documented as of this encounter
--- OUTSIDE RECORDS SUMMARY | 2023-08-28 08:38 | External Medical Summary | Summary of Care ---
Author Name Unknown Organization [facility] Address [address] [facility] [place] [address] Phone [phone] Care Team Providers Care Lawnmower Repair Mechanic Name Role Phone Zachariah Duarte DO Primary Care Provider [phone] Reason for Visit * Reason Onset Date Comments [facility]: Maintenance 05/11/2023 Encounter Details Date Type Department Care Team Description 05/11/2023 Scheduled Telephone [facility], [facility] [address] [facility] [place] [address] [facility] Nurse Triage [address] 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 respiratory failure with hypoxia (HCC),Centrilobular emphysema [...] 90 Tablet 2 11/13/2022 4 Active Umeclidinium [place] 62.5 MCG/ACT Inhalation Aerosol Powder Breath Activated [...] 12 Hour (Ranexa)Indications :Coronary artery disease of [place] artery of [place] heart with stable angina pectoris (HCC) TAKE [...] as of this encounter (statuses as of 05/11/2023) Active Problems Problem Noted Date Age-related osteopor [...] move") Medication Regimen o Class A - SHAMIAK-EMELINA Combination Inhaler, incruse Self-Management plan o High [...] artery disease of n ative artery of minto heart with stable angina pectoris 01/30/2017 Overview: More specific. 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 17 Last Assessment & Plan: Cognition at baseline -not tolerating Aricept HTN (hypertension) 09/28/2012 Atherosclerosis of minto artery of extr emity 06/22/2012 Obstructive sleep apnea 01/13/2010 Overview: ICD-10 update of inactive term Last Assessment & Plan: Compliant with CPAP Old myocardial infarction 10/25/2009 Lumbar disc disorder with myelopathy Overview: Fentanyl patch caused severe nausea and vomiting Failed ultram Oxycodone caused nausea Preglaucoma 08/29/1998 History of TIA (transient ischemic attac k) documented as of this encounter (statuses as of 05/11/2023) Resolved Problems Problem Noted Date Resolved Date [...] as of this encounter (statuses as of 05/11/2023) Immunizations Name Administration Dates Next Due COVID-19 [...] Telephone Encounter - Margi Etienne RN - 05/11/2023 10:39 AM EDT [facility]oe [facility] Monthly Visit Date: 05/11/2023 Time: 3:39 PM Name: Kaleb Oakley : 1945 Spoke with Kaleb, introduced myself, agreed to telephonic assessment, aware that call is being recorded for training purposes. Problems/Symptoms: HPI: Kaleb reports feeling good today, slight SOB as he just came in from his garage, gettinghis oxygen for him to wear, fair appetite, only eats 2 meals a day, weight at 196lbs, urinating wnl's, denies any open areas/rashes to body Constitutional: no weight loss, no weakness, and no fatigue Resp: no cough, no sputum, no wheezing, and + dyspnea with exertion Cardiac: no chest pain, no orthopnea, no dyspnea on exertion, no PND, no edema, no claudication, and no palpitations GI: no pain, no heartburn, no diarrhea, no constipation, no blood/melena, no nausea, no vomiting Musculoskeletal: no swelling and + back pain Neuro: no weakness, no falling, no numbness or tingling, no vertigo, and + memory loss cannot remember most things per his Medication Reconciliation: Does patient take medications as ordered: Yes, spouse assists with daily administration No refills needed at this time Monthly follow up scheduled Margi Etienne RN 05/11/2023 documented in this encounter Plan of Treatment Upcoming Encounters Date Type Specialty Care Team Description 05/18/2023 Office Visit Family Medicine Zachariah Duarte DO [address] [facility] [place] [address] 05/27/2023 Laboratory [place] [facility] [place] [facility] Home Draw [address] [place] [address] 05/28/2023 [facility] [address] [place] [address] 06/10/2023 Scheduled Telephone [facility] Nurse Triage [address] [facility] [place] [address] 07/22/2023 Office Visit Sleep Disorders Marnie Hartman DO [address] [facility] [place] [address] 03/28/2024 Office Visit Rheumatology Yudi Horowitz CRNP [address] [place] [address] Scheduled Procedures Name Priority Associated Diagnoses Date/Ti [...] Additional history exists CKD PHOS USE SMARTSET 06688 07/02/202306/23, 07/01/2021, 03/22/2020 DIABETES-EYE EXAM 07/20/2023 07/20/2022, [...] Scan 03/11/2024 03/11/2023 CKD HGB USE SMARTSET 12526 03/29/202403/29, 03/29/2023, 12/01/2022, Additional history exists DTaP,Tdap,and Td Vaccines (3 - Td or Tdap) 01/11/2028 01/10/2018, 10/03/2012 Pneumococcal Vaccine: 65+ Years Completed 05/14/2015, 09/11/2009, 07/12/2003 Zoster Vaccines Completed 03/22/2020, 08/30/2019 COLONOSCOPY-EVERY 5 YRS AGES 18-100 Discontinued 11/19/2020, 11/19/2020, 05/16/2015, Additional history exists Alpha-1 Antitrypsin Completed 03/11/2022 VITAMIN D LEVEL ONCE IN A LIFETIME-USE SMARTSET# [id number] Completed 03/29/2023, 05/12/2014 GARDASIL-HPV IMMUNIZATION SERIES Aged [...] the patient have Health Care Power of Family Coach? No Full Code 08/14/2010 2:57 PM 08/15/2010 2:24 PM Thi s order reflects the patients wishes and were consensually agreed upon. Care Teams Lawnmower Repair Mechanic Relationship Specialty Start Date End Date Zachariah Duarte DO [address] [place] [address] PCP - General Family Medicine 12/20/20 documented as of this encounter
--- OUTSIDE RECORDS SUMMARY | 2023-08-28 08:38 | External Medical Summary | Summary of Care ---
Author Name Unknown Organization [facility] Address [address] [facility] [place] [address] Phone [phone] Care Team Providers Care Buckle Stringer Name Role Phone Zachariah Duarte DO Primary Care Provider [phone] Reason for Visit * Reason Comments Dosage Adjustment Via Phone (anticoag Cl inic) Medication Discussion Encounter Details Date Type Department Care Team Description 05/20/2023 Pharmacy Pharmacy, [facility] [address] [facility] [place] [address] [facility] [address] [facility] [address] [address] Encounter for medication review*; Type 1 diabetes mellitus with hemoglobin A1c goal of less than 8.0% (HCC) Allergies Active Allergy Reactions Severity Noted Date Comments Propoxyphene N-Acetaminophen 06/22/2012 N/V Fentanyl Nausea/vomiting 10/15/2009 Oxycodone High 01/21/2023 Other reaction(s): vomiting Oxycodone-Acetaminophen Nausea/vomiting High 010 documented as of this encounter (statuses as of 05/23/2023) Medications Medication Sig Dispensed Refills Start Date [...] Tablet 2 11/14/19 23 024 Active Umeclidinium [place] 62.5 MCG/ACT Inhalation Aerosol Powder Breath Activated (INCRUSE ellipta)Indication s:COPD, group B, by GOLD 2017 classification ([facility]) INHALE ONE PUFF BY MOUTH EVERY [...] 12 Hour (Ranexa)Indication s:Coronary artery disease of [place] artery of [place] heart with stable angina pectoris (HCC) TAKE [...] goal of less than 8.0% ([facility]) Inject 12 units with breakfast, 10 units [...] as of this encounter (statuses as of 05/23/2023) Active Problems Problem Noted Date Age-related osteopor [...] artery disease of n ative artery of [place] heart with stable angina pectoris 01/30/2017 Overview: More specific. 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 17 Last Assessment & Plan: Cognition at baseline -not tolerating Aricept HTN (hypertension) 09/28/2012 Atherosclerosis of [place] artery of extr emity 06/22/2012 Obstructive sleep apnea 01/13/2010 Overview: ICD-10 update of inactive term Last Assessment & Plan: Compliant with CPAP Old myocardial infarction 10/25/2009 Lumbar disc disorder with myelopathy Overview: Fentanyl patch caused severe nausea and vomiting Failed ultram Oxycodone caused nausea Preglaucoma 08/29/1998 History of TIA (transient ischemic attac k) documented as of this encounter (statuses as of 05/23/2023) Resolved Problems Problem Noted Date Resolved Date [...] as of this encounter (statuses as of 05/23/2023) Immunizations Name Administration Dates Next Due COVID-19 [...] at Date Recorded Male 11/20/2022 1:24 PM EDT Job Start Date Occupation Industry [...] this encounter Progress Notes * Debbie Figueroa, [facility] - 05/20/2023 3:36 PM EDT Images from the original note were not included. PHARMACY MTM PROGRESS NOTE [facility] ([facility]) [phone] [facility] [address] Service Delivery Delivery Method: Phone Outcome: CMR [...] goal of less than 8.0% ([facility]) Isosorbide Mononitrate ER 60 MG Oral [...] Associated Diagnoses: blood sugar ONETOUCH DELICA LANCETS [facility] M[facility]inley Wilkes MD use up to 4 [...] Associated Diagnoses: heart SYRINGE (DISPOSABLE) 5 ML [facility] Mckinley Wilkes MD use as directed for lantus Associated Diagnoses: DM type 2 causing neurological disease (HCC) traZODone HCl 100 MG Oral Tablet (Desyrel) Zachariah Duarte, DO TAKE ONE TABLET BY MOUTH AT BEDTIME NEEDED FOR SLEEP Associated Diagnoses: sleep Tylenol 325 MG Oral Capsule (Acetaminophen) History Per Patient Associated Diagnoses: pain Umeclidinium [place] 62.5 MCG/ACT Inhalation Aerosol Powder Breath Activated [...] goal of less than 8.0% ([facility]) Ondansetron HCl 4 MG Oral Tablet [...] notes (optional): Patient is monitored by the [facility] clinic and has regular and routine INR [...] service: Patient Was the patient in a longterm care (LTC) facility when the CMR was completed? No Pharmacist's availability for questions: Wednesday-Wednesday 8:00am-4:30pm Takeaway Information Will the Patient Takeaway be sent to the Patient or someone else? Patient Language Template for the Patient Takeaway: Urdu Additional notes for the Patient Takeaway (optional): None I attest that I have reviewed and updated the patient's conditions, allergies, and medications to the best of my ability. Patient Access: Is patient utilizing [facility]? Yes Is patient utilizing [facility]? Yes Additional Call Notes Time to complete [...] that he felt was significant. Debbie Figueroa [facility] Clinical Pharmacist [facility] ([facility]) 05/20/2023, 3:53 PM documented in this encounter Plan of Treatment Upcoming Encounters Date Type Specialty Care Team Description 05/27/2023 Laboratory Laboratory Processing [facility], [facility] Mobile Home Draw [address] [place] [address] 05/28/2023 [facility] [address] [facility] [place] [address] 06/10/2023 [facility]uled [facility]phone [facility] Nurse Triage [address] [place] [address] 07/22/2023 Office Visit Sleep Disorders Marnie Hartman DO [address] [place] [address] 03/28/2024 Office Visit Rheumatology Yudi Horowitz CRNP [address] [address] Scheduled Procedures Name Priority Associated Diagnoses Date/Ti [...] Additional history exists CKD PHOS USE SMARTSET 57975 07/02/2023 11, 07/01/2021, 03/22/2020 DIABETES-EYE EXAM 07/20/2023 [...] Scan 03/11/2024 03/11/2023 CKD HGB USE SMARTSET [id number] 03/29/202403/29, 03/29/2023, 12/01/2022, Additional history exists DTaP,Tdap,and Td Vaccines (3 - Td or Tdap) 01/11/2028 01/10/2018, 10/03/2012 Pneumococcal Vaccine: 65+ Years Completed 05/14/2015, 09/11/2009, 07/12/2003 Zoster Vaccines Completed 03/22/2020, 08/30/2019 COLONOSCOPY-EVERY 5 YRS AGES 18-100 Discontinued 11/19/2020, 11/19/2020, 05/16/2015, Additional history exists Alpha-1 Antitrypsin Completed 03/11/2022 VITAMIN D LEVEL ONCE IN A LIFETIME-USE SMARTSET# [id number] Completed 03/29/2023, 05/12/2014 Influenza Vaccine (FLU shot) [...] A1c goal of less than 8.0% (HCC) documented in this encounter Advance Directives [...] the patient have Health Care Power of Chemist Instrumentation? No Full Code 08/14/2010 2:57 PM 08/15/2010 2:24 PM Thi s order reflects the patients wishes and were consensually agreed upon. Care Teams Buckle Stringer Relationship Specialty Start Date End Date Zachariah Duarte DO [address] [place] [address] PCP - General Family Medicine 12/20/20 documented as of this encounter
--- OUTSIDE RECORDS SUMMARY | 2023-08-28 08:38 | External Medical Summary | Summary of Care ---
Author Name Unknown Organization [facility] Address [address] [facility] [place] [address] Phone [phone] Care Team Providers Care Counter Clerk [employer] Name Role Phone Zachariah Duarte DO Primary Care Provider Reason for Referral * Precert (Within 10 days (routine)) - Pending Review Specialty Diagnoses / Procedures Referred By Tito t Referred To Contact Radiology Diagnoses Degenerative scoliosis Spinal stenosis of lumbar region, unspecified whether neurogenic claudication present Procedures MRI L SPINE WO Rocio Murillo MD [address] [place] [id number] Referral ID Status Reason Start Date Expiration Date V isits Requested Visits Authorized [id number] Pending Review 05/28/2023 999 999 Reason for Visit * Reason Comments NEW PATIENT Lumbar spine stenosi s * Evaluate & Treat - Unlimited Visits (Within 10 days (routine)) - Authorized Specialty Diagnoses / Procedures Referred By Tito zaidi Referred To Contact Neuro/Ortho Surgery - Spine. / Neurological Surgery Diagnoses Spinal stenosis of lumbar region with neurogenic claudication Zachariah Duarte DO [address] [place] [address] Referral ID Status Reason Start Date Expiration Date Visits Requested Visits Authorized [id number] Authorized Specialty Services Required 05/18/[phone] Encounter Details Date Type Department Care Team Description 05/21/2023 Office Visit Orthopaedics Spine Surgery, [place] [address] [place] [id number] Rocio Upton MD [address] [place] [address] Degenerative scoliosis*; Spinal stenosis of lumbar region, unspecified whether neurogenic claudication present; DDD (degenerative disc disease), lumbar Allergies Active Allergy Reactions Severity Noted Date Comments Propoxyphene N-Acetaminophen 06/22/2012 N/V Fentanyl Nausea/vomiting 10/15/2009 Oxycodone High 01/21/2023 Other reaction(s): vomiting Oxycodone-Acetaminophen Nausea/vomiting High 010 documented as of this encounter (statuses as of 05/21/2023) Medications Medication Sig Dispensed Refills Start Date End Date Status SYRINGE (DISPOSABLE) 5 ML MISCIndications:DM type 2 causing neurological disease (HCC) use as directed for lantus 1 box 11 09/11/2009 Active ONETOUCH ULTRA 2 W/DEVICE KITIndications:DM type 2, goal A1C 7-8 use as directed 1 Kit 0 03/09/2012 Active Gizmo.comTOUCH DELOSCAR LANCETS MISCIndications:DM type 2, goal A1C [...] 1 Each 0 04/09/2022 Active oxygen IN GASIndications: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 respiratory failure with hypoxia (HCC),Centrilobular [...] 90 Tablet 2 11/13/2022 4 Active Umeclidinium [place] 62.5 MCG/ACT Inhalation Aerosol Powder Breath Activated [...] 12 Hour (Ranexa)Indications :Coronary artery disease of [place] artery of [place] heart with stable angina pectoris (HCC) TAKE [...] as of this encounter (statuses as of 05/21/2023) Active Problems Problem Noted Date Age-related osteopor [...] disturbance 10/26/2022 Severe obesity (BMI 35.0-39.9) with sirnivas rbidity 08/26/2022 COPD, group B, by GOLD [...] artery disease of n ative artery of [place] heart with stable angina pectoris 01/30/2017 Overview: More specific. 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 17 Last Assessment & Plan: Cognition at baseline -not tolerating Aricept HTN (hypertension) 09/28/2012 Atherosclerosis of [place] artery of extr emity 06/22/2012 Obstructive sleep apnea 01/13/2010 Overview: ICD-10 update of inactive term Last Assessment & Plan: Compliant with CPAP Old myocardial infarction 10/25/2009 Lumbar disc disorder with myelopathy Overview: Fentanyl patch caused severe nausea and vomiting Failed ultram Oxycodone caused nausea Preglaucoma 08/29/1998 History of TIA (transient ischemic attac k) documented as of this encounter (statuses as of 05/21/2023) Resolved Problems Problem Noted Date Resolved Date [...] as of this encounter (statuses as of 05/21/2023) Immunizations Name Administration Dates Next Due COVID-19 [...] Sign Reading Time Taken Comments Blood Pressure - - Pulse - - Temperature - - Respiratory Rate - - Oxygen Saturation - - Inhaled Oxygen Concentration - - Weight 89.8 kg (198 lb) 05/21/2023 1:15 PM EDT Height 160 cm (5' 3") 05/21/2023 1:15 PM EDT Body Mass Index 35.07 05/21/2023 1:15 PM EDT documented in this encounter Functional [...] as of this encounter Progress Notes * Rocio Upton MD - 05/21/2023 1:33 PM EDT Kaleb Renee Oakley 77 year old male [id number] I have seen, examined, and formulated the plan for Kaleb Oakley. HPI: This patient is here for primary complaints of axial back pain he reports that the back pain has been going on since 2003. He reports that he has tried multiple treatments for his back pain includingpain management chiropractic manipulations as well as injections. His last injection was multiple years ago. The patient reports that for a very long time multiple treatments were tried for his back pain including use off strong narcotic medications like oxycodone as well as Percocet as well as fentanyl. Currently is managing his pain with Tylenol The patient in addition to back pain also reports that his legs feel hot tingling and rubbery when he walks. Also note the patient has multiple medical comorbidities he is a known diabetic with a hemoglobin A1c of 7 which was done on April 14, 2023 the patient also reports that he is currently on Coumadin for his ongoing vascular issues he has multiple cardiac stents as well as multiple vascularstents in his lower extremities he saw Dr. Lara his vascular surgeon couple of months ago and at that point he was told there is nothing else that they could do from vascular surgery perspective asfar as his legs is concerned there was obviously a thought that this back pain in his leg issues were secondary to neurogenic claudication. He does not have any bowel or bladder complaints the patient reports that he is not really think about an idea for spine surgery. Also note currently his only treatment has involved Tylenol and chiropractic manipulations he is not tried any other conservative treatment in the recent past. He is a history of prior lumbar spine surgery this was done in 2012 which was a previous laminectomy done at an outside hospital. He reports that he went back to his surgeon after his surgery becauseof ongoing back pain issues and he was told that surgery would not have helped his back pain. ROS: Denies unexpected weight changes, nightsweats, fever, fatigue, chills, headaches, dizziness, visualchanges, hearing changes, sleep apnea, cough, shortness of breath, chest pain, palpitations, abdominal pain, nausea, vomiting, diarrhea, constipation, fecal incontinence, blood in stool, blood in urine, urinary incontinence, rashes, bruising, changes in moles, depression, anxiety, bipolar disorder,stress. PHYSICAL EXAM: He has grossly intact neurovascular exam as far as lower extremities are concerned. Changes of dystrophic variety are seen in his legs secondary to his vascular issues. He has stiffness in his lumbarspine as expected given the amount of arthritis that he has. IMAGING: X-rays show evidence of degenerative scoliosis with a curvature to the left. Multilevel lumbar degenerative changes. Calcification of the abdominal aorta. Retrolisthesis of L3 over L4 and L4 over L5.Prior laminectomy defect at L5-S1. Mild bilateral hip arthritis. DEXA scan of the lumbar spine shows a falsely value of a T-score of +1.7. T- score of the hip is -1.0 CLINICAL IMPRESSION: Lumbar post laminectomy syndrome Prior L5-S1 laminectomy Lumbar degenerative scoliosis To rule out lumbar spinal stenosis Vascular claudication status post multiple stents lower extremities Known diabetic on Coumadin ASSESSMENT / PLAN: At this point we discussed treatment options in great detail. There is a possibility that his leg issues are coming from spinal stenosis. He is interested in exploring this further. I discussed getting an MRI of the lumbar spine. Offload I had a izabel discussion with the family about the diagnosis of degenerative scoliosis. I discussed that I can not guarantee back pain relief with any surgery that I may offer in the future. Surgery offered will be for leg pain relief. The patient is not too thrilled about surgical options at this moment. We will contact him after the MRI results are available. Perhaps we can think about injections in his spine for pain relief. Rocio Upton MD 05/21/2023 1:33 PM This note was completed, in part, utilizing voice recognition software. Grammatical errors, random word insertions, pronoun errors and incomplete sentences are an occasional consequence of this system due to software limitations, ambient noise and hardware issues. Any formal questions or concerns about the content, text or information contained within the body of this dictation should be directlyaddressed to the author for clarification. documented in this encounter Plan of Treatment Upcoming Encounters Date Type Specialty Care Team Description 05/27/2023 Laboratory Laboratory Processing [facility] Mobile Home Draw [address] [place] [address] 05/28/2023 [facility] [address] [facility] [place] [address] 06/10/2023 Scheduled Telephone [facility] Nurse Triage [address] [place] [address] 07/22/2023 Office Visit Sleep Disorders Marnie Hartman, DO [address] [place] [address] 03/28/2024 Office Visit Rheumatology Yudi Horowitz CRNP [facility] [address] Scheduled Orders Name Type Priority Associated Diagnoses Orde r Schedule MRI L SPINE WO CONTRAST Medical Imaging Routine Degenerative scoliosis Spinal stenosis of lumbar region, unspecified whether neurogenic claudication present Expected: 05/28/2023 (Approximate), Expires: 06/20/2024 Scheduled Procedures Name Priority Associated Diagnoses Date/Ti [...] Additional history exists CKD PHOS USE SMARTSET 20362 07/02/202306/23, 07/01/2021, 03/22/2020 DIABETES-EYE EXAM 07/20/2023 07/20/2022, [...] Scan 03/11/2024 03/11/2023 CKD HGB USE SMARTSET [id number] 03/29/202403/29, 03/29/2023, 12/01/2022, Additional history exists DTaP,Tdap,and Td Vaccines (3 - Td or Tdap) 01/11/2028 01/10/2018, 10/03/2012 Pneumococcal Vaccine: 65+ Years Completed 05/14/2015, 09/11/2009, 07/12/2003 Zoster Vaccines Completed 03/22/2020, 08/30/2019 COLONOSCOPY-EVERY 5 YRS AGES 18-100 Discontinued 11/19/2020, 11/19/2020, 05/16/2015, Additional history exists Alpha-1 Antitrypsin Completed 03/11/2022 VITAMIN D LEVEL ONCE IN A LIFETIME-USE SMARTSET# [id number] Completed 03/29/2023, 05/12/2014 Influenza Vaccine (FLU shot) [...] as of this encounter Visit Diagnoses Diagnosis Degenerative scoliosis- Primary Spinal stenosis of lumbar region, unspecified whether neurogenic claudication present DDD (degenerative disc disease), lumbar Degeneration of lumbar or lumbosacral intervertebral disc documented in this encounter Advance Directives Latest [...] the patient have Health Care Power of Patient Admitting Representative? No Full Code 08/14/2010 2:57 PM 08/15/2010 2:24 PM Thi s order reflects the patients wishes and were consensually agreed upon. Care Teams Counter Clerk [employer] Relationship Specialty Start Date End Date Zachariah Duarte DO [address] [place] [address] PCP - General Family Medicine 12/20/20 documented as of this encounter
--- OUTSIDE RECORDS SUMMARY | 2023-08-28 08:38 | External Medical Summary | Summary of Care ---
Author Name Unknown Organization [facility] Address [address] [facility] [place] [address] Phone [phone] Care Team Providers Care Lumber Marker Name Role Phone Zachariah Duarte DO Primary Care Provider Reason for Visit * Reason Comments Dosage Adjustment Via Phone (anticoag Cl inic) Encounter Details Date Type Department Care Team Description 04/30/2023 Anticoagulation Pharmacy Call Center [address] [place] [address] [facility] [address] [facility] [place] [address] Anticoagulation management encounter* Allergies Active Allergy Reactions Severity Noted Date Comments Propoxyphene N-Acetaminophen 06/22/2012 N/V Fentanyl Nausea/vomiting 10/15/2009 Oxycodone High 01/21/2023 Other reaction(s): vomiting Oxycodone-Acetaminophen Nausea/vomiting High 010 documented as of this encounter (statuses as of 04/30/2023) Medications Medication Sig Dispensed Refills Start Date [...] 1 Each 0 04/09/2022 Active oxygen IN GASIndications: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 17 Last Assessment & Plan: Cognition at baseline -not tolerating Aricept HTN (hypertension) 09/28/2012 Atherosclerosis of [place] artery of extr emity 06/22/2012 Obstructive sleep apnea 01/13/2010 Overview: ICD-10 update of inactive term Last Assessment & Plan: Compliant with CPAP Old myocardial infarction 10/25/2009 Lumbar disc disorder with myelopathy Overview: Fentanyl patch caused severe nausea and vomiting Failed ultram Oxycodone caused nausea Preglaucoma 08/29/1998 History of TIA (transient ischemic attac k) documented as of this encounter (statuses as of 04/30/2023) Resolved Problems Problem Noted Date Resolved Date [...] as of this encounter (statuses as of 04/30/2023) Immunizations Name Administration Dates Next Due COVID-19 [...] as of this encounter Progress Notes * SHIKHA Garcia Tech - 04/30/2023 10:30 AM EDT Contacts Type Contact Phone/Fax 04/30/2023 10:29 AM EDT Phone (Outgoing) Kaleb Oakley (Self) [phone] (H) Left Message Subjective PT/INR results, Coumadin dose instructions, and next PT/INR date communicated as noted by Pharmacist: Yes SHIKHA Garcia Tech 04/30/2023, 10:30 AM * Paris Wil[facility] - 04/30/2023 8:42 AM EDT Coumadin Clinic (region specific) Objective Current Warfarin Dose As of 04/30/2023 Warfarin maintenance plan: 2.5 mg (5 mg x 0.5) every day INR Result As of 04/30/2023 INR goal: 2.0-3.0 INR used for dosin.6 (04/29/2023) Assessment & Plan Warfarin Plan As of 04/30/2023 Full warfarin instructions: 2.5 mg every day No change documented: Paris Wilkes RPh Next INR check: 05/27/2023 Repeat PT/INR in 4 week(s) Weekly dose: not changed Additional Dosing Information: Description [facility] Tech to contact patient with dose instructions as noted. Paris Wilkes RPh 04/30/2023, 8:42 AM documented in this encounter Plan of Treatment Upcoming Encounters Date Type Specialty Care Team Description 05/11/2023 Scheduled Telephone [facility] [place] [address] [place] [address] 05/18/2023 Office Visit Family Medicine Zachariah Duarte, [address] [place] [address] 05/27/2023 Laboratory Laboratory Processing [facility] Mobile Home Draw [address] [place] [address] 05/28/2023 [facility] [address] [place] [address] 07/22/2023 Office Visit Sleep Disorders Marnie Hartman DO [address] [place] [address] 03/28/2024 Office Visit Rheumatology Yudi Horowitz CRNP [address] [facility], [place] [address] Scheduled Procedures Name Priority Associated Diagnoses Date/Ti [...] Additional history exists CKD PHOS USE SMARTSET 47594 07/02/202306/23, 07/01/2021, 03/22/2020 DIABETES-EYE EXAM 07/20/2023 07/20/2022, [...] Scan 03/11/2024 03/11/2023 CKD HGB USE SMARTSET 35123 03/29/202403/29, 03/29/2023, 12/01/2022, Additional history exists DTaP,Tdap,and Td Vaccines (3 - Td or Tdap) 01/11/2028 01/10/2018, 10/03/2012 Pneumococcal Vaccine: 65+ Years Completed 05/14/2015, 09/11/2009, 07/12/2003 Zoster Vaccines Completed 03/22/2020, 08/30/2019 COLONOSCOPY-EVERY 5 YRS AGES 18-100 Discontinued 11/19/2020, 11/19/2020, 05/16/2015, Additional history exists Alpha-1 Antitrypsin Completed 03/11/2022 VITAMIN D LEVEL ONCE IN A LIFETIME-USE SMARTSET# [id number] Completed 03/29/2023, 05/12/2014 GARDASIL-HPV IMMUNIZATION SERIES Aged [...] the patient have Health Care Power of Internal Specialist? No Full Code 08/14/2010 2:57 PM 08/15/2010 2:24 PM Thi s order reflects the patients wishes and were consensually agreed upon. Care Teams Lumber Marker Relationship Specialty Start Date End Date Zachariah Duarte DO [address] [place] [address] PCP - General Family Medicine 12/20/20 documented as of this encounter
--- OUTSIDE RECORDS SUMMARY | 2023-08-28 08:38 | External Medical Summary | Summary of Care ---
Author Name Unknown Organization [facility] Address [address] [facility] [place] [address] Phone [phone] Care Team Providers Care Spot Facer Name Role Phone Zachariah Duarte DO Primary Care Provider [phone] Reason for Visit * Reason Onset Date Comments [facility]: Maintenance 05/14/2023 Encounter Details Date Type Department Care Team Description 05/14/2023 Telephone [facility], [facility] [address] [facility] [place] [address] [facility], Nurse [facility] [address] [facility] [place] [address] [facility]: Maintenance Allergies Active Allergy Reactions Severity Noted Date Comments Propoxyphene N-Acetaminophen 06/22/2012 N/V Fentanyl Nausea/vomiting 10/15/2009 Oxycodone High 01/21/2023 Other reaction(s): vomiting Oxycodone-Acetaminophen Nausea/vomiting High 010 documented as of this encounter (statuses as of 05/14/2023) Medications Medication Sig Dispensed Refills Start Date [...] 1 Each 0 04/09/2022 Active oxygen IN GASIndications:Medical Recruiter bobbi respiratory failure with hypoxia (HCC),Centrilobular [...] 90 Tablet 2 11/13/2022 4 Active Umeclidinium [place] 62.5 MCG/ACT Inhalation Aerosol Powder Breath Activated (INCRUSE ellipta)Indications :COPD, group B, by GOLD 2017 classification ([facility]) INHALE ONE PUFF BY MOUTH [...] of [place] heart with stable angina pectoris (HCC) TAKE [...] as of this encounter (statuses as of 05/14/2023) Active Problems Problem Noted Date Age-related osteopor [...] (hypertension) 09/28/2012 Atherosclerosis of [place] artery of extr emity 06/22/2012 Obstructive sleep apnea 01/13/2010 Overview: ICD-10 update of inactive term Last Assessment & Plan: Compliant with CPAP Old myocardial infarction 10/25/2009 Lumbar disc disorder with myelopathy Overview: Fentanyl patch caused severe nausea and vomiting Failed ultram Oxycodone caused nausea Preglaucoma 08/29/1998 History of TIA (transient ischemic attac k) documented as of this encounter (statuses as of 05/14/2023) Resolved Problems Problem Noted Date Resolved Date [...] as of this encounter (statuses as of 05/14/2023) Immunizations Name Administration Dates Next Due COVID-19 [...] Telephone Encounter - Margi Etienne RN - 05/14/2023 4:31 PM EDT Phone call patient to review medications as he was to have his medication list available to review with Triage nurse. Medication rec. Completed, all medications correct in EPIC Will follow up call with patient next month. BOBBY Neville Test Desk Trouble Locator [facility] documented in this encounter Plan of Treatment Upcoming Encounters Date Type Specialty Care Team Description 05/18/2023 Office Visit Family Medicine Zachariah Duarte DO [address] [place] [address] 05/27/2023 Laboratory Laboratory Processing [facility], [facility] Mobile Home Draw [address] [facility] [id number] 05/28/2023 [facility] [address] [facility] [place] [address] 06/10/2023 Scheduled Telephone [facility] Nurse Triage [address] [place] [address] 07/22/2023 Office Visit Sleep Disorders Marnie Hartman, DO [address] [place] [address] 03/28/2024 Office Visit Rheumatology [facility]owitz [facility] [address] [facility] [address] Scheduled Procedures Name Priority Associated Diagnoses Date/Ti me COLONOSCOPY FLEXIBLE PROXIMAL DIAGNOSTIC Recall History of colon polyps Health Maintenance Due Date Last Done Comments COVID-19 Vaccine (6 - Moderna series) 02/17/2022 12/23/2021, 07/24/2021, 07/24/2021, Additional history exists Albumin/Creatinine Ratio 10/20/202210/20/ 022, 08/11/2017, 10/31/2015, Additional history exists COLONOSCOPY-EVERY 2 YRS AGES 18-100 11/19/2022 11/19/2020, 11/19/2020, 05/16/2015, Additional history exists Diabetic Foot Exam 02/06/2023 02/06/2022, 0 08/30/2019, 08/18/2018, Additional history exists Influenza Vaccine (FLU shot) (#1) 2023 05/27/2022, 06/23/2021, 05/04/2020, Additional history exists CKD PHOS USE SMARTSET 78636 07/02/202306/23, 07/01/2021, 03/22/2020 DIABETES-EYE EXAM 07/20/2023 07/20/2022, , 08/26/2020, Additional history exists O2 ASSESSMENT COMPLETED IN PAST YEAR FOR COPD 08/10/2023 08/10/2022 DISCUSS TOBACCO CESSATION (REFER TO SMARTSET #3291) 08/26/2023 08/26/2022, 05/27/2022, 02/11/2022, Additional history exists GFR 10/15/2023 04/14/2023, 08/0 02/2023, 12/01/2022, Additional history exists HbA1c 10/15/2023 04/14/2023, 11/, 02/06/2022, Additional history exists Depression Screening 11/21/2023 11/20/2022 DXA Scan 03/11/2024 03/11/2023 CKD HGB USE SMARTSET 77830 03/29/202403/29, 03/29/2023, 12/01/2022, Additional history exists DTaP,Tdap,and Td Vaccines (3 - Td or Tdap) 01/11/2028 01/10/2018, 10/03/2012 Pneumococcal Vaccine: 65+ Years Completed 05/14/2015, 09/11/2009, 07/12/2003 Zoster Vaccines Completed 03/22/2020, 08/30/2019 COLONOSCOPY-EVERY 5 YRS AGES 18-100 Discontinued 11/19/2020, 11/19/2020, 05/16/2015, Additional history exists Alpha-1 Antitrypsin Completed 03/11/2022 VITAMIN D LEVEL ONCE IN A LIFETIME-USE SMARTSET# [id number] Completed 03/29/2023, 05/12/2014 GARDASIL-HPV IMMUNIZATION SERIES Aged [...] the patient have Health Care Power of Rn Oncology Clinical? No Full Code 08/14/2010 2:57 PM 08/15/2010 2:24 PM Thi s order reflects the patients wishes and were consensually agreed upon. Care Teams Spot Facer Relationship Specialty Start Date End Date Zachariah Duarte DO [address] [place] [address] PCP - General Family Medicine 12/20/20 documented as of this encounter
--- OUTSIDE RECORDS SUMMARY | 2023-08-28 08:38 | External Medical Summary | Summary of Care ---
Author Name Unknown Organization [facility] Address [address] [facility] [place] [address] Phone [phone] Care Team Providers Care Merchandise Displayer Name Role Phone Zachariah Duarte DO Primary Care Provider Reason for Visit * Reason Onset Date Comments Referral 05/19/2023 Ortho spine Encounter Details Date Type Department Care Team Description 05/19/2023 Telephone Family Practice [facility] [address] [place] [address] Zachariah Duarte DO [address] [place] [address] Referral (Ortho spine ) Allergies Active Allergy Reactions Severity Noted Date [...] Each 0 04/09/2022 Active oxygen IN GASIndications: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 respiratory failure with hypoxia (HCC),Centrilobular [...] 90 Tablet 2 11/13/2022 4 Active Umeclidinium [place] 62.5 MCG/ACT Inhalation Aerosol Powder Breath Activated (INCRUSE ellipta)Indications :COPD, group B, by GOLD 2017 classification ([facility]) INHALE ONE PUFF BY MOUTH EVERY [...] 12 Hour (Ranexa)Indications :Coronary artery disease of [place] artery of [place] heart with stable angina pectoris (HCC) TAKE [...] dose: 40 mg Diastolic congestive heart failure 02/28 /2022 Last Assessment & Plan: Continue Lasix Spironolactone [...] artery disease of n ative artery of [place] heart with stable angina pectoris 01/30/2017 Overview: More specific. 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 17 Last Assessment & Plan: Cognition at baseline -not tolerating Aricept HTN (hypertension) 09/28/2012 Atherosclerosis of [place] artery of extr emity 06/22/2012 Obstructive sleep [...] encounter Miscellaneous Notes * Telephone Encounter - Sowmya Garcia - 05/19/2023 2:39 PM EDT Appt was scheduled * Telephone Encounter - Sowmya Garcia - 05/19/2023 8:19 AM EDT LM for pt to call back to schedule with ortho spine documented in this encounter Plan of Treatment Upcoming Encounters Date Type Specialty Care Team Description 05/21/2023 Office Visit Orthopedic Surgery Rocio Upton MD [address] [place] [address] 05/27/2023 Laboratory Laboratory Processing [facility], [facility] Mobile Home Draw [address] [place] [address] 05/28/2023 [facility] [address] [facility] [place] [address] 06/10/2023 Scheduled Telephone [facility] Nurse Triage [address] [facility] [place] [address] 07/22/2023 Office Visit Sleep Disorders Marnie Hartman, DO [address] [place] [address] 03/28/2024 Office Visit Rheumatology [facility] Horowitz [facility] [address] [facility] [address] Scheduled Procedures Name Priority Associated Diagnoses Date/Ti [...] Additional history exists CKD PHOS USE SMARTSET 35502 07/02/202306/23, 07/01/2021, 03/22/2020 DIABETES-EYE EXAM 07/20/2023 07/20/2022, , 08/26/2020, Additional history exists O2 ASSESSMENT COMPLETED IN PAST YEAR FOR COPD 08/10/2023 08/10/2022 DISCUSS TOBACCO CESSATION (REFER TO SMARTSET #3291) 08/26/2023 08/26/2022, 05/27/2022, 02/11/2022, Additional history exists GFR 10/15/2023 04/14/2023, 0802/2023, 12/01/2022, Additional history exists HbA1c 10/15/2023 04/14/2023, 06/23, 02/06/2022, Additional history exists Depression Screening 11/21/2023 11/20/2022 DXA Scan 03/11/2024 03/11/2023 CKD HGB USE SMARTSET 28429 03/29/202403/29, 03/29/2023, 12/01/2022, Additional history exists DTaP,Tdap,and Td Vaccines (3 - Td or Tdap) 01/11/2028 01/10/2018, 10/03/2012 Pneumococcal Vaccine: 65+ Years Completed 05/14/2015, 09/11/2009, 07/12/2003 Zoster Vaccines Completed 03/22/2020, 08/30/2019 COLONOSCOPY-EVERY 5 YRS AGES 18-100 Discontinued 11/19/2020, 11/19/2020, 05/16/2015, Additional history exists Alpha-1 Antitrypsin Completed 03/11/2022 VITAMIN D LEVEL ONCE IN A LIFETIME-USE SMARTSET# 79167 Completed 03/29/2023, 05/12/2014 Influenza Vaccine (FLU shot) [...] the patient have Health Care Power of Card Dealer? No Full Code 08/14/2010 2:57 PM 08/15/2010 2:24 PM Thi s order reflects the patients wishes and were consensually agreed upon. Care Teams Merchandise Displayer Relationship Specialty Start Date End Date Zachariah Duarte DO [address] [place] [address] PCP - General Family Medicine 12/20/20 documented as of this encounter
--- OUTSIDE RECORDS SUMMARY | 2023-08-28 08:39 | External Medical Summary | Summary of Care ---
Author Name Unknown Organization [facility] Address [address] [facility] [place] [address] Phone [phone] Care Team Providers Care Master Tax Advisor Name Role Phone Zachariah Duarte DO Primary Care Provider [phone] Reason for Visit * Reason Onset Date Comments [facility]: Maintenance 04/07/2023 Encounter Details Date Type Department Care Team Description 04/07/2023 Scheduled Telephone [facility], [facility] [address] [facility] [place] [address] [facility] Nurse Triage [address] [facility] [place] [address] Allergies Active Allergy Reactions Severity Noted Date Comments Propoxyphene N-Acetaminophen 06/22/2012 N/V Fentanyl Nausea/vomiting 10/15/2009 Oxycodone High 01/21/2023 Other reaction(s): vomiting Oxycodone-Acetaminophen Nausea/vomiting High 010 documented as of this encounter (statuses as of 04/07/2023) Medications Medication Sig Dispensed Refills Start Date [...] 1 Each 0 04/09/2022 Active oxygen IN GASIndications: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 respiratory failure with hypoxia (HCC),Centrilobular [...] BEDTIME 60 Tablet 5 12/29/2022 4 Active Clopidogrel Bisulfate 75 MG Oral Tablet (pLAVix)Indications :History of TIA (transient ischemic attack) TAKE ONE TABLET BY MOUTH EVERY DAY 100 Tablet 1 12/22/2022 4 Active traZODone HCl 100 MG Oral Tablet (Desyrel) TAKE ONE TABLET BY MOUTH AT BEDTIME NEEDED FOR SLEEP 90 Tablet 2 11/13/2022 4 Active Umeclidinium [place] 62.5 MCG/ACT Inhalation Aerosol Powder Breath Activated (INCRUSE ellipta)Indications :COPD, group B, by GOLD 2017 classification (HCC) INHALE ONE PUFF BY MOUTH EVERY DAY [...] 12 Hour (Ranexa)Indications :Coronary artery disease of [place] artery of [place] heart with stable angina pectoris (HCC) TAKE [...] as of this encounter (statuses as of 04/07/2023) Active Problems Problem Noted Date Age-related osteopor [...] artery disease of n ative artery of [place] heart with stable angina pectoris 01/30/2017 Overview: More specific. 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 17 Last Assessment & Plan: Cognition at baseline -not tolerating Aricept HTN (hypertension) 09/28/2012 Atherosclerosis of [place] artery of extr emity 06/22/2012 Obstructive sleep apnea 01/13/2010 Overview: ICD-10 update of inactive term Last Assessment & Plan: Compliant with CPAP Old myocardial infarction 10/25/2009 Lumbar disc disorder with myelopathy Overview: Fentanyl patch caused severe nausea and vomiting Failed ultram Oxycodone caused nausea Preglaucoma 08/29/1998 History of TIA (transient ischemic attac k) documented as of this encounter (statuses as of 04/07/2023) Resolved Problems Problem Noted Date Resolved Date [...] as of this encounter (statuses as of 04/07/2023) Immunizations Name Administration Dates Next Due COVID-19 mRNA, LNP-s, No Pre serve, 2-Dose Series (Moderna) 12/23/2021,07/24/2021,01/10/2021,12/13 Covid-19 Mrna, Lnp-s, No Pre serve, Booster (Moderna) 07/24/2021 H1N1 2009 Influenza, IM 10/15/2009 Pneumococcal Conjugate Vacc, 13 Valent (Prevnar) 05/14/2015 Pneumococcal Polysaccharide PPV23 (Pneumovax) 09/11/2009 Seasonal Influenza, Quadriva lent Hd (Fluzone Hd) 05/27/2022,06/23/2021 Seasonal Influenza, Quadriva lent, No Preserve, 6 Mons & Above, IM 06/08/2018,06/16/2017 Seasonal Influenza, Quadriva lent, No Preserve, Adjuvanted, 65+ Yrs, IM 05/04/2020 Seasonal Influenza, Quadriva lent, No Preserve, IM [...] Telephone Encounter - Margi Etienne RN - 04/07/2023 8:34 AM EDT [facility] Fac[facility] Coordinator Telephonic Visit Date: 04/07/2023 Time: 8:35 AM Name: Kaleb Oakley : 1945 Phone call to Kaleb, introduced myself to patient and spouse and purpose of call. Spoke with Kaleb, states he is fine today, received Reclast infusion 2 days ago, got chills and chest tightness with some SOB, last night, went to bed early and woke up feeling better today, denies any chest tightness, -SOB, no chills today. Denies open areas on body, does not test his BS unless he feels his BS islow, take sugar cubes and eats food, wears 3lpm of O2 at night, has Lumigen that uses when he knowshe has to walk a lot. Wears life alert button. Reclast infusion done yearly Problems/Symptoms HPI: Constitutional: no weight loss and + chronic fatigue/weakness, uses a walker at all times when in the home, -MARI, -dizziness, -lightheadedness Resp: no cough, no sputum, no wheezing, and no SOB Cardiac: no chest pain, no orthopnea, and no dyspnea on exertion GI: no pain, no heartburn, no diarrhea, no constipation Musculoskeletal: no significant joint or muscle pain and no swelling Neuro: no memory loss, no falling, no numbness or tingling, and no vertigo Assessment: There are no diagnoses linked to this encounter. [facility] Completed this Visit: No. No falls since last visit Medication Reconciliation: Does patient take medications as ordered: Yes, spouse sets up daily medications, takes 12 in the AM and 12 in the PM Take warfarin instead of Plavix due to the cost of Plavix being to expensive Follows with monthly Protimes and prn. Has PT scheduled for tomorrow Scheduled with Triage in one month with wv Margi Etienne RN 04/07/2023 8:35 AM documented in this encounter Plan of Treatment Upcoming Encounters Date Type Specialty Care Team Description 04/08/2023 Laboratory Laboratory Processing [facility], [facility] Mobile Home Draw [address] [place] [address] 04/09/2023 [facility] [address] [place] [address] 05/11/2023 Scheduled Telephone [facility] Nurse Triage [address] [place] [address] 05/18/2023 Office Visit Family Medicine Zachariah Duarte DO [address] [place] [address] 07/22/2023 Office Visit Sleep Disorders Marnie Hartman, DO [address] [place] [address] 03/28/2024 Office Visit Rheumatology Yudi Horowitz CRNP [address] [facility], [place] [address] Scheduled Procedures Name Priority Associated Diagnoses Date/Ti [...] 02/06/2022, 0 08/30/2019, 08/18/2018, Additional history exists *BISPHONATE OR OTHER ACCEPTABLE MEDICATION NEEDED FOR OSTEOPOROSIS (REFER TO SMARTSET #1146) 02/11/2023 Influenza Vaccine (FLU shot) (#1) 2023 05/27/2022, 06/23/2021, 05/04/2020, Additional history exists CKD PHOS USE SMARTSET 00183 07/02/202306/23, 07/01/2021, 03/22/2020 DIABETES-EYE EXAM 07/20/2023 07/20/2022, , 08/26/2020, Additional history exists O2 ASSESSMENT COMPLETED IN PAST YEAR FOR COPD 08/10/2023 08/10/2022 DISCUSS TOBACCO CESSATION (REFER TO SMARTSET #3291) 08/26/2023 08/26/2022, 05/27/2022, 02/11/2022, Additional history exists GFR 09/29/2023 03/29/2023, 0408/2022, 07/02/2022, Additional history exists Depression Screening, Annual for Pts 12 and Over 11/21/2023 11/20/2022 DXA Scan 03/11/2024 03/11/2023 CKD HGB USE SMARTSET 78748 03/29/202403/29, 03/29/2023, 12/01/2022, Additional history exists DTaP,Tdap,and Td Vaccines (3 - Td or Tdap) 01/11/2028 01/10/2018, 10/03/2012 Pneumococcal Vaccine: 65+ Years Completed 05/14/2015, 09/11/2009, 07/12/2003 Zoster Vaccines Completed 03/22/2020, 08/30/2019 COLONOSCOPY-EVERY 5 YRS AGES 18-100 Discontinued 11/19/2020, 11/19/2020, 05/16/2015, Additional history exists Alpha-1 Antitrypsin Completed 03/11/2022 VITAMIN D LEVEL ONCE IN A LIFETIME-USE SMARTSET# 27982 Completed 03/29/2023, 05/12/2014 GARDASIL-HPV IMMUNIZATION SERIES Aged [...] the patient have Health Care Power of Fiber Product Cutting Machine Operator? No Full Code 08/14/2010 2:57 PM 08/15/2010 2:24 PM Thi s order reflects the patients wishes and were consensually agreed upon. Care Teams Master Tax Advisor Relationship Specialty Start Date End Date Zachariah Duarte DO [address] [place] [address] PCP - General Family Medicine 12/20/20 documented as of this encounter
--- OUTSIDE RECORDS SUMMARY | 2023-08-28 08:39 | External Medical Summary | Summary of Care ---
Author Name Unknown Organization [facility] Address [address] [facility] [place] [address] Phone [phone] Care Team Providers Care Gas Leak Inspector Name Role Phone Kj Duarteinic Primary Care Provider Reason for Visit * Reason Onset Date Comments Medication Pre-auth 03/29/2023 Reclast Encounter Details Date Type Department Care Team Description 03/29/2023 Telephone Rheumatology [facility] [address] [place] [address] Yudi Horowitz CRNP [address] [place] [id number] Medication Pre-auth (Reclast ) Allergies Active Allergy Reactions Severity Noted Date Comments Propoxyphene N-Acetaminophen 06/22/2012 N/V Fentanyl Nausea/vomiting 10/15/2009 Oxycodone High 01/21/2023 Other reaction(s): vomiting Oxycodone-Acetaminophen Nausea/vomiting High 010 documented as of this encounter (statuses as of 04/08/2023) Medications Medication Sig Dispensed Refills Start Date [...] DAILY 30 mL 0 01/17/20 20 Active insulin REGULAR human (NOVOLIN R RELION) 100 UNIT/ML injectionIndicatio ns:Type 1 diabetes mellitus with hemoglobin A1c goal of less than 8.0% (HCC) Inject 12 units with breakfast, 10 units with lunch, 15 units with dinner DISPENSE 5 vials 5 Each 3 12/29/19 20 Active Additional Information Patient taking differently: 15 [...] sleep 1 Each 0 05/19/20 22 Active Ondansetron HCl 4 MG Oral Tablet (Zofran)Indication s:Gastroparesis TAKE ONE TABLET BY MOUTH EVERY 6 HOURS NEEDED FOR NAUSEA. 15 Tablet 0 07/09/20 22 023 Active Ipratropium-Al[place] rol 0.5-2.5 (3) MG/3ML Inhalation Solution (Duoneb)Indication s:Centrilobular emphysema (HCC) INHALE 3 ML (1 VIAL) BY MOUTH VIA NEBULIZER IN THE MORNING AND 3 ML AT NOON THEN 3 ML IN THE EVENING AND 3 ML BEFORE BEDTIME 360 mL 11 04/09/20 22 023 Active Docusate Sodium 100 MG Oral Tablet [...] Tablet 2 11/14/19 23 024 Active Umeclidinium [place] 62.5 MCG/ACT Inhalation Aerosol Powder Breath Activated (INCRUSE ellipta)Indication s:COPD, group B, by GOLD 2017 classification ([facility]) INHALE ONE PUFF BY MOUTH EVERY [...] 12 Hour (Ranexa)Indication s:Coronary artery disease of [place] artery of [place] heart with stable angina pectoris (HCC) TAKE ONE TABLET BY MOUTH TWICE A DAY -- IN THE MORNING AND BEFORE BEDTIME 180 Tablet 3 09/07/19 23 024 Active Famotidine 20 MG Oral Tablet (Pepcid)Indication s:Gastro-esophagea l reflux disease without esophagitis TAKE ONE TABLET BY MOUTH TWO TIMES A DAILY AY NEEDED FOR HEARTBURN 30 Tablet 1 08/03/20 22 023 Active Nortriptyline HCl 75 MG Oral Capsule (Pamelor)Matttio ns:Diabetic polyneuropathy associated with type 1 diabetes [...] the morning. 100 Tablet 3 03/22/20 23 Active Clopidogrel Bisulfate 75 MG Oral Tablet (pLAVix)Indication s:History of TIA (transient ischemic attack) TAKE ONE TABLET BY MOUTH EVERY DAY 100 Tablet 1 12/23/19 23 023 Discontinued documented as of this encounter (statuses as of 04/08/2023) Active Problems Problem Noted Date Age-related osteopor [...] artery disease of n ative artery of [place] heart with stable angina pectoris 01/30/2017 Overview: More specific. 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 17 Last Assessment & Plan: Cognition at baseline -not tolerating Aricept HTN (hypertension) 09/28/2012 Atherosclerosis of [place] artery of extr emity 06/22/2012 Obstructive sleep apnea 01/13/2010 Overview: ICD-10 update of inactive term Last Assessment & Plan: Compliant with CPAP Old myocardial infarction 10/25/2009 Lumbar disc disorder with myelopathy Overview: Fentanyl patch caused severe nausea and vomiting Failed ultram Oxycodone caused nausea Preglaucoma 08/29/1998 History of TIA (transient ischemic attac k) documented as of this encounter (statuses as of 04/08/2023) Resolved Problems Problem Noted Date Resolved Date [...] as of this encounter (statuses as of 04/08/2023) Immunizations Name Administration Dates Next Due COVID-19 mRNA, LNP-s, No Pre serve, 2-Dose Series (Moderna) 12/23/2021,07/24/2021,01/10/2021,12/13 Covid-19 Mrna, Lnp-s, No Pre serve, Booster (Moderna) 07/24/2021 H1N1 2009 Influenza, IM 10/15/2009 Pneumococcal Conjugate Vacc, 13 Valent (Prevnar) 05/14/2015 Pneumococcal Polysaccharide PPV23 (Pneumovax) 09/11/2009,07/12/2003 Seasonal Influenza Virus Vac cine, Unspecified Formulation [...] encounter Miscellaneous Notes * Telephone Encounter - Елена Up LPN - 04/08/2023 10:18 AM EDT Reclast done on 04/05 * Telephone Encounter - VENICE Ward - 03/31/2023 8:17 AM EDT Called patient, no answer. Left message to call back to schedule. Will call patient again later today/tomorrow. * Telephone Encounter - VENICE Dumont - 03/30/2023 4:15 PM EDT Patient returning missed call, please advise patient. * Telephone Encounter - VENICE Bellamy - 03/30/2023 11:41 AM EDT Called and lmom for patient * Telephone Encounter - Sonal Justin RN - 03/30/2023 11:31 AM EDT Labs ok per provider. Scheduling: please call patient to schedule 1 hour appt on 503 schedule "reclast" (Yudi Horowitz). Thanks! * Telephone Encounter - Sonal Justin RN - 03/30/2023 9:39 AM EDT Referral entered, labs 03/29/23. Yudi: are labs ok to proceed with scheduling reclast? Thanks! * Telephone Encounter - Mari Cook LPN - 03/29/2023 1:46 PM EDT Order received for Reclast 5mg IV once yearly [place] created and routed to provider for signature Rheum: When the labs and auth are back and patient is ready to be scheduled, please forward back top [phone] for scheduling. Thank you! * Telephone Encounter - Елена Up LPN - 03/29/2023 11:33 AM EDT Please auth * Telephone Encounter - ZEYAD Adams - 03/29/2023 11:13 AM EDT Can we please look into coverage for Reclast, GI contraindication to Fosamax. Labs due. documented in this encounter Plan of Treatment Upcoming Encounters Date Type Specialty Care Team Description 04/09/2023 Anticoagulation Pharmacy Telepharmacy, [facility] [address] [facility] [place] [address] 05/11/2023 Scheduled Telephone [facility] Nurse Triage [address] [place] [address] 05/18/2023 Office Visit Family Medicine Zachariah Duarte, DO [address] [place] [address] 07/22/2023 Office Visit Sleep Disorders Marnie Hartman, [address] [place] [address] 03/28/2024 Office Visit Rheumatology Yudi Horowitz CRNP [address] [place] [address] Scheduled Procedures Name Priority Associated Diagnoses Date/Ti [...] Additional history exists CKD PHOS USE SMARTSET 63187 07/02/202306/23, 07/01/2021, 03/22/2020 DIABETES-EYE EXAM 07/20/2023 07/20/2022, , 08/26/2020, Additional history exists O2 ASSESSMENT COMPLETED IN PAST YEAR FOR COPD 08/10/2023 08/10/2022 DISCUSS TOBACCO CESSATION (REFER TO SMARTSET #3291) 08/26/2023 08/26/2022, 05/27/2022, 02/11/2022, Additional history exists GFR 09/29/2023 03/29/2023, 11/21, 07/02/2022, Additional history exists Depression Screening, Annual for Pts 12 and Over 11/21/2023 11/20/2022 DXA Scan 03/11/2024 03/11/2023 CKD HGB USE SMARTSET 50862 03/29/202403/29, 03/29/2023, 12/01/2022, Additional history exists DTaP,Tdap,and Td Vaccines (3 - Td or Tdap) 01/11/2028 01/10/2018, 10/03/2012 Pneumococcal Vaccine: 65+ Years Completed 05/14/2015, 09/11/2009, 07/12/2003 Zoster Vaccines Completed 03/22/2020, 08/30/2019 COLONOSCOPY-EVERY 5 YRS AGES 18-100 Discontinued 11/19/2020, 11/19/2020, 05/16/2015, Additional history exists Alpha-1 Antitrypsin Completed 03/11/2022 VITAMIN D LEVEL ONCE IN A LIFETIME-USE SMARTSET# [id number] Completed 03/29/2023, 05/12/2014 GARDASIL-HPV IMMUNIZATION SERIES Aged [...] the patient have Health Care Power of Manufacturing Intern? No Full Code 08/14/2010 2:57 PM 08/15/2010 2:24 PM Thi s order reflects the patients wishes and were consensually agreed upon. Care Teams Gas Leak Inspector Relationship Specialty Start Date End Date Zachariah Duarte DO [address] [place] [address] PCP - General Family Medicine 12/20/20 documented as of this encounter
--- OUTSIDE RECORDS SUMMARY | 2023-08-28 08:39 | External Medical Summary | Summary of Care ---
Author Name Unknown Organization [facility] Address [address] [facility] [place] [address] Phone [phone] Care Team Providers Care Door Attendant Name Role Phone Zachariah Duarte DO Primary Care Provider [phone] Reason for Visit * Reason Onset Date Comments Appointment 04/01/2023 Treatment Encounter Details Date Type Department Care Team Description 04/01/2023 Telephone Hematology/Oncology [facility] [address] [facility] [facility] [address] [facility], Scheduling [address] [place] [address] Appointment (Treatment) Allergies Active Allergy Reactions Severity Noted Date Comments Propoxyphene N-Acetaminophen 06/22/2012 N/V Fentanyl Nausea/vomiting 10/15/2009 Oxycodone High 01/21/2023 Other reaction(s): vomiting Oxycodone-Acetaminophen Nausea/vomiting High 010 documented as of this encounter (statuses as of 04/02/2023) Medications Medication Sig Dispensed Refills Start Date [...] Mis Natural Products (T-RELIEF CBD+13) SUBL Place under [...] 1 Each 0 04/09/2022 Active oxygen IN GASIndications: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 respiratory failure with hypoxia (HCC),Centrilobular [...] 90 Tablet 2 11/13/2022 4 Active Umeclidinium [place] 62.5 MCG/ACT Inhalation Aerosol Powder Breath Activated (INCRUSE ellipta)Indications :COPD, group B, by GOLD 2017 classification ([facility] [...] 12 Hour (Ranexa)Indications :Coronary artery disease of [place] artery of [place] heart with stable angina pectoris (HCC) TAKE [...] as of this encounter (statuses as of 04/02/2023) Active Problems Problem Noted Date Age-related osteopor [...] artery disease of n ative artery of [place] heart with stable angina pectoris 01/30/2017 Overview: More specific. 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 17 Last Assessment & Plan: Cognition at baseline -not tolerating Aricept HTN (hypertension) 09/28/2012 Atherosclerosis of [place] artery of extr emity 06/22/2012 Obstructive sleep apnea 01/13/2010 Overview: ICD-10 update of inactive term Last Assessment & Plan: Compliant with CPAP Old myocardial infarction 10/25/2009 Lumbar disc disorder with myelopathy Overview: Fentanyl patch caused severe nausea and vomiting Failed ultram Oxycodone caused nausea Preglaucoma 08/29/1998 History of TIA (transient ischemic attac k) documented as of this encounter (statuses as of 04/02/2023) Resolved Problems Problem Noted Date Resolved Date [...] as of this encounter (statuses as of 04/02/2023) Immunizations Name Administration Dates Next Due COVID-19 [...] Miscellaneous Notes * Telephone Encounter - VENICE Bellamy - 04/02/2023 2:50 PM EDT Patient returned call and is scheduled for reclast for 04/05. * Telephone Encounter - VENICE Bellamy - 04/02/2023 8:41 AM EDT Called and lmom for patient. * Telephone Encounter - Jennifer Flores, VENICE - 04/01/2023 3:53 PM EDT We received a call from Kaleb wanting to schedule his Reclast treatment. Please give him a call atyour earliest convenience to schedule his treatment. Klaeb can be reached at [phone]. Thank you! documented in this encounter Plan of Treatment Upcoming Encounters Date Type Specialty Care Team Description 04/05/2023 Hem/Onc Treatment Hematology [facility]cology [place], Chair [address] Hem Onc Scenery [address] [place] [address] 04/08/2023 Laboratory Laboratory Processing [facility], [facility] Home Draw [address] [place] [address] 04/09/2023 [facility] [address] [facility] [address] 05/18/2023 Office Visit Family Medicine Zachariah Duarte, DO [address] [place] [address] 07/22/2023 Office Visit Sleep Disorders Marnie Hartman, [address] [place] [address] 03/28/2024 Office Visit Rheumatology Yudi Horowitz, ZEYAD [address] [facility], [place] [address] Scheduled Procedures Name Priority Associated Diagnoses Date/Ti [...] Additional history exists CKD PHOS USE SMARTSET 13780 07/02/202306/23, 07/01/2021, 03/22/2020 DIABETES-EYE EXAM 07/20/2023 07/20/2022, , 08/26/2020, Additional history exists O2 ASSESSMENT COMPLETED IN PAST YEAR FOR COPD 08/10/2023 08/10/2022 DISCUSS TOBACCO CESSATION (REFER TO SMARTSET #3291) 08/26/2023 08/26/2022, 05/27/2022, 02/11/2022, Additional history exists GFR 09/29/2023 03/29/2023, 11/21, 07/02/2022, Additional history exists Depression Screening, Annual for Pts 12 and Over 11/21/2023 11/20/2022 DXA Scan 03/11/2024 03/11/2023 CKD HGB USE SMARTSET 72247 03/29/202403/29, 03/29/2023, 12/01/2022, Additional history exists DTaP,Tdap,and Td Vaccines (3 - Td or Tdap) 01/11/2028 01/10/2018, 10/03/2012 Pneumococcal Vaccine: 65+ Years Completed 05/14/2015, 09/11/2009, 07/12/2003 Zoster Vaccines Completed 03/22/2020, 08/30/2019 COLONOSCOPY-EVERY 5 YRS AGES 18-100 Discontinued 11/19/2020, 11/19/2020, 05/16/2015, Additional history exists Alpha-1 Antitrypsin Completed 03/11/2022 VITAMIN D LEVEL ONCE IN A LIFETIME-USE SMARTSET# [id number] Completed 03/29/2023, 05/12/2014 GARDASIL-HPV IMMUNIZATION SERIES Aged [...] the patient have Health Care Power of Health Insurance Specialist? No Full Code 08/14/2010 2:57 PM 08/15/2010 2:24 PM Thi s order reflects the patients wishes and were consensually agreed upon. Care Teams Door Attendant Relationship Specialty Start Date End Date Zachariah Duarte DO [address] [place] [address] PCP - General Family Medicine 12/20/20 documented as of this encounter
--- OUTSIDE RECORDS SUMMARY | 2023-08-28 08:39 | External Medical Summary ---
Author Name Unknown Address Unknown Organization K01:[facility] - [address] [place] [address] Laboratory Report Ordering Provider Test Date Status LUIS ALBERTO CASH 04/08/2023 11:13:26 Final Warfarin Therapy
INR: 2 .0-3.0 conventional anticoagulation
INR: 2.5- 3.5 high intensity anticoagulation Observation Date Value Abnormality Reference (Units ) Status PT 04/08/2023 11:13:26 28.8 Above high normal 11 .6-15.2 (seconds) Final INR 04/08/2023 11:13:26 2.7 Above high normal 0. 8-1.2 Final Performing Location [facility] - [address] [place] [address]
--- OUTSIDE RECORDS SUMMARY | 2023-08-28 08:39 | External Medical Summary | Summary of Care ---
Author Name Unknown Organization [facility] Address [address] [facility] [place] [address] Phone [phone] Care Team Providers Care Drum Dyeing Machine Operator Name Role Phone Zachariah Duarte DO Primary Care Provider Reason for Visit * Reason Comments Outpatient Testing Encounter Details Date Type Department Care Team Description 04/14/2023 Laboratory Laboratory, [facility] [address] [facility] [place] [id number] [facility] [address] [facility] [place] [address] Type 2 diabetes mellitus with diabetic polyneuropathy, with long-term current use of insulin ([facility]); Coronary artery disease of [place] artery of [place] heart with stable angina pectoris ([facility]); S/P primary angioplasty with coronary stent; PAD (peripheral artery disease) ([facility]); Essential hypertension with goal blood pressure less than 140/90; Dyslipidemia, goal LDL below 70 Allergies Active Allergy Reactions Severity Noted Date [...] for lantus 1 box 11 09/11/2009 Active [employer]shop ULTRA 2 W/DEVICE KITIndications:DM type 2, goal A1C 7-8 use as directed 1 Kit 0 03/09/2012 Active [employer] DELICA LANCETS MISCIndications:DM type 2, goal A1C 7-8 use up to 4 times daily 100 Each 11 03/09/2012 Active [employer] ULTRA BLUE STRPIndications:DM type 2, goal A1C [...] times daily 200 Each 11 06/23/2018 Active MyDoc[employer]c Natural Products (T-RELIEF CBD+13) SUBL Place under [...] 1 Each 0 04/09/2022 Active oxygen IN GASIndications: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 17 Last Assessment & Plan: Cognition at baseline -not tolerating Aricept HTN (hypertension) 09/28/2012 Atherosclerosis of [place] artery of extr emity 06/22/2012 Obstructive [...] Care Team Description 04/29/2023 Laboratory Laboratory Processing [facility] Mobile Home Draw [address] [place] [address] 04/30/2023 [facility] [address] [facility] [place] [address] 05/11/2023 Scheduled Telephone [facility] Nurse Triage [address] [place] [address] 05/18/2023 Office Visit Family Medicine Zachariah Duarte DO [address] [place] [address] 07/22/2023 Office Visit Sleep Disorders MinnieMarniearet, DO [address] [place] [address] 03/28/2024 Office Visit Rheumatology Yudi Horowitz, ZEYAD [address] [facility], [place] [address] Pending Results Name Type Priority Associated Diagnoses Date /Time HEMOGLOBIN A1C Lab Routine Type 2 diabetes mellitus with diabetic polyneuropathy, with long-term current use of insulin (HCC) 04/14/2023 11:52 AM EDT LIPID PANEL WITH DIRECT LDL IF TG IS HIGH Lab Routine Coronary artery disease of [place] artery of [place] heart with stable angina pectoris (HCC) S/P primary angioplasty with coronary stent PAD (peripheral artery disease) ([facility]) Essential hypertension with goal blood pressure less than 140/90 Dyslipidemia, goal LDL below 70 04/14/2023 11:52 AM EDT COMPREHENSIVE METABOLIC PANEL Lab Routine Coronary artery disease of [place] artery of [place] heart with stable angina pectoris (HCC) S/P primary angioplasty with coronary stent PAD (peripheral artery disease) ([facility]) Essential hypertension with goal blood pressure less than 140/90 Dyslipidemia, goal LDL below 70 04/14/2023 11:52 AM EDT Scheduled Procedures Name Priority Associated Diagnoses [...] Additional history exists CKD PHOS USE SMARTSET 05929 07/02/202306/23, 07/01/2021, 03/22/2020 DIABETES-EYE EXAM 07/20/2023 07/20/2022, , 08/26/2020, Additional history exists O2 ASSESSMENT COMPLETED IN PAST YEAR FOR COPD 08/10/2023 08/10/2022 DISCUSS TOBACCO CESSATION (REFER TO SMARTSET #3291) 08/26/2023 08/26/2022, 05/27/2022, 02/11/2022, Additional history exists GFR 09/29/2023 03/29/2023, 11/21, 07/02/2022, Additional history exists Depression Screening, Annual for Pts 12 and Over 11/21/2023 11/20/2022 DXA Scan 03/11/2024 03/11/2023 CKD HGB USE SMARTSET 10668 03/29/202403/29, 03/29/2023, 12/01/2022, Additional history exists DTaP,Tdap,and Td Vaccines (3 - Td or Tdap) 01/11/2028 01/10/2018, 10/03/2012 Pneumococcal Vaccine: 65+ Years Completed 05/14/2015, 09/11/2009, 07/12/2003 Zoster Vaccines Completed 03/22/2020, 08/30/2019 COLONOSCOPY-EVERY 5 YRS AGES 18-100 Discontinued 11/19/2020, 11/19/2020, 05/16/2015, Additional history exists Alpha-1 Antitrypsin Completed 03/11/2022 VITAMIN D LEVEL ONCE IN A LIFETIME-USE SMARTSET# [id number] Completed 03/29/2023, 05/12/2014 GARDASIL-HPV IMMUNIZATION SERIES Aged [...] as of this encounter Visit Diagnoses Diagnosis Type 2 diabetes mellitus with diabetic polyneuropathy, with long-term current use of insulin (HCC) Coronary artery disease of [place] artery of [place] heart with stable angina pectoris (HCC) S/P primary angioplasty with coronary stent Postsurgical percutaneous transluminal coronary angioplasty status PAD (peripheral artery disease) (HCC) Peripheral vascular disease, unspecified Essential hypertension with goal blood pressure less than 140/90 Dyslipidemia, goal LDL below 70 Other and unspecified hyperlipidemia documented in this encounter Advance Directives Latest [...] the patient have Health Care Power of Coutierier? No Full Code 08/14/2010 2:57 PM 08/15/2010 2:24 PM Thi s order reflects the patients wishes and were consensually agreed upon. Care Teams Drum Dyeing Machine Operator Relationship Specialty Start Date End Date Zachariah Duarte DO [address] [place] [address] PCP - General Family Medicine 12/20/20 documented as of this encounter
--- OUTSIDE RECORDS SUMMARY | 2023-08-28 08:39 | External Medical Summary | Summary of Care ---
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 Procedures AK ZOLEDRONIC ACID 1MG Yudi Horowitz CRNP [address] [facility] [place] [address] Anc Hem/Onc Scenery Michelle [address] [place] [address] Referral ID Status Reason Start Date Expiration Date V isits Requested Visits Authorized [id number] Authorized 03/30/2023 03/30/2024 99 99 Encounter Details Date Type Department Care Team Description 04/05/2023 Hem/Onc Treatment Hematology/Oncology Treatment, [place] [address] [place] [address] Michelle, Chair 3 Hem Onc Scenery [address] [place] [id number] 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* Allergies Active Allergy Reactions Severity Noted Date Comments Propoxyphene N-Acetaminophen 06/22/2012 N/V Fentanyl Nausea/vomiting 10/15/2009 Oxycodone High 01/21/2023 Other reaction(s): vomiting Oxycodone-Acetaminophen Nausea/vomiting High 010 documented as of this encounter (statuses as of 04/05/2023) Medications Medication Sig Dispensed Refills Start Date End Date Status SYRINGE (DISPOSABLE) 5 ML MISCIndications:DM type 2 causing neurological disease (HCC) use as directed for lantus 1 box 11 09/11/2009 Active [employer] ULTRA 2 W/DEVICE KITIndications:DM type 2, goal A1C 7-8 use as directed 1 Kit 0 03/09/2012 Active [employer] DELICA LANCETS MISCIndications:DM type 2, goal A1C 7-8 use up to 4 times daily 100 Each 11 03/09/2012 Active [employer] ULTRA BLUE STRPIndications:DM type 2, goal A1C [...] than 8.0% ([facility]) Use to inject insulin 5 times daily 200 Each 11 06/23/2018 Active [employer] (T-RELIEF CBD+13) SUBL Place under the tongue. 0 Active insulin isophane human (NOVOLIN N RELION) 100 UNIT/ML injectionIndication s:Type 1 diabetes mellitus with hemoglobin A1c goal of less than 8.0% ([facility]) INJECT 36 UNITS SUBCUTANEOUSLY AT NOON AND INJECT 25 UNITS AT MIDNIGHT DAILY 30 mL 0 01/17/2020 Active insulin REGULAR human (NOVOLIN R RELION) 100 UNIT/ML injectionIndication s:Type 1 diabetes mellitus with hemoglobin A1c goal of less than 8.0% ([facility]) Inject 12 units with breakfast, 10 units [...] 1 Each 0 04/09/2022 Active oxygen IN GASIndications:Freezer Unloader bobbi respiratory failure with hypoxia (HCC),Centrilobular [...] 90 Tablet 2 11/13/2022 4 Active Umeclidinium [place] 62.5 MCG/ACT Inhalation Aerosol Powder Breath Activated (INCRUSE ellipta)Indications :COPD, group B, by GOLD 2017 classification ([facility]) INHALE ONE PUFF BY MOUTH EVERY DAY [...] 12 Hour (Ranexa)Indications :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 17 Last Assessment & Plan: Cognition at baseline -not tolerating Aricept HTN (hypertension) 09/28/2012 Atherosclerosis of augustine artery of extr emity 06/22/2012 Obstructive sleep apnea 01/13/2010 Overview: ICD-10 update of inactive term Last Assessment & Plan: Compliant with CPAP Old myocardial infarction 10/25/2009 Lumbar disc disorder with myelopathy Overview: Fentanyl patch caused severe nausea and vomiting Failed ultram Oxycodone caused nausea Preglaucoma 08/29/1998 History of TIA (transient ischemic attac k) documented as of this encounter (statuses as of 04/05/2023) Resolved Problems Problem Noted Date Resolved Date [...] as of this encounter (statuses as of 04/05/2023) Immunizations Name Administration Dates Next Due COVID-19 [...] Sign Reading Time Taken Comments Blood Pressure 115/68 04/05/2023 3:56 PM EDT Pulse 67 04/05/2023 3:56 PM EDT Temperature 36.1 C (97 F) 04/05/2023 3:56 PM EDT Respiratory Rate 18 04/05/2023 3:56 PM EDT Oxygen Saturation 92% 04/05/2023 3:56 PM EDT Inhaled Oxygen Concentration - - Weight - [...] No 03/01/2019 documented as of this encounter Nursing Notes * Kiara Gonzalez LPN - 04/05/2023 3:57 PM EDT 1530: Chair 9. Pt arrived for Reclast infusion. PIV in RFA placed by Idalia Timmons RN. Pt toleratedwell. VSS. APAP not given due patient taking it routinely. at side. No complaints at this time. 1557: Pt tolerated Reclast infusion well. PIV removed intact. Pt to follow up with MD. Discharged in stable condition. documented in this encounter Plan of Treatment Upcoming Encounters Date Type Specialty Care Team Description 04/07/2023 Scheduled Telephone [facility] [place] [address] [place] [address] 04/08/2023 Laboratory Laboratory Processing [facility] [place] Mobile Home Draw [address] [place] [address] 04/09/2023 [facility] [address] [facility] [place] [address] 05/18/2023 Office Visit Family Medicine Zachariah Duarte, DO [address] [place] [address] 07/22/2023 Office Visit Sleep Disorders Marnie Hartman, DO [address] [place] [address] 03/28/2024 Office Visit Rheumatology Yudi Horowitz CRNP [address] [facility] [place] [address] Scheduled Procedures Name Priority Associated Diagnoses Date/Ti [...] Additional history exists CKD PHOS USE SMARTSET 56820 07/02/202306/23, 07/01/2021, 03/22/2020 DIABETES-EYE EXAM 07/20/2023 07/20/2022, , 08/26/2020, Additional history exists O2 ASSESSMENT COMPLETED IN PAST YEAR FOR COPD 08/10/2023 08/10/2022 DISCUSS TOBACCO CESSATION (REFER TO SMARTSET #7591) 08/26/2023 08/26/2022, 05/27/2022, 02/11/2022, Additional history exists GFR 09/29/2023 03/29/2023, 11/21, 07/02/2022, Additional history exists Depression Screening, Annual for Pts 12 and Over 11/21/2023 11/20/2022 DXA Scan 03/11/2024 03/11/2023 CKD HGB USE SMARTSET 53845 03/29/202403/29, 03/29/2023, 12/01/2022, Additional history exists DTaP,Tdap,and Td Vaccines (3 - Td or Tdap) 01/11/2028 01/10/2018, 10/03/2012 Pneumococcal Vaccine: 65+ Years Completed 05/14/2015, 09/11/2009, 07/12/2003 Zoster Vaccines Completed 03/22/2020, 08/30/2019 COLONOSCOPY-EVERY 5 YRS AGES 18-100 Discontinued 11/19/2020, 11/19/2020, 05/16/2015, Additional history exists Alpha-1 Antitrypsin Completed 03/11/2022 VITAMIN D LEVEL ONCE IN A LIFETIME-USE SMARTSET# [id number] Completed 03/29/2023, 05/12/2014 GARDASIL-HPV IMMUNIZATION SERIES Aged [...] as of this encounter Visit Diagnoses Diagnosis 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- Primary Aftercare for healing pathologic fracture of vertebrae documented in this encounter Administered Medications Active Administered Medications - up to 3 most recent administrations Medication Order MAR Action Action Date Dose Rate Site diphenhydrAMINE (Benadryl) inj 50 mg 50 mg, IV Push, ONCE PRN Other, Hypersensitivity Reaction, Starting on Wed04/05/23 at 1537, Until Wed04/06/23 at 1536, For 24 hours EPINEPHrine 1 MG/ML inj 0.3 mg 0.3 mg, Intramuscular, ONCE PRN Other, Hypersensitivity Reaction or Anaphylaxis, Starting on Wed04/05/23 at 1537, Until Wed04/06/23 at 1536, For 24 hours hEParin 100 UNIT/ML Lock Flush inj 500 Units 500 Units (5 mL), IV Lock, PRN Other, IV Flush, Starting on Wed04/05/23 at 1537, Until Wed04/06/23 at 1536, For 24 hours, Do not flush if lock, PICC, or central line not in place; IV infusing or unable to flush. Hydrocortisone Sod Suc (PF) (Solu-Cortef) inj 100 mg 100 mg, IV Push, ONCE PRN Other, Hypersensitivity Reaction, Starting on Wed04/05/23 at 1537, Until Wed04/06/23 at 1536, For 24 hours NSS infusion 500 mL, Intravenous, at 50 mL/hr, CONTINUOUS, Starting on Wed04/05/23 at 1645, Until Wed04/06/23 at 0244 Start Infusion 04/05/2023 3:38 PM EDT 500 mL 50 mL/hr oxygen GAS Inhalation, OXYGEN, First dose on Wed04/05/23 at 1615, Until Discontinued, Device/Managed by: Low Flow Device, Goal SPO2 (%): 91-95, Starting Device: Nasal Cannula, Inital Flow Rate (LPM): 2, Lowest Support: Nasal Cannula: Flow 0-6 LPM. Titrate up/down by 1 LPM., Higher Support: Non-Rebreather (NRB) Mask: Minimum of 10 LPM. Titrate to maintain bag inflation., Titration Interval: Q2 minutes and as needed., Notify Provider: For sudden DECREASE in resting SPO2 to less than 85% and when escalating delivery device. sodium chloride 0.9 % flush central line 10 mL 10 mL, IV Push, PRN Other, IV Flush, Starting on Wed04/05/23 at 1537, Until Wed04/06/23 at 1536, For 24 hours, Do not flush if lock, PICC, or central line not in place; IV infusing or unable to flush. Inactive Administered Medications - up to 3 most recent administrations Medication Order MAR Action Action Date Dose Rate Site Zoledronic Acid (Reclast) 5 mg in 100 mL PREMIX ivpb 5 mg, IV Piggyback, ONCE, 1 dose, On Wed04/05/23 at 1715 Start Infusion 04/05/2023 3:38 PM EDT 5 mg 400 mL/hr documented in this encounter Advance Directives Latest [...] the patient have Health Care Power of Coating Inspector? No Full Code 08/14/2010 2:57 PM 08/15/2010 2:24 PM Thi s order reflects the patients wishes and were consensually agreed upon. Care Teams Guard Captain Relationship Specialty Start Date End Date Zachariah Daurte DO [address] [place] [address] PCP - General Family Medicine 12/20/20 documented as of this encounter
--- OUTSIDE RECORDS SUMMARY | 2023-08-28 08:39 | External Medical Summary ---
Author Name Unknown Address Unknown Organization K01:LABORATORY [facility] [place] - [address] [place] [address] [place] [address] Laboratory Report Ordering Provider Test Date Status MARJORIE SUGGSO 04/14/2023 11:52:15 Final Observation Date Value Abnormality Reference (Units ) Status HbA1C 04/14/2023 11:52:15 7.0 Above high normal 4. 0-5.6 (%) Final The use of HbA1c to monitor glycemic status is based on normal hemoglobin and HbA composition. This test should not be used in patients with abnormal hemoglobin that affects the half life of the red blood cell or the in vivo glycation rates. Glucose, estimated average 04/14/2023 11:52:15 154 Above high normal <126 (mg/dL) Shaquille daigle Performing Location LABORATORY [facility] [place] - [address] [place] [address]
--- OUTSIDE RECORDS SUMMARY | 2023-08-28 08:39 | External Medical Summary | Summary of Care ---
Author Name Unknown Organization [facility] Address [address] [facility] [address] [place] [address] Phone [phone] Care Team Providers Care Software Consultant Name Role Phone Zachariah Duarte DO Primary Care Provider Reason for Visit * Reason Onset Date Comments Health Maintenance 04/07/2023 Encounter Details Date Type Department Care Team Description 04/07/[address] 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 17 Last Assessment & Plan: Cognition at baseline -not tolerating Aricept HTN (hypertension) 09/28/2012 Atherosclerosis of [place] artery of extr emity 06/22/2012 Obstructive [...] encounter Miscellaneous Notes * Telephone Encounter - Carolina Kendrick LPN - 04/07/2023 9:02 AM EDT Care Gaps Comprehensive Care Outreach Last Office/Telemedicine Visit: 02/09/2023 (in office), Visit date not found (telemedicine) Next Office Visit: 05/18/2023 Hemoglobin AIC Results: Lab Results Component Value Date/Time HEMOGLOBIN A1C 10.4 (H) 10/09/1996 08:35 AM HEMOGLOBIN A1C - [facility] 5.6 07/02/2022 04:17 PM HEMOGLOBIN A1C - [facility] 7.2 (H) 02/06/2022 04:36 PM HEMOGLOBIN A1C - [facility] 7.0 (H) 07/01/2021 12:32 PM HEMOGLOBIN A1C - [facility] 6.8 (H) 03/22/2020 03:38 PM HEMOGLOBIN A1C - [facility] 7.4 (H) 08/30/2019 09:21 AM HEMOGLOBIN A1C - [facility] 6.7 (H) 03/02/2019 06:46 AM Reviewed Health Maintenance below: Health Maintenance Topic Date Due COVID-19 Vaccine (6 - Moderna series) 02/17/2022 Albumin/Creatinine Ratio 10/20/2022 COLONOSCOPY-EVERY 2 YRS AGES 18-100 11/19/2022 HbA1c 12/30/2022 DIABETES-FOOT EXAM 02/06/2023 *BISPHONATE OR OTHER ACCEPTABLE MEDICATION NEEDED FOR OSTEOPOROSIS (REFER TO SMARTSET #1146) Never done Influenza Vaccine (FLU shot) (1) 04/23/2023 Colon my g Labs/urine already ordered Care Gap Outreach Action Taken: Myportal message sent documented in this encounter Plan of Treatment Upcoming Encounters Date Type Specialty Care Team Description 04/08/2023 Laboratory Laboratory Processing [facility] [place] Mobile Home Draw [address] [place] [address] 04/09/2023 [facility] [address] [place] [address] 05/18/2023 Office Visit Family Medicine Zachariah Duarte, DO [address] [place] [address] 07/22/2023 Office Visit Sleep Disorders Marnie Hartman, [address] [place] [address] 03/28/2024 Office Visit Rheumatology Yudi Horowitz CRNP [facility] [place] [address] Scheduled Procedures Name Priority Associated Diagnoses Date/Ti [...] Additional history exists CKD PHOS USE SMARTSET 91092 07/02/202306/23, 07/01/2021, 03/22/2020 DIABETES-EYE EXAM 07/20/2023 07/20/2022, , 08/26/2020, Additional history exists O2 ASSESSMENT COMPLETED IN PAST YEAR FOR COPD 08/10/2023 08/10/2022 DISCUSS TOBACCO CESSATION (REFER TO SMARTSET #8151) 08/26/2023 08/26/2022, 05/27/2022, 02/11/2022, Additional history exists GFR 09/29/2023 03/29/2023, 11/21, 07/02/2022, Additional history exists Depression Screening, Annual for Pts 12 and Over 11/21/2023 11/20/2022 DXA Scan 03/11/2024 03/11/2023 CKD HGB USE SMARTSET 40980 03/29/202403/29, 03/29/2023, 12/01/2022, Additional history exists DTaP,Tdap,and Td Vaccines (3 - Td or Tdap) 01/11/2028 01/10/2018, 10/03/2012 Pneumococcal Vaccine: 65+ Years Completed 05/14/2015, 09/11/2009, 07/12/2003 Zoster Vaccines Completed 03/22/2020, 08/30/2019 COLONOSCOPY-EVERY 5 YRS AGES 18-100 Discontinued 11/19/2020, 11/19/2020, 05/16/2015, Additional history exists Alpha-1 Antitrypsin Completed 03/11/2022 VITAMIN D LEVEL ONCE IN A LIFETIME-USE SMARTSET# 57041 Completed 03/29/2023, 05/12/2014 GARDASIL-HPV IMMUNIZATION SERIES Aged [...] the patient have Health Care Power of Track Subway Repair Supervisor? No Full Code 08/14/2010 2:57 PM 08/15/2010 2:24 PM Thi s order reflects the patients wishes and were consensually agreed upon. Care Teams Software Consultant Relationship Specialty Start Date End Date Zachariah Duarte DO [address] [place] [address] PCP - General Family Medicine 12/20/20 documented as of this encounter
--- OUTSIDE RECORDS SUMMARY | 2023-08-28 08:39 | External Medical Summary | Summary of Care ---
Author Name Unknown Organization [facility] Address [address] [facility] [place] [address] Phone [phone] Care Team Providers Care Urban Designer Name Role Phone Kj Duarteinic Primary Care Provider [phone] Encounter Details Date Type Department Care Team Description 04/05/2023 Orders Only Rheumatology, [address] [address] [place] [address] [place] [address] Allergies Active Allergy Reactions Severity Noted Date [...] for lantus 1 box 11 09/11/2009 Active [employer] ULTRA 2 W/DEVICE KITIndications:DM type 2, goal A1C 7-8 use as directed 1 Kit 0 03/09/2012 Active [employer] DELICA LANCETS MISCIndications:DM type 2, goal A1C [...] 1 Each 0 04/09/2022 Active oxygen IN GASIndications:Geneticist bobbi respiratory failure with hypoxia (HCC),Centrilobular emphysema [...] 90 Tablet 2 11/13/2022 4 Active Umeclidinium [place] 62.5 MCG/ACT Inhalation Aerosol Powder Breath Activated (INCRUSE ellipta)Indications :COPD, group B, by GOLD 2017 classification ([facility]) INHALE ONE PUFF BY MOUTH [...] 12 Hour (Ranexa)Indications :Coronary artery disease of [place] artery of [place] heart with stable angina pectoris (HCC) TAKE [...] artery disease of n ative artery of [place] heart with stable angina pectoris 01/30/2017 Overview: More specific. 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 17 Last Assessment & Plan: Cognition at baseline -not tolerating Aricept HTN (hypertension) 09/28/2012 Atherosclerosis of [place] artery of extr emity 06/22/2012 Obstructive sleep [...] Chair 3 Hem Onc Scenery [address] [place] [address] 04/07/2023 Scheduled Telephone [facility] Nurse Triage [address] [place] [address] 04/08/2023 Laboratory Laboratory Processing [facility] [address] [facility] [id number] 04/09/2023 [facility] [address] [facility] [place] [address] 05/18/2023 Office Visit Family Medicine Zachariah Duarte DO [address] [place] [address] 07/22/2023 Office Visit Sleep Disorders HartmanMarniearet, DO [address] [place] [address] 03/28/2024 Office Visit Rheumatology Yudi Horowitz CRNP [address] [facility], [place] [address] Scheduled Procedures Name Priority Associated Diagnoses Date/Ti [...] Additional history exists CKD PHOS USE SMARTSET 83269 07/02/202306/23, 07/01/2021, 03/22/2020 DIABETES-EYE EXAM 07/20/2023 07/20/2022, , 08/26/2020, Additional history exists O2 ASSESSMENT COMPLETED IN PAST YEAR FOR COPD 08/10/2023 08/10/2022 DISCUSS TOBACCO CESSATION (REFER TO SMARTSET #3291) 08/26/2023 08/26/2022, 05/27/2022, 02/11/2022, Additional history exists GFR 09/29/2023 03/29/2023, 11/21, 07/02/2022, Additional history exists Depression Screening, Annual for Pts 12 and Over 11/21/2023 11/20/2022 DXA Scan 03/11/2024 03/11/2023 CKD HGB USE SMARTSET 42414 03/29/202403/29, 03/29/2023, 12/01/2022, Additional history exists DTaP,Tdap,and Td Vaccines (3 - Td or Tdap) 01/11/2028 01/10/2018, 10/03/2012 Pneumococcal Vaccine: 65+ Years Completed 05/14/2015, 09/11/2009, 07/12/2003 Zoster Vaccines Completed 03/22/2020, 08/30/2019 COLONOSCOPY-EVERY 5 YRS AGES 18-100 Discontinued 11/19/2020, 11/19/2020, 05/16/2015, Additional history exists Alpha-1 Antitrypsin Completed 03/11/2022 VITAMIN D LEVEL ONCE IN A LIFETIME-USE SMARTSET# 64893 Completed 03/29/2023, 05/12/2014 GARDASIL-HPV IMMUNIZATION SERIES Aged [...] the patient have Health Care Power of Crown Ceramist? No Full Code 08/14/2010 2:57 PM 08/15/2010 2:24 PM Thi s order reflects the patients wishes and were consensually agreed upon. Care Teams Urban Designer Relationship Specialty Start Date End Date Zachariah Duarte DO [address] [place] [address] PCP - General Family Medicine 12/20/20 documented as of this encounter
--- OUTSIDE RECORDS SUMMARY | 2023-08-28 08:39 | External Medical Summary ---
Author Name Unknown Address Unknown Organization K01:LABORATORY [facility] [place] - [address] [place] [address] Laboratory Report Ordering Provider Test Date Status BRAYAN NICHOLAS 04/14/2023 11:52:15 Final Observation Date Value Abnormality Reference (Units ) Status Triglyceride 04/14/2023 11:52:15 135 <=174 ( mg/dL) Final Triglyceride Reference Range s (mg/dL):
<150 Acceptable
150-174 Borderline high
175-499 High
>=500 Very high Cholesterol 04/14/2023 11:52:15 122 <200 (mg /dL) Final Total Cholesterol Reference Ranges (mg/dL):
<200 Desirable
200-239 Borderline high
>=240 High HDL 04/14/2023 11:52:15 38 Below low normal >39 (mg/dL) Final HDL Cholesterol Reference Ra nges (mg/dL):
>=60 High (Desirable)
<50 Low (Undesirable) For Females
<40 Low (Undesirable) For Males NON-HDL CHOLESTEROL 04/14/2023 11:52:15 84 <=159 (mg/dL) Final Non-HDL Cholesterol Referenc e Range (mg/dL):
<100 Target level for high risk ASCVD patient
<130 Optimal for general population
130-159 Near optimal for general population
160-189 Borderline High
190-219 High
>=220 Very High LDL, (calculated) 04/14/2023 11:52:15 57 <= 129 (mg/dL) Final LDL Cholesterol Reference Ra nges (mg/dL):
<70 Target level for high risk ASCVD patient
<100 Optimal for general population
100-129 Near optimal for general population
130-159 Borderline high
160-189 High
>=190 Very high Performing Location LABORATORY [facility] [place] - [address] [facility] [address]
--- OUTSIDE RECORDS SUMMARY | 2023-08-28 08:39 | External Medical Summary | Summary of Care ---
Author Name Unknown Organization [facility] Address [address] [facility] [place] [address] Phone [phone] Care Team Providers Care Blueprinting Machine Operator Name Role Phone Zachariah Duarte DO Primary Care Provider Reason for Visit * Reason Comments Dosage Adjustment Via Phone (anticoag Cl inic) Encounter Details Date Type Department Care Team Description 04/09/2023 Anticoagulation Pharmacy Call Center [phone] [place] [address] [facility] [address] [facility] [place] [address] Anticoagulation management encounter* Allergies Active Allergy Reactions Severity Noted Date Comments Propoxyphene N-Acetaminophen 06/22/2012 N/V Fentanyl Nausea/vomiting 10/15/2009 Oxycodone High 01/21/2023 Other reaction(s): vomiting Oxycodone-Acetaminophen Nausea/vomiting High 010 documented as of this encounter (statuses as of 04/09/2023) Medications Medication Sig Dispensed Refills Start Date [...] 1 Each 0 04/09/2022 Active oxygen IN GASIndications: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 respiratory failure with hypoxia (HCC),Centrilobular emphysema [...] 90 Tablet 2 11/13/2022 4 Active Umeclidinium [place] 62.5 MCG/ACT Inhalation Aerosol Powder Breath Activated (INCRUSE ellipta)Indications :COPD, group B, by GOLD 2017 classification ([facility]) INHALE ONE PUFF BY MOUTH EVERY DAY [...] 12 Hour (Ranexa)Indications :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 17 Last Assessment & Plan: Cognition at baseline -not tolerating Aricept HTN (hypertension) 09/28/2012 Atherosclerosis of crow artery of extr emity 06/22/2012 Obstructive sleep apnea 01/13/2010 Overview: ICD-10 update of inactive term Last Assessment & Plan: Compliant with CPAP Old myocardial infarction 10/25/2009 Lumbar disc disorder with myelopathy Overview: Fentanyl patch caused severe nausea and vomiting Failed ultram Oxycodone caused nausea Preglaucoma 08/29/1998 History of TIA (transient ischemic attac k) documented as of this encounter (statuses as of 04/09/2023) Resolved Problems Problem Noted Date Resolved Date [...] as of this encounter (statuses as of 04/09/2023) Immunizations Name Administration Dates Next Due COVID-19 [...] of this encounter Progress Notes * SHIKHA Sims - 04/09/2023 9:28 AM EDT Contacts Type Contact Phone/Fax 04/09/2023 09:26 AM EDT Phone (Outgoing) Kaleb Oakley (Self) [phone] (H) Left Message Subjective Advised patient to contact Anticoagulation Clinic if any unusual bruising or bleeding, recent illness, changes in medication, or questions/concerns. PT/INR results, Coumadin dose instructions, and next PT/INR date communicated as noted by Pharmacist: Yes SHIKHA SIMS 04/09/2023, 9:28 AM * Layne Fuller RP - 04/09/2023 8:25 AM EDT Coumadin Clinic (region specific) Objective Current Warfarin Dose As of 04/09/2023 Warfarin maintenance plan: 2.5 mg (5 mg x 0.5) every day INR Result As of 04/09/2023 INR goal: 2.0-3.0 INR used for dosin.7 (04/08/2023) Assessment & Plan Warfarin Plan As of 04/09/2023 Full warfarin instructions: 2.5 mg every day No change documented: Layne Fuller RPh Next INR check: 04/29/2023 Repeat PT/INR in 3 week(s) Weekly dose: not changed Additional Dosing Information: Description [facility] Tech to contact patient with dose instructions as noted. Layne Fuller RPh 04/09/2023, 8:25 AM documented in this encounter Plan of Treatment Upcoming Encounters Date Type Specialty Care Team Description 05/11/2023 Scheduled Telephone [facility] Nurse Triage [address] [place] [address] 05/18/2023 Office Visit Family Medicine Zachariah Duarte, DO [address] [place] [address] 07/22/2023 Office Visit Sleep Disorders Marnie Hartman, [address] [place] [address] 03/28/2024 Office Visit Rheumatology Yudi Horowitz CRNP [address] [facility], [place] [address] Scheduled Procedures Name Priority Associated Diagnoses Date/Ti [...] Additional history exists CKD PHOS USE SMARTSET 46660 07/02/202306/23, 07/01/2021, 03/22/2020 DIABETES-EYE EXAM 07/20/2023 07/20/2022, , 08/26/2020, Additional history exists O2 ASSESSMENT COMPLETED IN PAST YEAR FOR COPD 08/10/2023 08/10/2022 DISCUSS TOBACCO CESSATION (REFER TO SMARTSET #3291) 08/26/2023 08/26/2022, 05/27/2022, 02/11/2022, Additional history exists GFR 09/29/2023 03/29/2023, 11/21, 07/02/2022, Additional history exists Depression Screening, Annual for Pts 12 and Over 11/21/2023 11/20/2022 DXA Scan 03/11/2024 03/11/2023 CKD HGB USE SMARTSET 40375 03/29/202403/29, 03/29/2023, 12/01/2022, Additional history exists DTaP,Tdap,and Td Vaccines (3 - Td or Tdap) 01/11/2028 01/10/2018, 10/03/2012 Pneumococcal Vaccine: 65+ Years Completed 05/14/2015, 09/11/2009, 07/12/2003 Zoster Vaccines Completed 03/22/2020, 08/30/2019 COLONOSCOPY-EVERY 5 YRS AGES 18-100 Discontinued 11/19/2020, 11/19/2020, 05/16/2015, Additional history exists Alpha-1 Antitrypsin Completed 03/11/2022 VITAMIN D LEVEL ONCE IN A LIFETIME-USE SMARTSET# [id number] Completed 03/29/2023, 05/12/2014 GARDASIL-HPV IMMUNIZATION SERIES Aged [...] the patient have Health Care Power of Landscaping Specialist? No Full Code 08/14/2010 2:57 PM 08/15/2010 2:24 PM Thi s order reflects the patients wishes and were consensually agreed upon. Care Teams Blueprinting Machine Operator Relationship Specialty Start Date End Date Zachariah Duarte DO [address] [place] [address] PCP - General Family Medicine 12/20/20 documented as of this encounter
--- OUTSIDE RECORDS SUMMARY | 2023-08-28 08:40 | External Medical Summary | Summary of Care ---
Author Name Unknown Organization [facility] Address [address] [facility] [place] [address] Phone [phone] Care Team Providers Care Recruiting Operations Consultant Name Role Phone Kj Duarteinic Primary Care Provider Reason for Visit * Reason Onset Date Comments Medication Pre-auth 03/29/2023 Reclast Encounter Details Date Type Department Care Team Description 03/29/2023 Telephone Rheumatology [facility] [address] [place] [address] Yudi Horowitz CRNP [address] [place] [id number] Medication Pre-auth (Reclast ) Allergies Active Allergy Reactions Severity Noted Date Comments Propoxyphene N-Acetaminophen 06/22/2012 N/V Fentanyl Nausea/vomiting 10/15/2009 Oxycodone High 01/21/2023 Other reaction(s): vomiting Oxycodone-Acetaminophen Nausea/vomiting High 010 documented as of this encounter (statuses as of 03/30/2023) Medications Medication Sig Dispensed Refills Start Date End Date Status SYRINGE (DISPOSABLE) 5 ML MISCIndications:DM type 2 causing neurological disease (HCC) use as directed for lantus 1 box 11 09/11/2009 Active e-TagTOUCH ULTRA 2 W/DEVICE KITIndications:DM type 2, goal [...] 1 Each 0 04/09/2022 Active oxygen IN GASIndications:Complaint Coordinator bobbi respiratory failure with hypoxia (HCC),Centrilobular [...] 90 Tablet 2 11/13/2022 4 Active Umeclidinium [place] 62.5 MCG/ACT Inhalation Aerosol Powder Breath Activated [...] 12 Hour (Ranexa)Indications :Coronary artery disease of [place]shoshone artery of [place]shoshone heart with stable angina pectoris (HCC) TAKE [...] as of this encounter (statuses as of 03/30/2023) Active Problems Problem Noted Date Age-related osteopor [...] artery disease of n ative artery of pa[place]shoshone heart with stable angina pectoris 01/30/2017 Overview: More specific. 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 17 Last Assessment & Plan: Cognition at baseline -not tolerating Aricept HTN (hypertension) 09/28/2012 Atherosclerosis of [place]oshone artery of extr emity 06/22/2012 Obstructive sleep apnea 01/13/2010 Overview: ICD-10 update of inactive term Last Assessment & Plan: Compliant with CPAP Old myocardial infarction 10/25/2009 Lumbar disc disorder with myelopathy Overview: Fentanyl patch caused severe nausea and vomiting Failed ultram Oxycodone caused nausea Preglaucoma 08/29/1998 History of TIA (transient ischemic attac k) documented as of this encounter (statuses as of 03/30/2023) Resolved Problems Problem Noted Date Resolved Date [...] as of this encounter (statuses as of 03/30/2023) Immunizations Name Administration Dates Next Due COVID-19 [...] Miscellaneous Notes * Telephone Encounter - VENICE Dumont - [...] received for Reclast 5mg IV once yearly [place] created and routed to provider for signature Rheum: When the labs and auth are back and patient is ready to be scheduled, please [place] [phone] for scheduling. Thank you! * Telephone Encounter - Елена Up LPN - 03/29/2023 11:33 AM EDT Please auth * Telephone Encounter - ZEYAD Adams - 03/29/2023 11:13 AM EDT Can we please look into coverage for Reclast, GI contraindication to Fosamax. Labs due. documented in this encounter Plan of Treatment Upcoming Encounters Date Type Specialty Care Team Description 04/08/2023 Laboratory Laboratory Processing [facility] [address] [facility] [address] 04/09/2023 [place] [address] [address] [facility] [address] 05/18/2023 Office Visit Family Medicine Zachariah Duarte, DO [address] [place] [address] 07/22/2023 Office Visit Sleep Disorders Marnie Hartman, [address] [place] [address] 03/28/2024 Office Visit Rheumatology [facility] Horowitz [facility] [address] [facility] [address] Scheduled Procedures Name Priority Associated Diagnoses Date/Ti me COLONOSCOPY FLEXIBLE PROXIMAL DIAGNOSTIC Recall History of colon polyps Health Maintenance Due Date Last Done Comments COVID-19 Vaccine (6 - Moderna series) 02/17/2022 12/23/2021, 07/24/2021, 07/24/2021, Additional history exists Albumin/Creatinine Ratio 10/20/202210/20/2 022, 08/11/2017, 10/31/2015, Additional [...] Additional history exists CKD PHOS USE SMARTSET 85743 07/02/202306/23, 07/01/2021, 03/22/2020 DIABETES-EYE EXAM 07/20/2023 07/20/2022, , 08/26/2020, Additional history exists O2 ASSESSMENT COMPLETED IN PAST YEAR FOR COPD 08/10/2023 08/10/2022 DISCUSS TOBACCO CESSATION (REFER TO SMARTSET #3291) 08/26/2023 08/26/2022, 05/27/2022, 02/11/2022, Additional history exists GFR 09/29/2023 03/29/2023, 11/21, 07/02/2022, Additional history exists Depression Screening, Annual for Pts 12 and Over 11/21/2023 11/20/2022 DXA Scan 03/11/2024 03/11/2023 CKD HGB USE SMARTSET 21967 03/29/202403/29, 03/29/2023, 12/01/2022, Additional history exists DTaP,Tdap,and Td Vaccines (3 - Td or Tdap) 01/11/2028 01/10/2018, 10/03/2012 Pneumococcal Vaccine: 65+ Years Completed 05/14/2015, 09/11/2009, 07/12/2003 Zoster Vaccines Completed 03/22/2020, 08/30/2019 COLONOSCOPY-EVERY 5 YRS AGES 18-100 Discontinued 11/19/2020, 11/19/2020, 05/16/2015, Additional history exists Alpha-1 Antitrypsin Completed 03/11/2022 VITAMIN D LEVEL ONCE IN A LIFETIME-USE SMARTSET# [id number] Completed 03/29/2023, 05/12/2014 GARDASIL-HPV IMMUNIZATION SERIES Aged [...] the patient have Health Care Power of Compensation Business Partner? No Full Code 08/14/2010 2:57 PM 08/15/2010 2:24 PM Thi s order reflects the patients wishes and were consensually agreed upon. Care Teams Recruiting Operations Consultant Relationship Specialty Start Date End Date Zachariah Duarte DO [address] [place] [address] PCP - General Family Medicine 12/20/20 documented as of this encounter
--- OUTSIDE RECORDS SUMMARY | 2023-08-28 08:40 | External Medical Summary | Summary of Care ---
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 Role Phone Zachariah Duarte DO Primary Care Provider Reason for Visit * Reason Comments NEW PATIENT Referred by Dr Patricia gayle for [facility] * Evaluate & Treat - Unlimited Visits (Within 30 days (routine)) - Authorized Specialty Diagnoses / Procedures Referred By Tito zaidi Referred To Contact Rheumatology Diagnoses T12 compression fracture, with routine healing, subsequent encounter Zachariah Duarte DO [address] [place] [address] Referral ID Status Reason Start Date Expiration Date Visits Requested Visits Authorized [id number] Authorized Specialty Services Required 02/09/2023 [id number] Encounter Details Date Type Department Care Team Description 03/29/2023 Office Visit Rheumatology [place] [id number] [facility] [place] [address] Yudi Horowitz CRNP [facility] [place] [address] 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*; Osteopenia of left hip; Gait disturbance Allergies Active Allergy Reactions Severity Noted Date Comments Propoxyphene N-Acetaminophen 06/22/2012 N/V Fentanyl Nausea/vomiting 10/15/2009 Oxycodone High 01/21/2023 Other reaction(s): vomiting Oxycodone-Acetaminophen Nausea/vomiting High 010 documented as of this encounter (statuses as of 03/29/2023) Medications Medication Sig Dispensed Refills Start Date End Date Status SYRINGE (DISPOSABLE) 5 ML MISCIndications:DM type 2 causing neurological disease (HCC) use as directed for lantus 1 box 11 09/11/2009 Active Green BiologicsTOUCH ULTRA 2 W/DEVICE KITIndications:DM type 2, goal A1C 7-8 use as directed 1 Kit 0 03/09/2012 Active Green BiologicsTOUCH DELICA LANCETS MISCIndications:DM type 2, goal A1C 7-8 use up to 4 times daily 100 Each 11 03/09/2012 Active Green BiologicsTOUCH ULTRA BLUE STRPIndications:DM type 2, goal A1C [...] of less than 8.0% ([facility]) Use to inject insulin 5 times daily 200 Each 11 06/23/2018 Active Misc Natural Products (T-RELIEF CBD+13) SUBL Place under the tongue. 0 Active insulin isophane human (NOVOLIN N RELION) 100 UNIT/ML injectionIndication s:Type 1 diabetes mellitus with hemoglobin A1c goal of less than 8.0% ([facility]) INJECT 36 UNITS SUBCUTANEOUSLY AT NOON AND INJECT 25 UNITS AT MIDNIGHT DAILY 30 mL 0 01/17/2020 Active insulin REGULAR human (NOVOLIN R RELION) 100 UNIT/ML injectionIndication s:Type 1 diabetes mellitus with hemoglobin A1c goal of less than 8.0% (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) INHALE ONE PUFF BY MOUTH EVERY [...] 12 Hour (Ranexa)Indications :Coronary artery disease of [place] artery of [place] heart with stable angina pectoris (HCC) TAKE [...] as of this encounter (statuses as of 03/29/2023) Active Problems Problem Noted Date Age-related osteopor [...] artery disease of n ative artery of [place] heart with stable angina pectoris 01/30/2017 Overview: More specific. 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 Last Assessment & Plan: Cognition at baseline -not tolerating Aricept HTN (hypertension) 09/28/2012 Atherosclerosis of [place] artery of extr emity 06/22/2012 Obstructive sleep apnea 01/13/2010 Overview: ICD-10 update of inactive term Last Assessment & Plan: Compliant with CPAP Old myocardial infarction 10/25/2009 Lumbar disc disorder with myelopathy Overview: Fentanyl patch caused severe nausea and vomiting Failed ultram Oxycodone caused nausea Preglaucoma 08/29/1998 History of TIA (transient ischemic attac k) documented as of this encounter (statuses as of 03/29/2023) Resolved Problems Problem Noted Date Resolved Date [...] as of this encounter (statuses as of 03/29/2023) Immunizations Name Administration Dates Next Due COVID-19 [...] Asked; Counseling Given: Not Answered Comments:2 - 3 cigarettes per month Alcohol Use Standard Drinks/Week [...] Sign Reading Time Taken Comments Blood Pressure 130/60 03/29/2023 9:55 AM EDT Pulse - - Temperature 36 C (96.8 F) 03/29/2023 9:55 AM EDT Respiratory Rate - - Oxygen Saturation - - Inhaled Oxygen Concentration - - Weight 91.2 kg (201 lb) 03/29/2023 9:55 AM EDT Height - - Body Mass Index 34.5 03/16/2023 1:47 PM EDT documented in this encounter Functional [...] this encounter Patient Instructions * Patient Instructions* ZEYAD Adams - 03/29/2023 10:36 AM EDT Labs Auth for Reclast Follow up 1 year DEXA scan 2 years from last scan documented in this encounter Progress Notes * ZEYAD Adams - 03/29/2023 9:59 AM EDT CONSULT - [facility] ([facility]) - baseline visit Supervised by: Dr. El Paz HPI: Kaleb Oakley is a 77 year old male who is seen in consultation at the request of Zachariah Duarte DO for evaluation of low bone density, osteoporosis and fracture risk reduction. is at this visit helping recall the timeline of events. They reported he had a compression fraction of the spinein December 2022 after a fall and was hospitalized and went to rehab. DXA scan complete on 03/11/2023. Reports not eating enough calcium in diet, but does take a Vit D supplement daily. Reports having a life alert necklace now. REASON FOR CONSULT: Fragility fracture of spine and question concerning need for treatment He had a DXA scan performed on 03/11/2023 at RESULTS: Lumbar spine: INVALID Left femoral neck: 0.789 gms/cm2 T-score: -1.0 Using the NOF/WHO FRAX calculator, the 10 year absolute risk for any major osteoporotic fracture is5.8 % and the risk for hip fracture is 1.6 %. IMPRESSIONS: Fracture risk is based on current National Osteoporosis Foundation (www.nof.org) Clinicians Guide and [place] Association of Clinical Endocrinology (AACE) Guidelines (www.aace.com) and the application of current WHO FRAX tool (https://www.kavita.ac.uk/FRAX/) as well as the 2017 [place] Collegeof Rheumatology Glucocorticoid Induced Osteoporosis (GIOP) Guidelines (rheumatology.org/Practice-Eric lity/Clinical-Support/Hvzqivgt-Obqmpvbw-Ymazgrmeid) using Bone mineral density derived T-scores andclinical risk factors obtained from the patient questionnaire. 1. The fracture risk is HIGH (based on non-traumatic fracture of the spine or hip) 2. The quality of the examination is GOOD. The values at the lumbar spine are falsely elevated, andtherefore the values at the hip/femoral neck are a better reflection of fracture risk in this patient. 3. No previous study for comparison. Labs: Satisfactory: None needed Unsatisfactory: calcium 8.3 BONE HEALTH SUMMARY: Risks: Family History Fx: No Personal History Fx: Yes, Fracture site: Spine, # of fractures 2 (T12 & L1; Hospitalized for fracture: Yes, Name of hospital(s): [facility] and date(s): 01/21/23- Current Smoker: Yes 4 per month Chronic Glucocorticoid use: No Rheumatoid Arthritis: No Alcohol 3 or more per day: No He has has lost 2 inches in height. He is active with usual activities of daily living. He is unsteady at times and prone to falls. He does not take any medications which predispose to falls. He uses a walker to ambulate. PREVIOUS MEDS: None ROS: OSTEOPOROSIS PMH: Reviewed and Negative [facility] PAST SURGICAL HISTORY: Gi bleed stomach and intestines (Cautarized) He has a history of reflux symptoms. He has not had previous thrombotic problems. He has had no previous history of hypercalcemia, hyperparathyroidism, Paget's disease, radiation to bone, or bone tumors. REVIEW OF SYSTEMS: . Constitutional: normal . Head normal . Eyes: normal . Ears, nose, throat, mouth: dry mouth . Cardiovascular: normal . Respiratory: dyspnea on exertion . Gastrointestinal: normal . Musculoskeletal: normal . Neurologic: normal . Skin: normal . Endocrine: normal . Genitourinary: normal Past Medical History: Diagnosis Date AAA (abdominal aortic aneurysm) (HCC) 04/04/2014 ASCVD (arteriosclerotic cardiovascular disease) Benign neoplasm of colon 03/17/2010 diverticulosis, polyps x2 path shows adenomatous repeat in 5 years Cardiac catheterization as the cause of abnormal reaction of patient, or of later complication,without mention of misadventure at time of procedure Cardiac Cath COPD (chronic obstructive pulmonary disease) (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) 07/01/[address] NSTEMI (non-ST elevated myocardial infarction) ([facility]) 03/02/2019 Sleep apnea, obstructive Venous thrombosis 09/26/2012 LE DVT - Aug 2012 Past Surgical History: Procedure Laterality Date ANGIOLPLASTY ILIAC,PERCUT 08/14/2010 percutaneous angioplasty of left external iliac and right common iliac stenoses, Dr. Royal AORTOGRAM ABDOMINAL-TECH ONLY 08/14/2010 IMAGING S&I ABDOMINAL AO performed by MICHAEL ROYAL at OR [facility] BYPASS GRAFT ANGIOGRAPHY W/LEFT HEART CATH Left 01/29/2017 BYPASS GRAFT ANGIOGRAPHY W/LEFT HEART CATH performed by Tiffanie Contreras MD at [facility]ARD[facility]S [facility] BYPASS GRAFT ANGIOGRAPHY W/LEFT HEART CATH Left 03/02/2019 BYPASS GRAFT ANGIOGRAPHY W/LEFT HEART CATH performed by Marco Antonio Cerda MD at CARDIAC LABS [facility] COLONOSCOPY W/ BIOPSY (RECTUM) 03/07/2010 done diverticulosis, polyps x2 path shows adenomatous repeat in 5 years COLONOSCOPY, DIAGNOSTIC (RECTUM) 11/19/2020 tubular adenoma polyps, repeat 2 yrs health permiting/ COLONOSCOPY FLEXIBLE PROXIMAL DIAGNOSTIC performed by Silvia Howard MD at ENDOSCOPY [facility] COLONOSCOPY, GI REFERRAL OP 10/04/2003 normal CORONARY ARTERY BYPASS, SINGLE 11/21/1997 CABG(Peripheral Bypass) ?Triple CORONARY ARTERY DILATION, BALLOON 08/23/1988 Angioplasty (PALMAZ-LIDIA) EGD, FLEXIBLE, DIAGNOSTIC N/A 08/10/2022 gastritis/single bleeding angioectasia in stomach, treated with APC/biopsies normal/ESOPHAGOGASTRODUODENOSCOPY (EGD), FLEXIBLE, TRANSORAL, DIAGNOSTIC performed by Nelly Perez DO at OR [facility] INJECTION LUMBAR/SACRAL 08/23/2011 IR ARTERIOGRAM EXTREMITY BILATERAL 08/14/2010 ANGIOGRAPHY EXTREMITY BILATERAL performed by MICHAEL ROYAL at OR [facility] LAMINECTOMY/LAMINOTOMY, LUMBAR, GUIDE 09/08/2012 L4-5, L5-S1 laminectomy MISCELLANEOUS ORDER ([facility] ONLY) Angioplasty in leg, right REMOVE CATARACT, INSERT LENS PROSTH 10/22/2011 rt eye REMOVE CATARACT, INSERT LENS PROSTH 10/22/2011 left eye Current Outpatient Medications Medication Sig Dispense Refill SYRINGE (DISPOSABLE) 5 ML MISC use as directed for lantus 1 box 11 Green BiologicsTOUCH ULTRA 2 W/DEVICE KIT use as directed 1 Kit 0 Green BiologicsTOUCH DELICA LANCETS MISC use up to 4 [...] (T-RELIEF CBD+13) SUBL Place under the tongue. insulin isophane human (NOVOLIN N RELION) 100 UNIT/ML injection INJECT 36 UNITS SUBCUTANEOUSLY AT NOON AND INJECT 25 UNITS AT MIDNIGHT DAILY 30 mL 0 insulin REGULAR human (NOVOLIN R RELION) 100 UNIT/ML injection Inject 12 units with breakfast, 10 units with lunch, 15 units with dinner DISPENSE 5 vials (Patient taking differently: Inject 15 Units under the skin in the morning and 15 Units at noon and 15 Units before bedtime. With meals. DISPENSE 5 vials.) 5 Each 3 CPAP every night at bedtime . oxygen [...] standing concentrator with sleep 1 Each 0 Ondansetron HCl 4 MG Oral Tablet (Zofran) TAKE ONE TABLET BY MOUTH EVERY 6 HOURS NEEDED FOR NAUSEA. 15 Tablet 0 Ipratropium-Albuterol 0.5-2.5 (3) MG/3ML Inhalation Solution (Duoneb) INHALE 3 ML (1 VIAL) BY MOUTH VIA NEBULIZER IN THE MORNING AND 3 ML AT NOON THEN 3 ML IN THE EVENING AND 3 ML BEFORE BEDTIME 360 mL 11 Docusate Sodium 100 MG Oral Tablet Take 1 Tablet by mouth in the morning and 1 Tablet before bedtime. Tylenol 325 MG Oral Capsule (Acetaminophen) Take 650 mg by mouth in the morning and 650 mg before bedtime. Metoprolol Tartrate 100 MG Oral Tablet (Lopressor) TAKE 1 TABLET BY MOUTH IN THE MORNING AND 1 TABLET BEFORE BEDTIME 180 Tablet 3 Memantine HCl 5 MG Oral Tablet (Namenda) TAKE ONE TABLET BY MOUTH IN THE MORNING AND ONE TABLETBEFORE BEDTIME 60 Tablet 5 Clopidogrel Bisulfate 75 MG Oral Tablet (pLAVix) TAKE ONE TABLET BY MOUTH EVERY DAY 100 Tablet 1 traZODone HCl 100 MG Oral Tablet (Desyrel) TAKE ONE TABLET BY MOUTH AT BEDTIME NEEDED FOR SLEEP 90 Tablet 2 Umeclidinium [place] 62.5 MCG/ACT Inhalation Aerosol Powder Breath Activated (INCRUSE ellipta) INHALE ONE PUFF BY MOUTH EVERY DAY IN THE MORNING 90 Each 3 Warfarin Sodium 5 MG Oral Tablet (Coumadin) TAKE ONE TABLET BY MOUTH AT BEDTIME 90 Tablet 3 Furosemide 20 MG Oral Tablet (Lasix) TAKE ONE TABLET BY MOUTH EVERY MORNING PLUS ADDITIONAL ONETABLET TWO DAYS PER WEEK 110 Tablet 3 Pantoprazole Sodium 40 MG Oral Tablet Delayed Release (Protonix) TAKE ONE TABLET BY MOUTH EVERYDAY 90 Tablet 2 Atorvastatin Calcium 80 MG Oral Tablet (Lipitor) TAKE ONE TABLET BY MOUTH EVERY DAY 90 Tablet 0 Ranolazine ER 500 MG Oral Tablet Extended Release 12 Hour (Ranexa) TAKE ONE TABLET BY MOUTH TWICE A DAY -- IN THE MORNING AND BEFORE BEDTIME 180 Tablet 3 Famotidine 20 MG Oral Tablet (Pepcid) TAKE ONE TABLET BY MOUTH TWO TIMES A DAILY AY NEEDED FOR HEARTBURN 30 Tablet 1 Nortriptyline HCl 75 MG Oral Capsule (Pamelor) TAKE ONE CAPSULE BY MOUTH AT BEDTIME 90 Capsule 3 Isosorbide Mononitrate ER 60 MG Oral Tablet Extended Release 24 Hour (Imdur) TAKE ONE TABLET BYMOUTH TWICE A DAY 200 Tablet 3 Vitamin D 25 MCG (1000 UT) Oral Tablet Take by mouth. Vitamin E 1000 UNIT Oral Capsule Take 1 Capsule by mouth in the morning. Spironolactone 25 MG Oral Tablet (Aldactone) Take 1 Tablet by mouth in the morning. 100 Tablet 3 No current facility-administered medications for this visit. Review of patient's allergies indicates: Allergen Reactions Oxycodone Other reaction(s): vomiting Percocet [Oxycodone-Acetaminophen] Nausea/vomiting Darvocet [Propoxyphene N-Acetaminophen] N/V Fentanyl Nausea/vomiting Family Status Relation Status Mo Fa Sis Sis Sis Bro Bro Sis Sis Son (Not Specified) Social History Tobacco Use Smoking status: Some Days Years: 64.00 Types: Cigarettes Last attempt to quit: 04/23/2022 Years since quittin.9 Smokeless tobacco: Never Tobacco comments: 2 - 3 cigarettes per month Substance Use Topics Alcohol use: Yes Comment: 6 drink/yr if that Vaping/E-Cigarette Use Vaping/E-Cigarette Use Never User Vaping/E-Cigarette Substances Vaping/E-Cigarette Devices PHYSICAL EXAM: BP 130/60 | Temp 36 C (96.8 F) (Infrared ) | Wt 91.2 kg (201 lb) | BMI 34.50 kg/m | BSA 2.03 m EXAMINATION: Well developed, well nourished and in no acute distress. Skin: No significant lesions. Specifically, no sclerodactyly, telangiectasias, subcutaneous nodulesor periungual abnormalities. HEENT: KERR[place]. No ocular erythema. No lesions in oral mucosa. Normal oral mucosa moisture. Lymphatics: No palpable nodes. Neck: Supple with no palpable masses. Thyroid was normal. Chest: Clear to A&P. Heart: Rate regular. No murmurs, rubs or gallops. Abdomen: Soft, nontender. No hepatosplenomegaly. Extremities: No edema. Normal pulses. Neurological: Alert and oriented. No focal findings. Strength, reflexes and sensation were intact. No pathological reflexes. Musculoskeletal: Good muscle strength, has balance issues IMPRESSION: 1. Osteoporosis: Given her present T-score and risk factors, treatment with a pharmacological agentshould be considered in order to reduce her fracture risk. Previous treatment failed: none Previous treatment intolerant: none Renal disease contraindicating bisphosphonates: none GI Disease contraindicating oral bisphosphonates: GERD Bariatric Surgery contraindicating oral bisphosphonates: none ASSESSMENT: (M85.852) Osteopenia of left hip (primary encounter diagnosis) (M80.08XD) 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 77 year old male with hx of vertebral fractures in December 2022 after falling in the bathtub. Pt was hospitalized 01/21/23- 01/27/23 then went to [facility] for rehab. It was noted his Vit D level was low and he was started on a Vit D supplement. Uses a walker to ambulate due to balance issues. Has good muscle strength, but reports some weakness at times and legs can just give out. Labs ordered to evaluate a secondary cause for osteopenia and monitor before starting reclast. Education provided on reclast along with side effects. Patient is agreeable to the plan. Encouraged to contact office with anyquestions or concerns. PLANS: 1. We discussed this condition in detail. Issues regarding the nature of the condition, clinical manifestations, evaluation, and treatment were discussed. Questions were answered. 2. An adequate amount of calcium and vitamin D intake was emphasized via dietary or supplemental sources. 3. The benefits of exercise and muscle strengthening were reviewed. 4. Issues regarding safety and fall prevention were addressed. 5. Labs will be checked to evaluate for secondary causes of osteoporosis. 25-OH Vitamin D calcium creatinine TSH PTH(intact) CBC CMP 6. Authorization for Reclast with appropriate instructions and precautions. 7. Followup: Return to [facility] clinic in 1 year DXA due 2 years from previous,Return to [facility] clinic in 1 year 8. Encouraged to contact office with any questions or concerns. ZEYAD Gilmore I saw the patient. I agree with the findings and plan as documented by Yudi JEFFERS in this note. Will look into coverage for Reclast. El Paz MD Rheumatology Department documented in this encounter Nursing Notes * Zohaib Cantu LPN - 03/29/2023 9:55 AM EDT Chief Complaint Patient presents with NEW PATIENT Referred by Dr Duarte for [facility] documented in this encounter Miscellaneous Notes * Pt Handout (on AVS) - ZEYAD Adams - 03/29/2023 10:36 AM EDT Images from the original note were not included. [id number] Zoledronic Acid Injection 5 mg/100 mL Brands: Reclast Uses This medicine is used for the following purposes: bone disease bone strength Instructions This medicine is given as an IV injection into a vein. Please ask your doctor, nurse, or pharmacist how to discard unused medicines safely. This medicine should be given by a trained health care provider. Drink plenty of water while on this medicine. Drink at least 2 glasses of water before treatment, unless instructed otherwise. It may take several weeks for this medicine to fully work. It is important that you keep taking each dose of this medicine on time even if you are feeling well. If you miss a dose, contact your doctor for instructions. Drug interactions can change how medicines work or increase risk for side effects. Tell your healthcare providers about all medicines taken. Include prescription and [id number] medicines, vitamins, and herbal medicines. Speak with your doctor or pharmacist before starting or stopping any medicine. This medicine may affect the strength of your bones. If you have or are at increased risk for osteoporosis (weakening of the bones), your doctor may recommend foods with calcium and vitamin D. Visit your dentist regularly. Proper care of your teeth is very important while taking this medicine. [place] your teeth and floss regularly. Keep all appointments for medical exams and tests while on this medicine. Cautions This medicine can cause defects. Speak with your doctor about control methods that should be used while on this medicine and for some time after stopping it. Tell your doctor and pharmacist if you ever had an allergic reaction to a medicine. Do not use the medication any more than instructed. This medicine may cause dizziness or fainting, especially after exercising or in hot weather. Be very careful when standing or sitting up quickly. Your ability to stay alert or to react quickly may be impaired by this medicine. Do not drive or operate machinery until you know how this medicine will affect you. Please check with your doctor before drinking alcohol while on this medicine. Avoid smoking while on this medicine. Smoking may increase your risk for bone fractures. If possible, avoid using with marijuana or other medicines that can cause dizziness or drowsiness. These include allergy/cold products, muscle relaxers, sleep aids, and pain relievers. Do not breastfeed while on this medicine. This medicine can hurt a new baby in the womb. If you become while on this medicine, tell your doctor immediately. Your doctor may switch you to a different medicine. Some patients have serious side effects from this medicine. Ask your pharmacist to show you the information from the Food and Drug Administration (FDA) and discuss it with you. Side Effects The following is a list of some common side effects from this medicine. Please speak with your doctor about what you should do if you experience these or other side effects. dizziness lack of energy and tiredness flu-like symptoms headaches pain, redness, swelling near injection nausea Call your doctor or get medical help right away if you notice any of these more serious side effects: bone pain fever or chills numbness or tingling in hands and feet fast or irregular heart beats jaw pain kidney problems mouth sores or irritation muscle cramps or weakness tight or rigid muscles joint or muscle pain eye pain or swelling red, burning, or itchy skin redness of eyes seizures sensitivity to light shortness of breath skin tingling, burning or prickly feeling unusual or unexplained tiredness or weakness urinating less often dark urine blurring or changes of vision weakness A few people may have an allergic reaction to this medicine. Symptoms can include difficulty breathing, skin rash, itching, swelling, or severe dizziness. If you notice any of these symptoms, seek medical help quickly. Extra Please speak with your doctor, nurse, or pharmacist if you have any questions about this medicine. [email or web address] IMPORTANT NOTE: This document tells you briefly how to take your medicine, but it does not tell youall there is to know about it. Your doctor or pharmacist may give you other documents about your medicine. Please talk to them if you have any questions. Always follow their advice. There is a more complete description of this medicine available in Portuguese. Scan this code on your smartphone or tablet or use the web address below. You can also ask your pharmacist for a printout. If you have any questions, please ask your pharmacist. The display and use of this drug information is subject to Terms of Use. Copyright(c) 2022 [employer] 7459-7070 [employer]. All rights reserved. This information is not intended as a substitute for professional medical care. Always follow your healthcare professional's instructions. documented in this encounter Plan of Treatment Upcoming Encounters Date Type Specialty Care Team Description 04/08/2023 Laboratory Laboratory Processing [facility] [place] Home Draw [address] [place] [address] 04/09[facility]20[facility] [address] [facility] [place] [address] 05/18/2023 Office Visit Family Medicine Zachariah Duarte, [address] [place] [address] 07/22/2023 Office Visit Sleep Disorders Marnie Hartman, [address] [place] [address] 03/28/2024 Office Visit Rheumatology [facility] Horowitz [facility] [address] [facility] [address] Pending Results Name Type Priority Associated Diagnoses Date /Time TSH WITH FREE T4 IF INDICATED Lab Routine Osteopenia of left hip 03/29/2023 11:11 AM EDT 25-HYDROXY VITAMIN D Lab Routine Osteopenia of left hip 03/29/2023 11:11 AM EDT PTH Lab Routine Osteopenia of left hip 03/29/2023 11:11 AM EDT Scheduled Procedures Name Priority Associated [...] Additional history exists CKD PHOS USE SMARTSET 98387 07/02/202306/23, 07/01/2021, 03/22/2020 DIABETES-EYE EXAM 07/20/2023 07/20/2022, , 08/26/2020, Additional history exists O2 ASSESSMENT COMPLETED IN PAST YEAR FOR COPD 08/10/2023 08/10/2022 DISCUSS TOBACCO CESSATION (REFER TO SMARTSET #3291) 08/26/2023 08/26/2022, 05/27/2022, 02/11/2022, Additional history exists GFR 09/29/2023 03/29/2023, 11/21, 07/02/2022, Additional history exists Depression Screening, Annual for Pts 12 and Over 11/21/2023 11/20/2022 DXA Scan 03/11/2024 03/11/2023 CKD HGB USE SMARTSET 55634 03/29/202403/29, 03/29/2023, 12/01/2022, Additional history exists DTaP,Tdap,and Td Vaccines (3 - Td or Tdap) 01/11/2028 01/10/2018, 10/03/2012 VITAMIN D LEVEL ONCE IN A LIFETIME-USE SMARTSET# [id number] Completed 05/12/2014 Pneumococcal Vaccine: 65+ Years Completed 05/14/2015, 09/11/2009, 07/12/2003 Zoster Vaccines Completed 03/22/2020, 08/30/2019 COLONOSCOPY-EVERY 5 YRS AGES 18-100 Discontinued 11/19/2020, 11/19/2020, 05/16/2015, Additional history exists Alpha-1 Antitrypsin Completed 03/11/2022 GARDASIL-HPV IMMUNIZATION SERIES Aged Out No longer [...] Procedure Name Priority Date/Time Associated Diagnosis Comments DIFFERENTIAL, AUTOMATED Routine 03/29/2023 11:11 AM EDT Osteopenia of left hip COMPREHENSIVE METABOLIC PANEL Routine 03/29/2023 11:11 AM EDT Osteopenia of left hip CBC WITH WBC DIFFERENTIAL Routine 03/29/2023 11:11 AM EDT Osteopenia of left hip CBC Routine 03/29/2023 11:11 AM EDT Osteopenia of left hip documented in this encounter Results * (ABNORMAL) DIFFERENTIAL, AUTOMATED (03/29/2023 11:11 AM EDT) WBC 7.85 4.00 - 10.80 K/uL 03/29/2023 11:35 AM EDT [facility] Neutrophils % 64.2 40.0 - 75.0 % 03/29/2023 11:35 AM EDT [facility] Lymphocytes % 16.3(L) 18.0 - 42.0 % 03/29/2023 11:35 AM EDT [facility] [place] [facility] Monocytes % 13.0(H) 1.0 - 11.0 % 03/29/2023 11:35 AM EDT [facility] [place] [facility] Eosinophils % 6.0 0.0 - 6.0 % 03/29/2023 11:35 AM EDT [facility] Basophils % 0.5 0.0 - 2.0 % 03/29/2023 11:35 AM EDT [facility] [place] [facility] Absolute Neutrophils 5.04 1.80 - 7.70 K/uL 03/29/2023 11:35 AM EDT [facility] [place] [facility] Absolute Lymphocytes 1.28 1.00 - 4.80 K/ul 03/29/2023 11:35 AM EDT [facility] [place] [facility] Absolute Monocytes 1.02 0.00 - 1.10 K/uL 03/29/2023 11:35 AM EDT [facility] [place] [facility] Absolute Eosinophils 0.47 0.00 - 0.70 K/uL 03/29/2023 11:35 AM EDT [facility]10 Absolute Basophils 0.04 0.00 - 0.20 K/uL 03/29/2023 11:35 AM EDT [facility] Blood Venous blood specimen / Unknown Venipuncture / Unknown 03/29/2023 11:11 AM EDT 03/29/2023 11:11 AM EDT Yudi JEFFERS LAB BLOOD ORDERAB LES [facility] [place] [facility] [place] [address] * (ABNORMAL) CBC (03/29/2023 11:11 AM EDT) WBC 7.85 4.00 - 10.80 K/uL 03/29/2023 11:35 AM EDT [facility] RBC 4.46 4.50 - 5.25 M/uL 03/29/2023 11:35 AM EDT [facility]10 HGB 12.3(L) 14.0 - 16.8 g/dL 03/29/2023 11:35 AM EDT [facility]10 HCT 39.5(L) 40.0 - 48.4 % 03/29/2023 11:35 AM EDT [facility]10 MCV 88.6 82.0 - 99.5 fL 03/29/2023 11:35 AM EDT [facility]10 MCH 27.6 27.0 - 34.0 pg 03/29/2023 11:35 AM EDT [facility]10 MCHC 31.1 32.0 - 36.0 g/dL 03/29/2023 11:35 AM EDT [facility]10 RDW 15.7 11.5 - 15.5 % 03/29/2023 11:35 AM EDT [facility]10 PLT 167 140 - 400 K/uL 03/29/2023 11:35 AM EDT [facility]10 MPV 10.5 6.6 - 11.1 fL 03/29/2023 11:35 AM EDT [facility] [place] [facility] Blood Venous blood specimen / Unknown Venipuncture / Unknown 03/29/2023 11:11 AM EDT 03/29/2023 11:11 AM EDT Yudi JEFFERS LAB BLOOD ORDERAB LES [facility] [facility] [address] * (ABNORMAL) COMPREHENSIVE METABOLIC PANEL (03/29/2023 11:11 AM EDT) BUN 18 6 - 20 mg/dL 03/29/2023 12:35 PM EDT [facility]10 Creatinine 1.3(H) 0.6 - 1.2 mg/dL 03/29/2023 12:35 PM EDT [facility] [place] [facility]10 Estimated Glomerular Filtration Rate 57(L) >=60 mL/min 03/29/2023 12:35 PM EDT [facility] [place] [facility]10 Comment:eGFR is calculated b ased on the CKD-EPI 2020 equation Sodium 136 135 - 146 mmol/L 03/29/2023 12:35 PM EDT [facility] [place] [facility]10 Potassium 4.8 3.5 - 5.1 mmol/L 03/29/2023 12:35 PM EDT [facility] [place] [facility]10 Chloride 99 98 - 107 mmol/L 03/29/2023 12:35 PM EDT [facility] [place] [facility]10 CO2 25 22 - 32 mmol/L 03/29/2023 12:35 PM EDT [facility] [place] [facility]10 Anion Gap 12 7 - 15 mmol/L 03/29/2023 12:35 PM EDT [facility] [place] [facility]10 Glucose 97 70 - 120 mg/dL 03/29/2023 12:35 PM EDT [facility] [place] [facility]10 Albumin 4.2 3.8 - 5.0 g/dL 03/29/2023 12:35 PM EDT [facility] [place] [facility]10 AST 18 10 - 50 U/L 03/29/2023 12:35 PM EDT [facility] [place] [facility] [facility]10 Alkaline Phosphatase 90 35 - 130 U/L 03/29/2023 12:35 PM EDT [facility] [place] [facility]10 Bilirubin, Total 0.4 <=1.2 mg/dL 03/29/2023 12:35 PM EDT [facility] [place] [facility]10 Calcium 8.8 8.4 - 10.2 mg/dL 03/29/2023 12:35 PM EDT [facility] [place] [facility]10 Protein 6.6 6.0 - 8.3 g/dL 03/29/2023 12:35 PM EDT [facility] [place] [facility]10 ALT 13 10 - 50 U/L 03/29/2023 12:35 PM EDT [facility] [place] [facility]10 Blood Venous blood specimen / Unknown Venipuncture / Unknown 03/29/2023 11:11 AM EDT 03/29/2023 11:11 AM EDT Yudi JEFFERS LAB BLOOD ORDERAB LES [facility] [place] [address] documented in this encounter Visit Diagnoses Diagnosis 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 No Full Code 08/14/2010 2:57 PM 08/15/2010 2:24 PM Thi s order reflects the patients wishes and were consensually agreed upon. Care Teams Tying Machine Operator Relationship Specialty Start Date End Date Zachariah Duarte DO [address] [place] [address] PCP - General Family Medicine 12/20/20 documented as of this encounter
--- OUTSIDE RECORDS SUMMARY | 2023-08-28 08:40 | External Medical Summary | Summary of Care ---
Author Name Unknown Organization [facility] Address [address] [facility] [place] [address] Phone [phone] Care Team Providers Care Film Casting Operator Name Role Phone Kj Duarteinic Primary Care Provider [phone] Reason for Visit * Reason Onset Date Comments Medication Pre-auth 03/29/2023 Reclast Encounter Details Date Type Department Care Team Description 03/29/2023 Telephone Rheumatology [facility] [address] [place] [address] Yudi Horowitz CRNP [address] [facility] [place] [id number] Medication Pre-auth (Reclast ) Allergies Active Allergy [...] for lantus 1 box 11 09/11/2009 Active Ink361TOUCH ULTRA 2 W/DEVICE KITIndications:DM type 2, goal [...] 1 Each 0 04/09/2022 Active oxygen IN GASIndications:Geometrician bobbi respiratory failure with hypoxia (HCC),Centrilobular emphysema [...] 90 Tablet 2 11/13/2022 4 Active Umeclidinium [place] 62.5 MCG/ACT Inhalation Aerosol Powder Breath Activated (INCRUSE ellipta)Indications :COPD, group B, by GOLD 2017 classification ([facility]) INHALE ONE PUFF BY MOUTH [...] of [place]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 Thanks! * Telephone Encounter - Sonal Justin RN - 03/30/2023 9:39 AM EDT Referral entered, labs 03/29/23. Yudi: are labs ok to proceed with scheduling reclast? Thanks! * Telephone Encounter - Mari Cook LPN - 03/29/2023 1:46 PM EDT Order received for Reclast 5mg IV once yearly [place] created and routed to provider for signature Rheum: When the labs and auth are back and patient is ready to be scheduled, please forward back top [phone] for scheduling. Thank you! * Telephone Encounter - Елена Up LPN - 03/29/2023 11:33 AM EDT Please auth * Telephone Encounter - ZEYAD Adams - 03/29/2023 11:13 AM EDT Can we please look into coverage for Reclast, GI contraindication to Fosamax. Labs due. documented in this encounter Plan of Treatment Upcoming Encounters Date Type Specialty Care Team Description 04/08/2023 Laboratory Laboratory Processing [facility], [facility] [address] [facility] [address] 04/09/2023 [facility] [address] [facility] [place] [address] 05/18/2023 Office Visit Family Medicine Zachariah Duarte DO [address] [place] [address] 07/22/2023 Office Visit Sleep Disorders Marnie Hartman, DO [address] [place] [address] 03/28/2024 Office Visit Rheumatology Yudi Horowitz CRNP [address] [facility] [place] [address] Scheduled Procedures Name Priority Associated Diagnoses Date/Ti [...] Additional history exists CKD PHOS USE SMARTSET 24758 07/02/202306/23, 07/01/2021, 03/22/2020 DIABETES-EYE EXAM 07/20/2023 07/20/2022, , 08/26/2020, Additional history exists O2 ASSESSMENT COMPLETED IN PAST YEAR FOR COPD 08/10/2023 08/10/2022 DISCUSS TOBACCO CESSATION (REFER TO SMARTSET #3291) 08/26/2023 08/26/2022, 05/27/2022, 02/11/2022, Additional history exists GFR 09/29/2023 03/29/2023, 11/21, 07/02/2022, Additional history exists Depression Screening, Annual for Pts 12 and Over 11/21/2023 11/20/2022 DXA Scan 03/11/2024 03/11/2023 CKD HGB USE SMARTSET 23256 03/29/202403/29, 03/29/2023, 12/01/2022, Additional history exists DTaP,Tdap,and Td Vaccines (3 - Td or Tdap) 01/11/2028 01/10/2018, 10/03/2012 Pneumococcal Vaccine: 65+ Years Completed 05/14/2015, 09/11/2009, 07/12/2003 Zoster Vaccines Completed 03/22/2020, 08/30/2019 COLONOSCOPY-EVERY 5 YRS AGES 18-100 Discontinued 11/19/2020, 11/19/2020, 05/16/2015, Additional history exists Alpha-1 Antitrypsin Completed 03/11/2022 VITAMIN D LEVEL ONCE IN A LIFETIME-USE SMARTSET# [id number] Completed 03/29/2023, 05/12/2014 GARDASIL-HPV IMMUNIZATION SERIES Aged [...] the patient have Health Care Power of Gold Stamper? No Full Code 08/14/2010 2:57 PM 08/15/2010 2:24 PM Thi s order reflects the patients wishes and were consensually agreed upon. Care Teams Film Casting Operator Relationship Specialty Start Date End Date Zachariah Duarte DO [address] [place] [address] PCP - General Family Medicine 12/20/20 documented as of this encounter
--- OUTSIDE RECORDS SUMMARY | 2023-08-28 08:40 | External Medical Summary | Summary of Care ---
Author Name Unknown Organization [facility] Address [address] [facility] [place] [address] Phone [phone] Care Team Providers Care Samples And Repairs Preparer Name Role Phone Kj Duarteinic Primary Care Provider [phone] Reason for Visit * Reason Onset Date Comments Medication Pre-auth 03/29/2023 Reclast Encounter Details Date Type Department Care Team Description 03/29/2023 Telephone Rheumatology [facility] [address] [place] [address] Yudi Horowitz CRNP [address] [place] [id number] Medication Pre-auth (Reclast ) Allergies Active Allergy [...] for lantus 1 box 11 09/11/2009 Active Risk Management SolutionTOUCH ULTRA 2 W/DEVICE KITIndications:DM type 2, goal [...] 1 Each 0 04/09/2022 Active oxygen IN GASIndications: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 Thank you! * Telephone Encounter - Елена Up LPN - 03/29/2023 11:33 AM EDT Please auth * Telephone Encounter - ZEYAD Adams - 03/29/2023 11:13 AM EDT Can we please look into coverage for Reclast, GI contraindication to Fosamax. Labs due. documented in this encounter Plan of Treatment Upcoming Encounters Date Type Specialty Care Team Description 04/08/2023 Laboratory Laboratory Processing [facility], [facility] Mobile Home Draw [address] [place] [address] 04/09/2023 Anticoagulation Pharmacy Tele[facility], [facility] [address] [facility] [place] [address] 05/18/2023 Office Visit Family Medicine Zachariah Duarte, DO [address] [place] [address] 07/22/2023 Office Visit Sleep Disorders Marnie Hartman, DO [address] [place] [address] 03/28/2024 Office Visit Rheumatology Yudi Horowitz CRNP [address] [place] [address] Scheduled Procedures Name Priority Associated Diagnoses Date/Ti [...] Additional history exists CKD PHOS USE SMARTSET 25916 07/02/202306/23, 07/01/2021, 03/22/2020 DIABETES-EYE EXAM 07/20/2023 07/20/2022, , 08/26/2020, Additional history exists O2 ASSESSMENT COMPLETED IN PAST YEAR FOR COPD 08/10/2023 08/10/2022 DISCUSS TOBACCO CESSATION (REFER TO SMARTSET #3291) 08/26/2023 08/26/2022, 05/27/2022, 02/11/2022, Additional history exists GFR 09/29/2023 03/29/2023, 11/21, 07/02/2022, Additional history exists Depression Screening, Annual for Pts 12 and Over 11/21/2023 11/20/2022 DXA Scan 03/11/2024 03/11/2023 CKD HGB USE SMARTSET 55036 03/29/202403/29, 03/29/2023, 12/01/2022, Additional history exists DTaP,Tdap,and Td Vaccines (3 - Td or Tdap) 01/11/2028 01/10/2018, 10/03/2012 VITAMIN D LEVEL ONCE IN A LIFETIME-USE SMARTSET# [id number] Completed 05/12/2014 Pneumococcal Vaccine: 65+ Years Completed [...] the patient have Health Care Power of Noc Technician? No Full Code 08/14/2010 2:57 PM 08/15/2010 2:24 PM Thi s order reflects the patients wishes and were consensually agreed upon. Care Teams Samples And Repairs Preparer Relationship Specialty Start Date End Date Zachariah Duarte DO [address] [place] [address] PCP - General Family Medicine 12/20/20 documented as of this encounter
--- OUTSIDE RECORDS SUMMARY | 2023-08-28 08:40 | External Medical Summary | Summary of Care ---
Author Name Unknown Organization [facility] Address [address] [facility] [place] [address] Phone [phone] Care Team Providers Care Cnc Milling Machine Operator Name Role Phone Kj Duarteinic Primary Care Provider Reason for Visit * Reason Onset Date Comments Medication Pre-auth 03/29/2023 Reclast Encounter Details Date Type Department Care Team Description 03/29/2023 Telephone Rheumatology [facility] [address] [place] [address] Yudi Horowitz CRNP [address] [place] [id number] Medication Pre-auth (Reclast ) Allergies Active Allergy Reactions Severity Noted Date Comments Propoxyphene N-Acetaminophen 06/22/2012 N/V Fentanyl Nausea/vomiting 10/15/2009 Oxycodone High 01/21/2023 Other reaction(s): vomiting Oxycodone-Acetaminophen Nausea/vomiting High 010 documented as of this encounter (statuses as of 04/01/2023) Medications Medication Sig Dispensed Refills Start Date End Date Status SYRINGE (DISPOSABLE) 5 ML MISCIndications:DM type 2 causing neurological disease (HCC) use as directed for lantus 1 box 11 09/11/2009 Active MicroQuantTOUCH ULTRA 2 W/DEVICE KITIndications:DM type 2, goal [...] 1 Each 0 04/09/2022 Active oxygen IN GASIndications:Patent Lawyer bobbi respiratory failure with hypoxia (HCC),Centrilobular emphysema [...] 90 Tablet 2 11/13/2022 4 Active Umeclidinium [place] 62.5 MCG/ACT Inhalation Aerosol Powder Breath Activated [...] 12 Hour (Ranexa)Indications :Coronary artery disease of [place] artery of [place] heart with stable angina pectoris (HCC) TAKE [...] as of this encounter (statuses as of 04/01/2023) Active Problems Problem Noted Date Age-related osteopor [...] artery disease of n ative artery of [place] heart with stable angina pectoris 01/30/2017 Overview: More specific. 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 17 Last Assessment & Plan: Cognition at baseline -not tolerating Aricept HTN (hypertension) 09/28/2012 Atherosclerosis of [place] artery of extr emity 06/22/2012 Obstructive sleep apnea 01/13/2010 Overview: ICD-10 update of inactive term Last Assessment & Plan: Compliant with CPAP Old myocardial infarction 10/25/2009 Lumbar disc disorder with myelopathy Overview: Fentanyl patch caused severe nausea and vomiting Failed ultram Oxycodone caused nausea Preglaucoma 08/29/1998 History of TIA (transient ischemic attac k) documented as of this encounter (statuses as of 04/01/2023) Resolved Problems Problem Noted Date Resolved Date [...] as of this encounter (statuses as of 04/01/2023) Immunizations Name Administration Dates Next Due COVID-19 [...] Miscellaneous Notes * Telephone Encounter - VENICE Ward - [...] received for Reclast 5mg IV once yearly [place] created and routed to provider for signature Rheum: When the labs and auth are back and patient is ready to be scheduled, please forward back top [phone] for scheduling. Thank you! * Telephone Encounter - Елена Up LPN - 03/29/2023 11:33 AM EDT Please auth * Telephone Encounter - ZEYAD Adams - 03/29/2023 11:13 AM EDT Can we please look into coverage for Reclast, GI contraindication to Fosamax. Labs due. documented in this encounter Plan of Treatment Upcoming Encounters Date Type Specialty Care Team Description 04/08/2023 Laboratory Laboratory Processing [facility], [facility] Mobile Home Draw [address] [facility] [place] [address] 04/09/2023 [facility] [address] [facility] [place] [address] 05/18/2023 Office Visit Family Medicine Zachariah Duarte, DO [address] [place] [address] 07/22/2023 Office Visit Sleep Disorders Marnie Hartman, DO [address] [place] [address] 03/28/2024 Office Visit Rheumatology Yudi Horowitz CRNP [address] [place] [address] Scheduled Procedures Name Priority Associated Diagnoses Date/Ti [...] Additional history exists CKD PHOS USE SMARTSET 90643 07/02/202306/23, 07/01/2021, 03/22/2020 DIABETES-EYE EXAM 07/20/2023 07/20/2022, , 08/26/2020, Additional history exists O2 ASSESSMENT COMPLETED IN PAST YEAR FOR COPD 08/10/2023 08/10/2022 DISCUSS TOBACCO CESSATION (REFER TO SMARTSET #3291) 08/26/2023 08/26/2022, 05/27/2022, 02/11/2022, Additional history exists GFR 09/29/2023 03/29/2023, 11/21, 07/02/2022, Additional history exists Depression Screening, Annual for Pts 12 and Over 11/21/2023 11/20/2022 DXA Scan 03/11/2024 03/11/2023 CKD HGB USE SMARTSET 12525 03/29/202403/29, 03/29/2023, 12/01/2022, Additional history exists DTaP,Tdap,and Td Vaccines (3 - Td or Tdap) 01/11/2028 01/10/2018, 10/03/2012 Pneumococcal Vaccine: 65+ Years Completed 05/14/2015, 09/11/2009, 07/12/2003 Zoster Vaccines Completed 03/22/2020, 08/30/2019 COLONOSCOPY-EVERY 5 YRS AGES 18-100 Discontinued 11/19/2020, 11/19/2020, 05/16/2015, Additional history exists Alpha-1 Antitrypsin Completed 03/11/2022 VITAMIN D LEVEL ONCE IN A LIFETIME-USE SMARTSET# 19796 Completed 03/29/2023, 05/12/2014 GARDASIL-HPV IMMUNIZATION SERIES Aged [...] the patient have Health Care Power of Renovation Plant Supervisor? No Full Code 08/14/2010 2:57 PM 08/15/2010 2:24 PM Thi s order reflects the patients wishes and were consensually agreed upon. Care Teams Cnc Milling Machine Operator Relationship Specialty Start Date End Date Zachariah Duarte DO [address] [place] [address] PCP - General Family Medicine 12/20/20 documented as of this encounter
--- OUTSIDE RECORDS SUMMARY | 2023-08-28 08:40 | External Medical Summary | Summary of Care ---
Author Name Unknown Organization [facility] Address [address] [facility] [place] [address] Phone [phone] Care Team Providers Care Surgery Aid Name Role Phone Kj Duarteinic Primary Care Provider [phone] Reason for Visit * Reason Onset Date Comments Medication Pre-auth 03/29/2023 Reclast Encounter Details Date Type Department Care Team Description 03/29/2023 Telephone Rheumatology [facility] [address] [place] [address] Yudi Horowitz CRNP [address] [place] [id number] Medication Pre-auth (Reclast ) Allergies Active Allergy [...] for lantus 1 box 11 09/11/2009 Active ScanaduTOUCH ULTRA 2 W/DEVICE KITIndications:DM type 2, goal [...] 1 Each 0 04/09/2022 Active oxygen IN GASIndications: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 Thank you! * Telephone Encounter - Елена Up LPN - 03/29/2023 11:33 AM EDT Please auth * Telephone Encounter - ZEYDA Adams - 03/29/2023 11:13 AM EDT Can we please look into coverage for Reclast, GI contraindication to Fosamax. Labs due. documented in this encounter Plan of Treatment Upcoming Encounters Date Type Specialty Care Team Description 04/08/2023 Laboratory [place] [facility] [place] [facility] Mobile Home Draw [address] [place] [address] 04/09/2023 [facility] [address] [facility] [address] 05/18/2023 Office Visit Family Medicine Zachariah Duarte, DO [address] [place] [address] 07/22/2023 Office Visit Sleep Disorders Marnie Hartman, [address] [place] [address] 03/28/2024 Office Visit Rheumatology Yudi Horowitz CRNP [address] [place] [address] Scheduled Procedures Name Priority Associated Diagnoses Date/Ti [...] Additional history exists CKD PHOS USE SMARTSET 65972 07/02/202306/23, 07/01/2021, 03/22/2020 DIABETES-EYE EXAM 07/20/2023 07/20/2022, , 08/26/2020, Additional history exists O2 ASSESSMENT COMPLETED IN PAST YEAR FOR COPD 08/10/2023 08/10/2022 DISCUSS TOBACCO CESSATION (REFER TO SMARTSET #9191) 08/26/2023 08/26/2022, 05/27/2022, 02/11/2022, Additional history exists GFR 09/29/2023 03/29/2023, 11/21, 07/02/2022, Additional history exists Depression Screening, Annual for Pts 12 and Over 11/21/2023 11/20/2022 DXA Scan 03/11/2024 03/11/2023 CKD HGB USE SMARTSET 92316 03/29/202403/29, 03/29/2023, 12/01/2022, Additional history exists DTaP,Tdap,and Td Vaccines (3 - Td or Tdap) 01/11/2028 01/10/2018, 10/03/2012 Pneumococcal Vaccine: 65+ Years Completed 05/14/2015, 09/11/2009, 07/12/2003 Zoster Vaccines Completed 03/22/2020, 08/30/2019 COLONOSCOPY-EVERY 5 YRS AGES 18-100 Discontinued 11/19/2020, 11/19/2020, 05/16/2015, Additional history exists Alpha-1 Antitrypsin Completed 03/11/2022 VITAMIN D LEVEL ONCE IN A LIFETIME-USE SMARTSET# 24664 Completed 03/29/2023, 05/12/2014 GARDASIL-HPV IMMUNIZATION SERIES Aged [...] the patient have Health Care Power of Physician/Internist? No Full Code 08/14/2010 2:57 PM 08/15/2010 2:24 PM Thi s order reflects the patients wishes and were consensually agreed upon. Care Teams Surgery Aid Relationship Specialty Start Date End Date Zachariah Duarte DO [address] [place] [address] PCP - General Family Medicine 12/20/20 documented as of this encounter
--- OUTSIDE RECORDS SUMMARY | 2023-08-28 08:40 | External Medical Summary | Summary of Care ---
Author Name Unknown Organization [facility] Address [address] [facility] [place] [address] Phone [phone] Care Team Providers Care Breaker Machine Operator Name Role Phone Zachariah Duarte DO Primary Care Provider Reason for Visit * Reason Onset Date Comments Appointment 04/01/2023 Treatment Encounter Details Date Type Department Care Team Description 04/01/2023 Telephone Hematology/Oncology [facility] [place] [address] [facility] [address] [facility], Scheduling [address] [place] [address] Appointment (Treatment) Allergies Active Allergy Reactions Severity [...] 1 Each 0 04/09/2022 Active oxygen IN GASIndications: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 * Telephone Encounter - VENICE Leal - 04/01/2023 3:53 PM EDT We received a call from Kaleb wanting to schedule his Reclast treatment. Please give him a call atyour earliest convenience to schedule his treatment. Kaleb can be reached at [phone]. Thank you! documented in this encounter Plan of Treatment Upcoming Encounters Date Type Specialty Care Team Description 04/08/2023 Laboratory [place] [facility] [place] [facility] Mobile Home Draw [address] [place] [address] 04/09/2023 [facility] [address] [facility] [place] [address] 05/18/2023 Office Visit Family Medicine Zachariah Duarte, DO [address] [place] [address] 07/22/2023 Office Visit Sleep Disorders Marnie Hartman, DO [address] [place] [address] 03/28/2024 Office Visit Rheumatology Yudi Horowitz, ZEYAD [address] [employer] [facility], [place] [address] Scheduled Procedures Name Priority Associated Diagnoses Date/Ti [...] Additional history exists CKD PHOS USE SMARTSET 48214 07/02/202306/23, 07/01/2021, 03/22/2020 DIABETES-EYE EXAM 07/20/2023 07/20/2022, , 08/26/2020, Additional history exists O2 ASSESSMENT COMPLETED IN PAST YEAR FOR COPD 08/10/2023 08/10/2022 DISCUSS TOBACCO CESSATION (REFER TO SMARTSET #3291) 08/26/2023 08/26/2022, 05/27/2022, 02/11/2022, Additional history exists GFR 09/29/2023 03/29/2023, 11/21, 07/02/2022, Additional history exists Depression Screening, Annual for Pts 12 and Over 11/21/2023 11/20/2022 DXA Scan 03/11/2024 03/11/2023 CKD HGB USE SMARTSET 53389 03/29/202403/29, 03/29/2023, 12/01/2022, Additional history exists DTaP,Tdap,and Td Vaccines (3 - Td or Tdap) 01/11/2028 01/10/2018, 10/03/2012 Pneumococcal Vaccine: 65+ Years Completed 05/14/2015, 09/11/2009, 07/12/2003 Zoster Vaccines Completed 03/22/2020, 08/30/2019 COLONOSCOPY-EVERY 5 YRS AGES 18-100 Discontinued 11/19/2020, 11/19/2020, 05/16/2015, Additional history exists Alpha-1 Antitrypsin Completed 03/11/2022 VITAMIN D LEVEL ONCE IN A LIFETIME-USE SMARTSET# 82408 Completed 03/29/2023, 05/12/2014 GARDASIL-HPV IMMUNIZATION SERIES Aged [...] the patient have Health Care Power of Dry Cleaning Checker? No Full Code 08/14/2010 2:57 PM 08/15/2010 2:24 PM Thi s order reflects the patients wishes and were consensually agreed upon. Care Teams Breaker Machine Operator Relationship Specialty Start Date End Date Zachariah Duarte DO [address] [place] [address] PCP - General Family Medicine 12/20/20 documented as of this encounter
--- OUTSIDE RECORDS SUMMARY | 2023-08-28 08:40 | External Medical Summary | Summary of Care ---
Author Name Unknown Organization [facility] Address [address] [facility] [place] [address] Phone [phone] Care Team Providers Care Wood Piler Name Role Phone Kj Duarteinic Primary Care Provider [phone] Reason for Visit * Reason Onset Date Comments Medication Pre-auth 03/29/2023 Reclast Encounter Details Date Type Department Care Team Description 03/29/2023 Telephone Rheumatology [facility] [address] [place] [address] Yudi Horowitz CRNP [address] [place] [id number] Medication Pre-auth (Reclast ) Allergies Active Allergy Reactions Severity Noted Date Comments Propoxyphene N-Acetaminophen 06/22/2012 N/V Fentanyl Nausea/vomiting 10/15/2009 Oxycodone High 01/21/2023 Other reaction(s): vomiting Oxycodone-Acetaminophen Nausea/vomiting High 010 documented as of this encounter (statuses as of 03/31/2023) Medications Medication Sig Dispensed Refills Start Date End Date Status SYRINGE (DISPOSABLE) 5 ML MISCIndications:DM type 2 causing neurological disease (HCC) use as directed for lantus 1 box 11 09/11/2009 Active BookLending.comTOUCH ULTRA 2 W/DEVICE KITIndications:DM type 2, goal [...] 1 Each 0 04/09/2022 Active oxygen IN GASIndications:Intellectual Property Lawyer bobbi respiratory failure with hypoxia (HCC),Centrilobular [...] 90 Tablet 2 11/13/2022 4 Active Umeclidinium [place] 62.5 MCG/ACT Inhalation Aerosol Powder Breath Activated [...] 12 Hour (Ranexa)Indications :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 17 Last Assessment & Plan: Cognition at baseline -not tolerating Aricept HTN (hypertension) 09/28/2012 Atherosclerosis of syc[place] artery of extr emity 06/22/2012 Obstructive sleep apnea 01/13/2010 Overview: ICD-10 update of inactive term Last Assessment & Plan: Compliant with CPAP Old myocardial infarction 10/25/2009 Lumbar disc disorder with myelopathy Overview: Fentanyl patch caused severe nausea and vomiting Failed ultram Oxycodone caused nausea Preglaucoma 08/29/1998 History of TIA (transient ischemic attac k) documented as of this encounter (statuses as of 03/31/2023) Resolved Problems Problem Noted Date Resolved Date [...] as of this encounter (statuses as of 03/31/2023) Immunizations Name Administration Dates Next Due COVID-19 [...] received for Reclast 5mg IV once yearly [place] created and routed to provider for signature Rheum: When the labs and auth are back and patient is ready to be scheduled, please forward back top [phone] for scheduling. Thank you! * Telephone Encounter - Елена Up LPN - 03/29/2023 11:33 AM EDT Please auth * Telephone Encounter - ZEYAD Adams - 03/29/2023 11:13 AM EDT Can we please look into coverage for Reclast, GI contraindication to Fosamax. Labs due. documented in this encounter Plan of Treatment Upcoming Encounters Date Type Specialty Care Team Description 04/08/2023 Laboratory Laboratory Processing [facility], [facility] Mobile Home Draw [address] [facility] [place] [address] 04/09/2023 [facility] [address] [facility] [place] [address] 05/18/2023 Office Visit Family Medicine Zachariah Duarte, DO [address] [place] [address] 07/22/2023 Office Visit Sleep Disorders Marnie Hartman, DO [address] [place] [address] 03/28/2024 Office Visit Rheumatology uYdi Horowitz CRNP [address] [place] [address] Scheduled Procedures Name Priority Associated Diagnoses Date/Ti [...] Additional history exists CKD PHOS USE SMARTSET 84050 07/02/202306/23, 07/01/2021, 03/22/2020 DIABETES-EYE EXAM 07/20/2023 07/20/2022, , 08/26/2020, Additional history exists O2 ASSESSMENT COMPLETED IN PAST YEAR FOR COPD 08/10/2023 08/10/2022 DISCUSS TOBACCO CESSATION (REFER TO SMARTSET #3291) 08/26/2023 08/26/2022, 05/27/2022, 02/11/2022, Additional history exists GFR 09/29/2023 03/29/2023, 11/21, 07/02/2022, Additional history exists Depression Screening, Annual for Pts 12 and Over 11/21/2023 11/20/2022 DXA Scan 03/11/2024 03/11/2023 CKD HGB USE SMARTSET 17378 03/29/202403/29, 03/29/2023, 12/01/2022, Additional history exists DTaP,Tdap,and Td Vaccines (3 - Td or Tdap) 01/11/2028 01/10/2018, 10/03/2012 Pneumococcal Vaccine: 65+ Years Completed 05/14/2015, 09/11/2009, 07/12/2003 Zoster Vaccines Completed 03/22/2020, 08/30/2019 COLONOSCOPY-EVERY 5 YRS AGES 18-100 Discontinued 11/19/2020, 11/19/2020, 05/16/2015, Additional history exists Alpha-1 Antitrypsin Completed 03/11/2022 VITAMIN D LEVEL ONCE IN A LIFETIME-USE SMARTSET# 41428 Completed 03/29/2023, 05/12/2014 GARDASIL-HPV IMMUNIZATION SERIES Aged [...] the patient have Health Care Power of Tow Motor Mechanic? No Full Code 08/14/2010 2:57 PM 08/15/2010 2:24 PM Thi s order reflects the patients wishes and were consensually agreed upon. Care Teams Wood Piler Relationship Specialty Start Date End Date Zachariah Duarte DO [address] [place] [address] PCP - General Family Medicine 12/20/20 documented as of this encounter
--- OUTSIDE RECORDS SUMMARY | 2023-08-28 08:40 | External Medical Summary | Summary of Care ---
Author Name Unknown Organization [facility] Address [address] [facility] [place] [address] Phone [phone] Care Team Providers Care Production Line Solderer Name Role Phone Kj Duarteinic Primary Care Provider Reason for Visit * Reason Onset Date Comments Medication Pre-auth 03/29/2023 Reclast Encounter Details Date Type Department Care Team Description 03/29/2023 Telephone Rheumatology [facility] [address] [employer] [place] [address] Yudi Horowitz CRNP [address] [place] [id number] Medication Pre-auth (Reclast ) Allergies Active Allergy [...] for lantus 1 box 11 09/11/2009 Active PreztoTOUCH ULTRA 2 W/DEVICE KITIndications:DM type 2, goal [...] 1 Each 0 04/09/2022 Active oxygen IN GASIndications:Zinc Plating Machine Operator bobbi respiratory failure with hypoxia [...] 90 Tablet 2 11/13/2022 4 Active Umeclidinium [place] 62.5 MCG/ACT Inhalation Aerosol Powder Breath Activated (INCRUSE ellipta)Indications :COPD, group B, by GOLD 2017 classification ([facility]) INHALE ONE PUFF BY MOUTH [...] 12 Hour (Ranexa)Indications :Coronary artery disease of [place] artery of [place] heart with stable angina pectoris (HCC) TAKE [...] artery disease of n ative artery of [place] heart with stable angina pectoris 01/30/2017 Overview: More specific. 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 17 Last Assessment & Plan: Cognition at baseline -not tolerating Aricept HTN (hypertension) 09/28/2012 Atherosclerosis of [place] artery of extr emity 06/22/2012 Obstructive sleep [...] received for Reclast 5mg IV once yearly [place] created and routed to provider for signature Rheum: When the labs and auth are back and patient is ready to be scheduled, please forward back top [phone] for scheduling. Thank you! * Telephone Encounter [...] Laboratory Processing [facility] Mobile Home Draw [address] [place] [address] 04/09/2023 [facility] [address] [place] [address] 05/18/2023 Office Visit Family Medicine Zachariah Duarte, DO [address] [place] [address] 07/22/2023 Office Visit Sleep Disorders Marnie Hartman, [address] [place] [address] 03/28/2024 Office Visit Rheumatology Yudi Horowitz CRNP [address] [place] [address] Scheduled Procedures Name Priority Associated Diagnoses Date/Ti [...] Additional history exists CKD PHOS USE SMARTSET 18979 07/02/202306/23, 07/01/2021, 03/22/2020 DIABETES-EYE EXAM 07/20/2023 07/20/2022, , 08/26/2020, Additional history exists O2 ASSESSMENT COMPLETED IN PAST YEAR FOR COPD 08/10/2023 08/10/2022 DISCUSS TOBACCO CESSATION (REFER TO SMARTSET #0221) 08/26/2023 08/26/2022, 05/27/2022, 02/11/2022, Additional history exists GFR 09/29/2023 03/29/2023, 11/21, 07/02/2022, Additional history exists Depression Screening, Annual for Pts 12 and Over 11/21/2023 11/20/2022 DXA Scan 03/11/2024 03/11/2023 CKD HGB USE SMARTSET 42943 03/29/202403/29, 03/29/2023, 12/01/2022, Additional history exists DTaP,Tdap,and Td Vaccines (3 - Td or Tdap) 01/11/2028 01/10/2018, 10/03/2012 Pneumococcal Vaccine: 65+ Years Completed 05/14/2015, 09/11/2009, 07/12/2003 Zoster Vaccines Completed 03/22/2020, 08/30/2019 COLONOSCOPY-EVERY 5 YRS AGES 18-100 Discontinued 11/19/2020, 11/19/2020, 05/16/2015, Additional history exists Alpha-1 Antitrypsin Completed 03/11/2022 VITAMIN D LEVEL ONCE IN A LIFETIME-USE SMARTSET# 29508 Completed 03/29/2023, 05/12/2014 GARDASIL-HPV IMMUNIZATION SERIES Aged [...] the patient have Health Care Power of Poising Inspector? No Full Code 08/14/2010 2:57 PM 08/15/2010 2:24 PM Thi s order reflects the patients wishes and were consensually agreed upon. Care Teams Production Line Solderer Relationship Specialty Start Date End Date Zachariah Duarte DO [address] [place] [address] PCP - General Family Medicine 12/20/20 documented as of this encounter
--- OUTSIDE RECORDS SUMMARY | 2023-08-28 08:41 | External Medical Summary ---
Author Name Unknown Address Unknown Organization [id number]:[facility] [address] [place] [id number] Laboratory Report Ordering Provider Test Date Status LUIS ALBERTO CASH 03/18/2023 09:11:00 Final Warfarin Therapy
INR: 2 .0-3.0 conventional anticoagulation
INR: 2.5- 3.5 high intensity anticoagulation Observation Date Value Abnormality Reference (Units ) Status PT 03/18/2023 09:11:00 23.4 Above high normal 11 .6-15.2 (seconds) Final INR 03/18/2023 09:11:00 2.1 Above high normal 0. 8-1.2 Final Performing Location [facility] [address] [place] [id number]
--- OUTSIDE RECORDS SUMMARY | 2023-08-28 08:41 | External Medical Summary ---
Author Name Unknown Address Unknown Organization K01:[facility] [place] [address] [place] [id number] Laboratory Report Ordering Provider Test Date Status ROBBY OLIVERA 03/29/2023 11:11:09 Final Observation Date Value Abnormality Reference (Units ) Status Parathyrin.intact [Mass/volume] in Serum or Plasma 03/29/2023 11:11:09 89 Above high normal 15-65 (pg/mL) Final Performing Location [facility] [place] [address] [place] [id number]
--- OUTSIDE RECORDS SUMMARY | 2023-08-28 08:41 | External Medical Summary | Summary of Care ---
Author Name Unknown Organization [facility] Address [address] [facility] [place] [address] Phone [phone] Care Team Providers Care Mechanical Shop Laborer Name Role Phone Kj Duarteinic Primary Care Provider [phone] Encounter Details Date Type Department Care Team Description 03/25/2023 Orders Only Pulmonary Medicine Ezekiel Rodríguez [address] [place] [phone] Grey Green MD [address] [place] [id number] Chronic respiratory failure with hypoxia (HCC)* Allergies Active Allergy Reactions Severity Noted Date Comments Propoxyphene N-Acetaminophen 06/22/2012 N/V Fentanyl Nausea/vomiting 10/15/2009 Oxycodone High 01/21/2023 Other reaction(s): vomiting Oxycodone-Acetaminophen Nausea/vomiting High 010 documented as of this encounter (statuses as of 03/25/2023) Medications Medication Sig Dispensed Refills Start Date [...] 1 Each 0 04/09/2022 Active oxygen IN GASIndications:Soil Specialist bobbi respiratory failure with hypoxia (HCC),Centrilobular [...] 90 Tablet 2 11/13/2022 4 Active Umeclidinium [place] 62.5 MCG/ACT Inhalation Aerosol Powder Breath Activated (INCRUSE ellipta)Indications :COPD, group B, by GOLD 2017 classification ([facility]) INHALE ONE PUFF BY MOUTH EVERY [...] 12 Hour (Ranexa)Indications :Coronary artery disease of [place] artery of [place] heart with stable angina pectoris (HCC) TAKE [...] as of this encounter (statuses as of 03/25/2023) Active Problems Problem Noted Date Age-related osteopor [...] artery disease of n ative artery of [place] heart with stable angina pectoris 01/30/2017 Overview: More specific. 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 17 Last Assessment & Plan: Cognition at baseline -not tolerating Aricept HTN (hypertension) 09/28/2012 Atherosclerosis of [place] artery of extr emity 06/22/2012 Obstructive sleep apnea 01/13/2010 Overview: ICD-10 update of inactive term Last Assessment & Plan: Compliant with CPAP Old myocardial infarction 10/25/2009 Lumbar disc disorder with myelopathy Overview: Fentanyl patch caused severe nausea and vomiting Failed ultram Oxycodone caused nausea Preglaucoma 08/29/1998 History of TIA (transient ischemic attac k) documented as of this encounter (statuses as of 03/25/2023) Resolved Problems Problem Noted Date Resolved Date [...] as of this encounter (statuses as of 03/25/2023) Immunizations Name Administration Dates Next Due COVID-19 [...] Encounters Date Type Specialty Care Team Description 03/29/2023 Office Visit Rheumatology Yudi Horowitz CRNP [address] [place] [address] 04/08/2023 Laboratory Laboratory Processing [facility] Mobile Home Draw [address] [place] [address] 04/09/2023 [facility] [address] [facility] [place] [address] 05/18/2023 Office Visit Family Medicine Zachariah Duarte DO [address] [place] [address] 07/22/2023 Office Visit Sleep Disorders MinnieBethnicole Fermin, DO [address] [place] [address] Scheduled Procedures Name Priority Associated Diagnoses Date/Ti [...] 2023 05/27/2022, 06/23/2021, 05/04/2020, Additional history exists GFR 06/02/2023 12/01/2022, 06/23, 03/25/2022, Additional history exists CKD PHOS USE SMARTSET 48185 07/02/202306/23, 07/01/2021, 03/22/2020 DIABETES-EYE EXAM 07/20/2023 07/20/2022, , 08/26/2020, Additional history exists O2 ASSESSMENT COMPLETED IN PAST YEAR FOR COPD 08/10/2023 08/10/2022 DISCUSS TOBACCO CESSATION (REFER TO SMARTSET #9476) 08/26/2023 08/26/2022, 05/27/2022, 02/11/2022, Additional history exists Depression Screening, Annual for Pts 12 and Over 11/21/2023 11/20/2022 CKD HGB USE SMARTSET 78790 12/02/202312/01, 12/01/2022, 02/06/2022, Additional history exists DXA Scan 03/11/2024 03/11/2023 DTaP,Tdap,and Td Vaccines (3 - Td or Tdap) 01/11/2028 01/10/2018, 10/03/2012 VITAMIN D LEVEL ONCE IN A LIFETIME-USE SMARTSET# 22431 Completed 05/12/2014 Pneumococcal Vaccine: 65+ Years Completed [...] of this encounter Visit Diagnoses Diagnosis Chronic respiratory failure with hypoxia (HCC)- Primary Chronic respiratory failure documented in this encounter Advance Directives Latest [...] the patient have Health Care Power of Seismic Interpreter? No Full Code 08/14/2010 2:57 PM 08/15/2010 2:24 PM Thi s order reflects the patients wishes and were consensually agreed upon. Care Teams Mechanical Shop Laborer Relationship Specialty Start Date End Date Zachariah Duarte DO [address] [place] [address] PCP - General Family Medicine 12/20/20 documented as of this encounter
--- OUTSIDE RECORDS SUMMARY | 2023-08-28 08:41 | External Medical Summary ---
Author Name Unknown Address Unknown Organization [id number]:LABORATORY [facility] [place] - [address] [place] [id number] Laboratory Report Ordering Provider Test Date Status ROBBY OLIVERA 03/29/2023 11:11:09 Final Deficient: <20 ng/mL
Ins ufficient: 20-29 ng/mL
Recommended/Optimum:30-50 ng/mL

Vitamin D intoxication is rare. If suspicious of Vitamin D toxicity, evaluation of serum Calcium and PTH is recommended. Observation Date Value Abnormality Reference (Units ) Status 25-OH Vitamin D total 03/29/2023 11:11:09 26 >19 (ng/mL) Final Performing Location LABORATORY [facility] - [address] [place] [address]
--- OUTSIDE RECORDS SUMMARY | 2023-08-28 08:41 | External Medical Summary | Summary of Care ---
Author Name Unknown Organization [facility] Address [address] [facility] [place] [place] [address] Phone [phone] Care Team Providers Care Strategic Planning Specialist Name Role Phone Zachariah Duarte DO Primary Care Provider [phone] Reason for Visit * Reason Comments Outpatient Testing Encounter Details Date Type Department Care Team Description 03/29/2023 Laboratory Laboratory, [facility] [address] [facility] [place] [id number] [facility] [address] [facility] [address] Arrived Allergies Active Allergy Reactions Severity Noted [...] 1 Each 0 04/09/2022 Active oxygen IN GASIndications:Forepart Rasper bobbi respiratory failure with hypoxia (HCC),Centrilobular emphysema [...] (3) MG/3ML Inhalation Solution (Duoneb)Indications :Centrilobular emphysema ([facility]) INHALE 3 ML (1 VIAL) BY MOUTH [...] Oral Tablet (Namenda)Indication s:Dementia in Alzheimer's disease ([facility]) TAKE ONE TABLET BY MOUTH IN [...] 90 Tablet 2 11/13/2022 4 Active Umeclidinium [place] 62.5 MCG/ACT Inhalation Aerosol Powder Breath Activated [...] 12 Hour (Ranexa)Indications :Coronary artery disease of [place] artery of [place] heart with stable angina pectoris (HCC) TAKE [...] artery disease of n ative artery of [place] heart with stable angina pectoris 01/30/2017 Overview: More specific. 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 17 Last Assessment & Plan: Cognition at baseline -not tolerating Aricept HTN (hypertension) 09/28/2012 Atherosclerosis of [place] artery of extr emity 06/22/2012 Obstructive sleep [...] Care Team Description 04/08/2023 Laboratory Laboratory Processing [facility], [facility] Home Draw [address] [place] [address] 04/09/2023 [facility] [address] [facility] [address] 05/18/2023 Office Visit Family Medicine Zachariah Duarte, DO [address] [place] [address] 07/22/2023 Office Visit Sleep Disorders Marnie Hartman, DO [address] [place] [address] 03/28/2024 Office Visit Rheumatology Yudi Horowitz, ZEYAD [address] [facility], [place] [id number] Scheduled Procedures Name Priority Associated Diagnoses Date/Ti [...] Additional history exists CKD PHOS USE SMARTSET 68586 07/02/202306/23, 07/01/2021, 03/22/2020 DIABETES-EYE EXAM 07/20/2023 07/20/2022, , 08/26/2020, Additional history exists O2 ASSESSMENT COMPLETED IN PAST YEAR FOR COPD 08/10/2023 08/10/2022 DISCUSS TOBACCO CESSATION (REFER TO SMARTSET #[id number]) 08/26/2023 08/26/2022, 05/27/2022, 02/11/2022, Additional history exists Depression Screening, Annual for Pts 12 and Over 11/21/2023 11/20/2022 CKD HGB USE SMARTSET 16435 12/02/202312/01, 12/01/2022, 02/06/2022, Additional history exists DXA Scan 03/11/2024 03/11/2023 DTaP,Tdap,and Td Vaccines (3 - Td or Tdap) 01/11/2028 01/10/2018, 10/03/2012 VITAMIN D LEVEL ONCE IN A LIFETIME-USE SMARTSET# [id number] Completed 05/12/2014 Pneumococcal Vaccine: 65+ Years Completed [...] the patient have Health Care Power of Metal Furniture Repairer? No Full Code 08/14/2010 2:57 PM 08/15/2010 2:24 PM Thi s order reflects the patients wishes and were consensually agreed upon. Care Teams Strategic Planning Specialist Relationship Specialty Start Date End Date Zachariah Duarte DO [address] [place] [address] PCP - General Family Medicine 12/20/20 documented as of this encounter
--- OUTSIDE RECORDS SUMMARY | 2023-08-28 08:41 | External Medical Summary | Summary of Care ---
Author Name Unknown Organization [facility] Address [address] [place] [address] Phone [phone] Care Team Providers Care Custom Stock Maker Name Role Phone Kj Duarteinic Primary Care Provider Reason for Visit * Reason Comments Follow Up Encounter Details Date Type Department Care Team Description 03/17/2023 Office Visit [facility] [address] [facility] [address] Marco Antonio Lara MD [address] [place] [address] PVD (peripheral vascular disease) (HCC)*; Asymptomatic stenosis of right carotid artery; Aortic ectasia (HCC) Allergies Active Allergy Reactions Severity Noted Date Comments Propoxyphene N-Acetaminophen 06/22/2012 N/V Fentanyl Nausea/vomiting 10/15/2009 Oxycodone High 01/21/2023 Other reaction(s): vomiting Oxycodone-Acetaminophen Nausea/vomiting High 010 documented as of this encounter (statuses as of 03/17/2023) Medications Medication Sig Dispensed Refills Start Date [...] 1 Each 0 04/09/2022 Active oxygen IN GASIndications: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 respiratory failure with hypoxia (HCC),Centrilobular [...] 90 Tablet 2 11/13/2022 4 Active Umeclidinium Marshall 62.5 MCG/ACT Inhalation Aerosol Powder Breath Activated (INCRUSE ellipta)Indications :COPD, group B, by GOLD 2017 classification ([facility]) INHALE ONE PUFF BY [...] 12 Hour (Ranexa)Indications :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 17 Last Assessment & Plan: Cognition at baseline -not tolerating Aricept HTN (hypertension) 09/28/2012 Atherosclerosis of napaimute artery of extr emity 06/22/2012 Obstructive sleep apnea 01/13/2010 Overview: ICD-10 update of inactive term Last Assessment & Plan: Compliant with CPAP Old myocardial infarction 10/25/2009 Lumbar disc disorder with myelopathy Overview: Fentanyl patch caused severe nausea and vomiting Failed ultram Oxycodone caused nausea Preglaucoma 08/29/1998 History of TIA (transient ischemic attac k) documented as of this encounter (statuses as of 03/17/2023) Resolved Problems Problem Noted Date Resolved Date [...] as of this encounter (statuses as of 03/17/2023) Immunizations Name Administration Dates Next Due COVID-19 [...] Used Date Smoking Tobacco: Some Days Cigarettes 1 64 Last attempted to quit: 04/23/2022 Smokeless Tobacco: Never Tobacco Cessation:Ready to Q uit: No; Counseling Given: No Comments:2 - 3 cigarettes per month Alcohol Use Standard Drinks/Week Comments Yes 0 (1 standard drink = 0.6 oz pur e alcohol) 6 drink/yr Food Insecurity Answer Date Recorded Within the [...] Sign Reading Time Taken Comments Blood Pressure 138/62 03/17/2023 10:56 AM EDT Pulse 60 03/17/2023 10:56 AM EDT Temperature - - Respiratory Rate - - Oxygen Saturation - - Inhaled Oxygen Concentration - - Weight 90.9 kg (200 lb 4.8 oz) 03/17/2023 10:56 AM EDT Height - - Body Mass Index 34.38 03/16/2023 1:47 PM EDT documented in this [...] as of this encounter Progress Notes * Kanu Barrett PA-C - 03/17/2023 11:10 AM EDT Kaleb Oakley is a 77 year old male. Referring Physician: Zachariah Duarte DO Chief Complaint: Mr. Oakley returns to clinic for routine follow up of carotid stenosis and PAD. Accompanied by his . Continues to smoke 2 cigarettes/week. He can barely walk from chair in office to exam table, trouble just standing up from chair. He tells us he fell 5 times in past few months when not using walker, his legs feel "rubbery" When walking 20 feet down the acosta gets severe ORONA and nearly collapses back into his Eusebia during February 2022 vascular office visit. HPI: Patient is a dedicated smoker with diffuse vascular disease. S/P percutaneous angioplasty of left external iliac and right common iliac stenoses on 08/14/[address] Royal for buttock claudication, with resolution. He continues with chronic back pain, leg paresthesias, and leg weakness. Had back surgery in 2012, with little some improvement in his prior "falls", but still feels like legs will give out on him. Has also undergone injection therapy and has seen seen by a Chiropractor. Spinal injections were not helpful. He reports ORONA since last visit and having work-up to see if O2 is indicated. He is now in a motorized scooter with minimal ambulation outside of the home. Previously was noted to have a 3.3 cm infrarenal aorta on 2014 duplex with subsequent imaging negative for AAA. CAROTID DISEASE: Remote h/o of TIA (slurred speech) with 2010 Brain MRI suggesting lacunar strokes of left basal ganglia and subcortical white matter. Patient denies recent TIA, recent stroke and recent amaurosis fugax. 02/2022 Carotid duplex exam at [facility] identified the right internal carotid with ~ 50% stenosis and the left internal carotid with less than 50% stenosis. Prior Neck CTA at [facility] identified the right internal carotid with 66% and the left internal carotid with 55% stenosis. PERIPHERAL VASCULAR DISEASE: Reports bilateral leg fatigue but no classic claudication. Maximum walking distance of < 20 feet (previously 50), but limited by ORONA as much as leg symptoms. Denies rest pain or ulcerations. Can't stand for any length of time - legs feel like they go to sleep and knees "go out on him". He is a diabetic with neuropathy/tingling. Current Outpatient Medications Medication Sig Dispense Refill SYRINGE (DISPOSABLE) 5 ML MISC use as directed for lantus 1 box 11 LifeCareSimTOUCH ULTRA 2 W/DEVICE KIT use as directed 1 Kit 0 LifeCareSimTOUCH DELICA LANCETS MISC use up to 4 [...] NEEDED FOR SLEEP 90 Tablet 2 Umeclidinium Marshall 62.5 MCG/ACT Inhalation Aerosol Powder Breath Activated [...] BYMOUTH TWICE A DAY 200 Tablet 3 No current facility-administered medications for this visit. Review of patient's allergies indicates: Allergen Reactions Oxycodone Other reaction(s): vomiting Percocet [Oxycodone-Acetaminophen] Nausea/vomiting Darvocet [Propoxyphene N-Acetaminophen] N/V Fentanyl Nausea/vomiting Patient Active Problem List Diagnosis Code History of TIA (transient ischemic attack) Z86.73 Preglaucoma H40.009 Lumbar disc disorder with myelopathy M51.06 Old myocardial infarction I25.2 Obstructive sleep apnea G47.33 Atherosclerosis of napaimute artery of extremity ([facility]) I70.209 HTN (hypertension) I10 Dementia in Alzheimer's disease ([facility]) G30.9, F02.80 S/P primary angioplasty with coronary stent Z95.5 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 ([facility]) I25.118 Ectatic abdominal aorta ([facility]) I77.811 PAD (peripheral artery disease) ([facility]) I73.9 Asymptomatic bilateral carotid artery stenosis I65.23 Gastro-esophageal reflux disease without esophagitis K21.9 Chronic kidney disease, stage 3a ([facility]) N18.31 Diastolic congestive heart failure (HCC) I50.30 Atrial flutter (HCC) I48.92 Centrilobular emphysema ([facility]) J43.2 Hypertensive heart and kidney disease with chronic diastolic congestive heart failure and [id number] chronic kidney disease ([facility]) I13.0, I50.32, N18.31 Chronic respiratory failure with hypoxia ([facility]) J96.11 Restrictive lung disease J98.4 Typical atrial flutter ([facility]) I48.3 COPD, group B, by GOLD 2017 classification ([facility]) J44.9 Severe obesity (BMI 35.0-39.9) with comorbidity ([facility]) E66.01 Type 2 diabetes mellitus without complication ([facility]) E11.9 Gait disturbance R26.9 Generalized weakness R53.1 Type 2 diabetes mellitus with peripheral artery disease ([facility]) E11.51 Type 2 diabetes mellitus with stage 3a chronic kidney disease, with long- term current use of insulin ([facility]) E11.22, N18.31, Z79.4 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 M80.08XD Type 2 diabetes mellitus with diabetic polyneuropathy, with long-term current use of insulin ([facility]) E11.42, Z79.4 Atherosclerosis of aorta ([facility]) I70.0 Past Medical History: Diagnosis Date AAA (abdominal aortic aneurysm) ([facility]) 04/04/2014 ASCVD (arteriosclerotic cardiovascular disease) Benign neoplasm of colon 03/17/2010 diverticulosis, polyps x2 path shows adenomatous repeat in 5 years Cardiac catheterization as the cause of abnormal reaction of patient, or of later complication,without mention of misadventure at time of procedure Cardiac Cath COPD (chronic obstructive pulmonary disease) ([facility]) GERD (gastroesophageal reflux disease) Lung nodule Mild nonproliferative diabetic retinopathy without macular edema associated with type 1 diabetes mellitus ([facility]) 07/01/[address] NSTEMI (non-ST elevated myocardial infarction) ([facility]) 03/02/2019 Sleep apnea, obstructive Venous thrombosis 09/26/2012 LE DVT - Aug 2012 Past Surgical History: Procedure Laterality Date ANGIOLPLASTY ILIAC,PERCUT 08/14/2010 percutaneous angioplasty of left external iliac and right common iliac stenoses, Dr. Royal AORTOGRAM ABDOMINAL-TECH ONLY 08/14/2010 IMAGING S&I ABDOMINAL AO performed by MICHAEL ROYAL at OR [facility] BYPASS GRAFT ANGIOGRAPHY W/LEFT HEART CATH Left 01/29/2017 BYPASS GRAFT ANGIOGRAPHY W/LEFT HEART CATH performed by Tiffanie Contreras MD at CARDIAC LABS [facility] BYPASS GRAFT ANGIOGRAPHY W/LEFT HEART CATH Left 03/02/2019 BYPASS GRAFT ANGIOGRAPHY W/LEFT HEART CATH performed by Marco Antonio Cerda MD at CARDIAC LABS [facility] COLONOSCOPY W/ BIOPSY (RECTUM) 03/07/2010 done diverticulosis, polyps x2 path shows adenomatous repeat in 5 years COLONOSCOPY, DIAGNOSTIC (RECTUM) 11/19/2020 tubular adenoma polyps, repeat 2 yrs health permiting/ COLONOSCOPY FLEXIBLE PROXIMAL DIAGNOSTIC performed by Silvia Howard MD at ENDOSCOPY [facility] COLONOSCOPY, GI REFERRAL OP 10/04/2003 normal CORONARY ARTERY BYPASS, SINGLE 11/21/1997 CABG(Peripheral Bypass) ?Triple CORONARY ARTERY DILATION, BALLOON 08/23/1988 Angioplasty (PALMAZ-LIDIA) EGD, FLEXIBLE, DIAGNOSTIC N/A 08/10/2022 gastritis/single bleeding angioectasia in stomach, treated with APC/biopsies normal/ESOPHAGOGASTRODUODENOSCOPY (EGD), FLEXIBLE, TRANSORAL, DIAGNOSTIC performed by Nelly Perez DO at OR [facility] INJECTION LUMBAR/SACRAL 08/23/2011 IR ARTERIOGRAM EXTREMITY BILATERAL 08/14/2010 ANGIOGRAPHY EXTREMITY BILATERAL performed by MICHAEL ROYAL at OR [facility] LAMINECTOMY/LAMINOTOMY, LUMBAR, GUIDE 09/08/2012 L4-5, L5-S1 laminectomy MISCELLANEOUS ORDER ([facility] ONLY) Angioplasty in leg, right REMOVE CATARACT, INSERT LENS PROSTH 10/22/2011 rt eye REMOVE CATARACT, INSERT LENS PROSTH 10/22/2011 left eye Family History Problem Relation Age of Onset [...] Other (no FH of kidney disease) Son Social History Socioeconomic History Marital status: Spouse name: Not on file Number of children: Not on file Years of education: Not on file Highest education level: Not on file Occupational History Occupation: retired Employer: [employer] 0645 Tobacco Use Smoking status: Some Days Packs/day: 1.00 Years: 64.00 Pack years: 64.00 Types: Cigarettes Last attempt to quit: 04/23/2022 Years since quittin.8 Smokeless tobacco: Never Tobacco comments: 2 - 3 cigarettes per month Vaping Use Vaping Use: Never used Substance and Sexual Activity Alcohol use: Yes Comment: 6 drink/yr Drug use: Yes Frequency: 7.0 times per week Types: Marijuana Comment: capsules. 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 Social Determinants of Health Financial Resource Strain: Not on file Food Insecurity: No Food Insecurity Worried About Running Out of Food in the Last Year: Never true Ran Out of Food in the Last Year: Never true Transportation Needs: Not on file Physical Activity: Not on file Stress: Not on file Social Connections: Not on file Intimate Partner Violence: Not on file Housing Stability: Not on file REVIEW OF SYSTEMS: Constitutional: Denies fever/chills. Eyes: Denies amaurosis fugax. Cardiovascular: Chronic angina - follows with cardiology, CABG 1997. Respiratory: Denies shortness of breath, reports stable ORONA, C-PAP/oxygen nocturnally. Gastrointestinal: Denies melena, denies bright red blood per rectum. Genitourinary: Denies hematuria. Musculoskeletal: Reports chronic low back pain, reports herniated lumbar disks. Follows with Chiropractor. Neurological: Reports CVA Aug 2009 manifested by slurred speech (carotid duplex negative). Denies recent CVA/TIA. Skin: Denies ulcers. GENERAL MULTI-SYSTEM PHYSICAL EXAM: VITAL SIGNS: BP 138/62 (BP Site: Left Arm, BP Position: Sitting, BP Cuff Size: Regular) | Pulse 60 | Wt 90.9 kg (200 lb 4.8 oz) | BMI 34.38 kg/m | BSA 2.03 m GENERAL MULTI-SYSTEM PHYSICAL EXAM: GENERAL: No acute distress and appears stated age. NECK: No masses. RESPIRATORY: Respiratory effort normal and breath sounds CTA. CARDIOVASCULAR: RRR, no heart murmur and no edema. GASTROINTESTINAL: No tenderness, obese and abdominal aorta not palpable. SKIN: No ulcers. Feet dry bilaterally. PSYCHIATRIC: Orientation to time, place and person normal. EYES: Conjunctivae normal and pupils normal. NEUROLOGIC: CN and motor function grossly intact. PULSE SCALE: Carotid Right:----Bruit: No Left:----Bruit: No Radial Right: 3 Left: 3 Femoral Right: 1 Left: 1 Popliteal Right: 0 Left: 0 Dorsalis Pedis Right: 2 Left: 0 Posterial Tibial Right: 0 Left: 0 PULSE SCALE: 4=Aneurysmal; 3=Normal; 2=Diminished; 1=Barely Palpable; 0=Absent DIAGNOSTIC STUDIES: 03/17/23 VERONIKA: 0.73/0.41 03/17/23 Carotid Duplex: MARIA ELENA 118/14, LICA 74/14, ante verts 03/17/23 Abd Aortic Duplex: 2.2 cm mid abd aorta, patent CIAs. Prox Ao UI The above diagnostic images were directly visualized and independently interpreted by me on 03/17/2023 with results as above 03/02/22: VERONIKA: 0.69/0.32 but triphasic PT and AT right and biphasic PT and AT left Carotid duplex: MARIA ELENA 146/21, LICA 93/11 03/05/2021 Carotid Duplex MARIA ELENA 94/11 and LICA 93/17. 03/05/2021 VERONIKA .92/.67. 01/08/2020 Carotid Duplex MARIA ELENA and LICA 82/18. 01/08/2020 Aortic Duplex Maximum infrarenal aorta of 1.9 cm. B/LCIA UI. 01/08/2020 exercise doppler right .96 at rest/.92 with exercise left .60 at rest/.56 with exercise 01/11/19: Carotid duplex: MARIA ELENA 127/17, LICA 59/14 01/11/19: VERONIKA: 1/.85 01/10/2018 Neck CTA: 1. Focal atherosclerotic stenosis at the origin of the right ICA measuring 66%. 2. Focal atherosclerotic stenosis at the origin of the left ICA measuring 55%. 12/17/17: VERONIKA: 0.90/0.90 12/17/17: carotid duplex: MARIA ELENA 131/21, LICA 76/18 12/17/17: CT abd/pelv: No evidence of AAA. Abdominal aorta measures 2.5 cm at celiac and about 2.1 cm infrarenal. Moderate atherosclerotic disease noted aortoiliac segments. 10/08/2016 Aortic Duplex Infrarenal aorta prox UI, mid UI, dista 2.4 cm. R GABRIELLA .8 cm and L GABRIELLA .7 cm. 10/08/2016 VERONIKA .84/.84. 05/11/2016 Carotid Duplex MARIA ELENA 127/22 and LICA 86/17. 09/10/15: VERONIKA: 1/0.93, Toe 126/92, TBI: 0.79/0.58 09/10/15: Aortic Duplex: 2.4 cm abdominal aorta. RCIA 0.8 cm. LCIA 0.9 cm. 08/27/14: VERONIKA: .98/.94 08/27/14: aortic duplex: 3.3 cm AAA. 06/21/13 VERONIKA 1.1/.93. 06/21/13 Aortic duplex 3.3 cm AAA, B/L GABRIELLA 1 cm. 06/22/12 VERONIKA: 11 06/22/12 aortic/iliac duplex: abdominal aorta 2.1 cm, common iliacs .83 cm, RCI 96, ANDREA 122, LCI 136, LEI 114 05/15/11 VERONIKA .98/1.01. Triphasic waveforms. 05/15/11 Aortic Duplex 3.2 cm AAA. B/L GABRIELLA 1 cm. R GABRIELLA 174 cm/sec, R EIa 131 cm/sec, L GABRIELLA 107 cm/sec, and L EIA 115 cm/sec. 09/19/10 VERONIKA: 1/.97 09/19/10 duplex: RCI 123, ANDREA 132, RCF 89, RDF 69, RSF 80, Rpop 36, LCI 130, LEI 102, LCF 84, LDF 93, LSF 92, Lpop 50 07/22/10 Royal's Zacarias exercise doppler right .80 at rest/.56 with exercise left .80 at rest/.54 with exercise 09/2009 carotid duplex: no significant stenosis LABS: Creatinine Results: Lab Results Component Value Date/Time CREATININE 0.8 10/09/1996 08:35 AM CREATININE 0.8 09/11/1996 11:00 AM CREATININE - [facility] 1.1 12/01/2022 08:53 AM CREATININE - [facility] 1.2 07/02/2022 04:17 PM CREATININE - [facility] 1.4 (H) 03/25/2022 04:01 PM CREATININE - [facility] 1.6 (H) 03/22/2020 03:38 PM CREATININE - [facility] 1.4 (H) 08/30/2019 09:21 AM CREATININE - [facility] 1.2 03/03/2019 05:39 AM CREATININE, RANDOM URINE - [facility] 35 10/20/2021 03:04 PM CREATININE, RANDOM URINE - [facility] 105 08/11/2017 05:00 PM CREATININE, RANDOM URINE - [facility] 83 10/31/2015 09:51 AM CREATININE, RANDOM URINE - [facility] 93 11/13/2014 03:35 PM CREATININE-OUTSIDE LAB 1.30 03/01/2019 12:00 AM CREATININE-OUTSIDE LAB 1.30 04/12/2015 12:00 AM Lab Results Component Value Date/Time LDL (CALCULATED) 119. 10/09/1996 08:35 AM LDL CHOLESTEROL (CALCULATED) - [facility] 58 12/20/2020 04:14 PM LDL CHOLESTEROL (CALCULATED) - [facility] 58 03/22/2020 03:38 PM LDL CHOLESTEROL (DIRECT MEASURE) - [facility] NOT APPLICABLE 03/22/2020 03:38 PM LDL CHOLESTEROL (DIRECT MEASURE) - [facility] 69 04/14/2015 11:10 AM Hemoglobin AIC Results: Lab Results Component Value [...] - [facility] 6.7 (H) 03/02/2019 06:46 AM The above clinical lab tests were reviewed by me on 03/17/23 IMPRESSIONS: "Rubbery" legs most likely due to lumbar disc disease NOT due to vascular disease Asymptomatic MARIA ELENA 66% and LICA 55% LICA stenosis per 2018 CTA. 03/02/22 duplex demonstrating stability with velocities suggesting < 50% stenosis. Remote h/o TIA with 2010 MRI noting: "Multiple remote lacunar infarctions within the left basal ganglia and subcortical white matter & mild generalized atrophy." PAD with no classic claudication, rest pain, or ulcerations. S/P percutaneous angioplasty of left external iliac and right common iliac stenoses on 08/14/[address] Royal with resolution of bilateral buttock claudication. Ectatic 2.2 cm infrarenal aorta 2022 Ao duplex CAD, h/o CABG in 1997. Chronic angina. HTN. Dyslipidemia. Tobacco dependency. Sleep apnea, on nocturnal oxygen and CPAP. IDDM. CKD III Chronic lower back issues, s/p lumbar spine surgery. Dementia on Aricept. PLAN: The patient was counseled regarding the pathophysiology and natural history of carotid disease, as well as the symptoms of CVA/TIA/amaurosis fugax. Asymptomatic below threshold for intervention. The patient was counseled regarding the pathophysiology and natural history of peripheral vascular disease, as well as the interventional and noninterventional therapeutic options. His Rubbery legs and frequent falls are NOT due to vascular disease. Will continue with medical management and routine surveillance as do not feel that a vascular surgery intervention would improve his symptoms. He is limited more by his breathing and lumbar disease disease than by any LLE PVD. Continue daily 75mg Plavix for platelet inhibition/graft patency On Eliquis 5mg BID, started 10/2021 at OSH. Continue Lipitor 80mg daily for dyslipidemia Reccomend good foot care and proper footwear. F/U 2 years with VERONIKA, carotid duplex The patient was seen and examined with Marco Antonio Lara MD. Kanu Barrett PA-C I have reviewed the advanced practitioner documentation and agree. I saw and evaluated the patient on date of service referenced in note and have performed the following medically appropriate historyand/or exam: . He is getting increasingly frail Frequent falls (4 of 5 times without a walker) Vascular lab tests stable Foot care reviewed 2 years with veronika and carotid Marco Antonio Lara MD Section of Vascular [place] [address] [phone] documented in this encounter Nursing Notes * RAMSEY Martinez - 03/17/2023 10:58 AM EDT Patient was instructed to not get up on the exam table/exam chair until directed and assisted by their provider; patient is to remain seated in the chair/ wheelchair/ exam table/ exam chair for fall prevention and safety reasons. Patient is aware to have assistance to step down off exam table/exam chair with personnel. Patient voiced full comprehension of instructions. Patient states no changes in meds. RAMSEY Martinez documented in this encounter Plan of Treatment Upcoming Encounters Date Type Specialty Care Team Description 03/18/2023 Laboratory Laboratory Processing [facility], [facility] Mobile Home Draw [address] [place] [address] 03/19/2023 [facility] [address] [facility] [place] [address] 03/22/2023 Office Visit Cardiology Faby Singleton, [place] [address] [place] [address] 03/25/2023 Home Visit [facility] Kassy Campos, RN [address] [facility] [address] 05/18/2023 Office Visit Family Medicine Zachariah Duarte, DO [address] [place] [address] 07/22/2023 Office Visit Sleep Disorders Marnie Hartman, DO [address] [place] [address] Scheduled Orders Name Type Priority Associated Diagnoses Orde r Schedule VASC ANKLE BRACHIAL INDICES WITHOUT PPG (PAD) Medical Imaging Routine PVD (peripheral vascular disease) (HCC) Ordered: 03/17/2023 VASC DUPLEX CAROTID BILAT Medical Imaging Routine Asymptomatic stenosis of right carotid artery Ordered: 03/17/2023 Scheduled Procedures Name Priority Associated Diagnoses Date/Ti [...] Additional history exists CKD PHOS USE SMARTSET 02353 07/02/202306/23, 07/01/2021, 03/22/2020 DIABETES-EYE EXAM 07/20/2023 07/20/2022, , 08/26/2020, Additional history exists O2 ASSESSMENT COMPLETED IN PAST YEAR FOR COPD 08/10/2023 08/10/2022 DISCUSS TOBACCO CESSATION (REFER TO SMARTSET #[id number]) 08/26/2023 08/26/2022, 05/27/2022, 02/11/2022, Additional history exists Depression Screening, Annual for Pts 12 and Over 11/21/2023 11/20/2022 CKD HGB USE SMARTSET 52549 12/02/202312/01, 12/01/2022, 02/06/2022, Additional history exists DXA Scan 03/11/2024 03/11/2023 DTaP,Tdap,and Td Vaccines (3 - Td or Tdap) 01/11/2028 01/10/2018, 10/03/2012 VITAMIN D LEVEL ONCE IN A LIFETIME-USE SMARTSET# [id number] Completed 05/12/2014 Pneumococcal Vaccine: 65+ Years Completed 05/14/2015, 09/11/2009, 07/12/2003 Zoster Vaccines Completed 03/22/2020, 08/30/2019 COLONOSCOPY-EVERY 5 YRS AGES 18-100 Discontinued 11/19/2020, 11/19/2020, 05/16/2015, Additional history exists Alpha-1 Antitrypsin Completed 03/11/2022 LUNG CANCER SCREENING - USE SMARTSET 71302 Completed 02/09/2023, 01/21/2022, 07/24/2021 GARDASIL-HPV IMMUNIZATION SERIES Aged Out No longer [...] as of this encounter Visit Diagnoses Diagnosis PVD (peripheral vascular disease) (HCC)- Primary Peripheral vascular disease, unspecified Asymptomatic stenosis of right carotid artery Aortic ectasia (HCC) Aortic ectasia, unspecified site documented in this encounter Advance Directives Latest [...] the patient have Health Care Power of Electrician Journeyman Wireman? No Full Code 08/14/2010 2:57 PM 08/15/2010 2:24 PM Thi s order reflects the patients wishes and were consensually agreed upon. Care Teams Custom Stock Maker Relationship Specialty Start Date End Date Zachariah Duarte DO [address] [place] [address] PCP - General Family Medicine 12/20/20 documented as of this encounter
--- OUTSIDE RECORDS SUMMARY | 2023-08-28 08:41 | External Medical Summary ---
Author Name UNSPECIFIED Address Unknown Organization [facility] History of Encounters Reason for Assessment[facility] Facility where the patient been admitted: No inpatient facility admission Discharge Disposition: Patient remained in the community (without formal assistive services) Functional Assessment When Dyspneic: With moderate exerti on (e.g., while dressing, using commode or bedpan, walking distances less than 20 feet) Bowel Incontinence Frequency: Very rarel y or never has bowel incontinence Cognitive Functioning: Requires promptin g (cueing, repetition, reminders) only under stressful or unfamiliar conditions. When Confused (Reported or Observed): Du ring the day and evening, but not constantly When Anxious (Reported or Observed): Selma ly, but not constantly Cognitive and Behavioral and Psychiatric Symptoms: Memory deficit: failure to recognize familiar persons/places, inability to recall events of past 24 hours, significant memory loss so that supervision is required Current Ability: Bathing: Able to bathe in shower or tub with the intermittent assistance of another person: (a) for intermittent supervision or encouragement or reminders, OR (b) to get in and out of the shower or tub, OR (c) for washing difficult to reach areas. Current Ability: Ambulation: Requires us e of a two-handed device (e.g., walker or crutches) to walk alone on a level surface and/or requires human supervision or assistance to negotiate stairs or steps or uneven surfaces. Current: Management Of Oral Medications: Able to take medication(s) at the correct times if given reminders by another person at the appropriate times
--- OUTSIDE RECORDS SUMMARY | 2023-08-28 08:41 | External Medical Summary | Summary of Care ---
Author Name Unknown Organization [facility] Address [address] [facility] [place] [address] Phone [phone] Care Team Providers Care Analytics Analyst Name Role Phone Zachariah Duarte DO Primary Care Provider Reason for Visit * Reason Comments Dosage Adjustment Via Phone (anticoag Cl inic) Encounter Details Date Type Department Care Team Description 03/19/2023 Anticoagulation Pharmacy Call Center [address] [place] [address] [facility] [address] [facility] [place] [address] Anticoagulation management encounter* Allergies Active Allergy Reactions Severity Noted Date Comments Propoxyphene N-Acetaminophen 06/22/2012 N/V Fentanyl Nausea/vomiting 10/15/2009 Oxycodone High 01/21/2023 Other reaction(s): vomiting Oxycodone-Acetaminophen Nausea/vomiting High 010 documented as of this encounter (statuses as of 03/19/2023) Medications Medication Sig Dispensed Refills Start Date [...] 1 Each 0 04/09/2022 Active oxygen IN GASIndications: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 17 Last Assessment & Plan: Cognition at baseline -not tolerating Aricept HTN (hypertension) 09/28/2012 Atherosclerosis of [place] artery of extr emity 06/22/2012 Obstructive sleep apnea 01/13/2010 Overview: ICD-10 update of inactive term Last Assessment & Plan: Compliant with CPAP Old myocardial infarction 10/25/2009 Lumbar disc disorder with myelopathy Overview: Fentanyl patch caused severe nausea and vomiting Failed ultram Oxycodone caused nausea Preglaucoma 08/29/1998 History of TIA (transient ischemic attac k) documented as of this encounter (statuses as of 03/19/2023) Resolved Problems Problem Noted Date Resolved Date [...] as of this encounter (statuses as of 03/19/2023) Immunizations Name Administration Dates Next Due COVID-19 [...] as of this encounter Progress Notes * Cynthia Alvarado RPh - 03/19/2023 2:47 PM EDT Noted. No changes to coumadin plan. Thank you, Cynthia Alvarado, ChaiD Clinical Pharmacist [facility] ([facility]) (formerly Telepharmacy) 03/19/2023 2:48 PM * Siobhan Godinez CPhT - 03/19/2023 1:50 PM EDT Contacts Type Contact Phone/Fax 03/19/2023 01:41 PM EDT Phone (Outgoing) Sammi Oakley (Emergency Contact) [phone] Patient Findings Positives: Change in medications (Started taking Vitamin E) Negatives: Signs/symptoms of thrombosis, Signs/symptoms of bleeding, Change in health, Change in alcohol use, Change in activity, Upcoming invasive procedure, Missed doses, Extra doses, Change in diet/appetite, Bruising Advised patient to contact Anticoagulation Clinic if any unusual bruising or bleeding, recent illness, changes in medication, or questions/concerns. PT/INR results, Coumadin dose instructions, and next PT/INR date communicated as noted by Pharmacist: Yes Siobhan Godinez CPhT 03/19/2023, 1:50 PM * Cynthia Alvarado [facility] - 03/19/2023 9:31 AM EDT Coumadin Clinic (region specific) Current Warfarin Dose As of 03/19/2023 Warfarin maintenance plan: 2.5 mg (5 mg x 0.5) every day INR Result As of 03/19/2023 INR goal: 2.0-3.0 INR used for dosin.1 (03/18/2023) Warfarin Plan As of 03/19/2023 Full warfarin instructions: 2.5 mg every day No change documented: Cynthia Alvarado RPh Next INR check: 04/08/2023 Repeat PT/INR in 3 week(s) Weekly dose: not changed Additional Dosing Information: Description [facility] Tech to contact patient with dose instructions as noted. Cynthia Alvarado [facility] 03/19/2023, 9:31 AM Electronically signed by Cynthia Alvarado [facility] at 03/19/2023 2:48 PM EDT documented in this encounter Plan of Treatment Upcoming Encounters Date Type Specialty Care Team Description 03/22/2023 Office Visit Cardiology Faby Singleton PA-C [address] [place] [address] 03/25/2023 Home Visit [facility] Kassy Campos RN [address] [place], [place] [id number] 04/08/2023 Laboratory Laboratory Processing [facility] Draw [address] [facility] [place] [address] 04/09/20[facility] [address] [place] [address] 05/18/2023 Office Visit Family Medicine Zachariah Duarte, DO [address] [place] [address] 07/22/2023 Office Visit Sleep Disorders Hart[place] Marnie Fermin, [address] [place] [address] Scheduled Procedures Name Priority Associated Diagnoses Date/Ti [...] Additional history exists CKD PHOS USE SMARTSET 69839 07/02/202306/23, 07/01/2021, 03/22/2020 DIABETES-EYE EXAM 07/20/2023 07/20/2022, , 08/26/2020, Additional history exists O2 ASSESSMENT COMPLETED IN PAST YEAR FOR COPD 08/10/2023 08/10/2022 DISCUSS TOBACCO CESSATION (REFER TO SMARTSET #3291) 08/26/2023 08/26/2022, 05/27/2022, 02/11/2022, Additional history exists Depression Screening, Annual for Pts 12 and Over 11/21/2023 11/20/2022 CKD HGB USE SMARTSET 10584 12/02/202312/01, 12/01/2022, 02/06/2022, Additional history exists DXA Scan 03/11/2024 03/11/2023 DTaP,Tdap,and Td Vaccines (3 - Td or Tdap) 01/11/2028 01/10/2018, 10/03/2012 VITAMIN D LEVEL ONCE IN A LIFETIME-USE SMARTSET# [id number] Completed 05/12/2014 Pneumococcal Vaccine: 65+ Years Completed 05/14/2015, 09/11/2009, 07/12/2003 Zoster Vaccines Completed 03/22/2020, 08/30/2019 COLONOSCOPY-EVERY 5 YRS AGES 18-100 Discontinued 11/19/2020, 11/19/2020, 05/16/2015, Additional history exists Alpha-1 Antitrypsin Completed 03/11/2022 LUNG CANCER SCREENING - USE SMARTSET 29642 Completed 02/09/2023, 01/21/2022, 07/24/2021 GARDASIL-HPV IMMUNIZATION SERIES [...] the patient have Health Care Power of Hydraulic Press Servicer? No Full Code 08/14/2010 2:57 PM 08/15/2010 2:24 PM Thi s order reflects the patients wishes and were consensually agreed upon. Care Teams Analytics Analyst Relationship Specialty Start Date End Date Zachariah Duarte DO [address] [place] [address] PCP - General Family Medicine 12/20/20 documented as of this encounter
--- OUTSIDE RECORDS SUMMARY | 2023-08-28 08:41 | External Medical Summary | Summary of Care ---
Author Name Unknown Organization [facility] Address [address] [facility] [place] [address] Phone [phone] Care Team Providers Care Ip Attorney Name Role Phone Kj Duarteinic Primary Care Provider Encounter Details Date Type Department Care Team Description 03/29/2023 Orders Only Hematology/Oncology [facility] [place] [address] [facility] [place] [address] Yudi Horowitz CRNP [address] [facility] [place] [address] Allergies Active Allergy Reactions Severity Noted Date [...] for lantus 1 box 11 09/11/2009 Active AgendiaTOUCH ULTRA 2 W/DEVICE KITIndications:DM type 2, goal A1C 7-8 use as directed 1 Kit 0 03/09/2012 Active AgendiaTOUCH DELICA LANCETS MISCIndications:DM type 2, goal A1C [...] 1 Each 0 04/09/2022 Active oxygen IN GASIndications: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 17 Last Assessment & Plan: Cognition at baseline -not tolerating Aricept HTN (hypertension) 09/28/2012 Atherosclerosis of [place] artery of extr emity 06/22/2012 Obstructive sleep [...] Care Team Description 04/08/2023 Laboratory Laboratory Processing [facility] Mobile Home Draw [address] [place] [address] 04/09/2023 [facility] [address] [facility] [address] 05/18/2023 Office Visit Family Medicine Zachariah Duarte, DO [address] [place] [address] 07/22/2023 Office Visit Sleep Disorders Marnie [place]man, [address] [place] [address] 03/28/2024 Office Visit Rheumatology Yudi Horowitz CRNP [address] [place] [address] Scheduled Procedures Name Priority Associated Diagnoses Date/Ti [...] Additional history exists CKD PHOS USE SMARTSET 12919 07/02/202306/23, 07/01/2021, 03/22/2020 DIABETES-EYE EXAM 07/20/2023 07/20/2022, , 08/26/2020, Additional history exists O2 ASSESSMENT COMPLETED IN PAST YEAR FOR COPD 08/10/2023 08/10/2022 DISCUSS TOBACCO CESSATION (REFER TO SMARTSET #0231) 08/26/2023 08/26/2022, 05/27/2022, 02/11/2022, Additional history exists GFR 09/29/2023 03/29/2023, 11/21, 07/02/2022, Additional history exists Depression Screening, Annual for Pts 12 and Over 11/21/2023 11/20/2022 DXA Scan 03/11/2024 03/11/2023 CKD HGB USE SMARTSET 98271 03/29/202403/29, 03/29/2023, 12/01/2022, Additional history exists DTaP,Tdap,and Td Vaccines (3 - Td or Tdap) 01/11/2028 01/10/2018, 10/03/2012 VITAMIN D LEVEL ONCE IN A LIFETIME-USE SMARTSET# [id number] Completed 05/12/2014 Pneumococcal Vaccine: 65+ Years Completed [...] the patient have Health Care Power of Trousseau Consultant? No Full Code 08/14/2010 2:57 PM 08/15/2010 2:24 PM Thi s order reflects the patients wishes and were consensually agreed upon. Care Teams Ip Attorney Relationship Specialty Start Date End Date Zachariah Duarte DO [address] [place] [address] PCP - General Family Medicine 12/20/20 documented as of this encounter
--- OUTSIDE RECORDS SUMMARY | 2023-08-28 08:41 | External Medical Summary | Summary of Care ---
Author Name Unknown Organization [facility] Address [address] [facility] [place] [address] Phone [phone] Care Team Providers Care Program Admin Name Role Phone Kj Duarteinic Primary Care Provider Reason for Visit * Reason Onset Date Comments Medication Pre-auth 03/29/2023 Reclast Encounter Details Date Type Department Care Team Description 03/29/2023 Telephone Rheumatology [facility] [address] [place] [address] Yudi Horowitz CRNP [address] [place] [id number] Medication Pre-auth (Reclast ) Allergies Active Allergy [...] for lantus 1 box 11 09/11/2009 Active NewTide CommerceTOUCH ULTRA 2 W/DEVICE KITIndications:DM type 2, goal [...] 1 Each 0 04/09/2022 Active oxygen IN GASIndications: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 17 Last Assessment & Plan: Cognition at baseline -not tolerating Aricept HTN (hypertension) 09/28/2012 Atherosclerosis of [place] artery of extr emity 06/22/2012 Obstructive sleep [...] received for Reclast 5mg IV once yearly Ross created and routed to provider for signature Rheum: When the labs and auth are back and patient is ready to be scheduled, please forward back top [phone] for scheduling. Thank you! * Telephone Encounter [...] Processing [facility] Mobile Home Draw [address] [place] [address] 04/09/2023 Anticoagulation Pharmacy Telepharmacy, [facility] [address] [facility] [place] [address] 05/18/2023 Office Visit Family Medicine Zachariah Duarte, DO [address] [place] [address] 07/22/2023 Office Visit Sleep Disorders Marnie [place]man, DO [address] [place] [address] 03/28/2024 Office Visit Rheumatology Yudi Horowitz CRNP [address] [place] [address] Scheduled Procedures Name Priority Associated Diagnoses Date/Ti [...] Additional history exists CKD PHOS USE SMARTSET 96937 07/02/202306/23, 07/01/2021, 03/22/2020 DIABETES-EYE EXAM 07/20/2023 07/20/2022, , 08/26/2020, Additional history exists O2 ASSESSMENT COMPLETED IN PAST YEAR FOR COPD 08/10/2023 08/10/2022 DISCUSS TOBACCO CESSATION (REFER TO SMARTSET #3291) 08/26/2023 08/26/2022, 05/27/2022, 02/11/2022, Additional history exists GFR 09/29/2023 03/29/2023, 11/21, 07/02/2022, Additional history exists Depression Screening, Annual for Pts 12 and Over 11/21/2023 11/20/2022 DXA Scan 03/11/2024 03/11/2023 CKD HGB USE SMARTSET 71151 03/29/202403/29, 03/29/2023, 12/01/2022, Additional history exists DTaP,Tdap,and Td Vaccines (3 - Td or Tdap) 01/11/2028 01/10/2018, 10/03/2012 VITAMIN D LEVEL ONCE IN A LIFETIME-USE SMARTSET# 98154 Completed 05/12/2014 Pneumococcal Vaccine: 65+ Years Completed [...] the patient have Health Care Power of Heat Set Operator? No Full Code 08/14/2010 2:57 PM 08/15/2010 2:24 PM Thi s order reflects the patients wishes and were consensually agreed upon. Care Teams Program Admin Relationship Specialty Start Date End Date Zachariah Duarte DO [address] [place] [address] PCP - General Family Medicine 12/20/20 documented as of this encounter
--- OUTSIDE RECORDS SUMMARY | 2023-08-28 08:41 | External Medical Summary ---
Author Name Unknown Address Unknown Organization K0G:[facility] [address] [place] [id number] Laboratory Report Ordering Provider Test Date Status ROBBY OLIVERA 03/29/2023 11:11:09 Final Observation Date Value Abnormality Reference (Units ) Status BUN 03/29/2023 11:11:09 18 6-20 (mg/dL) Final Creatinine 03/29/2023 11:11:09 1.3 Above high normal 0.6-1.2 (mg/dL) Final Glomerular filtration rate/1.73 sq M.predicted [Volume Rate/Area] in Serum, Plasma or Blood by Creatinine-based formula (CKD-EPI) 03/29/2023 11:11:09 57 Below low normal >=60 (mL/min) Final eGFR is calculated based on the CKD-EPI 2020 equation SODIUM 03/29/2023 11:11:09 136 135-146 (m mol/L) Final Potassium 03/29/2023 11:11:09 4.8 3.5-5.1 (m mol/L) Final Cl 03/29/2023 11:11:09 99 98-107 (mm ol/L) Final CO2 03/29/2023 11:11:09 25 22-32 (mmo l/L) Final Anion gap 03/29/2023 11:11:09 12 7-15 (mmol /L) Final Glucose 03/29/2023 11:11:09 97 70-120 (mg /dL) Final Albumin 03/29/2023 11:11:09 4.2 3.8-5.0 (g /dL) Final AST (Aspartate aminotransferase) 03/29/2023 11:11:09 18 10-50 (U/L) Final Alk Phos 03/29/2023 11:11:09 90 35-130 (U/ L) Final Bilirubin, Total 03/29/2023 11:11:09 0.4 <=1 .2 (mg/dL) Final Calcium 03/29/2023 11:11:09 8.8 8.4-10.2 ( mg/dL) Final Protein 03/29/2023 11:11:09 6.6 6.0-8.3 (g /dL) Final ALT (Alanine aminotransferase) 03/29/2023 11:11:09 13 10-50 (U/L) Final Performing Location [facility] [address] [facility] [address]
--- OUTSIDE RECORDS SUMMARY | 2023-08-28 08:41 | External Medical Summary ---
Author Name Unknown Address Unknown Organization K0G:[facility] [address] [place] [id number] Laboratory Report Ordering Provider Test Date Status ROBBY OLIVERA 03/29/2023 11:11:09 Final Observation Date Value Abnormality Reference (Units ) Status WBC, Total 03/29/2023 11:11:09 7.85 4.00-10.8 0 (K/uL) Final RBC 03/29/2023 11:11:09 4.46 4.50-5.25 (M/uL) Final Hemoglobin 03/29/2023 11:11:09 12.3 Below low normal 14 .0-16.8 (g/dL) Final HCT 03/29/2023 11:11:09 39.5 Below low normal 40. 0-48.4 (%) Final MCV 03/29/2023 11:11:09 88.6 82.0-99.5 (fL) Final MCH 03/29/2023 11:11:09 27.6 27.0-34.0 (pg) Final MCHC 03/29/2023 11:11:09 31.1 32.0-36.0 (g/dL) Final RDW 03/29/2023 11:11:09 15.7 11.5-15.5 (%) Final Platelets 03/29/2023 11:11:09 167 140-400 (K /uL) Final MPV 03/29/2023 11:11:09 10.5 6.6-11.1 ( fL) Final Performing Location [facility] [address] [place] [id number]
--- OUTSIDE RECORDS SUMMARY | 2023-08-28 08:41 | External Medical Summary ---
Author Name Unknown Address Unknown Organization K01:[facility] [place] [address] [place] [address] Laboratory Report Ordering Provider Test Date Status ROBBY OLIVERA 03/29/2023 11:11:09 Final Observation Date Value Abnormality Reference (Units ) Status TSH 03/29/2023 11:11:09 2.71 0.27-4.20 (uIU/mL) Final Performing Location LABORATORY C - [address] [place] [id number]
--- OUTSIDE RECORDS SUMMARY | 2023-08-28 08:41 | External Medical Summary | Summary of Care ---
Author Name Unknown Organization [facility] Address [address] [place] [address] Phone [phone] Care Team Providers Care Final Block Press Operator Name Role Phone Zachariah Duarte DO Primary Care Provider [phone] Reason for Visit * Reason Comments Hospital Follow-Up [facility] 01/21-01/27/23. SOB ongoing and tweaking oxygen level with concentrator to get the right balance. Denies chest pain, palpitations, dizziness and edema. Encounter Details Date Type Department Care Team Description 03/22/2023 Office Visit Cardiology, [facility] [address] [place] [address] Faby Singleton PA-C [address] [place] [address] Coronary artery disease of [place] artery of [place] heart with stable angina pectoris (HCC)*; S/P primary angioplasty with coronary stent; PAD (peripheral artery disease) ([facility]); Essential hypertension with goal blood pressure less than 140/90; Dyslipidemia, goal LDL below 70 Allergies Active Allergy Reactions Severity Noted Date Comments Propoxyphene N-Acetaminophen 06/22/2012 N/V Fentanyl Nausea/vomiting 10/15/2009 Oxycodone High 01/21/2023 Other reaction(s): vomiting Oxycodone-Acetaminophen Nausea/vomiting High 010 documented as of this encounter (statuses as of 03/22/2023) Medications Medication Sig Dispensed Refills Start Date End Date Status SYRINGE (DISPOSABLE) 5 ML MISCIndications:DM type 2 causing neurological disease (HCC) use as directed for lantus 1 box 11 09/11/2009 Active Chroma TherapeuticsTOUCH ULTRA 2 W/DEVICE KITIndications:DM type 2, goal A1C 7-8 use as directed 1 Kit 0 03/09/2012 Active Chroma TherapeuticsTOUCH DELICA LANCETS MISCIndications:DM type 2, goal A1C 7-8 use up to 4 times daily 100 Each 11 03/09/2012 Active Chroma TherapeuticsTOFidd[employer] ULTRA BLUE STRPIndications:DM type 2, goal A1C [...] 1 Each 0 04/09/2022 Active oxygen IN GASIndications:Floor Supervisor bobbi respiratory failure with hypoxia (HCC),Centrilobular [...] 90 Tablet 2 11/13/2022 4 Active Umeclidinium [place] 62.5 MCG/ACT Inhalation Aerosol Powder Breath Activated [...] 12 Hour (Ranexa)Indications :Coronary artery disease of northern [place] artery of [place] heart with stable angina pectoris (HCC) TAKE [...] as of this encounter (statuses as of 03/22/2023) Active Problems Problem Noted Date Age-related osteopor [...] artery disease of n ative artery of northern [place] heart with stable angina pectoris 01/30/2017 Overview: More specific. 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 History of TIA (transient ischemic attac k) documented as of this encounter (statuses as of 03/22/2023) Resolved Problems Problem Noted Date Resolved Date [...] as of this encounter (statuses as of 03/22/2023) Immunizations Name Administration Dates Next Due COVID-19 [...] Sign Reading Time Taken Comments Blood Pressure 144/82 03/22/2023 9:28 AM EDT Pulse 64 03/22/2023 9:28 AM EDT Temperature - - Respiratory Rate 16 03/22/2023 9:28 AM EDT Oxygen Saturation - - Inhaled Oxygen Concentration - - Weight 92 kg (202 lb 12 oz) 03/22/2023 9:28 AM E DT Height - - Body Mass Index 34.8 03/16/2023 1:47 PM EDT documented in this [...] this encounter Patient Instructions * Patient Instructions* Faby Singleton PA-C - 03/22/2023 9:58 AM EDT Restart spironolactone 25 mg - 1 tablet daily when it comes in the mail. After restarting the medicine, about 2 weeks later, go for fasting blood work (Mid-late March) documented in this encounter Progress Notes * Faby Singleton PA-C - 03/22/2023 9:35 AM EDT Images from the original note were not included. 03/22/2023 Cardiology F/U: Chief Complaint: Follow-up longstanding cardiovascular disease, chronic angina pectoris SUBJECTIVE: Kaleb Oakley is a 77 year old male here today for cardiology follow-up . Last clinicevaluation approximately [address] Ordonez. History includes : 1. Long-standing history of coronary artery disease status post remote coronary intervention with angioplasty to the right coronary artery in 1988. 2. History of coronary bypass grafting in 1997 for a diffuse 3-vessel disease receiving a PFEIFFER graft to the LAD, saphenous vein graft to the circumflex obtuse marginal, and saphenous vein graft to the posterior descending artery. 3. Chronic class II angina pectoris. 4. History of non-ST segment elevation myocardial infarction in the setting of demand based ischemia with associated spinal surgery in August 2012. 5. Chronic obstructive lung disease. 6. History of past TIA. 7. History of atherosclerotic peripheral vascular disease status post PTCA of the left external iliac and right common iliac arteries in July of 2010. 8. Atherosclerotic carotid plaquing. 9. Hyperlipidemia. 10. Long-standing insulin-dependent diabetes mellitus. 11. Chronic obstructive lung disease. 12. Status post coronary intervention, proximal and mid left circumflex on 01/29/2017, receiving drug-eluting stent to proximal lesion, balloon angioplasty to the distal lesion. 13. Non ST segment elevation myocardial infarction with crescendo angina March 01, 2019 with subsequent coronary intervention with drug-eluting stents x2 to the saphenous vein graft supplying the distal right coronary artery. Distal circumflex and right coronary artery were notably diffusely diseased. PFEIFFER graft patent Since last visit patient admitted to [facility] in January 2023 with weakness, ambulatory dysfunction and falls. He was noted to have compression fractures of his spine. Conservative medical therapies recommended. He was sent to rehab with mild improvement. Now ambulating with a walker. During admission he was also found to have a new left bundle branch block. High sensitivity troponin x3 was unremarkable. Patient was without chest pain or shortness of breath. He underwent updated echo which demonstrated preserved EF without significant valvular heart disease. No cardiac medications were adjusted on discharge. He presents today with his . He denies recurrent falls. No recent chest pain or unusual shortness of breath. No need for sublingual nitro. Taking medications as prescribed. Recently ran out of spironolactone. This was not on his current med list but patient reports he has been taking for many months. No edema. No palpitations. Review of Systems: See HPI for pertinent positives. All others negative, other than those noted in HPI. Patient Active Problem List Diagnosis Code History of TIA (transient ischemic attack) Z86.73 Preglaucoma H40.009 Lumbar disc disorder with myelopathy M51.06 Old myocardial infarction I25.2 Obstructive sleep apnea G47.33 Atherosclerosis of [place] artery of extremity ([facility]) I70.209 HTN (hypertension) I10 Dementia in Alzheimer's disease ([facility]) G30.9, F02.80 S/P primary angioplasty with coronary stent Z95.5 Coronary artery disease of [place] artery of [place] heart with stable angina pectoris ([facility]) I25.118 Ectatic abdominal aorta ([facility]) I77.811 PAD (peripheral artery disease) ([facility]) I73.9 Asymptomatic bilateral carotid artery stenosis I65.23 Gastro-esophageal reflux disease without esophagitis K21.9 Chronic kidney disease, stage 3a ([facility]) N18.31 Diastolic congestive heart failure ([facility]) I50.30 Atrial flutter ([facility]) I48.92 Centrilobular emphysema ([facility]) J43.2 Hypertensive heart and kidney disease with chronic diastolic congestive heart failure and [id number] chronic kidney disease ([facility]) I13.0, I50.32, N18.31 Chronic respiratory failure with hypoxia ([facility]) J96.11 Restrictive lung disease J98.4 Typical atrial flutter ([facility]) I48.3 COPD, group B, by GOLD 2017 classification ([facility]) J44.9 Severe obesity (BMI 35.0-39.9) with comorbidity ([facility]) E66.01 Type 2 diabetes mellitus without complication ([facility]) E11.9 Gait disturbance R26.9 Generalized weakness R53.1 Type 2 diabetes mellitus with peripheral artery disease ([facility]) E11.51 Type 2 diabetes mellitus with stage 3a chronic kidney disease, with long- term current use of insulin ([facility]) E11.22, N18.31, Z79.4 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 M80.08XD Type 2 diabetes mellitus with diabetic polyneuropathy, with long-term current use of insulin ([facility]) E11.42, Z79.4 Atherosclerosis of aorta ([facility]) I70.0 Review of patient's allergies indicates: Allergen Reactions Oxycodone Other reaction(s): vomiting Percocet [Oxycodone-Acetaminophen] Nausea/vomiting Darvocet [Propoxyphene N-Acetaminophen] N/V Fentanyl Nausea/vomiting Past Surgical History: Procedure Laterality Date ANGIOLPLASTY ILIAC,PERCUT 08/14/2010 percutaneous angioplasty of left external iliac and right common iliac stenoses, Dr. Royal AORTOGRAM ABDOMINAL-TECH ONLY 08/14/2010 IMAGING S&I ABDOMINAL AO performed [place] MICHAEL ROYAL [place] [facility] GRAFT ANGIOGRAPHY W/LEFT HEART CATH Left 01/29/2017 BYPASS GRAFT ANGIOGRAPHY W/LEFT HEART CATH performed by Tiffanie Contreras MD at [facility] [place]PASS GRAFT ANGIOGRAPHY W/LEFT HEART CATH Left 03/02/2019 BYPASS GRAFT ANGIOGRAPHY W/LEFT HEART CATH performed by Marco Antonio Cerda MD at [facility] COLONOSCOPY W/ BIOPSY (RECTUM) 03/07/2010 done diverticulosis, polyps x2 path shows adenomatous repeat in 5 years COLONOSCOPY, DIAGNOSTIC (RECTUM) 11/19/2020 tubular adenoma polyps, repeat 2 yrs health permiting/ COLONOSCOPY FLEXIBLE PROXIMAL DIAGNOSTIC performed by Silvia Howard MD at ENDOSCOPY [facility] COLONOSCOPY, GI REFERRAL OP 10/04/2003 normal CORONARY ARTERY BYPASS, SINGLE 11/21/1997 CABG(Peripheral Bypass) ?Triple CORONARY ARTERY DILATION, BALLOON 08/23/1988 Angioplasty (PALMAZ-LIDIA) EGD, FLEXIBLE, DIAGNOSTIC N/A 08/10/2022 gastritis/single bleeding angioectasia in stomach, treated with APC/biopsies normal/ESOPHAGOGASTRODUODENOSCOPY (EGD), FLEXIBLE, TRANSORAL, DIAGNOSTIC performed by Nelly Perez DO at OR [facility] INJECTION LUMBAR/SACRAL 08/23/2011 IR ARTERIOGRAM EXTREMITY BILATERAL 08/14/2010 ANGIOGRAPHY EXTREMITY BILATERAL performed by MICHAEL ROYAL at [place] [facility] [place] LAMINECTOMY/LAMINOTOMY, LUMBAR, GUIDE 09/08/2012 L4-5, L5-S1 laminectomy MISCELLANEOUS ORDER ([facility] ONLY) Angioplasty in leg, right REMOVE CATARACT, INSERT LENS PROSTH 10/22/2011 rt eye REMOVE CATARACT, INSERT LENS PROSTH 10/22/2011 left eye Current Outpatient Medications Medication Sig Dispense Refill SYRINGE (DISPOSABLE) 5 ML MISC use as directed for lantus 1 box 11 [employer] ULTRA 2 W/DEVICE KIT use as directed 1 Kit 0 Evver DELICA LANCETS MISC use up to 4 times daily 100 Each 11 Chroma TherapeuticsTOUCH ULTRA BLUE STRP TEST BLOOD SUGAR 7 [...] standing concentrator with sleep 1 Each 0 Ipratropium-Albuterol 0.5-2.5 (3) MG/3ML Inhalation Solution [...] NEEDED FOR SLEEP 90 Tablet 2 Umeclidinium [place] 62.5 MCG/ACT Inhalation Aerosol Powder Breath Activated [...] 1 Capsule by mouth in the morning. Ondansetron HCl 4 MG Oral Tablet (Zofran) TAKE ONE TABLET BY MOUTH EVERY 6 HOURS NEEDED FOR NAUSEA. 15 Tablet 0 No current facility-administered medications for this visit. OBJECTIVE/PHYSICAL EXAMINATION: BP 144/82 | Pulse 64 | Resp 16 | Wt 92 kg (202 lb 12 oz) | BMI 34.80 kg/m | BSA 2.04 m blood pressure my repeat 146/70 Blood pressure is equal in both arms General: Obese male in no acute distress Head: normocephalic, no masses, lesions, tenderness or abnormalities Eyes: conjunctiva are pink and non-injected, sclera clear Throat: clear Nares: without discharge Neck: supple, no adenopathy, , normal jugular venous pulse, no hepatojugular reflux, right carotid bruits Chest: Barrel-chested and normal respiratory effort Lungs: Diminished breath sounds with coarse crackles left base Cardiac Exam: - regular rate & rhythm, no murmurs gallops or rubs - normal S-1, normal S-2 Abdomen: abdomen soft, non-tender, no abnormal masses, no hepatosplenomegaly, no abdominal bruit, no femoral bruit Musculoskeletal: no gait disturbance, no joint inflammation, no deforming arthritis Extremities: Trace edema, left greater than right no cyanosis, diminished distal pulses Data: EKG performed today and reviewed personally: NSR with 1st degree AV block LAFB ST/T wave abnormality with diffuse T wave inversion in inferior and lateral leads. Compared with prior EKG at [facility], LBBB has resolved Echo report reviewed from [facility] dated January 2023: EKG March 16, 2022 Sinus rhythm with first-degree AV block, incomplete right bundle-branch block rate 70 beats per minute QT corrected 447 Echocardiogram [facility] October 21, 2021 Moderate left hypertrophy with normal wall motion EF 60 to 65% grade 2 diastolic dysfunction with mild left atrial enlargement aortic sclerosis trace mitral and tricuspid insufficiency Latest Reference Range & Units 12/20/20 16:14 Triglycerides <=174 mg/dL 95 Cholesterol <200 mg/dL 121 Non-HDL Cholesterol <=159 mg/dL 77 HDL Cholesterol >39 mg/dL 44 LDL Cholesterol <=129 mg/dL 58 Latest Reference Range & Units 12/01/22 08:53 Sodium 135 - 146 mmol/L 140 Potassium 3.5 - 5.1 mmol/L 4.5 Chloride 98 - 107 mmol/L 105 CO2 22 - 32 mmol/L 29 BUN 6 - 20 mg/dL 21 (H) Creatinine 0.6 - 1.2 mg/dL 1.1 Estimated Glomerular Filtration Rate >=60 mL/min 67 Anion Gap 7 - 15 mmol/L 6 (L) Glucose 70 - 120 mg/dL 160 (H) Calcium 8.4 - 10.2 mg/dL 8.3 (L) Protein 6.0 - 8.3 g/dL 5.6 (L) (H): Data is abnormally high (L): Data is abnormally low ASSESSMENT: 76 year old male ICD-10-CM 1. Coronary artery disease of [place] artery of [place] heart with stable angina pectoris ([facility]) I25.118 2. S/P primary angioplasty with coronary stent Z95.5 3. PAD (peripheral artery disease) ([facility]) I73.9 4. Essential hypertension with goal blood pressure less than 140/90 I10 5. Dyslipidemia, goal LDL below 70 E78.5 PLAN: Patient with recent hospitalization for weakness/falls, now improving. Ambulating with walker. On chronic anticoagulation. Safety precautions discussed. Continue plavix and coumadin for now. He has abnormal EKG today, with T wave inversions. Possible LVH with strain vs ischemia. He has no anginal complaints. His echo last month demonstrated normal LV function. Continue current therapies. BP is high. He ran out of spironolactone several days ago. This was stopped due to hyperkalemia in the fall, but apparently patient reports he has been taking it ever since. Will resume/refill as his recent renal function and potassium were normal while he was taking it. He will have f/u labs in approx 2-4 weeks. Orders placed. Patient Instructions Restart spironolactone 25 mg - 1 tablet daily when it comes in the mail. After restarting the medicine, about 2 weeks later, go for fasting blood work (Mid-late March) I spent a total of 40 minutes on the date of service in preparation, delivery, and documentation ofthe care provided to Kaleb Oakley excluding any time spent in the performance of separately billed services. The patient agrees to the above plan and will call with additional questions or concerns. ER with all emergencies advised. Follow-up: Return in about 6 months (around 09/22/2023). | Check-out note: 6 months with ERASMO BoatengC Department of Cardiology This chart was completed in part utilizing Fluency Speech Voice Recognition Software. Grammatical errors, random word insertions, prounoun errors, and incomplete sentences are an occasional consequence of this system due to software limitations, ambient noise, and hardware issues. Any formal questions or concerns about the content, text, or information contained within the body of this dictation should be directly addressed to the provider for clarification. documented in this encounter Nursing Notes * Pito Trinidad LPN - 03/22/2023 9:28 AM EDT Patient identified by full name and date of Chief Complaint Patient presents with Hospital Follow-Up [facility] 01/21-01/27/23. SOB ongoing and tweaking oxygen level with concentrator to get the right balance. Denies chest pain, palpitations, dizziness and edema. Examination Room: 6 Name: Kaleb Oakley Date of : (1945). Reason for Visit: HD follow up Interim Hospitalization(s): [facility] 01/21-01/27/23 Problems/Concerns: See chief complaint Chest Pain/SOB: See chief complaint [facility] Discussed: Yes [facility] is a way you can talk to your provider online through e-mail. Would you like to sign up? I can activate it for you? ALREADY ACTIVE Patient was instructed to not get up on the exam table until directed and assisted by their provider; patient is to remain seated in the chair/ wheelchair/ exam table for fall prevention and safety reasons. Patient is aware to have assistance to step down off exam table with personnel. Patient voiced full comprehension of instructions. documented in this encounter Plan of Treatment Upcoming Encounters Date Type Specialty Care Team Description 03/25/2023 Home Visit [facility] Kassy Campos, [facility] [address] [facility] [address] [facility] [address] 04/08/2023 Laboratory [place] [facility] [address] [facility] [place] [address] 04/09/20[facility] [address] [facility] [place] [address] 05/18/2023 Office Visit Family Medicine Zachariah Duarte, DO [address] [place] [address] 07/22/2023 Office Visit Sleep Disorders Marnie Hartmanaret, DO [address] [place] [address] Scheduled Orders Name Type Priority Associated Diagnoses Orde r Schedule LIPID PANEL WITH DIRECT LDL IF TG IS HIGH Lab Routine Coronary artery disease of [place] artery of [place] heart with stable angina pectoris (HCC) S/P primary angioplasty with coronary stent PAD (peripheral artery disease) (HCC) Essential hypertension with goal blood pressure less than 140/90 Dyslipidemia, goal LDL below 70 Expected: 04/05/2023, Expires: 03/22/2024 COMPREHENSIVE METABOLIC PANEL Lab Routine Coronary artery disease of [place] artery of [place] heart with stable angina pectoris (HCC) S/P primary angioplasty with coronary stent PAD (peripheral artery disease) (HCC) Essential hypertension with goal blood pressure less than 140/90 Dyslipidemia, goal LDL below 70 Expected: 04/05/2023, Expires: 03/22/2024 EKG EKG Routine Coronary artery disease of [place] artery of [place] heart with stable angina pectoris (HCC) Ordered: 03/22/2023 Scheduled Procedures Name Priority Associated Diagnoses Date/Ti [...] Additional history exists CKD PHOS USE SMARTSET 07422 07/02/202306/23, 07/01/2021, 03/22/2020 DIABETES-EYE EXAM 07/20/2023 07/20/2022, , 08/26/2020, Additional history exists O2 ASSESSMENT COMPLETED IN PAST YEAR FOR COPD 08/10/2023 08/10/2022 DISCUSS TOBACCO CESSATION (REFER TO SMARTSET #[id number]) 08/26/2023 08/26/2022, 05/27/2022, 02/11/2022, Additional history exists Depression Screening, Annual for Pts 12 and Over 11/21/2023 11/20/2022 CKD HGB USE SMARTSET 03926 12/02/202312/01, 12/01/2022, 02/06/2022, Additional history exists DXA Scan 03/11/2024 03/11/2023 DTaP,Tdap,and Td Vaccines (3 - Td or Tdap) 01/11/2028 01/10/2018, 10/03/2012 VITAMIN D LEVEL ONCE IN A LIFETIME-USE SMARTSET# [id number] Completed 05/12/2014 Pneumococcal Vaccine: 65+ Years Completed [...] as of this encounter Visit Diagnoses Diagnosis Coronary artery disease of [place] artery of [place] heart with stable angina pectoris (HCC)- Primary S/P primary angioplasty with coronary stent Postsurgical [...] the patient have Health Care Power of Retail Cashier Associate? No Full Code 08/14/2010 2:57 PM 08/15/2010 2:24 PM Thi s order reflects the patients wishes and were consensually agreed upon. Care Teams Final Block Press Operator Relationship Specialty Start Date End Date Zachariah Duarte DO [address] [place] [address] PCP - General Family Medicine 12/20/20 documented as of this encounter
--- OUTSIDE RECORDS SUMMARY | 2023-08-28 08:41 | External Medical Summary | Summary of Care ---
Author Name Unknown Organization [facility] Address [address] [facility] [place] [address] Phone [phone] Care Team Providers Care Station Examiner Name Role Phone Zachariah Duarte DO Primary Care Provider [phone] Reason for Visit * Reason Onset Date Comments Returning Call 03/24/2023 Encounter Details Date Type Department Care Team Description 03/24/2023 Telephone Family Practice [facility] [address] [place] [address] Zachariah Duarte DO [address] [place] [address] Returning Call Allergies Active Allergy Reactions Severity Noted Date Comments Propoxyphene N-Acetaminophen 06/22/2012 N/V Fentanyl Nausea/vomiting 10/15/2009 Oxycodone High 01/21/2023 Other reaction(s): vomiting Oxycodone-Acetaminophen Nausea/vomiting High 010 documented as of this encounter (statuses as of 03/24/2023) Medications Medication Sig Dispensed Refills Start Date [...] 1 Each 0 04/09/2022 Active oxygen IN GASIndications: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 respiratory failure with hypoxia (HCC),Centrilobular [...] 90 Tablet 2 11/13/2022 4 Active Umeclidinium [place] 62.5 MCG/ACT Inhalation Aerosol Powder Breath Activated [...] 12 Hour (Ranexa)Indications :Coronary artery disease of [place] artery of [place] heart with stable angina pectoris (HCC) TAKE [...] as of this encounter (statuses as of 03/24/2023) Active Problems Problem Noted Date Age-related osteopor [...] move") Medication Regimen o Class A - SAHMIKA-EMELINA Combination Inhaler, incruse Self-Management plan o High [...] artery disease of n ative artery of [place] heart with stable angina pectoris 01/30/2017 Overview: More specific. 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 17 Last Assessment & Plan: Cognition at baseline -not tolerating Aricept HTN (hypertension) 09/28/2012 Atherosclerosis of [place] artery of extr emity 06/22/2012 Obstructive sleep apnea 01/13/2010 Overview: ICD-10 update of inactive term Last Assessment & Plan: Compliant with CPAP Old myocardial infarction 10/25/2009 Lumbar disc disorder with myelopathy Overview: Fentanyl patch caused severe nausea and vomiting Failed ultram Oxycodone caused nausea Preglaucoma 08/29/1998 History of TIA (transient ischemic attac k) documented as of this encounter (statuses as of 03/24/2023) Resolved Problems Problem Noted Date Resolved Date [...] as of this encounter (statuses as of 03/24/2023) Immunizations Name Administration Dates Next Due COVID-19 [...] Miscellaneous Notes * Telephone Encounter - VENICE Larsen - 03/24/2023 10:36 AM EDT Patient returning call documented in this encounter Plan of Treatment Upcoming Encounters Date Type Specialty Care Team Description 03/25/2023 Home Visit [facility] Kassy Campos RN [address] [facility] [place], [place] [address] 03/29/2023 Office Visit Rheumatology Yudi Horowitz CRNP [address] [place] [address] 04/08/2023 Laboratory Laboratory Processing [facility], [facility] Mobile Home Draw [address] [place], [place] [address] 04/09/2023 [facility] [address] [facility] [place] [address] 05/18/2023 Office Visit Family Medicine Zachariah Duarte, DO [address] [place] [address] 07/22/2023 Office Visit Sleep Disorders Marnie Hartman, [address] [place] [address] Scheduled Procedures Name Priority Associated Diagnoses Date/Ti [...] Additional history exists CKD PHOS USE SMARTSET 55174 07/02/202306/23, 07/01/2021, 03/22/2020 DIABETES-EYE EXAM 07/20/2023 07/20/2022, , 08/26/2020, Additional history exists O2 ASSESSMENT COMPLETED IN PAST YEAR FOR COPD 08/10/2023 08/10/2022 DISCUSS TOBACCO CESSATION (REFER TO SMARTSET #3291) 08/26/2023 08/26/2022, 05/27/2022, 02/11/2022, Additional history exists Depression Screening, Annual for Pts 12 and Over 11/21/2023 11/20/2022 CKD HGB USE SMARTSET 47050 12/02/202312/01, 12/01/2022, 02/06/2022, Additional history exists DXA Scan 03/11/2024 03/11/2023 DTaP,Tdap,and Td Vaccines (3 - Td or Tdap) 01/11/2028 01/10/2018, 10/03/2012 VITAMIN D LEVEL ONCE IN A LIFETIME-USE SMARTSET# [id number] Completed 05/12/2014 Pneumococcal Vaccine: 65+ Years Completed [...] the patient have Health Care Power of Solaris Administrator? No Full Code 08/14/2010 2:57 PM 08/15/2010 2:24 PM Thi s order reflects the patients wishes and were consensually agreed upon. Care Teams Station Examiner Relationship Specialty Start Date End Date Zachariah Duarte DO [address] [place] [address] PCP - General Family Medicine 12/20/20 documented as of this encounter
--- OUTSIDE RECORDS SUMMARY | 2023-08-28 08:41 | External Medical Summary | Summary of Care ---
Author Name Unknown Organization [facility] Address [address] [facility] [place] [address] Phone [phone] Care Team Providers Care Presser And Blocker Knitted Goods Name Role Phone Kj Duarteinic Primary Care Provider [phone] Encounter Details Date Type Department Care Team Description 01/22/2023 Result Scan Unspecified Department <No scans attached> Allergies Active Allergy Reactions Severity Noted Date Comments Propoxyphene N-Acetaminophen 06/22/2012 N/V Fentanyl Nausea/vomiting 10/15/2009 Oxycodone High 01/21/2023 Other reaction(s): vomiting Oxycodone-Acetaminophen Nausea/vomiting High 010 documented as of this encounter (statuses as of 03/23/2023) Medications Medication Sig Dispensed Refills Start Date [...] 1 Each 0 04/09/2022 Active oxygen IN GASIndications: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 0 Active Metoprolol Tartrate 100 [...] 90 Tablet 2 11/13/2022 4 Active Umeclidinium [place] 62.5 MCG/ACT Inhalation Aerosol Powder Breath Activated (INCRUSE ellipta)Indications :COPD, group B, by GOLD 2017 classification ([facility]) INHALE ONE PUFF BY MOUTH EVERY [...] 12 Hour (Ranexa)Indications :Coronary artery disease of [place] artery of [place] heart with stable angina pectoris (HCC) TAKE [...] BEDTIME 90 Capsule 3 07/20/2022 3 Active documented as of this encounter (statuses as of 03/23/2023) Active Problems Problem Noted Date Age-related osteopor [...] artery disease of n ative artery of [place] heart with stable angina pectoris 01/30/2017 Overview: More specific. 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 17 Last Assessment & Plan: Cognition at baseline -not tolerating Aricept HTN (hypertension) 09/28/2012 Atherosclerosis of [place] artery of extr emity 06/22/2012 Obstructive sleep apnea 01/13/2010 Overview: ICD-10 update of inactive term Last Assessment & Plan: Compliant with CPAP Old myocardial infarction 10/25/2009 Lumbar disc disorder with myelopathy Overview: Fentanyl patch caused severe nausea and vomiting Failed ultram Oxycodone caused nausea Preglaucoma 08/29/1998 History of TIA (transient ischemic attac k) documented as of this encounter (statuses as of 03/23/2023) Resolved Problems Problem Noted Date Resolved Date Diabetic polyneuropathy asso ciated with type 1 diabetes mellitus 10/26/2022 10/26/2022 Hypertensive kidney disease with stage 3a chronic kidney disease 10/05/2022 10/20/2022 CKD stage 3 due to type 1 diabetes mellitus 1104/202001/26/2022 Overview: Per CKD protocol-More specific added to [...] as of this encounter (statuses as of 03/23/2023) Immunizations Name Administration Dates Next Due COVID-19 [...] Used Date Smoking Tobacco: Some Days Cigarettes 0.3 64 Last attempted to quit: 04/23/2022 Smokeless Tobacco: Never Comments:2 cigarettes per we ek Alcohol Use Standard Drinks/Week Comments Yes 0 [...] Visit [facility] Kassy Campos RN [address] [place] [address] 03/29/2023 Office Visit Rheumatology Yudi Horowitz CRNP [address] [place] [address] 04/08/2023 Laboratory Laboratory Processing [facility], [facility] Mobile Home Draw [address] [place] [address] 04/09/2023 [facility] [address] [place] [address] 05/18/2023 Office Visit Family Medicine Zachariah Duarte, DO [address] [place] [address] 07/22/2023 Office Visit Sleep Disorders Marnie Hartman, DO [address] [place] [address] Scheduled Procedures Name Priority Associated Diagnoses Date/Ti [...] Additional history exists CKD PHOS USE SMARTSET 28811 07/02/202306/23, 07/01/2021, 03/22/2020 DIABETES-EYE EXAM 07/20/2023 07/20/2022, , 08/26/2020, Additional history exists O2 ASSESSMENT COMPLETED IN PAST YEAR FOR COPD 08/10/2023 08/10/2022 DISCUSS TOBACCO CESSATION (REFER TO SMARTSET #3291) 08/26/2023 08/26/2022, 05/27/2022, 02/11/2022, Additional history exists Depression Screening, Annual for Pts 12 and Over 11/21/2023 11/20/2022 CKD HGB USE SMARTSET 48850 12/02/202312/01, 12/01/2022, 02/06/2022, Additional history exists DXA Scan 03/11/2024 03/11/2023 DTaP,Tdap,and Td Vaccines (3 - Td or Tdap) 01/11/2028 01/10/2018, 10/03/2012 VITAMIN D LEVEL ONCE IN A LIFETIME-USE SMARTSET# [id number] Completed 05/12/2014 Pneumococcal Vaccine: 65+ Years Completed [...] Procedure Name Priority Date/Time Associated Diagnosis Comments ECHOCARDIOLOGY SCANNED RESULT 01/22/2023 documented in this encounter Results * ECHOCARDIOLOGY SCANNED RESULT (01/22/2023) 01/22/2023 No Physician Data Unknown ECHOCARDIOLOGY documented in this encounter Advance Directives Latest [...] the patient have Health Care Power of Automation And Controls Instructor? No Full Code 08/14/2010 2:57 PM 08/15/2010 2:24 PM Thi s order reflects the patients wishes and were consensually agreed upon. Care Teams Presser And Blocker Knitted Goods Relationship Specialty Start Date End Date Zachariah Duarte DO [address] [place] [address] PCP - General Family Medicine 12/20/20 documented as of this encounter
--- OUTSIDE RECORDS SUMMARY | 2023-08-28 08:42 | External Medical Summary | Summary of Care ---
Author Name Unknown Organization [facility] Address [address] [facility] [place] [address] Phone [phone] Care Team Providers Care Campaign Specialist Name Role Phone Zachariah Duarte DO Primary Care Provider Reason for Visit * Reason Comments Follow Up COPD Sleep Apnea Emphysema RLDChronic Resp. 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); COPD, group B, by GOLD 2017 classification (HCC); Obstructive sleep apnea; Restrictive lung disease Allergies Active Allergy Reactions Severity Noted Date Comments Propoxyphene N-Acetaminophen 012 N/V Fentanyl Nausea/vomiting 10/15/2009 Oxycodone-Acetaminophen Nausea/vomiting High 010 documented as of this encounter (statuses as of 03/16/2023) Medications Medication Sig Dispensed Refills Start Date End Date Status SYRINGE (DISPOSABLE) 5 ML MISCIndications:DM type 2 causing neurological disease (HCC) use as directed for lantus 1 box 11 09/11/2009 Active ONETOUCH ULTRA 2 W/DEVICE KITIndications:DM type 2, goal A1C 7-8 use as directed 1 Kit 0 03/09/2012 Active [employer] WILLY ARELLANO MISCIndications:DM type 2, goal A1C 7-8 use up to 4 times daily 100 Each 11 03/09/2012 Active [employer] ULTRA BLUE STRPIndications:DM type 2, goal A1C [...] 1 Each 0 04/09/2022 Active oxygen IN GASIndications:Clothes Model bobbi respiratory failure with hypoxia (HCC),Centrilobular emphysema [...] 90 Tablet 2 11/13/2022 4 Active Umeclidinium Atwood 62.5 MCG/ACT Inhalation Aerosol Powder Breath Activated (INCRUSE ellipta)Indications :COPD, group B, by GOLD 2017 classification ([facility]) INHALE ONE PUFF BY MOUTH [...] 12 Hour (Ranexa)Indications :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 17 Last Assessment & Plan: Cognition at baseline -not tolerating Aricept HTN (hypertension) 09/28/2012 Atherosclerosis of pilot [place] artery of extr emity 06/22/2012 Obstructive sleep apnea 01/13/2010 Overview: ICD-10 update of inactive term Last Assessment & Plan: Compliant with CPAP Old myocardial infarction 10/25/2009 Lumbar disc disorder with myelopathy Overview: Fentanyl patch caused severe nausea and vomiting Failed ultram Oxycodone caused nausea Preglaucoma 08/29/1998 History of TIA (transient ischemic attac k) documented as of this encounter (statuses as of 03/16/2023) Resolved Problems Problem Noted Date Resolved Date [...] as of this encounter (statuses as of 03/16/2023) Immunizations Name Administration Dates Next Due COVID-19 [...] Sign Reading Time Taken Comments Blood Pressure 120/64 03/16/2023 1:47 PM EDT Pulse 49 03/16/2023 1:47 PM EDT Temperature 36.9 C (98.5 F) 03/16/2023 1:47 PM ED T Respiratory Rate 16 03/16/2023 1:47 PM EDT Oxygen Saturation 94% 03/16/2023 1:47 PM EDT Inhaled Oxygen Concentration - - Weight 90.3 kg (199 lb) 03/16/2023 1:47 PM EDT Height 162.6 cm (5' 4") 03/16/2023 1:47 PM EDT Body Mass Index 34.16 03/16/2023 1:47 PM EDT documented in this [...] as of this encounter Progress Notes * Grey Green MD - 03/16/2023 1:57 PM EDT 03/16/2023 Pulmonary Medicine, [address] [place] [id number] Kaleb Oakley 1945 male 77 year old Attending Physician Documentation: 76-year-old male history of chronic hypoxic respiratory failure requiring 4 L with exertion, 3 L bled in to CPAP at 9 cm, COPD gold B restrictive lung disease, history tobacco dependence, chronic heart failure preserved EF, GERD, chronic hypoxic respiratory status, peripheral vascular disease here for routine follow-up. He continues to smoke 1 cigarette a month He has hx of pneumonia He current inhalers are DuoNeb nebulizer, prn albuterol (not needing) and Incruse. He has controlled heartburn on ppi and pepcid. 6 minute walk test was repeated on 03/12/2023, patient required 4 L of oxygen for maintaining saturation above 90% during activity. Prior Exercise oximetry test from 03/2022 , Patient requires 2 L nasal cannula for SpO2 89% or higher. Patient should use 2 L nasal cannula with exertion. Patient walked a total of [address] chest 01/2023 showed unchanged right middle lobe ground-glass nodule. CT chest without contrast from 01/2022: Reviewed personally in PACS agree with radiology report. There is no significant mediastinal or evidence of large hilar adenopathy. There is mild apical emphysema There is no pleural effusion. There is no pneumothorax. Stable right upper lung nodules measuring less than 6 mm. Right-sided calcified granuloma. There is no pneumothorax. PFT from 01/2022 my interpretation: Restrictive ventilatory pattern with moderate gas transfer defect, unchanged from 2020 Assessment 1. COPD g 2. Chronic hypoxic respiratory for L with exertion, 3 L bled into cpap. Needs better adherance withexertional oxygen 3. CHF pEf 4. gerd wo esophagitis, controlled 5. Obesity Body mass index is 34.16 kg/m. 6. Restrictive lung disease- extrathoracic 7. Lung nodule , right middle lobe, ground-glass, on LD CT protocol 8. Tobacco use- continues to smoke a few times a month. Not ready to quit > 20 pack years totoal Follow Up: Return in about 1 year (around 03/16/2024) for Clinic Visit. | For: Clinic Visit | Check-out note: COPD Chronic Hypoxia Severe PVD Recent Fall with Amb Dysfunction RML GG Nodule, unchanged on LDCT Chronic warfarin AC status Plan: Increase oxygen to 4 L with activity, 3 L at night with CPAP C/w DuoNeb + Incruse + Rescue Albuterol LDCT to continue Continue with Warfarin AC status F/u 1 year Grey Green MD Subjective CC: Chief Complaint Patient presents with Follow Up COPD Sleep Apnea Emphysema RLD Chronic Resp. Failure with Hypoxia HPI: Nursing Notes: Yesenia Bailey LPN 03/16/23 1405 Signed Chief Complaint Patient presents with Follow Up COPD Sleep Apnea Emphysema RLD Chronic Resp. Failure with Hypoxia Interm History/Respiratory Symptoms Cough: productive Hemoptysis: no Sinus Symptoms: no Hospitalizations: no ED Trips: no Triggers: no Nocturnal: no CPAP/BiPAP/O2: Cpap O2 @ 3 lpm Travel Screening Question 03/16/2023 1:35 PM EDT - Filed by Patient Do you have any of the following new or worsening symptoms? None of these Have you recently been in contact with someone who was sick? No / Unsure Myc Visit Accident Related Question Question 03/16/2023 1:35 PM EDT - Filed by Patient Is this visit related to an accident? (i.e work, motor vehicle) No Mmrc Cat Question 03/16/2023 1:54 PM EDT - Filed by Yesenia Bailey LPN When do you become breathless? (3) I stop for breath after walking about 100 yards or after a few minutes on level ground How frequently do you cough? (1) Do you have phlegm in your chest? (0) - I have no phlegm (mucus) in my chest Is your chest tight? (0) - My chest does not feel tight at all How breathless do you become when walking up a hill or steps? (5) - When I walk up a hill or one flight of stairs I am very breathless How limited are you doing activities at home? (5) - I am very limited doing activities at home How confident are you leaving home with your lung condition? (0) - I am confident leaving my home despite my condition How soundly do you sleep? (0) - I sleep soundly How much energy do you have? (5) - I have no energy at all Total MMRC Score (range: 0 - 4) 3 Total CAT Score (range: 0 - 40) 16 Objective Filed Vitals: 03/16/23 1347 BP: 120/64 Pulse: 49 Resp: 16 Temp: 36.9 C (98.5 F) TempSrc: Tympanic SpO2: 94% Weight: 90.3 kg (199 lb) Height: 1.626 m (5' 4") Exam: Const: No signs of acute distress present. Head/Face: Normal on inspection. Eyes: Conjunctivae clear. Pupils equal round and reactive to light. ENMT: Oropharynx: No erythema, exudate or masses. Posterior pharynx is normal. Neck: Supple and symmetric. Resp: Respiratory examination as outlined above CV: Rate is regular. Rhythm is regular. No heart murmur appreciated. Extremities: No edema of the lower limbs bilaterally. Abdomen: Positive bowel sounds. Palpation of the abdomen reveals softness, but no distension or tenderness. No palpable hepatosplenomegaly. Musculo: Walks with a normal gait. Skin: Skin is warm and dry. Neuro: Coordination normal. No involuntary movement. Psych: Patient's attitude is cooperative. Mood is normal. Affect is normal. Tests reviewed with the patient: CT CHEST LOW DOSE SCAN LUNG CANCER SCREEN INITIAL Result Date: 02/10/2023 IMPRESSION: 1. LungRADS Category 2: Negative, benign appearance or behavior. 2. LungRADS Category S: Negative. No new/unknown potentially significant incidental findings requiring additional evaluation. 3. Incidental findings as above. RECOMMENDATIONS: Continued routine annual CT lung cancer screening. Next exam to be arranged by the Lung Cancer Screening Program on or around 02/09/2024 DEXA SCAN/BONE MINERAL AXIAL Result Date: 03/11/2023 S: Fracture risk is based on current National Osteoporosis Foundation (www.nof.org) Clinicians Guide and [place] Association of Clinical Endocrinology (AACE) Guidelines (www.aace.com) and the application of current WHO FRAX tool (https://www.kavita.ac.uk/FRAX/) as well as the 2017 [place] [employer] Glucocorticoid Induced Osteoporosis (GIOP) Guidelines (rheumatology.org/Practice-Quality/Clinical-Support/Ljmdefwo-Wzmqvory-Svryt lines) using Bone mineral density derived T-scoresand clinical risk factors obtained from the patient questionnaire. 1. The fracture risk is HIGH (based on non-traumatic fracture of the spine or hip) 2. The quality of the examination is GOOD. The values at the lumbar spine are falsely elevated, and therefore the values at the hip/femoral neck are a better reflection of fracture risk in this patient. 3. No previous study for comparison. SUGGESTIONS: Information concerning the evaluation and treatment of osteoporosis can be found at the National Osteoporosis Foundation website (www.nof.org) and [place] Association of Clinical Endocrinology (AACE-www.aace.com). Osteoporosis prevention and treatment begins bymodifying risk factors (such as smoking cessation and avoiding alcohol excess) and by participatingin weight-bearing activities and exercise. Issues related to fall prevention and home safety shouldbe addressed. Current NOF guidelines suggest 1200 to 1500 mg of calcium from diet and or supplemental sources. It is generally felt best to get calcium from ones diet. Calcium carbonate and calcium citrate are common calcium supplement choices in most local pharmacies. If the patient is taking aproton pump inhibitor, then calcium citrate should be the preferred supplement, if that is necessary. NOF guidelines for vitamin D are 800 to 1000 units of vitamin D3 daily. However, this may best be guided by measurement of 25-OH vitamin-D level, aiming for a level between 30 to 50 units (ng/ml).Additional information can be found at the FRAX website (https://www.kavita.ac.uk/FRAX/), and the [place] [employer]umat[employer] website (https://www.rheumatology.org/Practice-Quality/Clinical-Support/Clinical-Pr actice-Guidelines). 1. In a man with low bone mineral density, secondary causes of low bone mineral density should be considered. A 25-OH Vitamin D, serum calcium, and creatinine should be obtained. Other studies can be considered which would include a PTH, IEP, TSH, or Testosterone. For users of GLSS, there is an OSTEOPOROSIS Smart Set (#1146). Treatment with a bisphosphonate (such as Fosamax/Alendronate, Actonel/Risedronate, or Boniva/Ibandronate) should be considered. If the patient is unable to use an oral bisphosphonate, another agent such as IV bisphosphonates (Boniva/Ibandronate or Reclast/Zoledronic Acid ), Forteo/Teriparatide, or Prolia/Denosumab should be considered. 2. A repeat study should be considered in 2 years, after therapy is started CHELY CARLIN M.[facility]. [facility] Certified Clinical [employer] Worker Department of Rheumatology [facility] Available Radiologic data was reviewed by me in PACS. The images were shown to the patient and findings were discussed with the patient. HOME MEDICATIONS: Isosorbide Mononitrate ER 60 MG Oral Tablet Extended Release 24 Hour (Imdur) Tylenol 325 MG Oral Capsule (Acetaminophen) Metoprolol Tartrate 100 MG Oral Tablet (Lopressor) Memantine HCl 5 MG Oral Tablet (Namenda) Clopidogrel Bisulfate 75 MG Oral Tablet (pLAVix) traZODone HCl 100 MG Oral Tablet (Desyrel) Umeclidinium Atwood 62.5 MCG/ACT Inhalation Aerosol Powder Breath Activated (INCRUSE ellipta) Warfarin Sodium 5 MG Oral Tablet (Coumadin) Furosemide 20 MG Oral Tablet (Lasix) Atorvastatin Calcium 80 MG Oral Tablet (Lipitor) Pantoprazole Sodium 40 MG Oral Tablet Delayed Release (Protonix) Ranolazine ER 500 MG Oral Tablet Extended Release 12 Hour (Ranexa) Docusate Sodium 100 MG Oral Tablet Famotidine 20 MG Oral Tablet (Pepcid) Nortriptyline HCl 75 MG Oral Capsule (Pamelor) Ondansetron HCl 4 MG Oral Tablet (Zofran) oxygen IN GAS Ipratropium-Albuterol 0.5-2.5 (3) MG/3ML Inhalation Solution (Duoneb) Nebulizer Device oxygen IN GAS CPAP insulin isophane human (NOVOLIN N RELION) 100 UNIT/ML injection insulin REGULAR human (NOVOLIN R RELION) 100 UNIT/ML injection Misc Natural [employer] (T-RELIEF CBD+13) SUBL Insulin Syringe-Needle U-100 (BD INSULIN SYRINGE ULTRAFINE) 31G X 5/16" 0.5 ML MISC Magnesium Oxide 400 MG Tablet ONETOUCH ULTRA BLUE STRP ONETOUCH DELICA LANCETS MISC ONETOUCH ULTRA 2 W/DEVICE KIT SYRINGE (DISPOSABLE) 5 ML MISC ROS: No reported history of Hemoptysis, Hematemesis, Melena No reported history of Dysuria, Hematuria, Flank Pain No reported history of chronic headache, seizures No reported history of Fall or trauma . No reported history of recent change in weight or appetite. 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 Royal AORTOGRAM ABDOMINAL-TECH ONLY 08/14/2010 IMAGING S&I ABDOMINAL AO performed by MICHAEL ROYAL at OR [facility] BYPASS GRAFT ANGIOGRAPHY W/LEFT HEART CATH Left 01/29/2017 BYPASS GRAFT ANGIOGRAPHY W/LEFT HEART CATH performed by Tiffanie Contreras MD at CARDIAC LABS [facility] BYPASS GRAFT ANGIOGRAPHY W/LEFT HEART CATH Left 03/02/2019 BYPASS GRAFT ANGIOGRAPHY W/LEFT HEART CATH performed by Marco Antonio Cerda MD at CARDIAC LABS [facility] COLONOSCOPY W/ BIOPSY (RECTUM) 03/07/2010 done diverticulosis, polyps x2 path shows adenomatous repeat in 5 years COLONOSCOPY, DIAGNOSTIC (RECTUM) 11/19/2020 tubular adenoma polyps, repeat 2 yrs health permiting/ COLONOSCOPY FLEXIBLE PROXIMAL DIAGNOSTIC performed by Silvia Howard MD at ENDOSCOPY [facility] COLONOSCOPY, GI REFERRAL OP 10/04/2003 normal CORONARY ARTERY BYPASS, SINGLE 11/21/1997 CABG(Peripheral Bypass) ?Triple CORONARY ARTERY DILATION, BALLOON 08/23/1988 Angioplasty (PALMAZ-LIDIA) EGD, FLEXIBLE, DIAGNOSTIC N/A 08/10/2022 gastritis/single bleeding angioectasia in stomach, treated with APC/biopsies normal/ESOPHAGOGASTRODUODENOSCOPY (EGD), FLEXIBLE, TRANSORAL, DIAGNOSTIC performed by Nelly Perez DO at OR [facility] INJECTION LUMBAR/SACRAL 08/23/2011 IR ARTERIOGRAM EXTREMITY BILATERAL 08/14/2010 ANGIOGRAPHY EXTREMITY BILATERAL performed by MICHAEL ROYAL at OR [facility] LAMINECTOMY/LAMINOTOMY, LUMBAR, GUIDE 09/08/2012 L4-5, L5-S1 laminectomy MISCELLANEOUS ORDER ([facility]) Angioplasty in leg, right REMOVE CATARACT, INSERT LENS PROSTH 10/22/2011 rt eye REMOVE CATARACT, INSERT LENS PROSTH 10/22/2011 left eye Social History Socioeconomic History Marital status: Occupational History Occupation: retired Employer: [employer] Tobacco Use Smoking status: Some Days Packs/day: [...] marijuana card Sexual activity: Yes Partners: Female Social History Narrative 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 Social Determinants of Health Food Insecurity: No Food Insecurity Worried About Running Out of Food in the Last Year: Never true Ran Out of Food in the Last Year: Never true Family History Problem Relation Age of Onset Diabetes Mother Stroke Mother in her 70s Diabetes Father Heart attack Father Fatal [place] age 80 Heart attack Sister Fatal [place] age 55 Heart disease Sister CABG Breast Cancer Sister Diabetes Sister Heart failure Sister in her 60s Diabetes Sister Diabetes Brother COPD Brother Heart disease Brother age 77 Cancer Brother Pancreatic, in his 50s Heart Disorder Sister CABG and [place] age 55 Other ( as a baby) Sister Other (nephrolithiasis) Son required ESWL Other (no FH of kidney disease) Son Review of patient's allergies indicates: Allergen Reactions Percocet [Oxycodone-Acetaminophen] Nausea/vomiting Darvocet [Propoxyphene N-Acetaminophen] N/V Fentanyl Nausea/vomiting documented in this encounter Nursing Notes * Yesenia Bailey LPN - 03/16/2023 1:54 PM EDT Chief Complaint Patient presents with Follow Up COPD Sleep Apnea Emphysema RLD Chronic Resp. Failure with Hypoxia Interm History/Respiratory Symptoms Cough: productive Hemoptysis: no Sinus Symptoms: no Hospitalizations: no ED Trips: no Triggers: no Nocturnal: no CPAP/BiPAP/O2: Cpap O2 @ 3 lpm Travel Screening Question 03/16/2023 1:35 PM EDT - Filed by Patient Do you have any of the following new or worsening symptoms? None of these Have you recently been in contact with someone who was sick? No / Unsure Myc Visit Accident Related Question Question 03/16/2023 1:35 PM EDT - Filed by Patient Is this visit related to an accident? (i.e work, motor vehicle) No Mmrc Cat Question 03/16/2023 1:54 PM EDT - Filed by Yesenia Bailey LPN When do you become breathless? (3) I stop for breath after walking about 100 yards or after a few minutes on level ground How frequently do you cough? (1) Do you have phlegm in your chest? (0) - I have no phlegm (mucus) in my chest Is your chest tight? (0) - My chest does not feel tight at all How breathless do you become when walking up a hill or steps? (5) - When I walk up a hill or one flight of stairs I am very breathless How limited are you doing activities at home? (5) - I am very limited doing activities at home How confident are you leaving home with your lung condition? (0) - I am confident leaving my home despite my condition How soundly do you sleep? (0) - I sleep soundly How much energy do you have? (5) - I have no energy at all Total MMRC Score (range: 0 - 4) 3 Total CAT Score (range: 0 - 40) 16 documented in this encounter Plan of Treatment Upcoming Encounters Date Type Specialty Care Team Description 03/17/2023 Imaging Radiology 03/17/2023 Imaging Radiology 03/17/2023 Imaging Radiology 03/17/2023 Office Visit Vascular Surgery Marco Antonio Lara MD [address] [place] [address] 03/18/2023 Laboratory Laboratory Processing [facility] Mobile Home Draw [address] [place] [address] 03/19/2023 [facility] [address] [facility] [place] [address] 03/22/2023 Office Visit Cardiology Faby Singleton PA-C [address] [place] [address] 03/25/2023 Home Visit [facility] Kassy Campos, SWAPNA [address] [place] [address] 05/18/2023 Office Visit Family Medicine Zachariah Duarte, DO [address] [place] [address] 07/22/2023 Office Visit Sleep Disorders Marnie Hartman, DO [address] [place] [address] Scheduled Procedures Name Priority Associated Diagnoses Date/Ti [...] Additional history exists CKD PHOS USE SMARTSET 14708 07/02/202306/23, 07/01/2021, 03/22/2020 DIABETES-EYE EXAM 07/20/2023 07/20/2022, , 08/26/2020, Additional history exists O2 ASSESSMENT COMPLETED IN PAST YEAR FOR COPD 08/10/2023 08/10/2022 DISCUSS TOBACCO CESSATION (REFER TO SMARTSET #[id number]) 08/26/2023 08/26/2022, 05/27/2022, 02/11/2022, Additional history exists Depression Screening, Annual for Pts 12 and Over 11/21/2023 11/20/2022 CKD HGB USE SMARTSET 12864 12/02/202312/01, 12/01/2022, 02/06/2022, Additional history exists DXA Scan 03/11/2024 03/11/2023 DTaP,Tdap,and Td Vaccines (3 - Td or Tdap) 01/11/2028 01/10/2018, 10/03/2012 VITAMIN D LEVEL ONCE IN A LIFETIME-USE SMARTSET# [id number] Completed 05/12/2014 Pneumococcal Vaccine: 65+ Years Completed 05/14/2015, 09/11/2009, 07/12/2003 Zoster Vaccines Completed 03/22/2020, 08/30/2019 COLONOSCOPY-EVERY 5 YRS AGES 18-100 Discontinued 11/19/2020, 11/19/2020, 05/16/2015, Additional history exists Alpha-1 Antitrypsin Completed 03/11/2022 LUNG CANCER SCREENING - USE SMARTSET [id number] Completed 02/09/2023, 01/21/2022, 07/24/2021 GARDASIL-HPV IMMUNIZATION SERIES [...] with hypoxia (HCC)- Primary Chronic respiratory failure 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 No Full Code 08/14/2010 2:57 PM 08/15/2010 2:24 PM Thi s order reflects the patients wishes and were consensually agreed upon. Care Teams Campaign Specialist Relationship Specialty Start Date End Date Zachariah Duarte DO [address] [place] [address] PCP - General Family Medicine 12/20/20 documented as of this encounter
--- OUTSIDE RECORDS SUMMARY | 2023-08-28 08:42 | External Medical Summary | Summary of Care ---
Author Name Unknown Organization [facility] Address [address] [place] [address] Phone [phone] Care Team Providers Care Adult Crossing Guard Name Role Phone Kj Duarteinic Primary Care Provider Reason for Visit * Reason Onset Date Comments STAIR AAA 03/17/2023 Encounter Details Date Type Department Care Team Description 03/17/2023 Telephone STAIR AAA [address], [place] [id number] Program, Stair [address] [place] [address] STAIR AAA Allergies Active Allergy Reactions Severity Noted Date [...] 1 Each 0 04/09/2022 Active oxygen IN GASIndications:Rn Angiography bobbi respiratory failure with hypoxia (HCC),Centrilobular emphysema [...] 90 Tablet 2 11/13/2022 4 Active Umeclidinium [place] 62.5 MCG/ACT Inhalation Aerosol Powder Breath Activated (INCRUSE ellipta)Indications :COPD, group B, by GOLD 2017 classification ([facility]) INHALE ONE PUFF BY MOUTH EVERY DAY [...] Hour (Ranexa)Indications :Coronary artery disease of [place] artery of [place] heart with stable angina pectoris (HCC) TAKE [...] disease of n ative artery of [place] heart with stable angina pectoris 01/30/2017 Overview: More specific. 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 17 Last Assessment & Plan: Cognition at baseline -not tolerating Aricept HTN (hypertension) 09/28/2012 Atherosclerosis of [place] artery of extr emity 06/22/2012 Obstructive sleep [...] Problem Noted Date Resolved Date Diabetic polyneuropathy asskristy ciated with type 1 diabetes mellitus 10/26/2022 [...] encounter Miscellaneous Notes * Telephone Encounter - Kassy Morales LPN - 03/17/2023 11:03 AM EDT AAA - Clinical Summary Name: Kaleb Oakley Age: [age] year old AAA Review: Follow-up Patient Identified by: Problem List Report Imaging Interpretation: Duplex Type of Result: Other AAA Care Plan Recommendation: Other - details below Details: None Next steps: No action needed at this time. Per vascular note from today, patient does not meet qualifications for STAIR. Patient disenrolled from STAIR Program for Abdominal Aortic Aneurysm - banner removed Kassy Morales LPN Coordinator STAIR (System to Track Abnormalities of Importance Reliably) [facility] AORTIC DUPLEX EVAL-COMPLETE 03/17/2023 Narrative VASCULAR LAB RESULTS DATE OF EXAM: 03/17/23 PRESENTING CONDITIONS: ectasia This is an interpretation of an exam performed at [facility]. Immediately before proceeding with the vascular lab procedure reported below, the identity of the patient, the correct exam and the correct procedural site were verified. Royal scale, color flow and spectral doppler were performed for this examination. PHYSICIAN REPORT: Abdominal Aorta Duplex Examination. Spectral Doppler demonstrates evidence of normal waveforms of the abdominal aorta. Peak systolic velocity measurements of the aorta are 95.0 centimeters per second. The proximal abdominal aorta was not visualized. The maximum diameter of the mid abdominal aorta measures 2.2 centimeters by 2.2 centimeters. The maximum diameter of the distal abdominal aorta measures 1.6 centimeters by 1.6 centimeters. The maximum diameter of the proximal right common iliac artery measures 0.88 centimeters by 0.86 centimeters. The maximum diameter of the proximal left common iliac artery measures 0.81 centimeters by 0.78 centimeters. Impression : There is no evidence of an abdominal aortic aneurysm. documented in this encounter Plan of Treatment Upcoming Encounters Date Type Specialty Care Team Description 03/18/2023 Laboratory [place] [facility] [place] [facility] Mobile Home Draw [address] [place] [address] 03/19/2023 [address]tico[address] [facility] [address] [place] [address] 03/22/2023 Office Visit Cardiology Faby Singleton PA-C [address] [place] [address] 03/25/2023 Home Visit [facility] Kassy Campos RN [address] [place] [address] 05/18/2023 Office Visit Family Medicine Zachariah Duarte, [address] [place] [address] 07/22/2023 Office Visit Sleep Disorders Marnie Hartman DO [address] [place] [address] Scheduled Procedures Name Priority Associated Diagnoses Date/Ti [...] Additional history exists CKD PHOS USE SMARTSET 62966 07/02/202306/23, 07/01/2021, 03/22/2020 DIABETES-EYE EXAM 07/20/2023 07/20/2022, , 08/26/2020, Additional history exists O2 ASSESSMENT COMPLETED IN PAST YEAR FOR COPD 08/10/2023 08/10/2022 DISCUSS TOBACCO CESSATION (REFER TO SMARTSET #2691) 08/26/2023 08/26/2022, 05/27/2022, 02/11/2022, Additional history exists Depression Screening, Annual for Pts 12 and Over 11/21/2023 11/20/2022 CKD HGB USE SMARTSET 45085 12/02/202312/01, 12/01/2022, 02/06/2022, Additional history exists DXA Scan 03/11/2024 03/11/2023 DTaP,Tdap,and Td Vaccines (3 - Td or Tdap) 01/11/2028 01/10/2018, 10/03/2012 VITAMIN D LEVEL ONCE IN A LIFETIME-USE SMARTSET# [id number] Completed 05/12/2014 Pneumococcal Vaccine: 65+ Years Completed 05/14/2015, 09/11/2009, 07/12/2003 Zoster Vaccines Completed 03/22/2020, 08/30/2019 COLONOSCOPY-EVERY 5 YRS AGES 18-100 Discontinued 11/19/2020, 11/19/2020, 05/16/2015, Additional history exists Alpha-1 Antitrypsin Completed 03/11/2022 LUNG CANCER SCREENING - USE SMARTSET 92490 Completed 02/09/2023, 01/21/2022, 07/24/2021 GARDASIL-HPV IMMUNIZATION SERIES [...] the patient have Health Care Power of Sales Correspondent? No Full Code 08/14/2010 2:57 PM 08/15/2010 2:24 PM Thi s order reflects the patients wishes and were consensually agreed upon. Care Teams Adult Crossing Guard Relationship Specialty Start Date End Date Zachariah Duarte DO [address] [place] [address] PCP - General Family Medicine 12/20/20 documented as of this encounter
--- OUTSIDE RECORDS SUMMARY | 2023-08-28 08:42 | External Medical Summary | Summary of Care ---
Author Name Unknown Organization [facility] Address [address] [facility] [place] [place] [address] Phone [phone] Care Team Providers Care Curing Room Worker Name Role Phone Zachariah Duarte DO Primary Care Provider [phone] Reason for Visit * Reason Onset Date Comments Referral 03/05/2023 [facility] Discharge ( DM ) Encounter Details Date Type Department Care Team Description 03/05/2023 Telephone Pharmacy, [facility] [address] [facility] [place] [address] [place] [address] Referral ([facility] Discharge ( DM )) Allergies Active Allergy Reactions Severity Noted Date Comments Propoxyphene N-Acetaminophen 012 N/V Fentanyl Nausea/vomiting 10/15/2009 Oxycodone-Acetaminophen Nausea/vomiting High 010 documented as of this encounter (statuses as of 03/05/2023) Medications Medication Sig Dispensed Refills Start Date End Date Status SYRINGE (DISPOSABLE) 5 ML MISCIndications:DM type 2 causing neurological disease (HCC) use as directed for lantus 1 box 11 09/11/2009 Active ONETOUCH ULTRA 2 W/DEVICE KITIndications:DM type 2, goal A1C 7-8 use as directed 1 Kit 0 03/09/2012 Active ChalkboardTOUCH DELICA LANCETS MISCIndications:DM type 2, goal A1C [...] 1 Each 0 04/09/2022 Active oxygen IN GASIndications:Cabin Supervisor bobbi respiratory failure with hypoxia (HCC),Centrilobular [...] 90 Tablet 2 11/13/2022 4 Active Umeclidinium [place] 62.5 MCG/ACT Inhalation Aerosol Powder Breath Activated [...] 12 Hour (Ranexa)Indications :Coronary artery disease of [place] artery of [place] heart with stable angina pectoris (HCC) [...] as of this encounter (statuses as of 03/05/2023) Active Problems Problem Noted Date Age-related osteopor [...] artery disease of n ative artery of [place] heart with stable angina pectoris 01/30/2017 Overview: More specific. 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 17 Last Assessment & Plan: Cognition at baseline -not tolerating Aricept HTN (hypertension) 09/28/2012 Atherosclerosis of [place] artery of extr emity 06/22/2012 Obstructive sleep apnea 01/13/2010 Overview: ICD-10 update of inactive term Last Assessment & Plan: Compliant with CPAP Old myocardial infarction 10/25/2009 Lumbar disc disorder with myelopathy Overview: Fentanyl patch caused severe nausea and vomiting Failed ultram Oxycodone caused nausea Preglaucoma 08/29/1998 History of TIA (transient ischemic attac k) documented as of this encounter (statuses as of 03/05/2023) Resolved Problems Problem Noted Date Resolved Date [...] as of this encounter (statuses as of 03/05/2023) Immunizations Name Administration Dates Next Due COVID-19 [...] Never Comments:2 - 3 cigarettes pe r month02/10/23-1 ppd, started age 11 until 76. Alcohol Use Standard Drinks/Week Comments Yes 0 [...] encounter Miscellaneous Notes * Telephone Encounter - SHIKHA Hernandez - 03/05/2023 11:34 AM EDT Kaleb has not contacted the clinic to schedule/reschedule an appointment for diabetes management per referral from PCP despite multiple requests (via phone, letter and/or [facility]) to do so by our team. Patient is discharged from [facility] services at this time. Thank you, Delia Navarro Websphere Consultant [facility] ([facility]) (formerly Telepharmacy) [phone] 03/05/2023,11:35 AM documented in this encounter Plan of Treatment Upcoming Encounters Date Type Specialty Care Team Description 03/11/2023 Imaging Radiology 03/15/2023 [facility]pos[facility] [facility] [place] [address] 03/17/2023 Imaging Radiology 03/17/2023 Imaging Radiology 03/17/2023 Imaging Radiology 03/17/2023 Office Visit Vascular Surgery Marco Antonio Lara MD [address] [place] [address] 03/18/2023 Laboratory Laboratory Processing [facility] [facility] Mobile Home Draw [address] [place] [address] 03/19/2023 [facility] [address] [place] [address] 05/18/2023 Office Visit Family Medicine Zachariah Duarte, DO [address] [place] [address] 07/22/2023 Office Visit Sleep Disorders Marnie Hartman DO [address] [place] [address] Scheduled Procedures Name Priority Associated Diagnoses Date/Ti me COLONOSCOPY FLEXIBLE PROXIMAL DIAGNOSTIC Recall History of colon polyps Health Maintenance Due Date Last Done Comments DXA Scan 1945 COVID-19 Vaccine (6 - Moderna series) 02/17/2022 [...] 2023 05/27/2022, 06/23/2021, 05/04/2020, Additional history exists AAA ULTRASOUND YEARLY 05/01/2023 05/01/2022 , 04/07/2022, 01/08/2020, Additional history exists GFR 06/02/2023 12/01/2022, 06/23, 03/25/2022, Additional history exists CKD PHOS USE SMARTSET 14768 07/02/202306/23, 07/01/2021, 03/22/2020 DIABETES-EYE EXAM 07/20/2023 07/20/2022, , 08/26/2020, Additional history exists O2 ASSESSMENT COMPLETED IN PAST YEAR FOR COPD 08/10/2023 08/10/2022 DISCUSS TOBACCO CESSATION (REFER TO SMARTSET #3291) 08/26/2023 08/26/2022, 05/27/2022, 02/11/2022, Additional history exists Depression Screening, Annual for Pts 12 and Over 11/21/2023 11/20/2022 CKD HGB USE SMARTSET 57044 12/02/202312/01, 12/01/2022, 02/06/2022, Additional history exists DTaP,Tdap,and Td Vaccines (3 - Td or Tdap) 01/11/2028 01/10/2018, 10/03/2012 VITAMIN D LEVEL ONCE IN A LIFETIME-USE SMARTSET# 66340 Completed 05/12/2014 Pneumococcal Vaccine: 65+ Years Completed [...] the patient have Health Care Power of Marine Oil Terminal Superintendent? No Full Code 08/14/2010 2:57 PM 08/15/2010 2:24 PM Thi s order reflects the patients wishes and were consensually agreed upon. Care Teams Curing Room Worker Relationship Specialty Start Date End Date Zachariah Duarte DO [address] [place] [address] PCP - General Family Medicine 12/20/20 documented as of this encounter
--- OUTSIDE RECORDS SUMMARY | 2023-08-28 08:42 | External Medical Summary | Summary of Care ---
Author Name Unknown Organization [facility] Address [address] [place] [address] Phone [phone] Care Team Providers Care Linemarker Name Role Phone Kj Duarteinic Primary Care Provider Reason for Visit * Reason Comments Follow Up Encounter Details Date Type Department Care Team Description 03/17/2023 [facility] Visit [facility] [address] Marco Antonio Lara MD [address] [place] [address] PVD (peripheral vascular disease) (HCC)*; [...] 1 Each 0 04/09/2022 Active oxygen IN GASIndications:Mobile Solutions Architect bobbi respiratory failure with hypoxia [...] 90 Tablet 2 11/13/2022 4 Active Umeclidinium [place] 62.5 MCG/ACT Inhalation Aerosol Powder Breath Activated (INCRUSE ellipta)Indications :COPD, group B, by GOLD 2017 classification ([facility]) INHALE ONE PUFF BY MOUTH [...] 12 Hour (Ranexa)Indications :Coronary artery disease of [place] artery of [place] heart with stable angina pectoris (HCC) TAKE [...] artery disease of n ative artery of [place] heart with stable angina pectoris 01/30/2017 Overview: More specific. 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 17 Last Assessment & Plan: Cognition at baseline -not tolerating Aricept HTN (hypertension) 09/28/2012 Atherosclerosis of [place] artery of extr emity 06/22/2012 Obstructive sleep [...] amaurosis fugax. 02/2022 Carotid duplex exam at [facility] identified the right internal carotid with ~ 50% stenosis and the left internal carotid with less than 50% stenosis. Prior Neck CTA at [facility] identified the right internal carotid with 66% [...] as directed for lantus 1 box 11 PorteroTOUCH ULTRA 2 W/DEVICE KIT use as directed 1 Kit 0 PorteroTOUCH DELICA LANCETS MISC use up to 4 [...] NEEDED FOR SLEEP 90 Tablet 2 Umeclidinium [place] 62.5 MCG/ACT Inhalation Aerosol Powder Breath Activated [...] I25.2 Obstructive sleep apnea G47.33 Atherosclerosis of [place] artery of extremity ([facility]) I70.209 HTN (hypertension) I10 Dementia in Alzheimer's disease ([facility]) G30.9, F02.80 S/P primary angioplasty with coronary stent Z95.5 Coronary artery disease of [place] artery of [place] heart with stable angina pectoris ([facility]) I25.118 Ectatic abdominal aorta ([facility]) I77.811 PAD (peripheral artery disease) ([facility]) I73.9 Asymptomatic bilateral carotid artery stenosis I65.23 Gastro-esophageal reflux disease without esophagitis K21.9 Chronic kidney disease, stage 3a ([facility]) N18.31 Diastolic congestive heart failure (HCC) I50.30 Atrial flutter (HCC) I48.92 Centrilobular emphysema ([facility]) J43.2 Hypertensive heart and kidney disease with chronic diastolic congestive heart failure and keyva3p chronic kidney disease ([facility]) I13.0, I50.32, N18.31 Chronic respiratory failure with hypoxia ([facility]) J96.11 Restrictive lung disease J98.4 Typical atrial flutter ([facility]) I48.3 COPD, group B, by GOLD 2017 classification ([facility]) J44.9 Severe obesity (BMI 35.0-39.9) with comorbidity ([facility]) E66.01 Type 2 diabetes mellitus without complication ([facility]) E11.9 Gait disturbance R26.9 Generalized weakness R53.1 Type 2 diabetes mellitus with peripheral artery disease ([facility]) E11.51 Type 2 diabetes mellitus with stage 3a chronic kidney disease, with long- term current use of insulin ([facility]) E11.22, N18.31, Z79.4 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 M80.08XD Type 2 diabetes mellitus with diabetic polyneuropathy, with long-term current use of insulin ([facility]) E11.42, Z79.4 Atherosclerosis of aorta ([facility]) I70.0 Past Medical History: Diagnosis Date AAA (abdominal aortic aneurysm) ([facility]) 04/04/2014 ASCVD (arteriosclerotic cardiovascular disease) Benign neoplasm of colon 03/17/2010 diverticulosis, polyps x2 path shows adenomatous repeat in 5 years Cardiac catheterization as the cause of abnormal reaction of patient, or of later complication,without mention of misadventure at time of procedure Cardiac Cath COPD (chronic obstructive pulmonary disease) ([facility]) GERD (gastroesophageal reflux disease) Lung nodule Mild nonproliferative diabetic retinopathy without macular edema associated with type 1 diabetes mellitus ([facility]) 07/01/[address] NSTEMI (non-ST elevated myocardial infarction) ([facility]) 03/02/2019 Sleep apnea, obstructive Venous thrombosis 09/26/2012 LE DVT - Aug 2012 Past Surgical History: Procedure Laterality Date ANGIOLPLASTY ILIAC,PERCUT 08/14/2010 percutaneous angioplasty of left external iliac and right common iliac stenoses, Dr. Royal AORTOGRAM ABDOMINAL-TECH ONLY 08/14/2010 IMAGING S&I ABDOMINAL AO performed by MICHAEL ROYAL at OR [facility] BYPASS GRAFT ANGIOGRAPHY W/LEFT HEART CATH Left 01/29/2017 BYPASS GRAFT ANGIOGRAPHY W/LEFT HEART CATH performed by Tiffanie Contreras MD at CARDIAC LABS [facility] BYPASS GRAFT ANGIOGRAPHY W/LEFT HEART CATH Left 03/02/2019 BYPASS GRAFT ANGIOGRAPHY W/LEFT HEART CATH performed by Marco Antonio Cerda MD at CARDIAC LABS [facility] COLONOSCOPY W/ BIOPSY (RECTUM) 03/07/2010 done diverticulosis, polyps x2 path shows adenomatous repeat in 5 years COLONOSCOPY, DIAGNOSTIC (RECTUM) 11/19/2020 tubular adenoma polyps, repeat 2 yrs health permiting/ COLONOSCOPY FLEXIBLE PROXIMAL DIAGNOSTIC performed by Silvia Howard MD at [facility]COPY [facility] COLONOSCOPY, GI REFERRAL OP 10/04/2003 normal CORONARY ARTERY BYPASS, SINGLE 11/21/1997 CABG(Peripheral Bypass) ?Triple CORONARY ARTERY DILATION, BALLOON 08/23/1988 Angioplasty (PALMAZ-LIDIA) EGD, FLEXIBLE, DIAGNOSTIC N/A 08/10/2022 gastritis/single bleeding angioectasia in stomach, treated with APC/biopsies normal/ESOPHAGOGASTRODUODENOSCOPY (EGD), FLEXIBLE, TRANSORAL, DIAGNOSTIC performed by Nelly Perez DO at OR [facility] INJECTION LUMBAR/SACRAL 08/23/2011 IR ARTERIOGRAM EXTREMITY BILATERAL 08/14/2010 ANGIOGRAPHY EXTREMITY BILATERAL performed by MICHAEL ROYAL at OR [facility] LAMINECTOMY/LAMINOTOMY, LUMBAR, GUIDE 09/08/2012 L4-5, L5-S1 laminectomy MISCELLANEOUS ORDER ([facility] ONLY) Angioplasty in leg, right [...] on file Occupational History Occupation: retired Employer: [employer]. 18[employer] Tobacco Use Smoking status: Some Days Packs/day: [...] MD Section of Vascular [place] [address] [phone] documented in this encounter Nursing Notes * [...] Care Team Description 03/18/2023 Laboratory Laboratory Processing [facility] Mobile Home Draw [address] [place] [address] 03/19/[address] [facility] [address] [facility] [place] [address] 03/22/2023 Office Visit Cardiology Faby Singleton, [place] [address] [place] [address] 03/25/2023 [facility] Kassy Campos, [facility] [address] [facility] [address] 05/18/2023 Office Visit Family Medicine Zachariah Duarte, DO [address] [place] [address] 07/22/2023 Office Visit Sleep Disorders Marnie Hartman, DO [address] [place] [address] Scheduled Orders Name Type Priority Associated Diagnoses [...] Additional history exists CKD PHOS USE SMARTSET 85824 07/02/202306/23, 07/01/2021, 03/22/2020 DIABETES-EYE EXAM 07/20/2023 07/20/2022, , 08/26/2020, Additional history exists O2 ASSESSMENT COMPLETED IN PAST YEAR FOR COPD 08/10/2023 08/10/2022 DISCUSS TOBACCO CESSATION (REFER TO SMARTSET #3291) 08/26/2023 08/26/2022, 05/27/2022, 02/11/2022, Additional history exists Depression Screening, Annual for Pts 12 and Over 11/21/2023 11/20/2022 CKD HGB USE SMARTSET 52134 12/02/202312/01, 12/01/2022, 02/06/2022, Additional history exists DXA Scan 03/11/2024 03/11/2023 DTaP,Tdap,and Td Vaccines (3 - Td or Tdap) 01/11/2028 01/10/2018, 10/03/2012 VITAMIN D LEVEL ONCE IN A LIFETIME-USE SMARTSET# [id number] Completed 05/12/2014 Pneumococcal Vaccine: 65+ Years Completed 05/14/2015, 09/11/2009, 07/12/2003 Zoster Vaccines Completed 03/22/2020, 08/30/2019 COLONOSCOPY-EVERY 5 YRS AGES 18-100 Discontinued 11/19/2020, 11/19/2020, 05/16/2015, Additional history exists Alpha-1 Antitrypsin Completed 03/11/2022 LUNG CANCER SCREENING - USE SMARTSET 19330 Completed 02/09/2023, 01/21/2022, 07/24/2021 GARDASIL-HPV IMMUNIZATION SERIES [...] the patient have Health Care Power of Sprayer Leather? No Full Code 08/14/2010 2:57 PM 08/15/2010 2:24 PM Thi s order reflects the patients wishes and were consensually agreed upon. Care Teams Linemarker Relationship Specialty Start Date End Date Zachariah Duarte DO [address] [place] [address] PCP - General Family Medicine 12/20/20 documented as of this encounter
--- OUTSIDE RECORDS SUMMARY | 2023-08-28 08:42 | External Medical Summary | Summary of Care ---
Author Name Unknown Organization [facility] Address [address] [facility] [place] [address] Phone [phone] Care Team Providers Care Healthcare Translator Name Role Phone Zachariah Duarte DO Primary Care Provider Reason for Visit * Reason Comments Oxygen Assessment 6 minute walk Encounter Details Date Type Department Care Team Description 03/12/2023 PulmDiagnostic Pulmonary Function Lab, [facility] [address] [place] [address] Post, [facility] [place] [address] Chronic respiratory failure with hypoxia (HCC)* Allergies Active Allergy Reactions Severity Noted Date Comments Propoxyphene N-Acetaminophen 012 N/V Fentanyl Nausea/vomiting 10/15/2009 Oxycodone-Acetaminophen Nausea/vomiting High 010 documented as of this encounter (statuses as of 03/12/2023) Medications Medication Sig Dispensed Refills Start Date End Date Status SYRINGE (DISPOSABLE) 5 ML MISCIndications:DM type 2 causing neurological disease (HCC) use as directed for lantus 1 box 11 09/11/2009 Active ONETOUCH ULTRA 2 W/DEVICE KITIndications:DM type 2, goal A1C 7-8 use as directed 1 Kit 0 03/09/2012 Active NipendoTOUCH DELICA LANCETS MISCIndications:DM type 2, goal A1C [...] 1 Each 0 04/09/2022 Active oxygen IN GASIndications: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 respiratory failure with hypoxia (HCC),Centrilobular emphysema [...] 90 Tablet 2 11/13/2022 4 Active Umeclidinium [place] 62.5 MCG/ACT Inhalation Aerosol Powder Breath Activated [...] as of this encounter (statuses as of 03/12/2023) Active Problems Problem Noted Date Age-related osteopor [...] as of this encounter (statuses as of 03/12/2023) Resolved Problems Problem Noted Date Resolved Date [...] as of this encounter (statuses as of 03/12/2023) Immunizations Name Administration Dates Next Due COVID-19 [...] Sign Reading Time Taken Comments Blood Pressure 120/60 03/12/2023 11:36 AM EDT Pulse 64 03/12/2023 11:36 AM EDT Temperature 35.3 C (95.5 F) 03/12/2023 11:36 AM E DT Respiratory Rate 18 03/12/2023 11:36 AM EDT Oxygen Saturation 90% 03/12/2023 11:36 AM EDT Inhaled Oxygen Concentration - - Weight 90.4 kg (199 lb 4.7 oz) 03/12/2023 11:36 AM EDT Height 163.5 cm (5' 4.37") 03/12/2023 11:36 AM E DT Body Mass Index 33.82 03/12/2023 11:36 AM EDT documented in this encounter Functional Status [...] as of this encounter Nursing Notes * Cooper Bauer, ARBORICULTURE TEACHER - 03/12/2023 11:42 AM EDT Kaleb Okaley was identified by name, Date of : (1945), and . Vitals were obtained for testing. Body mass index is 33.82 kg/m. Exercise oximetry performed on room air x 1 minutes. Pt ambulated 60 feet/ 18 meters. No rest periods were required. Lowest SPO2 on room air was 86%. Pt placed on 1 liters. Exercise oximetry performed on l liters x 1.5 minutes. Pt ambulated 90 feet/27 meters. No rest periods were required. Lowest SPO2 on 1 liters was 85%. Pt placed on 2 liters. Exercise oximetry performed on 2 liters x 2.5 minutes. Pt ambulated 105feet/32 meters. No rest periods were required. Lowest SPO2 on 2 liters was 87%. Pt placed 3 on liters. Exercise oximetry performedon 3 liters x 3 minutes. Pt ambulated 150 feet/ 46 meters. No rest periods were required. Lowest SPO2 on 3 liters was 88%. Pt placed on 4 liters. Exercise oximetry performed on 4 liters x 3 minutes. Pt ambulated 195 feet/ 59 meters. No rest periods were required. Lowest SPO2 on 4 liters was 90%. documented in this encounter Plan of Treatment Upcoming Encounters Date Type Specialty Care Team Description 03/16/2023 Office Visit Pul[facility] [address] [facility] [address] 03/17/2023 Imaging Radiology 03/17/2023 Imaging Radiology 03/17/2023 Imaging Radiology 03/17/2023 Office Visit Vascular Surgery Marco Antonio Lara MD [address] [place] [address] 03/18/2023 Laboratory Laboratory Processing [facility], [facility] Mobile Home Draw [address] [place] [address] 03/19/2023 [facility] [address] [facility] [place] [address] 03/22/2023 Office Visit Cardiology Faby Singleton PA-C [address] [place] [address] 03/25/2023 Home Visit [facility] Kassy Campos, RN [address] [place] [address] 05/18/2023 Office Visit Family Medicine Zachariah Duarte, DO [address] [place] [address] 07/22/2023 Office Visit Sleep Disorders Hartman, Marnie Fermin, DO [address] [place] [address] Scheduled Procedures Name Priority Associated Diagnoses Date/Ti [...] Additional history exists CKD PHOS USE SMARTSET 24555 07/02/202306/23, 07/01/2021, 03/22/2020 DIABETES-EYE EXAM 07/20/2023 07/20/2022, , 08/26/2020, Additional history exists O2 ASSESSMENT COMPLETED IN PAST YEAR FOR COPD 08/10/2023 08/10/2022 DISCUSS TOBACCO CESSATION (REFER TO SMARTSET #3291) 08/26/2023 08/26/2022, 05/27/2022, 02/11/2022, Additional history exists Depression Screening, Annual for Pts 12 and Over 11/21/2023 11/20/2022 CKD HGB USE SMARTSET 08894 12/02/202312/01, 12/01/2022, 02/06/2022, Additional history exists DXA Scan 03/11/2024 03/11/2023 DTaP,Tdap,and Td Vaccines (3 - Td or Tdap) 01/11/2028 01/10/2018, 10/03/2012 VITAMIN D LEVEL ONCE IN A LIFETIME-USE SMARTSET# [id number] Completed 05/12/2014 Pneumococcal Vaccine: 65+ Years Completed 05/14/2015, 09/11/2009, 07/12/2003 Zoster Vaccines Completed 03/22/2020, 08/30/2019 COLONOSCOPY-EVERY 5 YRS AGES 18-100 Discontinued 11/19/2020, 11/19/2020, 05/16/2015, Additional history exists Alpha-1 Antitrypsin Completed 03/11/2022 LUNG CANCER SCREENING - USE SMARTSET 01002 Completed 02/09/2023, 01/21/2022, 07/24/2021 GARDASIL-HPV IMMUNIZATION SERIES [...] the patient have Health Care Power of Furnace Combination Analyst? No Full Code 08/14/2010 2:57 PM 08/15/2010 2:24 PM Thi s order reflects the patients wishes and were consensually agreed upon. Care Teams Healthcare Translator Relationship Specialty Start Date End Date Zachariah Duarte DO [address] [place] [address] PCP - General Family Medicine 12/20/20 documented as of this encounter
--- OUTSIDE RECORDS SUMMARY | 2023-08-28 08:42 | External Medical Summary | Summary of Care ---
Author Name Unknown Organization [facility] Address [address] [facility] [place] [address] Phone [phone] Care Team Providers Care Harvester Operator Name Role Phone Zachariah Duarte DO Primary Care Provider Reason for Visit * Reason Comments Oxygen Assessment 3 minute walk Encounter Details Date Type Department Care Team Description 03/12/2023 PulmDiagnostic Pulmonary Function Lab, [facility] [address] [place] [address] [place], [address] [facility] [place] [address] Chronic respiratory failure with hypoxia (HCC)* Allergies [...] as directed 1 Kit 0 03/09/2012 Active There CorporationTOUCH DELICA LANCETS MISCIndications:DM type 2, goal A1C [...] 1 Each 0 04/09/2022 Active oxygen IN GASIndications: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 17 Last Assessment & Plan: Cognition at baseline -not tolerating Aricept HTN (hypertension) 09/28/2012 Atherosclerosis of [place] artery of extr emity 06/22/2012 Obstructive sleep [...] this encounter Nursing Notes * Cooper Bauer, MEDICAL OFFICE ASSISTANT - 03/12/2023 11:42 AM EDT Kaleb Oakley was identified by name, Date of : [...] Care Team Description 03/16/2023 Office Visit Pulmonary Grey Green [facility] [address] [facility] [address] 03/17/2023 Imaging Radiology 03/17/2023 Imaging Radiology 03/17/2023 Imaging Radiology 03/17/2023 Office Visit Vascular Surgery Marco Antonio Lara MD [address] [place] [address] 03/18/2023 Laboratory Laboratory Processing [facility], [facility] Mobile Home Draw [address] [place] [address] 03/19/2023 [facility] [address] [facility] [place] [address] 03/22/2023 Office Visit Cardiology Faby Singleton PA-C [address] [place] [address] 03/25/2023 Home Visit [facility] Kassy Campos, RN [address] [place] [address] 05/18/2023 Office Visit Family Medicine Zachariah Duarte, DO [address] [place] [address] 07/22/2023 Office Visit Sleep Disorders Marnie Hartman, DO [address] [place] [address] Scheduled Procedures Name Priority Associated Diagnoses Date/Ti [...] Additional history exists CKD PHOS USE SMARTSET 24737 07/02/202306/232, 07/01/2021, 03/22/2020 DIABETES-EYE EXAM 07/20/2023 07/20/2022, , 08/26/2020, Additional history exists O2 ASSESSMENT COMPLETED IN PAST YEAR FOR COPD 08/10/2023 08/10/2022 DISCUSS TOBACCO CESSATION (REFER TO SMARTSET #3291) 08/26/2023 08/26/2022, 05/27/2022, 02/11/2022, Additional history exists Depression Screening, Annual for Pts 12 and Over 11/21/2023 11/20/2022 CKD HGB USE SMARTSET 57143 12/02/202312/01, 12/01/2022, 02/06/2022, Additional history exists DXA Scan 03/11/2024 03/11/2023 DTaP,Tdap,and Td Vaccines (3 - Td or Tdap) 01/11/2028 01/10/2018, 10/03/2012 VITAMIN D LEVEL ONCE IN A LIFETIME-USE SMARTSET# [id number] Completed 05/12/2014 Pneumococcal Vaccine: 65+ Years Completed 05/14/2015, 09/11/2009, 07/12/2003 Zoster Vaccines Completed 03/22/2020, 08/30/2019 COLONOSCOPY-EVERY 5 YRS AGES 18-100 Discontinued 11/19/2020, 11/19/2020, 05/16/2015, Additional history exists Alpha-1 Antitrypsin Completed 03/11/2022 LUNG CANCER SCREENING - USE SMARTSET 55484 Completed 02/09/2023, 01/21/2022, 07/24/2021 GARDASIL-HPV IMMUNIZATION SERIES [...] patient have Health Care Power of Sales Clerk? No Full Code 08/14/2010 2:57 PM 08/15/2010 2:24 PM Thi s order reflects the patients wishes and were consensually agreed upon. Care Teams Harvester Operator Relationship Specialty Start Date End Date Zachariah Duarte DO [address] [place] [address] PCP - General Family Medicine 12/20/20 documented as of this encounter
--- OUTSIDE RECORDS SUMMARY | 2023-08-28 08:42 | External Medical Summary | Summary of Care ---
Author Name Unknown Organization [facility] Address [address] [facility] [place] [address] Phone [phone] Care Team Providers Care Older Worker Specialist Name Role Phone Kj Duarteinic Primary Care Provider [phone] Reason for Visit * Reason Onset Date Comments [facility]: Maintenance 02/12/2023 Encounter Details Date Type Department Care Team Description 02/12/2023 Telephone [facility], [facility] [address] [place] [address] Danitza Salinas, RN [address] [place] [address] [facility]: Maintenance Allergies Active Allergy Reactions Severity Noted Date Comments Propoxyphene N-Acetaminophen 012 N/V Fentanyl Nausea/vomiting 10/15/2009 Oxycodone-Acetaminophen Nausea/vomiting High 010 documented as of this encounter (statuses as of 03/08/2023) Medications Medication Sig Dispensed Refills Start Date [...] AND 3 ML BEFORE BEDTIME 360 mL 04/09/20 22 023 Active Docusate Sodium 100 MG Oral Tablet Take 1 Tablet by mouth in the morning and 1 Tablet before bedtime. 0 Active Tylenol 325 MG Oral Capsule (Acetaminophen) Take 650 mg by mouth in the morning and 650 mg before bedtime. 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 90 Capsule 3 07/20/20 22 022 Discontinued(Le gacy prescription brought in as discontinued) Famotidine 20 MG Oral Tablet (Pepcid)Indication s:Gastro-esophagea l reflux disease without esophagitis Take 1 Tablet (20 mg) by mouth 2 times a day as needed for Heartburn. 30 Tablet 1 08/03/20 22 022 Discontinued([facility] g[facility] prescription brought in as discontinued) Ranolazine ER 500 MG Oral Tablet Extended Release 12 Hour (Ranexa)Indication s:Coronary artery disease of [place] artery of [place] heart with stable angina pectoris (HCC) Take 1 Tablet by mouth in the morning and 1 Tablet before bedtime. 180 Tablet 3 09/07/19 23 023 Discontinued(Le gacy prescription brought in as discontinued) Isosorbide Mononitrate ER 60 MG Oral Tablet Extended Release 24 Hour (Imdur)Indications :HTN, goal below 130/80,Old myocardial infarction TAKE ONE TABLET BY MOUTH TWICE A DAY 200 Tablet 1 09/15/19 23 023 Discontinued([facility] gacy prescription brought in as discontinued) Atorvastatin Calcium 80 MG Oral Tablet (Lipitor)Indicatio ns:Dyslipidemia, goal LDL below 100 TAKE ONE TABLET BY MOUTH EVERY DAY 90 Tablet 0 10/06/19 23 023 Discontinued([facility] g[facility] prescription brought in as discontinued) Pantoprazole Sodium 40 MG Oral Tablet Delayed Release (Protonix)Indicati ons:Gastroesophage al reflux disease TAKE ONE TABLET BY MOUTH EVERY DAY 90 Tablet 2 10/06/19 23 023 Discontinued([facility] gacy prescription brought in as discontinued) Furosemide 20 MG Oral Tablet (Lasix) Take 1 Tablet by mouth in the morning. Plus additional one tablet two days per week. 110 Tablet 3 10/24/19 23 023 Discontinued([facility] gacy prescription brought in as discontinued) Warfarin Sodium 5 MG Oral Tablet (Coumadin) Take 1 Tablet by mouth at bedtime. 90 Tablet 3 11/03/19 23 023 Discontinued(Le gacy prescription brought in as discontinued) Umeclidinium [place] 62.5 MCG/ACT Inhalation Aerosol Powder Breath Activated (INCRUSE ellipta)Indication s:COPD, group B, by GOLD 2017 classification ([facility]) Inhale 1 Puff by mouth in the morning. 90 Each 3 11/06/19 23 023 Discontinued([facility] gacy prescription brought in as discontinued) traZODone HCl 100 MG Oral Tablet (Desyrel) TAKE ONE TABLET BY MOUTH AT BEDTIME NEEDED FOR SLEEP 90 Tablet 2 11/14/19 23 023 Discontinued([facility] gacy prescription brought in as discontinued) Clopidogrel Bisulfate 75 MG Oral Tablet (pLAVix)Indication s:History of TIA (transient ischemic attack) TAKE ONE TABLET BY MOUTH EVERY DAY 100 Tablet 1 12/23/19 23 023 Discontinued([facility] gacy prescription brought in as discontinued) Memantine HCl 5 MG Oral Tablet (Namenda)Indicatio ns: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) Take 1 Tablet by mouth in the morning and 1 Tablet before bedtime. 60 Tablet 5 12/30/19 23 023 Discontinued([place] gacy prescription brought in as discontinued) Metoprolol Tartrate 100 MG Oral Tablet (Lopressor)Indicat ions:Essential hypertension with goal blood pressure less than 140/90 Take 1 Tablet by mouth in the morning and 1 Tablet before bedtime. 180 Tablet 3 12/31/19 23 023 Discontinued(Susan esquivel prescription brought in as discontinued) documented as of this encounter (statuses as of 03/08/2023) Active Problems Problem Noted Date Age-related osteopor [...] artery disease of n ative artery of [place] heart with stable angina pectoris 01/30/2017 Overview: More specific. 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 Last Assessment & Plan: Cognition at baseline -not tolerating Aricept HTN (hypertension) 09/28/2012 Atherosclerosis of [place] artery of extr emity 06/22/2012 Obstructive sleep apnea 01/13/2010 Overview: ICD-10 update of inactive term Last Assessment & Plan: Compliant with CPAP Old myocardial infarction 10/25/2009 Lumbar disc disorder with myelopathy Overview: Fentanyl patch caused severe nausea and vomiting Failed ultram Oxycodone caused nausea Preglaucoma 08/29/1998 History of TIA (transient ischemic attac k) documented as of this encounter (statuses as of 03/08/2023) Resolved Problems Problem Noted Date Resolved Date [...] as of this encounter (statuses as of 03/08/2023) Immunizations Name Administration Dates Next Due COVID-19 [...] encounter Miscellaneous Notes * Telephone Encounter - Danitza Salinas RN - 02/12/2023 3:50 PM EDT Pt in need of rescheduled appts. Please assist in getting Cardiology, Pulmonology, and Pulmonary function test rescheduled. Thank you. documented in this encounter Plan of Treatment Upcoming Encounters Date Type Specialty Care Team Description 03/11/2023 Imaging Radiology 03/12/2023 PulmDiagnostic Pulmonary Function [place], Pft [address] [place] [address] 03/16/2023 Office Visit Pulmonary Grey Green MD [address] [facility] [place] [address] 03/17/2023 Imaging Radiology 03/17/2023 Imaging Radiology 03/17/2023 Imaging Radiology 03/17/2023 Office Visit Vascular Surgery Marco Antonio Lara MD [address] [place] [address] 03/18/2023 Laboratory Laboratory Processing [facility], [facility] Mobile Home Draw [address] [place], [place] [id number] 03/19/2023 [facility] [address] [place] [address] 03/22/2023 Office Visit Cardiology Faby Singleton PA-C [address] [place] [address] 03/25/2023 Home Visit [facility] Kassy Campos RN [address] [place] [address] 05/18/2023 Office Visit Family Medicine Zachariah Duarte, [address] [place] [address] 07/22/2023 Office Visit Sleep Disorders Marnie Hartman DO [address] [place] [address] Scheduled Procedures Name Priority Associated Diagnoses Date/Ti [...] Additional history exists CKD PHOS USE SMARTSET 06728 07/02/202306/23, 07/01/2021, 03/22/2020 DIABETES-EYE EXAM 07/20/2023 07/20/2022, , 08/26/2020, Additional history exists O2 ASSESSMENT COMPLETED IN PAST YEAR FOR COPD 08/10/2023 08/10/2022 DISCUSS TOBACCO CESSATION (REFER TO SMARTSET #5853) 08/26/2023 08/26/2022, 05/27/2022, 02/11/2022, Additional history exists Depression Screening, Annual for Pts 12 and Over 11/21/2023 11/20/2022 CKD HGB USE SMARTSET 36622 12/02/202312/01, 12/01/2022, 02/06/2022, Additional history exists DTaP,Tdap,and Td Vaccines (3 - Td or Tdap) 01/11/2028 01/10/2018, 10/03/2012 VITAMIN D LEVEL ONCE IN A LIFETIME-USE SMARTSET# 08798 Completed 05/12/2014 Pneumococcal Vaccine: 65+ Years Completed [...] the patient have Health Care Power of Forming Mill Operator? No Full Code 08/14/2010 2:57 PM 08/15/2010 2:24 PM Thi s order reflects the patients wishes and were consensually agreed upon. Care Teams Older Worker Specialist Relationship Specialty Start Date End Date Zachariah Duarte DO [address] [place] [address] PCP - General Family Medicine 12/20/20 documented as of this encounter
--- OUTSIDE RECORDS SUMMARY | 2023-08-28 08:42 | External Medical Summary | Summary of Care ---
Author Name Unknown Organization [facility] Address [address] [place] [place] [address] Phone [phone] Care Team Providers Care Heat Sealing Machine Operator Name Role Phone Kj Duarteinic Primary Care Provider Reason for Visit * Reason Comments [facility] Care Coordination Services Encounter Details Date Type Department Care Team Description 03/02/2023 Home Visit Care Coordination [address] [facility] [place] [address] Delaney Mahoney [address] [place] [address] COPD, group B, by GOLD 2017 classification ([facility])*; Hypertensive heart and kidney disease with chronic diastolic congestive heart failure and stage 3a chronic kidney disease ([facility]); Hypertension, unspecified type; Type 2 diabetes mellitus with diabetic polyneuropathy, with long-term current use of insulin ([facility]) Allergies Active Allergy Reactions Severity Noted Date Comments Propoxyphene N-Acetaminophen 012 N/V Fentanyl Nausea/vomiting 10/15/2009 Oxycodone-Acetaminophen Nausea/vomiting High 010 documented as of this encounter (statuses as of 03/16/2023) Medications Medication Sig Dispensed Refills Start Date End Date Status SYRINGE (DISPOSABLE) 5 ML MISCIndications:DM type 2 causing neurological disease (HCC) use as directed for lantus 1 box 11 09/11/2009 Active Milestone Software ULTRA 2 W/DEVICE KITIndications:DM type 2, goal [...] 1 Each 0 04/09/2022 Active oxygen IN GASIndications:Ginning Operator bobbi respiratory failure with hypoxia (HCC),Centrilobular [...] 90 Tablet 2 11/13/2022 4 Active Umeclidinium [place] 62.5 MCG/ACT Inhalation Aerosol Powder Breath [...] 12 Hour (Ranexa)Indications :Coronary artery disease of [place] artery of [place] heart with stable angina pectoris (HCC) TAKE [...] artery disease of n ative artery of [place] heart with stable angina pectoris 01/30/2017 Overview: More specific. 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 17 Last Assessment & Plan: Cognition at baseline -not tolerating Aricept HTN (hypertension) 09/28/2012 Atherosclerosis of [place] artery of extr emity 06/22/2012 Obstructive sleep [...] Sign Reading Time Taken Comments Blood Pressure 140/62 03/02/2023 2:00 PM EDT Pulse 60 03/02/2023 2:00 PM EDT Temperature 36.7 C (98.1 F) 03/02/2023 2:00 PM ED T Respiratory Rate 18 03/02/2023 2:00 PM EDT Oxygen Saturation 97% 03/02/2023 2:00 PM EDT at rest on RA Inhaled Oxygen Concentration - - Weight - [...] as of this encounter Progress Notes * Delaney Mahoney [facility] Tool Planer Set Up Operator - 03/02/2023 4:11 PM EDT Community Health Tool Planer Set Up Operator Visit Date: 03/02/2023 Time: 1:30 PM Name: Kaleb Oakley : 1945 Referral Source: Provider Source of Information: Patient and , Sammi Spoken language: Palauan Patient can read in Palauan: Yes. Network Communications Engineer needed: No. COVID-19 screening completed: Yes Vitals: Vital signs completed: Yes, vital signs within normal range. BP 140/62 (BP Site: Left Arm, BP Position: Sitting, BP Cuff Size: Regular) | Pulse 60 | Temp 36.7 C (98.1 F) | Resp 18 | SpO2 97% Comment: at rest on RA Condition Changes: Changes in health or social status since last visit: [facility] HV for FATUMA #4 Patient admitted then transferred to rehab s/p fall resulting in vertebral fractures. Lives at home with . First floor set up with ramp to enter. Family lives nearby and is attentive. Patient well supported by , who is his primary caregiver. Reports pain as per baseline. In recliner chair with legs elevated upon [facility] arrival. States 'it doesn't hurt when I sit like this" Continues with pain management regimen. Medical marijuana use and pain relief patches. makes gum drops with the tonic. Patient reports this is effective. COPD and CHF dx. Patient reports breathing is baseline. Weakness currently, so unable to walk far. States he would become SOB if he walked further. Continues with neb tx and inhalers as per order. O2with CPAP at night. Does not weigh self regularly at home. Keeps track of weight from appointments - states he has lost about 7 pounds since November. No swelling of legs/abd. The patient has new concerns since last visit: No Progress towards goals since last visit: Continues working toward goals Patient's Goals of Care: 1. Stay out of the hospital 2. Get rid of back pain 3. Get stronger Medications: Medication review completed? No, Does the patient have barriers to medication adherence? No. manages meds. Would benefit from pill manufacturing planner to make this easier on her. Patient reports difficulty paying for medications or might in the future: No. Telehealth: This is a telehealth visit: No. Symptoms Surveys and Evaluations: [facility] completed this visit: No. Last flowsheet values for [facility]: Age 65+: 1 (02/12/2023 3:00 PM) Diagnosis (3 or more co-existing): 1 (02/12/2023 3:00 PM) Prior history of falls within 3 months: 1 (02/12/2023 3:00 PM) Incontinence: 0 (02/12/2023 3:00 PM) Visual impairment: 0 (02/12/2023 3:00 PM) Impaired functional mobility: 1 (02/12/2023 3:00 PM) Environmental hazards: 1 (02/12/2023 3:00 PM) Poly Pharmacy (4 or more prescriptions - any type): 1 (02/12/2023 3:00 PM) Pain affecting level of function: 1 (02/12/2023 3:00 PM) Cognitive impairment: 0 (02/12/2023 3:00 PM) Score - a score of 4 or more is considered at risk for fallin (02/12/2023 3:00 PM) Home Safety Does member identify any safety issues related to entering or exiting their home? No Does the patient need a wheelchair ramp to access the home? No Snow/ice removal assistance available? Yes Is there adequate lighting? Yes Are there railings on stairs? Yes Do sidewalks appear to be in good repair? Yes Does member identify any safety issues related to the interior of their home? No If durable medical equipment is used, halls and doorways easy to navigate? Yes Are there trip hazards in the home? No Are there working smoke detectors/CO2 detectors? Yes Is a health condition present or an air quality concern that an air conditioner or other coolingdevice will help? No Do stairs in the home have railings? Yes Is there a medical alert or phone near patient? Yes Are walkways clear and well lit? Yes Does member identify any safety issues related to utilizing or accessing the bathroom in their home? No Does bathroom have grab bars needed? Yes The patient reports needing help getting on and off the toilet? Yes Does the patient report needing help bathing? Yes Are there any other identified issues/needs? No. If yes specify: Plan: Reinforced patient's three red flags by the care team Patient's 'Red Flags': 1. Fall w /injury 2. Increased weakness 3. Change in mental status Follow Up: Patient encouraged to call the intake phone number for all urgent but not emergent issues. Scheduled to follow up with patient in as needed. [facility] 03/02/2023 4:11 PM documented in this encounter Plan of Treatment Upcoming Encounters Date Type Specialty Care Team Description 03/16/2023 [facility] Visit [facility] [address] [facility] [id number] 03/17/2023 Imaging Radiology 03/17/2023 Imaging Radiology 03/17/2023 Imaging Radiology 03/17/2023 Office Visit Vascular Surgery Marco Antonio aLra MD [address] [place] [address] 03/18/2023 Laboratory Laboratory Processing [facility] Mobile Home Draw [address] [place], [place] [id number] 03/19/2023 [facility] [address] [facility] [address] 03/22/2023 Office Visit Cardiology Faby Singleton PA-C [address] [place] [address] 03/25/2023 Home Visit [facility] Kassy Campos, [address] [place] [address] 05/18/2023 Office Visit Family Medicine Zachariah Duarte, [address] [place] [address] 07/22/2023 Office Visit Sleep Disorders Marnie Hartman DO [address] [place] [address] Scheduled Procedures Name Priority Associated Diagnoses Date/Ti [...] Additional history exists CKD PHOS USE SMARTSET 40284 07/02/202306/23, 07/01/2021, 03/22/2020 DIABETES-EYE EXAM 07/20/2023 07/20/2022, , 08/26/2020, Additional history exists O2 ASSESSMENT COMPLETED IN PAST YEAR FOR COPD 08/10/2023 08/10/2022 DISCUSS TOBACCO CESSATION (REFER TO SMARTSET #3291) 08/26/2023 08/26/2022, 05/27/2022, 02/11/2022, Additional history exists Depression Screening, Annual for Pts 12 and Over 11/21/2023 11/20/2022 CKD HGB USE SMARTSET 74603 12/02/202312/01, 12/01/2022, 02/06/2022, Additional history exists DXA Scan 03/11/2024 03/11/2023 DTaP,Tdap,and Td Vaccines (3 - Td or Tdap) 01/11/2028 01/10/2018, 10/03/2012 VITAMIN D LEVEL ONCE IN A LIFETIME-USE SMARTSET# [id number] Completed 05/12/2014 Pneumococcal Vaccine: 65+ Years Completed 05/14/2015, 09/11/2009, 07/12/2003 Zoster Vaccines Completed 03/22/2020, 08/30/2019 COLONOSCOPY-EVERY 5 YRS AGES 18-100 Discontinued 11/19/2020, 11/19/2020, 05/16/2015, Additional history exists Alpha-1 Antitrypsin Completed 03/11/2022 LUNG CANCER SCREENING - USE SMARTSET 46632 Completed 02/09/2023, 01/21/2022, 07/24/2021 GARDASIL-HPV IMMUNIZATION SERIES [...] as of this encounter Visit Diagnoses Diagnosis COPD, group B, by GOLD 2017 classification (HCC)- Primary 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) Hypertension, unspecified type Type 2 diabetes mellitus with diabetic polyneuropathy, with long-term current use of insulin (HCC) documented in this encounter Advance Directives [...] the patient have Health Care Power of Retread Mold Operator? No Full Code 08/14/2010 2:57 PM 08/15/2010 2:24 PM Thi s order reflects the patients wishes and were consensually agreed upon. Care Teams Heat Sealing Machine Operator Relationship Specialty Start Date End Date Zachariah Duarte DO [address] [place] [address] PCP - General Family Medicine 12/20/20 documented as of this encounter
--- OUTSIDE RECORDS SUMMARY | 2023-08-28 08:42 | External Medical Summary | Summary of Care ---
Author Name Unknown Organization [facility] Address [address] [facility] [place] [address] Phone [phone] Care Team Providers Care Dairy Cattle Farm Manager Name Role Phone Zachariah Duarte DO Primary Care Provider Reason for Visit * Reason Onset Date Comments Appointment 03/05/2023 Encounter Details Date Type Department Care Team Description 03/05/2023 Telephone [facility] [address] [facility] [place] [address] Svetlana James, [facility] Change Over Appointment Allergies Active Allergy Reactions Severity Noted Date [...] 1 Each 0 04/09/2022 Active oxygen IN GASIndications:A R Specialist bobbi respiratory failure with hypoxia (HCC),Centrilobular [...] 90 Tablet 2 11/13/2022 4 Active Umeclidinium [place] 62.5 MCG/ACT Inhalation Aerosol Powder Breath Activated [...] 12 Hour (Ranexa)Indications :Coronary artery disease of [place] artery of [place] heart with stable angina pectoris (HCC) TAKE [...] artery disease of n ative artery of [place] heart with stable angina pectoris 01/30/2017 Overview: More specific. 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 17 Last Assessment & Plan: Cognition at baseline -not tolerating Aricept HTN (hypertension) 09/28/2012 Atherosclerosis of [place] artery of extr emity 06/22/2012 Obstructive sleep [...] encounter Miscellaneous Notes * Telephone Encounter - [facility] Change [facility] - 03/05/2023 3:20 PM EDT Outbound call to patient regarding rescheduling his appointment for 03/25/2023 @ 12:30 pm with Kassy James, VENICE documented in this encounter Plan of Treatment Upcoming Encounters Date Type Specialty Care Team Description 03/11/2023 Imaging Radiology 03/17/2023 Imaging Radiology 03/17/2023 Imaging Radiology 03/17/2023 Imaging Radiology 03/17/2023 Office Visit Vascular Surgery Marco Antonio Lara MD [address] [place] [address] 03/18/2023 Laboratory Laboratory Processing [facility] [place], [facility] Home Draw [address] [place] [address] 03/19/2023 [facility] [address] [place] [address] 03/25/2023 Home Visit [facility] Kassy Campos, RN [address] [facility] [address] 05/18/2023 Office Visit Family Medicine Zachariah Duarte, DO [address] [place] [address] 07/22/2023 Office Visit Sleep Disorders Marnie Hartman, DO [address] [place] [address] Scheduled Procedures Name Priority Associated Diagnoses Date/Ti [...] Additional history exists CKD PHOS USE SMARTSET 58002 07/02/202306/23, 07/01/2021, 03/22/2020 DIABETES-EYE EXAM 07/20/2023 07/20/2022, , 08/26/2020, Additional history exists O2 ASSESSMENT COMPLETED IN PAST YEAR FOR COPD 08/10/2023 08/10/2022 DISCUSS TOBACCO CESSATION (REFER TO SMARTSET #3291) 08/26/2023 08/26/2022, 05/27/2022, 02/11/2022, Additional history exists Depression Screening, Annual for Pts 12 and Over 11/21/2023 11/20/2022 CKD HGB USE SMARTSET 70665 12/02/202312/01, 12/01/2022, 02/06/2022, Additional history exists DTaP,Tdap,and Td Vaccines (3 - Td or Tdap) 01/11/2028 01/10/2018, 10/03/2012 VITAMIN D LEVEL ONCE IN A LIFETIME-USE SMARTSET# [id number] Completed 05/12/2014 Pneumococcal Vaccine: 65+ Years Completed [...] the patient have Health Care Power of Food Service Worker [facility]? No Full Code 08/14/2010 2:57 PM 08/15/2010 2:24 PM Thi s order reflects the patients wishes and were consensually agreed upon. Care Teams Dairy Cattle Farm Manager Relationship Specialty Start Date End Date Zachariah Duarte DO [address] [place] [address] PCP - General Family Medicine 12/20/20 documented as of this encounter
--- OUTSIDE RECORDS SUMMARY | 2023-08-28 08:43 | External Medical Summary ---
Author Name Unknown Address Unknown Organization K0G:[facility] [place] [address] [place] [id number] Laboratory Report Ordering Provider Test Date Status LUIS ALBERTO CASH 03/04/2023 10:14:00 Final Warfarin Therapy
INR: 2 .0-3.0 conventional anticoagulation
INR: 2.5- 3.5 high intensity anticoagulation Observation Date Value Abnormality Reference (Units ) Status PT 03/04/2023 10:14:00 29.0 Above high normal 11 .6-15.2 (seconds) Final INR 03/04/2023 10:14:00 2.7 Above high normal 0. 8-1.2 Final Performing Location [facility] [place] [facility] [address] [place] [id number]
--- OUTSIDE RECORDS SUMMARY | 2023-08-28 08:43 | External Medical Summary | Summary of Care ---
Author Name Unknown Organization [facility] Address [address] [facility] [place] [address] Phone [phone] Care Team Providers Care Inspector And Clerk Name Role Phone Zachariah Duarte DO Primary Care Provider Reason for Visit * Reason Comments Medication Refill Encounter Details Date Type Department Care Team Description 02/28/[address] [facility] [address] [place] [address] Zachariah Duarte DO [address] [place] [address] HTN, goal below 130/80; Old myocardial infarction Allergies Active Allergy Reactions Severity Noted Date Comments Propoxyphene N-Acetaminophen 012 N/V Fentanyl Nausea/vomiting 10/15/2009 Oxycodone-Acetaminophen Nausea/vomiting High 010 documented as of this encounter (statuses as of 03/02/2023) Medications Medication Sig Dispensed Refills Start Date [...] MIDNIGHT DAILY 30 mL 0 0 Active insulin REGULAR human (NOVOLIN R RELION) 100 UNIT/ML injectionIndication s:Type 1 diabetes mellitus with hemoglobin A1c goal of less than 8.0% (HCC) Inject 12 units with breakfast, 10 units with lunch, 15 units with dinner DISPENSE 5 vials 5 Each 3 0 Active Additional Information Patient taking differently: 15 [...] 1 Each 0 2 Active oxygen IN GASIndications:Db2 Dba bobbi respiratory failure with hypoxia (HCC),Centrilobular emphysema (HCC) 2 LPM by inogen or portable oxygen concentrator with exertion. Use 3 LPM by standing concentrator with sleep 1 Each 0 2 Active Ondansetron HCl 4 MG Oral Tablet (Zofran)Indications :Gastroparesis TAKE ONE TABLET BY MOUTH EVERY 6 HOURS NEEDED FOR NAUSEA. 15 Tablet 0 2 07/09/20 23 Active Ipratropium-Albuter ol 0.5-2.5 (3) MG/3ML Inhalation Solution (Duoneb)Indications :Centrilobular emphysema (HCC) INHALE 3 ML (1 VIAL) BY MOUTH VIA NEBULIZER IN THE MORNING AND 3 ML AT NOON THEN 3 ML IN THE EVENING AND 3 ML BEFORE BEDTIME 360 mL 11 2 04/09/20 23 Active Docusate Sodium 100 MG Oral Tablet [...] 60 Tablet 5 3 12/29/19 24 Active Clopidogrel Bisulfate 75 MG Oral Tablet (pLAVix)Indications :History of TIA (transient ischemic attack) TAKE ONE TABLET BY MOUTH EVERY DAY 100 Tablet 1 3 12/22/19 24 Active traZODone HCl 100 MG Oral Tablet (Desyrel) TAKE ONE TABLET BY MOUTH AT BEDTIME NEEDED FOR SLEEP 90 Tablet 2 3 11/13/19 24 Active Umeclidinium [place] 62.5 MCG/ACT Inhalation Aerosol Powder Breath Activated [...] 12 Hour (Ranexa)Indications :Coronary artery disease of [place] artery of [place] heart with stable angina pectoris (HCC) TAKE ONE TABLET BY MOUTH TWICE A DAY -- IN THE MORNING AND BEFORE BEDTIME 180 Tablet 3 3 09/07/19 24 Active Famotidine 20 MG Oral Tablet (Pepcid)Indications :Gastro-esophageal reflux disease without esophagitis TAKE ONE TABLET BY MOUTH TWO TIMES A DAILY AY NEEDED FOR HEARTBURN 30 Tablet 1 2 08/03/20 23 Active Nortriptyline HCl 75 MG Oral Capsule (Pamelor)Indication s:Diabetic polyneuropathy associated with type 1 diabetes mellitus (HCC) TAKE ONE CAPSULE BY MOUTH AT BEDTIME 90 Capsule 3 2 07/20/20 23 Active Isosorbide Mononitrate ER 60 MG Oral Tablet Extended Release 24 Hour (Imdur)Indications: HTN, goal below 130/80,Old myocardial infarction TAKE ONE TABLET BY MOUTH TWICE A DAY 200 Tablet 3 3 Active Isosorbide Mononitrate ER 60 MG Oral Tablet Extended Release 24 Hour (Imdur)Indications: HTN, goal below 130/80,Old myocardial infarction TAKE ONE TABLET BY MOUTH TWICE A DAY 200 Tablet 1 3 02/29/20 23 Discontinu ed(Refill) documented as of this encounter (statuses as of 03/02/2023) Active Problems Problem Noted Date Age-related osteopor [...] artery disease of n ative artery of [place] heart with stable angina pectoris 01/30/2017 Overview: More specific. 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 17 Last Assessment & Plan: Cognition at baseline -not tolerating Aricept HTN (hypertension) 09/28/2012 Atherosclerosis of [place] artery of extr emity 06/22/2012 Obstructive sleep apnea 01/13/2010 Overview: ICD-10 update of inactive term Last Assessment & Plan: Compliant with CPAP Old myocardial infarction 10/25/2009 Lumbar disc disorder with myelopathy Overview: Fentanyl patch caused severe nausea and vomiting Failed ultram Oxycodone caused nausea Preglaucoma 08/29/1998 History of TIA (transient ischemic attac k) documented as of this encounter (statuses as of 03/02/2023) Resolved Problems Problem Noted Date Resolved Date [...] as of this encounter (statuses as of 03/02/2023) Immunizations Name Administration Dates Next Due COVID-19 [...] encounter Miscellaneous Notes * Telephone Encounter - Yesica Pereira RPh - 03/02/2023 10:28 AM EDTSigned Prescriptions: Disp Refills Isosorbide Mononitrate ER 60 MG Oral Table*200 Ta*3 Sig: TAKE ONE TABLET BY MOUTH TWICE A DAYAuthorizing Provider: Lisette DUARTE User: YESICA PEREIRA documented in this encounter Plan of Treatment Upcoming Encounters Date Type Specialty Care Team Description 03/02/2023 Home Visit Family Medicine Delaney Mahoney, [facility] [address] [place] [address] 03/04/2023 Laboratory Laboratory Processing [facility] Mobile Home Draw [address] [place] [address] 03/05/2023 [facility] [address] [place] [address] 03/11/2023 Imaging Radiology 03/15/2023 Home Visit [facility] Kassy Campos RN [address] [place] [address] 03/17/2023 Imaging Radiology 03/17/2023 Imaging Radiology 03/17/2023 Imaging Radiology 03/17/2023 Office Visit Vascular Surgery Marco Antonio Lara MD [address] [place] [address] 05/18/2023 Office Visit Family Medicine Zachariah Duarte, DO [address] [place] [address] 07/22/2023 Office Visit Sleep Disorders Marnie Hartman DO [address] [place] [address] Scheduled Procedures Name Priority Associated Diagnoses Date/Ti [...] Additional history exists CKD PHOS USE SMARTSET 05524 07/02/202306/23, 07/01/2021, 03/22/2020 DIABETES-EYE EXAM 07/20/2023 07/20/2022, , 08/26/2020, Additional history exists O2 ASSESSMENT COMPLETED IN PAST YEAR FOR COPD 08/10/2023 08/10/2022 DISCUSS TOBACCO CESSATION (REFER TO SMARTSET #3291) 08/26/2023 08/26/2022, 05/27/2022, 02/11/2022, Additional history exists Depression Screening, Annual for Pts 12 and Over 11/21/2023 11/20/2022 CKD HGB USE SMARTSET 31168 12/02/202312/01, 12/01/2022, 02/06/2022, Additional history exists DTaP,Tdap,and Td Vaccines (3 - Td or Tdap) 01/11/2028 01/10/2018, 10/03/2012 VITAMIN D LEVEL ONCE IN A LIFETIME-USE SMARTSET# [id number] Completed 05/12/2014 Pneumococcal Vaccine: 65+ Years Completed [...] as of this encounter Visit Diagnoses Diagnosis HTN, goal below 130/80 Unspecified essential hypertension Old myocardial infarction documented in this encounter Advance Directives Latest [...] the patient have Health Care Power of Certified Coatings Inspector? No Full Code 08/14/2010 2:57 PM 08/15/2010 2:24 PM Thi s order reflects the patients wishes and were consensually agreed upon. Care Teams Inspector And Clerk Relationship Specialty Start Date End Date Zachariah Duarte DO [address] [place] [address] PCP - General Family Medicine 12/20/20 documented as of this encounter
--- OUTSIDE RECORDS SUMMARY | 2023-08-28 08:43 | External Medical Summary | Summary of Care ---
Author Name Unknown Organization [facility] Address [address] [place] [address] Phone [phone] Care Team Providers Care Catalog Specialist Name Role Phone Zachariah Duarte DO Primary Care Provider Reason for Visit * Reason Comments Dosage Adjustment Via Phone (anticoag Cl inic) Encounter Details Date Type Department Care Team Description 03/05/2023 Anticoagulation Pharmacy Call Center [phone] [place] [address] [facility] [address] [facility] [place] [address] Anticoagulation management encounter* Allergies Active Allergy Reactions [...] 1 Each 0 04/09/2022 Active oxygen IN GASIndications:Colorer Machine bobbi respiratory failure with hypoxia (HCC),Centrilobular emphysema [...] 90 Tablet 2 11/13/2022 4 Active Umeclidinium [place] 62.5 MCG/ACT Inhalation Aerosol Powder Breath Activated [...] (Ranexa)Indications :Coronary artery disease of [place] artery of [place] heart with stable angina pectoris (HCC) TAKE [...] of n ative artery of [place] heart with stable angina pectoris 01/30/2017 Overview: More specific. 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 17 Last Assessment & Plan: Cognition at baseline -not tolerating Aricept HTN (hypertension) 09/28/2012 Atherosclerosis of [place] artery of extr em[place] 06/22/2012 Obstructive sleep [...] of this encounter Progress Notes * Layne Christianson CPhT - 03/05/2023 8:12 AM EDT Contacts Type Contact Phone/Fax 03/05/2023 08:10 AM EDT Phone (Outgoing) Kaleb Oakley (Self) [phone] (H) Left Message Advised patient to contact Anticoagulation Clinic if any unusual bruising or bleeding, recent illness, changes in medication, or questions/concerns. PT/INR results, Coumadin dose instructions, and next PT/INR date communicated as noted by Pharmacist: Yes Layne Christianson CPhT 03/05/2023, 8:12 AM * Layne Fuller RP - 03/05/2023 7:54 AM EDT Coumadin Clinic (region specific) Current Warfarin Dose As of 03/05/2023 Warfarin maintenance plan: 2.5 mg (5 mg x 0.5) every day INR Result As of 03/05/2023 INR goal: 2.0-3.0 INR used for dosin.7 (03/04/2023) Warfarin Plan As of 03/05/2023 Full warfarin instructions: 2.5 mg every day No change documented: Layne Fuller RPh Next INR check: 03/18/2023 Repeat PT/INR in 2 week(s) Weekly dose: not changed Additional Dosing Information: Description GML Tech to contact patient with dose instructions as noted. Layne Fuller RPh 03/05/2023, 7:54 AM documented in this encounter Plan of Treatment Upcoming Encounters Date Type Specialty Care Team Description 03/11/2023 Imaging Radiology 03/15/2023 Home Visit [facility] Kassy Campos, RN [address] [place] [address] 03/17/2023 Imaging Radiology 03/17/2023 Imaging Radiology 03/17/2023 Imaging Radiology 03/17/2023 Office Visit Vascular Surgery Marco Antonio Lara MD [address] [place] [address] 03/19/2023 [facility] [address] [place] [address] 05/18/2023 Office Visit Family Medicine Zachariah Duarte, [address] [place] [address] 07/22/2023 Office Visit Sleep Disorders Marnie Hartman DO [address] [place] [address] Scheduled Procedures Name Priority Associated Diagnoses Date/Ti [...] Additional history exists CKD PHOS USE SMARTSET 58232 07/02/202306/23, 07/01/2021, 03/22/2020 DIABETES-EYE EXAM 07/20/2023 07/20/2022, , 08/26/2020, Additional history exists O2 ASSESSMENT COMPLETED IN PAST YEAR FOR COPD 08/10/2023 08/10/2022 DISCUSS TOBACCO CESSATION (REFER TO SMARTSET #9841) 08/26/2023 08/26/2022, 05/27/2022, 02/11/2022, Additional history exists Depression Screening, Annual for Pts 12 and Over 11/21/2023 11/20/2022 CKD HGB USE SMARTSET 60107 12/02/202312/01, 12/01/2022, 02/06/2022, Additional history exists DTaP,Tdap,and Td Vaccines (3 - Td or Tdap) 01/11/2028 01/10/2018, 10/03/2012 VITAMIN D LEVEL ONCE IN A LIFETIME-USE SMARTSET# 58632 Completed 05/12/2014 Pneumococcal Vaccine: 65+ Years Completed [...] patient have Health Care Power of Director Cpg? No Full Code 08/14/2010 2:57 PM 08/15/2010 2:24 PM Thi s order reflects the patients wishes and were consensually agreed upon. Care Teams Catalog Specialist Relationship Specialty Start Date End Date Zachariah Duarte DO [address] [place] [address] PCP - General Family Medicine 12/20/20 documented as of this encounter
[2023-08-28] MEDS ORDERED: PANTOprazole 40 MG TAB PO SCH (09:00)
[2023-08-28] MEDS ORDERED: UMECLIDINIUM BROMIDE 62.5MCG/BLISTER 7 PUFFS/INHALER INH SCH (09:00)
--- NOTE | 2023-08-29 07:50 | Communication Note ---
Date of Service: August 29, 2023 Patient had prolonged cardiac arrest on night of Aug 28 2022 as documented by critical care.Critical care and later cardiology tried to resuscitate the pa tient but unfortunately patient didn't recover. He at 02:54am Aug 28 2023. was notified about cardiac arrest and she came came to the hospital few minutes after patient .
--- NOTE | 2023-08-29 07:51 | Discharge Summary ---
Date of Service August 29, 2023 Admission HPI Per Admitting Provider 77-year-old male with PMH COPD, chronic hypoxic respiratory failure on 3 L of oxygen, VENICE on CPAP, extensive CAD s/p multiple stents and CABG, atrial flutter anticoagulated on Coumadin, PAD, diastolic CHF, HTN, GERD, history of TIA, and other problems listed below who presents to the ED for evaluation of shortness of breath. History is obtained from the patient and who is the bedside as well as review of outpatient PCP and cardiology records. Patient reports worsening shortness of breath over the past couple days. Reports last evening while laying in bed, he had sudden onset of chest pain for which she took 2 sublingual nitroglycerin and had resolution. Patient does not remember the last time he used nitroglycerin. Today, patient reports acute worsening of shortness of breath. Reports shortness of breath at rest as well as with minimal exertion. Today he developed a mild, dry, nonproductive cough. Denies fevers and chills. No lightheadedness, dizziness, diaphoresis, syncopal events. While in the ED, patient reports 4 episodes of vomiting. No abdominal pain, hematemesis, diarrhea, bright red bleeding per rectum, dark tarry stools. In the ED, patient was placed on high flow nasal cannula 40 L to maintain saturations. CXR shows signs of pulmonary edema. Initial HS troponin 1027, proBNP 785. EKG without acute ST changes. CTA chest negative for pulmonary embolism. Patient was given full dose aspirin, Lasix 40 mg IV, IV Zofran. Discharge Data Allergies Allergy/AdvReac Type Severity Reaction Status Date / Time fentanyl AdvReac Intermediate vomiting Verified 08/27/23 16:07 oxycodone AdvReac Intermediate vomiting Verified 08/27/23 16:07 propoxyphene AdvReac Intermediate Nausea - Verified 08/27/23 16:07 Darvocet Consultations 08/27/23 17:37 ED Decision to Admit Stat 08/27/23 18:32 Consult Deputy Chief Sheriff Routine 08/27/23 19:12 Consult Deputy Chief Sheriff Stat 08/27/23 20:53 Consult Cardiology Routine Procedures Performed Operation Date: 08/28/23 03:15 <No data on this case meets the specified criteria> Ordered Studies 08/27/23 17:54 CT for pulmonary embolism PE [CT angio chest PE protocol] Stat 08/27/23 23:34 US abdomen limited Routine 08/28/23 03:01 CL Cath Imgs for PACS use only Stat Discharge Plan Discharge Items Patient Disposition: Other Date/Time: 08/28/23 05:54
--- NOTE | 2023-08-29 21:34 | Electrocardiogram Report ---
Test Reason : Blood Pressure : / mmHG Vent. Rate : 073 BPM Atrial Rate : 073 BPM P-R Int : 192 ms QRS Dur : 086 ms QT Int : 408 ms P-R-T Axes : 059 -54 155 degrees QTc Int : 449 ms Normal sinus rhythm Left anterior fascicular block Abnormal ECG When compared with ECG of 27-AUG-2023 14:31, T wave inversion more evident in Lateral leads Confirmed by Kamron Sanchez ([id number]) on 08/29/2023 9:34:16 PM Referred By: REFERRED SELF Confirmed By:Kamron Sanchez
--- NOTE | 2023-08-29 22:25 | Electrocardiogram Report ---
Test Reason : Blood Pressure : / mmHG Vent. Rate : 143 BPM Atrial Rate : 117 BPM P-R Int : 000 ms QRS Dur : 120 ms QT Int : 330 ms P-R-T Axes : 000 -75 109 degrees QTc Int : 509 ms Possible Sinus tachycardia Left bundle branch block Abnormal ECG When compared with ECG of 27-AUG-2023 20:32, Vent. rate has increased BY 70 BPM Left bundle branch block is now Present Confirmed by Kamron Sanchez ([id number]) on 08/29/2023 10:24:59 PM Referred By: REFERRED SELF Confirmed By:Kamron Sanchez
--- NOTE | 2023-09-01 12:07 | Discharge Summary ---
Discharge Summary Date of Service September 01, 2023 Principal Dx & Hospital Course #1 = Principal Diagnosis (1) Acute hypoxic respiratory failure: (2) Acute exacerbation of CHF (congestive heart failure): (3) CAD (coronary artery disease): (4) Elevated troponin: Admit to telemetry Patient presenting from home with reports of shortness of breath. History of extensive CAD s/p CABG and multiple interventions, HFpEF managed with Lasix. In the ED, requiring 40L Hi Flow to maintain saturations CXR shows pulmonary edema, proBNP 785 Initial HS trop 1027 -> 954 Episode of chest pain last evening relieved with SL nitro x [address] changes Case discussed with cardiology Dr. Joseph and ICU Moses La, PRECIPITATOR OPERATOR Will hold Coumadin and start heparin infusion Change Hi Harjinder to BiPap S/p Lasix 40 mg IV in the ED, will hold on additional diuresis at this time and reevaluate volume status in the morning Resting echo Continue ASA and statin Due to borderline low BPs, will hold isosorbide, continue metoprolol with holding parameters in place (5) Atrial flutter: Rate controlled on metoprolol Holding Coumadin and placing on heparin as above (6) Diabetes mellitus, type II: Hgb A1c 7.0 03/2023 Hold home regimen of Novolin and and Novolin R and utilize Lantus and NovoLog per protocol while hospitalized Glycemic pharmacy consult (7) COPD (chronic obstructive pulmonary disease): Chronically on 3 L of oxygen No wheezing noted on exam Continue home inhalers (8) VENICE (obstructive sleep apnea): BiPAP as above DVT PROPHYLAXIS On IV heparin Patient seen in collaboration with Dr. Talbert. I spent a total of 75 minutes coordinating, documenting, and providing care for this patient excluding time spent in the performance of separately billed services. This included personally reviewing all current laboratories and imaging studies, medication reconciliation, outpatient chart review, and discussion with specialists. Updated Medication List Medication Instructions Recorded Confirmed Type nitroglycerin 0.4 mg sublingual 0.4 mg sublingual UD PRN Chest Pain 03/01/19 08/27/23 History tablet (Nitrostat) acetaminophen 500 mg tablet 1,000 mg (2 x 500 mg) PO BID #60 01/27/23 08/27/23 Rx (Tylenol Extra Strength) tabs atorvastatin 80 mg tablet 80 mg PO HS #30 tabs 01/27/23 08/27/23 Rx furosemide 20 mg tablet 20 mg PO QAM #30 tabs 01/27/23 08/27/23 Rx insulin regular human 100 unit/mL 15 unit (0.15 mL) subcut TIDM #10 01/27/23 08/27/23 Rx injection solution (Novolin R mL Regular U-100 Insulin) isosorbide mononitrate 60 mg 60 mg PO BID #60 tabs 01/27/23 08/27/23 Rx tablet,extended release 24 hr magnesium oxide 400 mg PO HS #30 tabs 01/27/23 08/27/23 Rx memantine 5 mg tablet 5 mg PO BID #60 tabs 01/27/23 08/27/23 Rx metoprolol tartrate 100 mg tablet 100 mg PO BID #60 tabs 01/27/23 08/27/23 Rx ondansetron HCl 4 mg tablet 4 mg PO Q6H PRN NAUSEA/VOMITING 01/27/23 08/27/23 Rx #30 tabs pantoprazole 40 mg tablet,delayed 40 mg PO QAM #30 tabs 01/27/23 08/27/23 Rx release ranolazine 500 mg tablet,extended 500 mg PO Q12H #60 tabs 01/27/23 08/27/23 Rx release,12 hr trazodone 100 mg tablet 100 mg PO HS PRN Sleep #30 tabs 01/27/23 08/27/23 Rx umeclidinium 62.5 mcg/actuation 1 inh inhalation DAILY #30 ea 01/27/23 08/27/23 Rx blister powder for inhalation cholecalciferol (vitamin D3) 25 25 mcg PO DAILY 08/27/23 08/27/23 History mcg (1,000 unit) tablet insulin NPH isoph U-100 human 100 26 unit subcut HS 08/27/23 08/27/23 History unit/mL subcutaneous suspension (Novolin N NPH U-100 Insulin isophane) insulin NPH isoph U-100 human 100 36 unit subcut QDL 08/27/23 08/27/23 History unit/mL subcutaneous suspension (Novolin N NPH U-100 Insulin isophane) vitamin E 1,000 unit tablet 1 tab PO DAILY 08/27/23 08/27/23 History warfarin 5 mg tablet 2.5 mg PO QPM 08/27/23 08/27/23 History Hospital Stay Data Consultations 08/27/23 17:37 ED Decision to Admit Stat 08/27/23 18:32 Consult Staff Psychologist Routine 08/27/23 19:12 Consult Staff Psychologist Stat 08/27/23 20:53 Consult Cardiology Routine Procedures Performed Operation Date: 08/28/23 03:15 <No data on this case meets the specified criteria> Diagnostic Imagining Performed 08/27/23 17:54 CT for pulmonary embolism PE [CT angio chest PE protocol] Stat 08/27/23 23:34 US abdomen limited Routine 08/28/23 03:01 CL Cath Imgs for PACS use only Stat
== END 2023-08-28 05:54 | disposition expired ==
LOC: ED 14:21 → EDINP 19:18 → 1E 19:38